=== PATIENT | female | born 1940 | race Caucasian/White ===

== ENCOUNTER 2017-01-06 09:52 | Emergency (ER) | payer MEDICARE ==
[2017-01-06 10:46] LABS: ABSOLUTE LYMPHOCYTES (AUTO) 1.8 10^3/uL (0.5-4.7); ABSOLUTE MONOCYTES (AUTO) 0.6 10^3/uL (0.1-1.4); ABSOLUTE NEUT (AUTO) 4.6 10^3/uL (1.7-8.2); BASOPHILS % (AUTO) 0.6 % (0-2); EOSINOPHILS % (AUTO) 0.1 % (0-6); HEMATOCRIT 41.3 % (36.0-47.0); HEMOGLOBIN 13.9 g/dL (12.0-15.5); HGB HCT DIFFERENCE 0.4; LYMPHOCYTES % (AUTO) 25.4 % (13-45); MEAN CORPUSCULAR HEMOGLOBIN 28.3 pg (27.0-33.4); MEAN CORPUSCULAR HGB CONC 33.8 g/dL (32.0-36.0); MEAN CORPUSCULAR VOLUME 84 fl (80-97); MONOCYTES % (AUTO) 8.3 % (3-13); RED BLOOD COUNT 4.92 10^6/uL (3.72-5.28); RED CELL DISTRIBUTION WIDTH 14.1 % (11.5-14.0); SEGMENTED NEUTROPHILS % (AUTO) 65.6 % (42-78)
--- NOTE | 2017-01-06 10:48 | ER Document Report ---
ED Medical Screen (RME) - General Chief Complaint: Leg Pain Stated Complaint: WEAKNESS,BODY PAIN Mode of Arrival: Ambulatory Information source: Patient TRAVEL OUTSIDE OF THE [place] IN LAST 30 DAYS: No - HPI Onset: Other - 2-3 DAYS Onset/Duration: Gradual Context: HAS NOT BEEN TAKING BP MEDS, SAYS THEY MAKE LEG PAINS WORSE. Quality of pain: Other - TIGHTNESS Severity: Mild Associated Symptoms: None - Related Data Allergies/Adverse Reactions: latex [Latex] Allergy (Intermediate, Verified 01/06/17 10:11) ITCHING levofloxacin [From Levaquin] Allergy (Unknown, Verified 01/06/17 10:11) aspirin [Aspirin] Adverse Reaction (Mild, Verified 01/06/17 10:11) Thins blood too much Penicillins Adverse Reaction (Mild, Verified 01/06/17 10:11) Yeast infections Past Medical History - General Information source: Patient - Past Medical History Cardiac Medical History: Reports: Hx Hypercholesterolemia, Hx Hypertension Denies: Hx Congestive Heart Failure, Hx Coronary Artery Disease, Hx Heart Attack, Hx Pulmonary Embolism Pulmonary Medical History: Reports: Hx Asthma, Hx Bronchitis, Hx COPD, Hx Pneumonia Neurological Medical History: Denies: Hx Cerebrovascular Accident, Hx Migraine, Hx Seizures Renal/ Medical History: Denies: Hx Peritoneal Dialysis GI Medical History: Reports: Hx Gastroesophageal Reflux Disease, Hx Hiatal Hernia. Denies: Hx Hepatitis, Hx Ulcer Musculoskeltal Medical History: Reports Hx Arthritis Psychiatric Medical History: Reports: Hx Depression - on occassion Infectious Medical History: Denies: Hx Hepatitis Past Surgical History: Reports: Hx Abdominal Surgery - ODELL, Hx Appendectomy, Hx Tonsillectomy. Denies: Hx Hysterectomy, Hx Mastectomy, Hx Open Heart Surgery , Hx Pacemaker - Immunizations Hx Diphtheria, Pertussis, Tetanus Vaccination: No Review of Systems - Review of Systems Constitutional: No symptoms reported EENT: No symptoms reported Cardiovascular: No symptoms reported Respiratory: No symptoms reported Musculoskeletal: See HPI Physical Exam - Vital signs Vitals: Temp Pulse Resp BP Pulse Ox 97.7 F 72 22 H 177/83 H 97 01/06/17 10:00 01/06/17 10:00 01/06/17 10:00 01/06/17 10:00 01/06/17 10:00 Interpretation: Hypertensive, Tachypneic - General General appearance: Appears well - Extremities General upper extremity: Normal inspection General lower extremity: Normal inspection. No: Edema Course - Vital Signs Vital signs: Temp Pulse Resp BP Pulse Ox 97.7 F 72 22 H 177/83 H 97 01/06/17 10:00 01/06/17 10:00 01/06/17 10:00 01/06/17 10:00 01/06/17 10:00 - Laboratory Result Diagrams: 01/06/17 10:34 01/06/17 10:34
[2017-01-06 11:10] LABS: ALANINE AMINOTRANSFERASE 22 U/L (9-52); ALBUMIN 4.4 g/dL (3.5-5.0); ALKALINE PHOSPHATASE 74 U/L (38-126); ANION GAP 11 (5-19); ASPARTATE AMINO TRANSFERASE 30 U/L (14-36); BILIRUBIN,DIRECT 0.2 mg/dL (0.0-0.4); BILIRUBIN,TOTAL 0.6 mg/dL (0.2-1.3); BLOOD UREA NITROGEN 8 mg/dL (7-20); CALCIUM 10.3 mg/dL (8.4-10.2); CARBON DIOXIDE 26 mmol/L (22-30); CHLORIDE 93 mmol/L (98-107); CREATINE KINASE 177 U/L (30-135); CREATININE RESULT 0.71 mg/dL (0.52-1.25); GLUCOSE 96 mg/dL (75-110); MAGNESIUM 1.7 mg/dL (1.6-2.3); POTASSIUM 5.7 mmol/L (3.6-5.0); TOTAL PROTEIN 6.6 g/dL (6.3-8.2)
[2017-01-06] MEDS ORDERED: NORMAL SALINE 1000 ML 1,000 ML IV ONE (12:02)
[2017-01-06 12:20] LABS: APPEARANCE,URINE CLEAR; BILIRUBIN,URINE NEGATIVE (NEGATIVE); GLUCOSE, URINE NEGATIVE (NEGATIVE); KETONES,URINE NEGATIVE (NEGATIVE); LEUKOCYTE ESTERASE,URINE NEGATIVE (NEGATIVE); NITRITE,URINE NEGATIVE (NEGATIVE); PROTEIN,URINE NEGATIVE (NEGATIVE); URINE SPECIFIC GRAVITY 1.009; UROBILINOGEN,URINE NEGATIVE mg/dL (<2.0)
--- NOTE | 2017-01-06 14:02 | ER Document Report ---
ED General - General Chief Complaint: Leg Pain Stated Complaint: WEAKNESS,BODY PAIN Mode of Arrival: Ambulatory TRAVEL OUTSIDE OF THE [place] IN LAST 30 DAYS: No - HPI Patient complains to provider of: generalized weakness leg pain cramping Notes: Patient coming in for generalized weakness leg pain cramping states is ongoing for greater than a week. Patient states that she thinks it may be due to her medication states that she's not been taking her medication. Patient's currently on valsartan for blood pressure and is noted to be hypertensive. Patient otherwise has no other complaints. Patient is seen ambulated around the assistance of a cane here in the ER without difficulty. Patient denies fevers chills nausea vomiting dysuria abdominal pain chest pain. Patient states that she thinks her electrolyte her low because of the cramping. - Related Data Allergies/Adverse Reactions: latex [Latex] Allergy (Intermediate, Verified 01/06/17 10:11) ITCHING levofloxacin [From Levaquin] Allergy (Unknown, Verified 01/06/17 10:11) aspirin [Aspirin] Adverse Reaction (Mild, Verified 01/06/17 10:11) Thins blood too much Penicillins Adverse Reaction (Mild, Verified 01/06/17 10:11) Yeast infections Past Medical History - General Information source: Patient - Social History Smoking Status: Never Smoker Chew tobacco use (# tins/day): No Frequency of alcohol use: None Drug Abuse: None Family History: Reviewed & Not Pertinent, DM, Hypertension, Malignancy Patient has suicidal ideation: No Patient has homicidal ideation: No - Past Medical History Cardiac Medical History: Reports: Hx Hypercholesterolemia, Hx Hypertension Denies: Hx Congestive Heart Failure, Hx Coronary Artery Disease, Hx Heart Attack, Hx Pulmonary Embolism Pulmonary Medical History: Reports: Hx Asthma, Hx Bronchitis, Hx COPD, Hx Pneumonia Neurological Medical History: Denies: Hx Cerebrovascular Accident, Hx Migraine, Hx Seizures Renal/ Medical History: Denies: Hx Peritoneal Dialysis GI Medical History: Reports: Hx Gastroesophageal Reflux Disease, Hx Hiatal Hernia. Denies: Hx Hepatitis, Hx Ulcer Musculoskeltal Medical History: Reports Hx Arthritis Psychiatric Medical History: Reports: Hx Depression - on occassion Infectious Medical History: Denies: Hx Hepatitis Past Surgical History: Reports: Hx Abdominal Surgery - ODELL, Hx Appendectomy, Hx Tonsillectomy. Denies: Hx Hysterectomy, Hx Mastectomy, Hx Open Heart Surgery , Hx Pacemaker - Immunizations Hx Diphtheria, Pertussis, Tetanus Vaccination: No Hx Pneumococcal Vaccination: 07/10/15 Review of Systems - Review of Systems Constitutional: Weakness - Cramping EENT: No symptoms reported Cardiovascular: No symptoms reported Respiratory: No symptoms reported Gastrointestinal: No symptoms reported Genitourinary: No symptoms reported Female Genitourinary: No symptoms reported Musculoskeletal: No symptoms reported Skin: No symptoms reported Hematologic/Lymphatic: No symptoms reported Neurological/Psychological: No symptoms reported Physical Exam - Vital signs Vitals: Temp Pulse Resp BP Pulse Ox 97.7 F 72 22 H 177/83 H 97 01/06/17 10:00 01/06/17 10:00 01/06/17 10:00 01/06/17 10:00 01/06/17 10:00 Interpretation: Normal - General General appearance: Appears well, Alert - HEENT Head: Normocephalic, Atraumatic Eyes: Normal Pupils: PERRL - Respiratory Respiratory status: No respiratory distress Chest status: Nontender Breath sounds: Normal Chest palpation: Normal - Cardiovascular Rhythm: Regular Heart sounds: Normal auscultation Murmur: No - Abdominal Inspection: Normal Distension: No distension Bowel sounds: Normal Tenderness: Nontender Organomegaly: No organomegaly - Back Back: Normal, Nontender - Extremities General upper extremity: Normal inspection, Nontender, Normal color, Normal ROM , Normal temperature General lower extremity: Normal inspection, Nontender, Normal color, Normal ROM , Normal temperature, Normal weight bearing. No: Robert's sign - Neurological Neuro grossly intact: Yes Cognition: Normal Orientation: AAOx4 [place] Coma Scale Eye Opening: Spontaneous [place]ma[place] Coma Scale Verbal: Oriented [place] Coma Scale Motor: Obeys Commands [place] Coma Scale Total: 15 Speech: Normal Motor strength normal: LUE, RUE, LLE, RLE Sensory: Normal - Psychological Associated symptoms: Normal affect, Normal mood - Skin Skin Temperature: Warm Skin Moisture: Dry Skin Color: Normal Course - Re-evaluation Re-evalutation: 01/06/17 13:58 Patient's lab work does show a low sodium and elevated potassium of 5.7. Patient was given a liter fluid here and able tolerate by mouth. Patient importance of taking medication and the need follow-up with primary care physician. Patient although complaining of weakness is able ambulate and shows no focal deficits. Patient will be discharged home follow-up with her PCP in approximately one week. 01/06/17 14:01 EKG does not show any critical etiology - Vital Signs Vital signs: Temp Pulse Resp BP Pulse Ox 97.7 F 72 14 164/82 H 97 01/06/17 10:00 01/06/17 10:00 01/06/17 12:01 01/06/17 12:01 01/06/17 12:01 - Laboratory Result Diagrams: 01/06/17 10:34 01/06/17 10:34 Laboratory results interpreted by me: 01/06/17 01/06/17 10:34 10:34 RDW 14.1 H Sodium 130.0 L Potassium 5.7 H Chloride 93 L Calcium 10.3 H Creatine Kinase 177 H Discharge - Discharge Clinical Impression: Muscle cramping, General weakness Condition: Good Disposition: HOME, SELF-CARE Additional Instructions: Your laboratory studies today showed no signs of infection or serious etiology. Your sodium was low and your potassium was a little bit elevated indicating that she may not be drinking enough water are correct fluids to stay hydrated. Your blood pressure was also elevated today to as well. I would highly recommend following up with your primary care physician at the end of the week Referrals: RUBI AGUIAR MD [Primary Care Provider] - Follow up in 3-5 days
[2017-01-06 14:44] VITALS: BP 181/84
--- NOTE | 2017-01-06 22:50 | EKG REPORT ---
SEVERITY:- NORMAL ECG - SINUS RHYTHM : Confirmed by: Simran Pulliam 06-Jan-2017 22:49:52
== END 2017-01-06 14:50 | disposition home or self-care (01) ==
LOC: ER 09:52
DX: R53.1 Weakness (principal); R25.2 Cramp and spasm; I10 Essential (primary) hypertension; E78.00 Pure hypercholesterolemia, unspecified; J44.9 Chronic obstructive pulmonary disease, unspecified; Z91.040 Latex allergy status; Z88.6 Allergy status to analgesic agent; Z88.0 Allergy status to penicillin
CPT/HCPCS: 93005; 99285; 96360; 36415; 82550; 83735; 85025; 80053; 81001; 93010; J7030

== ENCOUNTER → 2017-02-19 | Outpatient (CLI) | payer MEDICARE ==
--- NOTE | 2017-02-19 16:09 | RADIOLOGY REPORT (SQ) ---
EXAM DESCRIPTION: CT ABD/PELVIS ORAL ONLY COMPLETED DATE/TIME: 02/19/2017 10:27 am REASON FOR STUDY: INTRA-ABDOMINAL AND PELVIC SWELLING, MASS AND LUMP UNSPEC SITE (R19.00) R19.00 IN TRA-ABD AND PELVIC SWELLING, MASS AND LUMP, UNSP SI COMPARISON: 06/16/2015. TECHNIQUE: CT scan of the abdomen and pelvis performed with oral contrast and no intravenous contras t. Images reviewed with lung, soft tissue, and bone windows. Reconstructed coronal and sagittal MPR i mages reviewed. All images stored on PACS. All CT scanners at this facility use dose modulation, iterative reconstruction, and/or weight based d osing when appropriate to reduce radiation dose to as low as reasonably achievable (ALARA). [facility]: Dose Right [facility]: CareDose [facility]: Dose Right [facility]: Teradose 4D [facility]: Smart IQMS RADIATION DOSE: Up-to-date CT equipment and radiation dose reduction techniques were employed. CTDIv ol: 13.4 mGy. DLP: 626 mGy-cm. mGy. LIMITATIONS: None. FINDINGS: LOWER CHEST: No significant findings. No nodules or infiltrates. NON-CONTRASTED LIVER, SPLEEN, ADRENALS: Evaluation limited by lack of IV contrast. Stable 2.2 cm lef t adrenal mass. No other identified significant masses. PANCREAS: No masses. No peripancreatic inflammatory changes. GALLBLADDER: No identified stones by CT criteria. No inflammatory changes to suggest cholecystitis. RIGHT KIDNEY AND URETER: No suspicious masses. Assessment limited by lack of IV contrast. No signif icant calcifications. No hydronephrosis or hydroureter. LEFT KIDNEY AND URETER: Stable cortical cyst. No suspicious masses. Assessment limited by lack of IV contrast. No significant calcifications. No hydronephrosis or hydroureter. AORTA AND RETROPERITONEUM: No aneurysm. No retroperitoneal masses or adenopathy. BOWEL AND PERITONEAL CAVITY: Moderate hiatal hernia. No obvious masses or inflammatory changes. No f ree fluid. APPENDIX: Surgically absent. PELVIS, BLADDER, AND ABDOMINAL WALL: Calcified uterine fibroid. No abdominal wall hernias. Bladder un remarkable. BONES: Sclerotic appearance of the L2 and L3 vertebral bodies with compression deformities. Hardware in the right femur. OTHER: No other significant finding. IMPRESSION: 1. STABLE LEFT ADRENAL MASS. 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 2. MODERATE HIATAL HERNIA. 3. CALCIFIED UTERINE FIBROID. 4. 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 5. COMPRESSION DEFORMITIES OF THE L2 AND L3 VERTEBRAL BODIES. AGE INDETERMINATE BUT NOT PRESENT IN O CTOBER 2014. 6. NO OTHER SIGNIFICANT FINDINGS. TECHNICAL DOCUMENTATION: JOB ID: [id number] Quality ID # [id number]: Final reports with documentation of one or more dose reduction techniques (e.g., Au tomated exposure control, adjustment of the mA and/or kV according to patient size, use of iterative reconstruction technique) 2010 [employer]- All Rights Reserved
== END ==
LOC: RAD 07:48
PROVIDERS: ATTEND Family Medicine
DX: R19.00 Intra-abdominal and pelvic swelling, mass and lump, unspecified site (principal)
CPT/HCPCS: 74176

== ENCOUNTER → 2017-10-17 | Outpatient (CLI) | payer MEDICARE ==
--- NOTE | 2017-10-17 12:17 | RADIOLOGY REPORT (SQ) ---
EXAM DESCRIPTION: U/S NON-OB PELVIS TV W/O DOP COMPLETED DATE/TIME: 10/17/2017 12:04 pm REASON FOR STUDY: EXCESSIVE AND FREQUENT MENSTRUATION W/REGULAR CYCLE (N92.0) N92.0 EXCESSIVE AND F REQUENT MENSTRUATION WITH REGULAR CYCLE COMPARISON: CT abdomen pelvis 02/19/2017 TECHNIQUE: Dynamic and static grayscale images acquired of the pelvis via transabdominal and transva ginal approach and recorded on PACS. Additional selected color Doppler and spectral images recorded. LIMITATIONS: Adnexal bowel gas FINDINGS: UTERUS: Contour normal. No mass. Uterus is 9.5 x 6 x 4 cm in size with a 5 cm calcified fundal fibroid. ENDOMETRIAL STRIPE: Difficult to visualize on both transabdominal and endovaginal scanning. CERVIX: No nabothian cysts. Closed, 2.3 cm in length. RIGHT OVARY: Not visualized RIGHT OVARY DOPPLER: Not performed LEFT OVARY: Not visualized LEFT OVARY DOPPLER: Not performed FREE FLUID: None noted. OTHER: No other significant finding. IMPRESSION: Fibroid uterus. Endometrial stripe not well-visualized. Ovaries not visualized due to adnexal bowel gas TECHNICAL DOCUMENTATION: JOB ID: [id number] [employer]- All Rights Reserved
== END ==
LOC: RAD 10:59
PROVIDERS: ATTEND Physician Assistant
DX: N92.0 Excessive and frequent menstruation with regular cycle (principal); D25.9 Leiomyoma of uterus, unspecified
CPT/HCPCS: 76830

== ENCOUNTER 2017-11-07 08:59 | Inpatient (IN) | payer MEDICARE ==
[2017-11-07] MEDS ORDERED: OXYCODONE-ACETAMINOPHEN 5-325 MG TABLET PO ONE (10:07)
[2017-11-07 10:30] LABS: ABSOLUTE LYMPHOCYTES (AUTO) 0.6 10^3/uL (0.5-4.7); ABSOLUTE MONOCYTES (AUTO) 0.4 10^3/uL (0.1-1.4); ABSOLUTE NEUT (AUTO) 9.2 10^3/uL (1.7-8.2); BASOPHILS % (AUTO) 0.5 % (0-2); HEMATOCRIT 39.8 % (36.0-47.0); HEMOGLOBIN 13.8 g/dL (12.0-15.5); MEAN CORPUSCULAR HEMOGLOBIN 28.6 pg (27.0-33.4); MEAN CORPUSCULAR HGB CONC 34.7 g/dL (32.0-36.0); MEAN CORPUSCULAR VOLUME 83 fl (80-97); PLATELET COUNT 246 10^3/uL (150-450); RED BLOOD COUNT 4.83 10^6/uL (3.72-5.28); RED CELL DISTRIBUTION WIDTH 14.1 % (11.5-14.0); SEGMENTED NEUTROPHILS % (AUTO) 89.5 % (42-78); TOTAL CELLS COUNTED % (AUTO) 100 %; WHITE BLOOD COUNT 10.3 10^3/uL (4.0-10.5)
[2017-11-07 10:43] LABS: APPEARANCE,URINE CLEAR; BILIRUBIN,URINE NEGATIVE (NEGATIVE); COLOR,URINE YELLOW; GLUCOSE, URINE NEGATIVE (NEGATIVE); KETONES,URINE NEGATIVE (NEGATIVE); LEUKOCYTE ESTERASE,URINE NEGATIVE (NEGATIVE); NITRITE,URINE NEGATIVE (NEGATIVE); PROTEIN,URINE NEGATIVE (NEGATIVE); URINE SPECIFIC GRAVITY 1.009; UROBILINOGEN,URINE NEGATIVE mg/dL (<2.0)
[2017-11-07 10:47] LABS: ANION GAP 12 (5-19); BLOOD UREA NITROGEN 10 mg/dL (7-20); CALCIUM 9.4 mg/dL (8.4-10.2); CARBON DIOXIDE 22 mmol/L (22-30); CHLORIDE 83 mmol/L (98-107); GLUCOSE 118 mg/dL (75-110)
[2017-11-07 10:54] LABS: SODIUM 116.6 mmol/L (137-145)
[2017-11-07] MEDS ORDERED: NORMAL SALINE 500 ML IV ONE (11:10)
--- NOTE | 2017-11-07 12:11 | RADIOLOGY REPORT (SQ) ---
EXAM DESCRIPTION: L SPINE 2 VIEWS COMPLETED DATE/TIME: 11/07/2017 10:36 am REASON FOR STUDY: fall COMPARISON: Abdominal CT scan dated February 2017 NUMBER OF VIEWS: Two views. TECHNIQUE: AP and lateral radiographic images acquired of the lumbar spine. LIMITATIONS: None. FINDINGS: MINERALIZATION: Normal. SEGMENTATION: Normal. No transitional anatomy. ALIGNMENT: Normal. VERTEBRAE: There are mild compression deformities involving the L2 and L3 vertebra unchanged from the previous CT scan. No other vertebral compressions are identified. DISCS: Degenerative changes are identified at the L5-S1 level. No significant disc space reduction i s seen. POSTERIOR ELEMENTS: Pedicles and facets are intact. No pars defect or posterior arch defects. HARDWARE: None in the spine. PARASPINAL SOFT TISSUES: Normal. PELVIS: Intact as visualized. No fractures or worrisome bone lesions. SI joints intact. OTHER: Calcified mass is identified in the pelvis consistent with calcified uterine fibroids which we re present on the previous CT scan IMPRESSION: There are mild compression deformities involving the L2 and L3 vertebra unchanged from t he previous CT scan. No other vertebral compressions are identified. Other findings as noted TECHNICAL DOCUMENTATION: JOB ID: [id number]- All Rights Reserved Reading location - IP/workstation name: [email or web address]
[2017-11-07] MEDS ORDERED: MAGNESIUM SULFATE/D5W 1 GM/100 ML RTUPB IV ONE (12:19)
--- NOTE | 2017-11-07 12:44 | RADIOLOGY REPORT (SQ) ---
EXAM DESCRIPTION: SACRUM AND COCCYX COMPLETED DATE/TIME: 11/07/2017 10:36 am REASON FOR STUDY: fall COMPARISON: CT abdomen and pelvis 02/19/2017 NUMBER OF VIEWS: Three views. TECHNIQUE: AP, lateral, and tilt views of the sacrum and coccyx. LIMITATIONS: Demineralization and bowel gas limits detail. FINDINGS: MINERALIZATION: Bony structures appear demineralized. BONES: Irregularity the lower portion sacrum concerning for nondisplaced fracture, appearance differe nt from prior sagittal CT. SOFT TISSUES: 7 cm central pelvic calcification concerning for uterine fibroid as seen on prior CT. OTHER: No other significant finding. IMPRESSION: Possible nondisplaced fracture lower sacrum. COMMENT: Detail limited as noted above. TECHNICAL DOCUMENTATION: JOB ID: [id number] [employer]- All Rights Reserved Reading location - IP/workstation name: [email or web address]
--- NOTE | 2017-11-07 12:44 | ER Document Report ---
ED General - General Chief Complaint: Fall Stated Complaint: FALL BACK PAIN Time Seen by Provider: 11/07/17 10:00 Information source: Patient TRAVEL OUTSIDE OF THE [place] IN LAST 30 DAYS: No - HPI Patient complains to provider of: fall Onset: Just prior to arrival Onset/Duration: Sudden Quality of pain: Dull - low back pain Severity: Moderate Pain Level: 2 Associated symptoms: None Exacerbated by: Denies Relieved by: Denies Similar symptoms previously: No Recently seen / treated by doctor: Yes - placed on bactrim for UTI last Notes: States she was sitting in her recliner chair. She put the recliner back into a sitting position and got up. She states she then saw a flash of light like a car driving by which caused her to lose her balance and fall onto her buttocks. Consciousness or pain - Related Data Allergies/Adverse Reactions: latex [Latex] Allergy (Intermediate, Verified 01/06/17 10:11) ITCHING levofloxacin [From Levaquin] Allergy (Unknown, Verified 01/06/17 10:11) aspirin [Aspirin] Adverse Reaction (Mild, Verified 01/06/17 10:11) Thins blood too much Penicillins Adverse Reaction (Mild, Verified 01/06/17 10:11) Yeast infections Past Medical History - General Information source: Patient - Social History Smoking Status: Never Smoker Chew tobacco use (# tins/day): No Frequency of alcohol use: None Drug Abuse: None Lives with: Alone Family History: Reviewed & Not Pertinent, DM, Hypertension, Malignancy Patient has suicidal ideation: No Patient has homicidal ideation: No - Past Medical History Cardiac Medical History: Reports: Hx Hypercholesterolemia, Hx Hypertension Denies: Hx Congestive Heart Failure, Hx Coronary Artery Disease, Hx Heart Attack, Hx Pulmonary Embolism Pulmonary Medical History: Reports: Hx Asthma, Hx Bronchitis, Hx COPD, Hx Pneumonia Neurological Medical History: Denies: Hx Cerebrovascular Accident, Hx Migraine, Hx Seizures Renal/ Medical History: Denies: Hx Peritoneal Dialysis GI Medical History: Reports: Hx Gastroesophageal Reflux Disease, Hx Hiatal Hernia. Denies: Hx Hepatitis, Hx Ulcer Musculoskeltal Medical History: Reports Hx Arthritis Psychiatric Medical History: Reports: Hx Depression - on occassion Infectious Medical History: Denies: Hx Hepatitis Past Surgical History: Reports: Hx Abdominal Surgery - ODELL, Hx Appendectomy, Hx Orthopedic Surgery, Hx Tonsillectomy. Denies: Hx Hysterectomy, Hx Mastectomy , Hx Open Heart Surgery, Hx Pacemaker - Immunizations Hx Diphtheria, Pertussis, Tetanus Vaccination: No Hx Pneumococcal Vaccination: 07/10/15 Review of Systems - Review of Systems Constitutional: No symptoms reported EENT: No symptoms reported Cardiovascular: No symptoms reported Respiratory: No symptoms reported Gastrointestinal: No symptoms reported Genitourinary: No symptoms reported Female Genitourinary: No symptoms reported Musculoskeletal: See HPI, Back pain Skin: No symptoms reported Hematologic/Lymphatic: No symptoms reported Neurological/Psychological: No symptoms reported Physical Exam - Vital signs Vitals: Resp Pulse Ox 19 100 11/07/17 09:07 11/07/17 09:07 - Notes Notes: PHYSICAL EXAMINATION: GENERAL: Well-appearing, well-nourished and in no acute distress. HEAD: Atraumatic, normocephalic. EYES: Pupils equal round and reactive to light, extraocular movements intact, conjunctiva are normal. ENT: Nares patent, oropharynx clear without exudates. Moist mucous membranes. NECK: Normal range of motion, supple without lymphadenopathy LUNGS: Breath sounds clear to auscultation bilaterally and equal. No wheezes rales or rhonchi. HEART: Regular rate and rhythm without murmurs ABDOMEN: Soft, nontender, nondistended abdomen. No guarding, no rebound. No masses appreciated. Female : deferred Musculoskeletal: Normal range of motion, no pitting or edema. No cyanosis. No pain with palpation of the lumbar bony spine. NEUROLOGICAL: Cranial nerves grossly intact. Normal speech, normal gait. Normal sensory, motor exams PSYCH: Normal mood, normal affect. SKIN: Warm, Dry, normal turgor, no rashes or lesions noted. Course - Re-evaluation Re-evalutation: 11/07/17 15:19 She remained hemodynamically stable throughout her stay in the emergency department. She was accepted for observation by Dr. Bai her primary medical doctor. - Vital Signs Vital signs: Temp Pulse Resp BP Pulse Ox 97.9 F 25 H 160/76 H 93 11/07/17 09:10 11/07/17 13:01 11/07/17 13:01 11/07/17 13:01 11/07/17 15:19 Labs- All tests 24 hr 11/07/17 11/07/17 11/07/17 09:35 09:35 10:12 WBC 10.3 RBC 4.83 Hgb 13.8 Hct 39.8 MCV 83 MCH 28.6 MCHC 34.7 RDW 14.1 H Plt Count 246 Seg Neutrophils % 89.5 H Lymphocytes % 6.0 L Monocytes % 4.0 Eosinophils % 0.0 Basophils % 0.5 Absolute Neutrophils 9.2 H Absolute Lymphocytes 0.6 Absolute Monocytes 0.4 Absolute Eosinophils 0.0 Absolute Basophils 0.0 Sodium Potassium Chloride Carbon Dioxide Anion Gap BUN Creatinine Est GFR ( Amer) Est GFR (Non-Af Amer) Glucose Serum Osmolality Calcium Magnesium Urine Color YELLOW Urine Appearance CLEAR Urine pH 8.0 Ur Specific Edison 1.009 Urine Protein NEGATIVE Urine Glucose (UA) NEGATIVE Urine Ketones NEGATIVE Urine Blood NEGATIVE Urine Nitrite NEGATIVE Urine Bilirubin NEGATIVE Urine Urobilinogen NEGATIVE Ur Leukocyte Esterase NEGATIVE Urine WBC (Auto) 0 Urine RBC (Auto) 4 Urine Bacteria (Auto) TRACE Squamous Epi Cells Auto 1 Urine Mucus (Auto) RARE Urine Osmolality 320 Urine Sodium 50 Urine Ascorbic Acid NEGATIVE 11/07/17 11/07/17 11/07/17 10:12 10:12 12:54 WBC RBC Hgb Hct MCV MCH MCHC RDW Plt Count Seg Neutrophils % Lymphocytes % Monocytes % Eosinophils % Basophils % Absolute Neutrophils Absolute Lymphocytes Absolute Monocytes Absolute Eosinophils Absolute Basophils Sodium 116.6 L* 118.1 L* Potassium 4.0 3.6 Chloride 83 L 86 L Carbon Dioxide 22 23 Anion Gap 12 9 BUN 10 9 Creatinine 0.59 0.61 Est GFR ( Amer) > 60 > 60 Est GFR (Non-Af Amer) > 60 > 60 Glucose 118 H 122 H Serum Osmolality Calcium 9.4 8.7 Magnesium 1.5 L Urine Color Urine Appearance Urine pH Ur Specific Edison Urine Protein Urine Glucose (UA) Urine Ketones Urine Blood Urine Nitrite Urine Bilirubin Urine Urobilinogen Ur Leukocyte Esterase Urine WBC (Auto) Urine RBC (Auto) Urine Bacteria (Auto) Squamous Epi Cells Auto Urine Mucus (Auto) Urine Osmolality Urine Sodium Urine Ascorbic Acid 11/07/17 12:54 WBC RBC Hgb Hct MCV MCH MCHC RDW Plt Count Seg Neutrophils % Lymphocytes % Monocytes % Eosinophils % Basophils % Absolute Neutrophils Absolute Lymphocytes Absolute Monocytes Absolute Eosinophils Absolute Basophils Sodium Potassium Chloride Carbon Dioxide Anion Gap BUN Creatinine Est GFR ( Amer) Est GFR (Non-Af Amer) Glucose Serum Osmolality 244 L Calcium Magnesium Urine Color Urine Appearance Urine pH Ur Specific Edison Urine Protein Urine Glucose (UA) Urine Ketones Urine Blood Urine Nitrite Urine Bilirubin Urine Urobilinogen Ur Leukocyte Esterase Urine WBC (Auto) Urine RBC (Auto) Urine Bacteria (Auto) Squamous Epi Cells Auto Urine Mucus (Auto) Urine Osmolality Urine Sodium Urine Ascorbic Acid - Laboratory Result Diagrams: 11/07/17 10:12 11/07/17 12:54 Laboratory results interpreted by me: 11/07/17 11/07/17 11/07/17 10:12 10:12 10:12 RDW 14.1 H Seg Neutrophils % 89.5 H Lymphocytes % 6.0 L Absolute Neutrophils 9.2 H Sodium 116.6 L* Chloride 83 L Glucose 118 H Serum Osmolality Magnesium 1.5 L 11/07/17 11/07/17 12:54 12:54 RDW Seg Neutrophils % Lymphocytes % Absolute Neutrophils Sodium 118.1 L* Chloride 86 L Glucose 122 H Serum Osmolality 244 L Magnesium Discharge - Discharge Clinical Impression: Hypomagnesemia, Hyponatremia Fall Qualifiers: Encounter type: initial encounter Qualified Code(s): W19.XXXA - Unspecified fall, initial encounter Condition: Stable Disposition: ADMITTED OBSERVATION Admitting Provider: Bia Unit Admitted: Medical Floor
--- NOTE | 2017-11-07 13:00 | EKG REPORT ---
SEVERITY:- ABNORMAL ECG - SINUS RHYTHM LVH WITH SECONDARY REPOLARIZATION ABNORMALITY BORDERLINE PROLONGED QT INTERVAL : Confirmed by: Mohsen You MD 07-Nov-2017 12:59:35
[2017-11-07] MEDS ORDERED: NORMAL SALINE 1000 ML 1,000 ML IV PRN (13:06)
[2017-11-07] MEDS ORDERED: ACETAMINOPHEN 325 MG TABLET PO PRN (13:06)
[2017-11-07 13:27] LABS: ANION GAP 9 (5-19); BLOOD UREA NITROGEN 9 mg/dL (7-20); CALCIUM 8.7 mg/dL (8.4-10.2); CARBON DIOXIDE 23 mmol/L (22-30); CHLORIDE 86 mmol/L (98-107); GLUCOSE 122 mg/dL (75-110); POTASSIUM 3.6 mmol/L (3.6-5.0)
[2017-11-07 13:36] LABS: SODIUM 118.1 mmol/L (137-145)
[2017-11-07 14:14] LABS: URINE SODIUM 50 mmol/L (30-90)
[2017-11-07 14:15] LABS: OSMOLALITY,URINE 320 mOsm/kg (300-900)
[2017-11-07] MEDS ORDERED: RANITIDINE HCL 75 MG PO PRN (14:17)
[2017-11-07] MEDS ORDERED: ENOXAPARIN SODIUM INJ 40 MG/0.4 ML DISP.SYRIN SUBCUT ONE (15:30)
--- NOTE | 2017-11-07 16:34 | RADIOLOGY REPORT (SQ) ---
EXAM DESCRIPTION: CT CHEST WITHOUT COMPLETED DATE/TIME: 11/07/2017 3:15 pm REASON FOR STUDY: cough/hyponatremia COMPARISON: 07/31/2013. TECHNIQUE: CT scan performed of the chest without intravenous contrast. Images reviewed with lung, soft tissue and bone windows. Reconstructed coronal and sagittal MPR images reviewed. All images st ored on PACS. All CT scanners at this facility use dose modulation, iterative reconstruction, and/or weight based d osing when appropriate to reduce radiation dose to as low as reasonably achievable (ALARA). [facility]: Dose Right [facility]: CareDose [facility]: Dose Right [facility]: Teradose 4D [facility]: Smart [employer] RADIATION DOSE: CT Rad equipment meets quality standard of care and radiation dose reduction techniq ues were employed. CTDIvol: 8.2 mGy. DLP: 291 mGy-cm. mGy. LIMITATIONS: No technical limitations. FINDINGS: LUNGS AND PLEURA: Scattered chronic interstitial parenchymal scarring. No masses, infiltr ates, pneumothorax. No pleural effusions, calcifications. HILAR AND MEDIASTINAL STRUCTURES: No identified masses or abnormal nodes. No obvious aneurysm. HEART AND VASCULAR STRUCTURES: No aneurysm. No pericardial effusion. UPPER ABDOMEN: No significant findings. Limited exam. THYROID AND OTHER SOFT TISSUES: No masses. No adenopathy. BONES: No significant finding. HARDWARE: None in the chest. OTHER: No other significant findings. IMPRESSION: SCATTERED CHRONIC INTERSTITIAL PARENCHYMAL SCARRING. NO ACUTE FINDING ON NON-CONTRASTED CHEST CT. TECHNICAL DOCUMENTATION: JOB ID: [id number] Quality ID # [id number]: Final reports with documentation of one or more dose reduction techniques (e.g., Au tomated exposure control, adjustment of the mA and/or kV according to patient size, use of iterative reconstruction technique) 2010 [employer]- All Rights Reserved Reading location - IP/workstation name: [email or web address]
[2017-11-07] MEDS: FAMOTIDINE 20 MG TABLET PO PRN (17:07)
[2017-11-07] MEDS ORDERED: MAG HYDROX/AL HYDROX/SIMETH SUSP 30 ML UDCUP PO PRN (17:19)
[2017-11-07 18:18] LABS: BLOOD UREA NITROGEN 8 mg/dL (7-20); CALCIUM 8.8 mg/dL (8.4-10.2); CARBON DIOXIDE 21 mmol/L (22-30); CHLORIDE 87 mmol/L (98-107); GLUCOSE 127 mg/dL (75-110); POTASSIUM 3.6 mmol/L (3.6-5.0)
[2017-11-07 18:20] LABS: ANION GAP 9 (5-19)
[2017-11-07 18:37] LABS: SODIUM 116.8 mmol/L (137-145)
--- NOTE | 2017-11-07 19:00 | PDOC H&P ---
History of Present Illness Admission Date/PCP: 11/07/17 13:12 RUBI AGUIAR MD Patient complains of: Fall and the back pain History of Present Illness: BHUPINDER Walsh LADUE is a 77 year old female This 77-year-old female with a significant history of the scoliosis history of the hypertension hyperlipidemia recently came to the office last week with the urinary tract infections started on the Bactrim patient's recently fall and a complaint of back pain and in the emergency department patient's Norma Cocyx fracture and patient also have a severe hyponatremia Other than the back problem patient's denied any dizziness no weakness no muscle ache no body ache Patient's repeat sodium was 118 Patients only new med is the Bactrim no other new medications Patient's denied any chest pain denied any shortness of the breath no weight loss And also significant history of the asthma and a history of the acid reflux With the severe hyponatremia and a fall and fracture decided to admit in the hospital for further evaluation and treatments Past Medical History Cardiac Medical History: Reports: Hyperlipidema, Hypertension Denies: Congestive Heart Failure, Coronary Artery Disease, Myocardial Infarction, Pulmonary Embolism Pulmonary Medical History: Reports: Asthma, Bronchitis, Chronic Obstructive Pulmonary Disease (COPD), Pneumonia Neurological Medical History: Denies: Migraine, Seizures GI Medical History: Reports: Gastroesophageal Reflux Disease, Hiatal Hernia Denies: Hepatitis Musculoskeltal Medical History: Reports: Arthritis Psychiatric Medical History: Reports: Depression - on occassion Hematology: Reports: Anemia - WITH LEG SURGERY Denies: Sickle Cell Disease Past Surgical History Past Surgical History: Reports: Appendectomy, Orthopedic Surgery, Tonsillectomy Denies: Amputation, Hysterectomy, Mastectomy, Pacemaker Social History Smoking Status: Never Smoker Frequency of Alcohol Use: None Hx Recreational Drug Use: No Drugs: None Hx Prescription Drug Abuse: No Family History Family History: Reviewed & Not Pertinent, DM, Hypertension, Malignancy Parental Family History Reviewed: Yes Children Family History Reviewed: Yes Sibling(s) Family History Reviewed.: Yes Medication/Allergy Home Medications: Albuterol Sulfate [Ventolin 0.083% Neb 2.5 mg/3 ml Ampul] 1 vial NEB BID Albuterol Sulfate [Ventolin Hfa] 2 puff IH Q4 11/07/17 Cholecalciferol (Vitamin D3) [Vitamin D3 2000 unit Tablet] 2,000 unit PO DAILY 11/07/17 Citalopram Hydrobromide [Celexa] 1 tab PO DAILY 11/07/17 Diclofenac Sodium [Voltaren] 4 gm TP QIDP PRN 11/07/17 Fluticasone/Salmeterol [Advair 250-50 Diskus 28 dose] 1 inh IH Q12H 11/07/17 Meloxicam [Mobic] 7.5 mg PO DAILY 11/07/17 Montelukast Sodium [Singulair 10 mg Tablet] 10 mg PO QHS 11/07/17 Nystatin [Mycostatin Cream] 1 applic TP BID 11/07/17 Olopatadine HCl [Patanol 0.1% Oph Soln 5 ml] 1 drop OP BID 11/07/17 Ranitidine HCl [Acid [employer]] 75 mg PO BIDP PRN 11/07/17 Tramadol HCl [Ultram 50 mg Tablet] 50 mg PO BIDP PRN 11/07/17 Valsartan [Diovan 80 mg Tablet] 80 mg PO Q12 11/07/17 Allergies/Adverse Reactions: latex [Latex] Allergy (Intermediate, Verified 01/06/17 10:11) ITCHING levofloxacin [From Levaquin] Allergy (Unknown, Verified 01/06/17 10:11) aspirin [Aspirin] Adverse Reaction (Mild, Verified 01/06/17 10:11) Thins blood too much Penicillins Adverse Reaction (Mild, Verified 01/06/17 10:11) Yeast infections Review of Systems Constitutional: PRESENT: weakness. ABSENT: chills, fever(s), headache(s), weight gain, weight loss Eyes: ABSENT: visual disturbances Ears: ABSENT: hearing changes Cardiovascular: ABSENT: chest pain, dyspnea on exertion, edema, orthropnea, palpitations Respiratory: ABSENT: cough, hemoptysis Gastrointestinal: ABSENT: abdominal pain, constipation, diarrhea, hematemesis, hematochezia, nausea, vomiting Genitourinary: ABSENT: dysuria, hematuria Musculoskeletal: ABSENT: joint swelling Integumentary: ABSENT: rash, wounds Neurological: ABSENT: abnormal gait, abnormal speech, confusion, dizziness, focal weakness, syncope Psychiatric: ABSENT: anxiety, depression, homidical ideation, suicidal ideation Endocrine: ABSENT: cold intolerance, heat intolerance, menstrual abnormalities, polydipsia, polyuria Hematologic/Lymphatic: ABSENT: easy bleeding, easy bruising, lymphadenopathy Physical Exam Vital Signs: Temp Pulse Resp BP Pulse Ox 97.9 F 25 H 160/76 H 93 11/07/17 09:10 11/07/17 13:01 11/07/17 13:01 11/07/17 13:01 Physical Exam: Patient with significant Kyphoscoliosis General appearance: PRESENT: no acute distress, well-developed, well-nourished Head exam: PRESENT: atraumatic, normocephalic Eye exam: PRESENT: conjunctiva pink, EOMI, PERRLA. ABSENT: scleral icterus Ear exam: PRESENT: normal external ear exam Mouth exam: PRESENT: moist, tongue midline Neck exam: PRESENT: full ROM. ABSENT: carotid bruit, JVD, lymphadenopathy, thyromegaly Respiratory exam: PRESENT: clear to auscultation candelario Cardiovascular exam: PRESENT: RRR. ABSENT: diastolic murmur, rubs, systolic murmur Pulses: PRESENT: normal dorsalis pedis pul, +2 pedal pulses bilateral Vascular exam: PRESENT: normal capillary refill GI/Abdominal exam: PRESENT: normal bowel sounds, soft. ABSENT: distended, guarding, mass, organolmegaly, rebound, tenderness Rectal exam: PRESENT: deferred Extremities exam: ABSENT: pedal edema Neurological exam: PRESENT: alert, awake, oriented to person, oriented to place , oriented to time, oriented to situation, CN II-XII grossly intact. ABSENT: motor sensory deficit Psychiatric exam: PRESENT: appropriate affect, normal mood. ABSENT: homicidal ideation, suicidal ideation Skin exam: PRESENT: dry, intact, warm. ABSENT: cyanosis, rash Results Impressions: Lumbar Spine X-Ray 11/07/17 10:10 IMPRESSION: There are mild compression deformities involving the L2 and L3 vertebra unchanged from the previous CT scan. No other vertebral compressions are identified. Other findings as noted Sacrum and Coccyx X-Ray 11/07/17 10:10 IMPRESSION: Possible nondisplaced fracture lower sacrum. Assessment & Plan - Diagnosis (1) Fall Qualifiers: Encounter type: initial encounter Qualified Code(s): W19.XXXA - Unspecified fall, initial encounter Is this a current diagnosis for this admission?: Yes Plan: We will consult the Ortho The physical therapy evaluations and fall precautions (2) Hyponatremia Is this a current diagnosis for this admission?: Yes Plan: Unclear etiology possible medications but will get the urine osmolality serum osmolality to rule out other etiology we will also get the CT of the chest Continues to IV fluid close monitor the patient in the telemetry bed repeat the Chem-7 every 6 hours (3) Hypertension Qualifiers: Hypertension type: essential hypertension Qualified Code(s): I10 - Essential (primary) hypertension Is this a current diagnosis for this admission?: Yes Plan: Continues to Diovan (4) Hyperlipidemia Qualifiers: Hyperlipidemia type: other hyperlipidemia Qualified Code(s): E78.4 - Other hyperlipidemia Is this a current diagnosis for this admission?: Yes Plan: Continues to current medication (5) Scoliosis (and kyphoscoliosis), idiopathic Is this a current diagnosis for this admission?: Yes (6) Hypomagnesemia Is this a current diagnosis for this admission?: Yes Plan: Replace the magnesium (7) Asthma Qualifiers: Asthma severity: mild Is this a current diagnosis for this admission?: Yes Plan: Continues to nebulizer treatments and current inhalers (8) Gastroesophageal reflux Qualifiers: Esophagitis presence: without esophagitis Qualified Code(s): K21.9 - Gastro -esophageal reflux disease without esophagitis Is this a current diagnosis for this admission?: Yes Plan: Continues to PPI - Time Time Spent: 30 to 50 Minutes Medications reviewed and adjusted accordingly: Yes Anticipated discharge: Home Within: Other - Inpatient Certification Medical Necessity: Need Close Monitoring Due to Risk of Patient Decompensation, Need For IV Fluids Post Hospital Care: D/C [employer] Documentation - Plan Summary Plan Summary: Admit the patient in a telemetry bed see other MD orders
[2017-11-07] MEDS: VALSARTAN 80 MG TABLET PO SCH (21:16)
[2017-11-07] MEDS: MONTELUKAST SODIUM 10 MG TABLET PO SCH (21:19)
[2017-11-07] MEDS: MAG HYDROX/AL HYDROX/SIMETH SUSP 30 ML UDCUP PO PRN (21:21)
[2017-11-07] MEDS: FLUTICASONE/SALMETEROL DISKUS 250-50 MCG/DOSE IH SCH (22:00)
[2017-11-07] MEDS: OLOPATADINE HCL 0.1% OPH SOLN 5 ML OP SCH (22:00)
[2017-11-07] MEDS: OXYCODONE-ACETAMINOPHEN 5-325 MG TABLET PO PRN (22:22)
[2017-11-07] MEDS: NYSTATIN CREAM 15 GM TP SCH (23:36)
[2017-11-08 00:41] LABS: ANION GAP 10 (5-19); BLOOD UREA NITROGEN 7 mg/dL (7-20); CALCIUM 9.2 mg/dL (8.4-10.2); CARBON DIOXIDE 25 mmol/L (22-30); CHLORIDE 85 mmol/L (98-107); GLUCOSE 103 mg/dL (75-110); POTASSIUM 3.6 mmol/L (3.6-5.0)
[2017-11-08 00:50] LABS: SODIUM 119.7 mmol/L (137-145)
[2017-11-08] MEDS: IPRATROPIUM/ALBUTEROL 0.5-2.5 MG/3 ML AMPUL NEB PRN ×2 (01:28→11:50)
[2017-11-08 06:06] LABS: ABSOLUTE LYMPHOCYTES (AUTO) 1.4 10^3/uL (0.5-4.7); ABSOLUTE MONOCYTES (AUTO) 0.9 10^3/uL (0.1-1.4); ABSOLUTE NEUT (AUTO) 7.3 10^3/uL (1.7-8.2); BASOPHILS % (AUTO) 0.3 % (0-2); EOSINOPHILS % (AUTO) 0.2 % (0-6); LYMPHOCYTES % (AUTO) 14.8 % (13-45); MEAN CORPUSCULAR HEMOGLOBIN 28.8 pg (27.0-33.4); MEAN CORPUSCULAR HGB CONC 35.1 g/dL (32.0-36.0); MEAN CORPUSCULAR VOLUME 82 fl (80-97); MONOCYTES % (AUTO) 9.2 % (3-13); PLATELET COUNT 245 10^3/uL (150-450); RED CELL DISTRIBUTION WIDTH 14.2 % (11.5-14.0); SEGMENTED NEUTROPHILS % (AUTO) 75.5 % (42-78); TOTAL CELLS COUNTED % (AUTO) 100 %; WHITE BLOOD COUNT 9.6 10^3/uL (4.0-10.5)
[2017-11-08] MEDS: FLUTICASONE/SALMETEROL DISKUS 250-50 MCG/DOSE IH SCH ×2 (06:15→17:47)
--- NOTE | 2017-11-08 06:25 | PDOC CONSULTATION ---
Consultation Consult Date: 11/08/17 Consult reason:: Sacral fracture History of Present Illness Admission Date/PCP: 11/07/17 13:12 RUBI AGUIAR MD History of Present Illness: Patient is a 77-year-old female with past medical history significant for lumbar compression fractures who recently fell and sustained an injury resulting in low back pain. She felt that she had exacerbated her previous compression fractures. When she presented to the emergency room in addition to hyponatremia and urinary tract infection the patient had a sacral fracture. Orthopedics is consulted for fracture management. Past Medical History Cardiac Medical History: Reports: Hyperlipidema, Hypertension Denies: Congestive Heart Failure, Coronary Artery Disease, Myocardial Infarction, Pulmonary Embolism Pulmonary Medical History: Reports: Asthma, Bronchitis, Chronic Obstructive Pulmonary Disease (COPD), Pneumonia Neurological Medical History: Denies: Migraine, Seizures GI Medical History: Reports: Gastroesophageal Reflux Disease, Hiatal Hernia Denies: Hepatitis Musculoskeltal Medical History: Reports: Arthritis Psychiatric Medical History: Reports: Depression - on occassion Hematology: Reports: Anemia - WITH LEG SURGERY Denies: Sickle Cell Disease Past Surgical History Past Surgical History: Reports: Appendectomy, Tonsillectomy Denies: Amputation, Hysterectomy, Mastectomy, Pacemaker Social History Information Source: Patient, [facility] Records Lives with: Alone Smoking Status: Never Smoker Frequency of Alcohol Use: None Hx Recreational Drug Use: No Drugs: None Hx Prescription Drug Abuse: No - Advance Directive Resuscitation Status: Full Code Family History Family History: Reviewed & Not Pertinent, DM, Hypertension, Malignancy Parental Family History Reviewed: No Children Family History Reviewed: No Sibling(s) Family History Reviewed.: No Medication/Allergy Home Medications: Albuterol Sulfate [Ventolin 0.083% Neb 2.5 mg/3 ml Ampul] 1 vial NEB BID Albuterol Sulfate [Ventolin Hfa] 2 puff IH Q4 11/07/17 Cholecalciferol (Vitamin D3) [Vitamin D3 2000 unit Tablet] 2,000 unit PO DAILY 11/07/17 Citalopram Hydrobromide [Celexa] 1 tab PO DAILY 11/07/17 Diclofenac Sodium [Voltaren] 4 gm TP QIDP PRN 11/07/17 Fluticasone/Salmeterol [Advair 250-50 Diskus 28 dose] 1 inh IH Q12H 11/07/17 Meloxicam [Mobic] 7.5 mg PO DAILY 11/07/17 Montelukast Sodium [Singulair 10 mg Tablet] 10 mg PO QHS 11/07/17 Nystatin [Mycostatin Cream] 1 applic TP BID 11/07/17 Olopatadine HCl [Patanol 0.1% Oph Soln 5 ml] 1 drop OP BID 11/07/17 Ranitidine HCl [Acid English [employer] Language Instructor] 75 mg PO BIDP PRN 11/07/17 Tramadol HCl [Ultram 50 mg Tablet] 50 mg PO BIDP PRN 11/07/17 Valsartan [Diovan 80 mg Tablet] 80 mg PO Q12 11/07/17 Allergies/Adverse Reactions: latex [Latex] Allergy (Intermediate, Verified 01/06/17 10:11) ITCHING levofloxacin [From Levaquin] Allergy (Unknown, Verified 01/06/17 10:11) aspirin [Aspirin] Adverse Reaction (Mild, Verified 01/06/17 10:11) Thins blood too much Penicillins Adverse Reaction (Mild, Verified 01/06/17 10:11) Yeast infections Review of Systems All systems: as per H Physical Exam Vital Signs: Temp Pulse Resp BP Pulse Ox 36.5 C 76 18 97/44 L 94 11/08/17 03:59 11/08/17 03:59 11/08/17 03:59 11/08/17 03:59 11/08/17 03:59 Intake & Output 11/06/17 11/07/17 11/08/17 06:59 06:59 06:59 Weight 69.2 kg Physical Exam: Patient is an elderly white female lying in hospital bed. She is lying flat on her back. She is quite comfortable alert and conversant. General appearance: PRESENT: no acute distress Head exam: PRESENT: normocephalic Respiratory exam: PRESENT: unlabored Cardiovascular exam: PRESENT: RRR Pulses: PRESENT: +1 pedal pulses bilateral Vascular exam: PRESENT: normal capillary refill GI/Abdominal exam: PRESENT: soft Rectal exam: PRESENT: deferred Extremities exam: PRESENT: other - Passive range of motion about lobe both lower extremities causes some discomfort. Leg lengths are equal. Distal neurovascular examination is intact. Neurological exam: PRESENT: alert, awake, oriented to person, oriented to place , oriented to time, oriented to situation. ABSENT: motor sensory deficit Psychiatric exam: PRESENT: appropriate affect, normal mood. ABSENT: homicidal ideation, suicidal ideation Skin exam: PRESENT: dry, intact, warm. ABSENT: cyanosis, rash Results Laboratory Results: 11/08/17 04:51 11/07/17 11/08/17 11/08/17 18:00 00:10 04:51 WBC 9.6 RBC 4.50 Hgb 13.0 Hct 37.0 MCV 82 MCH 28.8 MCHC 35.1 RDW 14.2 H Plt Count 245 Seg Neutrophils % 75.5 Lymphocytes % 14.8 Monocytes % 9.2 Eosinophils % 0.2 Basophils % 0.3 Absolute Neutrophils 7.3 Absolute Lymphocytes 1.4 Absolute Monocytes 0.9 Absolute Eosinophils 0.0 Absolute Basophils 0.0 Sodium 116.8 L* 119.7 L* Potassium 3.6 3.6 Chloride 87 L 85 L Carbon Dioxide 21 L 25 Anion Gap 9 10 BUN 8 7 Creatinine 0.56 0.62 Est GFR ( Amer) > 60 > 60 Est GFR (Non-Af Amer) > 60 > 60 Glucose 127 H 103 Calcium 8.8 9.2 Impressions: Chest CT 11/07/17 00:00 IMPRESSION: SCATTERED CHRONIC INTERSTITIAL PARENCHYMAL SCARRING. NO ACUTE FINDING ON NON-CONTRASTED CHEST CT. Lumbar Spine X-Ray 11/07/17 10:10 IMPRESSION: There are mild compression deformities involving the L2 and L3 vertebra unchanged from the previous CT scan. No other vertebral compressions are identified. Other findings as noted Sacrum and Coccyx X-Ray 11/07/17 10:10 IMPRESSION: Possible nondisplaced fracture lower sacrum. Status: Imported from PACS Assessment & Plan - Diagnosis (1) Sacral fracture, closed Qualifiers: Encounter type: initial encounter Zone of sacrum fracture: unspecified portion of sacrum Qualified Code(s): S32.10XA - Unspecified fracture of sacrum , initial encounter for closed fracture Is this a current diagnosis for this admission?: Yes Plan: 77-year-old white female with a past medical history significant for lumbar compression fractures now with a fall and has a lower sacral fracture. Unfortunately there is no therapeutic intervention for this fracture. The patient can be mobilized with physical therapy on a activity as tolerated basis with appropriate analgesics. I anticipate she will have significant discomfort for about 3 weeks and then declining discomfort for additional 3 weeks. I be glad to see her back as an outpatient if appropriate. - Time Time Spent: 50 to 70 Minutes Anticipated discharge: SNF Within: Other
[2017-11-08 06:35] LABS: ALANINE AMINOTRANSFERASE 26 U/L (9-52); ALBUMIN 3.6 g/dL (3.5-5.0); ALKALINE PHOSPHATASE 52 U/L (38-126); ANION GAP 10 (5-19); ASPARTATE AMINO TRANSFERASE 34 U/L (14-36); BILIRUBIN,DIRECT 0.2 mg/dL (0.0-0.4); BILIRUBIN,TOTAL 0.7 mg/dL (0.2-1.3); BLOOD UREA NITROGEN 8 mg/dL (7-20); CALCIUM 8.9 mg/dL (8.4-10.2); CARBON DIOXIDE 23 mmol/L (22-30); CHLORIDE 88 mmol/L (98-107); GLUCOSE 97 mg/dL (75-110); POTASSIUM 3.2 mmol/L (3.6-5.0); SODIUM 121.1 mmol/L (137-145); TOTAL PROTEIN 5.4 g/dL (6.3-8.2)
[2017-11-08] MEDS ORDERED: POTASSIUM CHLORIDE 10 MEQ TABLET.SA PO ONE (08:05)
--- NOTE | 2017-11-08 08:34 | RADIOLOGY REPORT (SQ) ---
EXAM DESCRIPTION: CT ABD/PELVIS NO ORAL OR IV COMPLETED DATE/TIME: 11/07/2017 8:29 pm REASON FOR STUDY: abd pain COMPARISON: February 2017 TECHNIQUE: CT scan of the abdomen and pelvis performed without intravenous or oral contrast. Images reviewed with lung, soft tissue, and bone windows. Reconstructed coronal and sagittal MPR images revi ewed. All images stored on PACS. All CT scanners at this facility use dose modulation, iterative reconstruction, and/or weight based d osing when appropriate to reduce radiation dose to as low as reasonably achievable (ALARA). [facility]: Dose Right [facility]: CareDose [facility]: Dose Right [facility]: Teradose 4D [facility]: Smart [employer] RADIATION DOSE: CT Rad equipment meets quality standard of care and radiation dose reduction techniq ues were employed. CTDIvol: 10.2 mGy. DLP: 450 mGy-cm.mGy. LIMITATIONS: None. FINDINGS: LOWER CHEST: No significant findings. No nodules or infiltrates. Linear scarring or subse gmental atelectasis is identified in lung bases. Small hiatal hernia is identified. NON-CONTRASTED LIVER, SPLEEN, ADRENALS: Evaluation limited by lack of IV contrast. No identified sign ificant masses. Previously described small left adrenal mass appears stable. PANCREAS: No masses. No peripancreatic inflammatory changes. GALLBLADDER: No identified stones by CT criteria. No inflammatory changes to suggest cholecystitis. RIGHT KIDNEY AND URETER: No suspicious masses. Assessment limited by lack of IV contrast. No signif icant calcifications. No hydronephrosis or hydroureter. LEFT KIDNEY AND URETER: No suspicious masses. Assessment limited by lack of IV contrast. No signifi cant calcifications. No hydronephrosis or hydroureter. AORTA AND RETROPERITONEUM: No aneurysm. No retroperitoneal masses or adenopathy. BOWEL AND PERITONEAL CAVITY: No obvious masses or inflammatory changes. No free fluid. A moderate am ount a gas and fecal material is identified in the colon. APPENDIX: Status post appendectomy PELVIS, BLADDER, AND ABDOMINAL WALL:Enlarged fibroid uterus is identified with multiple uterine calci fications which appears stable. Urine distended bladder is identified. BONES: No obvious acute findings Stable changes from previous study. OTHER: No other significant finding. IMPRESSION: No obvious acute findings. Other findings as noted above COMMENT: Quality ID # [id number]: Final reports with documentation of one or more dose reduction techniques (e.g., Automated exposure control, adjustment of the mA and/or kV according to patient size, use of iterative reconstruction technique) TECHNICAL DOCUMENTATION: JOB ID: [id number] [employer]- All Rights Reserved Reading location - IP/workstation name: [facility] / [email or web address]
[2017-11-08] MEDS: OXYCODONE-ACETAMINOPHEN 5-325 MG TABLET PO PRN (09:54)
[2017-11-08] MEDS: CHOLECALCIFEROL (D3) 1,000 UNIT TABLET PO SCH (09:55)
[2017-11-08] MEDS: OLOPATADINE HCL 0.1% OPH SOLN 5 ML OP SCH ×2 (09:56→17:47)
[2017-11-08] MEDS ORDERED: MELOXICAM 7.5 MG TABLET PO SCH (10:00)
[2017-11-08] MEDS ORDERED: (PENDING PHARMACY ID) (Cholecalciferol (Vitamin D3) [Vitamin D3 2000 Unit Tablet] 2,000 UN PO SCH (10:00)
[2017-11-08] MEDS: ENOXAPARIN SODIUM INJ 40 MG/0.4 ML DISP.SYRIN SUBCUT SCH (10:00)
[2017-11-08] MEDS: MAG HYDROX/AL HYDROX/SIMETH SUSP 30 ML UDCUP PO PRN (10:32)
[2017-11-08] MEDS: VALSARTAN 80 MG TABLET PO SCH ×2 (11:13→22:50)
[2017-11-08] MEDS: FAMOTIDINE 20 MG TABLET PO PRN ×2 (11:14→17:46)
[2017-11-08] MEDS: NYSTATIN CREAM 15 GM TP SCH ×2 (11:15→17:48)
--- NOTE | 2017-11-08 11:35 | PDOC PROGRESS REPORT ---
Subjective Progress Note for:: 11/08/17 Subjective:: Patient is feeling much better Denied any chest pain denied any shortness of breath Patient's denied any headache denied any dizziness Patient seen by this Dr. Cottrell suggested physical therapy Sodium level is 121 Reason For Visit: HYPONATREMIA, COCCY FX Physical Exam Vital Signs: Temp Pulse Resp BP Pulse Ox 98.1 F 75 20 134/56 H 92 11/08/17 07:27 11/08/17 07:27 11/08/17 07:27 11/08/17 07:27 11/08/17 07:27 Intake & Output 11/07/17 11/08/17 11/09/17 06:59 06:59 06:59 Intake Total 300 Balance 300 Weight 69.8 kg General appearance: PRESENT: no acute distress, well-developed, well-nourished Head exam: PRESENT: atraumatic, normocephalic Eye exam: PRESENT: conjunctiva pink, EOMI, PERRLA. ABSENT: scleral icterus Ear exam: PRESENT: normal external ear exam Mouth exam: PRESENT: moist, tongue midline Neck exam: PRESENT: full ROM. ABSENT: carotid bruit, JVD, lymphadenopathy, thyromegaly Respiratory exam: PRESENT: clear to auscultation candelario Cardiovascular exam: PRESENT: RRR. ABSENT: diastolic murmur, rubs, systolic murmur Pulses: PRESENT: normal dorsalis pedis pul, +2 pedal pulses bilateral Vascular exam: PRESENT: normal capillary refill GI/Abdominal exam: PRESENT: normal bowel sounds, soft. ABSENT: distended, guarding, mass, organolmegaly, rebound, tenderness Rectal exam: PRESENT: deferred Extremities exam: ABSENT: pedal edema Musculoskeletal exam: PRESENT: ambulatory Neurological exam: PRESENT: alert, awake, oriented to person, oriented to place , oriented to time, oriented to situation, CN II-XII grossly intact. ABSENT: motor sensory deficit Psychiatric exam: PRESENT: appropriate affect, normal mood. ABSENT: homicidal ideation, suicidal ideation Skin exam: PRESENT: dry, intact, warm. ABSENT: cyanosis, rash Results Laboratory Results: 11/08/17 04:51 11/08/17 04:51 11/07/17 11/08/17 11/08/17 18:00 00:10 04:51 WBC 9.6 RBC 4.50 Hgb 13.0 Hct 37.0 MCV 82 MCH 28.8 MCHC 35.1 RDW 14.2 H Plt Count 245 Seg Neutrophils % 75.5 Lymphocytes % 14.8 Monocytes % 9.2 Eosinophils % 0.2 Basophils % 0.3 Absolute Neutrophils 7.3 Absolute Lymphocytes 1.4 Absolute Monocytes 0.9 Absolute Eosinophils 0.0 Absolute Basophils 0.0 Sodium 116.8 L* 119.7 L* Potassium 3.6 3.6 Chloride 87 L 85 L Carbon Dioxide 21 L 25 Anion Gap 9 10 BUN 8 7 Creatinine 0.56 0.62 Est GFR ( Amer) > 60 > 60 Est GFR (Non-Af Amer) > 60 > 60 Glucose 127 H 103 Calcium 8.8 9.2 Magnesium Total Bilirubin AST ALT Alkaline Phosphatase Total Protein Albumin 11/08/17 04:51 WBC RBC Hgb Hct MCV MCH MCHC RDW Plt Count Seg Neutrophils % Lymphocytes % Monocytes % Eosinophils % Basophils % Absolute Neutrophils Absolute Lymphocytes Absolute Monocytes Absolute Eosinophils Absolute Basophils Sodium 121.1 L Potassium 3.2 L Chloride 88 L Carbon Dioxide 23 Anion Gap 10 BUN 8 Creatinine 0.61 Est GFR ( Amer) > 60 Est GFR (Non-Af Amer) > 60 Glucose 97 Calcium 8.9 Magnesium 2.1 Total Bilirubin 0.7 AST 34 ALT 26 Alkaline Phosphatase 52 Total Protein 5.4 L Albumin 3.6 Impressions: Abdomen/Pelvis CT 11/07/17 00:00 IMPRESSION: No obvious acute findings. Other findings as noted above Chest CT 11/07/17 00:00 IMPRESSION: SCATTERED CHRONIC INTERSTITIAL PARENCHYMAL SCARRING. NO ACUTE FINDING ON NON-CONTRASTED CHEST CT. Lumbar Spine X-Ray 11/07/17 10:10 IMPRESSION: There are mild compression deformities involving the L2 and L3 vertebra unchanged from the previous CT scan. No other vertebral compressions are identified. Other findings as noted Sacrum and Coccyx X-Ray 11/07/17 10:10 IMPRESSION: Possible nondisplaced fracture lower sacrum. Assessment & Plan - Diagnosis (1) Fall Qualifiers: Encounter type: initial encounter Qualified Code(s): W19.XXXA - Unspecified fall, initial encounter Is this a current diagnosis for this admission?: Yes Plan: Status post sacral fracture is currently a conservative management but also (2) Hyponatremia Is this a current diagnosis for this admission?: Yes Plan: cont IV fluid currently improving continues to monitor Chem-7 every 6 hours (3) Hypertension Qualifiers: Hypertension type: essential hypertension Qualified Code(s): I10 - Essential (primary) hypertension Is this a current diagnosis for this admission?: Yes Plan: Continues to Diovan (4) Hyperlipidemia Qualifiers: Hyperlipidemia type: other hyperlipidemia Qualified Code(s): E78.4 - Other hyperlipidemia Is this a current diagnosis for this admission?: Yes Plan: Continues to current medication (5) Scoliosis (and kyphoscoliosis), idiopathic Is this a current diagnosis for this admission?: Yes (6) Hypomagnesemia Is this a current diagnosis for this admission?: Yes Plan: Replace the magnesium (7) Asthma Qualifiers: Asthma severity: mild Is this a current diagnosis for this admission?: Yes Plan: Continues to nebulizer treatments and current inhalers (8) Gastroesophageal reflux Qualifiers: Esophagitis presence: without esophagitis Qualified Code(s): K21.9 - Gastro -esophageal reflux disease without esophagitis Is this a current diagnosis for this admission?: Yes Plan: Continues to PPI - Time Time Spent with patient: 15-24 minutes Medications reviewed and adjusted accordingly: Yes Anticipated discharge: Home Within: Other - Inpatient Certification Medical Necessity: Need Close Monitoring Due to Risk of Patient Decompensation, Need For IV Fluids Post Hospital Care: D/C Collection Clerk Documentation - Plan Summary Plan Summary: Continues to current medications get the physical therapy
[2017-11-08 12:57] LABS: ANION GAP 9 (5-19); BLOOD UREA NITROGEN 9 mg/dL (7-20); CARBON DIOXIDE 23 mmol/L (22-30); CHLORIDE 90 mmol/L (98-107); GLUCOSE 107 mg/dL (75-110); POTASSIUM 3.9 mmol/L (3.6-5.0); SODIUM 121.7 mmol/L (137-145)
[2017-11-08] MEDS: MELOXICAM 7.5 MG TABLET PO SCH (14:38)
[2017-11-08 18:39] LABS: ANION GAP 6 (5-19); BLOOD UREA NITROGEN 9 mg/dL (7-20); CALCIUM 9.3 mg/dL (8.4-10.2); CARBON DIOXIDE 26 mmol/L (22-30); CHLORIDE 90 mmol/L (98-107); GLUCOSE 110 mg/dL (75-110); POTASSIUM 4.3 mmol/L (3.6-5.0); SODIUM 122.1 mmol/L (137-145)
[2017-11-08] MEDS: MONTELUKAST SODIUM 10 MG TABLET PO SCH (22:50)
[2017-11-09] MEDS: IPRATROPIUM/ALBUTEROL 0.5-2.5 MG/3 ML AMPUL NEB PRN (00:29)
[2017-11-09 05:05] LABS: ABSOLUTE MONOCYTES (AUTO) 0.7 10^3/uL (0.1-1.4); ABSOLUTE NEUT (AUTO) 5.8 10^3/uL (1.7-8.2); BASOPHILS % (AUTO) 0.3 % (0-2); EOSINOPHILS % (AUTO) 0.4 % (0-6); HEMATOCRIT 37.6 % (36.0-47.0); HEMOGLOBIN 12.9 g/dL (12.0-15.5); LYMPHOCYTES % (AUTO) 13.3 % (13-45); MEAN CORPUSCULAR HEMOGLOBIN 28.6 pg (27.0-33.4); MEAN CORPUSCULAR HGB CONC 34.3 g/dL (32.0-36.0); MEAN CORPUSCULAR VOLUME 84 fl (80-97); MONOCYTES % (AUTO) 9.8 % (3-13); PLATELET COUNT 238 10^3/uL (150-450); RED CELL DISTRIBUTION WIDTH 14.3 % (11.5-14.0); SEGMENTED NEUTROPHILS % (AUTO) 76.2 % (42-78); TOTAL CELLS COUNTED % (AUTO) 100 %; WHITE BLOOD COUNT 7.6 10^3/uL (4.0-10.5)
[2017-11-09 05:30] LABS: BLOOD UREA NITROGEN 7 mg/dL (7-20); CALCIUM 8.7 mg/dL (8.4-10.2); CHLORIDE 99 mmol/L (98-107); GLUCOSE 116 mg/dL (75-110); POTASSIUM 3.7 mmol/L (3.6-5.0)
[2017-11-09 05:36] LABS: CARBON DIOXIDE 24 mmol/L (22-30); SODIUM 125.7 mmol/L (137-145)
[2017-11-09 05:42] LABS: ANION GAP 4 (5-19)
[2017-11-09] MEDS: FLUTICASONE/SALMETEROL DISKUS 250-50 MCG/DOSE IH SCH ×2 (06:47→18:04)
[2017-11-09] MEDS: OXYCODONE-ACETAMINOPHEN 5-325 MG TABLET PO PRN ×2 (07:54→13:37)
[2017-11-09] MEDS: ENOXAPARIN SODIUM INJ 40 MG/0.4 ML DISP.SYRIN SUBCUT SCH (09:36)
[2017-11-09] MEDS: VALSARTAN 80 MG TABLET PO SCH ×2 (09:36→22:23)
[2017-11-09] MEDS: FAMOTIDINE 20 MG TABLET PO PRN ×2 (09:37→18:03)
[2017-11-09] MEDS: CHOLECALCIFEROL (D3) 1,000 UNIT TABLET PO SCH (09:37)
[2017-11-09] MEDS: OLOPATADINE HCL 0.1% OPH SOLN 5 ML OP SCH ×2 (09:37→18:03)
[2017-11-09] MEDS: NYSTATIN CREAM 15 GM TP SCH ×2 (09:38→18:05)
[2017-11-09] MEDS ORDERED: NORMAL SALINE 1000 ML 1,000 ML IV PRN (10:47)
--- NOTE | 2017-11-09 11:38 | PDOC PROGRESS REPORT ---
Subjective Progress Note for:: 11/09/17 Subjective:: Patient is currently doing fair Patient's denied any chest pain denied any shortness of the breath Episode of the asthma attack last night but currently all resolved Level is 125 Reason For Visit: HYPONATREMIA, COCCY FX Physical Exam Vital Signs: Temp Pulse Resp BP Pulse Ox 98.4 F 78 20 175/87 H 97 11/08/17 23:50 11/09/17 07:00 11/09/17 00:30 11/08/17 23:50 11/09/17 00:30 Intake & Output 11/08/17 11/09/17 11/10/17 06:59 06:59 06:59 Intake Total 300 2264 Balance 300 2264 Weight 69.8 kg 71 kg General appearance: PRESENT: no acute distress, well-developed, well-nourished Head exam: PRESENT: atraumatic, normocephalic Eye exam: PRESENT: conjunctiva pink, EOMI, PERRLA. ABSENT: scleral icterus Ear exam: PRESENT: normal external ear exam Mouth exam: PRESENT: moist, tongue midline Neck exam: PRESENT: full ROM. ABSENT: carotid bruit, JVD, lymphadenopathy, thyromegaly Respiratory exam: PRESENT: clear to auscultation candelario Cardiovascular exam: PRESENT: RRR. ABSENT: diastolic murmur, rubs, systolic murmur Pulses: PRESENT: normal dorsalis pedis pul, +2 pedal pulses bilateral Vascular exam: PRESENT: normal capillary refill GI/Abdominal exam: PRESENT: normal bowel sounds, soft. ABSENT: distended, guarding, mass, organolmegaly, rebound, tenderness Rectal exam: PRESENT: deferred Neurological exam: PRESENT: alert, awake, oriented to person, oriented to place , oriented to time, oriented to situation, CN II-XII grossly intact. ABSENT: motor sensory deficit Psychiatric exam: PRESENT: appropriate affect, normal mood. ABSENT: homicidal ideation, suicidal ideation Skin exam: PRESENT: dry, intact, warm. ABSENT: cyanosis, rash Results Laboratory Results: 11/09/17 04:12 11/09/17 04:15 11/08/17 11/08/17 11/09/17 12:17 18:10 04:12 WBC 7.6 RBC 4.50 Hgb 12.9 Hct 37.6 MCV 84 MCH 28.6 MCHC 34.3 RDW 14.3 H Plt Count 238 Seg Neutrophils % 76.2 Lymphocytes % 13.3 Monocytes % 9.8 Eosinophils % 0.4 Basophils % 0.3 Absolute Neutrophils 5.8 Absolute Lymphocytes 1.0 Absolute Monocytes 0.7 Absolute Eosinophils 0.0 Absolute Basophils 0.0 Sodium 121.7 L 122.1 L Potassium 3.9 4.3 Chloride 90 L 90 L Carbon Dioxide 23 26 Anion Gap 9 6 BUN 9 9 Creatinine 0.59 0.66 Est GFR ( Amer) > 60 > 60 Est GFR (Non-Af Amer) > 60 > 60 Glucose 107 110 Calcium 9.0 9.3 Magnesium 11/09/17 04:15 WBC RBC Hgb Hct MCV MCH MCHC RDW Plt Count Seg Neutrophils % Lymphocytes % Monocytes % Eosinophils % Basophils % Absolute Neutrophils Absolute Lymphocytes Absolute Monocytes Absolute Eosinophils Absolute Basophils Sodium 125.7 L Potassium 3.7 Chloride 99 Carbon Dioxide 24 Anion Gap 4 L BUN 7 Creatinine 0.56 Est GFR ( Amer) > 60 Est GFR (Non-Af Amer) > 60 Glucose 116 H Calcium 8.7 Magnesium 2.1 Impressions: Abdomen/Pelvis CT 11/07/17 00:00 IMPRESSION: No obvious acute findings. Other findings as noted above Chest CT 11/07/17 00:00 IMPRESSION: SCATTERED CHRONIC INTERSTITIAL PARENCHYMAL SCARRING. NO ACUTE FINDING ON NON-CONTRASTED CHEST CT. Lumbar Spine X-Ray 11/07/17 10:10 IMPRESSION: There are mild compression deformities involving the L2 and L3 vertebra unchanged from the previous CT scan. No other vertebral compressions are identified. Other findings as noted Sacrum and Coccyx X-Ray 11/07/17 10:10 IMPRESSION: Possible nondisplaced fracture lower sacrum. Assessment & Plan - Diagnosis (1) Fall Qualifiers: Encounter type: initial encounter Qualified Code(s): W19.XXXA - Unspecified fall, initial encounter Is this a current diagnosis for this admission?: Yes Plan: Status post sacral fracture is currently a conservative management but also (2) Hyponatremia Is this a current diagnosis for this admission?: Yes Plan: Currently doing well fluid restrictions (3) Hypertension Qualifiers: Hypertension type: essential hypertension Qualified Code(s): I10 - Essential (primary) hypertension Is this a current diagnosis for this admission?: Yes Plan: Continues to Ruthy (4) Hyperlipidemia Qualifiers: Hyperlipidemia type: other hyperlipidemia Qualified Code(s): E78.4 - Other hyperlipidemia Is this a current diagnosis for this admission?: Yes Plan: Continues to current medication (5) Scoliosis (and kyphoscoliosis), idiopathic Is this a current diagnosis for this admission?: Yes (6) Hypomagnesemia Is this a current diagnosis for this admission?: Yes Plan: Replace the magnesium (7) Asthma Qualifiers: Asthma severity: mild Is this a current diagnosis for this admission?: Yes Plan: Continues to nebulizer treatments and current inhalers (8) Gastroesophageal reflux Qualifiers: Esophagitis presence: without esophagitis Qualified Code(s): K21.9 - Gastro -esophageal reflux disease without esophagitis Is this a current diagnosis for this admission?: Yes Plan: Continues to PPI - Time Time Spent with patient: 15-24 minutes Medications reviewed and adjusted accordingly: Yes Anticipated discharge: Other Within: Other - Inpatient Certification Medical Necessity: Need Close Monitoring Due to Risk of Patient Decompensation Post Hospital Care: D/C Collection Advisor Documentation - Plan Summary Plan Summary: Continues to current medication
[2017-11-09] MEDS: MELOXICAM 7.5 MG TABLET PO SCH (13:37)
[2017-11-09] MEDS: DOCUSATE SODIUM 100 MG CAPSULE PO SCH (18:03)
[2017-11-09] MEDS: MONTELUKAST SODIUM 10 MG TABLET PO SCH (22:23)
[2017-11-10] MEDS: OXYCODONE-ACETAMINOPHEN 5-325 MG TABLET PO PRN ×3 (03:38→22:12)
[2017-11-10 05:48] LABS: ABSOLUTE LYMPHOCYTES (AUTO) 1.1 10^3/uL (0.5-4.7); ABSOLUTE MONOCYTES (AUTO) 0.5 10^3/uL (0.1-1.4); ABSOLUTE NEUT (AUTO) 3.7 10^3/uL (1.7-8.2); BASOPHILS % (AUTO) 0.8 % (0-2); EOSINOPHILS % (AUTO) 0.3 % (0-6); HEMATOCRIT 36.6 % (36.0-47.0); HEMOGLOBIN 12.4 g/dL (12.0-15.5); LYMPHOCYTES % (AUTO) 21.2 % (13-45); MEAN CORPUSCULAR HEMOGLOBIN 28.8 pg (27.0-33.4); MEAN CORPUSCULAR HGB CONC 33.9 g/dL (32.0-36.0); MEAN CORPUSCULAR VOLUME 85 fl (80-97); MONOCYTES % (AUTO) 8.9 % (3-13); PLATELET COUNT 221 10^3/uL (150-450); RED CELL DISTRIBUTION WIDTH 14.3 % (11.5-14.0); SEGMENTED NEUTROPHILS % (AUTO) 68.8 % (42-78); TOTAL CELLS COUNTED % (AUTO) 100 %; WHITE BLOOD COUNT 5.4 10^3/uL (4.0-10.5)
[2017-11-10 06:07] LABS: ANION GAP 8 (5-19); BLOOD UREA NITROGEN 9 mg/dL (7-20); CARBON DIOXIDE 25 mmol/L (22-30); CHLORIDE 100 mmol/L (98-107); GLUCOSE 103 mg/dL (75-110); SODIUM 132.7 mmol/L (137-145)
[2017-11-10 06:08] LABS: POTASSIUM 3.8 mmol/L (3.6-5.0)
[2017-11-10] MEDS: FLUTICASONE/SALMETEROL DISKUS 250-50 MCG/DOSE IH SCH ×2 (06:30→17:49)
--- NOTE | 2017-11-10 10:36 | PDOC PROGRESS REPORT ---
Subjective Progress Note for:: 11/10/17 Subjective:: Patient is currently doing much better Sodium level is 132 Denied any chest pain denied any shortness of the breath Reason For Visit: HYPONATREMIA, COCCY FX Physical Exam Vital Signs: Temp Pulse Resp BP Pulse Ox 98.4 F 65 20 171/72 H 100 11/10/17 08:00 11/10/17 08:00 11/10/17 08:00 11/10/17 08:00 11/10/17 08:30 Intake & Output 11/09/17 11/10/17 11/11/17 06:59 06:59 06:59 Intake Total 2264 2525 Balance 2264 2525 Weight 71 kg 84.4 kg General appearance: PRESENT: no acute distress, well-developed, well-nourished Head exam: PRESENT: atraumatic, normocephalic Eye exam: PRESENT: conjunctiva pink, EOMI, PERRLA. ABSENT: scleral icterus Ear exam: PRESENT: normal external ear exam Mouth exam: PRESENT: moist, tongue midline Neck exam: PRESENT: full ROM. ABSENT: carotid bruit, JVD, lymphadenopathy, thyromegaly Respiratory exam: PRESENT: clear to auscultation candelario Cardiovascular exam: PRESENT: RRR. ABSENT: diastolic murmur, rubs, systolic murmur Pulses: PRESENT: normal dorsalis pedis pul, +2 pedal pulses bilateral Vascular exam: PRESENT: normal capillary refill GI/Abdominal exam: PRESENT: normal bowel sounds, soft. ABSENT: distended, guarding, mass, organolmegaly, rebound, tenderness Rectal exam: PRESENT: deferred Neurological exam: PRESENT: alert, awake, oriented to person, oriented to place , oriented to time, oriented to situation, CN II-XII grossly intact. ABSENT: motor sensory deficit Psychiatric exam: PRESENT: appropriate affect, normal mood. ABSENT: homicidal ideation, suicidal ideation Skin exam: PRESENT: dry, intact, warm. ABSENT: cyanosis, rash Results Laboratory Results: 11/10/17 04:50 11/10/17 04:50 11/09/17 11/10/17 11/10/17 16:15 04:50 04:50 WBC 5.4 RBC 4.30 Hgb 12.4 Hct 36.6 MCV 85 MCH 28.8 MCHC 33.9 RDW 14.3 H Plt Count 221 Seg Neutrophils % 68.8 Lymphocytes % 21.2 Monocytes % 8.9 Eosinophils % 0.3 Basophils % 0.8 Absolute Neutrophils 3.7 Absolute Lymphocytes 1.1 Absolute Monocytes 0.5 Absolute Eosinophils 0.0 Absolute Basophils 0.0 Sodium 128.6 L 132.7 L Potassium 3.8 Chloride 100 Carbon Dioxide 25 Anion Gap 8 BUN 9 Creatinine 0.50 L Est GFR ( Amer) > 60 Est GFR (Non-Af Amer) > 60 Glucose 103 Calcium 9.0 Magnesium 2.0 Impressions: Abdomen/Pelvis CT 11/07/17 00:00 IMPRESSION: No obvious acute findings. Other findings as noted above Chest CT 11/07/17 00:00 IMPRESSION: SCATTERED CHRONIC INTERSTITIAL PARENCHYMAL SCARRING. NO ACUTE FINDING ON NON-CONTRASTED CHEST CT. Lumbar Spine X-Ray 11/07/17 10:10 IMPRESSION: There are mild compression deformities involving the L2 and L3 vertebra unchanged from the previous CT scan. No other vertebral compressions are identified. Other findings as noted Sacrum and Coccyx X-Ray 11/07/17 10:10 IMPRESSION: Possible nondisplaced fracture lower sacrum. Assessment & Plan - Diagnosis (1) Fall Qualifiers: Encounter type: initial encounter Qualified Code(s): W19.XXXA - Unspecified fall, initial encounter Is this a current diagnosis for this admission?: Yes Plan: Status post sacral fracture is currently a conservative management but also (2) Hyponatremia Is this a current diagnosis for this admission?: Yes Plan: All improving (3) Hypertension Qualifiers: Hypertension type: essential hypertension Qualified Code(s): I10 - Essential (primary) hypertension Is this a current diagnosis for this admission?: Yes Plan: Continues to Diovan (4) Hyperlipidemia Qualifiers: Hyperlipidemia type: other hyperlipidemia Qualified Code(s): E78.4 - Other hyperlipidemia Is this a current diagnosis for this admission?: Yes Plan: Continues to current medication (5) Scoliosis (and kyphoscoliosis), idiopathic Is this a current diagnosis for this admission?: Yes (6) Hypomagnesemia Is this a current diagnosis for this admission?: Yes Plan: Replace the magnesium (7) Asthma Qualifiers: Asthma severity: mild Is this a current diagnosis for this admission?: Yes Plan: Continues to nebulizer treatments and current inhalers (8) Gastroesophageal reflux Qualifiers: Esophagitis presence: without esophagitis Qualified Code(s): K21.9 - Gastro -esophageal reflux disease without esophagitis Is this a current diagnosis for this admission?: Yes (9) Sacral fracture, closed Qualifiers: Encounter type: initial encounter Zone of sacrum fracture: unspecified portion of sacrum Qualified Code(s): S32.10XA - Unspecified fracture of sacrum , initial encounter for closed fracture Is this a current diagnosis for this admission?: Yes Plan: Follow with the also conservative management did a physical therapy - Time Time Spent with patient: 15-24 minutes Medications reviewed and adjusted accordingly: Yes Anticipated discharge: Other Within: Other - Inpatient Certification Medical Necessity: Need Close Monitoring Due to Risk of Patient Decompensation Post Hospital Care: D/C Corporate Physical Security Supervisor Documentation - Plan Summary Plan Summary: Continues to current medications continues to physical therapy
[2017-11-10] MEDS: DOCUSATE SODIUM 100 MG CAPSULE PO SCH ×2 (10:59→17:49)
[2017-11-10] MEDS: VALSARTAN 80 MG TABLET PO SCH ×2 (11:00→22:12)
[2017-11-10] MEDS: CHOLECALCIFEROL (D3) 1,000 UNIT TABLET PO SCH (11:01)
[2017-11-10] MEDS: OLOPATADINE HCL 0.1% OPH SOLN 5 ML OP SCH ×2 (11:01→17:49)
[2017-11-10] MEDS: NYSTATIN CREAM 15 GM TP SCH ×2 (11:04→17:49)
[2017-11-10] MEDS: FAMOTIDINE 20 MG TABLET PO PRN ×2 (11:08→17:52)
[2017-11-10] MEDS: ENOXAPARIN SODIUM INJ 40 MG/0.4 ML DISP.SYRIN SUBCUT SCH (11:10)
[2017-11-10] MEDS: MELOXICAM 7.5 MG TABLET PO SCH (13:51)
[2017-11-10] MEDS: MONTELUKAST SODIUM 10 MG TABLET PO SCH (22:12)
[2017-11-11] MEDS: OXYCODONE-ACETAMINOPHEN 5-325 MG TABLET PO PRN ×2 (06:08→12:08)
[2017-11-11] MEDS: FLUTICASONE/SALMETEROL DISKUS 250-50 MCG/DOSE IH SCH (06:08)
[2017-11-11 07:25] LABS: ANION GAP 6 (5-19); BLOOD UREA NITROGEN 8 mg/dL (7-20); CALCIUM 9.3 mg/dL (8.4-10.2); CARBON DIOXIDE 29 mmol/L (22-30); CHLORIDE 99 mmol/L (98-107); GLUCOSE 98 mg/dL (75-110); POTASSIUM 3.6 mmol/L (3.6-5.0); SODIUM 134.2 mmol/L (137-145)
[2017-11-11] MEDS: DOCUSATE SODIUM 100 MG CAPSULE PO SCH (10:35)
[2017-11-11] MEDS: OLOPATADINE HCL 0.1% OPH SOLN 5 ML OP SCH (10:35)
[2017-11-11] MEDS: CHOLECALCIFEROL (D3) 1,000 UNIT TABLET PO SCH (10:35)
[2017-11-11] MEDS: VALSARTAN 80 MG TABLET PO SCH (10:36)
[2017-11-11] MEDS: FAMOTIDINE 20 MG TABLET PO PRN (10:36)
[2017-11-11] MEDS: ENOXAPARIN SODIUM INJ 40 MG/0.4 ML DISP.SYRIN SUBCUT SCH (10:36)
[2017-11-11] MEDS: NYSTATIN CREAM 15 GM TP SCH (10:37)
[2017-11-11 10:53] VITALS: BP 159/70
--- NOTE | 2017-11-11 12:18 | PDOC DISCHARGE SUMMARY ---
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 also cut down the Celexa half dose (3) Hypertension Is this a current diagnosis for this admission?: Yes Summary: Currently well controlled (4) Hyperlipidemia Is this a current diagnosis for this admission?: Yes Summary: Continues to current medication (5) Scoliosis (and kyphoscoliosis), idiopathic Is this a current diagnosis for this admission?: Yes Summary: Currently all stable (6) Hypomagnesemia Is this a current diagnosis for this admission?: Yes Summary: Currently all resolved (7) Asthma Is this a current diagnosis for this admission?: Yes Summary: Currently stable with a continues medications (8) Gastroesophageal reflux Is this a current diagnosis for this admission?: Yes Summary: Continues to PPI (9) Sacral fracture, closed Is this a current diagnosis for this admission?: Yes Summary: Per Dr. Cottrell medical management and physical therapy - Additional Information Resuscitation Status: Full Code Discharge Diet: Regular Discharge Activity: Activity As Tolerated Prescriptions: Cephalexin Monohydrate [Keflex 500 mg Capsule] 500 mg PO BID #10 capsule Oxycodone HCl/Acetaminophen [Percocet 5-325 mg Tablet] 1 tab PO Q12 PRN #10 tablet PRN Reason: Home Medications: Albuterol Sulfate [Ventolin 0.083% Neb 2.5 mg/3 mL Ampul] 1 vial NEB BID Albuterol Sulfate [Ventolin Hfa] 2 puff IH Q4 11/07/17 Cholecalciferol (Vitamin D3) [Vitamin D3 2000 unit Tablet] 2,000 unit PO DAILY 11/07/17 Diclofenac Sodium [Voltaren] 4 gm TP QIDP PRN 11/07/17 Fluticasone/Salmeterol [Advair 250-50 Diskus 28 dose] 1 inh IH Q12H 11/07/17 Meloxicam [Mobic] 7.5 mg PO DAILY 11/07/17 Montelukast Sodium [Singulair 10 mg Tablet] 10 mg PO QHS 11/07/17 Nystatin [Mycostatin Cream 15 gm] 1 applic TP BID 11/07/17 Olopatadine HCl [Patanol 0.1% Oph Soln 5 ml] 1 drop OP BID 11/07/17 Ranitidine HCl [Acid Orthophotography Technician] 75 mg PO BIDP PRN 11/07/17 Tramadol HCl [Ultram 50 mg Tablet] 50 mg PO BIDP PRN 11/07/17 Valsartan [Diovan 80 mg Tablet] 80 mg PO Q12 11/07/17 Cephalexin Monohydrate [Keflex 500 mg Capsule] 500 mg PO BID #10 capsule Citalopram Hydrobromide [Celexa] 1 tab PO DAILY #0 11/11/17 Oxycodone HCl/Acetaminophen [Percocet 5-325 mg Tablet] 1 tab PO Q12 PRN #10 tablet 11/11/17 History of Present Illness History of Present Illness: BHUPINDER NARVAEZ is a 77 year old female This 77-year-old female with a significant history of the scoliosis history of the hypertension hyperlipidemia recently came to the office last week with the urinary tract infections started on the Bactrim patient's recently fall and a complaint of back pain and in the emergency department patient's Harvey Cocyx fracture and patient also have a severe hyponatremia Other than the back problem patient's denied any dizziness no weakness no muscle ache no body ache Patient's repeat sodium was 118 Patients only new med is the Bactrim no other new medications Patient's denied any chest pain denied any shortness of the breath no weight loss And also significant history of the asthma and a history of the acid reflux With the severe hyponatremia and a fall and fracture decided to admit in the hospital for further evaluation and treatments Hospital Course Hospital Course: This is a 77-year-old female basically present in the ER because of the fall and the patient Patient had a sacral fracture and found severe hyponatremia and decided to admit in the hospital Patient's recently Bactrim was started For UTI but other than that patient's denied any other symptoms And was giving theIV fluid and fluid restriction and patient's response very well with the sodium level is [address] Cottrell for the sacral fracture and suggest to start physical therapy Patients walk in the hallway with a walker without any problems Patient's denied any chest pain denied any shortness of the breath Patient's p.o. intake is good Physical Exam Vital Signs: Temp Pulse Resp BP Pulse Ox 98.0 F 64 15 159/70 H 98 11/11/17 10:37 11/11/17 10:37 11/11/17 10:37 11/11/17 10:37 11/11/17 10:37 Intake & Output 11/10/17 11/11/17 11/12/17 06:59 06:59 06:59 Intake Total 2525 2541 Balance 2525 2541 Weight 84.4 kg 82 kg General appearance: PRESENT: no acute distress, well-developed, well-nourished Head exam: PRESENT: atraumatic, normocephalic Eye exam: PRESENT: conjunctiva pink, EOMI, PERRLA. ABSENT: scleral icterus Ear exam: PRESENT: normal external ear exam Mouth exam: PRESENT: moist, tongue midline Neck exam: PRESENT: full ROM. ABSENT: carotid bruit, JVD, lymphadenopathy, thyromegaly Respiratory exam: PRESENT: clear to auscultation candelario Cardiovascular exam: PRESENT: RRR. ABSENT: diastolic murmur, rubs, systolic murmur Pulses: PRESENT: normal dorsalis pedis pul, +2 pedal pulses bilateral Vascular exam: PRESENT: normal capillary refill GI/Abdominal exam: PRESENT: normal bowel sounds, soft. ABSENT: distended, guarding, mass, organolmegaly, rebound, tenderness Rectal exam: PRESENT: deferred Extremities exam: ABSENT: pedal edema Musculoskeletal exam: PRESENT: ambulatory Neurological exam: PRESENT: alert, awake, oriented to person, oriented to place , oriented to time, oriented to situation, CN II-XII grossly intact. ABSENT: motor sensory deficit Psychiatric exam: PRESENT: appropriate affect, normal mood. ABSENT: homicidal ideation, suicidal ideation Skin exam: PRESENT: dry, intact, warm. ABSENT: cyanosis, rash Results Laboratory Results: 11/10/17 04:50 11/11/17 06:46 11/11/17 06:46 Sodium 134.2 L Potassium 3.6 Chloride 99 Carbon Dioxide 29 Anion Gap 6 BUN 8 Creatinine 0.54 Est GFR ( Amer) > 60 Est GFR (Non-Af Amer) > 60 Glucose 98 Calcium 9.3 Impressions: Abdomen/Pelvis CT 11/07/17 00:00 IMPRESSION: No obvious acute findings. Other findings as noted above Chest CT 11/07/17 00:00 IMPRESSION: SCATTERED CHRONIC INTERSTITIAL PARENCHYMAL SCARRING. NO ACUTE FINDING ON NON-CONTRASTED CHEST CT. Lumbar Spine X-Ray 11/07/17 10:10 IMPRESSION: There are mild compression deformities involving the L2 and L3 vertebra unchanged from the previous CT scan. No other vertebral compressions are identified. Other findings as noted Sacrum and Coccyx X-Ray 11/07/17 10:10 IMPRESSION: Possible nondisplaced fracture lower sacrum. Qualifiers - * PATEINT BEING DISCHARGED WITH ANY OF THE FOLLOWING DIAGNOSIS?: No VTE patient discharged on overlapping Therapy?: Yes Plan Time Spent: Greater than 30 Minutes - Continues to current medication as able following office 1 week repeat the Chem-7 and follow with ortho
[2017-11-11] MEDS: MELOXICAM 7.5 MG TABLET PO SCH (14:10)
== END 2017-11-11 15:05 | disposition home health service (06) | DRG 552 ==
LOC: ER 08:59 → OBSVTOIN 13:12 → EH 13:12 → 4S 17:35
PROVIDERS: ADMIT Family Medicine; ATTEND Family Medicine
DX: S32.10XA Unspecified fracture of sacrum, initial encounter for closed fracture (principal); E87.1 Hypo-osmolality and hyponatremia; N39.0 Urinary tract infection, site not specified; S32.020D Wedge compression fracture of second lumbar vertebra, subsequent encounter for fracture with routine healing; S32.030D Wedge compression fracture of third lumbar vertebra, subsequent encounter for fracture with routine healing; M54.9 Dorsalgia, unspecified; E83.42 Hypomagnesemia; E78.00 Pure hypercholesterolemia, unspecified; I10 Essential (primary) hypertension; K21.9 Gastro-esophageal reflux disease without esophagitis; M41.9 Scoliosis, unspecified; J45.20 Mild intermittent asthma, uncomplicated; Z60.2 Problems related to living alone; W18.30XA Fall on same level, unspecified, initial encounter; Z91.81 History of falling; Y93.9 Activity, unspecified; Y92.9 Unspecified place or not applicable; Z79.51 Long term (current) use of inhaled steroids; Z79.899 Other long term (current) drug therapy
CPT/HCPCS: 36415; 71250; 72100; 72220; 74176; 80048; 80076; 81001; 83735; 83930; 83935; 84295; 84300; 85025; 87086; 93005; 93010; 94640; 96365; 99285; G8978-GP; G8979-GP; J1650; J3475; J3490; J7030; J7040; J7620

== ENCOUNTER 2017-11-27 17:15 | Emergency (ER) | payer MEDICARE ==
--- NOTE | 2017-11-27 18:36 | ER Document Report ---
HPI - HPI Pain Level: 3 Notes: Patient is a 77-year-old female with recurrent UTIs who presents to the ED complaining of urinary urgency x several months. Patient states that she recently finished to antibiotics for urinary infection with the last being Macrobid that was finished a couple days ago. Patient states that she does have a history of a cystocele. On occasion patient notices some irritation when she urinates. Patient states that she has been drinking fluids today and has felt the urge to urinate, with difficulty voiding. Patient states that she urinated at 5 AM and then again at 1700. Patient states that she did feel like she did urinate in between when she would try to urinate nothing would come out. Patient states that she has otherwise been well and is eating and drinking without any difficulties. She is having normal bowel movements. Denies any headache, fever, neck pain, URI, sore throat, chest pain, palpitations, syncope, cough, shortness of breath, wheeze, dyspnea, abdominal pain, nausea/vomiting/diarrhea, hematuria, back pain, numbness/tingling, saddle anesthesia, muscle paralysis/weakness, or rash. - ROS Systems Reviewed and Negative: Yes All other systems reviewed and negative - REPRODUCTIVE Reproductive: DENIES: : Past Medical History - Social History Smoking Status: Never Smoker Family History: Reviewed & Not Pertinent, DM, Hypertension, Malignancy - Past Medical History Cardiac Medical History: Reports: Hx Hypercholesterolemia, Hx Hypertension Denies: Hx Congestive Heart Failure, Hx Coronary Artery Disease, Hx Heart Attack, Hx Pulmonary Embolism Pulmonary Medical History: Reports: Hx Asthma, Hx Bronchitis, Hx COPD, Hx Pneumonia Neurological Medical History: Denies: Hx Cerebrovascular Accident, Hx Migraine, Hx Seizures Renal/ Medical History: Denies: Hx Peritoneal Dialysis GI Medical History: Reports: Hx Gastroesophageal Reflux Disease, Hx Hiatal Hernia. Denies: Hx Hepatitis, Hx Ulcer Musculoskeltal Medical History: Reports Hx Arthritis Psychiatric Medical History: Reports: Hx Depression - on occassion Infectious Medical History: Denies: Hx Hepatitis Past Surgical History: Reports: Hx Abdominal Surgery - ODELL, Hx Appendectomy, Hx Orthopedic Surgery, Hx Tonsillectomy. Denies: Hx Hysterectomy, Hx Mastectomy , Hx Open Heart Surgery, Hx Pacemaker - Immunizations Hx Diphtheria, Pertussis, Tetanus Vaccination: No Hx Pneumococcal Vaccination: 07/10/15 Vertical Provider Document - CONSTITUTIONAL Agree With Documented VS: Yes Notes: PHYSICAL EXAMINATION: GENERAL: Well-appearing, well-nourished and in no acute distress. LUNGS: Breath sounds clear to auscultation bilaterally and equal. No wheezes rales or rhonchi. HEART: Regular rate and rhythm without murmurs, rubs, gallops. ABDOMEN: Soft, nontender, nondistended abdomen. No guarding, no rebound. No masses appreciated. Normal bowel sounds present. No CVA tenderness bilaterally. Extremities: No cyanosis, clubbing, or edema b/l. Peripheral pulses 2+. Capillary refill less than 3 seconds. NEUROLOGICAL: Normal speech, normal gait. Normal sensory, motor exams PSYCH: Normal mood, normal affect. SKIN: Warm, Dry, normal turgor, no rashes or lesions noted. - INFECTION CONTROL TRAVEL OUTSIDE OF THE [place] IN LAST 30 DAYS: No Course - Re-evaluation Re-evalutation: 11/27/17 20:20 Patient is an afebrile, well-hydrated, 77-year-old female who presents to the ED with urinary retention, possibly secondary from her cystocele. Vitals are acceptable. PE is otherwise unremarkable. Patient was unable to produce any urine when asked and then when a Gibbs catheter was placed approximately 600- 650cc and is still slowly draining. Patient's urinalysis was unremarkable for any acute pathology. I recommend that she leave the Gibbs in place until she has an evaluation with either her primary care doctor for further evaluation and management and possible consult with UNIT SUPPORT REPRESENTATIVE for pessary placement. Low suspicion for any sepsis, acute abdomen, pyelonephritis, severe dehydration, or other systemic emergent condition at this time. Patient to monitor symptoms closely for any acute changes. Patient is tolerating p.o. without any difficulties. Recheck with your PCM in 2-3 days. Return to the ED with any worsening/concerning symptoms otherwise as reviewed in discharge. Patient is in agreement. - Vital Signs Vital signs: Temp Pulse Resp BP Pulse Ox 97.8 F 89 18 147/83 H 96 11/27/17 17:34 11/27/17 17:34 11/27/17 17:34 11/27/17 17:34 11/27/17 17:34 Discharge - Discharge Clinical Impression: Urinary retention Condition: Stable Disposition: HOME, SELF-CARE Instructions: Urinary Retention ([facility]) Additional Instructions: Maintain fluids (i.e. water) Proper hygenic technique Keep the skin clean Tylenol/ibuprofen as needed Leave gibbs catheter in place until next evaluations (preferably 1-3 days) F/u with your PCM in 1-3 days for a recheck Consider consult with a Urologist/OBGYN for ongoing/worsening symptoms. Return to the ED with any worsening symptoms and/or development of fever, headache, chest pain, palpitations, syncope, shortness of breath, trouble breathing, abdominal pain, n/v/d, blood in stool/urine, loss of control of bowel /bladder, or other worsening symptoms that are concerning to you. Forms: Elevated Blood Pressure Referrals: RUBI AGUIAR MD [Primary Care Provider] - 11/29/17
[2017-11-27 19:54] LABS: APPEARANCE,URINE CLEAR; BILIRUBIN,URINE NEGATIVE (NEGATIVE); COLOR,URINE YELLOW; GLUCOSE, URINE NEGATIVE (NEGATIVE); KETONES,URINE NEGATIVE (NEGATIVE); LEUKOCYTE ESTERASE,URINE NEGATIVE (NEGATIVE); NITRITE,URINE NEGATIVE (NEGATIVE); PROTEIN,URINE NEGATIVE (NEGATIVE); URINE SPECIFIC GRAVITY 1.005; UROBILINOGEN,URINE NEGATIVE mg/dL (<2.0)
[2017-11-27] MEDS ORDERED: OXYCODONE-ACETAMINOPHEN 5-325 MG TABLET PO ONE (19:55)
[2017-11-27 22:20] VITALS: BP 140/78
== END 2017-11-27 22:28 | disposition home or self-care (01) ==
LOC: ER 17:15
DX: R33.9 Retention of urine, unspecified (principal); N81.10 Cystocele, unspecified; R39.15 Urgency of urination; I10 Essential (primary) hypertension; J44.9 Chronic obstructive pulmonary disease, unspecified; Z87.440 Personal history of urinary (tract) infections
CPT/HCPCS: 99284; 51702; 87086; 81001; A9270

== ENCOUNTER 2017-11-28 12:19 | Emergency (ER) | payer MEDICARE ==
--- NOTE | 2017-11-28 13:52 | ER Document Report ---
ED General - General Chief Complaint: Problem with Urinary Catheter Stated Complaint: BLOOD IN URINE Mode of Arrival: Ambulatory Information source: Patient TRAVEL OUTSIDE OF THE [place] IN LAST 30 DAYS: No - HPI Notes: 77-year-old female with a history of recurrent UTIs presents to the emergency room for complaints of hematuria noted in her García catheter after which this was inserted last night due to complaints of urinary retention. Patient states that she has had several bouts of UTIs, she has had issues with having a complete void, feels a constant need to urinate. Patient states she returns because of the hematuria because this was advised on her discharge instructions yesterday. Denies fevers, chills, chest pain,palpitations, shortness of breath, dyspnea, nausea, vomiting, diarrhea, abdominal pain, hematuria,blurred vision, double vision, loss of vision, speech changes, LH, dizziness, syncope, headaches, wheezing, ST, URI, neck pain, weakness, bowel or bladder dysfunction , saddle anesthesia, numbness or tingling in bilateral upper or lower extremities equally, muscle paralysis, weakness in bilateral upper or lower extremities equally or rash. Denies IV drug use. - Related Data Allergies/Adverse Reactions: latex [Latex] Allergy (Intermediate, Verified 11/28/17 12:24) ITCHING levofloxacin [From Levaquin] Allergy (Unknown, Verified 11/28/17 12:24) aspirin [Aspirin] Adverse Reaction (Mild, Verified 11/28/17 12:24) Thins blood too much Penicillins Adverse Reaction (Mild, Verified 11/28/17 12:24) Yeast infections ibuprofen [From Motrin] Adverse Reaction (Verified 11/28/17 12:24) Past Medical History - General Information source: Patient - Social History Smoking Status: Unknown if Ever Smoked Family History: Reviewed & Not Pertinent, DM, Hypertension, Malignancy - Past Medical History Cardiac Medical History: Reports: Hx Hypercholesterolemia, Hx Hypertension Denies: Hx Congestive Heart Failure, Hx Coronary Artery Disease, Hx Heart Attack, Hx Pulmonary Embolism Pulmonary Medical History: Reports: Hx Asthma, Hx Bronchitis, Hx COPD, Hx Pneumonia Neurological Medical History: Denies: Hx Cerebrovascular Accident, Hx Migraine, Hx Seizures Renal/ Medical History: Denies: Hx Peritoneal Dialysis GI Medical History: Reports: Hx Gastroesophageal Reflux Disease, Hx Hiatal Hernia. Denies: Hx Hepatitis, Hx Ulcer Musculoskeltal Medical History: Reports Hx Arthritis Psychiatric Medical History: Reports: Hx Depression - on occassion Infectious Medical History: Denies: Hx Hepatitis Past Surgical History: Reports: Hx Abdominal Surgery - ODELL, Hx Appendectomy, Hx Orthopedic Surgery, Hx Tonsillectomy. Denies: Hx Hysterectomy, Hx Mastectomy , Hx Open Heart Surgery, Hx Pacemaker - Immunizations Hx Diphtheria, Pertussis, Tetanus Vaccination: No Hx Pneumococcal Vaccination: 07/10/15 Review of Systems - Review of Systems Notes: REVIEW OF SYSTEMS: CONSTITUTIONAL : Denies fever, chills, or sweats. Denies recent illness. EENT: Denies eye, ear, throat, or mouth pain or symptoms. Denies nasal or sinus congestion or discharge. Denies throat, tongue, or mouth swelling or difficulty swallowing. CARDIOVASCULAR: Denies chest pain. Denies palpitations or racing or irregular heart beat. Denies ankle edema. RESPIRATORY: Denies cough, cold, or chest congestion. Denies shortness of breath, difficulty breathing, or wheezing. GASTROINTESTINAL: Denies abdominal pain or distention. Denies nausea, vomiting , or diarrhea. Denies blood in vomitus, stools, or per rectum. Denies black, tarry stools. Denies constipation. GENITOURINARY: Superpubic tenderness. denies difficulty urinating, painful urination, burning, frequency, blood in urine, or discharge. FEMALE GENITOURINARY: +hematuria. Denies vaginal bleeding, heavy or abnormal periods, irregular periods. Denies vaginal discharge or odor. MUSCULOSKELETAL: Denies back or neck pain or stiffness. Denies joint pain or swelling. SKIN: Denies rash, lesions or sores. HEMATOLOGIC : Denies easy bruising or bleeding. LYMPHATIC: Denies swollen, enlarged glands. NEUROLOGICAL: Denies confusion or altered mental status. Denies passing out or loss of consciousness. Denies dizziness or lightheadedness. Denies headache. Denies weakness or paralysis or loss of use of either side. Denies problems with gait or speech. Denies sensory loss, numbness, or tingling. Denies seizures. PSYCHIATRIC: Denies anxiety or stress. Denies depression, suicidal ideation, or homicidal ideation. ALL OTHER SYSTEMS REVIEWED AND NEGATIVE. PHYSICAL EXAMINATION: GENERAL: Well-appearing, well-nourished and in no acute distress. HEAD: Atraumatic, normocephalic. EYES: Pupils equal round and reactive to light, extraocular movements intact, conjunctiva are normal. ENT: Nares patent, oropharynx clear without exudates. Moist mucous membranes. NECK: Normal range of motion, supple without lymphadenopathy LUNGS: Breath sounds clear to auscultation bilaterally and equal. No wheezes rales or rhonchi. HEART: Regular rate and rhythm without murmurs ABDOMEN: Soft, nontender, nondistended abdomen except for suprapubic tenderness on palpation. No rebound no guarding, no rebound. No masses appreciated. CVA tenderness bilaterally bowel sounds appreciated in all quadrants. Female : deferred Musculoskeletal: Normal range of motion, no pitting or edema. No cyanosis. NEUROLOGICAL: Cranial nerves grossly intact. Normal speech, normal gait. Normal sensory, motor exams PSYCH: Normal mood, normal affect. SKIN: Warm, Dry, normal turgor, no rashes or lesions noted. Dictation was performed using [employer] voice recognition software Physical Exam - Vital signs Vitals: Temp Pulse Resp BP Pulse Ox 97.9 F 77 16 153/81 H 94 11/28/17 12:43 11/28/17 12:43 11/28/17 12:43 11/28/17 12:43 11/28/17 12:43 Course - Re-evaluation Re-evalutation: 11/28/17 15:54 77-year-old female presents today with complaints of hematuria, patient does not fact have a UTI. Patient is afebrile, presents to the ER because she saw hematuria in her García catheter. García catheter was placed last night due to urinary retention, which is likely secondary to cystocele. Patient is not in any distress. Vitals are stable. Patient reports that she will not be able to get her antibiotic tonight or tomorrow morning but will be able to go out midmorning because unable be able to drive her. Patient does not drive and is unable to walk for distances due to her age. Discussed with patient that she needs to follow-up with urologist or FIREWALL ENGINEER for possible pessary placement. Discussed with patient to take antibiotic with food. Take Pyridium as needed for urinary symptoms. Patient has low suspicion for pyelonephritis, dehydration , sepsis or acute abdomen. Questions or concerns answered by this provider. Patient verbalized understanding of this plan of care and agree with plan of care. Patient was discharged home. After performing a Medical Screening Examination, I estimate there is LOW risk for EXPANDING OR RUPTURED ABDOMINAL AORTIC ANEURYSM, CAUDA EQUINA SYNDROME, EPIDURAL MASS ABSCESS OR LESION(S), OSTEOMYELITIS,PERSONAL HISTORY OF CANCER, IMMUNOSUPPERSSSION, HISTORY OF IV DRUG USE, FRACTURE, CORD COMPERSSION, CANCER, RETROPERITONEAL BLEED, SPINAL EPIDURAL HEMATOMA, or HERNIATED DISK CAUSING SEVERE SPINAL STENOSIS, thus I consider the discharge disposition reasonable. I have reevaluated this patient multiple times and no significant life threatening changes are noted. The patient and I have discussed the diagnosis and risks, and we agree with discharging home and close follow-up. We also discussed returning to the Emergency Department immediately if new or worsening symptoms occur with the understanding that symptoms and presentations can change. We have discussed the symptoms which are most concerning (e.g., saddle anesthesia, urinary or bowel incontinence or retention, changing or worsening pain) that necessitate immediate return. - Vital Signs Vital signs: Temp Pulse Resp BP Pulse Ox 97.9 F 77 16 153/81 H 94 11/28/17 12:43 11/28/17 12:43 11/28/17 12:43 11/28/17 12:43 11/28/17 12:43 - Laboratory Laboratory results interpreted by me: 11/28/17 13:25 Urine Protein 100 H Urine Blood LARGE H Ur Leukocyte Esterase LARGE H Discharge - Discharge Clinical Impression: UTI (urinary tract infection) Qualifiers: Urinary tract infection type: catheter-associated UTI Indwelling urinary catheter type: indwelling urethral catheter Encounter type: initial encounter Qualified Code(s): T83.511A - Infection and inflammatory reaction due to indwelling urethral catheter, initial encounter; N39.0 - Urinary tract infection , site not specified; N39.0 - Urinary tract infection, site not specified Condition: Good Disposition: HOME, SELF-CARE Instructions: Urinary Tract Infection ([facility]), Urinary Anesthetic Agent ([facility]) Additional Instructions: URINARY TRACT INFECTION: Your evaluation indicates that you have a urinary tract infection. This is due to germs growing in the bladder. This is a common problem. This infection usually responds quickly to antibiotics. Your antibiotic should be taken exactly as prescribed. Drink plenty of fluids -- three to four quarts a day. Occasionally, a bladder anesthetic will be prescribed to help stop the feeling of urgency until the antibiotic has a chance to clear the infection. This may cause your urine to be dark orange. Certain urine infections require a culture. If the doctor obtained a culture, the results will be back in two days. You should call to see if a change in treatment is needed. A repeat urinalysis after you finish treatment is often recommended. The physician will let you know if further testing is required. Call the doctor if you develop fever, chills, flank pain, inability to urinate, or blood in the urine. ANTIBIOTIC THERAPY: You have been given an antibiotic prescription. It's important that you take all the medication, unless instructed otherwise by your physician. Failure to complete the entire course can result in relapse of your condition. Common side effects of antibiotics include nausea, intestinal cramping, or diarrhea. Women may develop vaginal yeast infections, and babies can get yeast (thrush) in the mouth following the use of antibiotics. Contact your physician if you develop significant side effects from this medication. Allergy to this antibiotic can result in hives, wheezing, faintness, or itching. If symptoms of allergy occur, stop the medication and call the doctor. CIPROFLOXACIN: You have been given an antibacterial agent, ciprofloxacin (Cipro). This medicine is not related to the penicillins, sulfas, cephalosporins, or tetracyclines. It is often given to patients who are allergic to these drugs. It has been chosen for you either because other drugs are not appropriate, or because of the nature of your problem. Cipro should not be taken with antacids, as these can decrease its effectiveness. It can be taken without regard to meals. CIPRO SHOULD NOT BE TAKEN BY CHILDREN, NURSING WOMEN, OR WOMEN. Although Cipro is usually well-tolerated, common side effects can include nausea and diarrhea. Contact your doctor if you experience any unusual symptoms while on this medication, such as joint pain or swelling, shortness of breath, wheezing, faintness, or hives. URINARY ANESTHETIC AGENT: You have been given a medication (Pyridium) for urinary tract discomfort. This medicine numbs the lining of the bladder and urethra, resulting in less pain, burning, and urgency. You may take it as needed, according to instructions. When the symptoms resolve, you can stop this medication (be sure to continue any other medications the doctor has given you). This medicine turns the urine a dark orange. It may stain underwear. Occasionally, it can cause nausea. Return for evaluation if there are any unexpected effects, such as itching, hives, or shortness of breath. FOLLOW-UP CARE: If you have been referred to a physician for follow-up care, call the physician s office for an appointment as you were instructed or within the next two days. If you experience worsening or a significant change in your symptoms, notify the physician immediately or return to the Emergency Department at any time for re-evaluation. García Catheter Care Tube Position: Keep the catheter connected to the drainage tubing at all times. Avoid pulling on the catheter. Keep the drainage tube taped to the mid- thigh, on top of your leg (not underneath it). Be sure there are no kinks or loops in the tube. Keep the drainage bag below the bladder. When in bed, the drainage bag should hang below the abdomen but should not lie on the floor. The drainage bag has hooks at the top so it can be hung on a chair or bed. Daily Cleaning: Wash your hands with soap and water before and after caring for your catheter. Twice a day, clean yourself where the catheter goes into the urethra. Use a warm, soapy wash cloth to clean around the urethral opening and the first few inches of the catheter. Females should wash from front to back to decrease the risk of infection from fecal material. After washing with soap, rinse the area with water. Do not put powder around the catheter. Apply ointment only if instructed by your doctor or nurse. Follow up if you develop fever or chills, flank or abdominal pain, blood in the urine, or if urine is not draining into the catheter. Follow-up with urologist within 1 day. Follow-up with primary care provider within 1 day. Take Pyridium as directed, take antibiotic with food, first dose of ciprofloxacin was given while you are here, he did not have any reaction to it. He stated you were unsure of what your allergy was to levofloxacin, so we did trial this year since you have a catheter associated urinary tract infection. Return to the emergency room if you experience any but not limited to fever, hematuria, abdominal pain, nausea vomiting, chest pain, shortness of breath, lower back pain etc. He can take [id number] ibuprofen and Tylenol as needed for pain. Return immediately for any new or worsening symptoms. Follow up with primary care provider, call tomorrow to make followup appointment. Referrals: AGUIAR,SWETANG, MD [Primary Care Provider] - Follow up in 3-5 days HELEN KUMAR MD [EMERITUS] - Follow up tomorrow
[2017-11-28 14:03] LABS: APPEARANCE,URINE SLIGHTLY-CLOUDY; BILIRUBIN,URINE NEGATIVE (NEGATIVE); COLOR,URINE RED; GLUCOSE, URINE NEGATIVE (NEGATIVE); KETONES,URINE NEGATIVE (NEGATIVE); LEUKOCYTE ESTERASE,URINE LARGE (NEGATIVE); NITRITE,URINE NEGATIVE (NEGATIVE); PROTEIN,URINE 100 mg/dL (NEGATIVE); URINE SPECIFIC GRAVITY 1.009; UROBILINOGEN,URINE NEGATIVE mg/dL (<2.0)
[2017-11-28] MEDS ORDERED: METOCLOPRAMIDE HCL ORAL SOLN 10 MG/10 ML UDCUP PO ONE (14:15)
[2017-11-28] MEDS ORDERED: LIDOCAINE 2% VISCOUS SOLN 20 ML UDCUP PO ONE (14:15)
[2017-11-28] MEDS ORDERED: CALCIUM CARBONATE 500 MG TAB.CHEW PO ONE (14:15)
[2017-11-28] MEDS ORDERED: MAG HYDROX/AL HYDROX/SIMETH SUSP 30 ML UDCUP PO ONE (14:15)
[2017-11-28] MEDS ORDERED: CIPROFLOXACIN HCL 500 MG TABLET PO ONE ×3 (14:19→16:00)
[2017-11-28 16:21] VITALS: BP 160/98
== END 2017-11-28 16:29 | disposition home or self-care (01) ==
LOC: ER 12:19
DX: T83.511A Infection and inflammatory reaction due to indwelling urethral catheter, initial encounter (principal); N39.0 Urinary tract infection, site not specified; X58.XXXA Exposure to other specified factors, initial encounter; E78.00 Pure hypercholesterolemia, unspecified; I10 Essential (primary) hypertension; J44.9 Chronic obstructive pulmonary disease, unspecified; Z91.040 Latex allergy status; Z88.0 Allergy status to penicillin; Z88.6 Allergy status to analgesic agent; Z87.440 Personal history of urinary (tract) infections
CPT/HCPCS: 99283; 87086; 81001; 87088; 87186; A9270

== ENCOUNTER 2017-12-14 15:57 | Emergency (ER) | payer MEDICARE ==
[2017-12-14 16:06] VITALS: BP 151/82
--- NOTE | 2017-12-14 16:52 | RADIOLOGY REPORT (SQ) ---
EXAM DESCRIPTION: HIP LEFT AP/LATERAL COMPLETED DATE/TIME: 12/14/2017 4:41 pm REASON FOR STUDY: pain COMPARISON: None. NUMBER OF VIEWS: Two views. TECHNIQUE: AP pelvis and additional frog-leg view of the left hip. LIMITATIONS: None. FINDINGS: MINERALIZATION: Normal. LEFT HIP: No fracture or dislocation. No worrisome bone lesions. RIGHT HIP: Intact hardware in the femur. No fracture or dislocation. No worrisome bone lesions. PUBIS AND ISCHIUM: No fracture. PELVIS: No fracture. SACRUM: No fracture or dislocation. No worrisome bone lesions. LOWER LUMBAR SPINE: No fracture or dislocation. No worrisome bone lesions. No significant disc disea se. SOFT TISSUES: No findings. OTHER: No other significant finding. Pelvic calcifications secondary to calcified uterine fibroid. IMPRESSION: NEGATIVE STUDY OF THE LEFT HIP AND PELVIS. INTACT HARDWARE IN THE RIGHT FEMUR. NO RADI OGRAPHIC EVIDENCE OF ACUTE INJURY. TECHNICAL DOCUMENTATION: JOB ID: [id number] [employer]- All Rights Reserved Reading location - IP/workstation name: [email or web address]
--- NOTE | 2017-12-14 17:23 | ER Document Report ---
ED Hip Pain/Injury - General Chief Complaint: Hip Pain Stated Complaint: HIP PAIN Time Seen by Provider: 12/14/17 16:16 Mode of Arrival: Ambulatory Information source: Patient TRAVEL OUTSIDE OF THE [place] IN LAST 30 DAYS: No - HPI Patient complains to provider of: Pain, Hip Notes: Patient is here with complaints of left hip pain. She states that the pain is been present for the last several days. She denies any recent falls or injuries to the hip. She states that the pain is worse when she stands or walks. Seems to be better when she is lying down. She denies any numbness, tingling, weakness to the left leg. She does report that the pain occasionally radiates down the leg. She does have a remote history of fractured coccyx. She denies any back pain currently. She denies any bowel or bladder dysfunction at this time. She is not on blood thinning medications. She denies any fevers. She denies any redness. She is currently already on meloxicam. She denies any other complaints at this time. - Related Data Allergies/Adverse Reactions: latex [Latex] Allergy (Intermediate, Verified 11/28/17 12:24) ITCHING levofloxacin [From Levaquin] Allergy (Unknown, Verified 11/28/17 12:24) aspirin [Aspirin] Adverse Reaction (Mild, Verified 11/28/17 12:24) Thins blood too much Penicillins Adverse Reaction (Mild, Verified 11/28/17 12:24) Yeast infections ibuprofen [From Motrin] Adverse Reaction (Verified 11/28/17 12:24) Past Medical History - Social History Smoking Status: Unknown if Ever Smoked Family History: Reviewed & Not Pertinent, DM, Hypertension, Malignancy - Past Medical History Cardiac Medical History: Reports: Hx Hypercholesterolemia, Hx Hypertension Denies: Hx Congestive Heart Failure, Hx Coronary Artery Disease, Hx Heart Attack, Hx Pulmonary Embolism Pulmonary Medical History: Reports: Hx Asthma, Hx Bronchitis, Hx COPD, Hx Pneumonia Neurological Medical History: Denies: Hx Cerebrovascular Accident, Hx Migraine, Hx Seizures Renal/ Medical History: Denies: Hx Peritoneal Dialysis GI Medical History: Reports: Hx Gastroesophageal Reflux Disease, Hx Hiatal Hernia. Denies: Hx Hepatitis, Hx Ulcer Musculoskeltal Medical History: Reports Hx Arthritis Psychiatric Medical History: Reports: Hx Depression - on occassion Infectious Medical History: Denies: Hx Hepatitis Past Surgical History: Reports: Hx Abdominal Surgery - ODELL, Hx Appendectomy, Hx Orthopedic Surgery, Hx Tonsillectomy. Denies: Hx Hysterectomy, Hx Mastectomy , Hx Open Heart Surgery, Hx Pacemaker - Immunizations Hx Diphtheria, Pertussis, Tetanus Vaccination: No Hx Pneumococcal Vaccination: 07/10/15 Review of Systems - Review of Systems -: Yes All other systems reviewed and negative Physical Exam - Vital signs Vitals: Temp Pulse Resp BP Pulse Ox 97.6 F 82 16 151/82 H 96 12/14/17 16:05 12/14/17 16:05 12/14/17 16:05 12/14/17 16:05 12/14/17 16:05 - Notes Notes: GENERAL: alert, cooperative, nontoxic, no distress. HEAD: normocephalic, atraumatic EYES: conjunctiva pink without discharge, no external redness or swelling. EARS: no external swelling, no external redness NOSE: atraumatic, no external swelling MOUTH/THROAT: mucous membranes moist and pink NECK: soft, supple, full range of motion, no meningismus. CHEST: no distress, lungs clear and equal throughout. No wheezing, rales, rhonchi. CARDIAC: regular rate and rhythm, no murmur, normal capillary refill, normal pulses. BACK: full range of motion, no CVA tenderness. EXTREMITIES: full range of motion of all extremities. No redness, no swelling. Mild tenderness to the lateral aspect and posterior aspect of the left hip. Full range of motion, but there is pain with movement of the left hip. Normal pulse and sensation distally. Compartments are soft. No signs of infection to the joint. NEURO: alert and oriented 3, no focal deficits, full range of motion of all extremities. PYSCH: appropriate mood, affect. Patient is cooperative. SKIN: pink, warm, dry, no rash. Course - Re-evaluation Re-evalutation: 12/14/17 17:20 Patient is nontoxic appearing with stable vitals. She arrives with complaints of left hip pain. She denies any recent falls or injuries. She has some tenderness to the lateral/posterior aspect of the left hip. There is no redness or swelling or signs of infection. X-rays show no acute abnormality per the radiologist. She has a normal neurovascular exam. She has normal reflexes to the lower extremities. Normal sensation. No sign of cauda equina, epidural abscess/bleed, discitis, osteomyelitis, AAA. Most likely the patient' s experiencing some bursitis. She is currently already on meloxicam. I will prescribe her a prescription of Ultram with instructions to follow-up with her orthopedist at the next available appointment. Follow-up sooner for increasing pain, fever, redness, swelling, numbness, tingling, weakness, any further concerns. The patient's emergency department workup and current diagnosis were explained to the patient and or family. Follow-up instructions were provided. Medications if prescribed were discussed. Instructions for when to return to the emergency department including specific worrisome symptoms were discussed with the patient and/or family. The patient is noted to have elevated blood pressure during today's emergency department visit. The patient was informed of this finding. The patient was instructed that this may be related to pre-hypertension and requires further evaluation with a primary care provider. The patient has no hypertensive symptoms at this time. - Vital Signs Vital signs: Temp Pulse Resp BP Pulse Ox 97.6 F 82 16 151/82 H 96 12/14/17 16:05 12/14/17 16:05 12/14/17 16:05 12/14/17 16:05 12/14/17 16:05 - Diagnostic Test Radiology reviewed: Image reviewed, Reports reviewed - Acute findings of the left hip Discharge - Discharge Clinical Impression: Left hip pain Condition: Stable Disposition: HOME, SELF-CARE Instructions: Bursitis ([facility]) Additional Instructions: Take medications as prescribed. Continue taking meloxicam. Follow-up with your orthopedist at the next available appointment. Follow-up sooner for increasing pain, fever, redness, swelling, numbness, tingling, weakness, any further concerns. Your blood pressure was elevated during today's visit. Have this rechecked with your doctor. The medication you were prescribed today may cause drowsiness. Do not drive or operate heavy machinery while taking this medication. Prescriptions: Tramadol HCl 50 mg PO TID PRN #10 tablet PRN Reason: Forms: Elevated Blood Pressure Referrals: RUBI AGUIAR MD [Primary Care Provider] - Follow up as needed MARY YOU MD [ACTIVE STAFF] - Follow up as needed
[2017-12-14] MEDS ORDERED: TRAMADOL HCL 50 MG TABLET PO ONE (18:03)
== END 2017-12-14 18:29 | disposition home or self-care (01) ==
LOC: ER 15:57
DX: M25.552 Pain in left hip (principal); M79.605 Pain in left leg; I10 Essential (primary) hypertension; J44.9 Chronic obstructive pulmonary disease, unspecified
CPT/HCPCS: 99283; 73502; A9270

== ENCOUNTER 2018-03-21 15:50 | Emergency (ER) | payer MEDICARE ==
--- NOTE | 2018-03-21 16:11 | ER Document Report ---
ED Medical Screen (RME) - General Chief Complaint: Productive Cough Stated Complaint: COUGH Time Seen by Provider: 03/21/18 16:07 Mode of Arrival: Ambulatory Information source: Patient TRAVEL OUTSIDE OF THE [place] IN LAST 30 DAYS: No - HPI Patient complains to provider of: productive cough Onset: Yesterday - pt. with c/o recentt "colds" but now has productive cough and is worried about PNA - Related Data Allergies/Adverse Reactions: latex [Latex] Allergy (Intermediate, Verified 03/21/18 15:52) ITCHING levofloxacin [From Levaquin] Allergy (Unknown, Verified 03/21/18 15:52) aspirin [Aspirin] Adverse Reaction (Mild, Verified 03/21/18 15:52) Thins blood too much Penicillins Adverse Reaction (Mild, Verified 03/21/18 15:52) Yeast infections ibuprofen [From Motrin] Adverse Reaction (Verified 03/21/18 15:52) Past Medical History - Social History Chew tobacco use (# tins/day): No Frequency of alcohol use: Occasional Drug Abuse: None - Past Medical History Cardiac Medical History: Reports: Hx Hypercholesterolemia, Hx Hypertension Denies: Hx Congestive Heart Failure, Hx Coronary Artery Disease, Hx Heart Attack, Hx Pulmonary Embolism Pulmonary Medical History: Reports: Hx Asthma, Hx Bronchitis, Hx COPD, Hx Pneumonia Neurological Medical History: Denies: Hx Cerebrovascular Accident, Hx Migraine, Hx Seizures Renal/ Medical History: Denies: Hx Peritoneal Dialysis GI Medical History: Reports: Hx Gastroesophageal Reflux Disease, Hx Hiatal Hernia. Denies: Hx Hepatitis, Hx Ulcer Musculoskeltal Medical History: Reports Hx Arthritis Psychiatric Medical History: Reports: Hx Depression - on occassion Infectious Medical History: Denies: Hx Hepatitis Past Surgical History: Reports: Hx Abdominal Surgery - ODELL, Hx Appendectomy, Hx Orthopedic Surgery, Hx Tonsillectomy. Denies: Hx Hysterectomy, Hx Mastectomy , Hx Open Heart Surgery, Hx Pacemaker - Immunizations Hx Diphtheria, Pertussis, Tetanus Vaccination: No History of Influenza Vaccine for 06/2017 - 11/2017 Season: Yes Influenza Administration Date for 06/2017 - 11/2017 Season: 06/11/17 Physical Exam - Vital signs Vitals: Temp Pulse Resp BP Pulse Ox 97.8 F 87 20 185/87 H 97 03/21/18 15:56 03/21/18 15:56 03/21/18 15:56 03/21/18 15:56 03/21/18 15:56 Course - Vital Signs Vital signs: Temp Pulse Resp BP Pulse Ox 97.8 F 87 20 185/87 H 97 03/21/18 15:56 03/21/18 15:56 03/21/18 15:56 03/21/18 15:56 03/21/18 15:56 Doctor's Discharge - Discharge Referrals: GERTRUDE HANEY MD [Primary Care Provider] - Follow up as needed
[2018-03-21 16:32] LABS: ABSOLUTE BASOPHILS # (AUTO) 0.1 10^3/uL (0.0-0.2); ABSOLUTE LYMPHOCYTES (AUTO) 2.7 10^3/uL (0.5-4.7); ABSOLUTE MONOCYTES (AUTO) 0.6 10^3/uL (0.1-1.4); ABSOLUTE NEUT (AUTO) 4.7 10^3/uL (1.7-8.2); BASOPHILS % (AUTO) 0.7 % (0-2); EOSINOPHILS % (AUTO) 0.6 % (0-6); HEMATOCRIT 42.6 % (36.0-47.0); HEMOGLOBIN 14.8 g/dL (12.0-15.5); LYMPHOCYTES % (AUTO) 33.3 % (13-45); MEAN CORPUSCULAR HEMOGLOBIN 29.4 pg (27.0-33.4); MEAN CORPUSCULAR HGB CONC 34.7 g/dL (32.0-36.0); MEAN CORPUSCULAR VOLUME 85 fl (80-97); MONOCYTES % (AUTO) 7.8 % (3-13); PLATELET COUNT 250 10^3/uL (150-450); RED BLOOD COUNT 5.03 10^6/uL (3.72-5.28); RED CELL DISTRIBUTION WIDTH 13.9 % (11.5-14.0); SEGMENTED NEUTROPHILS % (AUTO) 57.6 % (42-78); TOTAL CELLS COUNTED % (AUTO) 100 %; WHITE BLOOD COUNT 8.1 10^3/uL (4.0-10.5)
--- NOTE | 2018-03-21 16:33 | RADIOLOGY REPORT (SQ) ---
EXAM DESCRIPTION: CHEST 2 VIEWS COMPLETED DATE/TIME: 03/21/2018 4:24 pm REASON FOR STUDY: cough COMPARISON: 06/23/2016 EXAM PARAMETERS: NUMBER OF VIEWS: two views TECHNIQUE: Digital Frontal and Lateral radiographic views of the chest acquired. RADIATION DOSE: NA LIMITATIONS: none FINDINGS: LUNGS AND PLEURA: Question hazy opacification in the right lower lung field. MEDIASTINUM AND HILAR STRUCTURES: Hiatal hernia. HEART AND VASCULAR STRUCTURES: Cardiac silhouette is enlarged. No evidence of failure. BONES: No acute findings. HARDWARE: None in the chest. OTHER: No other significant finding. IMPRESSION: CHF without failure. Hiatal hernia. Cannot exclude very limited right middle lobe pneu monia. TECHNICAL DOCUMENTATION: JOB ID: [id number] [employer]- All Rights Reserved Reading location - IP/workstation name: [email or web address]
--- NOTE | 2018-03-21 16:43 | ER Document Report ---
ED General - General Mode of Arrival: Ambulatory Information source: Patient TRAVEL OUTSIDE OF THE [place] IN LAST 30 DAYS: No <INES BARRIENTOS - Last Filed: 03/21/18 16:53> <BUZZ CANTU - Last Filed: 03/21/18 17:47> - General Chief Complaint: Productive Cough Stated Complaint: COUGH Time Seen by Provider: 03/21/18 16:07 Notes: Patient is a 77 year old female with HTN, arthritis, asthma presents to the emergency department complaining of a productive cough. Patient states that she has had 2 "colds'"within the last week, stating it seemed like the first cold went away and she developed another one 2 days ago. Patient states she presented to the emergency department today because she developed a productive cough with white sputum and was concerned for pneumonia. She also complains of some chest pressure. Patient denies any fevers. (INES BARRIENTOS) - Related Data Allergies/Adverse Reactions: latex [Latex] Allergy (Intermediate, Verified 03/21/18 15:52) ITCHING levofloxacin [From Levaquin] Allergy (Unknown, Verified 03/21/18 15:52) aspirin [Aspirin] Adverse Reaction (Mild, Verified 03/21/18 15:52) Thins blood too much Penicillins Adverse Reaction (Mild, Verified 03/21/18 15:52) Yeast infections ibuprofen [From Motrin] Adverse Reaction (Verified 03/21/18 15:52) Past Medical History - General Information source: Patient - Social History Smoking Status: Never Smoker Chew tobacco use (# tins/day): No Frequency of alcohol use: Occasional Drug Abuse: None Family History: Reviewed & Not Pertinent, DM, Hypertension, Malignancy Patient has suicidal ideation: No Patient has homicidal ideation: No - Past Medical History Cardiac Medical History: Reports: Hx Hypercholesterolemia, Hx Hypertension Pulmonary Medical History: Reports: Hx Asthma, Hx Bronchitis, Hx Pneumonia Denies: Hx COPD - States she has not been diagnosed with COPD GI Medical History: Reports: Hx Gastroesophageal Reflux Disease, Hx Hiatal Hernia Musculoskeletal Medical History: Reports Hx Arthritis Psychiatric Medical History: Reports: Hx Depression - on occassion Past Surgical History: Reports: Hx Abdominal Surgery - ODELL, Hx Appendectomy, Hx Orthopedic Surgery, Hx Tonsillectomy - Immunizations Hx Diphtheria, Pertussis, Tetanus Vaccination: No Hx Pneumococcal Vaccination: 07/10/15 <INES BARRIENTOS - Last Filed: 03/21/18 16:53> Review of Systems - Review of Systems Constitutional: No symptoms reported EENT: No symptoms reported Cardiovascular: See HPI, Chest pain Respiratory: See HPI, Cough Gastrointestinal: No symptoms reported Genitourinary: No symptoms reported Female Genitourinary: No symptoms reported Musculoskeletal: No symptoms reported Skin: No symptoms reported Hematologic/Lymphatic: No symptoms reported Neurological/Psychological: No symptoms reported -: Yes All other systems reviewed and negative <INES BARRIENTOS - Last Filed: 03/21/18 16:53> Physical Exam - General General appearance: Appears well, Alert In distress: None - HEENT Head: Normocephalic, Atraumatic Eyes: Normal Conjunctiva: Normal Extraocular movements intact: Yes Pupils: PERRL Mucous membranes: Normal Neck: Normal - Respiratory Respiratory status: No respiratory distress Chest status: Nontender Breath sounds: Other - Coarse breath sounds Chest palpation: Normal - Cardiovascular Rhythm: Regular Heart sounds: Normal auscultation Murmur: No Friction rub: No Gallop: None auscultated - Back Back: Other - Kyphosis - Extremities General upper extremity: Normal ROM General lower extremity: Normal ROM - Neurological Neuro grossly intact: Yes Cognition: Normal Orientation: AAOx4 Umair Coma Scale Eye Opening: Spontaneous Preble Coma Scale Verbal: Oriented Preble Coma Scale Motor: Obeys Commands Preble Coma Scale Total: 15 Speech: Normal - Psychological Associated symptoms: Normal affect, Normal mood - Skin Skin Temperature: Warm Skin Moisture: Dry Skin Color: Normal <INES BARRIENTOS - Last Filed: 03/21/18 16:53> - Vital signs Vitals: Temp Pulse Resp BP Pulse Ox 97.8 F 87 20 185/87 H 97 03/21/18 15:56 03/21/18 15:56 03/21/18 15:56 03/21/18 15:56 03/21/18 15:56 Course - Laboratory Result Diagrams: 03/21/18 16:15 03/21/18 16:15 <INES BARRIENTOS - Last Filed: 03/21/18 16:53> - Laboratory Result Diagrams: 03/21/18 16:15 03/21/18 16:15 - Diagnostic Test Radiology reviewed: Reports reviewed - Initial chest x-ray reading suggested CHF and possible right middle lobe infiltrate. I discussed the case with the radiologist and pointed him to a chest CT scan from 4 months ago to compare. It was ultimately decided that the patient has nothing acute going on in her lungs at this time. The BNP is quite low, so CHF is not a consideration. She does have considerable scarring in her lungs consistent with COPD. <BUZZ CANTU - Last Filed: 03/21/18 17:47> - Vital Signs Vital signs: Temp Pulse Resp BP Pulse Ox 97.8 F 87 20 185/87 H 97 03/21/18 15:56 03/21/18 15:56 03/21/18 15:56 03/21/18 15:56 03/21/18 15:56 - Laboratory Laboratory results interpreted by me: 03/21/18 16:15 Calcium 10.4 H Discharge <INES BARRIENTOS - Last Filed: 03/21/18 16:53> <BUZZ CANTU - Last Filed: 03/21/18 17:47> - Discharge Clinical Impression: Acute viral bronchitis High blood pressure Qualifiers: Hypertension type: unspecified Qualified Code(s): I10 - Essential (primary) hypertension Condition: Stable Disposition: HOME, SELF-CARE Additional Instructions: Bronchitis: You have acute bronchitis. This disease is an infection or inflammation of the air passageways in your lungs. Symptoms usually include cough, low grade fever, shortness of breath, and wheezing. The cough usually persists for a couple of weeks. Most cases of bronchitis get better without antibiotics. We prescribe antibiotics when we believe bacteria are damaging your airways, or if there's high risk the bronchitis will worsen into pneumonia. Increase your fluid intake. A cool mist humidifier may make your lungs more comfortable. An expectorant (cough medicine that loosens phlegm) can help. If you smoke, STOP!!! Recovery from bronchitis can be somewhat slow, but you should see improvement within a day or two. Repeated episodes of bronchitis may result in lung damage -- for example, chronic bronchitis, recurrent pneumonias, or emphysema. Call the doctor if you develop increasing fever, shortness of breath, chest pain, bloody sputum, or otherwise worsen. If you have not improved at all after several days, contact the physician. You appear to have a viral bronchitis at this time. You should continue your regular medications. Stop taking the capsules you showed me that you are taking for cough, as these are probably causing your blood pressure to be high at this time. You can take Robitussin-DM to treat your cough and congestion. Be sure to drink plenty of fluids and get plenty of rest. Follow-up with your doctor Saturday if not improving. RETURN TO THE EMERGENCY ROOM IF ANY NEW OR WORSENING SYMPTOMS. Referrals: RUBI AGUIAR MD [ACTIVE STAFF] - Follow up as needed Scribe Attestation: 03/21/18 17:44 I personally performed the services described in the documentation, reviewed and edited the documentation which was dictated to the scribe in my presence, and it accurately records my words and actions. (BUZZ CANTU) Scribe Documentation - Scribe Written by Scribe:: Nestor Rea, 03/21/2018 16:43 acting as scribe for :: Thalia <INES BARRIENTOS - Last Filed: 03/21/18 16:53>
[2018-03-21 16:50] LABS: ALANINE AMINOTRANSFERASE 18 U/L (9-52); ALBUMIN 4.3 g/dL (3.5-5.0); ALKALINE PHOSPHATASE 65 U/L (38-126); ANION GAP 13 (5-19); ASPARTATE AMINO TRANSFERASE 26 U/L (14-36); BILIRUBIN,DIRECT 0.3 mg/dL (0.0-0.4); BILIRUBIN,TOTAL 0.5 mg/dL (0.2-1.3); BLOOD UREA NITROGEN 18 mg/dL (7-20); CALCIUM 10.4 mg/dL (8.4-10.2); CARBON DIOXIDE 28 mmol/L (22-30); CHLORIDE 100 mmol/L (98-107); GLUCOSE 94 mg/dL (75-110); POTASSIUM 4.2 mmol/L (3.6-5.0); SODIUM 140.7 mmol/L (137-145); TOTAL PROTEIN 6.5 g/dL (6.3-8.2)
[2018-03-21 17:03] LABS: CREATINE KINASE 40 U/L (30-135)
[2018-03-21 17:24] LABS: NT PRO BNP 326 pg/mL (<450)
[2018-03-21 17:30] LABS: TROPONIN I < 0.012 ng/mL
[2018-03-21 18:05] VITALS: BP 163/92
== END 2018-03-21 18:05 | disposition home or self-care (01) ==
LOC: ER 15:50
DX: J45.909 Unspecified asthma, uncomplicated (principal); I10 Essential (primary) hypertension; R05 Cough; R07.9 Chest pain, unspecified
CPT/HCPCS: 36415; 71046; 80053; 82550; 83880; 84484; 85025; 99284

== ENCOUNTER → 2018-03-27 | Outpatient (CLI) | payer MEDICARE ==
--- NOTE | 2018-03-28 09:49 | XCELERA REPORT ---
[address] [address] Transthoracic Echocardiogram Report Name: BHUPINDER NARVAEZ Age: 77 yrs Gender: Female : 1940 Patient Status: Outpatient Patient Location: Study Date: 03/27/2018 11:26 AM Height: 59 in Weight: 142 lb BSA: 1.6 m2 Procedure: A complete two-dimensional transthoracic echocardiogram was performed (2D, M-mode, spectral and color flow Doppler). The study was technically adequate with some images being suboptimal in quality. Reason For Study: CHF, SOB Ordering Physician: RUBI AGUIAR Performed By: Garfield Gallegos Interpretation Summary The left ventricular ejection fraction is normal. There is mild concentric left ventricular hypertrophy. The left ventricle is grossly normal size. Doppler measurements suggest pseudonormalized left ventricular relaxation, which is associated with grade II/IV or mild to moderate diastolic dysfunction Regional wall motion abnormalities cannot be excluded due to limited visualization. The right ventricular systolic function is normal. The right atrium is normal in size Borderline left atrial enlargement. There is a moderate amount of mitral regurgitation There is no mitral valve stenosis. There is no aortic valve stenosis No aortic regurgitation is present. There is a trace or physiologic amount of tricuspid regurgitation Tricuspid regurgitation jet envelope not well defined to measure RV systolic pressure accurately. There is no tricuspid stenosis. The aortic root is not well visualized but is probably normal size. The inferior vena cava appeared normal and decreased > 50% with respiration (RAP 5-10 mmHg) There is no pericardial effusion. MMode/2D Measurements & Calculations RVDd: 3.4 cm LVIDd: 5.3 cm FS: 29.6 % Ao root diam: 3.2 cm IVSd: 0.74 cm LVIDs: 3.7 cm EDV(Teich): 134.2 ml LVPWd: 0.78 cmESV(Teich): 58.8 ml Ao root area: 8.1 cm2 EF(Teich): 56.2 % LA dimension: 3.5 cm LVOT diam: 2.0 cm LVOT area: 3.3 cm2 Doppler Measurements & Calculations MV E max elida: MV P1/2t max elida: Ao V2 max: LV V1 max P.2 cm/sec 55.0 cm/sec 118.3 cm/sec 4.7 mmHg MV A max elida: MV P1/2t: 92.5 msec Ao max PG: LV V1 max: 76.0 cm/sec MVA(P1/2t): 2.4 cm2 5.6 mmHg 108.0 cm/sec MV E/A: 0.79 MV dec slope: AMANDEEP(V,D): 3.0 cm2LV dP/dt: 174.1 cm/sec2 1010 mmHg/s MV dec time: 0.35 sec TV V2 max: PA V2 max: 258.3 cm/sec 77.1 cm/sec TV max PG: PA max P.4 mmHg 26.7 mmHg Left Ventricle The left ventricle is grossly normal size. There is mild concentric left ventricular hypertrophy. The left ventricular ejection fraction is normal. Doppler measurements suggest pseudonormalized left ventricular relaxation, which is associated with grade II/IV or mild to moderate diastolic dysfunction. Regional wall motion abnormalities cannot be excluded due to limited visualization. Right Ventricle The right ventricle is grossly normal size. There is normal right ventricular wall thickness. The right ventricular systolic function is normal. Atria The right atrium is normal in size. Borderline left atrial enlargement. Interarterial septum not well visualized and not well dopplered. Cannot comment on ASD/PFO presence. Mitral Valve The mitral valve is grossly normal. There is no mitral valve stenosis. There is a moderate amount of mitral regurgitation. Aortic Valve The aortic valve opens well. There is no aortic valve stenosis. No aortic regurgitation is present. Tricuspid Valve The tricuspid valve is not well visualized secondary to technical limitations. There is no tricuspid stenosis. There is a trace or physiologic amount of tricuspid regurgitation. Tricuspid regurgitation jet envelope not well defined to measure RV systolic pressure accurately. Pulmonic Valve The pulmonic valve is not well visualized. Great Vessels The aortic root is not well visualized but is probably normal size. The inferior vena cava appeared normal and decreased > 50% with respiration (RAP 5-10 mmHg). Effusions There is no pericardial effusion. : RUBI AGUIAR > Simran Pulliam
== END ==
LOC: SP 10:28
PROVIDERS: ATTEND Family Medicine
DX: I50.9 Heart failure, unspecified (principal); R06.02 Shortness of breath
CPT/HCPCS: 93306

== ENCOUNTER 2018-05-16 16:19 | Emergency (ER) | payer MEDICARE ==
--- NOTE | 2018-05-16 18:47 | ER Document Report ---
ED Medical Screen (RME) - General Chief Complaint: Shortness Of Breath Stated Complaint: BACK PAIN Time Seen by Provider: 05/16/18 18:33 Notes: Patient is a 77-year-old female who presents with multiple complaints today. Patient reports low back pain on the left side. Patient reports she has chronic back pain however she states that over the last 36 hours she has had increased pain to the left side. Patient denies any trauma or injury. Patient also complains of productive cough over the last 5 days, wheezing and shortness of breath. Patient denies any fever. Exam: Mild expiratory wheezing noted bilaterally. I have greeted and performed a rapid initial assessment of this patient. A comprehensive ED assessment and evaluation of the patient, analysis of test results and completion of the medical decision making process will be conducted by additional ED providers. Dictation of this chart was performed using voice recognition software; therefore, there may be some unintended grammatical errors. TRAVEL OUTSIDE OF THE [place] IN LAST 30 DAYS: No - Related Data Allergies/Adverse Reactions: latex [Latex] Allergy (Intermediate, Verified 03/21/18 15:52) ITCHING levofloxacin [From Levaquin] Allergy (Unknown, Verified 03/21/18 15:52) aspirin [Aspirin] Adverse Reaction (Mild, Verified 03/21/18 15:52) Thins blood too much Penicillins Adverse Reaction (Mild, Verified 03/21/18 15:52) Yeast infections ibuprofen [From Motrin] Adverse Reaction (Verified 03/21/18 15:52) Past Medical History - Social History Chew tobacco use (# tins/day): No Frequency of alcohol use: Occasional Drug Abuse: None - Past Medical History Cardiac Medical History: Reports: Hx Hypercholesterolemia, Hx Hypertension Denies: Hx Congestive Heart Failure, Hx Coronary Artery Disease, Hx Heart Attack, Hx Pulmonary Embolism Pulmonary Medical History: Reports: Hx Asthma, Hx Bronchitis, Hx Pneumonia Comment Only: Hx COPD - States she has not been diagnosed with COPD Neurological Medical History: Denies: Hx Cerebrovascular Accident, Hx Migraine, Hx Seizures Renal/ Medical History: Denies: Hx Peritoneal Dialysis GI Medical History: Reports: Hx Gastroesophageal Reflux Disease, Hx Hiatal Hernia. Denies: Hx Hepatitis, Hx Ulcer Musculoskeltal Medical History: Reports Hx Arthritis Psychiatric Medical History: Reports: Hx Depression - on occassion Infectious Medical History: Denies: Hx Hepatitis Past Surgical History: Reports: Hx Abdominal Surgery - ODELL, Hx Appendectomy, Hx Orthopedic Surgery, Hx Tonsillectomy. Denies: Hx Hysterectomy, Hx Mastectomy , Hx Open Heart Surgery, Hx Pacemaker - Immunizations Hx Diphtheria, Pertussis, Tetanus Vaccination: No History of Influenza Vaccine for 06/2017 - 11/2017 Season: Yes Influenza Administration Date for 06/2017 - 11/2017 Season: 06/11/17 Physical Exam - Vital signs Vitals: Temp Pulse Resp BP Pulse Ox 97.4 F 79 16 118/66 96 05/16/18 16:27 05/16/18 16:27 05/16/18 16:27 05/16/18 16:27 05/16/18 16:27 Course - Vital Signs Vital signs: Temp Pulse Resp BP Pulse Ox 97.4 F 79 16 118/66 96 05/16/18 16:27 05/16/18 16:27 05/16/18 16:27 05/16/18 16:27 05/16/18 16:27 Doctor's Discharge - Discharge Referrals: RUBI AGUIAR MD [Primary Care Provider] - Follow up as needed
[2018-05-16] MEDS ORDERED: IPRATROPIUM/ALBUTEROL 0.5-2.5 MG/3 ML AMPUL NEB ONE (18:56)
--- NOTE | 2018-05-16 19:16 | RADIOLOGY REPORT (SQ) ---
EXAM DESCRIPTION: CHEST SINGLE VIEW COMPLETED DATE/TIME: 05/16/2018 6:53 pm REASON FOR STUDY: productive cough COMPARISON: March 2018 EXAM PARAMETERS: NUMBER OF VIEWS: One view. TECHNIQUE: Single frontal radiographic view of the chest acquired. RADIATION DOSE: NA LIMITATIONS: None. FINDINGS: LUNGS AND PLEURA: There is increased density in the right lung base which could represent atelectatic changes or pneumonic infiltrate. Remaining lung wilson are clear P MEDIASTINUM AND HILAR STRUCTURES: No masses. Contour normal. HEART AND VASCULAR STRUCTURES: Heart normal in size. Normal vasculature. BONES: No acute findings. HARDWARE: None in the chest. OTHER: No other significant finding. IMPRESSION: Right basilar density which could represent atelectatic changes or pneumonic infiltrate. Remaining lung wilson are clear TECHNICAL DOCUMENTATION: JOB ID: [id number] [employer]- All Rights Reserved Reading location - IP/workstation name: [email or web address]
--- NOTE | 2018-05-16 19:42 | RADIOLOGY REPORT (SQ) ---
EXAM DESCRIPTION: L SPINE WHOLE COMPLETED DATE/TIME: 05/16/2018 7:34 pm REASON FOR STUDY: low back pain COMPARISON: None. NUMBER OF VIEWS: Five views including obliques. TECHNIQUE: AP, lateral, oblique, and sacral radiographic images acquired of the lumbar spine. LIMITATIONS: None. FINDINGS: MINERALIZATION: Osteopenia. SEGMENTATION: Normal. No transitional anatomy. ALIGNMENT: Grade 1-2 anterolisthesis of L5 on S1. VERTEBRAE: Endplate compression changes seen at L2 and L3 that do not appear particularly acute. DISCS: Disc spaces are narrowed at L4-5 and L5-S1. POSTERIOR ELEMENTS: Pedicles and facets are intact. No pars defect or posterior arch defects. HARDWARE: None in the spine. PARASPINAL SOFT TISSUES: Normal. PELVIS: Intact as visualized. No fractures or worrisome bone lesions. SI joints intact. OTHER: No other significant finding. IMPRESSION: Anterolisthesis of L5 on S1. Degenerative disc disease. Endplate compression changes t hat appear to be old. TECHNICAL DOCUMENTATION: JOB ID: [id number] [email or web address]- All Rights Reserved Reading location - IP/workstation name: [email or web address]
[2018-05-16] MEDS ORDERED: BENZONATATE 100 MG CAPSULE PO ONE (22:32)
--- NOTE | 2018-05-16 22:32 | ER Document Report ---
ED Respiratory Problem <ALONDRABUZZ Duff - Last Filed: 05/16/18 22:33> - General Mode of Arrival: Ambulatory Information source: Patient TRAVEL OUTSIDE OF THE [place] IN LAST 30 DAYS: No <SYLVAIN MCNEIL - Last Filed: 05/16/18 22:46> - General Chief Complaint: Shortness Of Breath Stated Complaint: BACK PAIN Time Seen by Provider: 05/16/18 18:33 Notes: 77-year-old female that presents to the department today with complaints of shortness of breath with a non-productive cough. Patient had bronchitis in March and her symptoms then are similar to today. Patient mentions she is simply here to get a refill on her Tessalon Perles. Patient states she is she has Advair and albuterol at home. Patient also mentions chronic back pain which is unchanged. (SYLVAIN MCNEIL) - Related Data Allergies/Adverse Reactions: latex [Latex] Allergy (Intermediate, Verified 03/21/18 15:52) ITCHING levofloxacin [From Levaquin] Allergy (Unknown, Verified 03/21/18 15:52) aspirin [Aspirin] Adverse Reaction (Mild, Verified 03/21/18 15:52) Thins blood too much Penicillins Adverse Reaction (Mild, Verified 03/21/18 15:52) Yeast infections ibuprofen [From Motrin] Adverse Reaction (Verified 03/21/18 15:52) Past Medical History - General Information source: Patient - Social History Smoking Status: Unknown if Ever Smoked Cigarette use (# per day): No Chew tobacco use (# tins/day): No Frequency of alcohol use: Occasional Drug Abuse: None Lives with: Family Family History: Reviewed & Not Pertinent, DM, Hypertension, Malignancy Patient has suicidal ideation: No Patient has homicidal ideation: No - Past Medical History Cardiac Medical History: Reports: Hx Hypercholesterolemia, Hx Hypertension Pulmonary Medical History: Reports: Hx Asthma, Hx Bronchitis, Hx Pneumonia Comment Only: Hx COPD - States she has not been diagnosed with COPD GI Medical History: Reports: Hx Gastroesophageal Reflux Disease, Hx Hiatal Hernia Musculoskeletal Medical History: Reports Hx Arthritis Psychiatric Medical History: Reports: Hx Depression - on occassion Past Surgical History: Reports: Hx Abdominal Surgery - ODELL, Hx Appendectomy, Hx Orthopedic Surgery, Hx Tonsillectomy - Immunizations Hx Diphtheria, Pertussis, Tetanus Vaccination: No Hx Pneumococcal Vaccination: 07/10/15 <EWASYLVAIN - Last Filed: 05/16/18 22:46> Review of Systems - Review of Systems Constitutional: No symptoms reported EENT: No symptoms reported Cardiovascular: No symptoms reported Respiratory: See HPI, Cough, Short of breath, Wheezing Gastrointestinal: No symptoms reported Genitourinary: No symptoms reported Female Genitourinary: No symptoms reported Musculoskeletal: See HPI, Back pain Skin: No symptoms reported Hematologic/Lymphatic: No symptoms reported Neurological/Psychological: No symptoms reported -: Yes All other systems reviewed and negative <SYLVAIN MCNEIL - Last Filed: 05/16/18 22:46> Physical Exam <BUZZ CANTU - Last Filed: 05/16/18 22:33> <EWA,SYLVAIN - Last Filed: 05/16/18 22:46> - Vital signs Vitals: Temp Pulse Resp BP Pulse Ox 97.4 F 79 16 118/66 96 05/16/18 16:27 05/16/18 16:27 05/16/18 16:27 05/16/18 16:27 05/16/18 16:27 - Notes Notes: Physical Exam: General: Alert, appears at baseline. HEENT: Normocephalic. Atraumatic. PERRL. Extraocular movements intact. Oropharynx clear. Neck: Supple. Non-tender. Respiratory: No respiratory distress. Barrel chested. Coarse breath sounds without rhonchi bilaterally. Mildly tachypneic. Cardiovascular: Regular rate and rhythm. Abdominal: Normal Inspection. Non-tender. No distension. Normal Bowel Sounds. Back: Lower back tenderness with palpation at baseline. Kyphosis. No deformity or step off. Extremities: Moves all four extremities. Upper extremities: Normal inspection. Normal ROM. Lower extremities: Normal inspection. No edema. Normal ROM. Neurological: Normal cognition. AAOx4. Normal speech. Psychological: Normal affect. Normal Mood. Skin: Warm. Dry. Normal color. (SYLVAIN MCNEIL) Course - Diagnostic Test Radiology reviewed: Image reviewed, Reports reviewed - Chest x-ray shows COPD with chronic scarring in the right lung base. Lumbar spine shows old endplate compressions, anterolisthesis L5-S1, degenerative disc disease. <BUZZ CANTU - Last Filed: 05/16/18 22:33> - Vital Signs Vital signs: Temp Pulse Resp BP Pulse Ox 97.8 F 79 11 L 132/67 H 95 05/16/18 22:34 05/16/18 16:27 05/16/18 22:34 05/16/18 22:34 05/16/18 22:34 Discharge <BUZZ CANTU - Last Filed: 05/16/18 22:33> <SYLVAIN MCNEIL - Last Filed: 05/16/18 22:46> - Discharge Clinical Impression: Bronchitis COPD (chronic obstructive pulmonary disease) Qualifiers: COPD type: unspecified COPD Qualified Code(s): J44.9 - Chronic obstructive pulmonary disease, unspecified Chronic low back pain Qualifiers: Back pain laterality: left Sciatica presence: without sciatica Qualified Code(s ): M54.5 - Low back pain Condition: Stable Disposition: HOME, SELF-CARE Additional Instructions: Bronchitis You have acute bronchitis. This disease is an infection or inflammation of the air passageways in your lungs. Symptoms usually include cough, low grade fever, shortness of breath, and wheezing. The cough usually persists for a couple of weeks. Most cases of bronchitis get better without antibiotics. We prescribe antibiotics when we believe bacteria are damaging your airways, or if there's high risk the bronchitis will worsen into pneumonia. Increase your fluid intake. A cool mist humidifier may make your lungs more comfortable. An expectorant (cough medicine that loosens phlegm) can help. If you smoke, STOP!!! Recovery from bronchitis can be somewhat slow, but you should see improvement within a day or two. Repeated episodes of bronchitis may result in lung damage -- for example, chronic bronchitis, recurrent pneumonias, or emphysema. Call the doctor if you develop increasing fever, shortness of breath, chest pain, bloody sputum, or otherwise worsen. If you have not improved at all after several days, contact the physician. Take the Tessalon Perles as prescribed for cough control. Drink plenty of fluids. Follow-up with Dr. Bai in the next few days if not improving. RETURN TO THE EMERGENCY ROOM IF ANY NEW OR WORSENING SYMPTOMS. Prescriptions: Benzonatate [Tessalon Perles 100 mg Capsule] 100 mg PO ASDIR PRN #30 capsule PRN Reason: Referrals: RUBI BAI MD [Primary Care Provider] - Follow up as needed Scribe Attestation: 05/16/18 22:36 I personally performed the services described in the documentation, reviewed and edited the documentation which was dictated to the scribe in my presence, and it accurately records my words and actions. (BUZZ CANTU) Scribe Documentation - Scribe Written by Scribe:: Nestor Lassiter, 05/16/2018 [id number] acting as scribe for :: Alondra <SYLVAIN MCNEIL - Last Filed: 05/16/18 22:46>
[2018-05-16 23:04] VITALS: BP 133/96
== END 2018-05-16 23:07 | disposition home or self-care (01) ==
LOC: ER 16:19
DX: J44.9 Chronic obstructive pulmonary disease, unspecified (principal); R06.02 Shortness of breath; R05 Cough; M43.17 Spondylolisthesis, lumbosacral region; M43.16 Spondylolisthesis, lumbar region; M54.5 Low back pain; G89.29 Other chronic pain; I10 Essential (primary) hypertension; Z91.040 Latex allergy status; Z88.1 Allergy status to other antibiotic agents; Z87.01 Personal history of pneumonia (recurrent)
CPT/HCPCS: 94640; 99285; 71045; 72110; A9270 ×2; J7620

== ENCOUNTER 2018-06-06 13:30 | Inpatient (IN) | payer MEDICARE ==
[2018-06-06] MEDS ORDERED: MORPHINE SULFATE 10 MG/ML INJ IV ONE (13:46)
[2018-06-06] MEDS ORDERED: NORMAL SALINE 1000 ML 1,000 ML IV ONE (13:46)
--- NOTE | 2018-06-06 13:57 | ER Document Report ---
ED General - General Stated Complaint: ALTERED MENTAL STATUS Time Seen by Provider: 06/06/18 13:36 TRAVEL OUTSIDE OF THE [place] IN LAST 30 DAYS: No - HPI Notes: Patient is a 77-year-old female that presents to the emergency department for chief complaint of confusion. Patient presents by EMS from home. She has had increased falls and confusion. EMS has been called to her house for falls a few times recently but she had been refusing transport until today. She states her most recent fall was yesterday she tripped and landed in a box. She states she was able to crawl into another room but was laying on the floor for most of the evening. She has no specific complaints other than she had some mild low back pain yesterday which has completely resolved. She also has some mild pain in her forehead and states she hit it on the ground but is not sure if she lost consciousness or not. She denies any nausea, vomiting, fevers, chills, abdominal pain, numbness , weakness and urinary complaints. She does states she is incontinent of urine which is not new for her Past Medical History: COPD, hypertension, hyperlipidemia, GERD Past Surgical History: Reviewed in chart Social History: Denies drugs alcohol and tobacco Family History: Reviewed and noncontributory for presenting illness Allergies: Reviewed, see documented allergy list. REVIEW OF SYSTEMS: CONSTITUTIONAL : No fever No chills No diaphoresis No recent illness EENT: No vision changes No congestion No sore throat CARDIOVASCULAR: No chest pain No palpitations RESPIRATORY: No shortness of breath No cough No difficulty breathing GASTROINTESTINAL: No abdominal pain No nausea No vomiting No diarrhea GENITOURINARY: No dysuria No hematuria No difficulty urinating MUSCULOSKELETAL: No back pain No leg pain No arm pain SKIN: No rashes No lesions LYMPHATIC: No swollen, enlarged glands. NEUROLOGICAL: Confusion No lightheadedness No headache No weakness No paresthesias PSYCHIATRIC: No anxiety No depression PHYSICAL EXAMINATION: Vital signs reviewed, nursing noted reviewed. GENERAL: Well-appearing, well-nourished and in no acute distress. HEAD: Atraumatic, normocephalic. EYES: Eyes appear normal, extraocular movements intact, sclera anicteric, conjunctiva are normal. ENT: nares patent, oropharynx clear without exudates. Dry mucous membranes. NECK: Normal range of motion, supple without lymphadenopathy, nontender LUNGS: Breath sounds clear to auscultation bilaterally and equal. No wheezes rales or rhonchi. HEART: Regular rate and rhythm without murmurs ABDOMEN: Soft, nontender, normoactive bowel sounds. No rebound, guarding, or rigidity. No masses appreciated. EXTREMITIES: Nontender, good range of motion, no pitting or edema. No long bone deformity or tenderness. Pelvis stable. NEUROLOGICAL: No focal neurological deficits. Moves all extremities spontaneously Motor and sensory grossly intact on exam. PSYCH: Normal mood, normal affect. SKIN: Warm, Dry, normal turgor. Forehead ecchymosis, bilateral anterior knee ecchymosis, multiple small areas of ecchymosis to right upper extremity - Related Data Allergies/Adverse Reactions: latex [Latex] Allergy (Intermediate, Verified 03/21/18 15:52) ITCHING levofloxacin [From Levaquin] Allergy (Unknown, Verified 03/21/18 15:52) aspirin [Aspirin] Adverse Reaction (Mild, Verified 03/21/18 15:52) Thins blood too much Penicillins Adverse Reaction (Mild, Verified 03/21/18 15:52) Yeast infections ibuprofen [From Motrin] Adverse Reaction (Verified 03/21/18 15:52) Past Medical History - Social History Smoking Status: Never Smoker Family History: Reviewed & Not Pertinent, DM, Hypertension, Malignancy - Past Medical History Cardiac Medical History: Reports: Hx Hypercholesterolemia, Hx Hypertension Denies: Hx Congestive Heart Failure, Hx Coronary Artery Disease, Hx Heart Attack, Hx Pulmonary Embolism Pulmonary Medical History: Reports: Hx Asthma, Hx Bronchitis, Hx Pneumonia Comment Only: Hx COPD - States she has not been diagnosed with COPD Neurological Medical History: Denies: Hx Cerebrovascular Accident, Hx Migraine, Hx Seizures Renal/ Medical History: Denies: Hx Peritoneal Dialysis GI Medical History: Reports: Hx Gastroesophageal Reflux Disease, Hx Hiatal Hernia. Denies: Hx Hepatitis, Hx Ulcer Musculoskeletal Medical History: Reports Hx Arthritis Psychiatric Medical History: Reports: Hx Depression - on occassion Infectious Medical History: Denies: Hx Hepatitis Past Surgical History: Reports: Hx Abdominal Surgery - ODELL, Hx Appendectomy, Hx Orthopedic Surgery, Hx Tonsillectomy. Denies: Hx Hysterectomy, Hx Mastectomy , Hx Open Heart Surgery, Hx Pacemaker - Immunizations Hx Diphtheria, Pertussis, Tetanus Vaccination: No Hx Pneumococcal Vaccination: 07/10/15 Review of Systems - Review of Systems Notes: Dictated Physical Exam - Vital signs Vitals: Pulse Ox 93 06/06/18 13:39 - Notes Notes: Dictated Course - Re-evaluation Re-evalutation: 06/06/18 13:57 Vitals reviewed. Nursing notes reviewed. Patient is tachycardic and started on IV hydration. She has ecchymosis to her anterior knees which she states occurred after crawling on the floor. She has no bony tenderness or decreased range of motion of her knees and I do not suspect underlying fracture. Patient has no hip tenderness or ecchymosis. EKG obtained shows deep T wave inversions in her lateral leads with no ST elevation 06/06/18 14:51 On reevaluation patient is resting comfortably and in no acute distress. She has no chest pain, diaphoresis or shortness of breath. She has no complaints currently. She is still alert and oriented to person place and time. Lab work shows elevated CK at 271 and elevated troponin at 1.14. Patient's NSTEMI will be treated with heparin and aspirin. She did have aspirin listed as an allergy but states that she bruises easily and her allergic reaction to aspirin is that it "things my blood". We discussed risks and benefits and she agreed that 1 dose of aspirin would be acceptable. Patient will be admitted to the hospital for further care. Case discussed with Oralia Bellamy who accepted admission Laboratory 06/06/18 06/06/18 06/06/18 13:35 13:35 13:35 WBC 12.8 H RBC 5.38 H Hgb 14.7 Hct 43.8 MCV 81 MCH 27.3 MCHC 33.6 RDW 13.8 Plt Count 272 Seg Neutrophils % 74.0 Lymphocytes % 16.7 Monocytes % 8.7 Eosinophils % 0.0 Basophils % 0.6 Absolute Neutrophils 9.4 H Absolute Lymphocytes 2.1 Absolute Monocytes 1.1 Absolute Eosinophils 0.0 Absolute Basophils 0.1 Sodium 134.7 L Potassium 3.8 Chloride 99 Carbon Dioxide 25 Anion Gap 11 BUN 25 H Creatinine 0.76 Est GFR ( Amer) > 60 Est GFR (Non-Af Amer) > 60 Glucose 110 Lactic Acid Calcium 9.4 Total Bilirubin 1.2 Direct Bilirubin 0.6 H Neonat Total Bilirubin Not Reportable Neonat Direct Bilirubin Not Reportable Neonat Indirect Bili Not Reportable AST 54 H ALT 28 Alkaline Phosphatase 79 Creatine Kinase 271 H Troponin I 1.140 Total Protein 7.0 Albumin 3.9 Urine Color Urine Appearance Urine pH Ur Specific Strawn Urine Protein Urine Glucose (UA) Urine Ketones Urine Blood Urine Nitrite Urine Bilirubin Urine Urobilinogen Ur Leukocyte Esterase Urine WBC (Auto) Urine RBC (Auto) U Hyaline Cast (Auto) Squamous Epi Cells Auto Urine Mucus (Auto) Urine Ascorbic Acid 06/06/18 06/06/18 13:35 14:01 WBC RBC Hgb Hct MCV MCH MCHC RDW Plt Count Seg Neutrophils % Lymphocytes % Monocytes % Eosinophils % Basophils % Absolute Neutrophils Absolute Lymphocytes Absolute Monocytes Absolute Eosinophils Absolute Basophils Sodium Potassium Chloride Carbon Dioxide Anion Gap BUN Creatinine Est GFR ( Amer) Est GFR (Non-Af Amer) Glucose Lactic Acid 1.3 Calcium Total Bilirubin Direct Bilirubin Neonat Total Bilirubin Neonat Direct Bilirubin Neonat Indirect Bili AST ALT Alkaline Phosphatase Creatine Kinase Troponin I Total Protein Albumin Urine Color DARK YELLOW Urine Appearance SLIGHTLY-CLOUDY Urine pH 5.0 Ur Specific Strawn 1.023 Urine Protein 100 H Urine Glucose (UA) NEGATIVE Urine Ketones 20 H Urine Blood NEGATIVE Urine Nitrite NEGATIVE Urine Bilirubin SMALL H Urine Urobilinogen 4.0 H Ur Leukocyte Esterase NEGATIVE Urine WBC (Auto) 6 Urine RBC (Auto) 3 U Hyaline Cast (Auto) 9 Squamous Epi Cells Auto <1 Urine Mucus (Auto) MANY Urine Ascorbic Acid NEGATIVE Chest X-Ray 06/06/18 13:36 IMPRESSION: Cardiomegaly with no heather pulmonary edema. Hiatal hernia. Head CT 06/06/18 13:37 IMPRESSION: MILD CHRONIC MICROVASCULAR ISCHEMIA. NO ACUTE IMAGING FINDINGS IN THE BRAIN. EVIDENCE OF ACUTE STROKE: NO. Cervical Spine CT 06/06/18 13:47 IMPRESSION: NO ACUTE OR SIGNIFICANT FINDINGS IN THE CERVICAL SPINE. . - Vital Signs Vital signs: Temp Pulse Resp BP Pulse Ox 98.3 F 101 H 21 H 108/95 H 93 06/06/18 13:42 06/06/18 13:42 06/06/18 14:14 06/06/18 14:00 06/06/18 14:14 - Laboratory Result Diagrams: 06/06/18 13:35 06/06/18 13:35 Laboratory results interpreted by me: 06/06/18 06/06/18 06/06/18 13:35 13:35 14:01 WBC 12.8 H RBC 5.38 H Absolute Neutrophils 9.4 H Sodium 134.7 L BUN 25 H Direct Bilirubin 0.6 H AST 54 H Creatine Kinase 271 H Urine Protein 100 H Urine Ketones 20 H Urine Bilirubin SMALL H Urine Urobilinogen 4.0 H - EKG Interpretation by Me Additional EKG results interpreted by me: 06/06/18 13:58 1347: Normal sinus rhythm with frequent PACs. Rate 95. Normal axis. Prolonged QT. Deep T wave inversions V3 through V6. No STEMI Discharge - Discharge Clinical Impression: Acute confusion, Abnormal EKG, Prolonged QT interval, Hyponatremia, NSTEMI (non -ST elevated myocardial infarction) Closed head injury Qualifiers: Encounter type: initial encounter Qualified Code(s): S09.90XA - Unspecified injury of head, initial encounter Traumatic ecchymosis of knee Qualifiers: Encounter type: initial encounter Laterality: unspecified laterality Qualified Code(s): S80.00XA - Contusion of unspecified knee, initial encounter Forehead contusion Qualifiers: Encounter type: initial encounter Qualified Code(s): S00.83XA - Contusion of other part of head, initial encounter Condition: Stable Disposition: ADMITTED INPATIENT Admitting Provider: Hospitalist Unit Admitted: Telemetry Referrals: RUBI AGUIAR MD [Primary Care Provider] - Follow up as needed
[2018-06-06 13:59] LABS: ABSOLUTE BASOPHILS # (AUTO) 0.1 10^3/uL (0.0-0.2); ABSOLUTE LYMPHOCYTES (AUTO) 2.1 10^3/uL (0.5-4.7); ABSOLUTE MONOCYTES (AUTO) 1.1 10^3/uL (0.1-1.4); ABSOLUTE NEUT (AUTO) 9.4 10^3/uL (1.7-8.2); BASOPHILS % (AUTO) 0.6 % (0-2); HEMATOCRIT 43.8 % (36.0-47.0); HEMOGLOBIN 14.7 g/dL (12.0-15.5); LYMPHOCYTES % (AUTO) 16.7 % (13-45); MEAN CORPUSCULAR HEMOGLOBIN 27.3 pg (27.0-33.4); MEAN CORPUSCULAR HGB CONC 33.6 g/dL (32.0-36.0); MEAN CORPUSCULAR VOLUME 81 fl (80-97); MONOCYTES % (AUTO) 8.7 % (3-13); PLATELET COUNT 272 10^3/uL (150-450); RED BLOOD COUNT 5.38 10^6/uL (3.72-5.28); RED CELL DISTRIBUTION WIDTH 13.8 % (11.5-14.0); TOTAL CELLS COUNTED % (AUTO) 100 %; WHITE BLOOD COUNT 12.8 10^3/uL (4.0-10.5)
[2018-06-06 14:16] LABS: APPEARANCE,URINE SLIGHTLY-CLOUDY; BILIRUBIN,URINE SMALL (NEGATIVE); GLUCOSE, URINE NEGATIVE (NEGATIVE); KETONES,URINE 20 mg/dL (NEGATIVE); LEUKOCYTE ESTERASE,URINE NEGATIVE (NEGATIVE); NITRITE,URINE NEGATIVE (NEGATIVE); PROTEIN,URINE 100 mg/dL (NEGATIVE); URINE SPECIFIC GRAVITY 1.023
[2018-06-06 14:17] LABS: COLOR,URINE DARK YELLOW
[2018-06-06 14:23] LABS: ALANINE AMINOTRANSFERASE 28 U/L (9-52); ALBUMIN 3.9 g/dL (3.5-5.0); ALKALINE PHOSPHATASE 79 U/L (38-126); ANION GAP 11 (5-19); ASPARTATE AMINO TRANSFERASE 54 U/L (14-36); BILIRUBIN,DIRECT 0.6 mg/dL (0.0-0.4); BILIRUBIN,TOTAL 1.2 mg/dL (0.2-1.3); BLOOD UREA NITROGEN 25 mg/dL (7-20); CALCIUM 9.4 mg/dL (8.4-10.2); CARBON DIOXIDE 25 mmol/L (22-30); CHLORIDE 99 mmol/L (98-107); CREATINE KINASE 271 U/L (30-135); GLUCOSE 110 mg/dL (75-110); POTASSIUM 3.8 mmol/L (3.6-5.0); SODIUM 134.7 mmol/L (137-145)
[2018-06-06] MEDS ORDERED: ONDANSETRON HCL INJ/PF 4 MG/2 ML SDV IV ONE (14:24)
[2018-06-06] MEDS ORDERED: ONDANSETRON HCL INJ/PF 4 MG/2 ML SDV ONE (14:25)
[2018-06-06] MEDS ORDERED: PROMETHAZINE HCL INJ 25 MG/1 ML VIAL IV ONE (14:27)
--- NOTE | 2018-06-06 14:27 | RADIOLOGY REPORT (SQ) ---
EXAM DESCRIPTION: CT CERVICAL SPINE WITHOUT COMPLETED DATE/TIME: 06/06/2018 2:17 pm REASON FOR STUDY: trauma COMPARISON: None. TECHNIQUE: Axial images acquired through the cervical spine without intravenous contrast. Images re viewed with lung, soft tissue and bone windows. Reconstructed coronal and sagittal MPR images review ed. Images stored on PACS. All CT scanners at this facility use dose modulation, iterative reconstruction, and/or weight based d osing when appropriate to reduce radiation dose to as low as reasonably achievable (ALARA). [facility]: Dose Right [facility]: CareDose [facility]: Dose Right [facility]: Teradose 4D [facility]: [employer] RADIATION DOSE: CT Rad equipment meets quality standard of care and radiation dose reduction techniq ues were employed. CTDIvol: 19.5 mGy. DLP: 411 mGy-cm. mGy. LIMITATIONS: None. FINDINGS: ALIGNMENT: Anatomic. MINERALIZATION: Normal. VERTEBRAL BODIES: No fractures or dislocation. DISCS: No significant disc disease. FACETS, LATERAL MASSES, POSTERIOR ELEMENTS: No fractures. No dislocation. No acute findings. HARDWARE: None in the spine. VISUALIZED RIBS: No fractures. LUNG APICES AND SOFT TISSUES: No significant or acute findings. OTHER: No other significant finding. IMPRESSION: NO ACUTE OR SIGNIFICANT FINDINGS IN THE CERVICAL SPINE. TECHNICAL DOCUMENTATION: JOB ID: [id number] Quality ID # [id number]: Final reports with documentation of one or more dose reduction techniques (e.g., Au tomated exposure control, adjustment of the mA and/or kV according to patient size, use of iterative reconstruction technique) 2010 [employer]- All Rights Reserved Reading location - IP/workstation name: [facility]
--- NOTE | 2018-06-06 14:27 | RADIOLOGY REPORT (SQ) ---
EXAM DESCRIPTION: CHEST SINGLE VIEW COMPLETED DATE/TIME: 06/06/2018 2:15 pm REASON FOR STUDY: mental status change COMPARISON: 05/16/2018 EXAM PARAMETERS: NUMBER OF VIEWS: One view. TECHNIQUE: Single frontal radiographic view of the chest acquired. RADIATION DOSE: NA LIMITATIONS: None. FINDINGS: LUNGS AND PLEURA: No acute infiltrate. MEDIASTINUM AND HILAR STRUCTURES: Hiatal hernia. HEART AND VASCULAR STRUCTURES: Heart size is enlarged. Pulmonary vascular congestion but no heather pu lmonary edema. BONES: No acute findings. HARDWARE: None in the chest. OTHER: No other significant finding. IMPRESSION: Cardiomegaly with no heather pulmonary edema. Hiatal hernia. TECHNICAL DOCUMENTATION: JOB ID: [id number]- All Rights Reserved Reading location - IP/workstation name: [email or web address]
[2018-06-06] MEDS ORDERED: PROMETHAZINE HCL INJ 25 MG/1 ML VIAL ONE (14:28)
--- NOTE | 2018-06-06 14:30 | RADIOLOGY REPORT (SQ) ---
EXAM DESCRIPTION: CT HEAD WITHOUT COMPLETED DATE/TIME: 06/06/2018 2:17 pm REASON FOR STUDY: mental status change COMPARISON: 08/27/2012 TECHNIQUE: Axial images acquired through the brain without intravenous contrast. Images reviewed wi th bone, brain and subdural windows. Additional sagittal and coronal reconstructions were generated. Images stored on PACS. All CT scanners at this facility use dose modulation, iterative reconstruction, and/or weight based d osing when appropriate to reduce radiation dose to as low as reasonably achievable (ALARA). [facility]: Dose Right [facility]: CareDose [facility]: Dose Right [facility]: Teradose 4D [facility]: [employer] RADIATION DOSE: CT Rad equipment meets quality standard of care and radiation dose reduction techniq ues were employed. CTDIvol: 53.2 mGy. DLP: 1017 mGy-cm. mGy. LIMITATIONS: None. FINDINGS: VENTRICLES: Normal size and contour. CEREBRUM: Mild cortical atrophy. No masses. No hemorrhage. No midline shift. No evidence for acut e infarction. Few scattered areas of low density in the white matter most likely chronic small vessel ischemic changes. CEREBELLUM: No masses. No hemorrhage. No alteration of density. No evidence for acute infarction. EXTRAAXIAL SPACES: No fluid collections. No masses. ORBITS AND GLOBE: No intra- or extraconal masses. Normal contour of globe without masses. CALVARIUM: No fracture. PARANASAL SINUSES: No fluid or mucosal thickening. SOFT TISSUES: No mass or hematoma. OTHER: No other significant finding. IMPRESSION: MILD CHRONIC MICROVASCULAR ISCHEMIA. NO ACUTE IMAGING FINDINGS IN THE BRAIN. EVIDENCE OF ACUTE STROKE: NO. COMMENT: Quality ID # [id number]: Final reports with documentation of one or more dose reduction techniques (e.g., Automated exposure control, adjustment of the mA and/or kV according to patient size, use of iterative reconstruction technique) TECHNICAL DOCUMENTATION: JOB ID: [id number] [employer]- All Rights Reserved Reading location - IP/workstation name: [email or web address]
[2018-06-06] MEDS ORDERED: HEPARIN SOD (PORCINE) 1,000 UNIT/ML 10 ML VIAL IV ONE (14:40)
[2018-06-06] MEDS ORDERED: ASPIRIN 81 MG TABLET, CHEWABLE PO ONE (14:47)
[2018-06-06 14:58] LABS: PROTHROMBIN TIME 13.7 SEC (11.4-15.4)
[2018-06-06 14:59] LABS: PARTIAL THROMBOPLASTIN TIME 33.7 SEC (23.5-35.8)
[2018-06-06] MEDS ORDERED: HEPARIN SODIUM,PORCINE/D5W 25,000 UNIT/250 ML RTUINJ IV ONE (15:54)
[2018-06-06] MEDS ORDERED: MORPHINE SULFATE 10 MG/ML INJ IV PRN (16:16)
[2018-06-06] MEDS ORDERED: NITROGLYCERIN 0.4 MG/TAB 25 TAB/BOTTLE SL PRN (16:16)
[2018-06-06] MEDS ORDERED: ONDANSETRON HCL INJ/PF 4 MG/2 ML SDV IV PRN (16:16)
[2018-06-06] MEDS ORDERED: HEPARIN SODIUM,PORCINE/D5W 25,000 UNIT/250 ML RTUINJ IV PRN (16:24)
[2018-06-06 16:48] LABS: URINE AMPHETAMINES SCREEN NEGATIVE; URINE BARBITURATES SCREEN NEGATIVE; URINE BENZODIAZEPINES SCREEN NEGATIVE; URINE COCAINE SCREEN NEGATIVE; URINE MARIJUANA (THC) SCREEN NEGATIVE; URINE METHADONE SCREEN NEGATIVE; URINE PHENCYCLIDINE SCREEN NEGATIVE
[2018-06-06] MEDS ORDERED: HEPARIN SOD (PORCINE) 1,000 UNIT/ML 10 ML VIAL IV PRN (17:41)
--- NOTE | 2018-06-06 18:33 | PDOC H&P ---
History of Present Illness Admission Date/PCP: 06/06/18 15:53 RUBI AGUIAR MD Patient complains of: Frequent falls, weakness, confusion History of Present Illness: BHUPINDER Walsh LADUE is a 77 year old female with a limited past medical history secondary to the patient's mental status; she is known to have hypertension, asthma, hyperlipidemia, and GERD who presented to the emergency department by EMS today following APS referral to the home. The patient has had multiple falls; she reports this has been ongoing for several months to years. She does endorse approximately 2weeks of increased confusion. She denies recent illnesses. She denies headaches, dizziness, chest pain, palpitations, orthopnea , dyspnea, abdominal pain, nausea vomiting and diarrhea. Evaluation in the emergency department revealed mild leukocytosis (WBCs 12.8), slightly elevated LFTs (direct bilirubin 0.6, AST 54), dehydration with a BUN of 25, creatinine kinase 271, and an elevated troponin to 1.140 associated with an EKG demonstrating deep inverse T waves to the lateral leads. Chest x-ray is benign other than cardiomegaly, head CT revealed mild microvascular changes, and a cervical spine CT was normal. The patient was referred to the hospitalist service for admission and management of non-STEMI. Past Medical History Cardiac Medical History: Reports: Hyperlipidema, Hypertension Denies: Congestive Heart Failure, Coronary Artery Disease, Myocardial Infarction, Pulmonary Embolism Pulmonary Medical History: Reports: Asthma, Bronchitis, Pneumonia Comment Only: Chronic Obstructive Pulmonary Disease (COPD) - States she has not been diagnosed with COPD Neurological Medical History: Denies: Ischemic CVA, Migraine, Seizures Endocrine Medical History: Reports: None Renal/ Medical History: Reports: None Malignancy Medical History: Reports: None GI Medical History: Reports: Gastroesophageal Reflux Disease, Hiatal Hernia Denies: Hepatitis Musculoskeltal Medical History: Reports: Arthritis Skin Medical History: Reports: None Psychiatric Medical History: Reports: Depression - on occassion Traumatic Medical History: Reports: None Hematology: Reports: Anemia Denies: Sickle Cell Disease Infectious Medical History: Reports: None Past Surgical History Past Surgical History: Reports: Appendectomy, Orthopedic Surgery, Tonsillectomy Denies: Amputation, Hysterectomy, Mastectomy, Pacemaker Social History Information Source: Patient Lives with: Alone Smoking Status: Never Smoker Frequency of Alcohol Use: Social Hx Recreational Drug Use: No Drugs: None Hx Prescription Drug Abuse: No - Advance Directive Resuscitation Status: Do Not Resuscitate Surrogate healthcare decision maker:: The patient's son, Bradly Her. Family History Family History: Reviewed & Not Pertinent, DM, Hypertension, Malignancy Parental Family History Reviewed: Yes Children Family History Reviewed: Yes Sibling(s) Family History Reviewed.: Yes Medication/Allergy Allergies/Adverse Reactions: latex [Latex] Allergy (Intermediate, Verified 03/21/18 15:52) ITCHING levofloxacin [From Levaquin] Allergy (Unknown, Verified 03/21/18 15:52) aspirin [Aspirin] Adverse Reaction (Mild, Verified 03/21/18 15:52) Thins blood too much Penicillins Adverse Reaction (Mild, Verified 03/21/18 15:52) Yeast infections ibuprofen [From Motrin] Adverse Reaction (Verified 03/21/18 15:52) Review of Systems Constitutional: PRESENT: weakness. ABSENT: chills, fever(s), headache(s), weight gain, weight loss Eyes: ABSENT: visual disturbances Ears: ABSENT: hearing changes Cardiovascular: ABSENT: chest pain, dyspnea on exertion, edema, orthropnea, palpitations Respiratory: ABSENT: cough, hemoptysis Gastrointestinal: ABSENT: abdominal pain, constipation, diarrhea, hematemesis, hematochezia, nausea, vomiting Genitourinary: ABSENT: dysuria, hematuria Musculoskeletal: ABSENT: joint swelling Integumentary: ABSENT: rash, wounds Neurological: PRESENT: confusion, frequent falls, weakness. ABSENT: abnormal gait, abnormal speech, dizziness, focal weakness, syncope Psychiatric: ABSENT: anxiety, depression, homidical ideation, suicidal ideation Endocrine: ABSENT: cold intolerance, heat intolerance, polydipsia, polyuria Hematologic/Lymphatic: ABSENT: easy bleeding, easy bruising Physical Exam Vital Signs: Temp Pulse Resp BP Pulse Ox 98.3 F 101 H 19 113/81 98 06/06/18 13:42 06/06/18 13:42 06/06/18 17:01 06/06/18 17:00 06/06/18 17:01 General appearance: PRESENT: no acute distress, well-developed, well-nourished Head exam: PRESENT: normocephalic, other - Ecchymosis to left forehead; slight abrasion Eye exam: PRESENT: conjunctiva pink, EOMI, PERRLA. ABSENT: scleral icterus Ear exam: PRESENT: normal external ear exam Mouth exam: PRESENT: moist, tongue midline Neck exam: ABSENT: carotid bruit, JVD, lymphadenopathy, thyromegaly Respiratory exam: PRESENT: clear to auscultation candelario, symmetrical, unlabored. ABSENT: rales, rhonchi, wheezes Cardiovascular exam: PRESENT: RRR, +S1, +S2. ABSENT: diastolic murmur, rubs, systolic murmur Pulses: PRESENT: normal dorsalis pedis pul Vascular exam: PRESENT: normal capillary refill GI/Abdominal exam: PRESENT: normal bowel sounds, soft. ABSENT: distended, guarding, mass, organolmegaly, rebound, tenderness Rectal exam: PRESENT: deferred Extremities exam: PRESENT: full ROM. ABSENT: calf tenderness, clubbing, pedal edema Musculoskeletal exam: PRESENT: tenderness - Lower back Neurological exam: PRESENT: alert, awake, oriented to person, oriented to place , oriented to time, oriented to situation, CN II-XII grossly intact, other - Alert oriented x4, slight intermittent confusion noted. Self corrects.. ABSENT : motor sensory deficit Psychiatric exam: PRESENT: appropriate affect, normal mood. ABSENT: homicidal ideation, suicidal ideation Skin exam: PRESENT: dry, warm, other - Ecchymosis to left lateral forehead, scattered bruising to extremities.. ABSENT: cyanosis, rash Results Laboratory Results: 06/06/18 17:23 Ammonia < 8.7 L Impressions: Chest X-Ray 06/06/18 13:36 IMPRESSION: Cardiomegaly with no heather pulmonary edema. Hiatal hernia. Head CT 06/06/18 13:37 IMPRESSION: MILD CHRONIC MICROVASCULAR ISCHEMIA. NO ACUTE IMAGING FINDINGS IN THE BRAIN. EVIDENCE OF ACUTE STROKE: NO. Cervical Spine CT 06/06/18 13:47 IMPRESSION: NO ACUTE OR SIGNIFICANT FINDINGS IN THE CERVICAL SPINE. Assessment & Plan - Diagnosis (1) NSTEMI (non-ST elevated myocardial infarction) Is this a current diagnosis for this admission?: Yes Plan: The patient was admitted for generalized weakness, frequent falls, and increased confusion times 2 weeks per self report. Evluation emergency department revealed an elevated troponin to 1.14 and EKG with deep inverted T waves to the lateral leads. The patient was provided full dose aspirin and started on a heparin drip by the ED provider. The patient is admitted to the telemetry floor. We will continue the heparin drip. Continue daily aspirin and statin therapy. We will assess lipid panel and A1c with morning labs for risk stratification. We will trend troponins. We will tentatively plan for stress testing in the a.m.; alternately consult cardiology for evaluation for potential cardiac catheterization. (2) Hypertension Is this a current diagnosis for this admission?: Yes Plan: The patient is normotensive at present. She does endorse a history of hypertension. Will resume home medications once reconciled. Cardiac diet. (3) Hyperlipidemia Is this a current diagnosis for this admission?: Yes Plan: Will check lipid panel with a.m. labs. Daily statin therapy. Cardiac diet. (4) Gastroesophageal reflux Qualifiers: Esophagitis presence: without esophagitis Qualified Code(s): K21.9 - Gastro -esophageal reflux disease without esophagitis Plan: Pepcid twice daily. (5) Frequent falls Is this a current diagnosis for this admission?: Yes Plan: The patient endorses a several months of falls; more frequently over the last 2 weeks. Possibly related to alcohol intake. She is noted to have ecchymosis to her forehead and scattered to her limbs bilaterally. Will correct dehydration. Assess for orthostatic hypotension. PT/OT evaluation. Fall precautions. Discharge planning is consulted; patient was referred to the emergency department by APS. (6) Alcohol drinker Is this a current diagnosis for this admission?: Yes Plan: The patient does endorse alcohol intake; she does not specify her daily use. However she does confirm that she drinks at least one alcohol drink most nights of the week. LFTs are mildly elevated. Serum alcohol is negative. Urine drug screen is positive for opiates only; did receive morphine by ED provider. The patient is empirically started on multivitamin with iron, thiamine, and folate supplements. We will monitor closely for evidence of withdrawal and initiate scheduled benzodiazepines as necessary. Fall precautions. - Time Time Spent: 50 to 70 Minutes Medications reviewed and adjusted accordingly: Yes Anticipated discharge: Home - Home versus SNF for short-term rehabilitation. Within: within 72 hours - Inpatient Certification Based on my medical assessment, after consideration of the patient's comorbidities, presenting symptoms, or acuity I expect that the services needed warrant INPATIENT care.: Yes I certify that my determination is in accordance with my understanding of Medicare's requirements for reasonable and necessary INPATIENT services [42 CFR 412.3e].: Yes Medical Necessity: Failure to Improve With Outpatient Therapy, Need Close Monitoring Due to Risk of Patient Decompensation, Need For Continuous Telemetry Monitoring
--- NOTE | 2018-06-06 20:57 | EKG REPORT ---
SEVERITY:- ABNORMAL ECG - SINUS RHYTHM MULTIPLE ATRIAL PREMATURE COMPLEXES BORDERLINE LEFT AXIS DEVIATION ABNRM R PROG, CONSIDER ASMI OR LEAD PLACEMENT ABNORMAL T, PROBABLE ISCHEMIA, ANT-LAT LEADS BORDERLINE PROLONGED QT INTERVAL : Confirmed by: Peg Trujillo MD 06-Jun-2018 20:55:59
[2018-06-06] MEDS: ATORVASTATIN CALCIUM 20 MG TABLET PO SCH (21:37)
[2018-06-06] MEDS: FAMOTIDINE 20 MG TABLET PO SCH (21:37)
[2018-06-06] MEDS: NORMAL SALINE 1000 ML 1,000 ML IV PRN (21:50)
[2018-06-07] MEDS: NORMAL SALINE 1000 ML 1,000 ML IV PRN ×2 (06:38→17:34)
[2018-06-07 07:02] LABS: HEMATOCRIT 40.8 % (36.0-47.0); HEMOGLOBIN 13.7 g/dL (12.0-15.5); MEAN CORPUSCULAR HEMOGLOBIN 27.5 pg (27.0-33.4); MEAN CORPUSCULAR HGB CONC 33.6 g/dL (32.0-36.0); MEAN CORPUSCULAR VOLUME 82 fl (80-97); PLATELET COUNT 275 10^3/uL (150-450); RED BLOOD COUNT 4.99 10^6/uL (3.72-5.28); RED CELL DISTRIBUTION WIDTH 13.8 % (11.5-14.0); WHITE BLOOD COUNT 9.5 10^3/uL (4.0-10.5)
[2018-06-07 07:22] LABS: ANION GAP 7 (5-19); BLOOD UREA NITROGEN 19 mg/dL (7-20); CALCIUM 8.2 mg/dL (8.4-10.2); CARBON DIOXIDE 27 mmol/L (22-30); CHLORIDE 103 mmol/L (98-107); CHOLESTEROL 115.15 mg/dL (0-200); GLUCOSE 100 mg/dL (75-110); POTASSIUM 3.5 mmol/L (3.6-5.0); SODIUM 136.8 mmol/L (137-145); TRIGLYCERIDES 138 mg/dL (<150)
[2018-06-07 07:33] LABS: DIRECT LDL 56 mg/dL (<100)
[2018-06-07] MEDS: FAMOTIDINE 20 MG TABLET PO SCH ×2 (09:13→21:09)
[2018-06-07] MEDS: DOCUSATE SODIUM 100 MG CAPSULE PO SCH (09:13)
[2018-06-07] MEDS: ASPIRIN 81 MG TABLET, ENT COATED PO SCH (09:14)
[2018-06-07] MEDS: THIAMINE HCL 100 MG TABLET PO SCH (09:14)
[2018-06-07] MEDS: MULTIVITAMINS W-IRON TABLET, CHEWABLE PO SCH (09:14)
[2018-06-07] MEDS: FOLIC ACID 1 MG TABLET PO SCH (09:14)
[2018-06-07] MEDS: MAG HYDROX/AL HYDROX/SIMETH SUSP 30 ML UDCUP PO PRN (10:29)
[2018-06-07] MEDS ORDERED: ACETAMINOPHEN 325 MG TABLET PO PRN (11:38)
[2018-06-07] MEDS: ALBUTEROL SULFATE 0.083% NEB 2.5 MG/3 ML AMPUL NEB PRN (17:08)
[2018-06-07] MEDS ORDERED: TRAMADOL HCL 50 MG TABLET PO PRN (17:11)
--- NOTE | 2018-06-07 17:21 | PDOC PROGRESS REPORT ---
Subjective Progress Note for:: 06/07/18 Subjective:: The patient is a 77 year old female with a limited past medical history secondary to the patient's mental status; she is known to have hypertension, asthma, hyperlipidemia, and GERD who was admitted 06/06/18 for non-STEMI. The patient is seen on morning rounds. She is found resting in bed comfortably on supplemental oxygen at 2 L/min. The patient states that she is not home O2 dependent but she did feel short of breath overnight and requested oxygen. She tells me that she takes an a daily inhaler to prevent breathing trouble. She tells me that she was able to ambulate with physical therapy this morning and feels like she did well. She denies fever, chills, chest pain, palpitations, orthopnea, dyspnea at present, abdominal pain, constipation, nausea and vomiting. She does endorse a slight frontal headache which she relates to her recent fall. Overall, she is feeling well and has no new questions or concerns today. No concerns per nursing. Reason For Visit: NON STEMI Physical Exam Vital Signs: Temp Pulse Resp BP Pulse Ox 98.3 F 86 18 137/80 H 99 06/07/18 11:41 06/07/18 14:25 06/07/18 12:45 06/07/18 12:45 06/07/18 12:45 Intake & Output 06/06/18 06/07/18 06/08/18 06:59 06:59 06:59 Intake Total 2120 1512 Balance 2120 1512 Weight 59.5 kg 59.5 kg General appearance: PRESENT: no acute distress, cooperative, well-developed, well-nourished - Overweight Head exam: PRESENT: normocephalic, other - Ecchymosis and small abrasion to forehead Eye exam: PRESENT: conjunctiva pink, EOMI, PERRLA. ABSENT: scleral icterus Ear exam: PRESENT: normal external ear exam Mouth exam: PRESENT: moist, tongue midline Neck exam: ABSENT: carotid bruit, JVD, lymphadenopathy, thyromegaly Respiratory exam: PRESENT: clear to auscultation candelario, symmetrical, unlabored. ABSENT: rales, rhonchi, wheezes Cardiovascular exam: PRESENT: RRR, +S1, +S2. ABSENT: diastolic murmur, rubs, systolic murmur Pulses: PRESENT: normal dorsalis pedis pul Vascular exam: PRESENT: normal capillary refill GI/Abdominal exam: PRESENT: normal bowel sounds, soft. ABSENT: distended, guarding, mass, organolmegaly, rebound, tenderness Rectal exam: PRESENT: deferred Extremities exam: PRESENT: full ROM. ABSENT: calf tenderness, clubbing, pedal edema Neurological exam: PRESENT: alert, awake, oriented to person, oriented to place , oriented to time, oriented to situation, CN II-XII grossly intact. ABSENT: motor sensory deficit Psychiatric exam: PRESENT: appropriate affect, normal mood. ABSENT: homicidal ideation, suicidal ideation Skin exam: PRESENT: dry, intact, warm, other - Scattered ecchymosis to all extremities. ABSENT: cyanosis, rash Results Laboratory Results: 06/07/18 06:52 06/07/18 06:52 06/06/18 06/07/18 06/07/18 17:23 06:52 06:52 WBC 9.5 RBC 4.99 Hgb 13.7 Hct 40.8 MCV 82 MCH 27.5 MCHC 33.6 RDW 13.8 Plt Count 275 Sodium 136.8 L Potassium 3.5 L Chloride 103 Carbon Dioxide 27 Anion Gap 7 BUN 19 Creatinine 0.85 Est GFR ( Amer) > 60 Est GFR (Non-Af Amer) > 60 Glucose 100 Calcium 8.2 L Ammonia < 8.7 L Triglycerides 138 Cholesterol 115.15 LDL Cholesterol Direct 56 VLDL Cholesterol 28.0 HDL Cholesterol 32 L 06/06/18 06/07/18 19:30 01:57 Troponin I 1.010 0.754 Impressions: Chest X-Ray 06/06/18 13:36 IMPRESSION: Cardiomegaly with no heather pulmonary edema. Hiatal hernia. Head CT 06/06/18 13:37 IMPRESSION: MILD CHRONIC MICROVASCULAR ISCHEMIA. NO ACUTE IMAGING FINDINGS IN THE BRAIN. EVIDENCE OF ACUTE STROKE: NO. Cervical Spine CT 06/06/18 13:47 IMPRESSION: NO ACUTE OR SIGNIFICANT FINDINGS IN THE CERVICAL SPINE. Assessment & Plan - Diagnosis (1) NSTEMI (non-ST elevated myocardial infarction) Is this a current diagnosis for this admission?: Yes Plan: The patient was admitted for generalized weakness, frequent falls, and increased confusion times 2 weeks per self report. Evluation emergency department revealed an elevated troponin to 1.14 and EKG with deep inverted T waves to the lateral leads. The patient was provided full dose aspirin and started on a heparin drip by the ED provider. Lipid panel is acceptable; HDL 32, LDL 56, triglycerides 138. A1c 5.3% Troponins are trending down 1.14--> 1.010--> 0.754 The patient is admitted to the telemetry floor. We will continue the heparin drip for total of 48 hours. Cardiology has rescheduled stress test for Saturday. (2) Hypertension Is this a current diagnosis for this admission?: Yes Plan: The patient is normotensive at present. She does endorse a history of hypertension. Have resumed the patient's home dose losartan. Cardiac diet. (3) Hyperlipidemia Is this a current diagnosis for this admission?: Yes Plan: Lipid panel reviewed; low HDL, otherwise appropriate. Continue daily statin therapy. Cardiac diet. (4) Gastroesophageal reflux Qualifiers: Esophagitis presence: without esophagitis Qualified Code(s): K21.9 - Gastro -esophageal reflux disease without esophagitis Is this a current diagnosis for this admission?: Yes Plan: Pepcid twice daily. (5) Frequent falls Is this a current diagnosis for this admission?: Yes Plan: The patient endorses a several months of falls; more frequently over the last 2 weeks. Possibly related to alcohol intake. She is noted to have ecchymosis to her forehead and scattered to her limbs bilaterally. Will correct dehydration. Assess for orthostatic hypotension. PT/OT evaluation. Fall precautions. Discharge planning is consulted; patient was referred to the emergency department by APS. (6) Alcohol drinker Is this a current diagnosis for this admission?: Yes Plan: The patient does endorse alcohol intake; she does not specify her daily use. However she does confirm that she drinks at least one alcohol drink most nights of the week. LFTs are mildly elevated. Serum alcohol is negative. Urine drug screen is positive for opiates only; did receive morphine by ED provider. The patient is empirically started on multivitamin with iron, thiamine, and folate supplements. We will monitor closely for evidence of withdrawal and initiate scheduled benzodiazepines as necessary. Fall precautions. - Time Time Spent with patient: 15-24 minutes Medications reviewed and adjusted accordingly: Yes Anticipated discharge: Home Within: within 72 hours
[2018-06-07] MEDS: NYSTATIN CREAM 15 GM TP SCH (17:34)
[2018-06-07] MEDS: MONTELUKAST SODIUM 10 MG TABLET PO SCH (17:34)
[2018-06-07] MEDS: ATORVASTATIN CALCIUM 20 MG TABLET PO SCH (21:09)
[2018-06-07] MEDS: FLUTICASONE/SALMETEROL DISKUS 250-50 MCG/DOSE IH SCH (21:13)
[2018-06-08] MEDS: ALBUTEROL SULFATE 0.083% NEB 2.5 MG/3 ML AMPUL NEB PRN ×2 (02:30→08:38)
[2018-06-08] MEDS: NORMAL SALINE 1000 ML 1,000 ML IV PRN (07:05)
[2018-06-08 07:52] LABS: HEMATOCRIT 39.2 % (36.0-47.0); HEMOGLOBIN 13.3 g/dL (12.0-15.5); MEAN CORPUSCULAR HEMOGLOBIN 27.8 pg (27.0-33.4); MEAN CORPUSCULAR VOLUME 82 fl (80-97); PLATELET COUNT 252 10^3/uL (150-450); RED BLOOD COUNT 4.79 10^6/uL (3.72-5.28); RED CELL DISTRIBUTION WIDTH 13.9 % (11.5-14.0); WHITE BLOOD COUNT 7.6 10^3/uL (4.0-10.5)
[2018-06-08 08:19] LABS: ANION GAP 5 (5-19); BLOOD UREA NITROGEN 12 mg/dL (7-20); CALCIUM 8.3 mg/dL (8.4-10.2); CARBON DIOXIDE 28 mmol/L (22-30); CHLORIDE 105 mmol/L (98-107); GLUCOSE 121 mg/dL (75-110); POTASSIUM 3.4 mmol/L (3.6-5.0); SODIUM 138.2 mmol/L (137-145)
[2018-06-08] MEDS ORDERED: POTASSIUM CHLORIDE 10 MEQ CAPSULE.ER PO ONE (10:00)
[2018-06-08] MEDS: LOSARTAN POTASSIUM 50 MG TABLET PO SCH (10:25)
[2018-06-08] MEDS: THIAMINE HCL 100 MG TABLET PO SCH (10:25)
[2018-06-08] MEDS: FLUTICASONE NASAL SPRAY 50 MCG/SPRY 120 SPRAY/16 GM NASL SCH (10:26)
[2018-06-08] MEDS: CETIRIZINE 10 MG TABLET PO SCH (10:26)
[2018-06-08] MEDS: FOLIC ACID 1 MG TABLET PO SCH (10:26)
[2018-06-08] MEDS: ASPIRIN 81 MG TABLET, ENT COATED PO SCH (10:26)
[2018-06-08] MEDS: FLUTICASONE/SALMETEROL DISKUS 250-50 MCG/DOSE IH SCH ×2 (10:26→17:47)
[2018-06-08] MEDS: DOCUSATE SODIUM 100 MG CAPSULE PO SCH (10:26)
[2018-06-08] MEDS: FAMOTIDINE 20 MG TABLET PO SCH ×2 (10:26→21:07)
[2018-06-08] MEDS: MULTIVITAMINS W-IRON TABLET, CHEWABLE PO SCH (10:26)
[2018-06-08] MEDS: NYSTATIN CREAM 15 GM TP SCH ×3 (10:27→17:48)
[2018-06-08] MEDS ORDERED: HYDRALAZINE HCL INJ/PF 20 MG/1 ML SDV IV PRN (11:24)
[2018-06-08] MEDS ORDERED: NA PHOS,M-B/NA PHOS,DI-BA (ADULT) 133 ML ENEMA PR ONE ×2 (12:00→16:30)
[2018-06-08] MEDS ORDERED: CARVEDILOL 3.125 MG TABLET PO ONE (12:30)
[2018-06-08 13:23] LABS: APPEARANCE,URINE SLIGHTLY-CLOUDY; BILIRUBIN,URINE NEGATIVE (NEGATIVE); COLOR,URINE YELLOW; GLUCOSE, URINE NEGATIVE (NEGATIVE); KETONES,URINE NEGATIVE (NEGATIVE); LEUKOCYTE ESTERASE,URINE NEGATIVE (NEGATIVE); NITRITE,URINE NEGATIVE (NEGATIVE); PROTEIN,URINE NEGATIVE (NEGATIVE); URINE SPECIFIC GRAVITY 1.004; UROBILINOGEN,URINE NEGATIVE mg/dL (<2.0)
[2018-06-08] MEDS: MAG HYDROX/AL HYDROX/SIMETH SUSP 30 ML UDCUP PO PRN ×2 (16:22→20:57)
--- NOTE | 2018-06-08 16:33 | PDOC PROGRESS REPORT ---
Subjective Progress Note for:: 06/08/18 Subjective:: The patient is a 77 year old female with a limited past medical history secondary to the patient's mental status; she is known to have hypertension, asthma, hyperlipidemia, and GERD who was admitted 06/06/18 for non-STEMI. The patient is seen on morning rounds. She is found sitting up to the recliner comfortably on room air. The patient states that she is not home O2 dependent but and does not require maintenance medications for asthma or COPD, but does report that she felt short of breath last night until she was provided a nebulizer treatment and placed on oxygen. She states that she has had similar symptoms like this in the past related to MSG. She also reports urinary frequency and incontinence today; relates this to her pessary having fallen out today. She states that she was able to successfully place it back in. She denies fever, chills, back pain, suprapubic pain, hematuria and dysuria. She further denies chest pain, palpitations, orthopnea, dyspnea at present, abdominal pain, constipation, nausea and vomiting. Overall, she is feeling well and has no new questions or concerns today. Nursing reports frequent urination, otherwise, are concerned that the patient may not be safe to live independently due to her intermittent confusion, forgetfulness, and frequency of needing assistance. Reason For Visit: NON STEMI Physical Exam Vital Signs: Temp Pulse Resp BP Pulse Ox 97.8 F 104 H 20 147/96 H 96 06/08/18 12:00 06/08/18 14:00 06/08/18 12:00 06/08/18 12:00 06/08/18 14:01 Pulse Oximeter Nocturnal Start: 06/08/18 11: 13 Freq: Q Status: Active Document 06/08/18 12:00 TPO (Rec: 06/08/18 12:24 TPO [email or web address]) Nocturnal Pulse Oximetry Equipment Usage Initial Set Up Nocturnal Spo2 Charge Charge Now Continuous Pulse Oximeter Set Up Yes Continuous SpO2 Discontinued No Continuous SpO2 Machine # 3 Intake & Output 06/07/18 06/08/18 06/09/18 06:59 06:59 06:59 Intake Total 2120 3378 1000 Balance 0 3378 1000 Weight 59.5 kg 59.2 kg General appearance: PRESENT: no acute distress, well-developed, well-nourished - Overweight Head exam: PRESENT: atraumatic, normocephalic Eye exam: PRESENT: conjunctiva pink, EOMI, PERRLA. ABSENT: scleral icterus Ear exam: PRESENT: normal external ear exam Mouth exam: PRESENT: moist, tongue midline Teeth exam: PRESENT: poor dentation Neck exam: ABSENT: carotid bruit, JVD, lymphadenopathy, thyromegaly Respiratory exam: PRESENT: clear to auscultation candelario, symmetrical, unlabored. ABSENT: rales, rhonchi, wheezes Cardiovascular exam: PRESENT: RRR, +S1, +S2. ABSENT: diastolic murmur, rubs, systolic murmur Pulses: PRESENT: normal dorsalis pedis pul Vascular exam: PRESENT: normal capillary refill GI/Abdominal exam: PRESENT: normal bowel sounds, soft. ABSENT: distended, guarding, mass, organolmegaly, rebound, tenderness Rectal exam: PRESENT: deferred Extremities exam: PRESENT: full ROM. ABSENT: calf tenderness, clubbing, pedal edema Neurological exam: PRESENT: alert, awake, oriented to person, oriented to place , oriented to time, oriented to situation, CN II-XII grossly intact. ABSENT: motor sensory deficit Psychiatric exam: PRESENT: appropriate affect, normal mood - Eccentric. ABSENT : homicidal ideation, suicidal ideation Skin exam: PRESENT: dry, intact, warm. ABSENT: cyanosis, rash Results Laboratory Results: 06/08/18 07:25 06/08/18 07:25 06/08/18 06/08/18 06/08/18 07:25 07:25 07:25 WBC 7.6 RBC 4.79 Hgb 13.3 Hct 39.2 MCV 82 MCH 27.8 MCHC 34.0 RDW 13.9 Plt Count 252 Sodium 138.2 Potassium 3.4 L Chloride 105 Carbon Dioxide 28 Anion Gap 5 BUN 12 Creatinine 0.68 Est GFR ( Amer) > 60 Est GFR (Non-Af Amer) > 60 Glucose 121 H Calcium 8.3 L TSH 2.16 Urine Color Urine Appearance Urine pH Ur Specific [place] Urine Protein Urine Glucose (UA) Urine Ketones Urine Blood Urine Nitrite Ur Leukocyte Esterase Urine WBC (Auto) Urine RBC (Auto) 06/08/18 12:31 WBC RBC Hgb Hct MCV MCH MCHC RDW Plt Count Sodium Potassium Chloride Carbon Dioxide Anion Gap BUN Creatinine Est GFR ( Amer) Est GFR (Non-Af Amer) Glucose Calcium TSH Urine Color YELLOW Urine Appearance SLIGHTLY-CLOUDY Urine pH 6.0 Ur Specific [place] 1.004 Urine Protein NEGATIVE Urine Glucose (UA) NEGATIVE Urine Ketones NEGATIVE Urine Blood NEGATIVE Urine Nitrite NEGATIVE Ur Leukocyte Esterase NEGATIVE Urine WBC (Auto) 1 Urine RBC (Auto) 0 06/06/18 06/07/18 06/08/18 19:30 01:57 07:25 Troponin I 1.010 0.754 0.215 Impressions: Chest X-Ray 06/06/18 13:36 IMPRESSION: Cardiomegaly with no heather pulmonary edema. Hiatal hernia. Head CT 06/06/18 13:37 IMPRESSION: MILD CHRONIC MICROVASCULAR ISCHEMIA. NO ACUTE IMAGING FINDINGS IN THE BRAIN. EVIDENCE OF ACUTE STROKE: NO. Cervical Spine CT 06/06/18 13:47 IMPRESSION: NO ACUTE OR SIGNIFICANT FINDINGS IN THE CERVICAL SPINE. Assessment & Plan - Diagnosis (1) NSTEMI (non-ST elevated myocardial infarction) Is this a current diagnosis for this admission?: Yes Plan: The patient was admitted for generalized weakness, frequent falls, and increased confusion x 2 weeks per self report. Evaluation emergency department revealed an elevated troponin to 1.14 and EKG with deep inverted T waves to the lateral leads. The patient was provided full dose aspirin and started on a heparin drip by the ED provider. Lipid panel is acceptable; HDL 32, LDL 56, triglycerides 138. A1c 5.3% Troponins are trending down 1.14--> 1.010--> 0.754--> 0.215 The patient is admitted to the telemetry floor. Heparin drip was continued for 48 hours; now transitioned to heparin subcu for DVT prophylaxis. Continue daily statin and aspirin therapy. Cardiology has rescheduled stress test for Saturday. (2) Hypertension Is this a current diagnosis for this admission?: Yes Plan: Mildly hypertensive. She does endorse a history of hypertension. Have resumed the patient's home dose losartan. Have initiated carvedilol 3.125 mg every 12 hours. Cardiac diet. (3) Hyperlipidemia Is this a current diagnosis for this admission?: Yes Plan: Lipid panel reviewed; low HDL, otherwise appropriate. Continue daily statin therapy. Cardiac diet. (4) Gastroesophageal reflux Qualifiers: Esophagitis presence: without esophagitis Qualified Code(s): K21.9 - Gastro -esophageal reflux disease without esophagitis Is this a current diagnosis for this admission?: Yes Plan: Pepcid twice daily. (5) Frequent falls Is this a current diagnosis for this admission?: Yes Plan: The patient endorses a several months of falls; more frequently over the last 2 weeks. Possibly related to alcohol intake. She is noted to have ecchymosis to her forehead and scattered to her limbs bilaterally. Will correct dehydration. Assess for orthostatic hypotension. PT/OT evaluation. Fall precautions. Discharge planning is consulted; patient was referred to the emergency department by APS. (6) Alcohol drinker Is this a current diagnosis for this admission?: Yes Plan: The patient does endorse alcohol intake; she does not specify her daily use. However she does confirm that she drinks at least one alcohol drink most nights of the week. LFTs are mildly elevated. Serum alcohol is negative. Urine drug screen is positive for opiates only; did receive morphine by ED provider. The patient is empirically started on multivitamin with iron, thiamine, and folate supplements. We will monitor closely for evidence of withdrawal and initiate scheduled benzodiazepines as necessary. Fall precautions. (7) Urinary frequency Is this a current diagnosis for this admission?: Yes Plan: Likely secondary to IV fluids and complicated by stress incontinence related to pelvic organ prolapse is. The patient reports that she was able to successfully replace her pessary today. Urinalysis was negative for UTI. IV fluids have been discontinued. We will start Ditropan 3 times daily; would recommend Myrbetriq at discharge ( unfortunately not on formulary). - Time Time Spent with patient: 25-34 minutes Medications reviewed and adjusted accordingly: Yes Anticipated discharge: Home Within: within 48 hours
[2018-06-08] MEDS ORDERED: BENZONATATE 100 MG CAPSULE PO PRN (16:57)
[2018-06-08] MEDS: MONTELUKAST SODIUM 10 MG TABLET PO SCH (17:47)
[2018-06-08] MEDS: OLOPATADINE HCL 0.1% OPH SOLN 5 ML OU SCH (17:47)
[2018-06-08] MEDS: OXYBUTYNIN CHLORIDE 5 MG TABLET PO SCH (17:47)
[2018-06-08] MEDS: HEPARIN SOD (PORCINE) 5,000 UNIT/ML 1 ML SYRINGE SUBCUT SCH (21:06)
[2018-06-08] MEDS: BUSPIRONE HCL 10 MG TABLET PO SCH (21:06)
[2018-06-08] MEDS: ATORVASTATIN CALCIUM 20 MG TABLET PO SCH (21:07)
[2018-06-08] MEDS: CARVEDILOL 3.125 MG TABLET PO SCH (21:13)
[2018-06-09] MEDS: HEPARIN SOD (PORCINE) 5,000 UNIT/ML 1 ML SYRINGE SUBCUT SCH ×2 (05:33→13:53)
[2018-06-09] MEDS: THIAMINE HCL 100 MG TABLET PO SCH (10:53)
[2018-06-09] MEDS: FLUTICASONE NASAL SPRAY 50 MCG/SPRY 120 SPRAY/16 GM NASL SCH (10:53)
[2018-06-09] MEDS: OLOPATADINE HCL 0.1% OPH SOLN 5 ML OU SCH ×2 (10:53→17:02)
[2018-06-09] MEDS: LOSARTAN POTASSIUM 50 MG TABLET PO SCH (10:53)
[2018-06-09] MEDS: FAMOTIDINE 20 MG TABLET PO SCH (10:53)
[2018-06-09] MEDS: BUSPIRONE HCL 10 MG TABLET PO SCH (10:53)
[2018-06-09] MEDS: FLUTICASONE/SALMETEROL DISKUS 250-50 MCG/DOSE IH SCH (10:53)
[2018-06-09] MEDS: FOLIC ACID 1 MG TABLET PO SCH (10:53)
[2018-06-09] MEDS: ASPIRIN 81 MG TABLET, ENT COATED PO SCH (10:53)
[2018-06-09] MEDS: DOCUSATE SODIUM 100 MG CAPSULE PO SCH (10:53)
[2018-06-09] MEDS: MULTIVITAMINS W-IRON TABLET, CHEWABLE PO SCH (10:54)
[2018-06-09] MEDS: CETIRIZINE 10 MG TABLET PO SCH (10:54)
[2018-06-09] MEDS: CARVEDILOL 3.125 MG TABLET PO SCH (10:54)
[2018-06-09] MEDS: NYSTATIN CREAM 15 GM TP SCH ×3 (10:55→17:03)
[2018-06-09] MEDS: OXYBUTYNIN CHLORIDE 5 MG TABLET PO SCH ×2 (13:53→17:02)
[2018-06-09] MEDS ORDERED: REGADENOSON INJ 0.4 MG/5 ML DISP.SYRIN IV ONE (14:25)
[2018-06-09] MEDS ORDERED: ONDANSETRON HCL INJ/PF 4 MG/2 ML SDV IV PRN (16:00)
[2018-06-09] MEDS ORDERED: NITROGLYCERIN 5 MG (0.2 MG/HR) PATCH.TD24 TD SCH (16:30)
[2018-06-09] MEDS: MONTELUKAST SODIUM 10 MG TABLET PO SCH (17:02)
[2018-06-09 17:29] VITALS: BP 132/76
[2018-06-09] MEDS ORDERED: FLUTICASONE/SALMETEROL DISKUS 250-50 MCG/DOSE IH SCH (22:00)
[2018-06-09] MEDS ORDERED: METOPROLOL SUCCINATE 25 MG TAB.SR.24H PO SCH (22:00)
[2018-06-10] MEDS ORDERED: ASPIRIN 81 MG TABLET, ENT COATED PO SCH (10:00)
--- NOTE | 2018-06-10 11:55 | PDOC DISCHARGE SUMMARY ---
General - Admit/Disc Date/PCP Admission Date/Primary Care Provider: 06/06/18 15:53 RUBI AGUIAR MD Discharge Date: 06/09/18 - Discharge Diagnosis (1) NSTEMI (non-ST elevated myocardial infarction) Is this a current diagnosis for this admission?: Yes Summary: The patient was admitted for generalized weakness, frequent falls, and increased confusion x 2 weeks per self report. Evaluation emergency department revealed an elevated troponin to 1.14 and EKG with deep inverted T waves to the lateral leads. The patient was provided full dose aspirin and started on a heparin drip by the ED provider. Lipid panel is acceptable; HDL 32, LDL 56, triglycerides 138. A1c 5.3% Troponins are trending down 1.14--> 1.010--> 0.754--> 0.215--> 0.086 The patient is admitted to the telemetry floor and placedon a Heparin drip. The drip was continued x 48 hours. She was started on daily aspirin and statin therapy. Nuclear stress testing revealed reversible ischemia to the LV apex indicate of introseptal DE. Dr. Huber, retouching operator, discussed with the patient his recommendations for a follow up Cardiac Cath. The patient declined additional testing, stating she "wanted to think about it more." Later the same afternoon, a follow up conversation was had. The patient understood the risks/benefits of both having the procedure and going without. She continued to maintain her desire to be discharged to home with medical management and to discuss the recommendations with her PCP and [facility] at a follow up appointment next week. The patient was placed on Toprol XL 25 mg twice daily and a Nitroglycerin 0.2mg/ hr patch. She was provided prescriptions for ASA, Atorvastatin Toprol XL, and the Nitro- Dur patches. She was instructed to follow up with her PCP and [facility] within 1 week. She was also advised of the importance of returning to the Emergency Department for any new or worsening symptoms. She was discharged to home in stable condition. (2) Hypertension Is this a current diagnosis for this admission?: Yes Summary: Pt blood pressures are acceptable at time of discharge. She is recommended to continue her home dose Losartan and was provided a prescription for Toprol XL 25 mg twice daily. (3) Hyperlipidemia Is this a current diagnosis for this admission?: Yes Summary: Lipid panel was acceptable. Recommend she continue daily statin therapy. (4) Gastroesophageal reflux Is this a current diagnosis for this admission?: Yes Summary: Stable; symptoms were controlled with continued home regimen. (5) Frequent falls Is this a current diagnosis for this admission?: Yes Summary: PT/OT evaluations were completed for recommendations for continued Home Health Physical Therapy after discharge. Arrangements were made by discharge planning. (6) Alcohol drinker Is this a current diagnosis for this admission?: Yes Summary: Recommended she reduce her EtOH intake. Pt was recommended to continue multivitamin with iron, folic acid, and thiamin supplements after discharge. No evidence of withdrawal symptoms during her admission. (7) Urinary frequency Is this a current diagnosis for this admission?: Yes Summary: Urinalysis was negative for UTI. Pt relates symptoms to dislodged pessary; pt was able to replace with improvement of symptoms. Provided a prescription for Myrbetriq on discharge. - Additional Information Resuscitation Status: Do Not Resuscitate Discharge Diet: As Tolerated, Cardiac Discharge Activity: Activity As Tolerated, Balance Activity w/Rest Prescriptions: Aspirin [Ecotrin 81 mg EC Tablet] 81 mg PO DAILY #90 tabec Atorvastatin Calcium [Lipitor 20 mg Tablet] 20 mg PO QHS #30 tablet Folic Acid [Folvite 1 mg Tablet] 1 mg PO DAILY #30 tablet Metoprolol Succinate [Toprol Xl 25 mg Tab.sr] 25 mg PO Q12 #60 tab.sr.24h Mirabegron [Myrbetriq] 25 mg PO DAILY #30 tab.er.24h Nitroglycerin [Nitro-Dur 5 mg (0.2 mg/Hr) Transdermal Patch] 1 each TD DAILY # 30 patch.td24 Thiamine HCl [Thiamine 100 mg Tablet] 100 mg PO DAILY #60 tablet Home Medications: Albuterol Sulfate [Albuterol Sulfate 2.5mg/3 mL] 2.5 mg NEB RTBID 06/06/18 Albuterol Sulfate [Proair HFA] 2 puff IH Q6HP PRN 06/06/18 Calcium Carbonate [Calcium] 600 mg PO DAILY 06/06/18 Cetirizine HCl [Zyrtec 10 mg Tablet] 10 mg PO DAILY 06/06/18 Cholecalciferol (Vitamin D3) [Vitamin D3 2000 unit Tablet] 2,000 unit PO DAILY 06/06/18 Fluticasone Propionate [Flonase Nasal [place] 50 Mcg/[place] 16 gm] 1 spray NASL DAILY 06/06/18 Fluticasone/Salmeterol [Advair 250-50 Diskus 14 Dose/Diskus] 1 puff IH BID 06/06 Gluc/Chnd/Om3/Dha/Epa/Fish/Str [Glucosamine-Chondr Plus Sftgel] 2 cap PO DAILY 06/06/18 Losartan Potassium [Cozaar 50 mg Tablet] 50 mg PO DAILY 06/06/18 Lysine HCl [l-Lysine] 500 mg PO DAILY 06/06/18 Montelukast Sodium [Singulair 10 mg Tablet] 10 mg PO QPM 06/06/18 Nystatin [Mycostatin Ointment 15 gm] 1 applic TOP BID 06/06/18 Olopatadine HCl [Patanol 0.1% Oph Soln 5 ml] 1 drop OU BID 06/06/18 Omeprazole 20 mg PO DAILY 06/06/18 Ranitidine HCl [Zantac 75 mg Tablet] 75 mg PO BID 06/06/18 Simethicone [Gas-X] 125 mg PO PCHS 06/06/18 Tramadol HCl [Ultram 50 mg Tablet] 50 mg PO BIDP PRN 06/06/18 Acetaminophen [Tylenol 325 mg Tablet] 650 mg PO Q4HP PRN tablet 06/09/18 Aspirin [Ecotrin 81 mg EC Tablet] 81 mg PO DAILY #90 tabec 06/09/18 Atorvastatin Calcium [Lipitor 20 mg Tablet] 20 mg PO QHS #30 tablet 06/09/18 Folic Acid [Folvite 1 mg Tablet] 1 mg PO DAILY #30 tablet 06/09/18 Metoprolol Succinate [Toprol Xl 25 mg Tab.sr] 25 mg PO Q12 #60 tab.sr.24h Mirabegron [Myrbetriq] 25 mg PO DAILY #30 tab.er.24h 06/09/18 Multivitamins W-Iron [Flintstones Chewable Multivit W/Fe Tab] 2 tab PO DAILY tab.chew 06/09/18 Nitroglycerin [Nitro-Dur 5 mg (0.2 mg/Hr) Transdermal Patch] 1 each TD DAILY # 30 patch.td24 06/09/18 Thiamine HCl [Thiamine 100 mg Tablet] 100 mg PO DAILY #60 tablet 06/09/18 History of Present Illness History of Present Illness: BHUPINDER A LADUE is a 77 year old female with a limited past medical history secondary to the patient's mental status; she is known to have hypertension, asthma, hyperlipidemia, and GERD who presented to the emergency department by EMS today following APS referral to the home. The patient has had multiple falls; she reports this has been ongoing for several months to years. She does endorse approximately 2weeks of increased confusion. She denies recent illnesses. She denies headaches, dizziness, chest pain, palpitations, orthopnea , dyspnea, abdominal pain, nausea vomiting and diarrhea. Evaluation in the emergency department revealed mild leukocytosis (WBCs 12.8), slightly elevated LFTs (direct bilirubin 0.6, AST 54), dehydration with a BUN of 25, creatinine kinase 271, and an elevated troponin to 1.140 associated with an EKG demonstrating deep inverse T waves to the lateral leads. Chest x-ray is benign other than cardiomegaly, head CT revealed mild microvascular changes, and a cervical spine CT was normal. The patient was referred to the hospitalist service for admission and management of non-STEMI. Physical Exam Vital Signs: Temp Pulse Resp BP Pulse Ox 99.7 F 71 17 132/76 H 91 L 06/09/18 17:25 06/09/18 17:25 06/09/18 17:25 06/09/18 17:25 06/09/18 17:25 Pulse Oximeter Nocturnal Start: 06/08/18 11: 13 Freq: Q Status: Complete Document 06/08/18 22:15 CBR (Rec: 06/08/18 23:03 CBR [id number]) Nocturnal Pulse Oximetry Equipment Usage Equipment in Use Oxygen Delivery Method (includes room Room Air air) O2 Sat by Pulse Oximetry (92-100) 95 Continuous Pulse Oximeter Set Up Yes Continuous SpO2 Discontinued No Continuous SpO2 Machine # 3 Intake & Output 06/09/18 06/10/18 06/11/18 06:59 06:59 06:59 Intake Total 1950 557 Output Total 390 Balance 1560 557 Weight 60.1 kg General appearance: PRESENT: no acute distress, cooperative, well-developed, well-nourished - Overweight Head exam: PRESENT: atraumatic, normocephalic Eye exam: PRESENT: conjunctiva pink, EOMI, PERRLA. ABSENT: scleral icterus Ear exam: PRESENT: normal external ear exam Mouth exam: PRESENT: moist, tongue midline Neck exam: ABSENT: carotid bruit, JVD, lymphadenopathy, thyromegaly Respiratory exam: PRESENT: clear to auscultation candelario, symmetrical, unlabored. ABSENT: rales, rhonchi, wheezes Cardiovascular exam: PRESENT: RRR, +S1, +S2. ABSENT: diastolic murmur, rubs, systolic murmur Pulses: PRESENT: normal dorsalis pedis pul Vascular exam: PRESENT: normal capillary refill GI/Abdominal exam: PRESENT: normal bowel sounds, soft. ABSENT: distended, guarding, mass, organolmegaly, rebound, tenderness Rectal exam: PRESENT: deferred Extremities exam: PRESENT: full ROM. ABSENT: calf tenderness, clubbing, pedal edema Neurological exam: PRESENT: alert, awake, oriented to person, oriented to place , oriented to time, oriented to situation, CN II-XII grossly intact. ABSENT: motor sensory deficit Psychiatric exam: PRESENT: appropriate affect, normal mood. ABSENT: homicidal ideation, suicidal ideation Skin exam: PRESENT: dry, intact, warm. ABSENT: cyanosis, rash Results Laboratory Results: 06/08/18 07:25 06/08/18 07:25 06/06/18 06/07/18 06/08/18 19:30 01:57 07:25 Troponin I 1.010 0.754 0.215 06/09/18 04:49 Troponin I 0.086 Impressions: Chest X-Ray 06/06/18 13:36 IMPRESSION: Cardiomegaly with no heather pulmonary edema. Hiatal hernia. Head CT 06/06/18 13:37 IMPRESSION: MILD CHRONIC MICROVASCULAR ISCHEMIA. NO ACUTE IMAGING FINDINGS IN THE BRAIN. EVIDENCE OF ACUTE STROKE: NO. Cervical Spine CT 06/06/18 13:47 IMPRESSION: NO ACUTE OR SIGNIFICANT FINDINGS IN THE CERVICAL SPINE. Qualifiers - * PATIENT BEING DISCHARGED WITH ANY OF THE FOLLOWING DIAGNOSIS: DE DE Pt being discharged on Aspirin therapy?: Yes DE Pt being discharged on Statins?: Yes DE Pt discharged ACEI/ARBS?: Yes Plan Discharge Plan: Discharge to home; follow up with primary care provider within 1 week. Follow up with Dr. Huber, [facility], within 1-2 weeks. Time Spent: Less than 30 Minutes
--- NOTE | 2018-06-15 14:38 | DRAGON STRESS TEST REPORT ---
Intravenous Lexiscan Cardiolite stress test using single photon emmision computerized tomography. Date of procedure: 06/09/2018. Ordering Provider: Ms. Oralia Bellamy, nurse practitioner. Patient's status: In Patient. Indication: Chest pain and non-ST elevation [place]. Coronary risk factors: Age, hypertension,, dyslipidemia Resting EKG: Sinus Rhythm. LVH with strain pattern. Anterior T changes consistent with ischemia of the anterior wall. Stress EKG: No changes of ischemia. The patient had no chest pain or discomfort, and there were no arrhythmias seen. Reason for termination: Protocol. Conclusions: Normal EKG and hemodynamic response to IV Lexiscan. Nuclear data: At rest the patient was given 10.13 millicuries of technetium 99m sestamibi injected intravenously. As per protocol rest non gated SPECT images were obtained. Subsequently the patient was given intravenous Lexiscan at a dose of 0.4 mg in 5 mL intravenously, followed by flush with normal saline. Subsequently the stress dose of 28.8 millicuries of technetium 99m sestamibi was injected intravenously. As per protocol stress gated images were obtained. Nuclear interpretation: Review of images showed that there was a perfusion defect in the LV apical segments of moderate intensity, which in the stress images, which reverses in the rest images show normal perfusion in this area. This area of the LV apical segments is normal motion contraction and thickening by gated study. There is a perfusion defect in both the rest and stress imaging involving the inferoseptal wall, with decreased motion contraction and thickening. This is consistent consistent with a prior myocardial infarction. The rest of the segments of the myocardium had normal perfusion at rest, and normal perfusion post stress with IV Lexiscan. The LV apical segments of the rest of the segments of the myocardium had normal motion, contraction, and thickening by gated study. T. I D. ratio was read as abnormal by the computer at 1.77. Visually the TA D ratio is much less than this, but still abnormal. Computer read rest, and stress left ventricular ejection fraction were 44 %, and 43 %, respectively. Visually both the stress and rest ejection fractions were normal, and greater than 55%. Conclusion: 1. There is scintigraphic evidence of Lexiscan induced myocardial ischemia of moderate intensity involving the LV apical segments.. 2. There is scintigraphic evidence of myocardial infarction/scar of the inferoseptal wall.. Recommendations: 1. At the request of the patient I have discussed the findings with the patient. The patient is very adamant that she does not want a cardiac catheterization. She is aware of the risks of her such duration. It is clear she has made an informed decision, and she wants to be treated medically. Hence will recommend maximizing medical treatment of her coronary artery disease , and aggressive risk factor modification, and treating the underlying co- morbidities. 2. Recommend checking echo cardiogram for LV ejection fraction correlation. 3. Would recommend close outpatient cardiology follow-up. This has been discussed with the attending physician Ms. Oralia Bellamy. As requested by the patient will follow the patient as an outpatient. VIVIANA
== END 2018-06-09 18:15 | disposition home health service (06) | DRG 282 ==
LOC: ER 13:30 → EH 15:53 → 4S 20:53
PROVIDERS: ADMIT Family Medicine; ATTEND Family Medicine
PROC: 3E0F73Z Introduction of Anti-inflammatory into Respiratory Tract, Via Natural or Artificial Opening (ICD-10-PCS; principal; 2018-06-07)
PROC: 3E02340 Introduction of Influenza Vaccine into Muscle, Percutaneous Approach (ICD-10-PCS; 2018-06-09)
DX: I21.4 Non-ST elevation (NSTEMI) myocardial infarction (principal); I10 Essential (primary) hypertension; E78.5 Hyperlipidemia, unspecified; K21.9 Gastro-esophageal reflux disease without esophagitis; J45.909 Unspecified asthma, uncomplicated; E86.0 Dehydration; Z90.49 Acquired absence of other specified parts of digestive tract; Z91.040 Latex allergy status; Z79.899 Other long term (current) drug therapy; Z88.0 Allergy status to penicillin; Z79.82 Long term (current) use of aspirin; S00.81XA Abrasion of other part of head, initial encounter; S80.02XA Contusion of left knee, initial encounter; S80.01XA Contusion of right knee, initial encounter; S40.021A Contusion of right upper arm, initial encounter; W19.XXXA Unspecified fall, initial encounter; M19.90 Unspecified osteoarthritis, unspecified site; Z72.89 Other problems related to lifestyle; Z79.51 Long term (current) use of inhaled steroids; N81.89 Other female genital prolapse; R35.0 Frequency of micturition; Z96.0 Presence of urogenital implants; Y92.009 Unspecified place in unspecified non-institutional (private) residence as the place of occurrence of the external cause; Z23 Encounter for immunization
CPT/HCPCS: 36415; 70450; 71045; 72125; 78452; 80048; 80053; 80061; 80307; 81001; 82140; 82550; 83036; 83605; 84443; 84484; 85025; 85027; 85610; 85730; 87040; 90471; 90686; 93005; 93010; 93017; 94640; 94762; 96361; 96374; 96375; 99285; A9500; G0008; G8978-GP; G8979-GP; J1644; J2270; J2405; J2550; J2785; J3490; Q9969

== ENCOUNTER 2018-06-14 11:46 | Emergency (ER) | payer MEDICARE ==
[2018-06-14 12:55] LABS: ABSOLUTE BASOPHILS # (AUTO) 0.1 10^3/uL (0.0-0.2); ABSOLUTE LYMPHOCYTES (AUTO) 1.9 10^3/uL (0.5-4.7); ABSOLUTE MONOCYTES (AUTO) 0.8 10^3/uL (0.1-1.4); BASOPHILS % (AUTO) 0.8 % (0-2); EOSINOPHILS % (AUTO) 0.6 % (0-6); HEMATOCRIT 35.3 % (36.0-47.0); HEMOGLOBIN 12.2 g/dL (12.0-15.5); LYMPHOCYTES % (AUTO) 28.4 % (13-45); MEAN CORPUSCULAR HEMOGLOBIN 28.3 pg (27.0-33.4); MEAN CORPUSCULAR HGB CONC 34.5 g/dL (32.0-36.0); MEAN CORPUSCULAR VOLUME 82 fl (80-97); MONOCYTES % (AUTO) 12.2 % (3-13); PLATELET COUNT 326 10^3/uL (150-450); RED CELL DISTRIBUTION WIDTH 14.6 % (11.5-14.0); TOTAL CELLS COUNTED % (AUTO) 100 %; WHITE BLOOD COUNT 6.8 10^3/uL (4.0-10.5)
[2018-06-14 13:21] LABS: ALANINE AMINOTRANSFERASE 29 U/L (9-52); ALBUMIN 3.2 g/dL (3.5-5.0); ALKALINE PHOSPHATASE 55 U/L (38-126); ANION GAP 8 (5-19); ASPARTATE AMINO TRANSFERASE 33 U/L (14-36); BILIRUBIN,DIRECT 0.5 mg/dL (0.0-0.4); BILIRUBIN,TOTAL 0.8 mg/dL (0.2-1.3); BLOOD UREA NITROGEN 9 mg/dL (7-20); CARBON DIOXIDE 25 mmol/L (22-30); CHLORIDE 101 mmol/L (98-107); GLUCOSE 91 mg/dL (75-110); LIPASE 46.4 U/L (23-300); POTASSIUM 4.1 mmol/L (3.6-5.0); SODIUM 133.6 mmol/L (137-145); TOTAL PROTEIN 5.9 g/dL (6.3-8.2)
--- NOTE | 2018-06-14 13:25 | RADIOLOGY REPORT (SQ) ---
EXAM DESCRIPTION: ACUTE ABDOMEN SERIES COMPLETED DATE/TIME: 06/14/2018 1:08 pm REASON FOR STUDY: abd pain COMPARISON: AP chest 06/06/2018 CT abdomen pelvis 11/07/2017, 02/19/2017 KUB 07/07/2015 NUMBER OF VIEWS: Three views. TECHNIQUE: Frontal chest, supine abdomen and upright abdomen radiographic images acquired. LIMITATIONS: None. FINDINGS: CHEST: Since the prior imaging, patient has developed a large retrocardiac hernia with air -fluid levels. Herniation of transverse colon into the chest through the esophageal hiatus is suspec carlos eduardo. Chest film today otherwise shows left basilar atelectasis and stable moderate cardiomegaly. FREE AIR: None. No abnormal gas collections. BOWEL GAS PATTERN: Abnormal but nonspecific bowel gas pattern with air-fluid levels in stomach, small bowel, and colon. CALCIFICATIONS: No suspicious calcifications. HARDWARE: None in the abdomen. SOFT TISSUES: No gross mass or suggestion of organomegaly. BONES: No acute fracture. No worrisome bone lesions. OTHER: No other significant finding. IMPRESSION: Since the prior imaging, bowel has herniated through the esophageal hiatus into the medi astinum and right lower chest. There may be partial small bowel obstruction or partial colon obstruc tion related to this. Consider follow-up CT chest abdomen pelvis without oral or IV contrast. COMMENT: This report was called to Dr. Beyer in the emergency room, 1315 hours 06/14/2018 TECHNICAL DOCUMENTATION: JOB ID: [id number] [employer]- All Rights Reserved Reading location - IP/workstation name: [email or web address]
[2018-06-14 14:09] LABS: APPEARANCE,URINE CLEAR; BILIRUBIN,URINE NEGATIVE (NEGATIVE); COLOR,URINE YELLOW; GLUCOSE, URINE NEGATIVE (NEGATIVE); KETONES,URINE NEGATIVE (NEGATIVE); LEUKOCYTE ESTERASE,URINE MODERATE (NEGATIVE); NITRITE,URINE NEGATIVE (NEGATIVE); PROTEIN,URINE NEGATIVE (NEGATIVE); URINE SPECIFIC GRAVITY 1.006; UROBILINOGEN,URINE NEGATIVE mg/dL (<2.0)
--- NOTE | 2018-06-14 14:31 | RADIOLOGY REPORT (SQ) ---
EXAM DESCRIPTION: CT CHEST WITHOUT; CT ABD/PELVIS NO ORAL OR IV COMPLETED DATE/TIME: 06/14/2018 1:54 pm REASON FOR STUDY: f/u aas Further evaluation of possible are hernia seen on prior abdominal radiographs COMPARISON: Same date abdominal radiographs and earlier TECHNIQUE: CT scan of the chest performed without intravenous contrast using helical scanning techni que. Images reviewed with lung, soft tissue and bone windows. Reconstructed coronal and sagittal MPR images reviewed. All images stored on PACS. All CT scanners at this facility use dose modulation, iterative reconstruction, and/or weight based d osing when appropriate to reduce radiation dose to as low as reasonably achievable (ALARA). [facility]: Dose Right [facility]: CareDose [facility]: Dose Right [facility]: [employer] 4D [facility]: Beep RADIATION DOSE: CT Rad equipment meets quality standard of care and radiation dose reduction techniq ues were employed. CTDIvol: 6.7 mGy. DLP: 402 mGy-cm. mGy. LIMITATIONS: No technical limitations. FINDINGS: AXILLAE: No adenopathy. CHEST WALL: No masses. No subcutaneous air. LUNGS: No nodules or masses. No pneumothorax. No infiltrates. PLEURA: No effusions. No calcifications. THYROID: No masses or significant asymmetry. HILAR AND MEDIASTINAL STRUCTURES: No identified masses or abnormal nodes. AORTA AND GREAT VESSELS: No aneurysm. Calcifications of the thoracic aorta. HEART: No pericardial effusion. Mild coronary artery calcifications. HARDWARE AND LIFELINES: None. BONES: No significant finding. 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 *Moderate size hiatal hernia. COMPARISON: Concurrent abdominal radiograph TECHNIQUE: CT scan of the abdomen and pelvis performed without intravenous contrast and withoutoral contrast using helical scanning technique with dynamic intravenous contrast injection. Images review ed with lung, soft tissue and bone windows. Reconstructed coronal and sagittal MPR images reviewed. All images stored on PACS. All CT scanners at this facility use dose modulation, iterative reconstruction, and/or weight based d osing when appropriate to reduce radiation dose to as low as reasonably achievable (ALARA). [facility]: Dose Right [facility]: [employer] [facility]: Dose Right [facility]: [employer] 4D [facility]: [employer] RADIATION DOSE: CT Rad equipment meets quality standard of care and radiation dose reduction techniq ues were employed. CTDIvol: 6.7 mGy. DLP: 402 mGy-cm. mGy. LIMITATIONS: None. FINDINGS: LIVER: Normal size. No masses. No dilated ducts. SPLEEN: Normal size. No focal lesions. PANCREAS: No masses. No significant calcifications. No adjacent inflammation or peripancreatic flui d collections. Pancreatic duct not dilated. GALLBLADDER: No identified stones by CT criteria. No inflammatory changes to suggest cholecystitis. ADRENAL GLANDS: No significant masses or asymmetry. RIGHT KIDNEY AND URETER: No solid masses. Assessment limited by lack of IV contrast. No significant calcifications. No hydronephrosis or hydroureter. LEFT KIDNEY AND URETER: No solid masses. Assessment limited by lack of IV contrast. 2.7 x 2.0 cm cys t from the lateral interpolar region of the left kidney. No significant calcifications. No hydrone phrosis or hydroureter. AORTA AND VESSELS: No aneurysm. Scattered calcified plaque. RETROPERITONEUM: No retroperitoneal adenopathy, hemorrhage or masses. APPENDIX: Not visualized. LARGE AND SMALL BOWEL: Go moderate sized hiatal hernia. Defect in the anterior right hemidiaphragm with herniated nondilated distal small bowel and possibly a short segment of transverse colon. Howev er, the colon is difficult to follow. No dilated loops of bowel. Moderate stool burden. ABDOMINAL WALL: No hernia or masses. PERITONEAL CAVITY: No free air. No free fluid. No peritoneal implants or masses. PELVIS: A pessary device present. Large calcified fibroid in the uterus. BONES: No significant or acute findings. Incompletely visualized intramedullary marie and fixation scr ew of the proximal right femur. OTHER: No other significant finding. IMPRESSION: 1. 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 No bowel obstruction. 2. Moderate size hiatal hernia. 3. Calcified fibroid uterus. TECHNICAL DOCUMENTATION: JOB ID: [id number] Quality ID # [id number]: Final reports with documentation of one or more dose reduction techniques (e.g., Au tomated exposure control, adjustment of the mA and/or kV according to patient size, use of iterative reconstruction technique) 2010 [employer]- All Rights Reserved Reading location - IP/workstation name: [email or web address] [id number]
--- NOTE | 2018-06-14 15:04 | ER Document Report ---
ED General - General Chief Complaint: Abdominal Pain Stated Complaint: ABDOMINAL PAIN Time Seen by Provider: 06/14/18 12:28 TRAVEL OUTSIDE OF THE [place] IN LAST 30 DAYS: No - HPI Patient complains to provider of: Discomfort Notes: Patient coming in for evaluation of abdominal discomfort. Patient was recently admitted to the hospital found to have a n STEMI and is currently waiting for cardiac catheterization. Patient denies any pain similar to that presentation patient denies any chest pain today. Patient states upon discharge started any new medications patient states over the last few days whenever taking her medications doses that her stomach becomes upset patient states this is relieved whenever she takes ranitidine and Gas-X however patient states she wanted to be checked out today. Denies any fevers chills nausea vomiting diarrhea denies any trauma patient resting comfortably upon my evaluation. - Related Data Allergies/Adverse Reactions: latex [Latex] Allergy (Intermediate, Verified 03/21/18 15:52) ITCHING levofloxacin [From Levaquin] Allergy (Unknown, Verified 03/21/18 15:52) Penicillins Adverse Reaction (Mild, Verified 03/21/18 15:52) Yeast infections ibuprofen [From Motrin] Adverse Reaction (Verified 03/21/18 15:52) Past Medical History - Social History Smoking Status: Former Smoker Chew tobacco use (# tins/day): No Frequency of alcohol use: Occasional Drug Abuse: None Family History: Reviewed & Not Pertinent, DM, Hypertension, Malignancy Patient has suicidal ideation: No Patient has homicidal ideation: No - Past Medical History Cardiac Medical History: Reports: Hx Heart Attack - nonstemi 2018, Hx Hypercholesterolemia, Hx Hypertension Denies: Hx Congestive Heart Failure, Hx Coronary Artery Disease, Hx Pulmonary Embolism Pulmonary Medical History: Reports: Hx Asthma, Hx Bronchitis, Hx Pneumonia Comment Only: Hx COPD - States she has not been diagnosed with COPD Neurological Medical History: Denies: Hx Cerebrovascular Accident, Hx Migraine, Hx Seizures Renal/ Medical History: Denies: Hx Peritoneal Dialysis GI Medical History: Reports: Hx Gastroesophageal Reflux Disease, Hx Hiatal Hernia. Denies: Hx Hepatitis, Hx Ulcer Musculoskeletal Medical History: Reports Hx Arthritis Psychiatric Medical History: Reports: Hx Depression - on occassion Infectious Medical History: Denies: Hx Hepatitis Past Surgical History: Reports: Hx Abdominal Surgery - ODELL, Hx Appendectomy, Hx Orthopedic Surgery, Hx Tonsillectomy. Denies: Hx Hysterectomy, Hx Mastectomy , Hx Open Heart Surgery, Hx Pacemaker - Immunizations Hx Diphtheria, Pertussis, Tetanus Vaccination: No Hx Pneumococcal Vaccination: 07/10/15 Review of Systems - Review of Systems Constitutional: No symptoms reported EENT: No symptoms reported Cardiovascular: No symptoms reported Respiratory: No symptoms reported Gastrointestinal: Abdominal pain Genitourinary: No symptoms reported Female Genitourinary: No symptoms reported Musculoskeletal: No symptoms reported Skin: No symptoms reported Hematologic/Lymphatic: No symptoms reported Neurological/Psychological: No symptoms reported -: Yes All other systems reviewed and negative Physical Exam - Vital signs Vitals: Resp 19 06/14/18 11:55 Interpretation: Normal - General General appearance: Appears well, Alert - HEENT Head: Normocephalic, Atraumatic Eyes: Normal Pupils: PERRL - Respiratory Respiratory status: No respiratory distress Chest status: Nontender Breath sounds: Normal Chest palpation: Normal - Cardiovascular Rhythm: Regular Heart sounds: Normal auscultation Murmur: No - Abdominal Inspection: Normal Distension: No distension Bowel sounds: Normal Tenderness: Nontender Organomegaly: No organomegaly - Back Back: Normal, Nontender - Extremities General upper extremity: Normal inspection, Nontender, Normal color, Normal ROM , Normal temperature General lower extremity: Normal inspection, Nontender, Normal color, Normal ROM , Normal temperature, Normal weight bearing. No: Robert's sign - Neurological Neuro grossly intact: Yes Cognition: Normal Orientation: AAOx4 Umair Coma Scale Eye Opening: Spontaneous Umair Coma Scale Verbal: Oriented Umair Coma Scale Motor: Obeys Commands Umair Coma Scale Total: 15 Speech: Normal Motor strength normal: LUE, RUE, LLE, RLE Sensory: Normal - Psychological Associated symptoms: Normal affect, Normal mood - Skin Skin Temperature: Warm Skin Moisture: Dry Skin Color: Normal Course - Re-evaluation Re-evalutation: 06/14/18 15:21 Patient with a morgagni hernia with no signs of obstruction. Patient able tolerate p.o. here no signs of infection or acute pathology seen on patient's workup patient was given surgeon on-call information for follow-up for possible fixation of the hernia after her catheterization. Patient will be discharged home follow-up with PCP. Will increase the patient's omeprazole from 20 mg to 40 mg. The patient presents with abdominal pain without signs of peritonitis or other life-threatening or serious etiology. The patient appears stable for discharge and has been instructed to return immediately if the symptoms worsen in any way, or in 8-12hr if not improved for re-evaluation. The patient has been instructed to return if the symptoms worsen or change in any way. - Vital Signs Vital signs: Temp Pulse Resp BP Pulse Ox 97.2 F 15 155/86 H 93 06/14/18 15:06 06/14/18 15:00 06/14/18 15:06 06/14/18 15:00 - Laboratory Result Diagrams: 06/14/18 12:35 06/14/18 12:35 Laboratory results interpreted by me: 06/14/18 06/14/18 06/14/18 12:35 12:35 13:11 Hct 35.3 L RDW 14.6 H Sodium 133.6 L Direct Bilirubin 0.5 H Total Protein 5.9 L Albumin 3.2 L Ur Leukocyte Esterase MODERATE H Discharge - Discharge Clinical Impression: Morgagni hernia Abdominal pain Qualifiers: Abdominal location: unspecified location Qualified Code(s): R10.9 - Unspecified abdominal pain Condition: Good Disposition: HOME, SELF-CARE Instructions: Abdominal Pain ([facility]), Gastritis ([facility]) Additional Instructions: Your evaluation today shows signs of a large hiatal hernia I would recommend following up with the surgeon provided. Your laboratory studies not show any acute pathology. I believe that your pain is related to inflammation of the stomach I would recommend increasing your omeprazole that you are discharged from the hospital with from 20 mg to 40 mg. Recommend following up with your primary care physician return to the ER symptoms worsen. Prescriptions: Omeprazole 40 mg PO DAILY #14 capsule.dr Referrals: RUBI AGUIAR MD [Primary Care Provider] - Follow up in 3-5 days BABAK LEOS MD [ACTIVE STAFF] - Follow up as needed (After cardiac catheterization he may follow-up with a surgeon for further evaluation of your hernia for possible repair)
[2018-06-14 15:07] VITALS: BP 155/86
== END 2018-06-14 15:22 | disposition home or self-care (01) ==
LOC: ER 11:46
DX: Q79.0 Congenital diaphragmatic hernia (principal); R10.9 Unspecified abdominal pain; Z87.891 Personal history of nicotine dependence; J45.909 Unspecified asthma, uncomplicated
CPT/HCPCS: 36415; 71250; 74022; 74176; 80053; 81001; 83690; 85025; 99284

== ENCOUNTER 2018-09-16 12:18 | Emergency (ER) | payer MEDICARE ==
--- NOTE | 2018-09-16 13:28 | ER Document Report ---
ED Medical Screen (RME) - General Chief Complaint: Breathing Difficulty Stated Complaint: DIFFICULTY BREATHING Time Seen by Provider: 09/16/18 13:21 Notes: RAPID MEDICAL EVALUATION DISCLOSURE I have seen this patient as part of a Rapid Medical Evaluation and, if applicable, placed any initially appropriate orders. The patient will be seen and fully evaluated, including a full history and physical exam, by a provider (in Main ED or Fast Track) when a room becomes available. 78-year-old female PMH hypertension hyperlipidemia CAD RAD here with complaints of shortness of breath cough wheezing that started last night. She reports it felt like her asthma attack. She used her inhaler with some relief. Later in the evening she noticed that she was having some upper abdominal and "rib cage" pain that has continued into today. The pain is worse with exertion but not breathing. EXAM CTAB RRR TRAVEL OUTSIDE OF THE [place] IN LAST 30 DAYS: No - Related Data Allergies/Adverse Reactions: latex [Latex] Allergy (Intermediate, Verified 09/16/18 12:21) ITCHING levofloxacin [From Levaquin] Allergy (Unknown, Verified 09/16/18 12:21) Penicillins Adverse Reaction (Mild, Verified 09/16/18 12:21) Yeast infections ibuprofen [From Motrin] Adverse Reaction (Verified 09/16/18 12:21) Past Medical History - Past Medical History Cardiac Medical History: Reports: Hx Heart Attack - nonstemi 2018, Hx Hypercholesterolemia, Hx Hypertension Denies: Hx Congestive Heart Failure, Hx Coronary Artery Disease, Hx Pulmonary Embolism Pulmonary Medical History: Reports: Hx Asthma, Hx Bronchitis, Hx Pneumonia Comment Only: Hx COPD - States she has not been diagnosed with COPD Neurological Medical History: Denies: Hx Cerebrovascular Accident, Hx Migraine, Hx Seizures Renal/ Medical History: Denies: Hx Peritoneal Dialysis GI Medical History: Reports: Hx Gastroesophageal Reflux Disease, Hx Hiatal Hernia. Denies: Hx Hepatitis, Hx Ulcer Musculoskeltal Medical History: Reports Hx Arthritis Psychiatric Medical History: Reports: Hx Depression - on occassion Infectious Medical History: Denies: Hx Hepatitis Past Surgical History: Reports: Hx Abdominal Surgery - ODELL, Hx Appendectomy, Hx Orthopedic Surgery, Hx Tonsillectomy. Denies: Hx Hysterectomy, Hx Mastectomy, Hx Open Heart Surgery, Hx Pacemaker - Immunizations Hx Diphtheria, Pertussis, Tetanus Vaccination: No History of Influenza Vaccine for 06/2017 - 11/2017 Season: Yes Influenza Administration Date for 06/2017 - 11/2017 Season: 06/11/17 Physical Exam - Vital signs Vitals: Temp Pulse Resp BP Pulse Ox 97.6 F 60 24 H 167/78 H 96 09/16/18 12:37 09/16/18 12:37 09/16/18 12:37 09/16/18 12:37 09/16/18 12:37 Course - Vital Signs Vital signs: Temp Pulse Resp BP Pulse Ox 97.6 F 60 24 H 167/78 H 96 09/16/18 12:37 09/16/18 12:37 09/16/18 12:37 09/16/18 12:37 09/16/18 12:37 Doctor's Discharge - Discharge Referrals: RUBI AGUIAR MD [Primary Care Provider] - Follow up as needed
--- NOTE | 2018-09-16 13:48 | RADIOLOGY REPORT (SQ) ---
EXAM DESCRIPTION: CHEST 2 VIEWS COMPLETED DATE/TIME: 09/16/2018 1:39 pm REASON FOR STUDY: exertional epigastric pain SOB COMPARISON: Chest x-ray dated 05/16/2018. CT dated 06/14/2018. EXAM PARAMETERS: NUMBER OF VIEWS: two views TECHNIQUE: Digital Frontal and Lateral radiographic views of the chest acquired. RADIATION DOSE: NA LIMITATIONS: none FINDINGS: LUNGS AND PLEURA: Chronic interstitial changes. No focal infiltrate, masses or pneumothor ax. No pleural effusion. MEDIASTINUM AND HILAR STRUCTURES: No masses or contour abnormalities. HEART AND VASCULAR STRUCTURES: Heart normal size. No evidence for failure. BONES: No acute findings. HARDWARE: None in the chest. OTHER: Large diaphragmatic hernia in the anterior chest. No other significant finding. IMPRESSION: CHRONIC INTERSTITIAL CHANGES. LARGE DIAPHRAGMATIC HERNIA. NO ACUTE RADIOGRAPHIC FINDIN G IN THE CHEST. TECHNICAL DOCUMENTATION: JOB ID: [id number] [employer]- All Rights Reserved Reading location - IP/workstation name: [email or web address]
[2018-09-16 13:59] LABS: APPEARANCE,URINE CLEAR; BILIRUBIN,URINE NEGATIVE (NEGATIVE); COLOR,URINE YELLOW; GLUCOSE, URINE NEGATIVE (NEGATIVE); KETONES,URINE NEGATIVE (NEGATIVE); LEUKOCYTE ESTERASE,URINE NEGATIVE (NEGATIVE); NITRITE,URINE NEGATIVE (NEGATIVE); PROTEIN,URINE NEGATIVE (NEGATIVE); URINE SPECIFIC GRAVITY 1.011; UROBILINOGEN,URINE NEGATIVE mg/dL (<2.0)
--- NOTE | 2018-09-16 14:23 | ER Document Report ---
ED General - General Chief Complaint: Breathing Difficulty Stated Complaint: DIFFICULTY BREATHING Time Seen by Provider: 09/16/18 13:21 TRAVEL OUTSIDE OF THE [place] IN LAST 30 DAYS: No - HPI Notes: Patient is a 78-year-old female with a history of hypertension, chronic abdominal pain, bladder dysfunction, CAD, asthma who presents to the emergency department complaining of nasal congestion/discharge with an occasional cough times 4 days. Patient states that she did have an exacerbation of her asthma ye sterday which she took inhalers for an help. Patient states that she does have some discomfort around the lower lungs bilaterally when she is coughing which she believes is pleurisy. Patient states that she want to go see her primary care doctor today, but her public transit bus driver did not want to take her there so he brought her here. Patient states that otherwise she feels well and is eating and drinking without difficulty. She is urinating normally and having normal bowel movements. No other significant cardial pulmonary medical history. Denies any prolonged immobilization, distance travel, recent surgery/trauma, personal cancer history, hormone use, smoking, or previous DVT/PE. Denies any headache, fever, URI, sore throat, palpitations, syncope, shortness of breath, dyspnea, nausea/vomiting/diarrhea, urinary retention, dysuria, hematuria, back pain, loss of control of bowel or bladder, numbness/tingling, saddle anesthesia, muscle paralysis/weakness, or rash. - Related Data Allergies/Adverse Reactions: latex [Latex] Allergy (Intermediate, Verified 09/16/18 12:21) ITCHING levofloxacin [From Levaquin] Allergy (Unknown, Verified 09/16/18 12:21) Penicillins Adverse Reaction (Mild, Verified 09/16/18 12:21) Yeast infections ibuprofen [From Motrin] Adverse Reaction (Verified 09/16/18 12:21) Past Medical History - Social History Smoking Status: Never Smoker Chew tobacco use (# tins/day): No Frequency of alcohol use: None Drug Abuse: None Family History: Reviewed & Not Pertinent, DM, Hypertension, Malignancy Patient has suicidal ideation: No Patient has homicidal ideation: No - Past Medical History Cardiac Medical History: Reports: Hx Heart Attack - nonstemi 2018, Hx Hypercholesterolemia, Hx Hypertension Denies: Hx Congestive Heart Failure, Hx Coronary Artery Disease, Hx Pulmonary Embolism Pulmonary Medical History: Reports: Hx Asthma, Hx Bronchitis, Hx Pneumonia Comment Only: Hx COPD - States she has not been diagnosed with COPD Neurological Medical History: Denies: Hx Cerebrovascular Accident, Hx Migraine, Hx Seizures Renal/ Medical History: Denies: Hx Peritoneal Dialysis GI Medical History: Reports: Hx Gastroesophageal Reflux Disease, Hx Hiatal Hernia. Denies: Hx Hepatitis, Hx Ulcer Musculoskeletal Medical History: Reports Hx Arthritis Psychiatric Medical History: Reports: Hx Depression - on occassion Infectious Medical History: Denies: Hx Hepatitis Past Surgical History: Reports: Hx Abdominal Surgery - ODELL, Hx Appendectomy, Hx Orthopedic Surgery, Hx Tonsillectomy. Denies: Hx Hysterectomy, Hx Mastectomy, Hx Open Heart Surgery, Hx Pacemaker - Immunizations Hx Diphtheria, Pertussis, Tetanus Vaccination: No Hx Pneumococcal Vaccination: 07/10/15 Review of Systems - Review of Systems -: Yes All other systems reviewed and negative Physical Exam - Vital signs Vitals: Temp Pulse Resp BP Pulse Ox 97.6 F 60 24 H 167/78 H 96 09/16/18 12:37 09/16/18 12:37 09/16/18 12:37 09/16/18 12:37 09/16/18 12:37 - Notes Notes: PHYSICAL EXAMINATION: GENERAL: Well-appearing, well-nourished and in no acute distress. HEAD: Atraumatic, normocephalic. EYES: Pupils equal round and reactive to light, extraocular movements intact, sclera anicteric, conjunctiva are normal. ENT: Nares patent and with clear discharge. oropharynx clear without exudates. No tonsilar hypertrophy or erythema. Moist mucous membranes. NECK: Normal range of motion, supple without lymphadenopathy LUNGS: Breath sounds clear to auscultation bilaterally and equal. No wheezes rales or rhonchi. HEART: Regular rate and rhythm without murmurs, rubs, gallops. ABDOMEN: Soft, nontender, nondistended abdomen. No guarding, no rebound. No masses appreciated. Normal bowel sounds present. No CVA tenderness bilaterally. Musculoskeletal: FROM to passive/active. Strength 5+/5. Robert neg. No asymmetry to LE's. Extremities: No cyanosis, clubbing, or edema b/l. Peripheral pulses 2+. Capillary refill less than 3 seconds. NEUROLOGICAL: Normal speech, normal gait. PSYCH: Normal mood, normal affect. SKIN: Warm, Dry, normal turgor, no rashes or lesions noted. Course - Re-evaluation Re-evalutation: 09/16/18 18:12 Patient is an afebrile, well-hydrated 78-year-old female who presents to the ED with acute URI, suspect viral, and constipation. Vitals are acceptable without any significant tachycardia, tachypnea, or hypoxia. PE is otherwise unrem arkable. Patient is nontoxic-appearing and is tolerating p.o. without any difficulties. Lungs are clear to auscultation bilaterally and abdomen is soft and nontender. CBC, CMP, EKG/cardiac enzymes 2, d-dimer, chest x-ray are all unremarkable for any acute pathology. See KUB. Patient has a heart score of 3, Wells score of 0. Patient does not have any chest pain, dyspnea, or shortness of breath. Patient's presentation and symptomatology creates low suspicion for ACS, PE, pneumothorax, pericarditis, dissection, respiratory compromise, severe dehydration, sepsis, meningitis, or other systemic emergent condition at this time. Patient is aware that this condition can change from initial presentation and she needs to monitor symptoms closely and seek medical attention for any acute changes. Decadron/Toradol given IV. Pt is feeling better and would like to go home. I will send her home with mag citrate. Recommend conservative measures for symptoms. Recheck with your PCM in 2-3 days. Return to the ED with any worsening/concerning symptoms otherwise as reviewed in discharge. Patient is in agreement. - Vital Signs Vital signs: Temp Pulse Resp BP Pulse Ox 97.6 F 60 24 H 167/78 H 96 09/16/18 12:37 09/16/18 12:37 09/16/18 12:37 09/16/18 12:37 09/16/18 12:37 - Laboratory Result Diagrams: 09/16/18 13:56 09/16/18 13:56 Laboratory results interpreted by me: 09/16/18 09/16/18 13:56 13:56 MCV 79 L RDW 15.1 H Sodium 132.9 L BUN 21 H Discharge - Discharge Clinical Impression: Acute URI, Atypical chest pain Constipation Qualifiers: Constipation type: unspecified constipation type Qualified Code(s): K59.00 - Constipation, unspecified Condition: Stable Disposition: HOME, SELF-CARE Instructions: Chest Pain of Unclear Cause ([facility]), Upper Respiratory Illness ([facility]) Additional Instructions: Maintain adequate fluid and food intake Take home medications as directed Healthy diet Cold medicine as needed Use your rescue inhaler as needed for asthma/wheezing Take mag citrate for constipation as directed Monitor blood pressure daily and keep a log Monitor symptoms for any acute changes Recheck with your PCM in 2-3 days Consider a follow-up with cardiology Return to the ED with any worsening symptoms and/or development of fever, headache, chest pain, palpitations, syncope, shortness of breath, trouble breathing, abdominal pain, n/v/d, blood in stool/urine, loss of control of bowel/bladder, urinary retention, muscle weakness/paralysis, numbness/tingling, or other worsening symptoms that are concerning to you. Prescriptions: Magnesium Citrate [Citrate of Magnesia 296 ml Bottle] 296 ml PO ONCE PRN #1 bottle PRN Reason: Forms: Elevated Blood Pressure Referrals: RUBI AGUIAR MD [Primary Care Provider] - 09/18/18
[2018-09-16 14:24] LABS: ABSOLUTE LYMPHOCYTES (AUTO) 1.6 10^3/uL (0.5-4.7); ABSOLUTE MONOCYTES (AUTO) 0.5 10^3/uL (0.1-1.4); ABSOLUTE NEUT (AUTO) 3.5 10^3/uL (1.7-8.2); BASOPHILS % (AUTO) 0.7 % (0-2); EOSINOPHILS % (AUTO) 0.6 % (0-6); HEMATOCRIT 36.3 % (36.0-47.0); HEMOGLOBIN 12.4 g/dL (12.0-15.5); LYMPHOCYTES % (AUTO) 28.2 % (13-45); MEAN CORPUSCULAR HEMOGLOBIN 27.1 pg (27.0-33.4); MEAN CORPUSCULAR HGB CONC 34.3 g/dL (32.0-36.0); MEAN CORPUSCULAR VOLUME 79 fl (80-97); MONOCYTES % (AUTO) 8.6 % (3-13); PLATELET COUNT 188 10^3/uL (150-450); RED BLOOD COUNT 4.59 10^6/uL (3.72-5.28); RED CELL DISTRIBUTION WIDTH 15.1 % (11.5-14.0); SEGMENTED NEUTROPHILS % (AUTO) 61.9 % (42-78); TOTAL CELLS COUNTED % (AUTO) 100 %; WHITE BLOOD COUNT 5.7 10^3/uL (4.0-10.5)
[2018-09-16 14:38] LABS: ALANINE AMINOTRANSFERASE 17 U/L (9-52); ALKALINE PHOSPHATASE 52 U/L (38-126); ASPARTATE AMINO TRANSFERASE 27 U/L (14-36); BILIRUBIN,DIRECT 0.4 mg/dL (0.0-0.4); BILIRUBIN,TOTAL 0.8 mg/dL (0.2-1.3); BLOOD UREA NITROGEN 21 mg/dL (7-20); CALCIUM 9.7 mg/dL (8.4-10.2); CHLORIDE 98 mmol/L (98-107); GLUCOSE 93 mg/dL (75-110); LIPASE 78.4 U/L (23-300); POTASSIUM 4.7 mmol/L (3.6-5.0); TOTAL PROTEIN 6.5 g/dL (6.3-8.2)
[2018-09-16 14:48] LABS: ANION GAP 7 (5-19); CARBON DIOXIDE 28 mmol/L (22-30); SODIUM 132.9 mmol/L (137-145)
[2018-09-16 14:50] LABS: NT PRO BNP 428 pg/mL (<450)
[2018-09-16 14:51] LABS: TROPONIN I < 0.012 ng/mL
[2018-09-16] MEDS ORDERED: ACETAMINOPHEN 325 MG TABLET PO ONE (15:58)
--- NOTE | 2018-09-16 17:01 | RADIOLOGY REPORT (SQ) ---
EXAM DESCRIPTION: KUB/ABDOMEN (SINGLE VIEW) COMPLETED DATE/TIME: 09/16/2018 4:48 pm REASON FOR STUDY: abd pain COMPARISON: 07/07/2015 NUMBER OF VIEWS: One view. TECHNIQUE: Supine radiographic image of the abdomen acquired. LIMITATIONS: None. FINDINGS: BOWEL GAS PATTERN: There is mild distention of large and small bowel. There is large amou nt of stool throughout the colon. No evidence of mechanical obstruction. CALCIFICATIONS: No suspicious calcifications. SOFT TISSUES: There is a calcified uterine fibroid noted. HARDWARE: None in the abdomen. BONES: No acute fracture. No worrisome bone lesions. OTHER: No other significant finding. IMPRESSION: Constipation. No evidence of mechanical obstruction. TECHNICAL DOCUMENTATION: JOB ID: [id number] [employer]- All Rights Reserved Reading location - IP/workstation name: [email or web address]
[2018-09-16] MEDS ORDERED: DEXAMETHASONE SOD PHOS INJ 10 MG/1 ML VIAL IV ONE (17:57)
--- NOTE | 2018-09-16 18:49 | EKG REPORT ---
SEVERITY:- NORMAL ECG - SINUS RHYTHM : Confirmed by: Mohsen You MD 16-Sep-2018 18:49:25
[2018-09-16 19:04] VITALS: BP 167/79
== END 2018-09-16 19:07 | disposition home or self-care (01) ==
LOC: ER 12:18
DX: J06.9 Acute upper respiratory infection, unspecified (principal); K59.00 Constipation, unspecified; J45.909 Unspecified asthma, uncomplicated; R07.89 Other chest pain; I10 Essential (primary) hypertension; I25.10 Atherosclerotic heart disease of native coronary artery without angina pectoris; R09.81 Nasal congestion; R05 Cough; Z91.040 Latex allergy status; Z88.1 Allergy status to other antibiotic agents; Z88.0 Allergy status to penicillin
CPT/HCPCS: 93005; 99285; 96374; 36415; 83690; 85025; 80053; 81001; 84484; 85379; 83880; 71046; 74018; 93010; A9270; J1100

== ENCOUNTER 2018-10-13 09:41 | Emergency (ER) | payer MEDICARE ==
--- NOTE | 2018-10-13 10:36 | ER Document Report ---
ED Medical Screen (RME) - General Chief Complaint: Shortness Of Breath Stated Complaint: DIFFICULTY BREATHING Time Seen by Provider: 10/13/18 10:34 Primary Care Provider: RUBI AGUIAR MD [Primary Care Provider] - Follow up as needed Notes: 78-year-old female to the emergency department chief complaint of increased cough, shortness of breath for the last couple of days. Has had an OH and did not have any symptoms before. On a bunch of medications. On a nitroglycerin patch. On Advair and Singulair and albuterol. Using her inhaler but does not seem to be helping. Denies any chest pain at this time. Increased cough is her main complaint. I have greeted and performed a rapid initial assessment of this patient. A comprehensive ED assessment and evaluation of the patient, analysis of test results and completion of the medical decision making process will be conducted by additional ED providers. TRAVEL OUTSIDE OF THE [place] IN LAST 30 DAYS: No - Related Data Allergies/Adverse Reactions: latex [Latex] Allergy (Intermediate, Verified 10/13/18 09:45) ITCHING levofloxacin [From Levaquin] Allergy (Unknown, Verified 10/13/18 09:45) Penicillins Adverse Reaction (Mild, Verified 10/13/18 09:45) Yeast infections ibuprofen [From Motrin] Adverse Reaction (Verified 10/13/18 09:45) Past Medical History - Social History Frequency of alcohol use: Occasional Drug Abuse: None - Past Medical History Cardiac Medical History: Reports: Hx Heart Attack - nonstemi 2018, Hx Hypercholesterolemia, Hx Hypertension Denies: Hx Congestive Heart Failure, Hx Coronary Artery Disease, Hx Pulmonary Embolism Pulmonary Medical History: Reports: Hx Asthma, Hx Bronchitis, Hx Pneumonia Comment Only: Hx COPD - States she has not been diagnosed with COPD Neurological Medical History: Denies: Hx Cerebrovascular Accident, Hx Migraine, Hx Seizures Renal/ Medical History: Denies: Hx Peritoneal Dialysis GI Medical History: Reports: Hx Gastroesophageal Reflux Disease, Hx Hiatal Hernia. Denies: Hx Hepatitis, Hx Ulcer Musculoskeltal Medical History: Reports Hx Arthritis Psychiatric Medical History: Reports: Hx Depression - on occassion Infectious Medical History: Denies: Hx Hepatitis Past Surgical History: Reports: Hx Abdominal Surgery - ODELL, Hx Appendectomy, Hx Orthopedic Surgery, Hx Tonsillectomy. Denies: Hx Hysterectomy, Hx Mastectomy, Hx Open Heart Surgery, Hx Pacemaker - Immunizations Hx Diphtheria, Pertussis, Tetanus Vaccination: No History of Influenza Vaccine for 06/2017 - 11/2017 Season: Yes Influenza Administration Date for 06/2017 - 11/2017 Season: 06/11/17 Physical Exam - Vital signs Vitals: Temp Pulse Resp BP Pulse Ox 97.9 F 92 20 151/77 H 96 10/13/18 09:53 10/13/18 09:53 10/13/18 09:53 10/13/18 09:53 10/13/18 09:53 Course - Vital Signs Vital signs: Temp Pulse Resp BP Pulse Ox 97.9 F 92 20 151/77 H 96 10/13/18 09:53 10/13/18 09:53 10/13/18 09:53 10/13/18 09:53 10/13/18 09:53 Doctor's Discharge - Discharge Referrals: RUBI AGUIAR MD [Primary Care Provider] - Follow up as needed
--- NOTE | 2018-10-13 11:18 | ER Document Report ---
ED General - General Chief Complaint: Shortness Of Breath Stated Complaint: DIFFICULTY BREATHING Time Seen by Provider: 10/13/18 10:34 Primary Care Provider: RUBI AGUIAR MD [Primary Care Provider] - Follow up as needed TRAVEL OUTSIDE OF THE [place] IN LAST 30 DAYS: No - HPI Notes: Patient is a 78-year-old female with history of asthma, coronary artery disease who presents emergency department complaining of dry semi-productive cough and nasal congestion/discharge that began yesterday. Patient states that she is still eating and drinking without difficulty. She is urinating normally and having normal bowel movements. Patient has been using her inhalers with minimal improvement, but has not been wheezing or having any trouble breathing. No other concerns or complaints. Patient states that she want to go somewhere where they can do an x-ray of her chest. Denies any headache, fever, neck pain, sore throat, chest pain, palpitations, syncope, shortness of breath, wheeze, dyspnea, abdominal pain, nausea/vomiting/diarrhea, urinary retention, dysuria, hematuria, or rash. - Related Data Allergies/Adverse Reactions: latex [Latex] Allergy (Intermediate, Verified 10/13/18 09:45) ITCHING levofloxacin [From Levaquin] Allergy (Unknown, Verified 10/13/18 09:45) Penicillins Adverse Reaction (Mild, Verified 10/13/18 09:45) Yeast infections ibuprofen [From Motrin] Adverse Reaction (Verified 10/13/18 09:45) Past Medical History - Social History Smoking Status: Never Smoker Frequency of alcohol use: Occasional Drug Abuse: None Family History: Reviewed & Not Pertinent, DM, Hypertension, Malignancy Patient has suicidal ideation: No Patient has homicidal ideation: No - Past Medical History Cardiac Medical History: Reports: Hx Heart Attack - nonstemi 2018, Hx Hypercholesterolemia, Hx Hypertension Denies: Hx Congestive Heart Failure, Hx Coronary Artery Disease, Hx Pulmonary Embolism Pulmonary Medical History: Reports: Hx Asthma, Hx Bronchitis, Hx Pneumonia Comment Only: Hx COPD - States she has not been diagnosed with COPD Neurological Medical History: Denies: Hx Cerebrovascular Accident, Hx Migraine, Hx Seizures Renal/ Medical History: Denies: Hx Peritoneal Dialysis GI Medical History: Reports: Hx Gastroesophageal Reflux Disease, Hx Hiatal Hernia. Denies: Hx Hepatitis, Hx Ulcer Musculoskeletal Medical History: Reports Hx Arthritis Psychiatric Medical History: Reports: Hx Depression - on occassion Infectious Medical History: Denies: Hx Hepatitis Past Surgical History: Reports: Hx Abdominal Surgery - ODELL, Hx Appendectomy, Hx Orthopedic Surgery, Hx Tonsillectomy. Denies: Hx Hysterectomy, Hx Mastectomy, Hx Open Heart Surgery, Hx Pacemaker - Immunizations Hx Diphtheria, Pertussis, Tetanus Vaccination: No Hx Pneumococcal Vaccination: 07/10/15 Review of Systems - Review of Systems -: Yes All other systems reviewed and negative Physical Exam - Vital signs Vitals: Temp Pulse Resp BP Pulse Ox 97.9 F 92 20 151/77 H 96 10/13/18 09:53 10/13/18 09:53 10/13/18 09:53 10/13/18 09:53 10/13/18 09:53 - Notes Notes: PHYSICAL EXAMINATION: GENERAL: Well-appearing, well-nourished and in no acute distress. A&ox4. Answers questions appropriately. speaks in full sentences w/o difficulty. HEAD: Atraumatic, normocephalic. EYES: Pupils equal round and reactive to light, extraocular movements intact, sclera anicteric, conjunctiva are normal. ENT: Nares patent and with clear discharge. oropharynx clear without exudates. No tonsilar hypertrophy or erythema. Moist mucous membranes. NECK: Normal range of motion, supple without lymphadenopathy LUNGS: Breath sounds clear to auscultation bilaterally and equal. No wheezes rales or rhonchi. No retractions. HEART: Regular rate and rhythm without murmurs, rubs, gallops. ABDOMEN: Soft, nontender, nondistended abdomen. No guarding, no rebound. No masses appreciated. Normal bowel sounds present. No CVA tenderness bilaterally. Musculoskeletal: FROM to passive/active. Strength 5+/5. Robert neg. No asymmetry to LE's. Back: + kyphosis. Extremities: No cyanosis, clubbing, or edema b/l. Peripheral pulses 2+. Capillary refill less than 3 seconds. NEUROLOGICAL: Normal speech, normal gait. PSYCH: Normal mood, normal affect. SKIN: Warm, Dry, normal turgor, no rashes or lesions noted. Course - Re-evaluation Re-evalutation: 10/13/18 12:41 Patient is an afebrile, well-hydrated 78-year-old male who presents to the ED with acute URI with a cough, suspect viral. Vitals are acceptable without any significant tachycardia, tachypnea, or hypoxia. PE is otherwise unremarkable. Patient is nontoxic-appearing and is tolerating p.o. without any difficulties. CBC, CMP, EKG/cardiac enzymes, BNP, chest x-ray are all unremarkable for any acute pathology. Patient does not have any chest pain, dyspnea, or shortness of breath. Pt is here because of a productive cough with associated nasal rodger/discharge. Patient's presentation and symptomatology creates low suspicion for ACS, PE, pneumothorax, pericarditis, dissection, respiratory compromise, severe dehydration, sepsis, meningitis, or other systemic emergent condition at this time. Patient is aware that this condition can change from initial presentation and she needs to monitor symptoms closely and seek medical attention for any acute changes. Pt was given 1 breathing treatment in the ED. Recommend conservative measures for symptoms. Recheck with your PCM in 2-3 days. Return to the ED with any worsening/concerning symptoms otherwise as reviewed in discharge. Patient is in agreement. - Vital Signs Vital signs: Temp Pulse Resp BP Pulse Ox 97.9 F 92 20 151/77 H 96 10/13/18 09:53 10/13/18 09:53 10/13/18 09:53 10/13/18 09:53 10/13/18 09:53 - Laboratory Result Diagrams: 10/13/18 11:00 10/13/18 11:00 Laboratory results interpreted by me: 10/13/18 10/13/18 11:00 11:00 RDW 15.1 H BUN 21 H Discharge - Discharge Clinical Impression: Acute URI, Cough Condition: Stable Disposition: HOME, SELF-CARE Instructions: Upper Respiratory Illness ([facility]) Additional Instructions: Maintain adequate fluid intake Take meds as directed tylenol/ibuprofen as needed over the counter cold medication as needed for symptoms Humidified air may help Wash your hands regularly Wear a mask when coughing F/u: with your PCM in 2-3 days for a recheck Return to the ED with any fever, worsening pain, chest pain, palpitations, syncope, worsening COOK, neck pain/stiffness, shortness of breath, wheezing, drooling, trouble swallowing/breathing, abdominal pain, n/v/d, rash, or worsening/concerning symptoms otherwise. Prescriptions: Guaifenesin [Mucinex] 600 mg PO BID #6 tablet.sa Forms: Elevated Blood Pressure Referrals: RUBI AGUIAR MD [Primary Care Provider] - 10/15/18
[2018-10-13 11:20] LABS: ABSOLUTE LYMPHOCYTES (AUTO) 1.2 10^3/uL (0.5-4.7); ABSOLUTE MONOCYTES (AUTO) 0.5 10^3/uL (0.1-1.4); ABSOLUTE NEUT (AUTO) 3.7 10^3/uL (1.7-8.2); BASOPHILS % (AUTO) 0.5 % (0-2); EOSINOPHILS % (AUTO) 0.4 % (0-6); HEMATOCRIT 39.6 % (36.0-47.0); HEMOGLOBIN 13.5 g/dL (12.0-15.5); LYMPHOCYTES % (AUTO) 21.3 % (13-45); MEAN CORPUSCULAR HEMOGLOBIN 27.3 pg (27.0-33.4); MEAN CORPUSCULAR HGB CONC 34.1 g/dL (32.0-36.0); MEAN CORPUSCULAR VOLUME 80 fl (80-97); MONOCYTES % (AUTO) 8.8 % (3-13); PLATELET COUNT 198 10^3/uL (150-450); RED BLOOD COUNT 4.93 10^6/uL (3.72-5.28); RED CELL DISTRIBUTION WIDTH 15.1 % (11.5-14.0); TOTAL CELLS COUNTED % (AUTO) 100 %; WHITE BLOOD COUNT 5.4 10^3/uL (4.0-10.5)
--- NOTE | 2018-10-13 11:32 | RADIOLOGY REPORT (SQ) ---
EXAM DESCRIPTION: CHEST SINGLE VIEW COMPLETED DATE/TIME: 10/13/2018 11:16 am REASON FOR STUDY: sob COMPARISON: Chest films 09/16/2018, 06/06/2018, 05/16/2018 CT chest 06/14/2018 EXAM PARAMETERS: NUMBER OF VIEWS: One view. TECHNIQUE: Single frontal radiographic view of the chest acquired. RADIATION DOSE: NA LIMITATIONS: None. FINDINGS: LUNGS AND PLEURA: Eventration of the anterior right hemidiaphragm is projected over the ri t lower chest. Minimal bandlike scarring or atelectasis along the right minor fissure and left lung base. No fluffy alveolar infiltrates worrisome for pulmonary edema or pneumonia. No pleural effusions. No pneumothorax. MEDIASTINUM AND HILAR STRUCTURES: Retrocardiac hiatal hernia with air-fluid level. HEART AND VASCULAR STRUCTURES: Mild cardiomegaly. BONES: No acute findings. HARDWARE: None in the chest. OTHER: No other significant finding. IMPRESSION: No acute findings TECHNICAL DOCUMENTATION: JOB ID: [id number] [employer]- All Rights Reserved Reading location - IP/workstation name: [email or web address]
[2018-10-13 11:43] LABS: ALANINE AMINOTRANSFERASE 24 U/L (9-52); ALBUMIN 4.5 g/dL (3.5-5.0); ALKALINE PHOSPHATASE 59 U/L (38-126); ANION GAP 10 (5-19); ASPARTATE AMINO TRANSFERASE 24 U/L (14-36); BILIRUBIN,DIRECT 0.1 mg/dL (0.0-0.4); BILIRUBIN,TOTAL 0.5 mg/dL (0.2-1.3); BLOOD UREA NITROGEN 21 mg/dL (7-20); CARBON DIOXIDE 27 mmol/L (22-30); CHLORIDE 102 mmol/L (98-107); GLUCOSE 105 mg/dL (75-110); POTASSIUM 4.6 mmol/L (3.6-5.0); SODIUM 138.8 mmol/L (137-145); TOTAL PROTEIN 6.8 g/dL (6.3-8.2)
[2018-10-13 11:56] LABS: NT PRO BNP 209 pg/mL (<450)
[2018-10-13 12:03] LABS: TROPONIN I < 0.012 ng/mL
[2018-10-13] MEDS ORDERED: IPRATROPIUM/ALBUTEROL 0.5-2.5 MG/3 ML AMPUL NEB ONE (12:41)
[2018-10-13 13:38] VITALS: BP 132/78
== END 2018-10-13 13:38 | disposition home or self-care (01) ==
LOC: ER 09:41
DX: J06.9 Acute upper respiratory infection, unspecified (principal); R06.02 Shortness of breath; R06.00 Dyspnea, unspecified; E78.00 Pure hypercholesterolemia, unspecified; I10 Essential (primary) hypertension; Z91.040 Latex allergy status; Z88.0 Allergy status to penicillin; Z88.6 Allergy status to analgesic agent; Z88.3 Allergy status to other anti-infective agents; I25.2 Old myocardial infarction
CPT/HCPCS: 94640; 99283; 36415; 85025; 80053; 84484; 83880; 71045; A9270; J7620

== ENCOUNTER 2018-11-24 12:01 | Emergency (ER) | payer MEDICARE ==
[2018-11-24] MEDS ORDERED: HYDROCODONE/ACETAMINOPHEN 5-325 MG TABLET PO ONE (13:19)
--- NOTE | 2018-11-24 13:21 | ER Document Report ---
ED General - General Chief Complaint: Rib Pain Stated Complaint: FLANK PAIN Time Seen by Provider: 11/24/18 13:16 Primary Care Provider: RUBI AGUIAR MD [Primary Care Provider] - Follow up as needed Mode of Arrival: Ambulatory Information source: Patient TRAVEL OUTSIDE OF THE [place] IN LAST 30 DAYS: No - HPI Patient complains to provider of: Left rib pain Onset: Other - 3 days Quality of pain: Achy Severity: Mild Pain Level: 2 Associated symptoms: None Exacerbated by: Movement Relieved by: Denies Similar symptoms previously: No Recently seen / treated by doctor: No Notes: Patient is a 78-year-old female presenting to the emergency room today complaining of left-sided rib pain, states 3 days ago she was reaching into her washing machine to get something out of the far back when her left rib cage impacted the opening of the washing machine causing her to have some pain which has not gone away, she denies the sensation of any popping or cracking, denies any shortness of breath, denies pain or injury elsewhere - Related Data Allergies/Adverse Reactions: latex [Latex] Allergy (Intermediate, Verified 11/24/18 12:04) ITCHING levofloxacin [From Levaquin] Allergy (Unknown, Verified 11/24/18 12:04) Penicillins Adverse Reaction (Mild, Verified 11/24/18 12:04) Yeast infections ibuprofen [From Motrin] Adverse Reaction (Verified 11/24/18 12:04) Past Medical History - General Information source: Patient - Social History Smoking Status: Never Smoker Chew tobacco use (# tins/day): No Frequency of alcohol use: Occasional Drug Abuse: None Family History: Reviewed & Not Pertinent, DM, Hypertension, Malignancy Patient has suicidal ideation: No Patient has homicidal ideation: No - Past Medical History Cardiac Medical History: Reports: Hx Heart Attack - nonstemi 2018, Hx Hypercholesterolemia, Hx Hypertension Denies: Hx Congestive Heart Failure, Hx Coronary Artery Disease, Hx Pulmonary Embolism Pulmonary Medical History: Reports: Hx Asthma, Hx Bronchitis, Hx Pneumonia Comment Only: Hx COPD - States she has not been diagnosed with COPD Neurological Medical History: Denies: Hx Cerebrovascular Accident, Hx Migraine, Hx Seizures Renal/ Medical History: Denies: Hx Peritoneal Dialysis GI Medical History: Reports: Hx Gastroesophageal Reflux Disease, Hx Hiatal Hernia. Denies: Hx Hepatitis, Hx Ulcer Musculoskeletal Medical History: Reports Hx Arthritis Psychiatric Medical History: Reports: Hx Depression - on occassion Infectious Medical History: Denies: Hx Hepatitis Past Surgical History: Reports: Hx Abdominal Surgery - ODELL, Hx Appendectomy, Hx Orthopedic Surgery, Hx Tonsillectomy. Denies: Hx Hysterectomy, Hx Mastectomy, Hx Open Heart Surgery, Hx Pacemaker - Immunizations Hx Diphtheria, Pertussis, Tetanus Vaccination: No Hx Pneumococcal Vaccination: 07/10/15 Review of Systems - Review of Systems Constitutional: No symptoms reported EENT: No symptoms reported Cardiovascular: No symptoms reported Respiratory: No symptoms reported Gastrointestinal: No symptoms reported Genitourinary: No symptoms reported Female Genitourinary: No symptoms reported Musculoskeletal: See HPI Skin: No symptoms reported Hematologic/Lymphatic: No symptoms reported Neurological/Psychological: No symptoms reported -: Yes All other systems reviewed and negative Physical Exam - Vital signs Vitals: Temp Pulse Resp BP Pulse Ox 98.1 F 65 17 166/77 H 98 11/24/18 12:22 11/24/18 12:22 11/24/18 12:22 11/24/18 12:22 11/24/18 12:22 Interpretation: Normal - General General appearance: Appears well, Alert - HEENT Head: Normocephalic, Atraumatic Eyes: Normal Pupils: PERRL - Respiratory Respiratory status: No respiratory distress Chest status: Nontender Breath sounds: Normal Chest palpation: Tender - Tender to palpate on the left mid anterior and lower rib cage, no ecchymosis or erythema, no crepitus, no deformity - Cardiovascular Rhythm: Regular Heart sounds: Normal auscultation Murmur: No - Abdominal Inspection: Normal Distension: No distension Bowel sounds: Normal Tenderness: Nontender Organomegaly: No organomegaly - Back Back: Normal, Nontender - Extremities General upper extremity: Normal inspection, Nontender, Normal color, Normal ROM, Normal temperature General lower extremity: Normal inspection, Nontender, Normal color, Normal ROM, Normal temperature, Normal weight bearing. No: Robert's sign - Neurological Neuro grossly intact: Yes Cognition: Normal Orientation: AAOx4 Lyons Coma Scale Eye Opening: Spontaneous Umair Coma Scale Verbal: Oriented Umair Coma Scale Motor: Obeys Commands Umair Coma Scale Total: 15 Speech: Normal Motor strength normal: LUE, RUE, LLE, RLE Sensory: Normal - Psychological Associated symptoms: Normal affect, Normal mood - Skin Skin Temperature: Warm Skin Moisture: Dry Skin Color: Normal Course - Re-evaluation Re-evalutation: 11/24/18 14:51 Imaging findings discussed with patient at bedside, no displaced rib fractures noted, she does have a large hiatal hernia on the right which is chronic in nature, patient will be discharged with pain medication and instructions for follow-up, advised to return if any additional concerns or worsening of symptoms, patient acknowledges understanding and agreement with this plan - Vital Signs Vital signs: Temp Pulse Resp BP Pulse Ox 98.1 F 65 17 166/77 H 98 11/24/18 12:22 11/24/18 12:22 11/24/18 12:22 11/24/18 12:22 11/24/18 12:22 - Diagnostic Test Radiology reviewed: Image reviewed, Reports reviewed Discharge - Discharge Clinical Impression: Contusion of rib on left side Qualifiers: Encounter type: initial encounter Qualified Code(s): S20.212A - Contusion of left front wall of thorax, initial encounter Condition: Stable Disposition: HOME, SELF-CARE Instructions: Rib Contusion ([facility]) Additional Instructions: Follow up with your primary care provider in one to 2 days. Return to the emergency room immediately if symptoms worsen or any additional concerns. Prescriptions: Hydrocodone/Acetaminophen [[place] 5-325 mg Tablet] 1 tab PO Q6 #10 tablet Referrals: RUBI AGUIAR MD [Primary Care Provider] - Follow up as needed
--- NOTE | 2018-11-24 14:14 | RADIOLOGY REPORT (SQ) ---
EXAM DESCRIPTION: RIBS LEFT W/PA CHEST COMPLETED DATE/TIME: 11/24/2018 1:49 pm REASON FOR STUDY: injury, pain COMPARISON: None. TECHNIQUE: Frontal view of the chest and additional views of the left ribs acquired. NUMBER OF VIEWS: Three views LIMITATIONS: None. FINDINGS: FRONTAL CXR: Considerable opacification in the right lower lung field. Cardiomegaly. Hia randy hernia. RIBS: No displaced rib fractures. No lytic or blastic bony lesions. OTHER: No other significant finding. IMPRESSION: Right lower lobe pneumonia. Cardiomegaly without CHF. Hiatal hernia. No rib lesion is appreciated. COMMENT: SITE OF TRAUMA/COMPLAINT MARKED/STAMP COMPLETED: No TECHNICAL DOCUMENTATION: JOB ID: [id number] [employer]- All Rights Reserved Reading location - IP/workstation name: [email or web address]
--- NOTE | 2018-11-24 14:46 | RADIOLOGY REPORT (SQ) ---
EXAM DESCRIPTION: CHEST 2 VIEWS COMPLETED DATE/TIME: 11/24/2018 2:38 pm REASON FOR STUDY: RLL abnormality COMPARISON: Earlier the same day. EXAM PARAMETERS: NUMBER OF VIEWS: two views TECHNIQUE: Digital Frontal and Lateral radiographic views of the chest acquired. RADIATION DOSE: NA LIMITATIONS: none FINDINGS: LUNGS AND PLEURA: The patient has a known right-sided hiatal hernia. I suspect the change s in the right base are related to the hernia rather than pneumonia. There is scarring in the left b ase. No definite effusions. No pneumothorax. MEDIASTINUM AND HILAR STRUCTURES: No masses or contour abnormalities. HEART AND VASCULAR STRUCTURES: Heart normal size. No evidence for failure. BONES: No acute findings. HARDWARE: None in the chest. OTHER: No other significant finding. IMPRESSION: Large right-sided hiatal hernia. Doubt any underlying pneumonia. TECHNICAL DOCUMENTATION: JOB ID: [id number] [employer]- All Rights Reserved Reading location - IP/workstation name: [email or web address]
[2018-11-24 14:58] VITALS: BP 163/77
== END 2018-11-24 14:59 | disposition home or self-care (01) ==
LOC: ER 12:01
DX: S20.212A Contusion of left front wall of thorax, initial encounter (principal); W22.8XXA Striking against or struck by other objects, initial encounter; Y93.89 Activity, other specified; K44.9 Diaphragmatic hernia without obstruction or gangrene; I10 Essential (primary) hypertension; I25.2 Old myocardial infarction; J45.909 Unspecified asthma, uncomplicated; Z91.040 Latex allergy status; Z88.1 Allergy status to other antibiotic agents
CPT/HCPCS: 99283; 71046; 71101; A9270

== ENCOUNTER → 2019-02-09 | Outpatient (CLI) | payer MEDICARE ==
--- NOTE | 2019-02-09 14:48 | RADIOLOGY REPORT (SQ) ---
EXAM DESCRIPTION: CHEST PA/LATERAL COMPLETED DATE/TIME: 02/09/2019 1:35 pm REASON FOR STUDY: SHORTNESS OF BREATH COMPARISON: 11/24/2018 EXAM PARAMETERS: NUMBER OF VIEWS: two views TECHNIQUE: Digital Frontal and Lateral radiographic views of the chest acquired. RADIATION DOSE: NA LIMITATIONS: none FINDINGS: LUNGS AND PLEURA: The patient has known intrathoracic herniation on the right. New airsp gary disease in the right lower lung with cystic changes suggested, may be on the basis of pneumonia. Decrease in the subsegmental atelectasis or infiltrate in the left lower lung. No pneumothorax or pl eural effusion. MEDIASTINUM AND HILAR STRUCTURES: No masses or contour abnormalities. HEART AND VASCULAR STRUCTURES: Cardiomegaly, stable Heart normal size. No evidence for failure. BONES: No acute findings. HARDWARE: None in the chest. OTHER: No other significant finding. IMPRESSION: 1. The patient has a known history of intrathoracic herniation toward the right. 2. Since the prior study dated 11/24/2018, new finding of airspace disease in the right lower lung wi th cystic changes, may be on the basis of pneumonia. Correlation suggested. 3. Decrease in the linear subsegmental atelectasis or infiltrate in the left lower lung. TECHNICAL DOCUMENTATION: JOB ID: [id number] [employer]- All Rights Reserved Reading location - IP/workstation name: [email or web address]
== END ==
LOC: OD 13:19
PROVIDERS: ATTEND Family Medicine
DX: I51.7 Cardiomegaly (principal); R06.02 Shortness of breath
CPT/HCPCS: 71046

== ENCOUNTER → 2019-02-23 | Outpatient (CLI) | payer MEDICARE ==
--- NOTE | 2019-02-23 12:29 | RADIOLOGY REPORT (SQ) ---
EXAM DESCRIPTION: CHEST PA/LATERAL COMPLETED DATE/TIME: 02/23/2019 11:01 am REASON FOR STUDY: BRONCHOPNEUMONIA, UNSPECIFIED ORGANISM COMPARISON: None. TECHNIQUE: Single frontal radiographic view of the chest acquired. NUMBER OF VIEWS: One view. LIMITATIONS: None. FINDINGS: LUNGS AND PLEURA: No pneumothorax. Increased density in the right lung base, presumably d ue to increasing size of the anterior right diaphragmatic hernia which measures 12.5 cm in craniocaud ad dimension on the lateral projection, previously 10 cm. . No pleural effusion. MEDIASTINUM AND HILAR STRUCTURES: Small hiatus hernia. HEART AND VASCULAR STRUCTURES: Stable. BONES: No acute findings. HARDWARE: None in the chest. OTHER: No other significant finding. IMPRESSION: Increased density in the right lung base, presumably due to increasing size of the ante rior right diaphragmatic hernia which measures 12.5 cm in craniocaudad dimension on the lateral proje ction, previously 10 cm. TECHNICAL DOCUMENTATION: JOB ID: [id number] [place]-72 2010 [employer]- All Rights Reserved Reading location - IP/workstation name: [email or web address] [employer] [email or web address]
== END ==
LOC: OD 10:49
PROVIDERS: ATTEND Family Medicine
DX: J18.0 Bronchopneumonia, unspecified organism (principal)
CPT/HCPCS: 71046

== ENCOUNTER 2019-04-04 11:26 | Emergency (ER) | payer MEDICARE ==
[2019-04-04 11:46] LABS: ABSOLUTE LYMPHOCYTES (AUTO) 1.6 10^3/uL (0.5-4.7); ABSOLUTE MONOCYTES (AUTO) 0.4 10^3/uL (0.1-1.4); ABSOLUTE NEUT (AUTO) 3.4 10^3/uL (1.7-8.2); BASOPHILS % (AUTO) 0.7 % (0-2); EOSINOPHILS % (AUTO) 0.4 % (0-6); HEMATOCRIT 40.7 % (36.0-47.0); HEMOGLOBIN 13.8 g/dL (12.0-15.5); LYMPHOCYTES % (AUTO) 28.6 % (13-45); MEAN CORPUSCULAR HEMOGLOBIN 27.8 pg (27.0-33.4); MEAN CORPUSCULAR HGB CONC 33.8 g/dL (32.0-36.0); MEAN CORPUSCULAR VOLUME 82 fl (80-97); MONOCYTES % (AUTO) 8.2 % (3-13); PLATELET COUNT 185 10^3/uL (150-450); RED BLOOD COUNT 4.95 10^6/uL (3.72-5.28); RED CELL DISTRIBUTION WIDTH 15.3 % (11.5-14.0); SEGMENTED NEUTROPHILS % (AUTO) 62.1 % (42-78); TOTAL CELLS COUNTED % (AUTO) 100 %; WHITE BLOOD COUNT 5.5 10^3/uL (4.0-10.5)
[2019-04-04] MEDS ORDERED: NITROGLYCERIN 0.4 MG/TAB 25 TAB/BOTTLE SL PRN (11:49)
--- NOTE | 2019-04-04 11:54 | ER Document Report ---
ED Cardiac - General Chief Complaint: Chest Pain Stated Complaint: CHEST PAIN Time Seen by Provider: 04/04/19 11:32 Primary Care Provider: RUBI AGUIAR MD [Primary Care Provider] - Follow up as needed Notes: Patient is a 78-year-old female with a history of congestive heart failure, and NSTEMI, pneumonia and asthma who presents to the emergency department with a chief complaint of shortness of breath and chest pressure. Patient states last night around 11 PM she developed some shortness of breath. Patient states she initially thought it was her asthma and could feel in her bronchial tubes. Patient states she did not have wheezing. Patient states that throughout the night she the shortness of breath and chest pressure has seemed to have gotten worse. Patient states she felt like she needed to put multiple pillows underneath her head last night to help with her breathing. Patient denies nausea vomiting or diarrhea. Patient states she has been sneezing a lot and relates this to her allergies. Patient reports acid reflux. Patient states she does not smoke cigarettes. Patient also reports a productive cough with clear sputum. Patient states that the chest pain is located in the center and is nonradiating. Patient reports is intermittent in nature. Patient states EMS did give her 324 mg of aspirin and 1 nitro spray. Patient reports the nitro spray did decrease her pain level. TRAVEL OUTSIDE OF THE [place] IN LAST 30 DAYS: No - Related Data Allergies/Adverse Reactions: latex [Latex] Allergy (Intermediate, Verified 11/24/18 12:04) ITCHING levofloxacin [From Levaquin] Allergy (Unknown, Verified 11/24/18 12:04) Penicillins Adverse Reaction (Mild, Verified 11/24/18 12:04) Yeast infections ibuprofen [From Motrin] Adverse Reaction (Verified 11/24/18 12:04) Past Medical History - General Information source: Patient - Social History Smoking Status: Never Smoker Chew tobacco use (# tins/day): No Frequency of alcohol use: Social Drug Abuse: None Lives with: Alone Family History: Reviewed & Not Pertinent, DM, Hypertension, Malignancy Patient has suicidal ideation: No Patient has homicidal ideation: No - Past Medical History Cardiac Medical History: Reports: Hx Heart Attack - nonstemi 2018, Hx Hypercholesterolemia, Hx Hypertension Denies: Hx Congestive Heart Failure, Hx Coronary Artery Disease, Hx Pulmonary Embolism Pulmonary Medical History: Reports: Hx Asthma, Hx Bronchitis, Hx Pneumonia Comment Only: Hx COPD - States she has not been diagnosed with COPD EENT Medical History: Reports: None Neurological Medical History: Reports: None. Denies: Hx Cerebrovascular Accident, Hx Migraine, Hx Seizures Endocrine Medical History: Reports: None Renal/ Medical History: Reports: None. Denies: Hx Peritoneal Dialysis Malignancy Medical History: Reports: None GI Medical History: Reports: Hx Gastroesophageal Reflux Disease, Hx Hiatal Hernia. Denies: Hx Hepatitis, Hx Ulcer Musculoskeletal Medical History: Reports Hx Arthritis Skin Medical History: Reports None Psychiatric Medical History: Reports: Hx Depression - on occassion Traumatic Medical History: Reports: None Infectious Medical History: Reports: None. Denies: Hx Hepatitis Past Surgical History: Reports: Hx Abdominal Surgery - ODELL, Hx Appendectomy, Hx Orthopedic Surgery, Hx Tonsillectomy. Denies: Hx Hysterectomy, Hx Mastectomy, Hx Open Heart Surgery, Hx Pacemaker - Immunizations Hx Diphtheria, Pertussis, Tetanus Vaccination: No Hx Pneumococcal Vaccination: 07/10/15 Review of Systems - Review of Systems Constitutional: No symptoms reported EENT: No symptoms reported Cardiovascular: See HPI Respiratory: See HPI Gastrointestinal: See HPI Genitourinary: No symptoms reported Female Genitourinary: No symptoms reported Musculoskeletal: No symptoms reported Skin: No symptoms reported Hematologic/Lymphatic: No symptoms reported Neurological/Psychological: No symptoms reported Physical Exam - Vital signs Vitals: Resp BP Pulse Ox 12 157/84 H 98 04/04/19 11:32 04/04/19 11:32 04/04/19 11:32 - Notes Notes: GENERAL: Well-appearing, well-nourished and in no acute distress. HEAD: Atraumatic, normocephalic. EYES: Pupils equal round and reactive to light, extraocular movements intact, sclera anicteric, conjunctiva are normal. ENT: Nares patent, oropharynx clear without exudates. Moist mucous membranes. NECK: Normal range of motion, supple without lymphadenopathy or JVD. LUNGS: Breath sounds clear to auscultation bilaterally and equal. No wheezes rales or rhonchi. HEART: Regular rate and rhythm without murmurs, rubs or gallops. No reproducible chest pain with palpation. ABDOMEN: Soft, nontender, normoactive bowel sounds. No guarding, no rebound. No masses appreciated. BACK: No cervical, thoracic, lumbar midline tenderness. No saddle anesthesia, normal distal neurovascular exam. GENITOURINARY: Deferred. EXTREMITIES: Normal range of motion, no pitting or edema. No clubbing or cyanosis. NEUROLOGICAL: Cranial nerves II through XII grossly intact. Normal speech, norm al gait. PSYCH: Normal mood, normal affect. SKIN: Warm, Dry, normal turgor, no rashes or lesions noted. Course - Re-evaluation Re-evalutation: 04/04/19 11:53 Will obtain a cardiac work-up, will give a sublingual nitroglycerin as this did seem to help with the patient's discomfort when given by EMS. If the sublingual nitro was effective we will place the Nitropaste. Patient is nontoxic-appearing and currently in no acute distress. Patient's heart score is a 5. 04/04/19 13:09 Patient's chest pain was relieved with sublingual nitro. Nitropaste was placed. Due to patient's heart score of 5 and possible pneumonia did speak with Dr. Florence his covering for her primary care physician Dr. Aguiar and will admit to [facility]. Patient has a known hernia containing bowel on the right side as stated in the chest x-ray. Patient does have a possible pneumonia although she has a negative white count, afebrile and is not hypoxic. We will go ahead and initiate Zithromax and Rocephin. Blood cultures have been obtained. - Vital Signs Vital signs: Temp Pulse Resp BP Pulse Ox 98 F 17 144/75 H 96 04/04/19 11:40 04/04/19 12:01 04/04/19 12:01 04/04/19 12:01 - Laboratory Result Diagrams: 04/04/19 11:32 04/04/19 11:32 Laboratory results interpreted by me: 04/04/19 11:32 RDW 15.3 H - Diagnostic Test Radiology reviewed: Reports reviewed Radiology results interpreted by me: 04/04/19 12:47 Chest X-Ray 04/04/19 11:27 IMPRESSION: Large right-sided anterior mediastinal hernia containing bowel. Superimposed opacity which may be pneumonia. It is not clear how much of the density overlying the right chest is related to the hernia and how much related to pneumonia. - EKG Interpretation by Me Additional EKG results interpreted by me: 04/04/19 11:56 Patient's EKG shows a sinus rhythm with a heart rate of 53, MO interval is 152, QT 500 and QTc is 470. Patient has a normal axis deviation. LVH is noted. Discharge - Discharge Clinical Impression: Shortness of breath Chest pain Qualifiers: Chest pain type: unspecified Qualified Code(s): R07.9 - Chest pain, unspecified Pneumonia Qualifiers: Pneumonia type: due to unspecified organism Laterality: right Lung location: lower lobe of lung Qualified Code(s): J18.1 - Lobar pneumonia, unspecified organism Condition: Stable Disposition: ADMITTED OBSERVATION Admitting Provider: [facility] Unit Admitted: [facility] Referrals: RUBI AGUIAR MD [Primary Care Provider] - Follow up as needed
[2019-04-04 12:00] LABS: ALANINE AMINOTRANSFERASE 29 U/L (9-52); ALBUMIN 4.3 g/dL (3.5-5.0); ALKALINE PHOSPHATASE 50 U/L (38-126); ANION GAP 6 (5-19); ASPARTATE AMINO TRANSFERASE 33 U/L (14-36); BILIRUBIN,DIRECT 0.3 mg/dL (0.0-0.4); BLOOD UREA NITROGEN 18 mg/dL (7-20); CALCIUM 9.9 mg/dL (8.4-10.2); CARBON DIOXIDE 28 mmol/L (22-30); CHLORIDE 103 mmol/L (98-107); CREATINE KINASE 70 U/L (30-135); GLUCOSE 97 mg/dL (75-110); TOTAL PROTEIN 6.8 g/dL (6.3-8.2)
[2019-04-04 12:09] LABS: CREATINE KINASE MB 2.03 ng/mL (<4.55)
[2019-04-04 12:16] LABS: TROPONIN I < 0.012 ng/mL
--- NOTE | 2019-04-04 12:19 | RADIOLOGY REPORT (SQ) ---
EXAM DESCRIPTION: CHEST SINGLE VIEW COMPLETED DATE/TIME: 04/04/2019 12:02 pm REASON FOR STUDY: chest pain COMPARISON: Prior chest x-rays. Prior CT in 2018. EXAM PARAMETERS: NUMBER OF VIEWS: One view. TECHNIQUE: Single frontal radiographic view of the chest acquired. RADIATION DOSE: NA LIMITATIONS: None. FINDINGS: LUNGS AND PLEURA: There is some opacity in the right lung which may be related to pneumoni a. This is increased since previous chest radiograph of 02/23/2019. Atelectasis/scarring at the left base. No pneumothorax. MEDIASTINUM AND HILAR STRUCTURES: Persistent large anterior right-sided hernia containing bowel. It is unclear how much opacity in the right chest is related to the hernia and how much related to pneum onia. Chronic tracheal deviation to the right. HEART AND VASCULAR STRUCTURES: Heart enlarged without failure. BONES: No acute findings. HARDWARE: None in the chest. OTHER: No other significant finding. IMPRESSION: Large right-sided anterior mediastinal hernia containing bowel. Superimposed opacity wh ich may be pneumonia. It is not clear how much of the density overlying the right chest is related t o the hernia and how much related to pneumonia. COMMENT: If there is clinical concern of increasing pneumonia, consider CT of the chest TECHNICAL DOCUMENTATION: JOB ID: [id number] [employer]- All Rights Reserved Reading location - IP/workstation name: [email or web address]
[2019-04-04] MEDS ORDERED: NITROGLYCERIN 2% OINTMENT 1 GM PACKET TP ONE (12:23)
[2019-04-04] MEDS ORDERED: AZITHROMYCIN INJ 500 MG VIAL IV ONE (12:50)
[2019-04-04] MEDS ORDERED: SIMETHICONE 80 MG TAB.CHEW PO ONE (13:37)
[2019-04-04] MEDS ORDERED: CEFTRIAXONE 1 GM/D5W RTU 1 GM/50 ML RTUPB IV ONE (14:30)
[2019-04-04] MEDS ORDERED: NORMAL SALINE 1000 ML 1,000 ML IV PRN (16:35)
[2019-04-04] MEDS ORDERED: ALBUTEROL SULFATE HFA (90 MCG/PUFF) 200 PUFF/8.5 GM MDI IH PRN (16:36)
[2019-04-04] MEDS ORDERED: (PENDING PHARMACY ID) (Mirabegron [Myrbetriq] 25 MG) PO SCH (16:45)
[2019-04-04 17:35] LABS: CREATINE KINASE MB 1.74 ng/mL (<4.55); NT PRO BNP 1690 pg/mL (<450); TROPONIN I < 0.012 ng/mL
[2019-04-04 17:37] LABS: APPEARANCE,URINE CLEAR; BILIRUBIN,URINE NEGATIVE (NEGATIVE); COLOR,URINE STRAW; GLUCOSE, URINE NEGATIVE (NEGATIVE); KETONES,URINE NEGATIVE (NEGATIVE); LEUKOCYTE ESTERASE,URINE SMALL (NEGATIVE); NITRITE,URINE NEGATIVE (NEGATIVE); PROTEIN,URINE NEGATIVE (NEGATIVE); URINE SPECIFIC GRAVITY 1.009; UROBILINOGEN,URINE NEGATIVE mg/dL (<2.0)
[2019-04-04] MEDS ORDERED: AZTREONAM INJ 1 GM VIAL IV SCH (18:00)
[2019-04-04] MEDS ORDERED: NYSTATIN OINTMENT 15 GM TUBE ONE (18:37)
--- NOTE | 2019-04-04 18:41 | RADIOLOGY REPORT (SQ) ---
EXAM DESCRIPTION: CT CHEST WITH COMPLETED DATE/TIME: 04/04/2019 6:28 pm REASON FOR STUDY: pneumonia COMPARISON: Multiple chest x-ray. Prior CT chest 2018. TECHNIQUE: CT scan of the chest performed using helical scanning technique with dynamic intravenous contrast injection. Images reviewed with lung, soft tissue and bone windows. Reconstructed coronal and sagittal MPR and MIP images reviewed. All images stored on PACS. All CT scanners at this facility use dose modulation, iterative reconstruction, and/or weight based d osing when appropriate to reduce radiation dose to as low as reasonably achievable (ALARA). [facility]: Dose Right [facility]: CareDose [facility]: Dose Right [facility]: Teradose 4D [facility]: Mercator MedSystems CONTRAST TYPE AND DOSE: contrast/concentration: Isovue 350.00 mg/ml; Total Contrast Delivered: 75.0 ml; Total Saline Delivered: 35.2 ml RENAL FUNCTION: GFR > 60. RADIATION DOSE: CT Rad equipment meets quality standard of care and radiation dose reduction techniq ues were employed. CTDIvol: 5.8 mGy. DLP: 203 mGy-cm. . LIMITATIONS: None. FINDINGS: LUNGS AND PLEURA: There are no parenchymal opacities in the lungs. The technically none p arenchymal opacities at the right lung base. HILAR AND MEDIASTINAL STRUCTURES: Large anterior right mediastinal hernia containing nonobstructed fara wel. Predominantly:. HEART AND VASCULAR STRUCTURES: No aneurysm or dissection. No central pulmonary emboli. No pericardi al effusion. HARDWARE: None in the chest. UPPER ABDOMEN: No significant findings. Limited exam. THYROID AND OTHER SOFT TISSUES: No masses. No adenopathy. BONES: Dorsal kyphosis. OTHER: No other significant finding. IMPRESSION: There are no acute infiltrates in the lungs. Large anterior right mediastinal hernia containing nonobstructed bowel accounts for the density in th e right chest. TECHNICAL DOCUMENTATION: JOB ID: [id number] Quality ID # [id number]: Final reports with documentation of one or more dose reduction techniques (e.g., Au tomated exposure control, adjustment of the mA and/or kV according to patient size, use of iterative reconstruction technique) 2010 [employer]- All Rights Reserved Reading location - IP/workstation name: [email or web address]
[2019-04-04] MEDS: MONTELUKAST SODIUM 10 MG TABLET PO SCH (18:48)
[2019-04-04] MEDS: GUAIFENESIN 600 MG TABLET.SA PO SCH (18:48)
[2019-04-04] MEDS: OLOPATADINE HCL 0.1% OPH SOLN 5 ML OU SCH (18:59)
[2019-04-04] MEDS: NYSTATIN OINTMENT 15 GM TUBE TOP SCH (19:00)
[2019-04-04] MEDS: ATORVASTATIN CALCIUM 20 MG TABLET PO SCH (21:14)
[2019-04-04] MEDS: FAMOTIDINE 20 MG TABLET PO SCH (21:14)
[2019-04-04] MEDS: METOPROLOL SUCCINATE 25 MG TAB.SR.24H PO SCH (21:14)
[2019-04-04] MEDS ORDERED: AZTREONAM 1 GM in DEXTROSE 5%-WATER 50 ML IV SCH (22:00)
--- NOTE | 2019-04-04 23:16 | EKG REPORT ---
SEVERITY:- ABNORMAL ECG - SINUS RHYTHM ATRIAL PREMATURE COMPLEX PROBABLE LVH WITH SECONDARY REPOL ABNRM : Confirmed by: Simran Pulliam 04-Apr-2019 23:15:10
[2019-04-05 01:35] LABS: CREATINE KINASE MB 1.49 ng/mL (<4.55)
[2019-04-05 01:40] LABS: TROPONIN I < 0.012 ng/mL
[2019-04-05] MEDS: PANTOPRAZOLE SODIUM 40 MG TABLET.DR PO SCH (05:04)
[2019-04-05 09:42] LABS: ABSOLUTE BASOPHILS # (AUTO) 0.1 10^3/uL (0.0-0.2); ABSOLUTE LYMPHOCYTES (AUTO) 1.6 10^3/uL (0.5-4.7); ABSOLUTE MONOCYTES (AUTO) 0.3 10^3/uL (0.1-1.4); EOSINOPHILS % (AUTO) 0.3 % (0-6); HEMATOCRIT 43.6 % (36.0-47.0); HEMOGLOBIN 14.5 g/dL (12.0-15.5); LYMPHOCYTES % (AUTO) 27.4 % (13-45); MEAN CORPUSCULAR HEMOGLOBIN 27.6 pg (27.0-33.4); MEAN CORPUSCULAR HGB CONC 33.2 g/dL (32.0-36.0); MEAN CORPUSCULAR VOLUME 83 fl (80-97); MONOCYTES % (AUTO) 4.5 % (3-13); PLATELET COUNT 181 10^3/uL (150-450); RED BLOOD COUNT 5.25 10^6/uL (3.72-5.28); RED CELL DISTRIBUTION WIDTH 15.4 % (11.5-14.0); SEGMENTED NEUTROPHILS % (AUTO) 66.8 % (42-78); TOTAL CELLS COUNTED % (AUTO) 100 %
[2019-04-05 10:02] LABS: CREATINE KINASE MB 1.59 ng/mL (<4.55)
[2019-04-05 10:03] LABS: ALANINE AMINOTRANSFERASE 19 U/L (9-52); ALBUMIN 4.2 g/dL (3.5-5.0); ALKALINE PHOSPHATASE 57 U/L (38-126); ANION GAP 12 (5-19); ASPARTATE AMINO TRANSFERASE 29 U/L (14-36); BILIRUBIN,DIRECT 0.3 mg/dL (0.0-0.4); BILIRUBIN,TOTAL 0.9 mg/dL (0.2-1.3); BLOOD UREA NITROGEN 13 mg/dL (7-20); CALCIUM 9.8 mg/dL (8.4-10.2); CARBON DIOXIDE 23 mmol/L (22-30); CHLORIDE 106 mmol/L (98-107); GLUCOSE 113 mg/dL (75-110); TOTAL PROTEIN 6.8 g/dL (6.3-8.2)
[2019-04-05 10:09] LABS: TROPONIN I < 0.012 ng/mL
[2019-04-05 10:10] LABS: POTASSIUM 3.9 mmol/L (3.6-5.0)
[2019-04-05] MEDS ORDERED: AZITHROMYCIN 500 MG in DEXTROSE 5%-WATER 250 ML IV SCH (12:00)
[2019-04-05] MEDS: OLOPATADINE HCL 0.1% OPH SOLN 5 ML OU SCH ×2 (12:09→18:02)
[2019-04-05] MEDS: NYSTATIN OINTMENT 15 GM TUBE TOP SCH ×2 (12:09→18:02)
[2019-04-05] MEDS: NITROGLYCERIN 5 MG (0.2 MG/HR) PATCH.TD24 TD SCH (12:10)
[2019-04-05] MEDS: FLUTICASONE/VILANTEROL 200-25 MCG/DOSE IH SCH (12:10)
[2019-04-05] MEDS: ENOXAPARIN SODIUM INJ 40 MG/0.4 ML DISP.SYRIN SUBCUT SCH (12:12)
[2019-04-05] MEDS: METOPROLOL SUCCINATE 25 MG TAB.SR.24H PO SCH ×2 (12:16→22:01)
[2019-04-05] MEDS: CITALOPRAM HYDROBROMIDE 20 MG TABLET PO SCH (12:16)
[2019-04-05] MEDS: CALCIUM CARBONATE 500 MG TAB.CHEW PO SCH (12:16)
[2019-04-05] MEDS: LOSARTAN POTASSIUM 50 MG TABLET PO SCH (12:17)
[2019-04-05] MEDS: THIAMINE HCL 100 MG TABLET PO SCH (12:17)
[2019-04-05] MEDS: GUAIFENESIN 600 MG TABLET.SA PO SCH ×2 (12:17→18:01)
[2019-04-05] MEDS: FAMOTIDINE 20 MG TABLET PO SCH ×2 (12:17→22:00)
--- NOTE | 2019-04-05 13:16 | PDOC H&P ---
History of Present Illness Admission Date/PCP: 04/04/19 13:17 RUBI AGUIAR MD History of Present Illness: BHUPINDER Walsh LADUE is a 78 year old female, she came to emergency room for evaluation of chest pain, shortness of breath, she apparently has a history of non-STEMI according to the ER record patient stated that she developed shortness of breath, she felt it was her asthma but she was not wheezing, in the emergency room she was evaluated it was felt that she has pneumonia on the chest x-ray but I was not overly impressed with the chest x-ray finding to suggest pneumonia there was no leukocytosis there was no fever I ordered a CT chest with contrast, CT showed no parenchymal opacities in the lung there was a 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 On direct questioning she told me she was diagnosed with this condition previously and she underwent surgery but it seems to have recur she also has severe kyphosis. The combination of Mediastinal hernia the kyphosis will account for her shortness of breath. I do not see pneumonia in this patient on there is no indication for antibiotic therapy Past Medical History Cardiac Medical History: Reports: Myocardial Infarction - nonstemi 2018, Hyperlipidema, Hypertension Pulmonary Medical History: Reports: Asthma, Bronchitis, Pneumonia Comment Only: Chronic Obstructive Pulmonary Disease (COPD) - States she has not been diagnosed with COPD EENT Medical History: Reports: None Neurological Medical History: Reports: None Endocrine Medical History: Reports: None Renal/ Medical History: Reports: None Malignancy Medical History: Reports: None GI Medical History: Reports: Gastroesophageal Reflux Disease, Hiatal Hernia Musculoskeltal Medical History: Reports: Arthritis Skin Medical History: Reports: None Psychiatric Medical History: Reports: Depression - on occassion Traumatic Medical History: Reports: None Hematology: Reports: Anemia Denies: Sickle Cell Disease Infectious Medical History: Reports: None Past Surgical History Past Surgical History: Reports: Appendectomy, Orthopedic Surgery, Tonsillectomy Social History Lives with: Alone Smoking Status: Never Smoker Frequency of Alcohol Use: Occasional Hx Recreational Drug Use: No Drugs: None Hx Prescription Drug Abuse: No Family History Family History: Reviewed & Not Pertinent, DM, Hypertension, Malignancy Parental Family History Reviewed: Yes Children Family History Reviewed: Yes Sibling(s) Family History Reviewed.: Yes Medication/Allergy Home Medications: Albuterol Sulfate [Proair HFA] 2 puff IH Q4HP PRN 06/06/18 Calcium Carbonate [Calcium] 600 mg PO DAILY 06/06/18 Losartan Potassium [Cozaar 50 mg Tablet] 100 mg PO DAILY 06/06/18 Montelukast Sodium [Singulair 10 mg Tablet] 10 mg PO QPM 06/06/18 Nystatin [Mycostatin Ointment 15 gm] 1 applic TOP BID 06/06/18 Olopatadine HCl [Patanol 0.1% Oph Soln 5 ml] 1 drop OU BID 06/06/18 Atorvastatin Calcium [Lipitor 20 mg Tablet] 20 mg PO QHS #30 tablet 06/09/18 Metoprolol Succinate [Toprol Xl 25 mg Tab.sr] 25 mg PO Q12 #60 tab.sr.24h 06/09/18 Mirabegron [Myrbetriq] 25 mg PO DAILY #30 tab.er.24h 06/09/18 Nitroglycerin [Nitro-Dur 5 mg (0.2 mg/Hr) Transdermal Patch] 1 each TD DAILY #30 patch.td24 06/09/18 Thiamine HCl [Thiamine 100 mg Tablet] 100 mg PO DAILY #60 tablet 06/09/18 Omeprazole 40 mg PO DAILY #14 capsule. 06/14/18 Guaifenesin [Mucinex] 600 mg PO BID #6 tablet.sa 10/13/18 Citalopram Hydrobromide [Celexa 40 mg Tablet] 1 tab PO DAILY 04/04/19 Fluticasone/Salmeterol [Advair 500-50 Diskus 14 Dose/Diskus] 1 inh IH Q12 04/04/19 Meloxicam [Mobic] 7.5 mg PO DAILY 04/04/19 Ranitidine HCl [Zantac] 300 mg PO DAILY 04/04/19 Allergies/Adverse Reactions: latex [Latex] Allergy (Intermediate, Verified 11/24/18 12:04) ITCHING levofloxacin [From Levaquin] Allergy (Unknown, Verified 11/24/18 12:04) Penicillins Adverse Reaction (Mild, Verified 11/24/18 12:04) Yeast infections ibuprofen [From Motrin] Adverse Reaction (Verified 11/24/18 12:04) Review of Systems Constitutional: ABSENT: chills, fever(s), headache(s), weight gain, weight loss Eyes: ABSENT: visual disturbances Ears: ABSENT: hearing changes Cardiovascular: ABSENT: chest pain, dyspnea on exertion, edema, orthropnea, palpitations Respiratory: PRESENT: cough, dyspnea Gastrointestinal: ABSENT: abdominal pain, constipation, diarrhea, hematemesis, hematochezia, nausea, vomiting Genitourinary: ABSENT: dysuria, hematuria Musculoskeletal: ABSENT: joint swelling Integumentary: ABSENT: rash, wounds Neurological: ABSENT: abnormal gait, abnormal speech, confusion, dizziness, focal weakness, syncope Psychiatric: ABSENT: anxiety, depression, homidical ideation, suicidal ideation Endocrine: ABSENT: cold intolerance, heat intolerance, menstrual abnormalities, polydipsia, polyuria Hematologic/Lymphatic: ABSENT: easy bleeding, easy bruising, lymphadenopathy Physical Exam Vital Signs: Temp Pulse Resp BP Pulse Ox 97.3 F 63 20 140/80 H 96 04/05/19 11:35 04/05/19 11:35 04/05/19 11:35 04/05/19 13:02 04/05/19 11:35 Intake & Output 04/04/19 04/05/19 04/06/19 06:59 06:59 06:59 Intake Total 250 1000 Output Total 2300 Balance -2049 1000 Weight 59.6 kg General appearance: PRESENT: no acute distress Head exam: PRESENT: atraumatic, normocephalic Eye exam: PRESENT: conjunctiva pink, EOMI, PERRLA Ear exam: PRESENT: normal external ear exam Mouth exam: PRESENT: moist, tongue midline Neck exam: PRESENT: full ROM Respiratory exam: PRESENT: clear to auscultation candelario, other - Kyphosis Cardiovascular exam: PRESENT: RRR, +S1, +S2 Vascular exam: PRESENT: normal capillary refill GI/Abdominal exam: PRESENT: normal bowel sounds, soft Rectal exam: PRESENT: deferred Neurological exam: PRESENT: alert, CN II-XII grossly intact Psychiatric exam: PRESENT: appropriate affect, normal mood Skin exam: PRESENT: dry, intact, warm Results Laboratory Results: 04/05/19 09:06 04/05/19 09:06 04/04/19 04/05/19 04/05/19 17:20 09:06 09:06 WBC 6.0 RBC 5.25 Hgb 14.5 Hct 43.6 MCV 83 MCH 27.6 MCHC 33.2 RDW 15.4 H Plt Count 181 Seg Neutrophils % 66.8 Lymphocytes % 27.4 Monocytes % 4.5 Eosinophils % 0.3 Basophils % 1.0 Absolute Neutrophils 4.0 Absolute Lymphocytes 1.6 Absolute Monocytes 0.3 Absolute Eosinophils 0.0 Absolute Basophils 0.1 Sodium 140.6 Potassium 3.9 D Chloride 106 Carbon Dioxide 23 Anion Gap 12 BUN 13 Creatinine 0.57 Est GFR ( Amer) > 60 Est GFR (Non-Af Amer) > 60 Glucose 113 H Calcium 9.8 Total Bilirubin 0.9 AST 29 ALT 19 Alkaline Phosphatase 57 Total Protein 6.8 Albumin 4.2 Urine Color STRAW Urine Appearance CLEAR Urine pH 6.0 Ur Specific [place] 1.009 Urine Protein NEGATIVE Urine Glucose (UA) NEGATIVE Urine Ketones NEGATIVE Urine Blood SMALL H Urine Nitrite NEGATIVE Ur Leukocyte Esterase SMALL H Urine WBC (Auto) 4 Urine RBC (Auto) 0 04/04/19 04/04/19 04/04/19 11:32 11:32 16:52 Creatine Kinase 70 58 CK-MB (CK-2) 2.03 Troponin I < 0.012 NT-Pro-B Natriuret Pep 04/04/19 04/05/19 04/05/19 16:52 00:46 00:46 Creatine Kinase 57 CK-MB (CK-2) 1.74 1.49 Troponin I < 0.012 < 0.012 NT-Pro-B Natriuret Pep 1690 H 04/05/19 04/05/19 09:06 09:06 Creatine Kinase 63 CK-MB (CK-2) 1.59 Troponin I < 0.012 NT-Pro-B Natriuret Pep Impressions: Chest CT 04/04/19 00:00 IMPRESSION: There are no acute infiltrates in the lungs. Large anterior right mediastinal hernia containing nonobstructed bowel accounts for the density in the right chest. Chest X-Ray 04/04/19 11:27 IMPRESSION: Large right-sided anterior mediastinal hernia containing bowel. Superimposed opacity which may be pneumonia. It is not clear how much of the density overlying the right chest is related to the hernia and how much related to pneumonia. Assessment & Plan - Diagnosis (1) Chest pain Qualifiers: Chest pain type: unspecified Qualified Code(s): R07.9 - Chest pain, unspecified Is this a current diagnosis for this admission?: Yes Plan: The chest pain is most likely from the combination of mediastinal hernia, costochondritis, kyphosis (2) Diaphragmatic hernia Qualifiers: Obstruction and gangrene presence: without obstruction or gangrene Qualified Code(s): K44.9 - Diaphragmatic hernia without obstruction or gangrene Is this a current diagnosis for this admission?: Yes (3) Hernia, mediastinum Is this a current diagnosis for this admission?: Yes (4) Scoliosis (and kyphoscoliosis), idiopathic Is this a current diagnosis for this admission?: Yes
[2019-04-05 13:44] LABS: ARTERIAL BLOOD BASE EXCESS -2.7 mmol/L; ARTERIAL BLOOD H2CO3 1.05 mmol/L (1.05-1.35); ARTERIAL BLOOD HCO3 21.3 mmol/L (20-24); ARTERIAL BLOOD O2 SATURATION 96.2 % (94-98); ARTERIAL BLOOD PCO2 34.8 mmHg (35-45); ARTERIAL BLOOD PO2 81.6 mmHg (80-100); ARTERIAL BLOOD TOTAL CO2 22.3 mmol/L (21-25)
[2019-04-05 13:45] LABS: ARTERIAL BLOOD FIO2 21%
[2019-04-05] MEDS: ACETAMINOPHEN 325 MG TABLET PO PRN (18:01)
[2019-04-05] MEDS: MONTELUKAST SODIUM 10 MG TABLET PO SCH (18:01)
[2019-04-05] MEDS ORDERED: SIMETHICONE 40 MG/0.6 ML DROPS 30ML PO ONE (19:10)
[2019-04-05] MEDS ORDERED: SIMETHICONE 40 MG/0.6 ML DROPS 30ML ONE (21:46)
[2019-04-05] MEDS: ATORVASTATIN CALCIUM 20 MG TABLET PO SCH (22:00)
[2019-04-06] MEDS: ACETAMINOPHEN 325 MG TABLET PO PRN ×3 (03:53→21:30)
[2019-04-06] MEDS: PANTOPRAZOLE SODIUM 40 MG TABLET.DR PO SCH (05:23)
[2019-04-06 07:00] LABS: ABSOLUTE BASOPHILS # (AUTO) 0.1 10^3/uL (0.0-0.2); ABSOLUTE LYMPHOCYTES (AUTO) 1.7 10^3/uL (0.5-4.7); ABSOLUTE MONOCYTES (AUTO) 0.5 10^3/uL (0.1-1.4); ABSOLUTE NEUT (AUTO) 4.1 10^3/uL (1.7-8.2); EOSINOPHILS % (AUTO) 0.3 % (0-6); HEMATOCRIT 38.5 % (36.0-47.0); HEMOGLOBIN 13.1 g/dL (12.0-15.5); LYMPHOCYTES % (AUTO) 26.9 % (13-45); MEAN CORPUSCULAR HEMOGLOBIN 27.6 pg (27.0-33.4); MEAN CORPUSCULAR HGB CONC 34.1 g/dL (32.0-36.0); MEAN CORPUSCULAR VOLUME 81 fl (80-97); MONOCYTES % (AUTO) 8.4 % (3-13); PLATELET COUNT 169 10^3/uL (150-450); RED BLOOD COUNT 4.77 10^6/uL (3.72-5.28); RED CELL DISTRIBUTION WIDTH 15.1 % (11.5-14.0); SEGMENTED NEUTROPHILS % (AUTO) 63.4 % (42-78); TOTAL CELLS COUNTED % (AUTO) 100 %; WHITE BLOOD COUNT 6.4 10^3/uL (4.0-10.5)
[2019-04-06 07:17] LABS: ALANINE AMINOTRANSFERASE 18 U/L (9-52); ALBUMIN 3.7 g/dL (3.5-5.0); ALKALINE PHOSPHATASE 50 U/L (38-126); ANION GAP 7 (5-19); ASPARTATE AMINO TRANSFERASE 23 U/L (14-36); BILIRUBIN,DIRECT 0.2 mg/dL (0.0-0.4); BILIRUBIN,TOTAL 0.9 mg/dL (0.2-1.3); BLOOD UREA NITROGEN 16 mg/dL (7-20); CALCIUM 9.3 mg/dL (8.4-10.2); CARBON DIOXIDE 27 mmol/L (22-30); CHLORIDE 99 mmol/L (98-107); GLUCOSE 106 mg/dL (75-110); POTASSIUM 4.3 mmol/L (3.6-5.0)
--- NOTE | 2019-04-06 09:29 | PDOC PROGRESS REPORT ---
Subjective Progress Note for:: 04/06/19 Subjective:: Patient was admitting in the hospital for the chest pain and not feeling well and patient's all the CT of the chest consistent with the hiatal hernia and patient cardiac enzyme is all negative She is feeling better this morning denied any chest pain to than any shortness of the breath Followed Dr. Trujillo as outpatients for ongoing cardiac issue we can start him Have a some questionable UTI support of the Macrobid Reason For Visit: CHEST PAIN,LARGE HAITAL HERNIA Physical Exam Vital Signs: Temp Pulse Resp BP Pulse Ox 97.6 F 58 L 18 144/80 H 94 04/06/19 04:17 04/06/19 07:00 04/06/19 04:17 04/06/19 04:17 04/06/19 04:17 Intake & Output 04/05/19 04/06/19 04/07/19 06:59 06:59 06:59 Intake Total 250 2360 Output Total 2300 1700 Balance -2050 660 Weight 59.6 kg General appearance: PRESENT: no acute distress, well-developed, well-nourished Head exam: PRESENT: atraumatic, normocephalic Eye exam: PRESENT: conjunctiva pink, EOMI, PERRLA. ABSENT: scleral icterus Ear exam: PRESENT: normal external ear exam Mouth exam: PRESENT: moist, tongue midline Neck exam: PRESENT: full ROM. ABSENT: carotid bruit, JVD, lymphadenopathy, thyromegaly Respiratory exam: PRESENT: clear to auscultation candelario Cardiovascular exam: PRESENT: RRR. ABSENT: diastolic murmur, rubs, systolic murmur Pulses: PRESENT: normal dorsalis pedis pul, +2 pedal pulses bilateral Vascular exam: PRESENT: normal capillary refill GI/Abdominal exam: PRESENT: normal bowel sounds, soft. ABSENT: distended, guarding, mass, organolmegaly, rebound, tenderness Rectal exam: PRESENT: deferred Musculoskeletal exam: PRESENT: ambulatory Neurological exam: PRESENT: alert, awake, oriented to person, oriented to place, oriented to time, oriented to situation, CN II-XII grossly intact. ABSENT: motor sensory deficit Psychiatric exam: PRESENT: appropriate affect, normal mood. ABSENT: homicidal ideation, suicidal ideation Skin exam: PRESENT: dry, intact, warm. ABSENT: cyanosis, rash Results Laboratory Results: 04/06/19 06:37 04/06/19 06:37 04/05/19 04/05/19 04/05/19 09:06 09:06 13:15 WBC 6.0 RBC 5.25 Hgb 14.5 Hct 43.6 MCV 83 MCH 27.6 MCHC 33.2 RDW 15.4 H Plt Count 181 Seg Neutrophils % 66.8 Lymphocytes % 27.4 Monocytes % 4.5 Eosinophils % 0.3 Basophils % 1.0 Absolute Neutrophils 4.0 Absolute Lymphocytes 1.6 Absolute Monocytes 0.3 Absolute Eosinophils 0.0 Absolute Basophils 0.1 Carbonic Acid 1.05 HCO3/H2CO3 Ratio 20:1 ABG pH 7.40 ABG pCO2 34.8 L ABG pO2 81.6 ABG HCO3 21.3 ABG O2 Saturation 96.2 ABG Base Excess -2.7 FiO2 21% Sodium 140.6 Potassium 3.9 D Chloride 106 Carbon Dioxide 23 Anion Gap 12 BUN 13 Creatinine 0.57 Est GFR ( Amer) > 60 Est GFR (Non-Af Amer) > 60 Glucose 113 H Calcium 9.8 Total Bilirubin 0.9 AST 29 ALT 19 Alkaline Phosphatase 57 Total Protein 6.8 Albumin 4.2 04/06/19 04/06/19 06:37 06:37 WBC 6.4 RBC 4.77 Hgb 13.1 Hct 38.5 MCV 81 MCH 27.6 MCHC 34.1 RDW 15.1 H Plt Count 169 Seg Neutrophils % 63.4 Lymphocytes % 26.9 Monocytes % 8.4 Eosinophils % 0.3 Basophils % 1.0 Absolute Neutrophils 4.1 Absolute Lymphocytes 1.7 Absolute Monocytes 0.5 Absolute Eosinophils 0.0 Absolute Basophils 0.1 Carbonic Acid HCO3/H2CO3 Ratio ABG pH ABG pCO2 ABG pO2 ABG HCO3 ABG O2 Saturation ABG Base Excess FiO2 Sodium 133.2 L Potassium 4.3 Chloride 99 Carbon Dioxide 27 Anion Gap 7 BUN 16 Creatinine 0.56 Est GFR ( Amer) > 60 Est GFR (Non-Af Amer) > 60 Glucose 106 Calcium 9.3 Total Bilirubin 0.9 AST 23 ALT 18 Alkaline Phosphatase 50 Total Protein 6.0 L Albumin 3.7 04/04/19 17:20 Clean Catch Midstream Urine Culture - Final Enterococcus Faecalis(Group D) 04/04/19 17:58 Sputum Gram Stain - Final 04/04/19 17:58 Sputum Sputum Culture - Final 04/04/19 04/04/19 04/04/19 11:32 11:32 16:52 Creatine Kinase 70 58 CK-MB (CK-2) 2.03 Troponin I < 0.012 NT-Pro-B Natriuret Pep 04/04/19 04/05/19 04/05/19 16:52 00:46 00:46 Creatine Kinase 57 CK-MB (CK-2) 1.74 1.49 Troponin I < 0.012 < 0.012 NT-Pro-B Natriuret Pep 1690 H 04/05/19 04/05/19 09:06 09:06 Creatine Kinase 63 CK-MB (CK-2) 1.59 Troponin I < 0.012 NT-Pro-B Natriuret Pep Impressions: Chest CT 04/04/19 00:00 IMPRESSION: There are no acute infiltrates in the lungs. Large anterior right mediastinal hernia containing nonobstructed bowel accounts for the density in the right chest. Chest X-Ray 04/04/19 11:27 IMPRESSION: Large right-sided anterior mediastinal hernia containing bowel. Superimposed opacity which may be pneumonia. It is not clear how much of the density overlying the right chest is related to the hernia and how much related to pneumonia. Assessment & Plan - Diagnosis (1) Chest pain Qualifiers: Chest pain type: unspecified Qualified Code(s): R07.9 - Chest pain, unspecified Is this a current diagnosis for this admission?: Yes Plan: We consulted the rn teacher (2) Diaphragmatic hernia Qualifiers: Obstruction and gangrene presence: without obstruction or gangrene Qualified Code(s): K44.9 - Diaphragmatic hernia without obstruction or gangrene Is this a current diagnosis for this admission?: Yes Plan: Continues to PPI (3) Shortness of breath Is this a current diagnosis for this admission?: Yes Plan: Currently all resolved (4) Asthma Qualifiers: Asthma severity: mild Is this a current diagnosis for this admission?: Yes Plan: Continues to current medication (5) Hyperlipidemia Qualifiers: Hyperlipidemia type: other hyperlipidemia Is this a current diagnosis for this admission?: Yes (6) Hypertension Qualifiers: Hypertension type: essential hypertension Qualified Code(s): I10 - Essential (primary) hypertension Is this a current diagnosis for this admission?: Yes (7) Scoliosis (and kyphoscoliosis), idiopathic Is this a current diagnosis for this admission?: Yes (8) Urinary frequency Is this a current diagnosis for this admission?: Yes Plan: Start the patient on the Macrobid - Time Time Spent with patient: 15-24 minutes Medications reviewed and adjusted accordingly: Yes Anticipated discharge: Home with Homehealth Within: Other - Plan Summary Plan Summary: We will consult the rn teacher if it clear we will get the physical therapy if is all okay hopefully discharge tomorrow
[2019-04-06] MEDS: OLOPATADINE HCL 0.1% OPH SOLN 5 ML OU SCH ×2 (09:37→17:46)
[2019-04-06] MEDS: NITROGLYCERIN 5 MG (0.2 MG/HR) PATCH.TD24 TD SCH (09:37)
[2019-04-06] MEDS: METOPROLOL SUCCINATE 25 MG TAB.SR.24H PO SCH ×2 (09:38→21:20)
[2019-04-06] MEDS: THIAMINE HCL 100 MG TABLET PO SCH (09:38)
[2019-04-06] MEDS: NYSTATIN OINTMENT 15 GM TUBE TOP SCH ×2 (09:38→17:46)
[2019-04-06] MEDS: ENOXAPARIN SODIUM INJ 40 MG/0.4 ML DISP.SYRIN SUBCUT SCH (09:38)
[2019-04-06] MEDS: CALCIUM CARBONATE 500 MG TAB.CHEW PO SCH (09:38)
[2019-04-06] MEDS: FAMOTIDINE 20 MG TABLET PO SCH ×2 (09:38→21:19)
[2019-04-06] MEDS: LOSARTAN POTASSIUM 50 MG TABLET PO SCH (09:38)
[2019-04-06] MEDS: CITALOPRAM HYDROBROMIDE 20 MG TABLET PO SCH (09:38)
[2019-04-06] MEDS: GUAIFENESIN 600 MG TABLET.SA PO SCH ×2 (09:38→17:46)
[2019-04-06] MEDS: FLUTICASONE/VILANTEROL 200-25 MCG/DOSE IH SCH (09:39)
[2019-04-06] MEDS: NITROFURANTOIN MONOHYD/M-CRYST 100 MG CAPSULE PO SCH ×2 (11:17→17:46)
[2019-04-06] MEDS: MONTELUKAST SODIUM 10 MG TABLET PO SCH (17:46)
[2019-04-06] MEDS: ATORVASTATIN CALCIUM 20 MG TABLET PO SCH (21:20)
--- NOTE | 2019-04-06 22:31 | PDOC CONSULTATION ---
Consultation-Blank Consultation: CARDIOLOGY CONSULTATION by Dr. Peg Trujillo on 04/06/2019. Patient seen at 11:45 AM. 60 minutes spent on this patient more than 50% of time spent in direct patient carre. REASON FOR CONSULTATION: Patient admitted with chest pain or shortness of breath. Patient has a known history of coronary artery disease and history of non-ST elevation [place] in the past. Caps consult REQUESTING PHYSICIAN: Dr. Bai. HISTORY PRESENT ILLNESS: Patient is a 78-year-old female with known history of coronary artery disease prior history of non-ST elevation [place], and abnormal stress test who refused cardiac catheterization admitted with chest pain. She also complains of shortness of breath. The patient is not a very good historian and the chest pain seems to be positional. It does not occur with exertion. 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 She also has significant psych kyphosis causing shortness of breath. She has she has a history of asthma and COPD. But these remain stable and are not because of the patient's shortness of breath. There is no palpitations. Near syncope or syncope. She denies any wheezing, cough or sputum production. She also has chest wall pain partially reproducing her symptoms. Her symptoms are noncardiac chest pain and the shortness of breath is more due to her kyphosis rather than any intrinsic lung problem. Past Medical History Cardiac Medical History: Reports: Myocardial Infarction - nonstemi 2018, Hyperlipidema, Hypertension Pulmonary Medical History: Reports: Asthma, Bronchitis, Pneumonia Comment Only: Chronic Obstructive Pulmonary Disease (COPD) - States she has not been diagnosed with COPD EENT Medical History: Reports: None Neurological Medical History: Reports: None Endocrine Medical History: Reports: None Renal/ Medical History: Reports: None Malignancy Medical History: Reports: None GI Medical History: Reports: Gastroesophageal Reflux Disease, Hiatal Hernia Musculoskeltal Medical History: Reports: Arthritis Skin Medical History: Reports: None Psychiatric Medical History: Reports: Depression - on occassion Traumatic Medical History: Reports: None Hematology: Reports: Anemia Denies: Sickle Cell Disease Infectious Medical History: Reports: None Past Surgical History Past Surgical History: Reports: Appendectomy, Orthopedic Surgery, Tonsillectomy Social History Lives with: Alone Smoking Status: Never Smoker Frequency of Alcohol Use: Occasional Hx Recreational Drug Use: No Drugs: None Hx Prescription Drug Abuse: No Family History Family History: Reviewed & Not Pertinent, DM, Hypertension, Malignancy Parental Family History Reviewed: Yes Children Family History Reviewed: Yes Sibling(s) Family History Reviewed.: Yes Medication/Allergy Home Medications: Albuterol Sulfate [Proair HFA] 2 puff IH Q4HP PRN 06/06/18 Calcium Carbonate [Calcium] 600 mg PO DAILY 06/06/18 Losartan Potassium [Cozaar 50 mg Tablet] 100 mg PO DAILY 06/06/18 Montelukast Sodium [Singulair 10 mg Tablet] 10 mg PO QPM 06/06/18 Nystatin [Mycostatin Ointment 15 gm] 1 applic TOP BID 06/06/18 Olopatadine HCl [Patanol 0.1% Oph Soln 5 ml] 1 drop OU BID 06/06/18 Atorvastatin Calcium [Lipitor 20 mg Tablet] 20 mg PO QHS #30 tablet 06/09/18 Metoprolol Succinate [Toprol Xl 25 mg Tab.sr] 25 mg PO Q12 #60 tab.sr.24h 06/09/18 Mirabegron [Myrbetriq] 25 mg PO DAILY #30 tab.er.24h 06/09/18 Nitroglycerin [Nitro-Dur 5 mg (0.2 mg/Hr) Transdermal Patch] 1 each TD DAILY #30 patch.td24 06/09/18 Thiamine HCl [Thiamine 100 mg Tablet] 100 mg PO DAILY #60 tablet 06/09/18 Omeprazole 40 mg PO DAILY #14 capsule. 06/14/18 Guaifenesin [Mucinex] 600 mg PO BID #6 tablet.sa 10/13/18 Citalopram Hydrobromide [Celexa 40 mg Tablet] 1 tab PO DAILY 04/04/19 Fluticasone/Salmeterol [Advair 500-50 Diskus 14 Dose/Diskus] 1 inh IH Q12 04/04/19 Meloxicam [Mobic] 7.5 mg PO DAILY 04/04/19 Ranitidine HCl [Zantac] 300 mg PO DAILY 04/04/19 RESUSCITATION STATUS: The patient is a full code. The patient's daughter is her surrogate healthcare decision maker. Allergies/Adverse Reactions: latex [Latex] Allergy (Intermediate, Verified 11/24/18 12:04) ITCHING levofloxacin [From Levaquin] Allergy (Unknown, Verified 11/24/18 12:04) Penicillins Adverse Reaction (Mild, Verified 11/24/18 12:04) Yeast infections ibuprofen [From Motrin] Adverse Reaction (Verified 11/24/18 12:04) Review of Systems Constitutional: ABSENT: chills, fever(s), headache(s), weight gain, weight loss Eyes: ABSENT: visual disturbances Ears: ABSENT: hearing changes Cardiovascular: ABSENT: chest pain, dyspnea on exertion, edema, orthropnea, palpitations Respiratory: PRESENT: cough, dyspnea Gastrointestinal: ABSENT: abdominal pain, constipation, diarrhea, hematemesis, hematochezia, nausea, vomiting Genitourinary: ABSENT: dysuria, hematuria Musculoskeletal: ABSENT: joint swelling Integumentary: ABSENT: rash, wounds Neurological: ABSENT: abnormal gait, abnormal speech, confusion, dizziness, focal weakness, syncope Psychiatric: ABSENT: anxiety, depression, homidical ideation, suicidal ideation Endocrine: ABSENT: cold intolerance, heat intolerance, menstrual abnormalities, polydipsia, polyuria Hematologic/Lymphatic: ABSENT: easy bleeding, easy bruising, lymphadenopathy PHYSICAL EXAMINATION: The patient is a frail build and appears to be chronically ill. At present she has no chest pain and no shortness breath at rest. Selected Entries 04/06/19 12:02 Temperature 97.6 F Temperature Oral Source Pulse Rate 56 L Respiratory 17 Rate Blood Pressure 158/79 H Blood Pressure 105 Mean BP Location Right Arm BP Position Supine O2 Sat by Pulse 97 Oximetry Oxygen Delivery Room Air Method Head: Is atraumatic normocephalic. EYES: Pupils equal round regular reactive light accommodation. Extraocular movements are normal. There is no conjunctival pallor. There is no scleral icterus. ENT is negative. NECK: Supple. There is no JVD. Carotids equal there is no bruits. There is no lym phadenopathy. There is no goiter. THERE IS NO LYMPHADENOPATHY. THERE IS NO ACCESSORY MUSCLE RESPIRATION USE. Lungs: The patient has significant kyphosis. Lungs are clear to auscultation function without any rhonchi rales wheezing. HEART: S1-S2 is heard. There is no S3 gallop. There is no S4 gallop. There is systolic murmur left sternal border and the apex there is no rub. ABDOMEN: Soft. Nontender. There is no hepatospleno megaly. Bowel sounds well heard. EXTREMITIES: Femorals are slightly diminished. There is no femoral bruits. Leg pulses are diminished. There is no DVT or cellulitis. There is no pedal edema. There is no calf tenderness. HYPNOTHERAPIST: The patient is conscious awake alert oriented x3 with no focal deficits. PSYCHIATRIC: The patient judgment insight are intact her affect is normal. EKG: Sinus rhythm with APCs. LVH with strain pattern. Labs- Entire Visit 04/04/19 04/04/19 04/04/19 11:32 11:32 11:32 WBC 5.5 RBC 4.95 Hgb 13.8 Hct 40.7 MCV 82 MCH 27.8 MCHC 33.8 RDW 15.3 H Plt Count 185 Seg Neutrophils % 62.1 Lymphocytes % 28.6 Monocytes % 8.2 Eosinophils % 0.4 Basophils % 0.7 Absolute Neutrophils 3.4 Absolute Lymphocytes 1.6 Absolute Monocytes 0.4 Absolute Eosinophils 0.0 Absolute Basophils 0.0 Carbonic Acid HCO3/H2CO3 Ratio ABG pH ABG pCO2 ABG pO2 ABG HCO3 ABG Total CO2 ABG O2 Saturation ABG Base Excess FiO2 Sodium 137.1 Potassium 5.0 Chloride 103 Carbon Dioxide 28 Anion Gap 6 BUN 18 Creatinine 0.57 Est GFR ( Amer) > 60 Est GFR (Non-Af Amer) > 60 Glucose 97 Hemoglobin A1c % Serum Osmolality Calcium 9.9 Total Bilirubin 1.0 Direct Bilirubin 0.3 Neonat Total Bilirubin Not Reportable Neonat Direct Bilirubin Not Reportable Neonat Indirect Bili Not Reportable AST 33 ALT 29 Alkaline Phosphatase 50 Creatine Kinase 70 CK-MB (CK-2) 2.03 Troponin I < 0.012 NT-Pro-B Natriuret Pep Total Protein 6.8 Albumin 4.3 TSH Urine Color Urine Appearance Urine pH Ur Specific In[place] Urine Protein Urine Glucose (UA) Urine Ketones Urine Blood Urine Nitrite Urine Bilirubin Urine Urobilinogen Ur Leukocyte Esterase Urine WBC (Auto) Urine RBC (Auto) Squamous Epi Cells Auto Urine Mucus (Auto) Urine Osmolality Urine Sodium Urine Ascorbic Acid 04/04/19 04/04/19 04/04/19 16:52 16:52 17:20 WBC RBC Hgb Hct MCV MCH MCHC RDW Plt Count Seg Neutrophils % Lymphocytes % Monocytes % Eosinophils % Basophils % Absolute Neutrophils Absolute Lymphocytes Absolute Monocytes Absolute Eosinophils Absolute Basophils Carbonic Acid HCO3/H2CO3 Ratio ABG pH ABG pCO2 ABG pO2 ABG HCO3 ABG Total CO2 ABG O2 Saturation ABG Base Excess FiO2 Sodium Potassium Chloride Carbon Dioxide Anion Gap BUN Creatinine Est GFR ( Amer) Est GFR (Non-Af Amer) Glucose Hemoglobin A1c % Serum Osmolality Calcium Total Bilirubin Direct Bilirubin Neonat Total Bilirubin Neonat Direct Bilirubin Neonat Indirect Bili AST ALT Alkaline Phosphatase Creatine Kinase 58 CK-MB (CK-2) 1.74 Troponin I < 0.012 NT-Pro-B Natriuret Pep 1690 H Total Protein Albumin TSH Urine Color STRAW Urine Appearance CLEAR Urine pH 6.0 Ur Specific [place] 1.009 Urine Protein NEGATIVE Urine Glucose (UA) NEGATIVE Urine Ketones NEGATIVE Urine Blood SMALL H Urine Nitrite NEGATIVE Urine Bilirubin NEGATIVE Urine Urobilinogen NEGATIVE Ur Leukocyte Esterase SMALL H Urine WBC (Auto) 4 Urine RBC (Auto) 0 Squamous Epi Cells Auto 3 Urine Mucus (Auto) RARE Urine Osmolality Urine Sodium Urine Ascorbic Acid NEGATIVE 04/05/19 04/05/19 04/05/19 00:46 00:46 09:06 WBC 6.0 RBC 5.25 Hgb 14.5 Hct 43.6 MCV 83 MCH 27.6 MCHC 33.2 RDW 15.4 H Plt Count 181 Seg Neutrophils % 66.8 Lymphocytes % 27.4 Monocytes % 4.5 Eosinophils % 0.3 Basophils % 1.0 Absolute Neutrophils 4.0 Absolute Lymphocytes 1.6 Absolute Monocytes 0.3 Absolute Eosinophils 0.0 Absolute Basophils 0.1 Carbonic Acid HCO3/H2CO3 Ratio ABG pH ABG pCO2 ABG pO2 ABG HCO3 ABG Total CO2 ABG O2 Saturation ABG Base Excess FiO2 Sodium Potassium Chloride Carbon Dioxide Anion Gap BUN Creatinine Est GFR ( Amer) Est GFR (Non-Af Amer) Glucose Hemoglobin A1c % Serum Osmolality Calcium Total Bilirubin Direct Bilirubin Neonat Total Bilirubin Neonat Direct Bilirubin Neonat Indirect Bili AST ALT Alkaline Phosphatase Creatine Kinase 57 CK-MB (CK-2) 1.49 Troponin I < 0.012 NT-Pro-B Natriuret Pep Total Protein Albumin TSH Urine Color Urine Appearance Urine pH Ur Specific [place] Urine Protein Urine Glucose (UA) Urine Ketones Urine Blood Urine Nitrite Urine Bilirubin Urine Urobilinogen Ur Leukocyte Esterase Urine WBC (Auto) Urine RBC (Auto) Squamous Epi Cells Auto Urine Mucus (Auto) Urine Osmolality Urine Sodium Urine Ascorbic Acid 04/05/19 04/05/19 04/05/19 09:06 09:06 09:06 WBC RBC Hgb Hct MCV MCH MCHC RDW Plt Count Seg Neutrophils % Lymphocytes % Monocytes % Eosinophils % Basophils % Absolute Neutrophils Absolute Lymphocytes Absolute Monocytes Absolute Eosinophils Absolute Basophils Carbonic Acid HCO3/H2CO3 Ratio ABG pH ABG pCO2 ABG pO2 ABG HCO3 ABG Total CO2 ABG O2 Saturation ABG Base Excess FiO2 Sodium 140.6 Potassium 3.9 D Chloride 106 Carbon Dioxide 23 Anion Gap 12 BUN 13 Creatinine 0.57 Est GFR ( Amer) > 60 Est GFR (Non-Af Amer) > 60 Glucose 113 H Hemoglobin A1c % 5.5 Serum Osmolality Calcium 9.8 Total Bilirubin 0.9 Direct Bilirubin 0.3 Neonat Total Bilirubin Not Reportable Neonat Direct Bilirubin Not Reportable Neonat Indirect Bili Not Reportable AST 29 ALT 19 Alkaline Phosphatase 57 Creatine Kinase 63 CK-MB (CK-2) Troponin I NT-Pro-B Natriuret Pep Total Protein 6.8 Albumin 4.2 TSH Urine Color Urine Appearance Urine pH Ur Specific [place] Urine Protein Urine Glucose (UA) Urine Ketones Urine Blood Urine Nitrite Urine Bilirubin Urine Urobilinogen Ur Leukocyte Esterase Urine WBC (Auto) Urine RBC (Auto) Squamous Epi Cells Auto Urine Mucus (Auto) Urine Osmolality Urine Sodium Urine Ascorbic Acid 04/05/19 04/05/19 04/06/19 09:06 13:15 06:37 WBC 6.4 RBC 4.77 Hgb 13.1 Hct 38.5 MCV 81 MCH 27.6 MCHC 34.1 RDW 15.1 H Plt Count 169 Seg Neutrophils % 63.4 Lymphocytes % 26.9 Monocytes % 8.4 Eosinophils % 0.3 Basophils % 1.0 Absolute Neutrophils 4.1 Absolute Lymphocytes 1.7 Absolute Monocytes 0.5 Absolute Eosinophils 0.0 Absolute Basophils 0.1 Carbonic Acid 1.05 HCO3/H2CO3 Ratio 20:1 ABG pH 7.40 ABG pCO2 34.8 L ABG pO2 81.6 ABG HCO3 21.3 ABG Total CO2 22.3 ABG O2 Saturation 96.2 ABG Base Excess -2.7 FiO2 21% Sodium Potassium Chloride Carbon Dioxide Anion Gap BUN Creatinine Est GFR ( Amer) Est GFR (Non-Af Amer) Glucose Hemoglobin A1c % Serum Osmolality Calcium Total Bilirubin Direct Bilirubin Neonat Total Bilirubin Neonat Direct Bilirubin Neonat Indirect Bili AST ALT Alkaline Phosphatase Creatine Kinase CK-MB (CK-2) 1.59 Troponin I < 0.012 NT-Pro-B Natriuret Pep Total Protein Albumin TSH Urine Color Urine Appearance Urine pH Ur Specific [place] Urine Protein Urine Glucose (UA) Urine Ketones Urine Blood Urine Nitrite Urine Bilirubin Urine Urobilinogen Ur Leukocyte Esterase Urine WBC (Auto) Urine RBC (Auto) Squamous Epi Cells Auto Urine Mucus (Auto) Urine Osmolality Urine Sodium Urine Ascorbic Acid 04/06/19 06:37 WBC RBC Hgb Hct MCV MCH MCHC RDW Plt Count Seg Neutrophils % Lymphocytes % Monocytes % Eosinophils % Basophils % Absolute Neutrophils Absolute Lymphocytes Absolute Monocytes Absolute Eosinophils Absolute Basophils Carbonic Acid HCO3/H2CO3 Ratio ABG pH ABG pCO2 ABG pO2 ABG HCO3 ABG Total CO2 ABG O2 Saturation ABG Base Excess FiO2 Sodium 133.2 L Potassium 4.3 Chloride 99 Carbon Dioxide 27 Anion Gap 7 BUN 16 Creatinine 0.56 Est GFR ( Amer) > 60 Est GFR (Non-Af Amer) > 60 Glucose 106 Hemoglobin A1c % Serum Osmolality Calcium 9.3 Total Bilirubin 0.9 Direct Bilirubin 0.2 Neonat Total Bilirubin Not Reportable Neonat Direct Bilirubin Not Reportable Neonat Indirect Bili Not Reportable AST 23 ALT 18 Alkaline Phosphatase 50 Creatine Kinase CK-MB (CK-2) Troponin I NT-Pro-B Natriuret Pep Total Protein 6.0 L Albumin 3.7 TSH Urine Color Urine Appearance Urine pH Ur Specific [place] Urine Protein Urine Glucose (UA) Urine Ketones Urine Blood Urine Nitrite Urine Bilirubin Urine Urobilinogen Ur Leukocyte Esterase Urine WBC (Auto) Urine RBC (Auto) Squamous Epi Cells Auto Urine Mucus (Auto) Urine Osmolality Urine Sodium Urine Ascorbic Acid Chest CT 04/04/19 00:00 IMPRESSION: There are no acute infiltrates in the lungs. Large anterior right mediastinal hernia containing nonobstructed bowel accounts for the density in the right chest. Chest X-Ray 04/04/19 11:27 IMPRESSION: Large right-sided anterior mediastinal hernia containing bowel. Superimposed opacity which may be pneumonia. It is not clear how much of the density overlying the right chest is related to the hernia and how much related to pneumonia. IMPRESSION/RECOMMENDATION: 1.Chest pain noncardiac. The patient's troponin I is negative. This is most likely secondary to the patient's large diaphragmatic hernia. 2. Shortness of breath secondary to her kyphosis. I do not see any evidence of a pneumonia in any acute lung pathology at present. 3. Hypertension: Blood pressure well controlled. 4. History of asthma and COPD: These seem to be stable 5. Large diaphragmatic hernia symptomatic. Patient would be high risk for recurrent surgery for this. Hence would treat her with medical measures. This 6. Coronary artery disease, history of non-ST elevation [place]: Stable continue anti-CAD medications. 7.Hyperlipidemia: Continue statin. Medications reviewed. Medication treatment and management plan discussed with Dr. Bai. Medical decision making I was of moderate complexity. Patient cardiac status is stable. Will sign off. 60 minutes spent on this patient more than 50% of time spent in direct patient care. Will follow the patient in the office as she is a patient of [facility], who sees me in the office. Will sign off.
[2019-04-07 04:46] LABS: ABSOLUTE BASOPHILS # (AUTO) 0.1 10^3/uL (0.0-0.2); ABSOLUTE LYMPHOCYTES (AUTO) 1.5 10^3/uL (0.5-4.7); ABSOLUTE MONOCYTES (AUTO) 0.5 10^3/uL (0.1-1.4); ABSOLUTE NEUT (AUTO) 4.4 10^3/uL (1.7-8.2); BASOPHILS % (AUTO) 0.8 % (0-2); EOSINOPHILS % (AUTO) 0.6 % (0-6); HEMATOCRIT 37.1 % (36.0-47.0); HEMOGLOBIN 12.9 g/dL (12.0-15.5); LYMPHOCYTES % (AUTO) 23.1 % (13-45); MEAN CORPUSCULAR HGB CONC 34.7 g/dL (32.0-36.0); MEAN CORPUSCULAR VOLUME 81 fl (80-97); MONOCYTES % (AUTO) 7.8 % (3-13); PLATELET COUNT 151 10^3/uL (150-450); RED CELL DISTRIBUTION WIDTH 14.6 % (11.5-14.0); SEGMENTED NEUTROPHILS % (AUTO) 67.7 % (42-78); TOTAL CELLS COUNTED % (AUTO) 100 %; WHITE BLOOD COUNT 6.5 10^3/uL (4.0-10.5)
[2019-04-07 05:03] LABS: ALANINE AMINOTRANSFERASE 14 U/L (9-52); ALBUMIN 3.4 g/dL (3.5-5.0); ALKALINE PHOSPHATASE 45 U/L (38-126); ANION GAP 10 (5-19); ASPARTATE AMINO TRANSFERASE 25 U/L (14-36); BILIRUBIN,DIRECT 0.2 mg/dL (0.0-0.4); BILIRUBIN,TOTAL 0.8 mg/dL (0.2-1.3); BLOOD UREA NITROGEN 17 mg/dL (7-20); CARBON DIOXIDE 24 mmol/L (22-30); CHLORIDE 94 mmol/L (98-107); GLUCOSE 144 mg/dL (75-110); POTASSIUM 3.8 mmol/L (3.6-5.0); TOTAL PROTEIN 5.8 g/dL (6.3-8.2)
[2019-04-07] MEDS: PANTOPRAZOLE SODIUM 40 MG TABLET.DR PO SCH (05:55)
[2019-04-07] MEDS ORDERED: NORMAL SALINE 1000 ML 1,000 ML IV PRN (08:30)
[2019-04-07] MEDS: ENOXAPARIN SODIUM INJ 40 MG/0.4 ML DISP.SYRIN SUBCUT SCH ×2 (10:17→10:26)
[2019-04-07] MEDS: NITROGLYCERIN 5 MG (0.2 MG/HR) PATCH.TD24 TD SCH (10:17)
[2019-04-07] MEDS: METOPROLOL SUCCINATE 25 MG TAB.SR.24H PO SCH ×2 (10:18→21:29)
[2019-04-07] MEDS: OLOPATADINE HCL 0.1% OPH SOLN 5 ML OU SCH ×2 (10:18→17:16)
[2019-04-07] MEDS: FLUTICASONE/VILANTEROL 200-25 MCG/DOSE IH SCH (10:18)
[2019-04-07] MEDS: NITROFURANTOIN MONOHYD/M-CRYST 100 MG CAPSULE PO SCH ×2 (10:18→17:16)
[2019-04-07] MEDS: CALCIUM CARBONATE 500 MG TAB.CHEW PO SCH (10:18)
[2019-04-07] MEDS: NYSTATIN OINTMENT 15 GM TUBE TOP SCH ×2 (10:18→17:16)
[2019-04-07] MEDS: THIAMINE HCL 100 MG TABLET PO SCH (10:18)
[2019-04-07] MEDS: LOSARTAN POTASSIUM 50 MG TABLET PO SCH (10:18)
[2019-04-07] MEDS: GUAIFENESIN 600 MG TABLET.SA PO SCH ×2 (10:18→17:16)
[2019-04-07] MEDS: FAMOTIDINE 20 MG TABLET PO SCH ×2 (10:21→21:30)
--- NOTE | 2019-04-07 12:16 | PDOC PROGRESS REPORT ---
Subjective Progress Note for:: 04/07/19 Subjective:: Patient is feeling much better denied any chest pain to than any shortness of the breath Patient seen by the tax compliance representative suggest no need for further evaluations follow outpatient Sodium is 128 today patient is currently not taking any Celexa not taking any meloxicam at home also Reason For Visit: CHEST PAIN,LARGE HAITAL HERNIA Physical Exam Vital Signs: Temp Pulse Resp BP Pulse Ox 98.0 F 64 18 166/78 H 91 L 04/07/19 07:52 04/07/19 07:52 04/07/19 07:52 04/07/19 07:52 04/07/19 07:52 Intake & Output 04/06/19 04/07/19 04/08/19 06:59 06:59 06:59 Intake Total 2360 1080 420 Output Total 1700 2050 500 Balance 660 -970 -80 Weight 62 kg General appearance: PRESENT: no acute distress, well-developed, well-nourished Head exam: PRESENT: atraumatic, normocephalic Eye exam: PRESENT: conjunctiva pink, EOMI, PERRLA. ABSENT: scleral icterus Ear exam: PRESENT: normal external ear exam Mouth exam: PRESENT: moist, tongue midline Neck exam: PRESENT: full ROM. ABSENT: carotid bruit, JVD, lymphadenopathy, thyromegaly Respiratory exam: PRESENT: clear to auscultation candelario Cardiovascular exam: PRESENT: RRR. ABSENT: diastolic murmur, rubs, systolic murmur Pulses: PRESENT: normal dorsalis pedis pul, +2 pedal pulses bilateral Vascular exam: PRESENT: normal capillary refill GI/Abdominal exam: PRESENT: normal bowel sounds, soft. ABSENT: distended, guarding, mass, organolmegaly, rebound, tenderness Rectal exam: PRESENT: deferred Extremities exam: ABSENT: pedal edema Musculoskeletal exam: PRESENT: ambulatory Neurological exam: PRESENT: alert, awake, oriented to person, oriented to place, oriented to time, oriented to situation, CN II-XII grossly intact. ABSENT: motor sensory deficit Psychiatric exam: PRESENT: appropriate affect, normal mood. ABSENT: homicidal ideation, suicidal ideation Skin exam: PRESENT: dry, intact, warm. ABSENT: cyanosis, rash Results Laboratory Results: 04/07/19 04:01 04/07/19 04:01 04/07/19 04/07/19 04:01 04:01 WBC 6.5 RBC 4.60 Hgb 12.9 Hct 37.1 MCV 81 MCH 28.0 MCHC 34.7 RDW 14.6 H Plt Count 151 Seg Neutrophils % 67.7 Lymphocytes % 23.1 Monocytes % 7.8 Eosinophils % 0.6 Basophils % 0.8 Absolute Neutrophils 4.4 Absolute Lymphocytes 1.5 Absolute Monocytes 0.5 Absolute Eosinophils 0.0 Absolute Basophils 0.1 Sodium 128.0 L Potassium 3.8 Chloride 94 L Carbon Dioxide 24 Anion Gap 10 BUN 17 Creatinine 0.60 Est GFR ( Amer) > 60 Est GFR (Non-Af Amer) > 60 Glucose 144 H Calcium 9.0 Total Bilirubin 0.8 AST 25 ALT 14 Alkaline Phosphatase 45 Total Protein 5.8 L Albumin 3.4 L 04/04/19 12:47 Blood Blood Culture - Final Bacillus Sp. Not Anthracis 04/04/19 04/04/19 04/04/19 11:32 11:32 16:52 Creatine Kinase 70 58 CK-MB (CK-2) 2.03 Troponin I < 0.012 NT-Pro-B Natriuret Pep 04/04/19 04/05/19 04/05/19 16:52 00:46 00:46 Creatine Kinase 57 CK-MB (CK-2) 1.74 1.49 Troponin I < 0.012 < 0.012 NT-Pro-B Natriuret Pep 1690 H 04/05/19 04/05/19 09:06 09:06 Creatine Kinase 63 CK-MB (CK-2) 1.59 Troponin I < 0.012 NT-Pro-B Natriuret Pep Impressions: Chest CT 04/04/19 00:00 IMPRESSION: There are no acute infiltrates in the lungs. Large anterior right mediastinal hernia containing nonobstructed bowel accounts for the density in the right chest. Chest X-Ray 04/04/19 11:27 IMPRESSION: Large right-sided anterior mediastinal hernia containing bowel. Superimposed opacity which may be pneumonia. It is not clear how much of the density overlying the right chest is related to the hernia and how much related to pneumonia. Assessment & Plan - Diagnosis (1) Chest pain Qualifiers: Chest pain type: unspecified Qualified Code(s): R07.9 - Chest pain, unspecified Is this a current diagnosis for this admission?: Yes Plan: Noncardiac per cardiology no need for further evaluations patient is currently denied any chest pain (2) Diaphragmatic hernia Qualifiers: Obstruction and gangrene presence: without obstruction or gangrene Qualified Code(s): K44.9 - Diaphragmatic hernia without obstruction or gangrene Is this a current diagnosis for this admission?: Yes Plan: Continues to PPI (3) Shortness of breath Is this a current diagnosis for this admission?: Yes Plan: Currently all resolved (4) Asthma Qualifiers: Asthma severity: mild Is this a current diagnosis for this admission?: Yes Plan: Continues to current medication (5) Hyperlipidemia Qualifiers: Hyperlipidemia type: other hyperlipidemia Is this a current diagnosis for this admission?: Yes (6) Hypertension Qualifiers: Hypertension type: essential hypertension Qualified Code(s): I10 - Essential (primary) hypertension Is this a current diagnosis for this admission?: Yes (7) Scoliosis (and kyphoscoliosis), idiopathic Is this a current diagnosis for this admission?: Yes (8) Urinary frequency Is this a current diagnosis for this admission?: Yes Plan: Start the patient on the Macrobid - Time Time Spent with patient: 15-24 minutes Medications reviewed and adjusted accordingly: Yes Anticipated discharge: Home Within: Other - Plan Summary Plan Summary: Will give some normal saline for a 6 hours repeat the sodium if is going above 130 patients can discharge home
[2019-04-07] MEDS: MONTELUKAST SODIUM 10 MG TABLET PO SCH (17:16)
[2019-04-07] MEDS: NORMAL SALINE 1000 ML 1,000 ML IV PRN (17:17)
[2019-04-07] MEDS: ATORVASTATIN CALCIUM 20 MG TABLET PO SCH (21:30)
[2019-04-08 00:12] LABS: URINE SODIUM 79 mmol/L (30-90)
[2019-04-08 00:26] LABS: OSMOLALITY,URINE 248 mOsm/kg (300-900)
[2019-04-08 04:28] LABS: ABSOLUTE LYMPHOCYTES (AUTO) 1.9 10^3/uL (0.5-4.7); ABSOLUTE MONOCYTES (AUTO) 0.6 10^3/uL (0.1-1.4); ABSOLUTE NEUT (AUTO) 4.5 10^3/uL (1.7-8.2); BASOPHILS % (AUTO) 0.4 % (0-2); EOSINOPHILS % (AUTO) 0.5 % (0-6); HEMATOCRIT 37.4 % (36.0-47.0); HEMOGLOBIN 12.9 g/dL (12.0-15.5); LYMPHOCYTES % (AUTO) 26.8 % (13-45); MEAN CORPUSCULAR HEMOGLOBIN 27.7 pg (27.0-33.4); MEAN CORPUSCULAR HGB CONC 34.6 g/dL (32.0-36.0); MEAN CORPUSCULAR VOLUME 80 fl (80-97); MONOCYTES % (AUTO) 8.4 % (3-13); PLATELET COUNT 157 10^3/uL (150-450); RED BLOOD COUNT 4.68 10^6/uL (3.72-5.28); RED CELL DISTRIBUTION WIDTH 14.5 % (11.5-14.0); SEGMENTED NEUTROPHILS % (AUTO) 63.9 % (42-78); TOTAL CELLS COUNTED % (AUTO) 100 %; WHITE BLOOD COUNT 7.1 10^3/uL (4.0-10.5)
[2019-04-08 04:47] LABS: ANION GAP 8 (5-19); BLOOD UREA NITROGEN 12 mg/dL (7-20); CALCIUM 8.7 mg/dL (8.4-10.2); CARBON DIOXIDE 24 mmol/L (22-30); CHLORIDE 92 mmol/L (98-107); GLUCOSE 108 mg/dL (75-110)
[2019-04-08] MEDS: PANTOPRAZOLE SODIUM 40 MG TABLET.DR PO SCH (06:08)
[2019-04-08] MEDS: NORMAL SALINE 1000 ML 1,000 ML IV PRN (06:08)
[2019-04-08] MEDS: ENOXAPARIN SODIUM INJ 40 MG/0.4 ML DISP.SYRIN SUBCUT SCH (09:21)
[2019-04-08] MEDS: CALCIUM CARBONATE 500 MG TAB.CHEW PO SCH (09:22)
[2019-04-08] MEDS: NITROGLYCERIN 5 MG (0.2 MG/HR) PATCH.TD24 TD SCH (09:22)
[2019-04-08] MEDS: THIAMINE HCL 100 MG TABLET PO SCH (09:24)
[2019-04-08] MEDS: METOPROLOL SUCCINATE 25 MG TAB.SR.24H PO SCH ×2 (09:24→21:38)
[2019-04-08] MEDS: LOSARTAN POTASSIUM 50 MG TABLET PO SCH (09:25)
[2019-04-08] MEDS: FAMOTIDINE 20 MG TABLET PO SCH ×2 (09:25→22:18)
[2019-04-08] MEDS: GUAIFENESIN 600 MG TABLET.SA PO SCH ×2 (09:25→17:32)
[2019-04-08] MEDS: NITROFURANTOIN MONOHYD/M-CRYST 100 MG CAPSULE PO SCH (09:26)
[2019-04-08] MEDS: OLOPATADINE HCL 0.1% OPH SOLN 5 ML OU SCH ×2 (09:27→17:36)
[2019-04-08] MEDS: NYSTATIN OINTMENT 15 GM TUBE TOP SCH ×2 (09:27→17:32)
--- NOTE | 2019-04-08 09:27 | PDOC PROGRESS REPORT ---
Subjective Progress Note for:: 04/08/19 Subjective:: Patient is currently doing well Patient is denied any chest pain to than any shortness of the breath Patient denied any weakness Patient sodium is still low after giving the IV fluid but no fluid restrictions while the patient's serum osmolality and urine osmolality both low Reason For Visit: CHEST PAIN,LARGE HAITAL HERNIA Physical Exam Vital Signs: Temp Pulse Resp BP Pulse Ox 97.9 F 64 20 154/67 H 94 04/08/19 03:41 04/08/19 07:00 04/08/19 03:41 04/08/19 03:41 04/08/19 03:41 Intake & Output 04/07/19 04/08/19 04/09/19 06:59 06:59 06:59 Intake Total 1080 1665 Output Total 2050 3100 Balance -970 -1435 Weight 62 kg 61.1 kg General appearance: PRESENT: no acute distress, well-developed, well-nourished Head exam: PRESENT: atraumatic, normocephalic Eye exam: PRESENT: conjunctiva pink, EOMI, PERRLA. ABSENT: scleral icterus Ear exam: PRESENT: normal external ear exam Mouth exam: PRESENT: moist, tongue midline Neck exam: PRESENT: full ROM. ABSENT: carotid bruit, JVD, lymphadenopathy, thyromegaly Respiratory exam: PRESENT: clear to auscultation candelario Cardiovascular exam: PRESENT: RRR. ABSENT: diastolic murmur, rubs, systolic murmur Vascular exam: PRESENT: normal capillary refill GI/Abdominal exam: PRESENT: normal bowel sounds, soft. ABSENT: distended, guarding, mass, organolmegaly, rebound, tenderness Rectal exam: PRESENT: deferred Musculoskeletal exam: PRESENT: ambulatory Neurological exam: PRESENT: alert, awake, oriented to person, oriented to place, oriented to time, oriented to situation, CN II-XII grossly intact. ABSENT: motor sensory deficit Psychiatric exam: PRESENT: appropriate affect, normal mood. ABSENT: homicidal ideation, suicidal ideation Skin exam: PRESENT: dry, intact, warm. ABSENT: cyanosis, rash Results Laboratory Results: 04/08/19 03:44 04/08/19 03:44 04/07/19 04/07/19 04/07/19 15:25 15:25 22:35 WBC RBC Hgb Hct MCV MCH MCHC RDW Plt Count Seg Neutrophils % Lymphocytes % Monocytes % Eosinophils % Basophils % Absolute Neutrophils Absolute Lymphocytes Absolute Monocytes Absolute Eosinophils Absolute Basophils Sodium 124.0 L Potassium Chloride Carbon Dioxide Anion Gap BUN Creatinine Est GFR ( Amer) Est GFR (Non-Af Amer) Glucose Serum Osmolality 255 L Calcium Urine Osmolality 248 L 04/08/19 04/08/19 03:44 03:44 WBC 7.1 RBC 4.68 Hgb 12.9 Hct 37.4 MCV 80 MCH 27.7 MCHC 34.6 RDW 14.5 H Plt Count 157 Seg Neutrophils % 63.9 Lymphocytes % 26.8 Monocytes % 8.4 Eosinophils % 0.5 Basophils % 0.4 Absolute Neutrophils 4.5 Absolute Lymphocytes 1.9 Absolute Monocytes 0.6 Absolute Eosinophils 0.0 Absolute Basophils 0.0 Sodium 124.1 L Potassium 4.0 Chloride 92 L Carbon Dioxide 24 Anion Gap 8 BUN 12 Creatinine 0.54 Est GFR ( Amer) > 60 Est GFR (Non-Af Amer) > 60 Glucose 108 Serum Osmolality Calcium 8.7 Urine Osmolality 04/04/19 12:47 Blood Blood Culture - Final Bacillus Sp. Not Anthracis 04/04/19 04/04/19 04/04/19 11:32 11:32 16:52 Creatine Kinase 70 58 CK-MB (CK-2) 2.03 Troponin I < 0.012 NT-Pro-B Natriuret Pep 04/04/19 04/05/19 04/05/19 16:52 00:46 00:46 Creatine Kinase 57 CK-MB (CK-2) 1.74 1.49 Troponin I < 0.012 < 0.012 NT-Pro-B Natriuret Pep 1690 H 04/05/19 04/05/19 09:06 09:06 Creatine Kinase 63 CK-MB (CK-2) 1.59 Troponin I < 0.012 NT-Pro-B Natriuret Pep Impressions: Chest CT 04/04/19 00:00 IMPRESSION: There are no acute infiltrates in the lungs. Large anterior right mediastinal hernia containing nonobstructed bowel accounts for the density in the right chest. Chest X-Ray 04/04/19 11:27 IMPRESSION: Large right-sided anterior mediastinal hernia containing bowel. Superimposed opacity which may be pneumonia. It is not clear how much of the density overlying the right chest is related to the hernia and how much related to pneumonia. Assessment & Plan - Diagnosis (1) Chest pain Qualifiers: Chest pain type: unspecified Qualified Code(s): R07.9 - Chest pain, unspecified Is this a current diagnosis for this admission?: Yes Plan: Noncardiac per cardiology no need for further evaluations patient is currently denied any chest pain (2) Diaphragmatic hernia Qualifiers: Obstruction and gangrene presence: without obstruction or gangrene Qualified Code(s): K44.9 - Diaphragmatic hernia without obstruction or gangrene Is this a current diagnosis for this admission?: Yes Plan: Continues to PPI (3) Shortness of breath Is this a current diagnosis for this admission?: Yes Plan: Currently all resolved (4) Asthma Qualifiers: Asthma severity: mild Is this a current diagnosis for this admission?: Yes Plan: Continues to current medication (5) Hyperlipidemia Qualifiers: Hyperlipidemia type: other hyperlipidemia Is this a current diagnosis for this admission?: Yes (6) Hypertension Qualifiers: Hypertension type: essential hypertension Qualified Code(s): I10 - Essential (primary) hypertension Is this a current diagnosis for this admission?: Yes (7) Scoliosis (and kyphoscoliosis), idiopathic Is this a current diagnosis for this admission?: Yes (8) Urinary frequency Is this a current diagnosis for this admission?: Yes (9) Hyponatremia Is this a current diagnosis for this admission?: Yes Plan: Patient's serum osmolality low and urine osmolality low patients may be drinking a little bit more excessive fluid will restrict the fluid possible underlying SIADH and continues to monitor for the next 24 hours - Time Time Spent with patient: 15-24 minutes Medications reviewed and adjusted accordingly: Yes Anticipated discharge: Home Within: within 24 hours - Plan Summary Plan Summary: Continues to current medications
[2019-04-08] MEDS: FLUTICASONE/VILANTEROL 200-25 MCG/DOSE IH SCH (09:28)
[2019-04-08] MEDS: ACETAMINOPHEN 325 MG TABLET PO PRN (09:30)
[2019-04-08] MEDS ORDERED: POLYETHYLENE GLYCOL 3350 POWDER 17 GM/1 PACKET PO PRN (11:01)
--- NOTE | 2019-04-08 12:13 | PDOC CONSULTATION ---
Consultation Consult Date: 04/08/19 Provider Consulted: [facility] Consult reason:: Acute Hyponatremia History of Present Illness Admission Date/PCP: 04/04/19 13:17 RUBI AGUIAR MD History of Present Illness: BHUPINDER Walsh LADUE is a 78 year old female with a past medical history of hypertension hyperlipidemia was admitted with history of chest pain and shortness of breath. She was discovered to have a diaphragmatic hernia as a possible cause of the shortness of breath in association with her kyphosis. Her lab/chemistries were normal but sodium dropped From 140 on the and the 28 and 124 today. 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 She has some itching around the vaginal area and also also mentioned that she had a tinea cruris and is using nystatin. No history of any fever or chills. She thinks she may have mild dysuria but she is not so sure. No complaints of any fever or chills. She is currently also been put on nitrofurantoin for apparent and Enterococcus faecalis growing 30- 40,000 colonies only. Past Medical History Cardiac Medical History: Reports: Hyperlipidemia, Hypertension-primary, Myocardial Infarction - nonstemi 2017 Denies: Coronary Artery Disease, Pulmonary Embolism Pulmonary Medical History: Reports: Asthma, Bronchitis, Pneumonia Comment Only: Chronic Obstructive Pulmonary Disease (COPD) - States she has not been diagnosed with COPD EENT Medical History: Reports: None Neurological Medical History: Reports: None Denies: Migraine, Seizures Endocrine Medical History: Reports: None Complications of Diabetes: Reports: None Renal/ Medical History: Reports: None Malignancy Medical History: Reports: None GI Medical History: Reports: Gastroesophageal Reflux Disease, Hiatal Hernia Denies: Hepatitis Musculoskeltal Medical History: Reports: Arthritis Skin Medical History: Reports: None Psychiatric Medical History: Reports: Depression - on occassion Traumatic Medical History: Reports: None Infectious Medical History: Reports: None Past Surgical History Past Surgical History: Reports: Appendectomy, Orthopedic Surgery, Tonsillectomy Denies: Hysterectomy, Mastectomy, Pacemaker Social History Lives with: Alone Smoking Status: Never Smoker Frequency of Alcohol Use: Occasional Hx Recreational Drug Use: No Drugs: None Hx Prescription Drug Abuse: No Family History Parental Family History Reviewed: Yes - Negative for CKD Children Family History Reviewed: No Sibling(s) Family History Reviewed.: No Medication/Allergy Home Medications: Albuterol Sulfate [Proair HFA] 2 puff IH Q4HP PRN 06/06/18 Calcium Carbonate [Calcium] 600 mg PO DAILY 06/06/18 Losartan Potassium [Cozaar 50 mg Tablet] 100 mg PO DAILY 06/06/18 Montelukast Sodium [Singulair 10 mg Tablet] 10 mg PO QPM 06/06/18 Nystatin [Mycostatin Ointment 15 gm] 1 applic TOP BID 06/06/18 Olopatadine HCl [Patanol 0.1% Oph Soln 5 ml] 1 drop OU BID 06/06/18 Atorvastatin Calcium [Lipitor 20 mg Tablet] 20 mg PO QHS #30 tablet 06/09/18 Metoprolol Succinate [Toprol Xl 25 mg Tab.sr] 25 mg PO Q12 #60 tab.sr.24h 06/09/18 Mirabegron [Myrbetriq] 25 mg PO DAILY #30 tab.er.24h 06/09/18 Nitroglycerin [Nitro-Dur 5 mg (0.2 mg/Hr) Transdermal Patch] 1 each TD DAILY #30 patch.td24 06/09/18 Thiamine HCl [Thiamine 100 mg Tablet] 100 mg PO DAILY #60 tablet 06/09/18 Omeprazole 40 mg PO DAILY #14 capsule. 06/14/18 Guaifenesin [Mucinex] 600 mg PO BID #6 tablet.sa 10/13/18 Citalopram Hydrobromide [Celexa 40 mg Tablet] 1 tab PO DAILY 04/04/19 Fluticasone/Salmeterol [Advair 500-50 Diskus 14 Dose/Diskus] 1 inh IH Q12 04/04/19 Meloxicam [Mobic] 7.5 mg PO DAILY 04/04/19 Ranitidine HCl [Zantac] 300 mg PO DAILY 04/04/19 Allergies/Adverse Reactions: latex [Latex] Allergy (Intermediate, Verified 11/24/18 12:04) ITCHING levofloxacin [From Levaquin] Allergy (Unknown, Verified 11/24/18 12:04) Penicillins Adverse Reaction (Mild, Verified 11/24/18 12:04) Yeast infections ibuprofen [From Motrin] Adverse Reaction (Verified 11/24/18 12:04) Review of Systems Constitutional: ABSENT: fatigue, fever(s), headache(s), weakness Nose, Mouth, and Throat: ABSENT: mouth pain, sore throat Cardiovascular: PRESENT: chest pain, dyspnea on exertion. ABSENT: edema, orthropnea, palpitations Respiratory: ABSENT: cough, hemoptysis Gastrointestinal: ABSENT: abdominal pain, coffee ground emesis, dysphagia, heartburn, hematemesis, hematochezia, melena, nausea, vomiting Genitourinary: ABSENT: difficulty urinating, hematuria Musculoskeletal: ABSENT: deformity, joint swelling Integumentary: ABSENT: erythema, lesions, pruritus, rash Neurological: ABSENT: abnormal movements, abnormal speech, confusion, convulsions, focal weakness Psychiatric: ABSENT: anxiety Hematologic/Lymphatic: ABSENT: easy bruising, lymphadenopathy Physical Exam Vital Signs: Temp Pulse Resp BP Pulse Ox 98.0 F 51 L 16 149/73 H 95 04/08/19 10:48 04/08/19 10:48 04/08/19 10:48 04/08/19 10:48 04/08/19 10:48 Intake & Output 04/07/19 04/08/19 04/09/19 06:59 06:59 06:59 Intake Total 1080 1665 120 Output Total 2050 3100 500 Balance -970 -1435 -380 Weight 62 kg 61.1 kg General appearance: PRESENT: no acute distress Eye exam: PRESENT: EOMI, PERRLA Ear exam: PRESENT: normal external ear exam Mouth exam: PRESENT: moist, neck supple Neck exam: ABSENT: lymphadenopathy, meningismus, tenderness, thyromegaly, tracheal deviation Respiratory exam: PRESENT: clear to auscultation candelario. ABSENT: crackles Cardiovascular exam: PRESENT: +S1, +S2 GI/Abdominal exam: PRESENT: normal bowel sounds, soft. ABSENT: organomegaly, tenderness Extremities exam: ABSENT: pedal edema Neurological exam: PRESENT: alert, awake, oriented to person, oriented to place Psychiatric exam: PRESENT: appropriate affect Skin exam: PRESENT: erythema - Mild erythema in the groin site history of tenia but looks like it is healing very well.. ABSENT: mottled, skin tears Results Laboratory Results: 04/08/19 03:44 04/08/19 03:44 04/07/19 04/07/19 04/07/19 15:25 15:25 22:35 WBC RBC Hgb Hct MCV MCH MCHC RDW Plt Count Seg Neutrophils % Lymphocytes % Monocytes % Eosinophils % Basophils % Absolute Neutrophils Absolute Lymphocytes Absolute Monocytes Absolute Eosinophils Absolute Basophils Sodium 124.0 L Potassium Chloride Carbon Dioxide Anion Gap BUN Creatinine Est GFR ( Amer) Est GFR (Non-Af Amer) Glucose Serum Osmolality 255 L Calcium Urine Osmolality 248 L 04/08/19 04/08/19 03:44 03:44 WBC 7.1 RBC 4.68 Hgb 12.9 Hct 37.4 MCV 80 MCH 27.7 MCHC 34.6 RDW 14.5 H Plt Count 157 Seg Neutrophils % 63.9 Lymphocytes % 26.8 Monocytes % 8.4 Eosinophils % 0.5 Basophils % 0.4 Absolute Neutrophils 4.5 Absolute Lymphocytes 1.9 Absolute Monocytes 0.6 Absolute Eosinophils 0.0 Absolute Basophils 0.0 Sodium 124.1 L Potassium 4.0 Chloride 92 L Carbon Dioxide 24 Anion Gap 8 BUN 12 Creatinine 0.54 Est GFR ( Amer) > 60 Est GFR (Non-Af Amer) > 60 Glucose 108 Serum Osmolality Calcium 8.7 Urine Osmolality 04/04/19 12:47 Blood Blood Culture - Final Bacillus Sp. Not Anthracis 04/04/19 04/04/19 04/04/19 11:32 11:32 16:52 Creatine Kinase 70 58 CK-MB (CK-2) 2.03 Troponin I < 0.012 NT-Pro-B Natriuret Pep 04/04/19 04/05/19 04/05/19 16:52 00:46 00:46 Creatine Kinase 57 CK-MB (CK-2) 1.74 1.49 Troponin I < 0.012 < 0.012 NT-Pro-B Natriuret Pep 1690 H 04/05/19 04/05/19 09:06 09:06 Creatine Kinase 63 CK-MB (CK-2) 1.59 Troponin I < 0.012 NT-Pro-B Natriuret Pep Impressions: Chest CT 04/04/19 00:00 IMPRESSION: There are no acute infiltrates in the lungs. Large anterior right mediastinal hernia containing nonobstructed bowel accounts for the density in the right chest. Chest X-Ray 04/04/19 11:27 IMPRESSION: Large right-sided anterior mediastinal hernia containing bowel. Superimposed opacity which may be pneumonia. It is not clear how much of the density overlying the right chest is related to the hernia and how much related to pneumonia. Assessment & Plan - Diagnosis (1) Hyponatremia Is this a current diagnosis for this admission?: Yes Plan: Likely drug-induced. I will discontinue the nitrofurantoin as well as the PPI. Put on fluid restrictions I believe she should be fine after that. She is not very sure that she has got dysuria at the moment and I am not convinced that she is got a UTI. The urine cultures only growing 30-40,000 colonies of enterococcus and therefore we will repeat the UA. This could be an element of the tenia that she had also. If she has a confirmed UTI with enterococcus I would be more inclined to put on amoxicillin along with a course of PO fluconazole because she mentions she has vaginal fungal infections anytime she takes penicillin derivatives. (2) Chest pain Qualifiers: Chest pain type: unspecified Qualified Code(s): R07.9 - Chest pain, unspecified Is this a current diagnosis for this admission?: Yes Plan: Currently resolved. As per Dr. Aguiar. (3) Diaphragmatic hernia Qualifiers: Obstruction and gangrene presence: without obstruction or gangrene Qualified Code(s): K44.9 - Diaphragmatic hernia without obstruction or gangrene Is this a current diagnosis for this admission?: Yes Plan: As per Dr. Aguiar.I would be more inclined to continue with H2 blockers then use PPI especially in the current setting of acute hyponatremia.
[2019-04-08] MEDS: DOCUSATE SODIUM 100 MG CAPSULE PO SCH ×2 (14:21→17:32)
[2019-04-08] MEDS: MONTELUKAST SODIUM 10 MG TABLET PO SCH (17:32)
[2019-04-08] MEDS: FLUCONAZOLE 100 MG TABLET PO SCH (18:45)
[2019-04-08] MEDS: MICONAZOLE NITRATE 2% VAGINAL CREAM 45 GM TUBE PV SCH (18:51)
[2019-04-08] MEDS: ATORVASTATIN CALCIUM 20 MG TABLET PO SCH (22:18)
[2019-04-09] MEDS: ACETAMINOPHEN 325 MG TABLET PO PRN ×2 (01:56→23:51)
[2019-04-09 05:14] LABS: ANION GAP 8 (5-19); BLOOD UREA NITROGEN 13 mg/dL (7-20); CALCIUM 9.1 mg/dL (8.4-10.2); CARBON DIOXIDE 25 mmol/L (22-30); CHLORIDE 90 mmol/L (98-107); GLUCOSE 113 mg/dL (75-110); POTASSIUM 3.9 mmol/L (3.6-5.0)
--- NOTE | 2019-04-09 09:03 | PDOC PROGRESS REPORT ---
Subjective Progress Note for:: 04/09/19 Subjective:: Patient is currently doing well Patient is denied any chest pain to than any shortness of the breath Sodium is still same 123 range but completely asymptomatic As per discussed with the Dr. Mirza most likely from the medications Macrobid and omeprazole currently stop Today's Dr. Mirza suggest may be we can give her 1 tablet toletpan Patient have a some vaginal itching but currently all better Reason For Visit: CHEST PAIN,LARGE HAITAL HERNIA Physical Exam Vital Signs: Temp Pulse Resp BP Pulse Ox 97.5 F 64 20 143/70 H 93 04/09/19 07:47 04/09/19 07:47 04/09/19 07:47 04/09/19 07:47 04/09/19 07:47 Intake & Output 04/08/19 04/09/19 04/10/19 06:59 06:59 06:59 Intake Total 1665 503 Output Total 3100 500 Balance -1435 3 Weight 61.1 kg 60 kg General appearance: PRESENT: no acute distress, well-developed, well-nourished Head exam: PRESENT: atraumatic, normocephalic Eye exam: PRESENT: conjunctiva pink, EOMI, PERRLA. ABSENT: scleral icterus Ear exam: PRESENT: normal external ear exam Mouth exam: PRESENT: moist, tongue midline Neck exam: PRESENT: full ROM. ABSENT: carotid bruit, JVD, lymphadenopathy, thyromegaly Respiratory exam: PRESENT: clear to auscultation candelario Cardiovascular exam: PRESENT: RRR. ABSENT: diastolic murmur, rubs, systolic murmur Pulses: PRESENT: normal dorsalis pedis pul, +2 pedal pulses bilateral Vascular exam: PRESENT: normal capillary refill GI/Abdominal exam: PRESENT: normal bowel sounds, soft. ABSENT: distended, g uarding, mass, organolmegaly, rebound, tenderness Rectal exam: PRESENT: deferred Musculoskeletal exam: PRESENT: ambulatory Neurological exam: PRESENT: alert, awake, oriented to person, oriented to place, oriented to time, oriented to situation, CN II-XII grossly intact. ABSENT: motor sensory deficit Psychiatric exam: PRESENT: appropriate affect, normal mood. ABSENT: homicidal ideation, suicidal ideation Skin exam: PRESENT: dry, intact, warm. ABSENT: cyanosis, rash Results Laboratory Results: 04/08/19 03:44 04/09/19 03:54 04/09/19 04/09/19 03:54 03:54 Sodium 123.3 L Potassium 3.9 Chloride 90 L Carbon Dioxide 25 Anion Gap 8 BUN 13 Creatinine 0.54 Est GFR ( Amer) > 60 Est GFR (Non-Af Amer) > 60 Glucose 113 H Calcium 9.1 TSH 3.47 04/04/19 04/04/19 04/04/19 11:32 11:32 16:52 Creatine Kinase 70 58 CK-MB (CK-2) 2.03 Troponin I < 0.012 NT-Pro-B Natriuret Pep 04/04/19 04/05/19 04/05/19 16:52 00:46 00:46 Creatine Kinase 57 CK-MB (CK-2) 1.74 1.49 Troponin I < 0.012 < 0.012 NT-Pro-B Natriuret Pep 1690 H 04/05/19 04/05/19 09:06 09:06 Creatine Kinase 63 CK-MB (CK-2) 1.59 Troponin I < 0.012 NT-Pro-B Natriuret Pep Impressions: Chest CT 04/04/19 00:00 IMPRESSION: There are no acute infiltrates in the lungs. Large anterior right mediastinal hernia containing nonobstructed bowel accounts for the density in the right chest. Chest X-Ray 04/04/19 11:27 IMPRESSION: Large right-sided anterior mediastinal hernia containing bowel. Superimposed opacity which may be pneumonia. It is not clear how much of the density overlying the right chest is related to the hernia and how much related to pneumonia. Assessment & Plan - Diagnosis (1) Chest pain Qualifiers: Chest pain type: unspecified Qualified Code(s): R07.9 - Chest pain, unspecified Is this a current diagnosis for this admission?: Yes Plan: Noncardiac per cardiology no need for further evaluations patient is currently denied any chest pain (2) Diaphragmatic hernia Qualifiers: Obstruction and gangrene presence: without obstruction or gangrene Qualified Code(s): K44.9 - Diaphragmatic hernia without obstruction or gangrene Is this a current diagnosis for this admission?: Yes Plan: Continues to PPI (3) Shortness of breath Is this a current diagnosis for this admission?: Yes Plan: Currently all resolved (4) Asthma Qualifiers: Asthma severity: mild Is this a current diagnosis for this admission?: Yes Plan: Continues to current medication (5) Hyperlipidemia Qualifiers: Hyperlipidemia type: other hyperlipidemia Is this a current diagnosis for this admission?: Yes (6) Hypertension Qualifiers: Hypertension type: essential hypertension Qualified Code(s): I10 - Essential (primary) hypertension Is this a current diagnosis for this admission?: Yes (7) Scoliosis (and kyphoscoliosis), idiopathic Is this a current diagnosis for this admission?: Yes (8) Urinary frequency Is this a current diagnosis for this admission?: Yes (9) Hyponatremia Is this a current diagnosis for this admission?: Yes - Time Time Spent with patient: 15-24 minutes Medications reviewed and adjusted accordingly: Yes Anticipated discharge: Home - Plan Summary Plan Summary: As per elbow see the MD orders
[2019-04-09] MEDS ORDERED: TOLVAPTAN 15 MG TABLET PO ONE (09:30)
[2019-04-09] MEDS: OLOPATADINE HCL 0.1% OPH SOLN 5 ML OU SCH ×2 (10:12→19:38)
[2019-04-09] MEDS: ENOXAPARIN SODIUM INJ 40 MG/0.4 ML DISP.SYRIN SUBCUT SCH (10:12)
[2019-04-09] MEDS: DOCUSATE SODIUM 100 MG CAPSULE PO SCH ×2 (10:13→17:40)
[2019-04-09] MEDS: NITROGLYCERIN 5 MG (0.2 MG/HR) PATCH.TD24 TD SCH (10:14)
[2019-04-09] MEDS: FAMOTIDINE 20 MG TABLET PO SCH ×2 (10:14→22:05)
[2019-04-09] MEDS: FLUTICASONE/VILANTEROL 200-25 MCG/DOSE IH SCH (10:14)
[2019-04-09] MEDS: CALCIUM CARBONATE 500 MG TAB.CHEW PO SCH (10:15)
[2019-04-09] MEDS: LOSARTAN POTASSIUM 50 MG TABLET PO SCH (10:15)
[2019-04-09] MEDS: GUAIFENESIN 600 MG TABLET.SA PO SCH ×2 (10:15→17:40)
[2019-04-09] MEDS: METOPROLOL SUCCINATE 25 MG TAB.SR.24H PO SCH ×2 (10:15→22:05)
[2019-04-09] MEDS: THIAMINE HCL 100 MG TABLET PO SCH (10:16)
[2019-04-09] MEDS: NYSTATIN OINTMENT 15 GM TUBE TOP SCH ×2 (10:17→17:42)
[2019-04-09] MEDS: MICONAZOLE NITRATE 2% VAGINAL CREAM 45 GM TUBE PV SCH ×2 (10:19→17:44)
[2019-04-09] MEDS ORDERED: MAGNESIUM HYDROXIDE SUSP 30 ML UDCUP PO PRN (15:54)
[2019-04-09] MEDS: MONTELUKAST SODIUM 10 MG TABLET PO SCH (17:40)
[2019-04-09] MEDS: FLUCONAZOLE 100 MG TABLET PO SCH (17:41)
[2019-04-09] MEDS: ATORVASTATIN CALCIUM 20 MG TABLET PO SCH (22:05)
[2019-04-10 06:06] LABS: ANION GAP 7 (5-19); BLOOD UREA NITROGEN 13 mg/dL (7-20); CALCIUM 9.4 mg/dL (8.4-10.2); CARBON DIOXIDE 26 mmol/L (22-30); CHLORIDE 99 mmol/L (98-107); GLUCOSE 96 mg/dL (75-110); POTASSIUM 4.4 mmol/L (3.6-5.0)
[2019-04-10] MEDS: ACETAMINOPHEN 325 MG TABLET PO PRN (06:40)
--- NOTE | 2019-04-10 09:52 | PDOC DISCHARGE SUMMARY ---
General - Admit/Disc Date/PCP Admission Date/Primary Care Provider: 04/04/19 13:17 RUBI AGUIAR MD Discharge Date: 04/10/19 - Discharge Diagnosis (1) Chest pain Is this a current diagnosis for this admission?: Yes Summary: Currently all resolved noncardiac follow outpatients Dr. Trujillo (2) Diaphragmatic hernia Is this a current diagnosis for this admission?: Yes Summary: Continues to ranitidine (3) Shortness of breath Is this a current diagnosis for this admission?: Yes Summary: Currently all resolved (4) Asthma Is this a current diagnosis for this admission?: Yes Summary: Currently all stable (5) Hyperlipidemia Is this a current diagnosis for this admission?: Yes Summary: Continues to current medication (6) Hypertension Is this a current diagnosis for this admission?: Yes Summary: Currently all stable (7) Scoliosis (and kyphoscoliosis), idiopathic Is this a current diagnosis for this admission?: Yes (8) Urinary frequency Is this a current diagnosis for this admission?: Yes Summary: Currently all resolved (9) Hyponatremia Is this a current diagnosis for this admission?: Yes Summary: Currently all resolving the fluid restrictions as per discussed with Dr. Mirza stop the omeprazole and Macrobid - Additional Information Discharge Diet: Cardiac Discharge Activity: Activity As Tolerated Prescriptions: Miconazole Nitrate [Monistat-7 Vaginal Cream 45 gm Tube] 1 applic PV BID #1 tube Home Medications: Albuterol Sulfate [Proair HFA] 2 puff IH Q4HP PRN 06/06/18 Calcium Carbonate [Calcium] 600 mg PO DAILY 06/06/18 Losartan Potassium [Cozaar 50 mg Tablet] 100 mg PO DAILY 06/06/18 Montelukast Sodium [Singulair 10 mg Tablet] 10 mg PO QPM 06/06/18 Nystatin [Mycostatin Ointment 15 gm] 1 applic TOP BID 06/06/18 Olopatadine HCl [Patanol 0.1% Oph Soln 5 ml] 1 drop OU BID 06/06/18 Atorvastatin Calcium [Lipitor 20 mg Tablet] 20 mg PO QHS #30 tablet 06/09/18 Metoprolol Succinate [Toprol Xl 25 mg Tab.sr] 25 mg PO Q12 #60 tab.sr.24h 06/09/18 Mirabegron [Myrbetriq] 25 mg PO DAILY #30 tab.er.24h 06/09/18 Nitroglycerin [Nitro-Dur 5 mg (0.2 mg/Hr) Transdermal Patch] 1 each TD DAILY #30 patch.td24 06/09/18 Thiamine HCl [Thiamine 100 mg Tablet] 100 mg PO DAILY #60 tablet 06/09/18 Guaifenesin [Mucinex] 600 mg PO BID #6 tablet.sa 10/13/18 Fluticasone/Salmeterol [Advair 500-50 Diskus 14 Dose/Diskus] 1 inh IH Q12 04/04/19 Ranitidine HCl [Zantac] 300 mg PO DAILY 04/04/19 Miconazole Nitrate [Monistat-7 Vaginal Cream 45 gm Tube] 1 applic PV BID #1 tube 04/10/19 History of Present Illness History of Present Illness: BHUPINDER NARVAEZ is a 78 year old female Patient was admitting in the hospital for the chest pain and short of breath patient had a CT angiogram was negative for any PE with some diaphragmatic hernia and initial work-up is negative Hospital Course Hospital Course: This 78-year-old female admitting in the hospital because of the chest pain is short of breath and patient CT scan was all stable patient was seen by Dr. Trujillo cost reduction engineer clear from cardiac standpoint patients have a significant diaphragmatic hernia which is currently stable Patient also having some urinary frequency questionable UTIYeast infections treated with the appropriate medications She is also developed hyponatremia and Hermes was consulted with completely asymptomatic most likely coming from the medications and suggest to stop the omeprazole Macrobid and a fluid restrictions and patient's sodium level was 131 and discharge Patient is otherwise completely asymptomatic feeling better follow outpatients Dr. Trujillo also patient's ambulatory in the hallway without any problems and p.o. intake is good Physical Exam Vital Signs: Temp Pulse Resp BP Pulse Ox 97.7 F 49 L 20 141/57 H 97 04/10/19 03:55 04/10/19 07:00 04/10/19 03:55 04/10/19 03:55 04/10/19 03:55 Intake & Output 04/09/19 04/10/19 04/11/19 06:59 06:59 06:59 Intake Total 503 537 Output Total 500 Balance 3 537 Weight 60 kg 59.1 kg General appearance: PRESENT: no acute distress, well-developed, well-nourished Head exam: PRESENT: atraumatic, normocephalic Eye exam: PRESENT: conjunctiva pink, EOMI, PERRLA. ABSENT: scleral icterus Ear exam: PRESENT: normal external ear exam Mouth exam: PRESENT: moist, tongue midline Neck exam: PRESENT: full ROM. ABSENT: carotid bruit, JVD, lymphadenopathy, t hyromegaly Cardiovascular exam: PRESENT: RRR. ABSENT: diastolic murmur, rubs, systolic murmur Pulses: PRESENT: normal dorsalis pedis pul, +2 pedal pulses bilateral Vascular exam: PRESENT: normal capillary refill GI/Abdominal exam: PRESENT: normal bowel sounds, soft. ABSENT: distended, guarding, mass, organolmegaly, rebound, tenderness Rectal exam: PRESENT: deferred Extremities exam: ABSENT: pedal edema Musculoskeletal exam: PRESENT: ambulatory Neurological exam: PRESENT: alert, awake, oriented to person, oriented to place, oriented to time, oriented to situation, CN II-XII grossly intact. ABSENT: motor sensory deficit Psychiatric exam: PRESENT: appropriate affect, normal mood. ABSENT: homicidal ideation, suicidal ideation Skin exam: PRESENT: dry, intact, warm. ABSENT: cyanosis, rash Results Laboratory Results: 04/08/19 03:44 04/10/19 04:58 04/10/19 04:58 Sodium 131.6 L Potassium 4.4 Chloride 99 Carbon Dioxide 26 Anion Gap 7 BUN 13 Creatinine 0.63 Est GFR ( Amer) > 60 Est GFR (Non-Af Amer) > 60 Glucose 96 Calcium 9.4 04/04/19 13:20 Blood Blood Culture - Final NO GROWTH IN 5 DAYS 04/04/19 04/04/19 04/04/19 11:32 11:32 16:52 Creatine Kinase 70 58 CK-MB (CK-2) 2.03 Troponin I < 0.012 NT-Pro-B Natriuret Pep 04/04/19 04/05/19 04/05/19 16:52 00:46 00:46 Creatine Kinase 57 CK-MB (CK-2) 1.74 1.49 Troponin I < 0.012 < 0.012 NT-Pro-B Natriuret Pep 1690 H 04/05/19 04/05/19 09:06 09:06 Creatine Kinase 63 CK-MB (CK-2) 1.59 Troponin I < 0.012 NT-Pro-B Natriuret Pep Impressions: Chest CT 04/04/19 00:00 IMPRESSION: There are no acute infiltrates in the lungs. Large anterior right mediastinal hernia containing nonobstructed bowel accounts for the density in the right chest. Chest X-Ray 04/04/19 11:27 IMPRESSION: Large right-sided anterior mediastinal hernia containing bowel. Superimposed opacity which may be pneumonia. It is not clear how much of the density overlying the right chest is related to the hernia and how much related to pneumonia. Qualifiers - * PATIENT BEING DISCHARGED WITH ANY OF THE FOLLOWING DIAGNOSIS: No VTE patient discharged on overlapping Therapy?: Yes Acute Heart Failure - Is this a Heart Failure Patient?: No Plan Time Spent: Greater than 30 Minutes - Follow outpatients Dr. Senior Follow in office in 1 week we will repeat the Chem-7
[2019-04-10] MEDS: GUAIFENESIN 600 MG TABLET.SA PO SCH (10:30)
[2019-04-10] MEDS: CALCIUM CARBONATE 500 MG TAB.CHEW PO SCH (10:30)
[2019-04-10] MEDS: FAMOTIDINE 20 MG TABLET PO SCH (10:30)
[2019-04-10] MEDS: THIAMINE HCL 100 MG TABLET PO SCH (10:30)
[2019-04-10] MEDS: LOSARTAN POTASSIUM 50 MG TABLET PO SCH (10:30)
[2019-04-10] MEDS: DOCUSATE SODIUM 100 MG CAPSULE PO SCH (10:31)
[2019-04-10] MEDS: METOPROLOL SUCCINATE 25 MG TAB.SR.24H PO SCH (10:31)
[2019-04-10] MEDS: NYSTATIN OINTMENT 15 GM TUBE TOP SCH (10:32)
[2019-04-10] MEDS: MICONAZOLE NITRATE 2% VAGINAL CREAM 45 GM TUBE PV SCH (10:33)
[2019-04-10] MEDS: FLUTICASONE/VILANTEROL 200-25 MCG/DOSE IH SCH (10:34)
[2019-04-10] MEDS: NITROGLYCERIN 5 MG (0.2 MG/HR) PATCH.TD24 TD SCH (10:34)
[2019-04-10] MEDS: ENOXAPARIN SODIUM INJ 40 MG/0.4 ML DISP.SYRIN SUBCUT SCH (10:34)
[2019-04-10] MEDS: OLOPATADINE HCL 0.1% OPH SOLN 5 ML OU SCH (10:37)
[2019-04-10 14:44] VITALS: BP 153/72
== END 2019-04-10 15:32 | disposition home health service (06) ==
LOC: ER 11:26 → EH 13:17 → INTOOBSV 13:17 → 3N 15:26
PROVIDERS: ADMIT Family Medicine; ATTEND Family Medicine
DX: R07.89 Other chest pain (principal); K44.9 Diaphragmatic hernia without obstruction or gangrene; R06.02 Shortness of breath; M41.20 Other idiopathic scoliosis, site unspecified; J45.909 Unspecified asthma, uncomplicated; E78.49 Other hyperlipidemia; I10 Essential (primary) hypertension; R35.0 Frequency of micturition; E87.1 Hypo-osmolality and hyponatremia; B35.6 Tinea cruris; M19.90 Unspecified osteoarthritis, unspecified site; I25.10 Atherosclerotic heart disease of native coronary artery without angina pectoris; R05 Cough; I25.2 Old myocardial infarction; J98.59 Other diseases of mediastinum, not elsewhere classified; K21.9 Gastro-esophageal reflux disease without esophagitis; R06.7 Sneezing; Z79.899 Other long term (current) drug therapy; Z90.49 Acquired absence of other specified parts of digestive tract; Z60.2 Problems related to living alone; Z82.49 Family history of ischemic heart disease and other diseases of the circulatory system; Z87.01 Personal history of pneumonia (recurrent); Z98.890 Other specified postprocedural states
CPT/HCPCS: 93005; 99285; 96365; 96367; 36415 ×7; 87040; 87086; 87205; 82553 ×2; 82803; 82550 ×2; 83930; 84295; 84443; 83935; 84300; 85025 ×5; 87077; 87088; 80048 ×3; 80053 ×4; 81001; 84484 ×2; 87186; 83036; 83880; 71045; 71260; 93010; 36600; G0378 ×7; A9270 ×63; J3490 ×22; J1650 ×5; J7030 ×3; J0456; J0696; 87070; J8499

== ENCOUNTER 2019-04-16 18:49 | Emergency (ER) | payer MEDICARE ==
--- NOTE | 2019-04-16 19:30 | ER Document Report ---
ED Medical Screen (RME) - General Chief Complaint: Foot Pain Stated Complaint: FOOT BRUSING Time Seen by Provider: 04/16/19 19:27 Primary Care Provider: RUBI AGUIAR MD [Primary Care Provider] - Follow up as needed Mode of Arrival: Ambulatory Information source: Patient Notes: 78-year-old female presents to ED for complaint of bruising and swelling to the left foot and leg. She states she has not had any falls or injuries. She states she is on aspirin but no other blood thinners. She states she does not know why her leg and ankle are swelling and that her ankle and foot are bruised. Patient is alert and oriented respirations regular and unlabored. After I finished my assessment and started putting my note in the chart she yelled out to 1 of the nurse that the now her left calf with hurting. I have greeted and performed a rapid initial assessment of this patient. A comprehensive ED assessment and evaluation of the patient, analysis of test results and completion of medical decision making process will be conducted by an additional ED providers. Dictation of this chart was performed using voice recognition software; therefore, there may be some unintended grammatical errors. TRAVEL OUTSIDE OF THE [place] IN LAST 30 DAYS: No - Related Data Allergies/Adverse Reactions: latex [Latex] Allergy (Intermediate, Verified 04/16/19 18:52) ITCHING levofloxacin [From Levaquin] Allergy (Unknown, Verified 04/16/19 18:52) saccharin Allergy (Verified 04/16/19 18:54) Penicillins Adverse Reaction (Mild, Verified 04/16/19 18:52) Yeast infections ibuprofen [From Motrin] Adverse Reaction (Verified 04/16/19 18:52) Past Medical History - Past Medical History Cardiac Medical History: Reports: Hx Heart Attack - nonstemi 2018, Hx Hypercholesterolemia, Hx Hypertension Denies: Hx Congestive Heart Failure, Hx Coronary Artery Disease, Hx Pulmonary Embolism Pulmonary Medical History: Reports: Hx Asthma, Hx Bronchitis, Hx Pneumonia Comment Only: Hx COPD - States she has not been diagnosed with COPD Neurological Medical History: Denies: Hx Cerebrovascular Accident, Hx Migraine, Hx Seizures Renal/ Medical History: Denies: Hx Peritoneal Dialysis GI Medical History: Reports: Hx Gastroesophageal Reflux Disease, Hx Hiatal Hernia. Denies: Hx Hepatitis, Hx Ulcer Musculoskeltal Medical History: Reports Hx Arthritis Psychiatric Medical History: Reports: Hx Depression - on occassion Infectious Medical History: Denies: Hx Hepatitis Past Surgical History: Reports: Hx Abdominal Surgery - ODELL, Hx Appendectomy, Hx Orthopedic Surgery, Hx Tonsillectomy. Denies: Hx Hysterectomy, Hx Mastectomy, Hx Open Heart Surgery, Hx Pacemaker - Immunizations Hx Diphtheria, Pertussis, Tetanus Vaccination: No History of Influenza Vaccine for 06/2017 - 11/2017 Season: Yes Influenza Administration Date for 06/2017 - 11/2017 Season: 06/11/17 Physical Exam - Vital signs Vitals: Temp Pulse Resp BP Pulse Ox 98.2 F 52 L 18 147/62 H 95 04/16/19 18:55 04/16/19 18:55 04/16/19 18:55 04/16/19 18:55 04/16/19 18:55 Course - Vital Signs Vital signs: Temp Pulse Resp BP Pulse Ox 98.2 F 52 L 18 147/62 H 95 04/16/19 18:55 04/16/19 18:55 04/16/19 18:55 04/16/19 18:55 04/16/19 18:55 Doctor's Discharge - Discharge Referrals: RUBI AGUIAR MD [Primary Care Provider] - Follow up as needed
--- NOTE | 2019-04-16 20:32 | RADIOLOGY REPORT (SQ) ---
EXAM DESCRIPTION: CLINICAL HISTORY: 78 years Female, Pain swelling and bruising COMPARISON: None. FINDINGS: Osteoporosis. No evidence for fracture or dislocation. Mild diffuse soft tissue swelling. IMPRESSION: Chronic findings including osteoporosis and nonspecific soft tissue swelling. No obvious acute findings.
--- NOTE | 2019-04-16 20:35 | RADIOLOGY REPORT (SQ) ---
EXAM DESCRIPTION: XR FOOT 3 OR MORE VIEWS COMPLETED DATE/TME: 04/16/2019 19:31 CLINICAL HISTORY: 78 years, Female, Pain swelling and bruising COMPARISON: None. FINDINGS: 3 views of the left foot. Tarsals and metatarsals are appropriately aligned. Osteopenia. No acute fracture or dislocation. IMPRESSION: 1. No acute fracture or dislocation. copyright 2010 [employer]- All Rights Reserved
[2019-04-16 20:49] LABS: ABSOLUTE BASOPHILS # (AUTO) 0.1 10^3/uL (0.0-0.2); ABSOLUTE LYMPHOCYTES (AUTO) 2.2 10^3/uL (0.5-4.7); ABSOLUTE MONOCYTES (AUTO) 0.5 10^3/uL (0.1-1.4); ABSOLUTE NEUT (AUTO) 3.2 10^3/uL (1.7-8.2); EOSINOPHILS % (AUTO) 0.3 % (0-6); HEMATOCRIT 38.7 % (36.0-47.0); HEMOGLOBIN 12.9 g/dL (12.0-15.5); LYMPHOCYTES % (AUTO) 36.6 % (13-45); MEAN CORPUSCULAR HEMOGLOBIN 27.4 pg (27.0-33.4); MEAN CORPUSCULAR HGB CONC 33.4 g/dL (32.0-36.0); MEAN CORPUSCULAR VOLUME 82 fl (80-97); PLATELET COUNT 221 10^3/uL (150-450); RED BLOOD COUNT 4.72 10^6/uL (3.72-5.28); RED CELL DISTRIBUTION WIDTH 14.8 % (11.5-14.0); SEGMENTED NEUTROPHILS % (AUTO) 53.1 % (42-78); TOTAL CELLS COUNTED % (AUTO) 100 %
[2019-04-16 21:06] LABS: ALKALINE PHOSPHATASE 52 U/L (38-126); ANION GAP 6 (5-19); ASPARTATE AMINO TRANSFERASE 23 U/L (14-36); BILIRUBIN,DIRECT 0.2 mg/dL (0.0-0.4); BILIRUBIN,TOTAL 0.7 mg/dL (0.2-1.3); BLOOD UREA NITROGEN 15 mg/dL (7-20); CARBON DIOXIDE 29 mmol/L (22-30); CHLORIDE 98 mmol/L (98-107); GLUCOSE 93 mg/dL (75-110); POTASSIUM 3.8 mmol/L (3.6-5.0); TOTAL PROTEIN 6.4 g/dL (6.3-8.2)
--- NOTE | 2019-04-16 22:48 | ER Document Report ---
ED General - General Chief Complaint: Foot Pain Stated Complaint: FOOT BRUSING Time Seen by Provider: 04/16/19 19:27 Primary Care Provider: RUBI AGUIAR MD [Primary Care Provider] - Follow up as needed Mode of Arrival: Ambulatory Notes: 78-year-old female presents emergency department complaining of bruising to her left ankle strength 3 days ago associated with swelling to her left leg and ankle starting today as well as bruising tracking up the outside of her left calf. States she was recently discharged from this hospital secondary to a chest pain work-up during which she was receiving Lovenox shots in her abdomen. Denies any injury but states she is having intermittent cramping in her left leg which immediately preceded the bruising. No history of DVT or PE, no history of trauma, no history of bleeding disorder. TRAVEL OUTSIDE OF THE [place] IN LAST 30 DAYS: No - Related Data Allergies/Adverse Reactions: latex [Latex] Allergy (Intermediate, Verified 04/16/19 18:52) ITCHING levofloxacin [From Levaquin] Allergy (Unknown, Verified 04/16/19 18:52) saccharin Allergy (Verified 04/16/19 18:54) Penicillins Adverse Reaction (Mild, Verified 04/16/19 18:52) Yeast infections ibuprofen [From Motrin] Adverse Reaction (Verified 04/16/19 18:52) Past Medical History - General Information source: Patient - Social History Smoking Status: Never Smoker Chew tobacco use (# tins/day): No Frequency of alcohol use: None Drug Abuse: None Family History: Reviewed & Not Pertinent, DM, Hypertension, Malignancy - Past Medical History Cardiac Medical History: Reports: Hx Heart Attack - nonstemi 2018, Hx Hypercholesterolemia, Hx Hypertension Denies: Hx Congestive Heart Failure, Hx Coronary Artery Disease, Hx Pulmonary Embolism Pulmonary Medical History: Reports: Hx Asthma, Hx Bronchitis, Hx Pneumonia Comment Only: Hx COPD - States she has not been diagnosed with COPD Neurological Medical History: Denies: Hx Cerebrovascular Accident, Hx Migraine, Hx Seizures Renal/ Medical History: Denies: Hx Peritoneal Dialysis GI Medical History: Reports: Hx Gastroesophageal Reflux Disease, Hx Hiatal Hernia. Denies: Hx Hepatitis, Hx Ulcer Musculoskeletal Medical History: Reports Hx Arthritis Psychiatric Medical History: Reports: Hx Depression - on occassion Infectious Medical History: Denies: Hx Hepatitis Past Surgical History: Reports: Hx Abdominal Surgery - ODELL, Hx Appendectomy, Hx Orthopedic Surgery, Hx Tonsillectomy. Denies: Hx Hysterectomy, Hx Mastectomy, Hx Open Heart Surgery, Hx Pacemaker - Immunizations Hx Diphtheria, Pertussis, Tetanus Vaccination: No Hx Pneumococcal Vaccination: 07/10/15 Review of Systems - Review of Systems Constitutional: No symptoms reported EENT: No symptoms reported Cardiovascular: Edema Musculoskeletal: See HPI Hematologic/Lymphatic: See HPI -: Yes All other systems reviewed and negative Physical Exam - Vital signs Vitals: Temp Pulse Resp BP Pulse Ox 98.2 F 52 L 18 147/62 H 95 04/16/19 18:55 04/16/19 18:55 04/16/19 18:55 04/16/19 18:55 04/16/19 18:55 Interpretation: Hypertensive, Bradycardic - Notes Notes: GENERAL: Alert, interacts well. No acute distress. HEAD: Normocephalic, atraumatic EYES: Pupils equal, round and reactive to light, extraocular movements intact. ENT: Oral mucosa moist, tongue midline. NECK: Full range of motion, supple, trachea midline. LUNGS: Clear to auscultation bilaterally, no wheezes, rales or rhonchi, no respiratory distress. HEART: Regular rate and rhythm, no murmurs, gallops, rubs. ABDOMEN: Soft, nontender, nondistended, bowel sounds present in all 4 quadrants. EXTREMITIES: Moves all 4 extremities spontaneously, 1+ nonpitting edema to the left ankle and lower half of the calf, moderate bruising noted around the left medial and lateral malleolus, some bruising on the outer aspect of the left calf, negative Yung and Homans sign, nontender, radial and dorsalis pedis pulses 2/4 bilaterally. No cyanosis. NEUROLOGICAL: Alert and oriented x3, normal speech, no facial droop,. PSYCH: Normal mood, normal affect. SKIN: Warm, Dry, normal turgor. Course - Re-evaluation Re-evalutation: 04/16/19 22:45 CBC unremarkable, CMP shows slight low sodium at 133.0, foot and ankle x-rays are negative, venous Doppler ultrasound is negative. No evidence of DVT, no suspicion for PE. Discussed with patient that her bruising may have come from an incidental mild trauma that she did not notice but bruised more than usual because of her recent use of Lovenox. Suggested the patient follow-up with her primary care physician for further investigation should the bruising worsen or she develop pain. - Vital Signs Vital signs: Temp Pulse Resp BP Pulse Ox 98.2 F 52 L 18 147/62 H 95 04/16/19 18:55 04/16/19 18:55 04/16/19 18:55 04/16/19 18:55 04/16/19 18:55 - Laboratory Result Diagrams: 04/16/19 20:40 04/16/19 20:40 Laboratory results interpreted by me: 04/16/19 04/16/19 20:40 20:40 RDW 14.8 H Sodium 133.0 L Discharge - Discharge Clinical Impression: Superficial bruising of ankle Qualifiers: Encounter type: initial encounter Laterality: left Qualified Code(s): S90.02XA - Contusion of left ankle, initial encounter Condition: Stable Disposition: HOME, SELF-CARE Additional Instructions: Today we did not find any evidence of blood clot in your left leg. There is also no evidence of fracture. I see no signs of infection. For the cramping in your left leg and may help to eat one banana every day. Your potassium was at the low range of normal at 3.8. You do not need to take potassium pills every day. Please continue to follow-up with your primary care physician as an outpatient and return to the emergency department should you develop a large amount of swelling or severe pain. Referrals: RUBI AGUIAR MD [Primary Care Provider] - Follow up as needed
[2019-04-16 23:05] VITALS: BP 149/61
--- NOTE | 2019-04-17 05:34 | RADIOLOGY REPORT (SQ) ---
EXAM DESCRIPTION: US EXTREMITY VEINS UNILATERAL COMPLETED DATE/TME: 04/16/2019 19:30 CLINICAL HISTORY: 78 years, Female, Swelling and pain left calf ankle and foot COMPARISON: None. TECHNIQUE: Transverse and longitudinal sonographic images of the left lower extremity deep venous system LIMITATIONS: None. FINDINGS: No visible areas of thrombus. Normal compression and augmentation throughout. Doppler images are unremarkable IMPRESSION: Negative exam copyright 2010 [employer]- All Rights Reserved
== END 2019-04-16 23:05 | disposition home or self-care (01) ==
LOC: ER 18:49
DX: S90.02XA Contusion of left ankle, initial encounter (principal); M25.572 Pain in left ankle and joints of left foot; M79.89 Other specified soft tissue disorders; X58.XXXA Exposure to other specified factors, initial encounter; I25.2 Old myocardial infarction; J44.9 Chronic obstructive pulmonary disease, unspecified
CPT/HCPCS: 36415; 80053; 85025; 93971; 99284

== ENCOUNTER 2019-05-14 18:46 | Emergency (ER) | payer MEDICARE ==
[2019-05-14 19:07] LABS: ABSOLUTE BASOPHILS # (AUTO) 0.1 10^3/uL (0.0-0.2); ABSOLUTE LYMPHOCYTES (AUTO) 2.7 10^3/uL (0.5-4.7); ABSOLUTE MONOCYTES (AUTO) 0.7 10^3/uL (0.1-1.4); ABSOLUTE NEUT (AUTO) 3.5 10^3/uL (1.7-8.2); EOSINOPHILS % (AUTO) 0.5 % (0-6); HEMATOCRIT 38.4 % (36.0-47.0); HEMOGLOBIN 12.9 g/dL (12.0-15.5); LYMPHOCYTES % (AUTO) 38.2 % (13-45); MEAN CORPUSCULAR HEMOGLOBIN 28.2 pg (27.0-33.4); MEAN CORPUSCULAR HGB CONC 33.7 g/dL (32.0-36.0); MEAN CORPUSCULAR VOLUME 84 fl (80-97); MONOCYTES % (AUTO) 10.3 % (3-13); PLATELET COUNT 206 10^3/uL (150-450); RED BLOOD COUNT 4.59 10^6/uL (3.72-5.28); RED CELL DISTRIBUTION WIDTH 15.2 % (11.5-14.0); TOTAL CELLS COUNTED % (AUTO) 100 %
--- NOTE | 2019-05-14 19:16 | RADIOLOGY REPORT (SQ) ---
EXAM DESCRIPTION: CHEST SINGLE VIEW COMPLETED DATE/TIME: 05/14/2019 7:02 pm REASON FOR STUDY: bed 20 cp COMPARISON: 04/04/2019 EXAM PARAMETERS: NUMBER OF VIEWS: One view. TECHNIQUE: Single frontal radiographic view of the chest acquired. RADIATION DOSE: NA LIMITATIONS: None. FINDINGS: LUNGS AND PLEURA: Considerable opacification in the right lower lung field appears chronic . MEDIASTINUM AND HILAR STRUCTURES: Hiatal hernia. HEART AND VASCULAR STRUCTURES: Cardiomegaly. No heather pulmonary edema. BONES: No acute findings. HARDWARE: None in the chest. OTHER: No other significant finding. IMPRESSION: Cardiomegaly without pulmonary edema. Hiatal hernia. Cannot exclude dense right lower lobe pneumonia. TECHNICAL DOCUMENTATION: JOB ID: [id number] [employer]- All Rights Reserved Reading location - IP/workstation name: [email or web address]
--- NOTE | 2019-05-14 19:22 | ER Document Report ---
ED Cardiac - General Mode of Arrival: Medic Information source: Patient TRAVEL OUTSIDE OF THE [place] IN LAST 30 DAYS: No - HPI Patient complains to provider of: Chest pain, Shortness of breath Was the onset of pain: Sudden Chest pain location: Substernal Quality of pain: Intermittent, Mild Severity now: Mild Pain level currently: Denies Chest pain precipitating factors: Coughing - choked while eating Cardiac risk factors: Hypertension, Hx OK Positive cardiac history: Yes Associated symptoms: Shortness of breath. denies: Abdominal pain, Anxiety, Back pain, Fever/chills, Nausea/vomiting, Palpitations Similar symptoms previously: No Recently seen / treated by doctor: No <ROSSANA PISANO - Last Filed: 05/14/19 19:17> <JENNY MIDDLETON - Last Filed: 05/14/19 23:40> - General Chief Complaint: Chest Pressure Stated Complaint: CHEST PRESSURE Time Seen by Provider: 05/14/19 18:54 Primary Care Provider: RUBI AGUIAR MD [Primary Care Provider] - Follow up as needed Notes: Patient states that she was eating a sandwich just prior to arrival, coughed and choked. Patient states that she had some shortness of breath and chest pain after this happened and thought that the pain lasted a little longer than what would be normal. Patient presently denies any shortness of breath or chest pain at this time. Patient denies any abdominal pain, nausea or vomiting. Patient denies any fever. (ROSSANA PISANO) - Related Data Allergies/Adverse Reactions: latex [Latex] Allergy (Intermediate, Verified 05/14/19 18:58) ITCHING levofloxacin [From Levaquin] Allergy (Unknown, Verified 05/14/19 18:58) saccharin Allergy (Verified 05/14/19 18:58) Penicillins Adverse Reaction (Mild, Verified 05/14/19 18:58) Yeast infections ibuprofen [From Motrin] Adverse Reaction (Verified 05/14/19 18:58) Past Medical History - General Information source: Patient - Social History Smoking Status: Never Smoker Frequency of alcohol use: Occasional Drug Abuse: None Occupation: none Lives with: Alone Family History: Reviewed & Not Pertinent, DM, Hypertension, Malignancy Patient has suicidal ideation: No Patient has homicidal ideation: No - Past Medical History Cardiac Medical History: Reports: Hx Heart Attack - nonstemi 2018, Hx Hypercholesterolemia, Hx Hypertension Pulmonary Medical History: Reports: Hx Asthma, Hx Bronchitis, Hx Pneumonia Renal/ Medical History: Denies: Hx Peritoneal Dialysis GI Medical History: Reports: Hx Gastroesophageal Reflux Disease, Hx Hiatal Hernia Musculoskeletal Medical History: Reports Hx Arthritis Psychiatric Medical History: Reports: Hx Depression - on occassion Infectious Medical History: Denies: Hx Hepatitis Past Surgical History: Reports: Hx Abdominal Surgery - ODELL, Hx Appendectomy, Hx Orthopedic Surgery, Hx Tonsillectomy - Immunizations Hx Diphtheria, Pertussis, Tetanus Vaccination: No Hx Pneumococcal Vaccination: 07/10/15 <ROSSANA PISANO - Last Filed: 05/14/19 19:17> Review of Systems - Review of Systems Constitutional: No symptoms reported. denies: Fever, Recent illness EENT: No symptoms reported Cardiovascular: Chest pain Respiratory: Cough, Short of breath. denies: Hemoptysis Gastrointestinal: No symptoms reported. denies: Abdominal pain, Nausea, Vomiting Genitourinary: No symptoms reported Female Genitourinary: No symptoms reported Musculoskeletal: No symptoms reported. denies: Back pain Skin: No symptoms reported Hematologic/Lymphatic: No symptoms reported Neurological/Psychological: No symptoms reported <ROSSANA PISANO - Last Filed: 05/14/19 19:17> Physical Exam - General General appearance: Appears well, Alert In distress: None - HEENT Head: Normocephalic, Atraumatic Eyes: Normal Conjunctiva: Normal Nasal: Normal Mouth/Lips: Normal Mucous membranes: Normal Neck: Normal, Supple. No: Lymphadenopathy - Respiratory Respiratory status: No respiratory distress Chest status: Nontender Breath sounds: Normal. No: Rales, Rhonchi, Stridor, Wheezing Chest palpation: Normal - Cardiovascular Rhythm: Regular Heart sounds: S1 appreciated, S2 appreciated - Abdominal Inspection: Normal Distension: No distension Bowel sounds: Normal Tenderness: Nontender - Back Back: Other - kyphosis - Extremities General upper extremity: Normal inspection, Nontender, Normal ROM General lower extremity: Normal inspection, Nontender, Normal ROM - Neurological Neuro grossly intact: Yes Cognition: Normal Umair Coma Scale Eye Opening: Spontaneous Umair Coma Scale Verbal: Oriented Umair Coma Scale Motor: Obeys Commands Umair Coma Scale Total: 15 - Psychological Associated symptoms: Normal affect, Normal mood - Skin Skin Temperature: Warm Skin Moisture: Dry Skin Color: Normal <ANU PISANODAISHA - Last Filed: 05/14/19 19:17> - Vital signs Vitals: Temp Pulse Resp BP Pulse Ox 97.4 F 64 20 144/79 H 94 05/14/19 18:48 05/14/19 18:48 05/14/19 18:48 05/14/19 18:48 05/14/19 18:48 Course - Laboratory Result Diagrams: 05/14/19 18:55 05/14/19 18:55 <ROSSANA PISANO - Last Filed: 05/14/19 19:17> - Laboratory Result Diagrams: 05/14/19 18:55 05/14/19 18:55 <JENNY MIDDLETON - Last Filed: 05/14/19 23:40> - Re-evaluation Re-evalutation: Patient is sleeping but easily aroused on my reevaluation. She was complaining of heartburn and was given famotidine. I did receive report on this patient, plan was to cycle her troponins and because the remaining work-up was negative and her symptoms were not suggesting a concerning process patient will be discharged for follow-up outpatient. I did discuss the work-up with patient, plan, she states satisfaction agreement, she has no additional complaints at this time. (JENNY MIDDLETON) - Vital Signs Vital signs: Temp Pulse Resp BP Pulse Ox 97.4 F 64 21 H 136/76 H 96 05/14/19 18:48 05/14/19 18:48 05/14/19 23:00 05/14/19 23:00 05/14/19 23:00 - Laboratory Laboratory results interpreted by me: 05/14/19 05/14/19 18:55 18:55 RDW 15.2 H Chloride 108 H Total Protein 5.3 L Albumin 3.1 L Discharge <ROSSANA PISANO - Last Filed: 05/14/19 19:17> <JENNY MIDDLETON - Last Filed: 05/14/19 23:40> - Discharge Clinical Impression: Choking episode Condition: Stable Disposition: HOME, SELF-CARE Additional Instructions: Your work-up and evaluation tonight are reassuring. I recommend that you increase your ranitidine to twice a day. Follow-up with the gastroenterology referral. Return if you worsen including returned or severe pain, vomiting, difficulty breathing, passing out, or any other concerning or worsening symptoms. Referrals: BAN RUSS MD [ACTIVE STAFF] - Follow up as needed WILLIE NJ MD [ACTIVE STAFF] - Follow up as needed
[2019-05-14 19:23] LABS: ALBUMIN 3.1 g/dL (3.5-5.0); ALKALINE PHOSPHATASE 43 U/L (38-126); ANION GAP 6 (5-19); ASPARTATE AMINO TRANSFERASE 19 U/L (14-36); BILIRUBIN,DIRECT 0.3 mg/dL (0.0-0.4); BILIRUBIN,TOTAL 0.5 mg/dL (0.2-1.3); BLOOD UREA NITROGEN 17 mg/dL (7-20); CALCIUM 8.4 mg/dL (8.4-10.2); CARBON DIOXIDE 24 mmol/L (22-30); CHLORIDE 108 mmol/L (98-107); CREATINE KINASE 51 U/L (30-135); GLUCOSE 86 mg/dL (75-110); POTASSIUM 3.6 mmol/L (3.6-5.0); TOTAL PROTEIN 5.3 g/dL (6.3-8.2)
[2019-05-14 19:35] LABS: CREATINE KINASE MB 0.63 ng/mL (<4.55)
[2019-05-14 19:36] LABS: TROPONIN I < 0.012 ng/mL
[2019-05-14] MEDS ORDERED: MAG HYDROX/AL HYDROX/SIMETH SUSP 30 ML UDCUP PO ONE (19:49)
[2019-05-14 21:18] LABS: APPEARANCE,URINE CLEAR; BILIRUBIN,URINE NEGATIVE (NEGATIVE); COLOR,URINE STRAW; GLUCOSE, URINE NEGATIVE (NEGATIVE); KETONES,URINE NEGATIVE (NEGATIVE); LEUKOCYTE ESTERASE,URINE NEGATIVE (NEGATIVE); NITRITE,URINE NEGATIVE (NEGATIVE); PROTEIN,URINE NEGATIVE (NEGATIVE); UROBILINOGEN,URINE NEGATIVE mg/dL (<2.0)
[2019-05-14 23:15] VITALS: BP 136/76
[2019-05-14] MEDS ORDERED: FAMOTIDINE 20 MG TABLET PO ONE (23:36)
--- NOTE | 2019-05-17 18:46 | EKG REPORT ---
SEVERITY:- ABNORMAL ECG - SINUS RHYTHM NONSPECIFIC T ABNORMALITIES, LATERAL LEADS : Confirmed by: Simran Pulliam 17-May-2019 18:45:54
== END 2019-05-14 23:52 | disposition home or self-care (01) ==
LOC: ER 18:46
DX: T17.908A Unspecified foreign body in respiratory tract, part unspecified causing other injury, initial encounter (principal); M40.209 Unspecified kyphosis, site unspecified; R07.9 Chest pain, unspecified; R06.02 Shortness of breath; R05 Cough; X58.XXXA Exposure to other specified factors, initial encounter; I10 Essential (primary) hypertension; J45.909 Unspecified asthma, uncomplicated
CPT/HCPCS: 93005; 99284; 36415; 82553; 82550; 85025; 80053; 81001; 84484; 71045; 93010; A9270

== ENCOUNTER → 2019-05-20 | Outpatient (CLI) | payer MEDICARE ==
--- NOTE | 2019-05-20 21:26 | XCELERA REPORT ---
[address] [address] Transthoracic Echocardiogram Report Name: BHUPINDER NARVAEZ Age: 78 yrs Gender: Female : 1940 Patient Status: Outpatient Patient Location: [facility] Study Date: 05/20/2019 09:18 AM Height: 59 in Weight: 127 lb BSA: 1.5 m2 Procedure: A two-dimensional transthoracic echocardiogram with color flow and Doppler was performed. The study was technically limited with all images being suboptimal in quality. Reason For Study: CP History: CHEST PAIN. Ordering Physician: PEG NAVARRO Performed By: Garfield Gallegos Interpretation Summary The left ventricle is normal in size. There is normal left ventricular wall thickness. LV EF is 60% The left ventricular ejection fraction is within normal limits. Doppler measurements suggest normal left ventricular diastolic function The left ventricular wall motion is normal. There is no thrombus. Cannot assess ASD ,VSD , or PFO. The right ventricle is normal in size and function. The right atrium is normal. The left atrial size is normal. There is mild mitral annular calcification. There is no evidence of mitral valve prolapse. There is no vegetation seen on the mitral valve. There is no mitral valve stenosis. There is a moderate amount of mitral regurgitation There is no aortic valvular vegetation. There is no aortic valve stenosis There is aortic sclerosis without aortic stenosis. There is a trace amount of aortic regurgitation There is no tricuspid stenosis. There is a mild amount of tricuspid regurgitation There is mild pulmonary hypertension by echo RVSP is 33 to 38 mm of Hg , with RA mean of 5 to 10. There is no pulmonic valvular stenosis. There is a trace amount of pulmonic regurgitation The aortic root is normal size. The inferior vena cava appeared normal and decreased > 50% with respiration (RAP 5-10 mmHg) There is no pericardial effusion. MMode/2D Measurements & Calculations RVDd: 3.1 cm LVIDd: 4.9 cm FS: 29.8 % Ao root diam: 3.4 cm IVSd: 0.85 cm LVIDs: 3.4 cm EDV(Teich): Ao root area: LVPWd: 0.76 cm 111.3 ml 9.0 cm2 ESV(Teich): 48.1 mlLA dimension: 3.9 cm EF(Teich): 56.7 % LVLd ap4: 8.8 cm SV(MOD-sp4): EDV(MOD-sp4): 45.0 ml 82.0 ml LVLs ap4: 7.8 cm ESV(MOD-sp4): 37.0 ml EF(MOD-sp4): 54.9 % Doppler Measurements & Calculations MV E max elida: MV P1/2t max elida: Ao V2 max: LV V1 max P.3 cm/sec 87.3 cm/sec 114.8 cm/sec 2.4 mmHg MV A max elida: MV P1/2t: 94.9 msec Ao max P.3 mmHg LV V1 max: 62.6 cm/sec MVA(P1/2t): 2.3 cm2 77.1 cm/sec MV E/A: 1.1 MV dec slope: LV dP/dt: 269.5 cm/sec2 1010 mmHg/s MV dec time: 0.30 sec PA V2 max: TR max elida: MV P1/2t-pr_phl: 71.3 cm/sec 266.6 cm/sec 94.9 msec PA max PG: TR max P.4 mmHg 2.0 mmHg Left Ventricle The left ventricle is normal in size. There is normal left ventricular wall thickness. LV EF is 60%. The left ventricular ejection fraction is within normal limits. Doppler measurements suggest normal left ventricular diastolic function. The left ventricular wall motion is normal. There is no thrombus. Cannot assess ASD ,VSD , or PFO. Right Ventricle The right ventricle is normal in size and function. Atria The right atrium is normal. The left atrial size is normal. Mitral Valve There is mild mitral annular calcification. There is no evidence of mitral valve prolapse. There is no vegetation seen on the mitral valve. There is no mitral valve stenosis. There is a moderate amount of mitral regurgitation. Aortic Valve There is no aortic valvular vegetation. There is no aortic valve stenosis. There is aortic sclerosis without aortic stenosis. There is a trace amount of aortic regurgitation. Tricuspid Valve There is no tricuspid stenosis. There is a mild amount of tricuspid regurgitation. There is mild pulmonary hypertension by echo. RVSP is 33 to 38 mm of Hg , with RA mean of 5 to 10. Pulmonic Valve There is no pulmonic valvular stenosis. There is a trace amount of pulmonic regurgitation. Great Vessels The aortic root is normal size. The inferior vena cava appeared normal and decreased > 50% with respiration (RAP 5-10 mmHg). Effusions There is no pericardial effusion. : PEG NAVARRO, Peg
== END ==
LOC: SP 08:17
PROVIDERS: ATTEND Specialist
DX: R07.9 Chest pain, unspecified (principal)
CPT/HCPCS: 93306

== ENCOUNTER 2019-07-23 11:32 | Inpatient (IN) | payer MEDICARE ==
--- NOTE | 2019-07-23 12:06 | RADIOLOGY REPORT (SQ) ---
EXAM DESCRIPTION: CHEST SINGLE VIEW COMPLETED DATE/TIME: 07/23/2019 11:54 am REASON FOR STUDY: SOB COMPARISON: 05/14/2019 02/09/2019 EXAM PARAMETERS: NUMBER OF VIEWS: One view. TECHNIQUE: Single frontal radiographic view of the chest acquired. RADIATION DOSE: NA LIMITATIONS: None. FINDINGS: LUNGS AND PLEURA: There is considerable opacification in the right lower lung field. MEDIASTINUM AND HILAR STRUCTURES: No masses. Contour normal. HEART AND VASCULAR STRUCTURES: Heart size is borderline. No heather pulmonary edema. BONES: No acute findings. HARDWARE: None in the chest. OTHER: No other significant finding. IMPRESSION: Borderline cardiomegaly without pulmonary edema. Airspace disease in right middle and l ower lobes, likely pneumonia. TECHNICAL DOCUMENTATION: JOB ID: [id number] [employer]- All Rights Reserved Reading location - IP/workstation name: [email or web address]
[2019-07-23 12:13] LABS: VENOUS BLOOD BASE EXCESS 1.7 mmol/L; VENOUS BLOOD PCO2 49.9 mmHg (35-63); VENOUS BLOOD PH 7.37 (7.30-7.42)
[2019-07-23 12:14] LABS: ABSOLUTE EOSINOPHILS # (AUTO) 0.1 10^3/uL (0.0-0.6); ABSOLUTE LYMPHOCYTES (AUTO) 1.5 10^3/uL (0.5-4.7); ABSOLUTE MONOCYTES (AUTO) 0.4 10^3/uL (0.1-1.4); ABSOLUTE NEUT (AUTO) 3.9 10^3/uL (1.7-8.2); BASOPHILS % (AUTO) 0.8 % (0-2); EOSINOPHILS % (AUTO) 2.4 % (0-6); HEMATOCRIT 44.5 % (36.0-47.0); LYMPHOCYTES % (AUTO) 25.4 % (13-45); MEAN CORPUSCULAR HEMOGLOBIN 28.4 pg (27.0-33.4); MEAN CORPUSCULAR HGB CONC 33.6 g/dL (32.0-36.0); MEAN CORPUSCULAR VOLUME 85 fl (80-97); MONOCYTES % (AUTO) 6.2 % (3-13); PLATELET COUNT 181 10^3/uL (150-450); RED BLOOD COUNT 5.26 10^6/uL (3.72-5.28); RED CELL DISTRIBUTION WIDTH 14.9 % (11.5-14.0); SEGMENTED NEUTROPHILS % (AUTO) 65.2 % (42-78); TOTAL CELLS COUNTED % (AUTO) 100 %; WHITE BLOOD COUNT 5.9 10^3/uL (4.0-10.5)
[2019-07-23 12:30] LABS: ALBUMIN 4.6 g/dL (3.5-5.0); ALKALINE PHOSPHATASE 72 U/L (38-126); ANION GAP 8 (5-19); ASPARTATE AMINO TRANSFERASE 25 U/L (14-36); BILIRUBIN,DIRECT 0.1 mg/dL (0.0-0.4); BILIRUBIN,TOTAL 0.7 mg/dL (0.2-1.3); BLOOD UREA NITROGEN 16 mg/dL (7-20); CALCIUM 10.3 mg/dL (8.4-10.2); CARBON DIOXIDE 30 mmol/L (22-30); CHLORIDE 101 mmol/L (98-107); GLUCOSE 106 mg/dL (75-110); POTASSIUM 4.5 mmol/L (3.6-5.0); TOTAL PROTEIN 7.6 g/dL (6.3-8.2)
[2019-07-23 12:55] LABS: APPEARANCE,URINE CLEAR; BILIRUBIN,URINE NEGATIVE (NEGATIVE); COLOR,URINE YELLOW; GLUCOSE, URINE NEGATIVE (NEGATIVE); KETONES,URINE NEGATIVE (NEGATIVE); LEUKOCYTE ESTERASE,URINE NEGATIVE (NEGATIVE); NITRITE,URINE NEGATIVE (NEGATIVE); PROTEIN,URINE NEGATIVE (NEGATIVE); URINE SPECIFIC GRAVITY 1.016; UROBILINOGEN,URINE NEGATIVE mg/dL (<2.0)
--- NOTE | 2019-07-23 13:25 | ER Document Report ---
ED General - General Chief Complaint: Respiratory Distress Stated Complaint: RESPIRATORY DISTRESS Time Seen by Provider: 07/23/19 13:23 Mode of Arrival: Medic Information source: Patient TRAVEL OUTSIDE OF THE [place] IN LAST 30 DAYS: No - HPI Notes: 78-year-old female with a history of asthma, CAD, GERD, CHF presents to the emergency room by EMS for complaints of respiratory distress and weakness for the last 2 days. Patient does not use at home oxygen. Patient state she felt that it was hard to breathe. Does have a nebulizer at home which she did do recently. Patient's PCP is Dr. Bai. Denies fevers, chills, chest pain,palpitations, nausea, vomiting, diarrhea, abdominal pain, hematuria,blurred vision, double vision, loss of vision, speech changes, LH, dizziness, syncope, headaches, ST, neck pain, bowel or bladder dysfunction, saddle anesthesia, numbness or tingling in bilateral upper or lower extremities equally, muscle paralysis, weakness in bilateral upper or lower extremities equally or rash. - Related Data Allergies/Adverse Reactions: latex [Latex] Allergy (Intermediate, Verified 05/14/19 18:58) ITCHING levofloxacin [From Levaquin] Allergy (Unknown, Verified 05/14/19 18:58) saccharin Allergy (Verified 05/14/19 18:58) Penicillins Adverse Reaction (Mild, Verified 05/14/19 18:58) Yeast infections ibuprofen [From Motrin] Adverse Reaction (Verified 05/14/19 18:58) Home Medications: pt cannot find medication list at this time. Past Medical History - General Information source: Patient - Social History Smoking Status: Unknown if Ever Smoked Family History: Reviewed & Not Pertinent, DM, Hypertension, Malignancy Patient has suicidal ideation: No Patient has homicidal ideation: No - Past Medical History Cardiac Medical History: Reports: Hx Heart Attack - nonstemi 2018, Hx Hypercholesterolemia, Hx Hypertension Denies: Hx Congestive Heart Failure, Hx Coronary Artery Disease, Hx Pulmonary Embolism Pulmonary Medical History: Reports: Hx Asthma, Hx Bronchitis, Hx Pneumonia Comment Only: Hx COPD - States she has not been diagnosed with COPD Neurological Medical History: Denies: Hx Cerebrovascular Accident, Hx Migraine, Hx Seizures Renal/ Medical History: Denies: Hx Peritoneal Dialysis GI Medical History: Reports: Hx Gastroesophageal Reflux Disease, Hx Hiatal Hernia. Denies: Hx Hepatitis, Hx Ulcer Musculoskeletal Medical History: Reports Hx Arthritis Psychiatric Medical History: Reports: Hx Depression - on occassion Infectious Medical History: Denies: Hx Hepatitis Past Surgical History: Reports: Hx Abdominal Surgery - ODELL, Hx Appendectomy, Hx Orthopedic Surgery, Hx Tonsillectomy. Denies: Hx Hysterectomy, Hx Mastectomy, Hx Open Heart Surgery, Hx Pacemaker - Immunizations Hx Diphtheria, Pertussis, Tetanus Vaccination: No Hx Pneumococcal Vaccination: 07/10/15 Review of Systems - Review of Systems Constitutional: See HPI EENT: No symptoms reported Cardiovascular: No symptoms reported Respiratory: See HPI Gastrointestinal: No symptoms reported Genitourinary: No symptoms reported Female Genitourinary: No symptoms reported Musculoskeletal: No symptoms reported Skin: No symptoms reported Hematologic/Lymphatic: No symptoms reported Neurological/Psychological: No symptoms reported Physical Exam - Vital signs Vitals: Pulse Ox 92 07/23/19 11:34 - Notes Notes: PHYSICAL EXAMINATION: reviewed vital signs by RN GENERAL:chronically ill, well-nourished and in no acute distress. HEAD: Atraumatic, normocephalic. EYES: Pupils equal round and reactive to light, extraocular movements intact, conjunctiva are normal. ENT: Nares patent, oropharynx clear without exudates. Moist mucous membranes. NECK: Normal range of motion, supple without lymphadenopathy LUNGS: Diminished breath sounds in all lobes, after breathing treatment, lungs clear to auscultation upper lobes and diminished in lower lobes. HEART: Regular rate and rhythm without murmurs ABDOMEN: Soft, nontender, nondistended abdomen. No guarding, no rebound. No masses appreciated. Female : deferred Musculoskeletal: Normal range of motion, no pitting or edema. No cyanosis. NEUROLOGICAL: Cranial nerves grossly intact. Normal speech, normal gait. Normal sensory, motor exams PSYCH: Normal mood, normal affect. SKIN: Warm, Dry, normal turgor, no rashes or lesions noted. noted bilateral pedal edema Course - Re-evaluation Re-evalutation: 07/23/19 13:57 Afebrile vital stable, on room air and in no distress. CBC negative for any leukocytosis or anemia, CMP negative for any renal or hepatic dysfunction, no electrolyte disturbances. Urinalysis negative for any UTI, patient's chest x- ray did show pulmonary edema, right middle lobe and right lower lobe pneumonia. Patient's respiratory rate in the 30s, patient does go down to 90% on room air without encouragement to breathe, patient given nebulizer treatment which did bring her oxygenation up to 92%, when patient is talking and sitting up in bed, her pulse ox does go up to 95% on room air. Patient given DuoNeb as well as Solu-Medrol 125 IVP. patient initiated on Rocephin and levofloxacin for c ommunity acquired pneumonia. On reevaluation patient states she is feeling a little bit better however she does have some work with breathing. I did consult with Dr. Russell Bai, patient's PCP provider, who would like a CTA to rule out PE due to tachypnea, tachycardia and will admit her to the stepdown ICU under his service. - Vital Signs Vital signs: Temp Pulse Resp BP Pulse Ox 97.6 F 101 H 26 H 158/78 H 90 L 07/23/19 18:29 07/23/19 18:29 07/23/19 18:29 07/23/19 18:29 07/23/19 14:01 - Laboratory Result Diagrams: 07/23/19 11:45 07/23/19 16:45 Laboratory results interpreted by me: 07/23/19 07/23/19 07/23/19 11:45 11:45 11:45 RDW 14.9 H Calcium 10.3 H NT-Pro-B Natriuret Pep 469 H Discharge - Discharge Clinical Impression: Scoliosis (and kyphoscoliosis), idiopathic, Respiratory distress, Shortness of breath, Hernia, mediastinum Asthma Qualifiers: Asthma severity: mild Asthma exacerbation Qualifiers: Asthma severity: moderate Pneumonia Qualifiers: Pneumonia type: due to unspecified organism Condition: Stable Disposition: ADMITTED INPATIENT Unit Admitted: [facility]
[2019-07-23] MEDS ORDERED: LEVOFLOXACIN 750 MG/D5W RTU 750 MG/150 ML RTUPB IV ONE (13:43)
[2019-07-23] MEDS ORDERED: FUROSEMIDE INJ/PF 40 MG/4 ML SDV IV ONE (13:54)
[2019-07-23] MEDS ORDERED: IPRATROPIUM/ALBUTEROL 0.5-2.5 MG/3 ML AMPUL NEB ONE (13:56)
[2019-07-23 14:09] LABS: CREATINE KINASE 43 U/L (30-135)
[2019-07-23] MEDS: CEFTRIAXONE 1 GM/D5W RTU 1 GM/50 ML RTUPB IV SCH (14:11)
[2019-07-23 14:44] LABS: NT PRO BNP 469 pg/mL (<450)
[2019-07-23 14:46] LABS: TROPONIN I < 0.012 ng/mL
[2019-07-23] MEDS ORDERED: METHYLPREDNISOLONE INJ 125 MG/2 ML SDV IV ONE (14:57)
[2019-07-23] MEDS ORDERED: ONDANSETRON HCL INJ/PF 4 MG/2 ML SDV IV PRN (15:22)
--- NOTE | 2019-07-23 15:49 | RADIOLOGY REPORT (SQ) ---
EXAM DESCRIPTION: CTA CHEST COMPLETED DATE/TIME: 07/23/2019 3:34 pm REASON FOR STUDY: 90% RA, tachycardia, tachypnea, PNA, r/o PE COMPARISON: 04/04/2019 TECHNIQUE: CT scan of the chest performed using helical scanning technique with dynamic intravenous contrast injection. Images reviewed with lung, soft tissue and bone windows. Reconstructed coronal and sagittal MPR images reviewed. Additional 3 dimensional post-processing performed to develop Maximal Intensity Projection images (GA P). All images stored on PACS. All CT scanners at this facility use dose modulation, iterative reconstruction, and/or weight based d osing when appropriate to reduce radiation dose to as low as reasonably achievable (ALARA). [facility]: Dose Right [facility]: CareDose [facility]: Dose Right [facility]: Teradose 4D [facility]: EarlyShares CONTRAST TYPE AND DOSE: contrast/concentration: Isovue 350.00 mg/ml; Total Contrast Delivered: 44.0 ml; Total Saline Delivered: 64.7 ml Contrast bolus adequate for pulmonary arteries and aorta. RENAL FUNCTION: BUN 16 creatinine 0.7 RADIATION DOSE: CT Rad equipment meets quality standard of care and radiation dose reduction techniq ues were employed. CTDIvol: 6.6 - 14.3 mGy. DLP: 498 mGy-cm. . LIMITATIONS: None. FINDINGS: LUNGS AND PLEURA: There is large anterior diaphragmatic hernia on the right with stool - c ontaining large bowel above the diaphragm. No pulmonary infiltrate or mass. Atelectatic changes in the lower lobes. AORTA AND GREAT VESSELS: No aneurysm. No dissection. HEART: No pericardial effusion. No significant coronary artery calcifications. PULMONARY ARTERIES: No emboli visualized in the main pulmonary arteries or the segmental branches. HILAR AND MEDIASTINAL STRUCTURES: Small hiatal hernia. No hilar or mediastinal adenopathy or mass. HARDWARE: None in the chest. UPPER ABDOMEN: No significant findings. Limited exam. THYROID AND OTHER SOFT TISSUES: No masses. No adenopathy. BONES: No acute or significant finding. 3D MIPS: Confirm above findings. OTHER: No other significant finding. IMPRESSION: 1 1. There is no pulmonary embolus. There is no aortic aneurysm or dissection. 2. 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 Small hiatal hernia. COMMENT: Quality ID # [id number]: Final reports with documentation of one or more dose reduction techniques (e.g., Automated exposure control, adjustment of the mA and/or kV according to patient size, use of iterative reconstruction technique) TECHNICAL DOCUMENTATION: JOB ID: [id number] [employer]- All Rights Reserved Reading location - IP/workstation name: [email or web address]
[2019-07-23 17:37] LABS: ANION GAP 13 (5-19); BLOOD UREA NITROGEN 16 mg/dL (7-20); CALCIUM 10.5 mg/dL (8.4-10.2); CARBON DIOXIDE 26 mmol/L (22-30); CHLORIDE 102 mmol/L (98-107); CREATINE KINASE 46 U/L (30-135); GLUCOSE 108 mg/dL (75-110)
--- NOTE | 2019-07-23 17:39 | PDOC H&P ---
History of Present Illness Admission Date/PCP: 07/23/19 15:58 RUBI AGUIAR MD Patient complains of: Shortness of the breath History of Present Illness: BHUPINDER Walsh LADUE is a 78 year old female Is a 78-year-old female's with a history of the hypertension's hyperlipidemia history of the paraesophageal reflex history of the asthma and history of the coronary disease came to the emergency department with a complaining of her shortness of the breath and the respiratory distressed patients called EMS brought to the emergency department will patient initial chest x-ray was consistent with a pneumonia Patient's at this point underwent with a CT angiogram with associated large paraesophageal hernia which patient have this for a long time seen by the Dr. Cool this year and endoscopy was done Patient still received the nebulizer treatments and IV antibiotics Also recently seen by Dr. HUNTLEY have echocardiogram was done with the EF was normal Patient's having some mild vascular congestion's and cardiomegaly Patient's CTA negative for any pulmonary embolism At this point decided to admit the patient in the hospital for further evaluations Is denied any chest pain Feel better after nebulizer treatments Past Medical History Cardiac Medical History: Reports: Myocardial Infarction - nonstemi 2018, Hyperlipidema, Hypertension Denies: Congestive Heart Failure, Coronary Artery Disease, Pulmonary Embolism Pulmonary Medical History: Reports: Asthma, Bronchitis, Pneumonia Comment Only: Chronic Obstructive Pulmonary Disease (COPD) - States she has not been diagnosed with COPD Neurological Medical History: Denies: Migraine, Seizures GI Medical History: Reports: Gastroesophageal Reflux Disease, Hiatal Hernia Denies: Hepatitis Musculoskeltal Medical History: Reports: Arthritis Psychiatric Medical History: Reports: Depression - on occassion Hematology: Reports: Anemia Denies: Sickle Cell Disease Past Surgical History Past Surgical History: Reports: Appendectomy, Orthopedic Surgery, Tonsillectomy Denies: Amputation, Hysterectomy, Mastectomy, Pacemaker Social History Smoking Status: Unknown if Ever Smoked Frequency of Alcohol Use: Occasional Hx Recreational Drug Use: No Drugs: None Hx Prescription Drug Abuse: No Family History Family History: Reviewed & Not Pertinent, DM, Hypertension, Malignancy Parental Family History Reviewed: Yes Children Family History Reviewed: Yes Sibling(s) Family History Reviewed.: Yes Medication/Allergy Home Medications: Albuterol Sulfate [Ventolin 0.083% Neb 2.5 mg/3 ml Ampul] 1 vial NEB RTQ8HP PRN 07/23/19 Albuterol Sulfate [Ventolin Hfa 8 gm Mdi (1 Mdi/ER Disp)] 2 puff IH Q4 07/23/19 Aspirin [Adult Low Dose Aspirin EC] 81 mg PO DAILY 07/23/19 Atorvastatin Calcium [Lipitor 20 mg Tablet] 20 mg PO QHS 07/23/19 Benzonatate [Tessalon Perles 100 mg Capsule] 100 mg PO Q8HP PRN 07/23/19 Fluticasone/Salmeterol [Advair 500-50 Diskus 14 Dose/Diskus] 1 puff IH BID 07/23/19 Losartan Potassium [Cozaar 100 mg Tablet] 100 mg PO DAILY 07/23/19 Metoprolol Succinate [Toprol Xl 25 mg Tab.sr] 25 mg PO Q12 07/23/19 Mirabegron [Myrbetriq] 25 mg PO DAILY 07/23/19 Montelukast Sodium [Singulair 10 mg Tablet] 10 mg PO QHS 07/23/19 Nitroglycerin [Nitro-Dur 5 mg (0.2 mg/Hr) Transdermal Patch] 1 each TD DAILY 07/23/19 Olopatadine HCl [Patanol 0.1% Oph Soln 5 Ml Bottle] 1 drop OU BID 07/23/19 Omeprazole 20 mg PO DAILY 07/23/19 Ranitidine HCl [Zantac] 300 mg PO DAILY 07/23/19 Thiamine Mononitrate [Vitamin B-1] 100 mg PO DAILY 07/23/19 Allergies/Adverse Reactions: latex [Latex] Allergy (Intermediate, Verified 05/14/19 18:58) ITCHING levofloxacin [From Levaquin] Allergy (Unknown, Verified 05/14/19 18:58) saccharin Allergy (Verified 05/14/19 18:58) Penicillins Adverse Reaction (Mild, Verified 05/14/19 18:58) Yeast infections ibuprofen [From Motrin] Adverse Reaction (Verified 05/14/19 18:58) Review of Systems Constitutional: ABSENT: chills, fever(s), headache(s), weight gain, weight loss Eyes: ABSENT: visual disturbances Ears: ABSENT: hearing changes Cardiovascular: PRESENT: dyspnea on exertion. ABSENT: chest pain, edema, orthropnea, palpitations Respiratory: ABSENT: cough, hemoptysis Gastrointestinal: ABSENT: abdominal pain, constipation, diarrhea, hematemesis, hematochezia, nausea, vomiting Genitourinary: ABSENT: dysuria, hematuria Musculoskeletal: ABSENT: joint swelling Integumentary: ABSENT: rash, wounds Neurological: ABSENT: abnormal gait, abnormal speech, confusion, dizziness, focal weakness, syncope Psychiatric: ABSENT: anxiety, depression, homidical ideation, suicidal ideation Endocrine: ABSENT: cold intolerance, heat intolerance, menstrual abnormalities, polydipsia, polyuria Hematologic/Lymphatic: ABSENT: easy bleeding, easy bruising, lymphadenopathy Physical Exam Vital Signs: Temp Pulse Resp BP Pulse Ox 27 H 152/93 H 90 L 07/23/19 15:06 07/23/19 14:01 07/23/19 14:01 Intake & Output 07/22/19 07/23/19 07/24/19 06:59 06:59 06:59 Weight 49.895 kg General appearance: PRESENT: no acute distress, well-developed, well-nourished Head exam: PRESENT: atraumatic, normocephalic Eye exam: PRESENT: conjunctiva pink, EOMI, PERRLA. ABSENT: scleral icterus Ear exam: PRESENT: normal external ear exam Mouth exam: PRESENT: moist, tongue midline Neck exam: PRESENT: full ROM. ABSENT: carotid bruit, JVD, lymphadenopathy, th yromegaly Respiratory exam: PRESENT: decreased breath sounds Cardiovascular exam: PRESENT: RRR. ABSENT: diastolic murmur, rubs, systolic murmur Pulses: PRESENT: normal dorsalis pedis pul, +2 pedal pulses bilateral Vascular exam: PRESENT: normal capillary refill GI/Abdominal exam: PRESENT: normal bowel sounds, soft. ABSENT: distended, guarding, mass, organolmegaly, rebound, tenderness Rectal exam: PRESENT: deferred Neurological exam: PRESENT: alert, awake, oriented to person, oriented to place, oriented to time, oriented to situation, CN II-XII grossly intact. ABSENT: motor sensory deficit Psychiatric exam: PRESENT: appropriate affect, normal mood. ABSENT: homicidal ideation, suicidal ideation Skin exam: PRESENT: dry, intact, warm. ABSENT: cyanosis, rash Results Laboratory Results: 07/23/19 11:45 07/23/19 11:45 07/23/19 07/23/19 07/23/19 11:45 11:45 11:45 WBC 5.9 RBC 5.26 Hgb 15.0 Hct 44.5 MCV 85 MCH 28.4 MCHC 33.6 RDW 14.9 H Plt Count 181 Seg Neutrophils % 65.2 VBG pH VBG pCO2 VBG HCO3 VBG Base Excess Sodium 139.2 Potassium 4.5 Chloride 101 Carbon Dioxide 30 Anion Gap 8 BUN 16 Creatinine 0.67 Est GFR ( Amer) > 60 Glucose 106 Lactic Acid 1.3 Calcium 10.3 H Total Bilirubin 0.7 AST 25 Alkaline Phosphatase 72 Total Protein 7.6 Albumin 4.6 Urine Color Urine Appearance Urine pH Ur Specific [place] Urine Protein Urine Glucose (UA) Urine Ketones Urine Blood Urine Nitrite Ur Leukocyte Esterase Urine WBC (Auto) Urine RBC (Auto) 07/23/19 07/23/19 11:45 12:15 WBC RBC Hgb Hct MCV MCH MCHC RDW Plt Count Seg Neutrophils % VBG pH 7.37 VBG pCO2 49.9 VBG HCO3 28.0 VBG Base Excess 1.7 Sodium Potassium Chloride Carbon Dioxide Anion Gap BUN Creatinine Est GFR ( Amer) Glucose Lactic Acid Calcium Total Bilirubin AST Alkaline Phosphatase Total Protein Albumin Urine Color YELLOW Urine Appearance CLEAR Urine pH 7.0 Ur Specific [place] 1.016 Urine Protein NEGATIVE Urine Glucose (UA) NEGATIVE Urine Ketones NEGATIVE Urine Blood NEGATIVE Urine Nitrite NEGATIVE Ur Leukocyte Esterase NEGATIVE Urine WBC (Auto) 1 Urine RBC (Auto) 1 07/23/19 07/23/19 11:45 11:45 Creatine Kinase 43 Troponin I < 0.012 NT-Pro-B Natriuret Pep 469 H Impressions: Chest X-Ray 07/23/19 11:34 IMPRESSION: Borderline cardiomegaly without pulmonary edema. Airspace disease in right middle and lower lobes, likely pneumonia. Chest/Abdomen CTA 07/23/19 15:03 IMPRESSION: 1 1. There is no pulmonary embolus. There is no aortic aneurysm or dissection. 2. There is a large anterior diaphragmatic hernia on the right with stool- containing large bowel above the diaphragm. Small hiatal hernia. Assessment & Plan - Diagnosis (1) Pneumonia Qualifiers: Pneumonia type: due to unspecified organism Is this a current diagnosis for this admission?: Yes Plan: Start the patient on IV antibiotic (2) Respiratory distress Is this a current diagnosis for this admission?: Yes Plan: Most likely coming from the large paraesophageal hernia with the underlying asthma exacerbationsAnd a pneumonia (3) Shortness of breath Is this a current diagnosis for this admission?: Yes Plan: See above (4) Asthma exacerbation Qualifiers: Asthma severity: moderate Is this a current diagnosis for this admission?: Yes Plan: Continue some nebulizer treatments in the steroid (5) Diaphragmatic hernia Qualifiers: Obstruction and gangrene presence: without obstruction or gangrene Qualified Code(s): K44.9 - Diaphragmatic hernia without obstruction or gangrene Is this a current diagnosis for this admission?: Yes Plan: Patients have several evaluations planned to the GI and pretty much conservative management we will consult the surgery (6) Hyperlipidemia Qualifiers: Hyperlipidemia type: unspecified Qualified Code(s): E78.5 - Hyperlipidemia, unspecified Is this a current diagnosis for this admission?: Yes Plan: Currently all stable (7) Hypertension Qualifiers: Hypertension type: essential hypertension Qualified Code(s): I10 - Essential (primary) hypertension Is this a current diagnosis for this admission?: Yes Plan: Continues to current medications (8) Coronary artery disease Qualifiers: Coronary Disease-Associated Artery/Lesion type: unspecified vessel or lesion type Associated angina: without angina Is this a current diagnosis for this admission?: Yes Plan: Was recently seen by Dr. YUKO dotson about any underlying heart failure we will consult him - Time Time Spent: 50 to 70 Minutes Medications reviewed and adjusted accordingly: Yes Anticipated discharge: Home with Homehealth Within: Other - Inpatient Certification Based on my medical assessment, after consideration of the patient's comorbidities, presenting symptoms, or acuity I expect that the services needed warrant INPATIENT care.: Yes I certify that my determination is in accordance with my understanding of Medicare's requirements for reasonable and necessary INPATIENT services [42 CFR 412.3e].: Yes Medical Necessity: Significant Comorbidiites Make Outpatient Treatment Too Risky, Need Close Monitoring Due to Risk of Patient Decompensation, Need for IV Antibiotics Post Hospital Care: D/C Alternative Medicine Practitioner Documentation - Plan Summary Plan Summary: Admit the patient in IMCU Since already expressed DNR/DNI Continues to current medicationsg
[2019-07-23 17:48] LABS: CREATINE KINASE MB 0.91 ng/mL (<4.55)
[2019-07-23 17:52] LABS: TROPONIN I < 0.012 ng/mL
[2019-07-23] MEDS ORDERED: (PENDING PHARMACY ID) (Fluticasone/Salmeterol 1 PUFF) IH SCH (18:00)
[2019-07-23] MEDS ORDERED: INFLUENZA QUAD (6MOS+) 2019-20 VAC 0.5 ML SYR IM ONE (19:31)
[2019-07-23] MEDS: IPRATROPIUM/ALBUTEROL 0.5-2.5 MG/3 ML AMPUL NEB SCH (20:00)
--- NOTE | 2019-07-23 20:15 | EKG REPORT ---
SEVERITY:- BORDERLINE ECG - SINUS TACHYCARDIA BORDERLINE R WAVE PROGRESSION, ANTERIOR LEADS : Confirmed by: Peg Trujillo MD 23-Jul-2019 20:14:21
[2019-07-23] MEDS: PANTOPRAZOLE SODIUM 40 MG TABLET.DR PO SCH (22:03)
[2019-07-23] MEDS: DOCUSATE SODIUM 100 MG CAPSULE PO SCH (22:04)
[2019-07-23] MEDS: OLOPATADINE HCL 0.1% OPH SOLN 5 ML OU SCH (22:04)
[2019-07-23] MEDS: MONTELUKAST SODIUM 10 MG TABLET PO SCH (22:05)
[2019-07-23] MEDS: CEFEPIME 1 GM/D5W RTU 1 GM/50 ML RTUPB IV SCH (22:05)
[2019-07-23] MEDS: ATORVASTATIN CALCIUM 20 MG TABLET PO SCH (22:05)
[2019-07-23] MEDS: METHYLPREDNISOLONE INJ 40 MG/1 ML SDV IV SCH (22:05)
[2019-07-23] MEDS: METOPROLOL SUCCINATE 25 MG TAB.SR.24H PO SCH (22:05)
[2019-07-23 22:09] LABS: CREATINE KINASE MB 1.06 ng/mL (<4.55)
[2019-07-23 22:15] LABS: TROPONIN I < 0.012 ng/mL
--- NOTE | 2019-07-24 00:27 | PDOC CONSULTATION ---
Consultation Consult Date: 07/24/19 Provider Consulted: SHERRY ALEMAN Consult reason:: right paraesophagel hernia History of Present Illness Admission Date/PCP: 07/23/19 15:58 RUBI AGUIAR MD Patient complains of: chest pain and respiratory distress History of Present Illness: BHUPINDER NARVAEZ is a 78 year old female with a history of old myocardial infarction, hypertension, hyperlipidemia, paraesophageal hernia, gastroesophageal reflux, asthma, and coronary artery disease came to the emergency department with a complaint of shortness of breath. A chest x-ray was done demonstrating a right and middle lobe middle lobe pneumonia. In addition, she underwent a CT chest angiogram which was negative for pulmonary embolism; however demonstrated her previously diagnosed right anterior paraesophageal hernia containing bowel. According to patient, she underwent laparoscopic repair of her paraesophageal hernia in the early s at [facility] because of chest pain and other chest symptoms such as asthma caused by the hernia. She became symptomatic after the operation. However about 10 to 15 years afterwards, she started complaining again of chest pain which was likely secondary to a recurrence of the anterior/right mediastinal and thoracic paraesophageal hernia. She has been seen by the bacon skinner Dr. Huber who recently performed a cardiac echo diagnosed as negative. Past Medical History Cardiac Medical History: Reports: Myocardial Infarction - nonstemi 2018, Hyperlipidema, Hypertension Denies: Congestive Heart Failure, Coronary Artery Disease, Pulmonary Embolism Pulmonary Medical History: Reports: Asthma, Bronchitis, Pneumonia Comment Only: Chronic Obstructive Pulmonary Disease (COPD) - States she has not been diagnosed with COPD Neurological Medical History: Denies: Migraine, Seizures GI Medical History: Reports: Gastroesophageal Reflux Disease, Hiatal Hernia Denies: Hepatitis Musculoskeltal Medical History: Reports: Arthritis Psychiatric Medical History: Reports: Depression - on occassion Hematology: Reports: Anemia Denies: Sickle Cell Disease Past Surgical History Past Surgical History: Reports: Appendectomy, Orthopedic Surgery, Tonsillectomy Denies: Amputation, Hysterectomy, Mastectomy, Pacemaker Social History Smoking Status: Unknown if Ever Smoked Frequency of Alcohol Use: None Hx Recreational Drug Use: No Drugs: None Hx Prescription Drug Abuse: No - Advance Directive Resuscitation Status: Do Not Resuscitate Family History Family History: Reviewed & Not Pertinent, DM, Hypertension, Malignancy Parental Family History Reviewed: No Children Family History Reviewed: No Sibling(s) Family History Reviewed.: No Medication/Allergy Home Medications: Albuterol Sulfate [Ventolin 0.083% Neb 2.5 mg/3 ml Ampul] 1 vial NEB RTQ8HP PRN 07/23/19 Albuterol Sulfate [Ventolin Hfa 8 gm Mdi (1 Mdi/ER Disp)] 2 puff IH Q4 07/23/19 Aspirin [Adult Low Dose Aspirin EC] 81 mg PO DAILY 07/23/19 Atorvastatin Calcium [Lipitor 20 mg Tablet] 20 mg PO QHS 07/23/19 Benzonatate [Tessalon Perles 100 mg Capsule] 100 mg PO Q8HP PRN 07/23/19 Fluticasone/Salmeterol [Advair 500-50 Diskus 14 Dose/Diskus] 1 puff IH BID 07/23/19 Losartan Potassium [Cozaar 100 mg Tablet] 100 mg PO DAILY 07/23/19 Metoprolol Succinate [Toprol Xl 25 mg Tab.sr] 25 mg PO Q12 07/23/19 Mirabegron [Myrbetriq] 25 mg PO DAILY 07/23/19 Montelukast Sodium [Singulair 10 mg Tablet] 10 mg PO QHS 07/23/19 Nitroglycerin [Nitro-Dur 5 mg (0.2 mg/Hr) Transdermal Patch] 1 each TD DAILY 07/23/19 Olopatadine HCl [Patanol 0.1% Oph Soln 5 Ml Bottle] 1 drop OU BID 07/23/19 Omeprazole 20 mg PO DAILY 07/23/19 Ranitidine HCl [Zantac] 300 mg PO DAILY 07/23/19 Thiamine Mononitrate [Vitamin B-1] 100 mg PO DAILY 07/23/19 Allergies/Adverse Reactions: latex [Latex] Allergy (Intermediate, Verified 05/14/19 18:58) ITCHING levofloxacin [From Levaquin] Allergy (Unknown, Verified 05/14/19 18:58) saccharin Allergy (Verified 05/14/19 18:58) Penicillins Adverse Reaction (Mild, Verified 05/14/19 18:58) Yeast infections ibuprofen [From Motrin] Adverse Reaction (Verified 05/14/19 18:58) Physical Exam Vital Signs: Temp Pulse Resp BP Pulse Ox 97.5 F 104 H 18 171/92 H 95 07/23/19 23:30 07/23/19 23:30 07/23/19 23:30 07/23/19 23:30 07/23/19 23:30 Pulse Oximeter Continuous Start: 07/23/19 17:39 Freq: RTQ4 Status: Active Protocol: Document 07/23/19 20:00 PMU (Rec: 07/23/19 20:17 PMU [id number]) Pulse Oximetry Assessment Oxygen Saturation (92-100) 94 Oxygen Flow Rate (L/min) 2 Oxygen Delivery Method Nasal Cannula Fraction of Inspired Oxygen (FIO2) 28 Equipment Usage Initial Set Up Continuous Pulse Oximeter 24 Hour Charge Charge Now Continuous SpO2 Machine # [id number] Intake & Output 07/22/19 07/23/19 07/24/19 06:59 06:59 06:59 Intake Total 50 Balance 50 Weight 59.5 kg General appearance: PRESENT: no acute distress, thin Head exam: PRESENT: atraumatic, normocephalic Eye exam: PRESENT: EOMI Mouth exam: PRESENT: moist, neck supple Teeth exam: PRESENT: poor dentation Neck exam: PRESENT: full ROM Respiratory exam: PRESENT: clear to auscultation candelario Cardiovascular exam: PRESENT: RRR Vascular exam: PRESENT: normal capillary refill GI/Abdominal exam: PRESENT: normal bowel sounds, soft Rectal exam: PRESENT: deferred Extremities exam: PRESENT: full ROM Musculoskeletal exam: PRESENT: full ROM Neurological exam: PRESENT: alert, oriented to person, oriented to place, CN II- XII grossly intact, normal gait Psychiatric exam: PRESENT: appropriate affect Skin exam: PRESENT: warm Results Laboratory Results: 07/23/19 11:45 07/23/19 16:45 07/23/19 07/23/19 07/23/19 11:45 11:45 11:45 WBC 5.9 RBC 5.26 Hgb 15.0 Hct 44.5 MCV 85 MCH 28.4 MCHC 33.6 RDW 14.9 H Plt Count 181 Seg Neutrophils % 65.2 VBG pH VBG pCO2 VBG HCO3 VBG Base Excess Sodium 139.2 Potassium 4.5 Chloride 101 Carbon Dioxide 30 Anion Gap 8 BUN 16 Creatinine 0.67 Est GFR ( Amer) > 60 Glucose 106 Lactic Acid 1.3 Calcium 10.3 H Total Bilirubin 0.7 AST 25 Alkaline Phosphatase 72 Total Protein 7.6 Albumin 4.6 Urine Color Urine Appearance Urine pH Ur Specific [place] Urine Protein Urine Glucose (UA) Urine Ketones Urine Blood Urine Nitrite Ur Leukocyte Esterase Urine WBC (Auto) Urine RBC (Auto) 07/23/19 07/23/19 07/23/19 11:45 12:15 16:45 WBC RBC Hgb Hct MCV MCH MCHC RDW Plt Count Seg Neutrophils % VBG pH 7.37 VBG pCO2 49.9 VBG HCO3 28.0 VBG Base Excess 1.7 Sodium 140.5 Potassium 4.0 Chloride 102 Carbon Dioxide 26 Anion Gap 13 BUN 16 Creatinine 0.67 Est GFR ( Amer) > 60 Glucose 108 Lactic Acid Calcium 10.5 H Total Bilirubin AST Alkaline Phosphatase Total Protein Albumin Urine Color YELLOW Urine Appearance CLEAR Urine pH 7.0 Ur Specific [place] 1.016 Urine Protein NEGATIVE Urine Glucose (UA) NEGATIVE Urine Ketones NEGATIVE Urine Blood NEGATIVE Urine Nitrite NEGATIVE Ur Leukocyte Esterase NEGATIVE Urine WBC (Auto) 1 Urine RBC (Auto) 1 07/23/19 07/23/19 07/23/19 11:45 11:45 16:45 Creatine Kinase 43 46 CK-MB (CK-2) Troponin I < 0.012 NT-Pro-B Natriuret Pep 469 H 07/23/19 07/23/19 07/23/19 16:45 21:30 21:30 Creatine Kinase 49 CK-MB (CK-2) 0.91 1.06 Troponin I < 0.012 < 0.012 NT-Pro-B Natriuret Pep Impressions: Chest X-Ray 07/23/19 11:34 IMPRESSION: Borderline cardiomegaly without pulmonary edema. Airspace disease in right middle and lower lobes, likely pneumonia. Chest/Abdomen CTA 07/23/19 15:03 IMPRESSION: 1 1. There is no pulmonary embolus. There is no aortic aneurysm or dissection. 2. There is a large anterior diaphragmatic hernia on the right with stool- containing large bowel above the diaphragm. Small hiatal hernia. Assessment & Plan - Diagnosis (1) Paraesophageal hiatal hernia Is this a current diagnosis for this admission?: Yes (2) Gastroesophageal reflux Qualifiers: Esophagitis presence: without esophagitis Qualified Code(s): K21.9 - Gastro-esophageal reflux disease without esophagitis Is this a current diagnosis for this admission?: Yes (3) Hyperlipidemia Qualifiers: Hyperlipidemia type: other hyperlipidemia Is this a current diagnosis for this admission?: Yes (4) Pneumonia Qualifiers: Pneumonia type: due to unspecified organism Laterality: right Lung location: lower lobe of lung Is this a current diagnosis for this admission?: Yes - Plan Summary Plan Summary: Assessment: Patient currently affected by right bilobar (middle and lower lobe) pneumonia History of right anterior mediastinal and right thoracic paraesophageal hernia containing loops of bowel, not strangulated History of asthma, chest pain, GERD Status post laparoscopic repair of paraesophageal hernia in the early s at [facility] Past no history significant for myocardial infarction Recent cardiac echo revealing a normal cardiac ejection fraction as per Dr. Huber Status post EGD done during the past year to year and half, results not available in the chart Plan: Patient to undergo additional work-up for her traumatic paraesophageal hernia Should be repaired with plan, the patient showed become clear from her pneumonia. We will discuss the above findings with Dr. Wheat
[2019-07-24] MEDS: GUAIFENESIN 600 MG TABLET.SA PO SCH ×2 (00:50→11:14)
[2019-07-24] MEDS: ACETAMINOPHEN 325 MG TABLET PO PRN ×2 (01:56→20:45)
[2019-07-24 05:18] LABS: ABSOLUTE LYMPHOCYTES (AUTO) 0.4 10^3/uL (0.5-4.7); ABSOLUTE MONOCYTES (AUTO) 0.1 10^3/uL (0.1-1.4); ABSOLUTE NEUT (AUTO) 4.9 10^3/uL (1.7-8.2); BASOPHILS % (AUTO) 0.2 % (0-2); HEMATOCRIT 41.3 % (36.0-47.0); LYMPHOCYTES % (AUTO) 7.3 % (13-45); MEAN CORPUSCULAR HEMOGLOBIN 28.6 pg (27.0-33.4); MEAN CORPUSCULAR VOLUME 84 fl (80-97); MONOCYTES % (AUTO) 1.1 % (3-13); PLATELET COUNT 186 10^3/uL (150-450); RED CELL DISTRIBUTION WIDTH 14.6 % (11.5-14.0); SEGMENTED NEUTROPHILS % (AUTO) 91.4 % (42-78); TOTAL CELLS COUNTED % (AUTO) 100 %; WHITE BLOOD COUNT 5.3 10^3/uL (4.0-10.5)
[2019-07-24] MEDS: METHYLPREDNISOLONE INJ 40 MG/1 ML SDV IV SCH (05:33)
[2019-07-24] MEDS: PANTOPRAZOLE SODIUM 40 MG TABLET.DR PO SCH ×2 (05:33→17:04)
[2019-07-24 05:48] LABS: CREATINE KINASE MB 1.46 ng/mL (<4.55)
[2019-07-24 05:49] LABS: TROPONIN I < 0.012 ng/mL
[2019-07-24] MEDS: IPRATROPIUM/ALBUTEROL 0.5-2.5 MG/3 ML AMPUL NEB SCH ×3 (08:14→19:42)
[2019-07-24] MEDS ORDERED: OXYBUTYNIN CHLORIDE 5 MG TABLET PO SCH (08:30)
--- NOTE | 2019-07-24 09:18 | PDOC PROGRESS REPORT ---
Subjective Progress Note for:: 07/24/19 Subjective:: Patient is currently doing well Patient's denied any chest pain to than any shortness of the breath Is feeling much better Seen by the surgery and is going to talk to Dr. Bhagat regarding the repair for diaphragmatic hernia with possible here Patient's other than that denied any other symptoms patient is walking the hallway without any problems Reason For Visit: RESPIRATORY DISTRESS PNEUMONIA Physical Exam Vital Signs: Temp Pulse Resp BP Pulse Ox 97.7 F 88 16 148/80 H 93 07/24/19 03:13 07/24/19 08:15 07/24/19 08:15 07/24/19 03:13 07/24/19 08:15 Pulse Oximeter Continuous Start: 07/23/19 17:39 Freq: RTQ4 Status: Active Protocol: Document 07/24/19 08:15 [facility] [place], [place] (Rec: 07/24/19 08:36 [facility] [place] [place] [id number]) Pulse Oximetry Assessment Oxygen Saturation (92-100) 93 Oxygen Delivery Method Room Air Fraction of Inspired Oxygen (FIO2) 21 Equipment Usage Equipment in Use Continuous SpO2 Machine # [id number] Intake & Output 07/23/19 07/24/19 07/25/19 06:59 06:59 06:59 Intake Total 50 Balance 50 Weight 60.3 kg General appearance: PRESENT: no acute distress, well-developed, well-nourished Head exam: PRESENT: atraumatic, normocephalic Eye exam: PRESENT: conjunctiva pink, EOMI, PERRLA. ABSENT: scleral icterus Ear exam: PRESENT: normal external ear exam Mouth exam: PRESENT: moist, tongue midline Neck exam: PRESENT: full ROM. ABSENT: carotid bruit, JVD, lymphadenopathy, thyromegaly Respiratory exam: PRESENT: clear to auscultation candelario Cardiovascular exam: PRESENT: RRR. ABSENT: diastolic murmur, rubs, systolic murmur Pulses: PRESENT: normal dorsalis pedis pul, +2 pedal pulses bilateral Vascular exam: PRESENT: normal capillary refill GI/Abdominal exam: PRESENT: normal bowel sounds, soft. ABSENT: distended, guarding, mass, organolmegaly, rebound, tenderness Rectal exam: PRESENT: deferred Musculoskeletal exam: PRESENT: ambulatory Neurological exam: PRESENT: alert, awake, oriented to person, oriented to place, oriented to time, oriented to situation, CN II-XII grossly intact. ABSENT: motor sensory deficit Psychiatric exam: PRESENT: appropriate affect, normal mood. ABSENT: homicidal ideation, suicidal ideation Skin exam: PRESENT: dry, intact, warm. ABSENT: cyanosis, rash Results Laboratory Results: 07/24/19 04:33 07/23/19 16:45 07/23/19 07/23/19 07/23/19 11:45 11:45 11:45 WBC 5.9 RBC 5.26 Hgb 15.0 Hct 44.5 MCV 85 MCH 28.4 MCHC 33.6 RDW 14.9 H Plt Count 181 Seg Neutrophils % 65.2 VBG pH VBG pCO2 VBG HCO3 VBG Base Excess Sodium 139.2 Potassium 4.5 Chloride 101 Carbon Dioxide 30 Anion Gap 8 BUN 16 Creatinine 0.67 Est GFR ( Amer) > 60 Glucose 106 Lactic Acid 1.3 Calcium 10.3 H Total Bilirubin 0.7 AST 25 Alkaline Phosphatase 72 Total Protein 7.6 Albumin 4.6 Urine Color Urine Appearance Urine pH Ur Specific [place] Urine Protein Urine Glucose (UA) Urine Ketones Urine Blood Urine Nitrite Ur Leukocyte Esterase Urine WBC (Auto) Urine RBC (Auto) 07/23/19 07/23/19 07/23/19 11:45 12:15 16:45 WBC RBC Hgb Hct MCV MCH MCHC RDW Plt Count Seg Neutrophils % VBG pH 7.37 VBG pCO2 49.9 VBG HCO3 28.0 VBG Base Excess 1.7 Sodium 140.5 Potassium 4.0 Chloride 102 Carbon Dioxide 26 Anion Gap 13 BUN 16 Creatinine 0.67 Est GFR ( Amer) > 60 Glucose 108 Lactic Acid Calcium 10.5 H Total Bilirubin AST Alkaline Phosphatase Total Protein Albumin Urine Color YELLOW Urine Appearance CLEAR Urine pH 7.0 Ur Specific [place] 1.016 Urine Protein NEGATIVE Urine Glucose (UA) NEGATIVE Urine Ketones NEGATIVE Urine Blood NEGATIVE Urine Nitrite NEGATIVE Ur Leukocyte Esterase NEGATIVE Urine WBC (Auto) 1 Urine RBC (Auto) 1 07/24/19 04:33 WBC 5.3 RBC 4.90 Hgb 14.0 Hct 41.3 MCV 84 MCH 28.6 MCHC 34.0 RDW 14.6 H Plt Count 186 Seg Neutrophils % 91.4 H VBG pH VBG pCO2 VBG HCO3 VBG Base Excess Sodium Potassium Chloride Carbon Dioxide Anion Gap BUN Creatinine Est GFR ( Amer) Glucose Lactic Acid Calcium Total Bilirubin AST Alkaline Phosphatase Total Protein Albumin Urine Color Urine Appearance Urine pH Ur Specific [place] Urine Protein Urine Glucose (UA) Urine Ketones Urine Blood Urine Nitrite Ur Leukocyte Esterase Urine WBC (Auto) Urine RBC (Auto) 07/23/19 07/23/19 07/23/19 11:45 11:45 16:45 Creatine Kinase 43 46 CK-MB (CK-2) Troponin I < 0.012 NT-Pro-B Natriuret Pep 469 H 07/23/19 07/23/19 07/23/19 16:45 21:30 21:30 Creatine Kinase 49 CK-MB (CK-2) 0.91 1.06 Troponin I < 0.012 < 0.012 NT-Pro-B Natriuret Pep 07/24/19 07/24/19 04:33 04:33 Creatine Kinase 68 CK-MB (CK-2) 1.46 Troponin I < 0.012 NT-Pro-B Natriuret Pep Impressions: Chest X-Ray 07/23/19 11:34 IMPRESSION: Borderline cardiomegaly without pulmonary edema. Airspace disease in right middle and lower lobes, likely pneumonia. Chest/Abdomen CTA 07/23/19 15:03 IMPRESSION: 1 1. There is no pulmonary embolus. There is no aortic aneurysm or dissection. 2. There is a large anterior diaphragmatic hernia on the right with stool- containing large bowel above the diaphragm. Small hiatal hernia. Assessment & Plan - Diagnosis (1) Pneumonia Qualifiers: Pneumonia type: due to unspecified organism Is this a current diagnosis for this admission?: Yes Plan: Start the patient on IV antibiotic (2) Respiratory distress Is this a current diagnosis for this admission?: Yes Plan: Currently all stable and resolved (3) Shortness of breath Is this a current diagnosis for this admission?: Yes Plan: See above (4) Asthma exacerbation Qualifiers: Asthma severity: moderate Is this a current diagnosis for this admission?: Yes Plan: Patient is currently doing well discontinues to IV steroid and put on a p.o. steroids (5) Diaphragmatic hernia Qualifiers: Obstruction and gangrene presence: without obstruction or gangrene Qualified Code(s): K44.9 - Diaphragmatic hernia without obstruction or gangrene Is this a current diagnosis for this admission?: Yes Plan: Follow with the surgery (6) Hyperlipidemia Qualifiers: Hyperlipidemia type: unspecified Qualified Code(s): E78.5 - Hyperlipidemia, unspecified Is this a current diagnosis for this admission?: Yes Plan: Currently all stable (7) Hypertension Qualifiers: Hypertension type: essential hypertension Qualified Code(s): I10 - Essential (primary) hypertension Is this a current diagnosis for this admission?: Yes Plan: Continues to current medications (8) Coronary artery disease Qualifiers: Coronary Disease-Associated Artery/Lesion type: unspecified vessel or lesion type Associated angina: without angina Is this a current diagnosis for this admission?: Yes Plan: Was recently seen by Dr. YUKO dotson about any underlying heart failure we will consult him - Time Time Spent with patient: 15-24 minutes Level of Care: IMCU Medications reviewed and adjusted accordingly: Yes Anticipated discharge: Home with Homehealth Within: Other - Plan Summary Plan Summary: Continues to IV antibiotic Continues to nebulizer pI Is going to stay in a week and
[2019-07-24] MEDS ORDERED: (PENDING PHARMACY ID) (Ranitidine Hcl [Zantac] 300 MG) PO SCH (10:00)
[2019-07-24] MEDS ORDERED: (PENDING PHARMACY ID) (Thiamine Mononitrate [Vitamin B-1] 100 MG) PO SCH (10:00)
[2019-07-24] MEDS: CEFTRIAXONE 1 GM/D5W RTU 1 GM/50 ML RTUPB IV SCH (10:05)
--- NOTE | 2019-07-24 10:19 | Progress Note ---
Provider Note Provider Note: spoke [facility] Dr Bai this am pt has large recurrent diaphramatic hernia causing intermittent admissions for sob due to asthma or pneumonia pt has previous repair at [facility] in the recommend, pt is candidate for repair, here at [facility], after current rx of her pneumonia Dr Bai will notify nurses to make pt an appoint iwth me upon her discharge.
[2019-07-24] MEDS: OXYBUTYNIN CHLORIDE 5 MG TABLET PO SCH ×2 (11:10→21:00)
[2019-07-24] MEDS: DOCUSATE SODIUM 100 MG CAPSULE PO SCH ×2 (11:10→17:04)
[2019-07-24] MEDS: AZITHROMYCIN 250 MG TABLET PO SCH (11:11)
[2019-07-24] MEDS: ASPIRIN 81 MG TABLET, ENT COATED PO SCH (11:12)
[2019-07-24] MEDS: METOPROLOL SUCCINATE 25 MG TAB.SR.24H PO SCH ×2 (11:12→21:01)
[2019-07-24] MEDS: FAMOTIDINE 20 MG TABLET PO SCH (11:13)
[2019-07-24] MEDS: LOSARTAN POTASSIUM 50 MG TABLET PO SCH (11:13)
[2019-07-24] MEDS: PANTOPRAZOLE SODIUM 20 MG TABLET.DR PO SCH (11:14)
[2019-07-24] MEDS: PREDNISONE 10 MG TABLET PO SCH ×2 (11:14→17:03)
[2019-07-24] MEDS: CEFEPIME 1 GM/D5W RTU 1 GM/50 ML RTUPB IV SCH ×2 (11:15→21:00)
[2019-07-24] MEDS: POLYETHYLENE GLYCOL 3350 POWDER 17 GM/1 PACKET PO SCH (11:15)
[2019-07-24] MEDS: NITROGLYCERIN 5 MG (0.2 MG/HR) PATCH.TD24 TD SCH (11:15)
[2019-07-24] MEDS: THIAMINE HCL 100 MG TABLET PO SCH (11:15)
[2019-07-24] MEDS: FLUTICASONE/VILANTEROL 200-25 MCG/DOSE IH SCH (11:17)
[2019-07-24] MEDS: ENOXAPARIN SODIUM INJ 40 MG/0.4 ML DISP.SYRIN SUBCUT SCH (11:19)
[2019-07-24] MEDS: OLOPATADINE HCL 0.1% OPH SOLN 5 ML OU SCH ×2 (11:20→17:29)
[2019-07-24] MEDS: NYSTATIN CREAM 15 GM TP SCH ×3 (11:31→18:47)
--- NOTE | 2019-07-24 20:40 | PDOC CONSULTATION ---
Consultation-Blank Consultation: CARDIOLOGY consultation by Dr. Peg Trujillo on 07/24/2019. Patient seen at 2 PM. 60 minutes spent on this patient with more than 50% of time spent in direct patient care. REASON FOR CONSULTATION: Coronary artery disease and congestive heart failure. Also preoperative cardiac risk assessment in this patient for hiatal hernia/diaphragmatic hernia surgery. CONSULT REQUESTING PHYSICIAN: Dr. Russell Bai HISTORY PRESENT ILLNESS: Patient is a 78-year-old female who was admitted with shortness of breath and cough without any production of sputum. The patient denies PND but she does have orthopnea. She denies any chest pain or palpitations. There is no leg edema. Of note the patient's chest x-ray shows pneumonia, and also the CT scan shows a large paraesophageal hiatal hernia with intrasinus in the chest. This also could cause compression of the lungs causing shortness of breath and the patient was a history of asthma. She also has a history of hypertension hyperlipidemia. She has a past history of coronary artery disease, and had a non-ST elevation [place] in 2017. At that time she had an abnormal stress test in all match. She refused cardiac catheterization. Subsequently the patient recently in the office had a IV Lexiscan Cardiolite stress test which failed to show any ischemia or myocardial infarction/scar. Her echocardiogram showed that her LV function is normal. At present there is no clinical symptoms suggestive of heart failure. Past Medical History Cardiac Medical History: Reports:She has a known history of coronary artery disease prior history of non-ST elevation [place], and abnormal stress test who refused cardiac catheterization admitted with chest pain. Myocardial Infarction - nonstemi 2017.with the patient's recent stress test in May 2019 showed no evidence of ischemia or myocardial infarction/scar. Her echo showed normal LV ejection fraction with no wall motion of normality. She has mild to moderate mitral regurgitation by echocardiographic. Hyperlipidema, Hypertension Pulmonary Medical History: Reports: Asthma, Bronchitis, Pneumonia Comment Only: Chronic Obstructive Pulmonary Disease (COPD) - States she has not been diagnosed with COPD EENT Medical History: Reports: None Neurological Medical History: Reports: None Endocrine Medical History: Reports: None Renal/ Medical History: Reports: None Malignancy Medical History: Reports: None GI Medical History: Reports: Gastroesophageal Reflux Disease, Hiatal Hernia Musculoskeltal Medical History: Reports: Arthritis Skin Medical History: Reports: None Psychiatric Medical History: Reports: Depression - on occassion Traumatic Medical History: Reports: None Hematology: Reports: Anemia Denies: Sickle Cell Disease Infectious Medical History: Reports: None Past Surgical History Past Surgical History: Reports: Appendectomy, Orthopedic Surgery, Tonsillectomy Social History Lives with: Alone Smoking Status: Never Smoker Frequency of Alcohol Use: Occasional Hx Recreational Drug Use: No Drugs: None Hx Prescription Drug Abuse: No Family History Family History: Reviewed & Not Pertinent, DM, Hypertension, Malignancy Parental Family History Reviewed: Yes Children Family History Reviewed: Yes Sibling(s) Family History Reviewed.: Yes. Albuterol Sulfate [Ventolin 0.083% Neb 2.5 mg/3 ml Ampul] 1 vial NEB [id number] PRN 07/23/19 Albuterol Sulfate [Ventolin Hfa 8 gm Mdi (1 Mdi/ER Disp)] 2 puff IH Q4 07/23/19 Aspirin [Adult Low Dose Aspirin EC] 81 mg PO DAILY 07/23/19 Atorvastatin Calcium [Lipitor 20 mg Tablet] 20 mg PO QHS 07/23/19 Benzonatate [Tessalon Perles 100 mg Capsule] 100 mg PO Q8HP PRN 07/23/19 Fluticasone/Salmeterol [Advair 500-50 Diskus 14 Dose/Diskus] 1 puff IH BID 07/23/19 Losartan Potassium [Cozaar 100 mg Tablet] 100 mg PO DAILY 07/23/19 Metoprolol Succinate [Toprol Xl 25 mg Tab.sr] 25 mg PO Q12 07/23/19 Mirabegron [Myrbetriq] 25 mg PO DAILY 07/23/19 Montelukast Sodium [Singulair 10 mg Tablet] 10 mg PO QHS 07/23/19 Nitroglycerin [Nitro-Dur 5 mg (0.2 mg/Hr) Transdermal Patch] 1 each TD DAILY 07/23/19 Olopatadine HCl [Patanol 0.1% Oph Soln 5 Ml Bottle] 1 drop OU BID 07/23/19 Omeprazole 20 mg PO DAILY 07/23/19 Ranitidine HCl [Zantac] 300 mg PO DAILY 07/23/19 Thiamine Mononitrate [Vitamin B-1] 100 mg PO DAILY 07/23/19 RESUSCITATION STATUS: The patient is a DNR. The patient's daughter is her surrogate healthcare decision maker. Allergies/Adverse Reactions: latex ,levofloxacin ,Penicillins ,ibuprofen. Current Medications Acetaminophen (Tylenol 325 Mg Tablet) 650 mg PO Q4HP PRN PRN Reason: FOR PAIN OR TEMP Stop: 08/22/19 15:21 Last Admin: 07/24/19 01:56 Dose: 650 mg Documented by: Al Hydrox/Mg Hydrox/Simethicone (Maalox Plus Susp 30 Udcup) 15 ml PO Q6HP PRN PRN Reason: HEARTBURN Stop: 08/22/19 15:21 Albuterol/Ipratropium (Duoneb 3 Ml Ampul) 3 ml NEB [id number] [facility] Stop: 08/22/19 19:59 Last Admin: 07/24/19 19:42 Dose: 3 ml Documented by: Aspirin (Ecotrin 81 Mg Ec Tablet) 81 mg PO DAILY [facility] Stop: 08/23/19 09:59 Last Admin: 07/24/19 11:12 Dose: 81 mg Documented by: Atorvastatin Calcium (Lipitor 20 Mg Tablet) 20 mg PO QHS [facility] Stop: 08/22/19 21:59 Last Admin: 07/23/19 22:05 Dose: 20 mg Documented by: Azithromycin (Zithromax 250 Mg Tablet) 500 mg PO DAILY [facility] Stop: 07/31/19 09:59 Last Admin: 07/24/19 11:11 Dose: 250 mg Documented by: Benzonatate (Tessalon Perles 100 Mg Capsule) 100 mg PO Q8HP PRN PRN Reason: COUGH Stop: 08/22/19 16:46 Cetirizine HCl (Zyrtec 10 Mg Tablet) 10 mg PO QHS TAMMY Stop: 08/23/19 21:59 Docusate Sodium (Colace 100 Mg Capsule) 100 mg PO BID T[facility] Stop: 08/22/19 17:59 Last Admin: 07/24/19 17:04 Dose: 100 mg Documented by: Enoxaparin Sodium (Lovenox Inj 40 Mg/0.4 Ml Disp.Syrin) 40 mg SUBCUT DAILY [facility] Stop: 08/23/19 09:59 Last Admin: 07/24/19 11:19 Dose: 40 mg Documented by: Famotidine (Pepcid 20 Mg Tablet) 40 mg PO DAILY [facility] Stop: 08/23/19 09:59 Last Admin: 07/24/19 11:13 Dose: 40 mg Documented by: Fluticasone/Vilanterol (Breo 200-25 Mcg Ellipta 14 Dose/Dpi) 1 inh IH DAILY [facility] Stop: 08/23/19 09:59 Last Admin: 07/24/19 11:17 Dose: 1 puff Documented by: Guaifenesin (Mucinex Sr 600 Mg Tablet.Sa) 600 mg PO BID [facility] Stop: 08/23/19 09:59 Last Admin: 07/24/19 11:14 Dose: 600 mg Documented by: Ceftriaxone Sodium/Dextrose (Rocephin Rtu 1 Gm/D5w 50 Ml Premix) 1 gm in 50 mls @ 100 mls/hr IV DAILY [facility] Stop: 07/30/19 13:59 Last Admin: 07/24/19 10:05 Dose: 100 mls/hr Documented by: Cefepime HCl (Maxipime Rtu 1 Gm/D5w 50 Ml Premix Bag) 1 gm in 50 mls @ 100 mls/hr IV Q12 [facility] Stop: 07/30/19 21:59 Last Admin: 07/24/19 11:15 Dose: 100 mls/hr, 100 mls/hr Documented by: Losartan Potassium (Cozaar 50 Mg Tablet) 100 mg PO DAILY [facility] Stop: 08/23/19 09:59 Last Admin: 07/24/19 11:13 Dose: 100 mg Documented by: Metoprolol Succinate (Toprol Xl 25 Mg Tab.Sr) 25 mg PO Q12 [facility] Stop: 08/22/19 21:59 Last Admin: 07/24/19 11:12 Dose: 25 mg Documented by: Montelukast Sodium (Singulair 10 Mg Tablet) 10 mg PO QHS [facility] Stop: 08/22/19 21:59 Last Admin: 07/23/19 22:05 Dose: 10 mg Documented by: Nitroglycerin (Nitro-Dur 5 Mg (0.2 Mg/Hr) Transdermal Patch) 1 each TD DAILY [facility] Stop: 08/23/19 09:59 Last Admin: 07/24/19 11:15 Dose: 1 each Documented by: Nystatin (Mycostatin Cream 15 Gm) 1 applic TP TID [facility] Stop: 07/31/19 10:59 Last Admin: 07/24/19 17:15 Dose: 1 film Documented by: Olopatadine HCl (Patanol 0.1% Oph Soln 5 Ml) 1 drop OU BID [facility] Stop: 08/22/19 17:59 Last Admin: 07/24/19 17:29 Dose: 1 drop Documented by: Ondansetron HCl (Zofran Inj/Pf 4 Mg/2 Ml Sdv) 4 mg IV Q4HP PRN PRN Reason: FOR NAUSEA/VOMITING Stop: 08/22/19 15:21 Oxybutynin Chloride (Ditropan 5 Mg Tablet) 2.5 mg PO Q12 [facility] Stop: 08/23/19 09:59 Last Admin: 07/24/19 11:10 Dose: 2.5 mg Documented by: Pantoprazole Sodium (Protonix [address] Tablet) 40 mg PO BID@0600,1700 [facility] Stop: 08/22/19 16:59 Last Admin: 07/24/19 17:04 Dose: 40 mg Documented by: Pantoprazole Sodium (Protonix [address] Tablet) 20 mg PO DAILY [facility] Stop: 08/23/19 09:59 Last Admin: 07/24/19 11:14 Dose: 20 mg Documented by: Polyethylene Glycol (Miralax Powder 17 Gm/Packet) 17 gm PO DAILY [facility] Stop: 08/23/19 09:59 Last Admin: 07/24/19 11:15 Dose: 17 gm Documented by: Prednisone (Deltasone 10 Mg Tablet) 10 mg PO BID [facility] Stop: 08/23/19 09:59 Last Admin: 07/24/19 17:03 Dose: 10 mg Documented by: Thiamine HCl (Thiamine 100 Mg Tablet) 100 mg PO DAILY [facility] Stop: 08/23/19 09:59 Last Admin: 07/24/19 11:15 Dose: 100 mg Documented by: Discontinued Medications Albuterol/Ipratropium (Duoneb 3 Ml Ampul) 3 ml NEB NOW ONE Stop: 07/23/19 13:57 Last Admin: 07/23/19 14:11 Dose: 3 ml Documented by: Furosemide (Lasix Inj/Pf 40 Mg/4 Ml Sdv) 40 mg IV NOW ONE Stop: 07/23/19 13:55 Last Admin: 07/23/19 14:11 Dose: 40 mg Documented by: Levofloxacin/Dextrose (Levaquin Rtu 750 Mg/D5w 150 Ml Premix) 750 mg in 150 mls @ 100 mls/hr IV NOW ONE Stop: 07/23/19 15:12 Last Admin: 07/23/19 15:08 Dose: 100 mls/hr Documented by: Influenza Virus Vaccine Quadrival (Flulaval Quad Vac 0.5 Ml Syr) 0.5 ml IM .ONCE ONE Stop: 07/23/19 19:32 Last Admin: 07/24/19 11:18 Dose: Not Given Documented by: Methylprednisolone Sodium Succinate (Solu-Medrol Inj/Pf 125 Mg/2 Ml Sdv) 125 mg IV NOW ONE Stop: 07/23/19 14:58 Last Admin: 07/23/19 15:43 Dose: 125 mg Documented by: Methylprednisolone Sodium Succinate (Solu-Medrol Inj/Pf 40 Mg/1 Ml Sdv) 40 mg IV Q8 [facility] Stop: 08/22/19 21:59 Last Admin: 07/24/19 05:33 Dose: 40 mg Documented by: Oxybutynin Chloride (Ditropan 5 Mg Tablet) 5 mg PO DAILY [facility] Stop: 08/23/19 08:29 REVIEW OF SYSTEMS: Constitutional: ABSENT: chills, fever(s), headache(s), weight gain, weight loss Eyes: ABSENT: visual disturbances Ears: ABSENT: hearing changes Cardiovascular: ABSENT: chest pain, dyspnea on exertion, edema, orthropnea, palpitations Respiratory: PRESENT: cough, dyspnea Gastrointestinal: ABSENT: abdominal pain, constipation, diarrhea, hematemesis, hematochezia, nausea, vomiting Genitourinary: ABSENT: dysuria, hematuria Musculoskeletal: ABSENT: joint swelling Integumentary: ABSENT: rash, wounds Neurological: ABSENT: abnormal gait, abnormal speech, confusion, dizziness, focal weakness, syncope Psychiatric: ABSENT: anxiety, depression, homidical ideation, suicidal ideation Endocrine: ABSENT: cold intolerance, heat intolerance, menstrual abnormalities, polydipsia, polyuria Hematologic/Lymphatic: ABSENT: easy bleeding, easy bruising, lymphadenopathy PHYSICAL EXAMINATION: The patient is a frail build and appears to be chronically ill. At present she has no chest pain and no shortness breath . 07/24/19 07/24/19 14:09 15:38 Temperature 97.6 F Temperature Oral Source Pulse Rate 76 Respiratory 16 23 H Rate Respiratory Normal Depth Respiratory Normal Pattern Respiratory Normal Effort Non-Labored Blood Pressure 130/72 H Blood Pressure 91 Mean BP Location Left Arm BP Position Sitting O2 Sat by Pulse 96 Oximetry Oxygen Flow 2.00 Rate Oxygen Delivery Nasal Cannula Method Head: Is atraumatic normocephalic. EYES: Pupils equal round regular reactive light accommodation. Extraocular movements are normal. There is no conjunctival pallor. There is no scleral icterus. ENT is negative. NECK: Supple. There is no JVD. Carotids equal there is no bruits. There is no l ymphadenopathy. There is no goiter. THERE IS NO LYMPHADENOPATHY. THERE IS NO ACCESSORY MUSCLE RESPIRATION USE. Lungs: The patient has significant kyphosis. Lungs are clear to auscultation function without any rhonchi rales wheezing. There is decreased air entry and prolonged expiration. On percussion there is hyperresonance. HEART: S1-S2 is heard. There is no S3 gallop. There is no S4 gallop. There is systolic murmur left sternal border and the apex there is no rub. ABDOMEN: Soft. Nontender. There is no hepatospleno megaly. Bowel sounds well heard. EXTREMITIES: Femorals are slightly diminished. There is no femoral bruits. Leg pulses are diminished. There is no DVT or cellulitis. There is no pedal edema. There is no calf tenderness. OVERNIGHT CAREGIVER: The patient is conscious awake alert oriented x3 with no focal deficits. PSYCHIATRIC: The patient judgment insight are intact her affect is normal. EKG: Sinus rhythm. Borderline poor R wave R wave progression precordial leads, most likely secondary to lead placement. No definite evidence of ischemia or injury. Labs- Entire Visit 07/23/19 07/23/19 07/23/19 11:45 11:45 11:45 WBC 5.9 RBC 5.26 Hgb 15.0 Hct 44.5 MCV 85 MCH 28.4 MCHC 33.6 RDW 14.9 H Plt Count 181 Lymph % (Auto) 25.4 Swain % (Auto) 6.2 Eos % (Auto) 2.4 Baso % (Auto) 0.8 Absolute Neuts (auto) 3.9 Absolute Lymphs (auto) 1.5 Absolute Monos (auto) 0.4 Absolute Eos (auto) 0.1 Absolute Basos (auto) 0.0 Seg Neutrophils % 65.2 VBG pH VBG pCO2 VBG HCO3 VBG Base Excess Sodium 139.2 Potassium 4.5 Chloride 101 Carbon Dioxide 30 Anion Gap 8 BUN 16 Creatinine 0.67 Est GFR ( Amer) > 60 Est GFR (MDRD) Non-Af > 60 Glucose 106 Lactic Acid 1.3 Calcium 10.3 H Total Bilirubin 0.7 Direct Bilirubin 0.1 Neonat Total Bilirubin Not Reportable Neonat Direct Bilirubin Not Reportable Neonat Indirect Bili Not Reportable AST 25 ALT 12 Alkaline Phosphatase 72 Creatine Kinase CK-MB (CK-2) Troponin I NT-Pro-B Natriuret Pep Total Protein 7.6 Albumin 4.6 Urine Color Urine Appearance Urine pH Ur Specific [place] Urine Protein Urine Glucose (UA) Urine Ketones Urine Blood Urine Nitrite Urine Bilirubin Urine Urobilinogen Ur Leukocyte Esterase Urine WBC (Auto) Urine RBC (Auto) U Hyaline Cast (Auto) Squamous Epi Cells Auto Urine Mucus (Auto) Urine Ascorbic Acid 07/23/19 07/23/19 07/23/19 11:45 11:45 11:45 WBC RBC Hgb Hct MCV MCH MCHC RDW Plt Count Lymph % (Auto) Swain % (Auto) Eos % (Auto) Baso % (Auto) Absolute Neuts (auto) Absolute Lymphs (auto) Absolute Monos (auto) Absolute Eos (auto) Absolute Basos (auto) Seg Neutrophils % VBG pH 7.37 VBG pCO2 49.9 VBG HCO3 28.0 VBG Base Excess 1.7 Sodium Potassium Chloride Carbon Dioxide Anion Gap BUN Creatinine Est GFR ( Amer) Est GFR (MDRD) Non-Af Glucose Lactic Acid Calcium Total Bilirubin Direct Bilirubin Neonat Total Bilirubin Neonat Direct Bilirubin Neonat Indirect Bili AST ALT Alkaline Phosphatase Creatine Kinase 43 CK-MB (CK-2) Troponin I < 0.012 NT-Pro-B Natriuret Pep 469 H Total Protein Albumin Urine Color Urine Appearance Urine pH Ur Specific [place] Urine Protein Urine Glucose (UA) Urine Ketones Urine Blood Urine Nitrite Urine Bilirubin Urine Urobilinogen Ur Leukocyte Esterase Urine WBC (Auto) Urine RBC (Auto) U Hyaline Cast (Auto) Squamous Epi Cells Auto Urine Mucus (Auto) Urine Ascorbic Acid 07/23/19 07/23/19 07/23/19 12:15 16:45 16:45 WBC RBC Hgb Hct MCV MCH MCHC RDW Plt Count Lymph % (Auto) Swain % (Auto) Eos % (Auto) Baso % (Auto) Absolute Neuts (auto) Absolute Lymphs (auto) Absolute Monos (auto) Absolute Eos (auto) Absolute Basos (auto) Seg Neutrophils % VBG pH VBG pCO2 VBG HCO3 VBG Base Excess Sodium 140.5 Potassium 4.0 Chloride 102 Carbon Dioxide 26 Anion Gap 13 BUN 16 Creatinine 0.67 Est GFR ( Amer) > 60 Est GFR (MDRD) Non-Af > 60 Glucose 108 Lactic Acid Calcium 10.5 H Total Bilirubin Direct Bilirubin Neonat Total Bilirubin Neonat Direct Bilirubin Neonat Indirect Bili AST ALT Alkaline Phosphatase Creatine Kinase 46 CK-MB (CK-2) 0.91 Troponin I < 0.012 NT-Pro-B Natriuret Pep Total Protein Albumin Urine Color YELLOW Urine Appearance CLEAR Urine pH 7.0 Ur Specific [place] 1.016 Urine Protein NEGATIVE Urine Glucose (UA) NEGATIVE Urine Ketones NEGATIVE Urine Blood NEGATIVE Urine Nitrite NEGATIVE Urine Bilirubin NEGATIVE Urine Urobilinogen NEGATIVE Ur Leukocyte Esterase NEGATIVE Urine WBC (Auto) 1 Urine RBC (Auto) 1 U Hyaline Cast (Auto) 1 Squamous Epi Cells Auto 2 Urine Mucus (Auto) RARE Urine Ascorbic Acid NEGATIVE 07/23/19 07/23/19 07/24/19 21:30 21:30 04:33 WBC RBC Hgb Hct MCV MCH MCHC RDW Plt Count Lymph % (Auto) Swain % (Auto) Eos % (Auto) Baso % (Auto) Absolute Neuts (auto) Absolute Lymphs (auto) Absolute Monos (auto) Absolute Eos (auto) Absolute Basos (auto) Seg Neutrophils % VBG pH VBG pCO2 VBG HCO3 VBG Base Excess Sodium Potassium Chloride Carbon Dioxide Anion Gap BUN Creatinine Est GFR ( Amer) Est GFR (MDRD) Non-Af Glucose Lactic Acid Calcium Total Bilirubin Direct Bilirubin Neonat Total Bilirubin Neonat Direct Bilirubin Neonat Indirect Bili AST ALT Alkaline Phosphatase Creatine Kinase 49 68 CK-MB (CK-2) 1.06 Troponin I < 0.012 NT-Pro-B Natriuret Pep Total Protein Albumin Urine Color Urine Appearance Urine pH Ur Specific [place] Urine Protein Urine Glucose (UA) Urine Ketones Urine Blood Urine Nitrite Urine Bilirubin Urine Urobilinogen Ur Leukocyte Esterase Urine WBC (Auto) Urine RBC (Auto) U Hyaline Cast (Auto) Squamous Epi Cells Auto Urine Mucus (Auto) Urine Ascorbic Acid 07/24/19 07/24/19 04:33 04:33 WBC 5.3 RBC 4.90 Hgb 14.0 Hct 41.3 MCV 84 MCH 28.6 MCHC 34.0 RDW 14.6 H Plt Count 186 Lymph % (Auto) 7.3 L Swain % (Auto) 1.1 L Eos % (Auto) 0.0 Baso % (Auto) 0.2 Absolute Neuts (auto) 4.9 Absolute Lymphs (auto) 0.4 L Absolute Monos (auto) 0.1 Absolute Eos (auto) 0.0 Absolute Basos (auto) 0.0 Seg Neutrophils % 91.4 H VBG pH VBG pCO2 VBG HCO3 VBG Base Excess Sodium Potassium Chloride Carbon Dioxide Anion Gap BUN Creatinine Est GFR ( Amer) Est GFR (MDRD) Non-Af Glucose Lactic Acid Calcium Total Bilirubin Direct Bilirubin Neonat Total Bilirubin Neonat Direct Bilirubin Neonat Indirect Bili AST ALT Alkaline Phosphatase Creatine Kinase CK-MB (CK-2) 1.46 Troponin I < 0.012 NT-Pro-B Natriuret Pep Total Protein Albumin Urine Color Urine Appearance Urine pH Ur Specific [place] Urine Protein Urine Glucose (UA) Urine Ketones Urine Blood Urine Nitrite Urine Bilirubin Urine Urobilinogen Ur Leukocyte Esterase Urine WBC (Auto) Urine RBC (Auto) U Hyaline Cast (Auto) Squamous Epi Cells Auto Urine Mucus (Auto) Urine Ascorbic Acid Chest X-Ray 07/23/19 11:34 IMPRESSION: Borderline cardiomegaly without pulmonary edema. Airspace disease in right middle and lower lobes, likely pneumonia. Chest/Abdomen CTA 07/23/19 15:03 IMPRESSION: 1 1. There is no pulmonary embolus. There is no aortic aneurysm or dissection. 2. There is a large anterior diaphragmatic hernia on the right with stool- containing large bowel above the diaphragm. Small hiatal hernia. IMPRESSION/RECOMMENDATION: 1. Shortness of breath most likely secondary to patient's pneumonia and also compression effect of the paraesophageal hernia which is large on the lungs. Also patient has underlying asthma, and kyphosis. And probably has COPD no evidence of congestive heart failure. 2. PNEUMONIA: Continue antibiotics. 3. No evidence of congestive heart failure, by chest x-ray and by CT scan and by clinical exam. 4. Coronary artery disease: Most likely not very significant in view of recent IV Lexiscan Cardiolite stress test being negative. Also no wall motion of normality's on the echocardiogram. 5. Large hiatal/paraesophageal hernia: Patient symptomatic. 6. History of asthma possibly has COPD. 7. Hypertension: Blood pressure stable on current medications. Continue the same. 8. Hyperlipidemia: Continue statin. 9. Mitral regurgitation: Doubt if this is contributing to the patient's shortness of breath. There is no evidence of heart failure. 10. Preoperative cardiac risk assessment. 11. Kyphosis which seems to be quite significant. This is also a major factor in the patient's shortness of breath Recommend continue current treatment. Medications reviewed medical regimen discussed with the attending physician. In view of the patient's age if the patient's wants to undergo surgery for this hiatal hernia since she is very symptomatic, she would be at moderate cardiac risk. Would recommend monitor the patient's heart rhythm on the telemetry perioperatively and postoperatively, and also get serial EKGs and enzymes. Please call me when the patient is scheduled for surgery. We will have the patient follow-up with me in the office. Will sign off. Discussed this with Dr. Bai. Medical decision making is of high complexity. 60 minutes spent on this patient with more than 50% of time spent in direct patient care.
[2019-07-24] MEDS: ATORVASTATIN CALCIUM 20 MG TABLET PO SCH (21:01)
[2019-07-24] MEDS: MONTELUKAST SODIUM 10 MG TABLET PO SCH (21:01)
[2019-07-24] MEDS: CETIRIZINE 10 MG TABLET PO SCH (21:05)
[2019-07-24] MEDS: MAG HYDROX/AL HYDROX/SIMETH SUSP 30 ML UDCUP PO PRN (22:47)
[2019-07-24] MEDS: BENZONATATE 100 MG CAPSULE PO PRN (22:52)
[2019-07-25 05:15] LABS: ABSOLUTE LYMPHOCYTES (AUTO) 1.9 10^3/uL (0.5-4.7); ABSOLUTE MONOCYTES (AUTO) 1.1 10^3/uL (0.1-1.4); ABSOLUTE NEUT (AUTO) 16.7 10^3/uL (1.7-8.2); BASOPHILS % (AUTO) 0.1 % (0-2); HEMATOCRIT 40.7 % (36.0-47.0); HEMOGLOBIN 13.9 g/dL (12.0-15.5); LYMPHOCYTES % (AUTO) 9.6 % (13-45); MEAN CORPUSCULAR HEMOGLOBIN 28.4 pg (27.0-33.4); MEAN CORPUSCULAR HGB CONC 34.1 g/dL (32.0-36.0); MEAN CORPUSCULAR VOLUME 83 fl (80-97); MONOCYTES % (AUTO) 5.4 % (3-13); PLATELET COUNT 229 10^3/uL (150-450); RED BLOOD COUNT 4.87 10^6/uL (3.72-5.28); RED CELL DISTRIBUTION WIDTH 14.9 % (11.5-14.0); SEGMENTED NEUTROPHILS % (AUTO) 84.9 % (42-78); TOTAL CELLS COUNTED % (AUTO) 100 %
[2019-07-25 05:17] LABS: WHITE BLOOD COUNT 19.7 10^3/uL (4.0-10.5)
[2019-07-25] MEDS: PANTOPRAZOLE SODIUM 40 MG TABLET.DR PO SCH ×2 (05:19→19:44)
[2019-07-25] MEDS: IPRATROPIUM/ALBUTEROL 0.5-2.5 MG/3 ML AMPUL NEB SCH ×3 (07:51→19:28)
[2019-07-25] MEDS: FAMOTIDINE 20 MG TABLET PO SCH (10:00)
[2019-07-25] MEDS: LOSARTAN POTASSIUM 50 MG TABLET PO SCH (10:46)
[2019-07-25] MEDS: AZITHROMYCIN 250 MG TABLET PO SCH (10:46)
[2019-07-25] MEDS: METOPROLOL SUCCINATE 25 MG TAB.SR.24H PO SCH ×2 (10:48→23:32)
[2019-07-25] MEDS: GUAIFENESIN 600 MG TABLET.SA PO SCH ×2 (10:51→19:44)
[2019-07-25] MEDS: NYSTATIN CREAM 15 GM TP SCH ×3 (10:52→19:47)
[2019-07-25] MEDS: FLUTICASONE/VILANTEROL 200-25 MCG/DOSE IH SCH (10:53)
[2019-07-25] MEDS: CEFTRIAXONE 1 GM/D5W RTU 1 GM/50 ML RTUPB IV SCH (10:55)
[2019-07-25] MEDS: ENOXAPARIN SODIUM INJ 40 MG/0.4 ML DISP.SYRIN SUBCUT SCH (10:57)
[2019-07-25] MEDS: DOCUSATE SODIUM 100 MG CAPSULE PO SCH ×2 (13:47→19:46)
[2019-07-25] MEDS: THIAMINE HCL 100 MG TABLET PO SCH (13:48)
[2019-07-25] MEDS: OXYBUTYNIN CHLORIDE 5 MG TABLET PO SCH ×2 (13:49→21:28)
[2019-07-25] MEDS: ASPIRIN 81 MG TABLET, ENT COATED PO SCH (13:50)
[2019-07-25] MEDS: PREDNISONE 10 MG TABLET PO SCH ×2 (13:52→19:44)
[2019-07-25] MEDS: OLOPATADINE HCL 0.1% OPH SOLN 5 ML OU SCH ×2 (13:54→19:47)
[2019-07-25] MEDS: POLYETHYLENE GLYCOL 3350 POWDER 17 GM/1 PACKET PO SCH (13:54)
[2019-07-25] MEDS: NITROGLYCERIN 5 MG (0.2 MG/HR) PATCH.TD24 TD SCH (13:54)
[2019-07-25] MEDS: CEFEPIME 1 GM/D5W RTU 1 GM/50 ML RTUPB IV SCH ×2 (13:56→21:28)
--- NOTE | 2019-07-25 15:02 | PDOC PROGRESS REPORT ---
Subjective Progress Note for:: 07/25/19 Subjective:: Patient seen by the bedside, she has a large paraesophageal hernia, she is admitted for pneumonia, she has severe kyphoscoliosis Reason For Visit: RESPIRATORY DISTRESS PNEUMONIA Physical Exam Vital Signs: Temp Pulse Resp BP Pulse Ox 97.6 F 60 16 141/69 H 96 07/25/19 08:16 07/25/19 13:25 07/25/19 13:25 07/25/19 08:16 07/25/19 13:25 Pulse Oximeter Continuous Start: 07/23/19 17:39 Freq: RTQ4 Status: Active Protocol: Document 07/25/19 12:00 HCR (Rec: 07/25/19 13:25 HCR [id number]) Pulse Oximetry Assessment Equipment Usage Equipment Standby Continuous SpO2 Machine # 9 Additional RT Notes Other RN requests not to awaken pt at this time Intake & Output 07/24/19 07/25/19 07/26/19 06:59 06:59 06:59 Intake Total 100 1792 Balance 100 1792 Weight 60.3 kg 61.3 kg General appearance: PRESENT: no acute distress Eye exam: PRESENT: PERRLA Respiratory exam: PRESENT: clear to auscultation candelario, other - Kyphoscoliosis of the thoracic spine Cardiovascular exam: PRESENT: +S1, +S2 GI/Abdominal exam: PRESENT: soft Neurological exam: PRESENT: alert Results Laboratory Results: 07/25/19 04:55 07/23/19 16:45 07/25/19 04:55 WBC 19.7 H D RBC 4.87 Hgb 13.9 Hct 40.7 MCV 83 MCH 28.4 MCHC 34.1 RDW 14.9 H Plt Count 229 Seg Neutrophils % 84.9 H 07/23/19 07/23/19 07/23/19 11:45 11:45 16:45 Creatine Kinase 43 46 CK-MB (CK-2) Troponin I < 0.012 NT-Pro-B Natriuret Pep 469 H 07/23/19 07/23/19 07/23/19 16:45 21:30 21:30 Creatine Kinase 49 CK-MB (CK-2) 0.91 1.06 Troponin I < 0.012 < 0.012 NT-Pro-B Natriuret Pep 07/24/19 07/24/19 04:33 04:33 Creatine Kinase 68 CK-MB (CK-2) 1.46 Troponin I < 0.012 NT-Pro-B Natriuret Pep Impressions: Chest X-Ray 07/23/19 11:34 IMPRESSION: Borderline cardiomegaly without pulmonary edema. Airspace disease in right middle and lower lobes, likely pneumonia. Chest/Abdomen CTA 07/23/19 15:03 IMPRESSION: 1 1. There is no pulmonary embolus. There is no aortic aneurysm or dissection. 2. There is a large anterior diaphragmatic hernia on the right with stool- containing large bowel above the diaphragm. Small hiatal hernia. Assessment & Plan - Diagnosis (1) Pneumonia, unspecified organism Is this a current diagnosis for this admission?: Yes Plan: Continue IV antibiotic (2) Diaphragmatic hernia without obstruction or gangrene Is this a current diagnosis for this admission?: Yes - Time Time Spent with patient: 25-34 minutes Level of Care: IMCU
[2019-07-25] MEDS: ACETAMINOPHEN 325 MG TABLET PO PRN (15:23)
[2019-07-25] MEDS: PANTOPRAZOLE SODIUM 20 MG TABLET.DR PO SCH (15:33)
[2019-07-25] MEDS: MONTELUKAST SODIUM 10 MG TABLET PO SCH (21:28)
[2019-07-25] MEDS: ATORVASTATIN CALCIUM 20 MG TABLET PO SCH (21:28)
[2019-07-25] MEDS: CETIRIZINE 10 MG TABLET PO SCH (21:28)
[2019-07-26 04:43] LABS: ABSOLUTE LYMPHOCYTES (AUTO) 1.2 10^3/uL (0.5-4.7); ABSOLUTE MONOCYTES (AUTO) 0.5 10^3/uL (0.1-1.4); ABSOLUTE NEUT (AUTO) 7.6 10^3/uL (1.7-8.2); BASOPHILS % (AUTO) 0.1 % (0-2); EOSINOPHILS % (AUTO) 0.2 % (0-6); HEMATOCRIT 39.4 % (36.0-47.0); HEMOGLOBIN 13.3 g/dL (12.0-15.5); LYMPHOCYTES % (AUTO) 13.1 % (13-45); MEAN CORPUSCULAR HEMOGLOBIN 28.3 pg (27.0-33.4); MEAN CORPUSCULAR HGB CONC 33.7 g/dL (32.0-36.0); MEAN CORPUSCULAR VOLUME 84 fl (80-97); MONOCYTES % (AUTO) 5.5 % (3-13); PLATELET COUNT 211 10^3/uL (150-450); RED BLOOD COUNT 4.69 10^6/uL (3.72-5.28); RED CELL DISTRIBUTION WIDTH 14.8 % (11.5-14.0); SEGMENTED NEUTROPHILS % (AUTO) 81.1 % (42-78); TOTAL CELLS COUNTED % (AUTO) 100 %; WHITE BLOOD COUNT 9.4 10^3/uL (4.0-10.5)
[2019-07-26] MEDS: PANTOPRAZOLE SODIUM 40 MG TABLET.DR PO SCH ×2 (05:09→17:42)
[2019-07-26] MEDS: IPRATROPIUM/ALBUTEROL 0.5-2.5 MG/3 ML AMPUL NEB SCH ×3 (08:14→20:03)
[2019-07-26] MEDS: FLUTICASONE/VILANTEROL 200-25 MCG/DOSE IH SCH (09:06)
[2019-07-26] MEDS: OLOPATADINE HCL 0.1% OPH SOLN 5 ML OU SCH ×2 (09:07→17:43)
[2019-07-26] MEDS: POLYETHYLENE GLYCOL 3350 POWDER 17 GM/1 PACKET PO SCH (09:12)
[2019-07-26] MEDS: METOPROLOL SUCCINATE 25 MG TAB.SR.24H PO SCH ×2 (09:12→21:24)
[2019-07-26] MEDS: PREDNISONE 10 MG TABLET PO SCH ×2 (09:12→17:42)
[2019-07-26] MEDS: CEFTRIAXONE 1 GM/D5W RTU 1 GM/50 ML RTUPB IV SCH (09:14)
[2019-07-26] MEDS: CEFEPIME 1 GM/D5W RTU 1 GM/50 ML RTUPB IV SCH ×2 (09:15→21:24)
[2019-07-26] MEDS: PANTOPRAZOLE SODIUM 20 MG TABLET.DR PO SCH (09:16)
[2019-07-26] MEDS: NITROGLYCERIN 5 MG (0.2 MG/HR) PATCH.TD24 TD SCH (09:16)
[2019-07-26] MEDS: OXYBUTYNIN CHLORIDE 5 MG TABLET PO SCH ×2 (09:16→21:23)
[2019-07-26] MEDS: GUAIFENESIN 600 MG TABLET.SA PO SCH ×2 (09:16→17:42)
[2019-07-26] MEDS: AZITHROMYCIN 250 MG TABLET PO SCH (09:16)
[2019-07-26] MEDS: FAMOTIDINE 20 MG TABLET PO SCH (09:16)
[2019-07-26] MEDS: LOSARTAN POTASSIUM 50 MG TABLET PO SCH (09:16)
[2019-07-26] MEDS: ASPIRIN 81 MG TABLET, ENT COATED PO SCH (09:16)
[2019-07-26] MEDS: DOCUSATE SODIUM 100 MG CAPSULE PO SCH ×2 (09:17→17:42)
[2019-07-26] MEDS: THIAMINE HCL 100 MG TABLET PO SCH (09:17)
[2019-07-26] MEDS: ENOXAPARIN SODIUM INJ 40 MG/0.4 ML DISP.SYRIN SUBCUT SCH (09:17)
[2019-07-26] MEDS: NYSTATIN CREAM 15 GM TP SCH ×3 (09:18→17:40)
[2019-07-26] MEDS: ACETAMINOPHEN 325 MG TABLET PO PRN ×2 (13:31→21:25)
--- NOTE | 2019-07-26 16:18 | PDOC PROGRESS REPORT ---
Subjective Progress Note for:: 07/26/19 Subjective:: Patient seen by the bedside, she has a large paraesophageal hernia, she is admitted for pneumonia, she has severe kyphoscoliosis Reason For Visit: RESPIRATORY DISTRESS PNEUMONIA Physical Exam Vital Signs: Temp Pulse Resp BP Pulse Ox 97.5 F 57 L 16 127/63 H 94 07/26/19 12:10 07/26/19 14:00 07/26/19 13:59 07/26/19 12:10 07/26/19 13:59 Pulse Oximeter Continuous Start: 07/23/19 17:39 Freq: RTQ4 Status: Active Protocol: Document 07/26/19 12:25 HCR (Rec: 07/26/19 12:26 HCR [id number]) Pulse Oximetry Assessment Oxygen Saturation (92-100) 94 Oxygen Flow Rate (L/min) 2 Oxygen Delivery Method Nasal Cannula Equipment Usage Equipment Standby Continuous SpO2 Machine # 9 Intake & Output 07/25/19 07/26/19 07/27/19 06:59 06:59 06:59 Intake Total 1791 2020 Balance 1791 2020 Weight 61.3 kg 56.9 kg General appearance: PRESENT: no acute distress Eye exam: PRESENT: PERRLA Respiratory exam: PRESENT: clear to auscultation candelario Cardiovascular exam: PRESENT: +S1, +S2 GI/Abdominal exam: PRESENT: soft Results Laboratory Results: 07/26/19 04:27 07/23/19 16:45 07/26/19 04:27 WBC 9.4 RBC 4.69 Hgb 13.3 Hct 39.4 MCV 84 MCH 28.3 MCHC 33.7 RDW 14.8 H Plt Count 211 Seg Neutrophils % 81.1 H 07/23/19 12:15 Clean Catch Midstream Urine Culture - Final Mixed Urogenital Zahra 07/23/19 07/23/19 07/23/19 11:45 11:45 16:45 Creatine Kinase 43 46 CK-MB (CK-2) Troponin I < 0.012 NT-Pro-B Natriuret Pep 469 H 07/23/19 07/23/19 07/23/19 16:45 21:30 21:30 Creatine Kinase 49 CK-MB (CK-2) 0.91 1.06 Troponin I < 0.012 < 0.012 NT-Pro-B Natriuret Pep 07/24/19 07/24/19 04:33 04:33 Creatine Kinase 68 CK-MB (CK-2) 1.46 Troponin I < 0.012 NT-Pro-B Natriuret Pep Impressions: Chest X-Ray 07/23/19 11:34 IMPRESSION: Borderline cardiomegaly without pulmonary edema. Airspace disease in right middle and lower lobes, likely pneumonia. Chest/Abdomen CTA 07/23/19 15:03 IMPRESSION: 1 1. There is no pulmonary embolus. There is no aortic aneurysm or dissection. 2. There is a large anterior diaphragmatic hernia on the right with stool- containing large bowel above the diaphragm. Small hiatal hernia. Assessment & Plan - Diagnosis (1) Pneumonia, unspecified organism Is this a current diagnosis for this admission?: Yes Plan: Continue IV antibiotic (2) Diaphragmatic hernia without obstruction or gangrene Is this a current diagnosis for this admission?: Yes - Time Time Spent with patient: 15-24 minutes
[2019-07-26] MEDS: ATORVASTATIN CALCIUM 20 MG TABLET PO SCH (21:23)
[2019-07-26] MEDS: CETIRIZINE 10 MG TABLET PO SCH (21:23)
[2019-07-26] MEDS: MONTELUKAST SODIUM 10 MG TABLET PO SCH (21:23)
[2019-07-26] MEDS: MAG HYDROX/AL HYDROX/SIMETH SUSP 30 ML UDCUP PO PRN (22:14)
[2019-07-27] MEDS: BENZONATATE 100 MG CAPSULE PO PRN (00:03)
[2019-07-27] MEDS: PANTOPRAZOLE SODIUM 40 MG TABLET.DR PO SCH ×2 (05:43→17:58)
[2019-07-27] MEDS: IPRATROPIUM/ALBUTEROL 0.5-2.5 MG/3 ML AMPUL NEB SCH ×3 (08:42→20:15)
--- NOTE | 2019-07-27 08:42 | PDOC PROGRESS REPORT ---
Subjective Progress Note for:: 07/27/19 Subjective:: Patient is currently doing much better Denied any chest pain to than any shortness of the breath Is walking the hallway without any problems Reason For Visit: RESPIRATORY DISTRESS PNEUMONIA Physical Exam Vital Signs: Temp Pulse Resp BP Pulse Ox 98.1 F 58 L 18 134/61 H 96 07/27/19 08:20 07/27/19 08:20 07/27/19 08:20 07/27/19 08:20 07/27/19 08:20 Pulse Oximeter Continuous Start: 07/23/19 17:39 Freq: RTQ4 Status: Active Protocol: Document 07/27/19 00:24 CMI (Rec: 07/27/19 00:24 CMI [email or web address]) Pulse Oximetry Assessment Oxygen Saturation (92-100) 93 Oxygen Flow Rate (L/min) 1.5 Oxygen Delivery Method Nasal Cannula Fraction of Inspired Oxygen (FIO2) 26 Equipment Usage Equipment Standby Continuous Pulse Oximeter 24 Hour Charge Charge Now Continuous SpO2 Machine # 9 Intake & Output 07/26/19 07/27/19 07/28/19 06:59 06:59 06:59 Intake Total 2020 520 Balance 2020 520 Weight 56.9 kg 59.6 kg General appearance: PRESENT: no acute distress, well-developed, well-nourished Head exam: PRESENT: atraumatic, normocephalic Eye exam: PRESENT: conjunctiva pink, EOMI, PERRLA. ABSENT: scleral icterus Ear exam: PRESENT: normal external ear exam Mouth exam: PRESENT: moist, tongue midline Neck exam: PRESENT: full ROM. ABSENT: carotid bruit, JVD, lymphadenopathy, thyromegaly Respiratory exam: PRESENT: clear to auscultation candelario Cardiovascular exam: PRESENT: RRR. ABSENT: diastolic murmur, rubs, systolic murmur Pulses: PRESENT: normal dorsalis pedis pul, +2 pedal pulses bilateral Vascular exam: PRESENT: normal capillary refill GI/Abdominal exam: PRESENT: normal bowel sounds, soft. ABSENT: distended, guarding, mass, organolmegaly, rebound, tenderness Rectal exam: PRESENT: deferred Musculoskeletal exam: PRESENT: ambulatory Neurological exam: PRESENT: alert, awake, oriented to person, oriented to place, oriented to time, oriented to situation, CN II-XII grossly intact. ABSENT: motor sensory deficit Psychiatric exam: PRESENT: appropriate affect, normal mood. ABSENT: homicidal ideation, suicidal ideation Skin exam: PRESENT: dry, intact, warm. ABSENT: cyanosis, rash Results Laboratory Results: 07/26/19 04:27 07/23/19 16:45 07/23/19 07/23/19 07/23/19 11:45 11:45 16:45 Creatine Kinase 43 46 CK-MB (CK-2) Troponin I < 0.012 NT-Pro-B Natriuret Pep 469 H 07/23/19 07/23/19 07/23/19 16:45 21:30 21:30 Creatine Kinase 49 CK-MB (CK-2) 0.91 1.06 Troponin I < 0.012 < 0.012 NT-Pro-B Natriuret Pep 07/24/19 07/24/19 04:33 04:33 Creatine Kinase 68 CK-MB (CK-2) 1.46 Troponin I < 0.012 NT-Pro-B Natriuret Pep Impressions: Chest X-Ray 07/23/19 11:34 IMPRESSION: Borderline cardiomegaly without pulmonary edema. Airspace disease in right middle and lower lobes, likely pneumonia. Chest/Abdomen CTA 07/23/19 15:03 IMPRESSION: 1 1. There is no pulmonary embolus. There is no aortic aneurysm or dissection. 2. There is a large anterior diaphragmatic hernia on the right with stool- containing large bowel above the diaphragm. Small hiatal hernia. Assessment & Plan - Diagnosis (1) Pneumonia Qualifiers: Pneumonia type: due to unspecified organism Is this a current diagnosis for this admission?: Yes Plan: Start the patient on IV antibiotic (2) Respiratory distress Is this a current diagnosis for this admission?: Yes Plan: Currently all stable and resolved (3) Shortness of breath Is this a current diagnosis for this admission?: Yes Plan: See above (4) Asthma exacerbation Qualifiers: Asthma severity: moderate Is this a current diagnosis for this admission?: Yes Plan: Patient is currently doing well discontinues to IV steroid and put on a p.o. steroids (5) Diaphragmatic hernia Qualifiers: Obstruction and gangrene presence: without obstruction or gangrene Qualified Code(s): K44.9 - Diaphragmatic hernia without obstruction or gangrene Is this a current diagnosis for this admission?: Yes Plan: Follow with the surgery (6) Hyperlipidemia Qualifiers: Hyperlipidemia type: unspecified Qualified Code(s): E78.5 - Hyperlipidemia, unspecified Is this a current diagnosis for this admission?: Yes Plan: Currently all stable (7) Hypertension Qualifiers: Hypertension type: essential hypertension Qualified Code(s): I10 - Essential (primary) hypertension Is this a current diagnosis for this admission?: Yes Plan: Continues to current medications (8) Coronary artery disease Qualifiers: Coronary Disease-Associated Artery/Lesion type: unspecified vessel or lesion type Associated angina: without angina Is this a current diagnosis for this admission?: Yes - Time Time Spent with patient: 15-24 minutes Level of Care: IMCU Medications reviewed and adjusted accordingly: Yes Anticipated discharge: Home with Homehealth Within: within 24 hours - Plan Summary Plan Summary: Continues to current medications Try to wean off from the oxygen
[2019-07-27] MEDS ORDERED: PREDNISONE 10 MG TABLET PO SCH (10:00)
[2019-07-27] MEDS: FLUTICASONE/VILANTEROL 200-25 MCG/DOSE IH SCH (10:03)
[2019-07-27] MEDS: OLOPATADINE HCL 0.1% OPH SOLN 5 ML OU SCH ×2 (10:03→17:57)
[2019-07-27] MEDS: ENOXAPARIN SODIUM INJ 40 MG/0.4 ML DISP.SYRIN SUBCUT SCH (10:03)
[2019-07-27] MEDS: NYSTATIN CREAM 15 GM TP SCH ×3 (10:04→17:58)
[2019-07-27] MEDS: CEFTRIAXONE 1 GM/D5W RTU 1 GM/50 ML RTUPB IV SCH (10:10)
[2019-07-27] MEDS: CEFEPIME 1 GM/D5W RTU 1 GM/50 ML RTUPB IV SCH ×2 (10:11→22:01)
[2019-07-27] MEDS: OXYBUTYNIN CHLORIDE 5 MG TABLET PO SCH ×2 (10:12→22:01)
[2019-07-27] MEDS: ASPIRIN 81 MG TABLET, ENT COATED PO SCH (10:13)
[2019-07-27] MEDS: DOCUSATE SODIUM 100 MG CAPSULE PO SCH ×2 (10:13→17:58)
[2019-07-27] MEDS: GUAIFENESIN 600 MG TABLET.SA PO SCH ×2 (10:13→17:58)
[2019-07-27] MEDS: LOSARTAN POTASSIUM 50 MG TABLET PO SCH (10:13)
[2019-07-27] MEDS: METOPROLOL SUCCINATE 25 MG TAB.SR.24H PO SCH ×2 (10:13→22:01)
[2019-07-27] MEDS: PANTOPRAZOLE SODIUM 20 MG TABLET.DR PO SCH (10:13)
[2019-07-27] MEDS: FAMOTIDINE 20 MG TABLET PO SCH (10:13)
[2019-07-27] MEDS: AZITHROMYCIN 250 MG TABLET PO SCH (10:14)
[2019-07-27] MEDS: POLYETHYLENE GLYCOL 3350 POWDER 17 GM/1 PACKET PO SCH (10:14)
[2019-07-27] MEDS: NITROGLYCERIN 5 MG (0.2 MG/HR) PATCH.TD24 TD SCH (10:14)
[2019-07-27] MEDS: THIAMINE HCL 100 MG TABLET PO SCH (10:14)
--- NOTE | 2019-07-27 13:54 | RADIOLOGY REPORT (SQ) ---
EXAM DESCRIPTION: CHEST 2 VIEWS COMPLETED DATE/TIME: 07/27/2019 1:33 pm REASON FOR STUDY: pnemonia COMPARISON: CT angio chest 07/23/2019, 04/04/2019 Chest films 07/23/2019, 05/14/2019, 02/23/2019, 11/24/2018 EXAM PARAMETERS: NUMBER OF VIEWS: two views TECHNIQUE: Digital Frontal and Lateral radiographic views of the chest acquired. RADIATION DOSE: NA LIMITATIONS: none FINDINGS: LUNGS AND PLEURA: The patient has a large eventration of the anterior right hemidiaphragm , with hepatic flexure of colon projected over the right lower lobe on the frontal film, and over the cardiac shadow 1 lateral film. This is similar compared to multiple previous exams. No acute infiltrates. No pleural effusion or pneumothorax. MEDIASTINUM AND HILAR STRUCTURES: No masses or contour abnormalities. HEART AND VASCULAR STRUCTURES: Mild cardiomegaly BONES: No acute findings. HARDWARE: None in the chest. OTHER: No other significant finding. IMPRESSION: Eventration anterior right hemidiaphragm with hepatic flexure colon projected over the r ight lower anterior chest. No acute infiltrates. No pleural effusion or pneumothorax. TECHNICAL DOCUMENTATION: JOB ID: [id number] [employer]- All Rights Reserved Reading location - IP/workstation name: [email or web address]
[2019-07-27] MEDS: ACETAMINOPHEN 325 MG TABLET PO PRN (20:06)
[2019-07-27] MEDS: CETIRIZINE 10 MG TABLET PO SCH (22:01)
[2019-07-27] MEDS: ATORVASTATIN CALCIUM 20 MG TABLET PO SCH (22:01)
[2019-07-27] MEDS: MONTELUKAST SODIUM 10 MG TABLET PO SCH (22:01)
[2019-07-28] MEDS: ACETAMINOPHEN 325 MG TABLET PO PRN (01:39)
[2019-07-28] MEDS: BENZONATATE 100 MG CAPSULE PO PRN (04:09)
[2019-07-28] MEDS: PANTOPRAZOLE SODIUM 40 MG TABLET.DR PO SCH (05:33)
[2019-07-28] MEDS: IPRATROPIUM/ALBUTEROL 0.5-2.5 MG/3 ML AMPUL NEB SCH (08:00)
--- NOTE | 2019-07-28 08:01 | PDOC DISCHARGE SUMMARY ---
Impression - Admit/DC Date/PCP Admission Date/Primary Care Provider: 07/23/19 15:58 RUBI GAUIAR MD Discharge Date: 07/28/19 - Discharge Diagnosis (1) Pneumonia Is this a current diagnosis for this admission?: Yes (2) Respiratory distress Is this a current diagnosis for this admission?: Yes (3) Shortness of breath Is this a current diagnosis for this admission?: Yes (4) Asthma exacerbation Is this a current diagnosis for this admission?: Yes (5) Diaphragmatic hernia Is this a current diagnosis for this admission?: Yes (6) Hyperlipidemia Is this a current diagnosis for this admission?: Yes (7) Hypertension Is this a current diagnosis for this admission?: Yes (8) Coronary artery disease Is this a current diagnosis for this admission?: Yes - Additional Information Resuscitation Status: Do Not Resuscitate Discharge Diet: Cardiac Discharge Activity: Activity As Tolerated Referrals: KATHERIN ADEN MD [ACTIVE STAFF] - 07/29/19 10:30 am (Bring insurance card, ID and list of medications to appointment.) RUBI AGUIAR MD [Primary Care Provider] - Follow up as needed () Prescriptions: Cefuroxime Axetil [Ceftin 500 mg Tablet] 1 tab PO BID #14 tablet Guaifenesin [Mucinex Sr 600 mg Tablet.sa] 600 mg PO BID #60 tablet.sa Home Medications: Albuterol Sulfate [Ventolin 0.083% Neb 2.5 mg/3 mL Ampul] 1 vial NEB RTQ8HP PRN 07/23/19 Albuterol Sulfate [Ventolin Hfa 8 gm Mdi (1 Mdi/ER Disp)] 2 puff IH Q4 07/23/19 Aspirin [Adult Low Dose Aspirin EC] 81 mg PO DAILY 07/23/19 Atorvastatin Calcium [Lipitor 20 mg Tablet] 20 mg PO QHS 07/23/19 Benzonatate [Tessalon Perles 100 mg Capsule] 100 mg PO Q8HP PRN 07/23/19 Fluticasone/Salmeterol [Advair 500-50 Diskus 14 Dose/Diskus] 1 puff IH BID 07/23/19 Losartan Potassium [Cozaar 100 mg Tablet] 100 mg PO DAILY 07/23/19 Metoprolol Succinate [Toprol Xl 25 mg Tab.sr] 25 mg PO Q12 07/23/19 Mirabegron [Myrbetriq] 25 mg PO DAILY 07/23/19 Montelukast Sodium [Singulair 10 mg Tablet] 10 mg PO QHS 07/23/19 Nitroglycerin [Nitro-Dur 5 mg (0.2 mg/Hr) Transdermal Patch] 1 each TD DAILY 07/23/19 Olopatadine HCl [Patanol 0.1% Oph Soln 5 ml] 1 drop OU BID 07/23/19 Omeprazole 20 mg PO DAILY 07/23/19 Ranitidine HCl [Zantac] 300 mg PO DAILY 07/23/19 Thiamine Mononitrate [Vitamin B-1] 100 mg PO DAILY 07/23/19 Cefuroxime Axetil [Ceftin 500 mg Tablet] 1 tab PO BID #14 tablet 07/28/19 Guaifenesin [Mucinex Sr 600 mg Tablet.sa] 600 mg PO BID #60 tablet.sa 07/28/19 History of Present Illiness History of Present Illness: BHUPINDER Walsh LADUE is a 78 year old female Is a 78-year-old female's with a history of the hypertension's hyperlipidemia history of the paraesophageal reflex history of the asthma and history of the coronary disease came to the emergency department with a complaining of her shortness of the breath and the respiratory distressed patients called EMS brought to the emergency department will patient initial chest x-ray was consistent with a pneumonia Patient's at this point underwent with a CT angiogram with associated large paraesophageal hernia which patient have this for a long time seen by the Dr. Cool this year and endoscopy was done Patient still received the nebulizer treatments and IV antibiotics Also recently seen by Dr. HUNTLEY have echocardiogram was done with the EF was normal Patient's having some mild vascular congestion's and cardiomegaly Patient's CTA negative for any pulmonary embolism At this point decided to admit the patient in the hospital for further evaluations Is denied any chest pain Feel better after nebulizer treatments Hospital Course Hospital Course: This is a 78-year-old female present in the emergency department with a complaint of shortness of the breath no respiratory distressed and the patient is found to be pneumonia and a large paraesophageal hernia Patients treated with IV antibiotic respiratory treatments patient's response very well Patient also seen by Dr. HUNTLEY with the recent echocardiograms and ALT cardiac status is stable Patient also seen by the surgery Dr. Ferguson for diaphragmatic hernia and suggested he will do the laparoscopic repair as an outpatient Patient is otherwise doing well Patient is walking the hallway without any problems Patients have afebrile white count is normal Patients does not require any oxygen Patient's chest x-ray is all clear Patient's son scheduled to see the [facility] for diaphragmatic hernia repair Patient is also giving the oral antibiotic for 7 days Physical Exam Vital Signs: Temp Pulse Resp BP Pulse Ox 97.5 F 58 L 22 H 143/61 H 92 07/28/19 03:19 07/28/19 03:19 07/28/19 03:19 07/28/19 03:19 07/28/19 04:08 Pulse Oximeter Continuous Start: 07/23/19 17:39 Freq: RTQ4 Status: Active Protocol: Document 07/28/19 04:08 DBE (Rec: 07/28/19 05:43 DBE [email or web address]) Pulse Oximetry Assessment Oxygen Saturation (92-100) 92 Oxygen Delivery Method Room Air Fraction of Inspired Oxygen (FIO2) 21 Equipment Usage Equipment Standby Continuous SpO2 Machine # 9 Intake & Output 07/27/19 07/28/19 07/29/19 06:59 06:59 06:59 Intake Total 520 1373 Balance 520 1373 Weight 59.6 kg 61.4 kg General appearance: PRESENT: no acute distress, well-developed, well-nourished Head exam: PRESENT: atraumatic, normocephalic Eye exam: PRESENT: conjunctiva pink, EOMI, PERRLA. ABSENT: scleral icterus Ear exam: PRESENT: normal external ear exam Mouth exam: PRESENT: moist, tongue midline Neck exam: ABSENT: carotid bruit, JVD, lymphadenopathy, thyromegaly Respiratory exam: PRESENT: clear to auscultation candelario. ABSENT: rales, rhonchi, wheezes Cardiovascular exam: PRESENT: RRR. ABSENT: diastolic murmur, rubs, systolic murmur Pulses: PRESENT: normal dorsalis pedis pul Vascular exam: PRESENT: normal capillary refill GI/Abdominal exam: PRESENT: normal bowel sounds, soft. ABSENT: distended, guarding, mass, organolmegaly, rebound, tenderness Rectal exam: PRESENT: deferred Extremities exam: PRESENT: full ROM. ABSENT: calf tenderness, clubbing, pedal edema Neurological exam: PRESENT: alert, awake, oriented to person, oriented to place, oriented to time, oriented to situation, CN II-XII grossly intact. ABSENT: motor sensory deficit Psychiatric exam: PRESENT: appropriate affect, normal mood. ABSENT: homicidal ideation, suicidal ideation Skin exam: PRESENT: dry, intact, warm. ABSENT: cyanosis, rash Results Laboratory Results: WBC 9.4 10^3/uL (4.0-10.5) 07/26/19 04:27 RBC 4.69 10^6/uL (3.72-5.28) 07/26/19 04:27 Hgb 13.3 g/dL (12.0-15.5) 07/26/19 04:27 Hct 39.4 % (36.0-47.0) 07/26/19 04:27 MCV 84 fl (80-97) 07/26/19 04:27 MCH 28.3 pg (27.0-33.4) 07/26/19 04:27 MCHC 33.7 g/dL (32.0-36.0) 07/26/19 04:27 RDW 14.8 % (11.5-14.0) H 07/26/19 04:27 Plt Count 211 10^3/uL (150-450) 07/26/19 04:27 Lymph % (Auto) 13.1 % (13-45) 07/26/19 04:27 [place] % (Auto) 5.5 % (3-13) 07/26/19 04:27 Eos % (Auto) 0.2 % (0-6) 07/26/19 04:27 Baso % (Auto) 0.1 % (0-2) 07/26/19 04:27 Absolute Neuts (auto) 7.6 10^3/uL (1.7-8.2) 07/26/19 04:27 Absolute Lymphs (auto) 1.2 10^3/uL (0.5-4.7) 07/26/19 04:27 Absolute Monos (auto) 0.5 10^3/uL (0.1-1.4) 07/26/19 04:27 Absolute Eos (auto) 0.0 10^3/uL (0.0-0.6) 07/26/19 04:27 Absolute Basos (auto) 0.0 10^3/uL (0.0-0.2) 07/26/19 04:27 Seg Neutrophils % 81.1 % (42-78) H 07/26/19 04:27 VBG pH 7.37 (7.30-7.42) 07/23/19 11:45 VBG pCO2 49.9 mmHg (35-63) 07/23/19 11:45 VBG HCO3 28.0 mmol/L (20-32) 07/23/19 11:45 VBG Base Excess 1.7 mmol/L 07/23/19 11:45 Sodium 140.5 mmol/L (137-145) 07/23/19 16:45 Potassium 4.0 mmol/L (3.6-5.0) 07/23/19 16:45 Chloride 102 mmol/L (98-107) 07/23/19 16:45 Carbon Dioxide 26 mmol/L (22-30) 07/23/19 16:45 Anion Gap 13 (5-19) 07/23/19 16:45 BUN 16 mg/dL (7-20) 07/23/19 16:45 Creatinine 0.67 mg/dL (0.52-1.25) 07/23/19 16:45 Est GFR ( Amer) > 60 (>60) 07/23/19 16:45 Est GFR (MDRD) Non-Af > 60 (>60) 07/23/19 16:45 Glucose 108 mg/dL (75-110) 07/23/19 16:45 Lactic Acid 1.3 mmol/L (0.7-2.1) 07/23/19 11:45 Calcium 10.5 mg/dL (8.4-10.2) H 07/23/19 16:45 Total Bilirubin 0.7 mg/dL (0.2-1.3) 07/23/19 11:45 Direct Bilirubin 0.1 mg/dL (0.0-0.4) 07/23/19 11:45 Neonat Total Bilirubin Not Reportable 07/23/19 11:45 Neonat Direct Bilirubin Not Reportable 07/23/19 11:45 Neonat Indirect Bili Not Reportable 07/23/19 11:45 AST 25 U/L (14-36) 07/23/19 11:45 ALT 12 U/L (<35) 07/23/19 11:45 Alkaline Phosphatase 72 U/L (38-126) 07/23/19 11:45 Creatine Kinase 68 U/L (30-135) 07/24/19 04:33 CK-MB (CK-2) 1.46 ng/mL (<4.55) 07/24/19 04:33 Troponin I < 0.012 ng/mL 07/24/19 04:33 NT-Pro-B Natriuret Pep 469 pg/mL (<450) H 07/23/19 11:45 Total Protein 7.6 g/dL (6.3-8.2) 07/23/19 11:45 Albumin 4.6 g/dL (3.5-5.0) 07/23/19 11:45 Urine Color YELLOW 07/23/19 12:15 Urine Appearance CLEAR 07/23/19 12:15 Urine pH 7.0 (5.0-9.0) 07/23/19 12:15 Ur Specific [place] 1.016 07/23/19 12:15 Urine Protein NEGATIVE mg/dL (NEGATIVE) 07/23/19 12:15 Urine Glucose (UA) NEGATIVE mg/dL (NEGATIVE) 07/23/19 12:15 Urine Ketones NEGATIVE mg/dL (NEGATIVE) 07/23/19 12:15 Urine Blood NEGATIVE (NEGATIVE) 07/23/19 12:15 Urine Nitrite NEGATIVE (NEGATIVE) 07/23/19 12:15 Urine Bilirubin NEGATIVE (NEGATIVE) 07/23/19 12:15 Urine Urobilinogen NEGATIVE mg/dL (<2.0) 07/23/19 12:15 Ur Leukocyte Esterase NEGATIVE (NEGATIVE) 07/23/19 12:15 Urine WBC (Auto) 1 /HPF 07/23/19 12:15 Urine RBC (Auto) 1 /HPF 07/23/19 12:15 U Hyaline Cast (Auto) 1 /LPF 07/23/19 12:15 Squamous Epi Cells Auto 2 /HPF 07/23/19 12:15 Urine Mucus (Auto) RARE /LPF 07/23/19 12:15 Urine Ascorbic Acid NEGATIVE (NEGATIVE) 07/23/19 12:15 07/23/19 07/23/19 07/23/19 11:45 16:45 21:30 CK-MB (CK-2) 0.91 1.06 Troponin I < 0.012 < 0.012 < 0.012 NT-Pro-B Natriuret Pep 469 H 07/24/19 04:33 CK-MB (CK-2) 1.46 Troponin I < 0.012 NT-Pro-B Natriuret Pep Impressions: Chest X-Ray 07/23/19 11:34 IMPRESSION: Borderline cardiomegaly without pulmonary edema. Airspace disease in right middle and lower lobes, likely pneumonia. Chest/Abdomen CTA 07/23/19 15:03 IMPRESSION: 1 1. There is no pulmonary embolus. There is no aortic aneurysm or dissection. 2. There is a large anterior diaphragmatic hernia on the right with stool- containing large bowel above the diaphragm. Small hiatal hernia. Chest X-Ray 07/27/19 00:00 IMPRESSION: Eventration anterior right hemidiaphragm with hepatic flexure colon projected over the right lower anterior chest. No acute infiltrates. No pleural effusion or pneumothorax. Plan Time Spent: Greater than 30 Minutes - Follow-up with [facility] in 1 week Follow in office in 1 week Stroke Is this a Stroke Patient?: No Acute Heart Failure - Is this a Heart Failure Patient?: No
[2019-07-28 08:56] VITALS: BP 158/78
== END 2019-07-28 09:19 | disposition home or self-care (01) | DRG 194 ==
LOC: ER 11:32 → EH 15:58 → 3N 18:44
PROVIDERS: ADMIT Family Medicine; ATTEND Family Medicine
DX: J18.9 Pneumonia, unspecified organism (principal); J45.41 Moderate persistent asthma with (acute) exacerbation; K44.9 Diaphragmatic hernia without obstruction or gangrene; E78.5 Hyperlipidemia, unspecified; I10 Essential (primary) hypertension; I25.10 Atherosclerotic heart disease of native coronary artery without angina pectoris; Z66 Do not resuscitate; K21.9 Gastro-esophageal reflux disease without esophagitis; M40.209 Unspecified kyphosis, site unspecified; D64.9 Anemia, unspecified; Z60.2 Problems related to living alone; I25.2 Old myocardial infarction; Z79.899 Other long term (current) drug therapy; Z79.82 Long term (current) use of aspirin; Z88.0 Allergy status to penicillin; Z88.8 Allergy status to other drugs, medicaments and biological substances; Z88.3 Allergy status to other anti-infective agents; Z91.040 Latex allergy status
CPT/HCPCS: 36415; 71045; 71046; 71275; 80053; 81001; 82550; 82553; 82803; 83605; 83880; 84484; 85025; 87040; 87070; 87077; 87086; 87186; 87205; 93005; 93010; 94640; 94762; 96365; 96367; 96375; 99285; J0692; J0696; J1650; J1940; J1956; J2405; J2920; J2930; J3490; J7512; J7620

== ENCOUNTER → 2019-08-25 | Outpatient (CLI) | payer MEDICARE ==
--- NOTE | 2019-08-25 13:34 | WOMENS IMAGING REPORT ---
EXAM DESCRIPTION: BONE DENSITY HIP/SPINE COMPLETED DATE/TIME: 08/25/2019 1:22 pm REASON FOR STUDY: Z78.0 BONE DENSITY Z12.31 ENCNTR SCREEN MAMMOGRAM FOR MALIGNANT NEOPLASM OF SERG Z 78.0 ASYMPTOMATIC MENOPAUSAL STATE COMPARISON: 08/10/2016 TECHNIQUE: Dual-Energy X-ray Absorptiometry (DEXA) of the AP Spine and Hip. LIMITATIONS: None. FINDINGS: LUMBAR SPINE: The bone mineral density (BMD) measured from L1-L4 in the AP projection correlates with a T-score of -4.0, which is osteoporosis as defined by the World Health Organization. There has been a -7.3% carlin ge since baseline. HIP: The bone mineral density (BMD) measured in the left hip correlates with a T-score of -2.6, which is o steoporosis as defined by the World Health Organization. There has been a -29.0% change since baseli ne. IMPRESSION: 1. LUMBAR SPINE: OSTEOPOROSIS. 2. HIP: OSTEOPOROSIS. COMMENT: The World Health Organization defines low BMD as follows: T-score: Normal: Greater than -1.0 Osteopenia: Between -1.0 and -2.5 Osteoporosis: Less than -2.5 without fractures Established osteoporosis: Less than -2.5 with fractures In general, you may wish to consider: Diagnosis Treatment Follow-up DEXA Normal BMD Prevention 2-3 years Osteopenia Prevention/Therapy 1-2 years Osteoporosis Therapy Yearly TECHNICAL DOCUMENTATION: JOB ID: [id number] [employer]- All Rights Reserved Reading location - IP/workstation name: [email or web address]
--- NOTE | 2019-08-26 09:49 | WOMENS IMAGING REPORT ---
EXAM DESCRIPTION: 3D SCREENING MAMMO BILAT COMPLETED DATE/TIME: 08/25/2019 1:22 pm REASON FOR STUDY: Z12.31 SCREENING MAMMO Z12.31 ENCNTR SCREEN MAMMOGRAM FOR MALIGNANT NEOPLASM OF B RE Z78.0 ASYMPTOMATIC MENOPAUSAL STATE COMPARISON: Multiple since 2009 EXAM PARAMETERS: Views: Standard craniocaudal and mediolateral oblique views of each breast recorded using digital acquisition and breast tomosynthesis. Read with the assistance of CAD. .[facility] - [employer]er/Waitress Version 9.2 LIMITATIONS: None. FINDINGS: No suspicious masses, suspicious calcifications or architectural distortion. No areas of c oncern. IMPRESSION: NEGATIVE MAMMOGRAM. BIRADS 1. BREAST DENSITY: a. The breasts are almost entirely fatty. BIRAD: ASSESSMENT: 1 NEGATIVE RECOMMENDATION: ROUTINE SCREENING Please continue yearly bilateral screening mammography/tomosynthesis in August 2020 COMMENT: The patient has been notified of the results by letter per MQSA requirements. Additional no tification policies are in place for contacting patient with suspicious or incomplete findings. Quality ID #[id number]: The [employer] recommends an annual screening mammogram for women aged 40 years or over. This facility utilizes a reminder system to ensure that all patients receive reminder letters, and/or direct phone calls for appointments. This includes reminders for routine scr eening mammograms, diagnostic mammograms, or other Breast Imaging Interventions when appropriate. Th is patient will be placed in the appropriate reminder system. TECHNICAL DOCUMENTATION: FINDING NUMBER: (1) ASSESSMENT: (1) JOB ID: [id number] [employer]- All Rights Reserved Reading location - IP/workstation name: [email or web address]
== END ==
LOC: WI 12:25
PROVIDERS: ATTEND Physician Assistant
DX: Z12.31 Encounter for screening mammogram for malignant neoplasm of breast (principal); M81.0 Age-related osteoporosis without current pathological fracture; Z78.0 Asymptomatic menopausal state
CPT/HCPCS: 77063; 77067; 77080

== ENCOUNTER → 2019-12-25 | Outpatient (CLI) | payer MEDICARE ==
[2019-12-25 12:15] LABS: ABSOLUTE EOSINOPHILS # (AUTO) 0.1 10^3/uL (0.0-0.6); ABSOLUTE LYMPHOCYTES (AUTO) 1.5 10^3/uL (0.5-4.7); ABSOLUTE MONOCYTES (AUTO) 0.5 10^3/uL (0.1-1.4); ABSOLUTE NEUT (AUTO) 4.4 10^3/uL (1.7-8.2); BASOPHILS % (AUTO) 0.7 % (0-2); EOSINOPHILS % (AUTO) 0.9 % (0-6); HEMATOCRIT 40.8 % (36.0-47.0); HEMOGLOBIN 14.1 g/dL (12.0-15.5); LYMPHOCYTES % (AUTO) 22.7 % (13-45); MEAN CORPUSCULAR HEMOGLOBIN 29.7 pg (27.0-33.4); MEAN CORPUSCULAR HGB CONC 34.6 g/dL (32.0-36.0); MEAN CORPUSCULAR VOLUME 86 fl (80-97); MONOCYTES % (AUTO) 7.7 % (3-13); PLATELET COUNT 224 10^3/uL (150-450); RED BLOOD COUNT 4.76 10^6/uL (3.72-5.28); RED CELL DISTRIBUTION WIDTH 14.2 % (11.5-14.0); TOTAL CELLS COUNTED % (AUTO) 100 %; WHITE BLOOD COUNT 6.4 10^3/uL (4.0-10.5)
[2019-12-25 12:33] LABS: ALBUMIN 4.4 g/dL (3.5-5.0); ALKALINE PHOSPHATASE 65 U/L (38-126); ANION GAP 7 (5-19); ASPARTATE AMINO TRANSFERASE 32 U/L (14-36); BILIRUBIN,TOTAL 0.7 mg/dL (0.2-1.3); BLOOD UREA NITROGEN 13 mg/dL (7-20); CALCIUM 9.9 mg/dL (8.4-10.2); CARBON DIOXIDE 27 mmol/L (22-30); CHLORIDE 100 mmol/L (98-107); GLUCOSE 103 mg/dL (75-110); POTASSIUM 5.2 mmol/L (3.6-5.0); TOTAL PROTEIN 6.9 g/dL (6.3-8.2)
[2019-12-28 19:57] LABS: C DIFFICILE GDH NEGATIVE (NEGATIVE)
== END ==
LOC: OD 10:59
PROVIDERS: ATTEND Physician Assistant
DX: R19.7 Diarrhea, unspecified (principal)
CPT/HCPCS: 36415; 80053; 85025; 87324; 87449

== ENCOUNTER → 2020-01-19 | Outpatient (CLI) | payer MEDICARE ==
[2020-01-19 13:08] LABS: ABSOLUTE LYMPHOCYTES (AUTO) 1.4 10^3/uL (0.5-4.7); ABSOLUTE MONOCYTES (AUTO) 0.6 10^3/uL (0.1-1.4); ABSOLUTE NEUT (AUTO) 4.5 10^3/uL (1.7-8.2); BASOPHILS % (AUTO) 0.4 % (0-2); EOSINOPHILS % (AUTO) 0.6 % (0-6); HEMATOCRIT 39.9 % (36.0-47.0); HEMOGLOBIN 13.7 g/dL (12.0-15.5); LYMPHOCYTES % (AUTO) 20.9 % (13-45); MEAN CORPUSCULAR HEMOGLOBIN 29.6 pg (27.0-33.4); MEAN CORPUSCULAR HGB CONC 34.4 g/dL (32.0-36.0); MEAN CORPUSCULAR VOLUME 86 fl (80-97); MONOCYTES % (AUTO) 9.5 % (3-13); PLATELET COUNT 222 10^3/uL (150-450); RED BLOOD COUNT 4.63 10^6/uL (3.72-5.28); RED CELL DISTRIBUTION WIDTH 14.1 % (11.5-14.0); SEGMENTED NEUTROPHILS % (AUTO) 68.6 % (42-78); TOTAL CELLS COUNTED % (AUTO) 100 %; WHITE BLOOD COUNT 6.6 10^3/uL (4.0-10.5)
[2020-01-19 13:29] LABS: ALBUMIN 3.8 g/dL (3.5-5.0); ALKALINE PHOSPHATASE 63 U/L (38-126); ANION GAP 7 (5-19); ASPARTATE AMINO TRANSFERASE 30 U/L (14-36); BILIRUBIN,TOTAL 0.5 mg/dL (0.2-1.3); BLOOD UREA NITROGEN 8 mg/dL (7-20); CALCIUM 9.4 mg/dL (8.4-10.2); CARBON DIOXIDE 28 mmol/L (22-30); CHLORIDE 95 mmol/L (98-107); GLUCOSE 94 mg/dL (75-110); POTASSIUM 4.4 mmol/L (3.6-5.0); TOTAL PROTEIN 6.4 g/dL (6.3-8.2)
--- NOTE | 2020-01-19 13:36 | RADIOLOGY REPORT (SQ) ---
EXAM DESCRIPTION: ACUTE ABDOMEN SERIES IMAGES COMPLETED DATE/TIME: 01/19/2020 1:23 pm REASON FOR STUDY: DIARRHEA R19.7 DIARRHEA, UNSPECIFIED COMPARISON: Chest x-ray dated 07/23/2019, KUB dated 09/16/2018 NUMBER OF VIEWS: Three views. TECHNIQUE: Frontal chest, supine abdomen and upright/decubitus abdomen radiographic images acquired. LIMITATIONS: None. FINDINGS: CHEST: Persistent opacification the right base consistent with known diaphragmatic eventra tion. FREE AIR: None. No abnormal gas collections. BOWEL GAS PATTERN: There is gastric distention. There is a hiatal hernia well demonstrated due to ai r filled stomach. No evidence of mechanical obstruction. CALCIFICATIONS: Calcified uterine fibroids. HARDWARE: Pessary ring is in place. SOFT TISSUES: No gross mass or suggestion of organomegaly. BONES: No acute fracture. No worrisome bone lesions. OTHER: No other significant finding. IMPRESSION: Mild gastric distension with hiatal hernia. No change in the appearance of the right lung base. The patient has known eventration of the right h emidiaphragm. TECHNICAL DOCUMENTATION: JOB ID: [id number] 2010 [employer]- All Rights Reserved Reading location - IP/workstation name: [email or web address]
== END ==
LOC: OD 12:19
PROVIDERS: ATTEND Physician Assistant
DX: R19.7 Diarrhea, unspecified (principal)
CPT/HCPCS: 36415; 74022; 80053; 83690; 85025

== ENCOUNTER 2020-02-02 02:02 | Inpatient (IN) | payer MEDICARE ==
--- NOTE | 2020-02-02 03:07 | ER Document Report ---
ED Respiratory Problem - General Chief Complaint: Shortness Of Breath Stated Complaint: SHORTNESS OF BREATH Time Seen by Provider: 02/02/20 02:58 Primary Care Provider: ROSHAN RUBI PA-C [Primary Care Provider] - Follow up as needed Notes: CHIEF COMPLAINT: Shortness of breath tonight HPI: 79-year-old female with history of NSTEMI, alcohol abuse, respiratory distress, asthma, hypomagnesemia, hyponatremia presenting by EMS for shortness of breath tonight. Patient states that she felt like her asthma was acting up used her inhaler twice at home without complete resolution of the shortness of breath and called EMS. No chest pain. No recent fever. ROS: See HPI - all other systems were reviewed and are otherwise negative Constitutional: no fever Eyes: no drainage, no blurred vision ENT: no runny nose, no sore throat Cardiovascular: no chest pain Resp: + SOB, + cough GI: no vomiting, no diarrhea, no abdominal pain : no dysuria Integumentary: no rash Allergy: no hives Musculoskeletal: no extremity pain or swelling Neurological: no numbness/tingling, no weakness MEDICATIONS: I agree with the patient medications as charted by the RN. ALLERGIES: I agree with the allergies as charted by the RN. PAST MEDICAL HISTORY/PAST SURGICAL HISTORY: Reviewed and agree as charted by RN. SOCIAL HISTORY: Reviewed and agree as charted by RN. FAMILY HISTORY: No significant familial comorbid conditions directly related to patient complaint EXAM: Reviewed vital signs as charted by RN. CONSTITUTIONAL: Alert and oriented and responds appropriately to questions. Well-appearing; well-nourished HEAD: Normocephalic; atraumatic EYES: PERRL; Conjunctivae clear, sclerae non-icteric ENT: normal nose; no rhinorrhea; moist mucous membranes; pharynx without lesions noted, no uvula edema or deviation, no tonsillar hypertrophy, phonation normal NECK: Supple without meningismus; non-tender; no cervical lymphadenopathy, no masses CARD: RRR; no murmurs, no clicks, no rubs, no gallops; symmetric distal pulses RESP: Normal chest excursion without splinting or tachypnea; breath sounds clear and equal bilaterally; no wheezes, no rhonchi, no rales, pulse oximetry 96% on room air not hypoxic ABD/GI: Normal bowel sounds; non-distended; soft, non-tender, no rebound, no guarding; no palpable organomegaly or masses. BACK: The back appears normal and is non-tender to palpation, there is no CVA tenderness EXT: Normal ROM in all joints; non-tender to palpation; no cyanosis, no effusions, no edema SKIN: Normal color for age and race; warm; dry; good turgor; no acute lesions noted NEURO: Moves all extremities equally; Motor and sensory function intact PSYCH: The patient's mood and manner are appropriate. Grooming and personal hygiene are appropriate. MDM: 79-year-old female presenting for shortness of breath. Patient believes her asthma is acting up. Use her inhaler twice at home was given 2 DuoNeb's here on arrival as well as Solu-Medrol 125 mg by EMS. Patient lung sounds are clear at the moment, she does not become dyspneic with speaking. She is not hypoxic on room air. Given her age and history will obtain 1 set of screening cardiac labs. TRAVEL OUTSIDE OF THE [place] IN LAST 30 DAYS: No - Related Data Allergies/Adverse Reactions: latex [Latex] Allergy (Intermediate, Verified 02/02/20 02:11) ITCHING levofloxacin [From Levaquin] Allergy (Unknown, Verified 02/02/20 02:11) saccharin Allergy (Verified 02/02/20 02:11) Penicillins Adverse Reaction (Mild, Verified 02/02/20 02:11) Yeast infections ibuprofen [From Motrin] Adverse Reaction (Verified 02/02/20 02:11) Past Medical History - Social History Smoking Status: Former Smoker Frequency of alcohol use: None Drug Abuse: None Family History: Reviewed & Not Pertinent, DM, Hypertension, Malignancy Patient has homicidal ideation: No - Past Medical History Cardiac Medical History: Reports: Hx Heart Attack - nonstemi 2018, Hx Hypercholesterolemia, Hx Hypertension Denies: Hx Congestive Heart Failure, Hx Coronary Artery Disease, Hx Pulmonary Embolism Pulmonary Medical History: Reports: Hx Asthma, Hx Bronchitis, Hx Pneumonia Comment Only: Hx COPD - States she has not been diagnosed with COPD Neurological Medical History: Denies: Hx Cerebrovascular Accident, Hx Migraine, Hx Seizures Renal/ Medical History: Denies: Hx Peritoneal Dialysis GI Medical History: Reports: Hx Gastroesophageal Reflux Disease, Hx Hiatal Hernia. Denies: Hx Hepatitis, Hx Ulcer Musculoskeletal Medical History: Reports Hx Arthritis Psychiatric Medical History: Reports: Hx Depression - on occassion Infectious Medical History: Denies: Hx Hepatitis Past Surgical History: Reports: Hx Abdominal Surgery - ODELL, Hx Appendectomy, Hx Orthopedic Surgery, Hx Tonsillectomy. Denies: Hx Hysterectomy, Hx Mastectomy, Hx Open Heart Surgery, Hx Pacemaker - Immunizations Hx Diphtheria, Pertussis, Tetanus Vaccination: No Hx Pneumococcal Vaccination: 07/10/15 Physical Exam - Vital signs Vitals: Pulse Ox 96 02/02/20 02:04 Course - Re-evaluation Re-evalutation: 02/02/20 04:20 Patient troponin 0.055. Patient's last troponins of record are all less than 0.012. As there may be a cardiac component to this and patient does have risk factors including prior N STEMI will discuss with her primary care provider Dr. Bai for admission. She is seen Dr. Trujillo cardiology previously. discussed with Dr. Booker Attending 02/02/20 04:[address] Bai, patient PCP 02/02/20 04:48 Have placed second page to Dr. Russell Bai, patient PCP for admission 02/02/20 05:24 have placed 3rd page to Dr. Bai 02/02/20 05:[address] Florence. covering for Dr. Bai. Case discussed, admit to [facility] his service - Vital Signs Vital signs: Temp Pulse Resp BP Pulse Ox 98.0 F 31 H 125/86 H 98 02/02/20 02:11 02/02/20 03:01 02/02/20 03:01 02/02/20 03:13 - Laboratory Result Diagrams: 02/02/20 03:23 02/02/20 03:23 Laboratory results interpreted by me: 02/02/20 02/02/20 02/02/20 02:55 03:23 03:23 Lymph % (Auto) 12.3 L Seg Neutrophils % 81.3 H Sodium 132.6 L Glucose 124 H AST 37 H NT-Pro-B Natriuret Pep Urine Protein 100 H Urine Ketones 20 H Urine Blood SMALL H Ur Leukocyte Esterase SMALL H 02/02/20 03:23 Lymph % (Auto) Seg Neutrophils % Sodium Glucose AST NT-Pro-B Natriuret Pep 506 H Urine Protein Urine Ketones Urine Blood Ur Leukocyte Esterase Discharge - Discharge Clinical Impression: Shortness of breath, Troponin level elevated Condition: Stable Disposition: ADMITTED INPATIENT Admitting Provider: [facility] Unit Admitted: IM Referrals: ROSHAN RUBI PA-C [Primary Care Provider] - Follow up as needed
[2020-02-02 03:32] LABS: ABSOLUTE BASOPHILS # (AUTO) 0.1 10^3/uL (0.0-0.2); ABSOLUTE LYMPHOCYTES (AUTO) 0.7 10^3/uL (0.5-4.7); ABSOLUTE MONOCYTES (AUTO) 0.3 10^3/uL (0.1-1.4); ABSOLUTE NEUT (AUTO) 4.3 10^3/uL (1.7-8.2); EOSINOPHILS % (AUTO) 0.4 % (0-6); HEMATOCRIT 36.5 % (36.0-47.0); HEMOGLOBIN 12.4 g/dL (12.0-15.5); LYMPHOCYTES % (AUTO) 12.3 % (13-45); MEAN CORPUSCULAR HEMOGLOBIN 29.6 pg (27.0-33.4); MEAN CORPUSCULAR VOLUME 87 fl (80-97); PLATELET COUNT 218 10^3/uL (150-450); SEGMENTED NEUTROPHILS % (AUTO) 81.3 % (42-78); TOTAL CELLS COUNTED % (AUTO) 100 %; WHITE BLOOD COUNT 5.3 10^3/uL (4.0-10.5)
[2020-02-02 03:48] LABS: ALBUMIN 3.9 g/dL (3.5-5.0); ALKALINE PHOSPHATASE 59 U/L (38-126); ANION GAP 8 (5-19); ASPARTATE AMINO TRANSFERASE 37 U/L (14-36); BILIRUBIN,TOTAL 0.5 mg/dL (0.2-1.3); BLOOD UREA NITROGEN 10 mg/dL (7-20); CALCIUM 9.4 mg/dL (8.4-10.2); CARBON DIOXIDE 24 mmol/L (22-30); CHLORIDE 101 mmol/L (98-107); GLUCOSE 124 mg/dL (75-110); POTASSIUM 3.9 mmol/L (3.6-5.0); TOTAL PROTEIN 6.4 g/dL (6.3-8.2)
--- NOTE | 2020-02-02 03:49 | RADIOLOGY REPORT (SQ) ---
EXAM DESCRIPTION: XR CHEST 1 VIEW COMPLETED DATE/TME: 02/02/2020 02:19 CLINICAL HISTORY: 79 years, Female, SOB COMPARISON: 07/23/2019 chest NUMBER OF VIEWS: 1 TECHNIQUE: Portable chest LIMITATIONS: None. FINDINGS: Heart size is grossly stable. Herniation of abdominal contents into the right hemithorax, as before. Osteopenia. Lungs are otherwise clear. No pneumothorax. IMPRESSION: No acute cardiopulmonary process copyright 2010 [employer]- All Rights Reserved
[2020-02-02 04:03] LABS: TROPONIN I 0.055 ng/mL
[2020-02-02 04:05] LABS: APPEARANCE,URINE SLIGHTLY-CLOUDY; BILIRUBIN,URINE NEGATIVE (NEGATIVE); COLOR,URINE YELLOW; GLUCOSE, URINE NEGATIVE (NEGATIVE); KETONES,URINE 20 mg/dL (NEGATIVE); LEUKOCYTE ESTERASE,URINE SMALL (NEGATIVE); NITRITE,URINE NEGATIVE (NEGATIVE); PROTEIN,URINE 100 mg/dL (NEGATIVE); URINE SPECIFIC GRAVITY 1.024; UROBILINOGEN,URINE NEGATIVE mg/dL (<2.0)
[2020-02-02] MEDS ORDERED: ASPIRIN 81 MG TABLET, CHEWABLE PO ONE (04:07)
[2020-02-02] MEDS ORDERED: IPRATROPIUM/ALBUTEROL 0.5-2.5 MG/3 ML AMPUL NEB ONE (05:49)
--- NOTE | 2020-02-02 07:24 | EKG REPORT ---
SEVERITY:- ABNORMAL ECG - SINUS TACHYCARDIA OLD ANTEROSEPTAL ND NONSPECIFIC ST-T CHANGES ANTEROLATERAL LEADS. : Confirmed by: Mohsen You MD 02-Feb-2020 07:23:49
[2020-02-02] MEDS ORDERED: ONDANSETRON HCL INJ/PF 4 MG/2 ML SDV IV PRN (08:17)
[2020-02-02] MEDS ORDERED: ACETAMINOPHEN 325 MG TABLET PO PRN (08:17)
[2020-02-02 09:09] LABS: ANION GAP 8 (5-19); BLOOD UREA NITROGEN 12 mg/dL (7-20); CALCIUM 9.3 mg/dL (8.4-10.2); CARBON DIOXIDE 21 mmol/L (22-30); CHLORIDE 101 mmol/L (98-107); CREATINE KINASE 57 U/L (30-135); GLUCOSE 138 mg/dL (75-110); POTASSIUM 4.6 mmol/L (3.6-5.0)
[2020-02-02 09:20] LABS: CREATINE KINASE MB 2.71 ng/mL (<4.55)
[2020-02-02 09:31] LABS: TROPONIN I 0.295 ng/mL
--- NOTE | 2020-02-02 10:16 | PDOC H&P ---
History of Present Illness Admission Date/PCP: 02/02/20 05:42 ROSHAN RUBI PA-C Patient complains of: Shortness of the breath History of Present Illness: BHUPINDER Walsh LADUE is a 79 year old female This is 79-year-old female's with a history of the hypertension COPD asthma history of the hiatal hernia and a history of coronary artery disease and multiple other medical problems came to the emergency department with the complaint of shortness of the breathSince last several days getting more worse and patient started probably asthma issues which patient always have issue with that Patient's denied any contact with any COVID person denied any fever no chest pa in but patient's complaint was some pain in her esophagus area which patient always have that from usual hiatal hernia Patient is also complaining some abdominal discomfort on and off recently patient have a loose stool then develop a constipations Patient's denied any blood in the stools no black stools Patient denied any headache In the emergency department patient EKG showed some sinus tachycardia and patient's troponin was initially was 0.055 and second 1 is 0.164When I saw the patient in the floor patient's denied any chest pain denied any shortness of the breath Discussed with the Dr. HUNTLEY cardiology regarding elevated troponin suggest to order the CT angiogram to rule out any PE We will start the patient on a full dose Lovenox aspirin and beta- blockerPresumed non-ST OR until the full cardiac evaluations done Discussed with the Dr. HUNTLEY he will see the patient's today to further evaluate Patient is want to be a DNR/DNI patient understand very well Patient also have a huge hiatal hernia with the paraesophageal surgery required but patient's have a serious kyphoscoliosis with pulmonary disease underlying coronary disease surgery currently referred to medical management Past Medical History Cardiac Medical History: Reports: Coronary Artery Disease, Myocardial Infarction - nonstemi 2018, Hyperlipidema, Hypertension Denies: Congestive Heart Failure, Pulmonary Embolism Pulmonary Medical History: Reports: Asthma, Bronchitis, Pneumonia Comment Only: Chronic Obstructive Pulmonary Disease (COPD) - States she has not been diagnosed with COPD Neurological Medical History: Denies: Migraine, Seizures GI Medical History: Reports: Gastroesophageal Reflux Disease, Hiatal Hernia Denies: Hepatitis Musculoskeltal Medical History: Reports: Arthritis Psychiatric Medical History: Reports: Depression - on occassion Hematology: Reports: Anemia Denies: Sickle Cell Disease Past Surgical History Past Surgical History: Reports: Appendectomy, Orthopedic Surgery, Tonsillectomy Denies: Amputation, Hysterectomy, Mastectomy, Pacemaker Social History Information Source: Patient Smoking Status: Never Smoker Frequency of Alcohol Use: Occasional Hx Recreational Drug Use: No Drugs: None Hx Prescription Drug Abuse: No Family History Family History: Reviewed & Not Pertinent, DM, Hypertension, Malignancy Parental Family History Reviewed: Yes Children Family History Reviewed: Yes Sibling(s) Family History Reviewed.: Yes Medication/Allergy Home Medications: Albuterol Sulfate [Ventolin 0.083% Neb 2.5 mg/3 mL Ampul] 1 vial NEB [id number] PRN 07/23/19 Albuterol Sulfate [Ventolin Hfa 8 gm Mdi (1 Mdi/ER Disp)] 2 puff IH Q4 07/23/19 Aspirin [Adult Low Dose Aspirin EC] 81 mg PO DAILY 07/23/19 Atorvastatin Calcium [Lipitor 20 mg Tablet] 20 mg PO QHS 07/23/19 Benzonatate [Tessalon Perles 100 mg Capsule] 100 mg PO Q8HP PRN 07/23/19 Fluticasone/Salmeterol [Advair 500-50 Diskus 14 Dose/Diskus] 1 puff IH BID 07/23/19 Losartan Potassium [Cozaar 100 mg Tablet] 100 mg PO DAILY 07/23/19 Metoprolol Succinate [Toprol Xl 25 mg Tab.sr] 25 mg PO Q12 07/23/19 Mirabegron [Myrbetriq] 25 mg PO DAILY 07/23/19 Montelukast Sodium [Singulair 10 mg Tablet] 10 mg PO QHS 07/23/19 Nitroglycerin [Nitro-Dur 5 mg (0.2 mg/Hr) Transdermal Patch] 1 each TD DAILY 07/23/19 Olopatadine HCl [Patanol 0.1% Oph Soln 5 ml] 1 drop OU BID 07/23/19 Omeprazole 20 mg PO DAILY 07/23/19 Ranitidine HCl [Zantac] 300 mg PO DAILY 07/23/19 Thiamine Mononitrate [Vitamin B-1] 100 mg PO DAILY 07/23/19 Cefuroxime Axetil [Ceftin 500 mg Tablet] 1 tab PO BID #14 tablet 07/28/19 Guaifenesin [Mucinex Sr 600 mg Tablet.sa] 600 mg PO BID #60 tablet.sa 07/28/19 Allergies/Adverse Reactions: latex [Latex] Allergy (Intermediate, Verified 02/02/20 02:11) ITCHING levofloxacin [From Levaquin] Allergy (Unknown, Verified 02/02/20 02:11) saccharin Allergy (Verified 02/02/20 02:11) Penicillins Adverse Reaction (Mild, Verified 02/02/20 02:11) Yeast infections ibuprofen [From Motrin] Adverse Reaction (Verified 02/02/20 02:11) Review of Systems Constitutional: ABSENT: chills, fever(s), headache(s), weight gain, weight loss Eyes: ABSENT: visual disturbances Ears: ABSENT: hearing changes Cardiovascular: PRESENT: dyspnea on exertion. ABSENT: chest pain, edema, orthropnea, palpitations Respiratory: PRESENT: dyspnea. ABSENT: cough, hemoptysis Gastrointestinal: ABSENT: abdominal pain, constipation, diarrhea, hematemesis, hematochezia, nausea, vomiting Genitourinary: ABSENT: dysuria, hematuria Musculoskeletal: ABSENT: joint swelling Integumentary: ABSENT: rash, wounds Neurological: ABSENT: abnormal gait, abnormal speech, confusion, dizziness, focal weakness, syncope Psychiatric: ABSENT: anxiety, depression, homidical ideation, suicidal ideation Endocrine: ABSENT: cold intolerance, heat intolerance, menstrual abnormalities, polydipsia, polyuria Hematologic/Lymphatic: ABSENT: easy bleeding, easy bruising, lymphadenopathy Physical Exam Vital Signs: Temp Pulse Resp BP Pulse Ox 98.4 F 99 22 H 125/90 H 98 02/02/20 08:07 02/02/20 08:33 02/02/20 08:07 02/02/20 08:07 02/02/20 08:07 Intake & Output 02/01/20 02/02/20 02/03/20 06:59 06:59 06:59 Weight 61 kg General appearance: PRESENT: no acute distress, well-developed, well-nourished Head exam: PRESENT: atraumatic, normocephalic Eye exam: PRESENT: conjunctiva pink, EOMI, PERRLA. ABSENT: scleral icterus Ear exam: PRESENT: normal external ear exam Mouth exam: PRESENT: moist, tongue midline Neck exam: PRESENT: full ROM. ABSENT: carotid bruit, JVD, lymphadenopathy, thyromegaly Respiratory exam: PRESENT: clear to auscultation candelario Cardiovascular exam: PRESENT: RRR. ABSENT: diastolic murmur, rubs, systolic murmur Pulses: PRESENT: normal dorsalis pedis pul, +2 pedal pulses bilateral Vascular exam: PRESENT: normal capillary refill GI/Abdominal exam: PRESENT: normal bowel sounds, soft. ABSENT: distended, guarding, mass, organolmegaly, rebound, tenderness Rectal exam: PRESENT: deferred Neurological exam: PRESENT: alert, awake, oriented to person, oriented to place, oriented to time, oriented to situation, CN II-XII grossly intact. ABSENT: motor sensory deficit Psychiatric exam: PRESENT: appropriate affect, normal mood. ABSENT: homicidal ideation, suicidal ideation Skin exam: PRESENT: dry, intact, warm. ABSENT: cyanosis, rash Results Laboratory Results: 02/02/20 03:23 02/02/20 08:45 02/02/20 02/02/20 02/02/20 02:55 03:23 03:23 WBC 5.3 RBC 4.20 Hgb 12.4 Hct 36.5 MCV 87 MCH 29.6 MCHC 34.0 RDW 14.0 Plt Count 218 Seg Neutrophils % 81.3 H Sodium 132.6 L Potassium 3.9 Chloride 101 Carbon Dioxide 24 Anion Gap 8 BUN 10 Creatinine 0.57 Est GFR ( Amer) > 60 Glucose 124 H Calcium 9.4 Magnesium 2.0 Total Bilirubin 0.5 AST 37 H Alkaline Phosphatase 59 Total Protein 6.4 Albumin 3.9 Urine Color YELLOW Urine Appearance SLIGHTLY-CLOUDY Urine pH 5.0 Ur Specific [place] 1.024 Urine Protein 100 H Urine Glucose (UA) NEGATIVE Urine Ketones 20 H Urine Blood SMALL H Urine Nitrite NEGATIVE Ur Leukocyte Esterase SMALL H Urine WBC (Auto) 14 Urine RBC (Auto) 6 02/02/20 08:45 WBC RBC Hgb Hct MCV MCH MCHC RDW Plt Count Seg Neutrophils % Sodium 130.0 L Potassium 4.6 Chloride 101 Carbon Dioxide 21 L Anion Gap 8 BUN 12 Creatinine 0.46 L Est GFR ( Amer) > 60 Glucose 138 H Calcium 9.3 Magnesium Total Bilirubin AST Alkaline Phosphatase Total Protein Albumin Urine Color Urine Appearance Urine pH Ur Specific [place] Urine Protein Urine Glucose (UA) Urine Ketones Urine Blood Urine Nitrite Ur Leukocyte Esterase Urine WBC (Auto) Urine RBC (Auto) 02/02/20 02/02/20 02/02/20 03:23 06:31 08:45 Creatine Kinase 57 CK-MB (CK-2) Troponin I 0.055 0.164 NT-Pro-B Natriuret Pep 506 H 02/02/20 08:45 Creatine Kinase CK-MB (CK-2) 2.71 Troponin I 0.295 NT-Pro-B Natriuret Pep Impressions: Chest X-Ray 02/02/20 02:19 IMPRESSION: No acute cardiopulmonary process copyright 2011 [employer]- All Rights Reserved Assessment & Plan - Diagnosis (1) Shortness of breath Is this a current diagnosis for this admission?: Yes Plan: With multiple etiologies including the underlying asthma COPD with a non-ST OR as per discussed with the cardiology will order the CT angiogram to rule out other etiology continues to monitor the patient's (2) Troponin level elevated Is this a current diagnosis for this admission?: Yes Plan: Could be underlying non-ST OR will put the patient on aspirin Lovenox beta- montrell follow with the cardiology (3) Asthma exacerbation Qualifiers: Asthma severity: mild Is this a current diagnosis for this admission?: Yes Plan: Continues on nebulizer treatments currently lungs sound is very clear (4) Coronary artery disease Qualifiers: Coronary Disease-Associated Artery/Lesion type: [place] artery Associated a ngina: without angina Is this a current diagnosis for this admission?: Yes Plan: To the serial EKG continues to monitor follow with cardiology (5) Gastroesophageal reflux Qualifiers: Esophagitis presence: without esophagitis Is this a current diagnosis for this admission?: Yes Plan: Will continues the Protonix (6) Hyperlipidemia Qualifiers: Hyperlipidemia type: unspecified Is this a current diagnosis for this admission?: Yes (7) Hypertension Qualifiers: Hypertension type: essential hypertension Is this a current diagnosis for this admission?: Yes Plan: Continues to current medications (8) Paraesophageal hiatal hernia Is this a current diagnosis for this admission?: Yes Plan: We will get the CT scan of the abdomen and pelvis (9) Scoliosis (and kyphoscoliosis), idiopathic Is this a current diagnosis for this admission?: Yes - Time Time Spent: 50 to 70 Minutes Medications reviewed and adjusted accordingly: Yes Anticipated discharge: Home Within: Other - Inpatient Certification Based on my medical assessment, after consideration of the patient's comorbidities, presenting symptoms, or acuity I expect that the services needed warrant INPATIENT care.: Yes Medical Necessity: Failure to Improve With Outpatient Therapy, Significant Comorbidiites Make Outpatient Treatment Too Risky, Need Close Monitoring Due to Risk of Patient Decompensation, Need for Nebulizer Therapy and Monitoring of Response Post Hospital Care: D/C Neurosurgery Research Director Documentation - Plan Summary Plan Summary: Admit the patient in IMCU cussed with the coordinate care with the cardiology discussed with the patient's were extensively regarding the all the case reports including the elevated troponin and patient understand very well patient is expressed DNR/DNI
--- NOTE | 2020-02-02 10:18 | RADIOLOGY REPORT (SQ) ---
EXAM DESCRIPTION: CT ABD/PELVIS NO ORAL OR IV IMAGES COMPLETED DATE/TIME: 02/02/2020 9:48 am REASON FOR STUDY: abd pain COMPARISON: CT of the abdomen and pelvis without contrast from 06/14/2018 TECHNIQUE: CT scan of the abdomen and pelvis performed without intravenous or oral contrast. Images reviewed with lung, soft tissue, and bone windows. Reconstructed coronal and sagittal MPR images revi ewed. All images stored on PACS. All CT scanners at this facility use dose modulation, iterative reconstruction, and/or weight based d osing when appropriate to reduce radiation dose to as low as reasonably achievable (ALARA). [facility]: Dose Right [facility]: CareDose [facility]: Dose Right [facility]: Teradose 4D [facility]: [employer] RADIATION DOSE: CT Rad equipment meets quality standard of care and radiation dose reduction techniq ues were employed. CTDIvol: 6.0 mGy. DLP: 276 mGy-cm. LIMITATIONS: None. FINDINGS: LOWER CHEST: Cardiomegaly, chronic strands of atelectasis or scar in the lower lobes, and volume loss in the right middle lobe. NON-CONTRASTED LIVER, SPLEEN, ADRENALS: Evaluation is limited due to the absence of intravenous contr ast. There is no evidence of hepatic steatosis. The spleen is normal in size. There is a 2 x 1.5 c m left adrenal nodule that is stable in size compared to the CT from 06/14/2018. PANCREAS: No acute gross abnormality of the pancreas. GALLBLADDER: No abnormality that is apparent on CT. RIGHT KIDNEY AND URETER: Evaluation is limited due to the absence of intravenous contrast. There is no hydronephrosis, nephrolithiasis, hydroureter or ureterolithiasis. LEFT KIDNEY AND URETER: Evaluation is limited due to the absence of intravenous contrast. There is a partially exophytic 2.5 x 1.8 cm cyst in the lateral cortex of the kidney. There is no hydronephros is, nephrolithiasis, hydroureter or ureterolithiasis. AORTA AND RETROPERITONEUM: No aneurysm of the abdominal aorta. No retroperitoneal adenopathy, hemorr saurav or mass. 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 There is colonic diverticulosis without diverticulitis. There is no bowel obstruction, fara wel wall thickening or pericolonic/ perienteric inflammation. There is no mesenteric adenopathy, vi e intraperitoneal fluid or mesenteric/ omental inflammation. APPENDIX: Unable to identify the appendix. PELVIS, BLADDER, AND ABDOMINAL WALL:Pessary ring in place. The urinary bladder is contracted. There is a 2.2 x 2 cm round cystic lesion in the left adnexum (image 56 of series 2). There is re- demons tration of a calcified uterine fibroid that measures 5.9 x 4.4 cm. There is no abnormality of the ri ght adnexum that is apparent on CT. BONES: Chronic compression deformities of the superior endplates of the L2 and L3 vertebral bodies an d chronic grade 1 anterolisthesis of L5 relative to S1. OTHER: Hiatal hernia. IMPRESSION: 1. No acute intra-abdominal abnormality. 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 3. Colonic diverticulosis without diverticulitis. 4. 2.2 x 2 cm round cystic lesion in the left adnexum (image 56 of series 2). Given the age of the patient correlation with an ultrasound is recommended. 5. Stable left adrenal nodule that measures 2 x 1.5 cm. COMMENT: Quality ID # [id number]: Final reports with documentation of one or more dose reduction techniques (e.g., Automated exposure control, adjustment of the mA and/or kV according to patient size, use of iterative reconstruction technique) TECHNICAL DOCUMENTATION: JOB ID: [id number] 2010 [employer]- All Rights Reserved Reading location - IP/workstation name: [email or web address]
[2020-02-02] MEDS: ENOXAPARIN SODIUM INJ 60 MG/0.6 ML DISP.SYRIN SUBCUT SCH ×2 (10:42→23:57)
[2020-02-02] MEDS: PANTOPRAZOLE SODIUM 40 MG VIAL IV SCH ×2 (10:43→23:58)
[2020-02-02] MEDS: ASPIRIN 325 MG TABLET PO SCH (10:43)
[2020-02-02] MEDS: DOCUSATE SODIUM 100 MG CAPSULE PO SCH ×2 (10:43→17:17)
[2020-02-02] MEDS: MAG HYDROX/AL HYDROX/SIMETH SUSP 30 ML UDCUP PO PRN ×2 (10:54→18:35)
[2020-02-02] MEDS: METHYLPREDNISOLONE INJ 40 MG/1 ML SDV IV SCH ×2 (12:52→17:21)
[2020-02-02] MEDS: SIMETHICONE 80 MG TAB.CHEW PO SCH ×2 (12:52→17:17)
[2020-02-02] MEDS: IPRATROPIUM/ALBUTEROL 0.5-2.5 MG/3 ML AMPUL NEB SCH ×4 (13:47→19:55)
[2020-02-02] MEDS ORDERED: IPRATROPIUM/ALBUTEROL 0.5-2.5 MG/3 ML AMPUL NEB SCH (14:00)
[2020-02-02] MEDS: IPRATROPIUM/ALBUTEROL 0.5-2.5 MG/3 ML AMPUL NEB PRN (14:13)
--- NOTE | 2020-02-02 14:35 | RADIOLOGY REPORT (SQ) ---
EXAM DESCRIPTION: CTA CHEST IMAGES COMPLETED DATE/TIME: 02/02/2020 1:56 pm REASON FOR STUDY: sob COMPARISON: CT of the chest with contrast from 07/23/[address] of the abdomen pelvis with contrast from 07/23/2019. TECHNIQUE: CT scan of the chest performed using helical scanning technique with dynamic intravenous contrast injection. Images reviewed with lung, soft tissue and bone windows. Reconstructed coronal and sagittal MPR images reviewed. Additional 3 dimensional post-processing performed to develop Maximal Intensity Projection images (MD P). All images stored on PACS. All CT scanners at this facility use dose modulation, iterative reconstruction, and/or weight based d osing when appropriate to reduce radiation dose to as low as reasonably achievable (ALARA). [facility]: Dose Right [facility]: CareDose [facility]: Dose Right [facility]: Teradose 4D [facility]: SalonBookr CONTRAST TYPE AND DOSE: Contrast/concentration: Isovue 350.00 mg/ml; Total Contrast Delivered: 47.0 ml; Total Saline Delivered: 77.0 ml Contrast bolus optimized for the pulmonary arteries. RENAL FUNCTION: Creatinine 0.46 mg/dl. RADIATION DOSE: CT Rad equipment meets quality standard of care and radiation dose reduction techniq ues were employed. CTDIvol: 7.5 - 12.6 mGy. DLP: 444 mGy-cm. LIMITATIONS: None. 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 The opacities in the right middle lobe, lingula and lower lobes are unchanged. There is no acute consolidation, ground-glass opacification, pleural effusion or pne umothorax. AORTA AND GREAT VESSELS: Evaluation is limited since the contrast bolus was optimized for evaluation of the pulmonary arteries. There is no thoracic aortic aneurysm. HEART: Cardiomegaly and mild atherosclerotic calcification of the coronary arteries. The reflux of t he contrast into the IVC and hepatic veins is suggestive of underlying right cardiac dysfunction. Th ere is no pericardial effusion. PULMONARY ARTERIES: No emboli. HILAR AND MEDIASTINAL STRUCTURES: Hiatal hernia. There is no mediastinal/ hilar adenopathy or mass. HARDWARE: None in the chest. UPPER ABDOMEN: Refer to the separate report of the CT of the abdomen. THYROID AND OTHER SOFT TISSUES: No adenopathy or mass. BONES: No acute fracture or osseous lesion. 3D MIPS: Confirm above findings. OTHER: No other finding. IMPRESSION: 1. No pulmonary emboli. 2. Other nonemergent findings as above. COMMENT: Quality ID # [id number]: Final reports with documentation of one or more dose reduction techniques (e.g., Automated exposure control, adjustment of the mA and/or kV according to patient size, use of iterative reconstruction technique) TECHNICAL DOCUMENTATION: JOB ID: [id number] 2010 [employer]- All Rights Reserved Reading location - IP/workstation name: [email or web address]
[2020-02-02 16:09] LABS: CREATINE KINASE MB 4.57 ng/mL (<4.55)
[2020-02-02 16:12] LABS: TROPONIN I 0.785 ng/mL
[2020-02-02] MEDS: GUAIFENESIN 600 MG TABLET.SA PO SCH (17:17)
[2020-02-02] MEDS: NITROGLYCERIN 2% OINTMENT 1 GM PACKET TP SCH (17:21)
[2020-02-02] MEDS ORDERED: LORAZEPAM 0.5 MG TABLET SL ONE (21:00)
[2020-02-02] MEDS ORDERED: DILTIAZEM HCL INJ 25 MG/5 ML VIAL ONE (21:02)
[2020-02-02] MEDS ORDERED: DILTIAZEM HCL/D5W 125 MG/125 ML RTUINJ IV ONE (21:15)
[2020-02-02] MEDS ORDERED: DILTIAZEM HCL/D5W 125 MG/125 ML RTUINJ IV PRN (21:26)
[2020-02-02] MEDS ORDERED: DILTIAZEM HCL INJ 25 MG/5 ML VIAL IV ONE (21:45)
[2020-02-02] MEDS ORDERED: METOPROLOL TARTRATE 25 MG TABLET PO SCH (22:00)
[2020-02-02 22:41] LABS: CREATINE KINASE MB 4.82 ng/mL (<4.55); TROPONIN I 0.763 ng/mL
[2020-02-02 22:48] LABS: ARTERIAL BLOOD BASE EXCESS -4.8 mmol/L; ARTERIAL BLOOD H2CO3 1.14 mmol/L (1.05-1.35); ARTERIAL BLOOD HCO3 20.3 mmol/L (20-24); ARTERIAL BLOOD O2 SATURATION 92.1 % (94-98); ARTERIAL BLOOD PCO2 37.8 mmHg (35-45); ARTERIAL BLOOD PH 7.35 (7.35-7.45); ARTERIAL BLOOD PO2 65.5 mmHg (80-100); ARTERIAL BLOOD TOTAL CO2 21.5 mmol/L (21-25)
[2020-02-02 22:55] LABS: ARTERIAL BLOOD FIO2 4L
--- NOTE | 2020-02-02 23:35 | RADIOLOGY REPORT (SQ) ---
EXAM DESCRIPTION: XR CHEST 1 VIEW COMPLETED DATE/TME: 02/02/2020 00:00 CLINICAL HISTORY: 79 years, Female, sob COMPARISON: 02/02/2020 chest x-ray at 3:07 AM NUMBER OF VIEWS: 1 TECHNIQUE: Portable chest LIMITATIONS: None. FINDINGS: Heart is enlarged but stable. 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 Atheromatous change thoracic aorta. No pneumothorax. Osteopenia. Minimal scarring left lung base. IMPRESSION: Stable chest, as above copyright 2010 [employer]- All Rights Reserved
[2020-02-02] MEDS: MONTELUKAST SODIUM 10 MG TABLET PO SCH (23:59)
[2020-02-03] MEDS: NITROGLYCERIN 2% OINTMENT 1 GM PACKET TP SCH (00:30)
[2020-02-03] MEDS ORDERED: LORAZEPAM INJ 2 MG/1 ML VIAL ONE (06:57)
[2020-02-03] MEDS ORDERED: DIGOXIN INJ 0.5 MG/2 ML AMPULE ONE (06:57)
[2020-02-03] MEDS: IPRATROPIUM/ALBUTEROL 0.5-2.5 MG/3 ML AMPUL NEB SCH ×4 (07:00→20:07)
[2020-02-03] MEDS ORDERED: LORAZEPAM INJ 2 MG/1 ML VIAL IV ONE (07:15)
[2020-02-03] MEDS ORDERED: DIGOXIN INJ 0.5 MG/2 ML AMPULE IV ONE (07:15)
[2020-02-03 07:17] LABS: ABSOLUTE BASOPHILS # (AUTO) 0.1 10^3/uL (0.0-0.2); ABSOLUTE LYMPHOCYTES (AUTO) 1.2 10^3/uL (0.5-4.7); ABSOLUTE MONOCYTES (AUTO) 1.6 10^3/uL (0.1-1.4); ABSOLUTE NEUT (AUTO) 16.6 10^3/uL (1.7-8.2); BASOPHILS % (AUTO) 0.5 % (0-2); HEMATOCRIT 39.7 % (36.0-47.0); HEMOGLOBIN 13.4 g/dL (12.0-15.5); MEAN CORPUSCULAR HEMOGLOBIN 29.1 pg (27.0-33.4); MEAN CORPUSCULAR HGB CONC 33.9 g/dL (32.0-36.0); MEAN CORPUSCULAR VOLUME 86 fl (80-97); MONOCYTES % (AUTO) 8.4 % (3-13); PLATELET COUNT 289 10^3/uL (150-450); RED BLOOD COUNT 4.63 10^6/uL (3.72-5.28); SEGMENTED NEUTROPHILS % (AUTO) 85.1 % (42-78); TOTAL CELLS COUNTED % (AUTO) 100 %
[2020-02-03 07:18] LABS: WHITE BLOOD COUNT 19.5 10^3/uL (4.0-10.5)
[2020-02-03 07:19] LABS: ANION GAP 7 (5-19); BLOOD UREA NITROGEN 19 mg/dL (7-20); CARBON DIOXIDE 25 mmol/L (22-30); CHLORIDE 97 mmol/L (98-107); GLUCOSE 113 mg/dL (75-110); POTASSIUM 4.8 mmol/L (3.6-5.0)
--- NOTE | 2020-02-03 07:26 | EKG REPORT ---
SEVERITY:- ABNORMAL ECG - SINUS TACHYCARDIA RIGHT ATRIAL ABNORMALITY REPOL ABNRM SUGGESTS ISCHEMIA, ANT-LAT LEADS : Confirmed by: Mohsen You MD 03-Feb-2020 07:25:47
--- NOTE | 2020-02-03 07:27 | EKG REPORT ---
SEVERITY:- ABNORMAL ECG - SUPRAVENTRICULAR TACHYCARDIA CONSIDER ANTEROSEPTAL INFARCT REPOLARIZATION ABNORMALITY, PROB RATE RELATED : Confirmed by: Mohsen You MD 03-Feb-2020 07:27:03
--- NOTE | 2020-02-03 07:27 | EKG REPORT ---
SEVERITY:- ABNORMAL ECG - SINUS RHYTHM ABNORMAL T, CONSIDER ISCHEMIA, BEVERLY LATERAL LEADS PROLONGED QT INTERVAL : Confirmed by: Mohsen You MD 03-Feb-2020 07:26:39
[2020-02-03 09:06] LABS: ARTERIAL BLOOD BASE EXCESS 0.9 mmol/L; ARTERIAL BLOOD HCO3 25.4 mmol/L (20-24); ARTERIAL BLOOD PCO2 39.9 mmHg (35-45); ARTERIAL BLOOD PH 7.42 (7.35-7.45); ARTERIAL BLOOD PO2 107.6 mmHg (80-100); ARTERIAL BLOOD TOTAL CO2 26.6 mmol/L (21-25)
[2020-02-03 09:07] LABS: ARTERIAL BLOOD FIO2 100%
[2020-02-03] MEDS: SIMETHICONE 80 MG TAB.CHEW PO SCH ×3 (09:08→18:03)
--- NOTE | 2020-02-03 09:24 | PDOC PROGRESS REPORT ---
Subjective Progress Note for:: 02/03/20 Subjective:: Patient's progressively more worse since last 24 hours Patients have a supraventricular tachycardia type II myocardial infections and hypoxia seen by the cardiology adjust the medications Patient is progressively more worse with the more require oxygen's currently on a nonrebreather and alter CT angiogram yesterday was done for negative for PE but significant patient of a parasacral hernia which ongoing problems Patient's express herself yesterday's and before absolutely DNR and DNI Patient usually only emergency number is aidan farris which I spoke with herToday regarding the patient's current conditions with the poor prognosis [facility] patients have only 1 son but I do not think so patients talk to him also try to contact him left a message and patient according to the emergency contact number she does not talk to any other family member and I think that she expressed herself to me in the past that she only Communicate with the Abee Which I know her very well At this point patient is currently on a nonrebreather continues the current treatment discussed with the skip hoist operator and suggestcontinues the medical management Reason For Visit: SOB/ELEVATED TROPONIN Physical Exam Vital Signs: Temp Pulse Resp BP Pulse Ox 97.4 F 100 20 110/58 L 92 02/03/20 04:19 02/03/20 07:45 02/03/20 06:53 02/03/20 07:45 02/03/20 06:53 Intake & Output 02/02/20 02/03/20 02/04/20 06:59 06:59 06:59 Intake Total 691 38 Output Total 350 Balance 341 38 Weight 61 kg General appearance: PRESENT: mild distress Eye exam: PRESENT: PERRLA Mouth exam: PRESENT: neck supple Respiratory exam: PRESENT: decreased breath sounds Cardiovascular exam: PRESENT: +S1, +S2 GI/Abdominal exam: PRESENT: normal bowel sounds, soft Neurological exam: PRESENT: altered Results Laboratory Results: 02/03/20 05:56 02/03/20 05:56 02/02/20 02/02/20 02/03/20 08:45 22:22 05:56 WBC 19.5 H D RBC 4.63 Hgb 13.4 Hct 39.7 MCV 86 MCH 29.1 MCHC 33.9 RDW 14.0 Plt Count 289 Seg Neutrophils % 85.1 H Carbonic Acid 1.14 HCO3/H2CO3 Ratio 17:1 ABG pH 7.35 ABG pCO2 37.8 ABG pO2 65.5 L ABG HCO3 20.3 ABG O2 Saturation 92.1 L ABG Base Excess -4.8 FiO2 4L Sodium 130.0 L Potassium 4.6 Chloride 101 Carbon Dioxide 21 L Anion Gap 8 BUN 12 Creatinine 0.46 L Est GFR ( Amer) > 60 Glucose 138 H Calcium 9.3 Magnesium 02/03/20 05:56 WBC RBC Hgb Hct MCV MCH MCHC RDW Plt Count Seg Neutrophils % Carbonic Acid HCO3/H2CO3 Ratio ABG pH ABG pCO2 ABG pO2 ABG HCO3 ABG O2 Saturation ABG Base Excess FiO2 Sodium 128.9 L Potassium 4.8 Chloride 97 L Carbon Dioxide 25 Anion Gap 7 BUN 19 Creatinine 0.47 L Est GFR ( Amer) > 60 Glucose 113 H Calcium 9.0 Magnesium 2.1 02/02/20 02/02/20 02/02/20 03:23 06:31 08:45 Creatine Kinase 57 CK-MB (CK-2) Troponin I 0.055 0.164 NT-Pro-B Natriuret Pep 506 H 02/02/20 02/02/20 02/02/20 08:45 15:29 15:29 Creatine Kinase 69 CK-MB (CK-2) 2.71 4.57 H Troponin I 0.295 0.785 NT-Pro-B Natriuret Pep 02/02/20 02/02/20 21:36 21:36 Creatine Kinase 81 CK-MB (CK-2) 4.82 H Troponin I 0.763 NT-Pro-B Natriuret Pep Impressions: Abdomen/Pelvis CT 02/02/20 00:00 IMPRESSION: 1. No acute intra-abdominal abnormality. 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 3. Colonic diverticulosis without diverticulitis. 4. 2.2 x 2 cm round cystic lesion in the left adnexum (image 56 of series 2). Given the age of the patient correlation with an ultrasound is recommended. 5. Stable left adrenal nodule that measures 2 x 1.5 cm. Chest/Abdomen CTA 02/02/20 00:00 IMPRESSION: 1. No pulmonary emboli. 2. Other nonemergent findings as above. Chest X-Ray 02/02/20 02:19 IMPRESSION: No acute cardiopulmonary process copyright 2010 [employer]- All Rights Reserved Assessment & Plan - Diagnosis (1) Shortness of breath Is this a current diagnosis for this admission?: Yes (2) Troponin level elevated Is this a current diagnosis for this admission?: Yes (3) Asthma exacerbation Qualifiers: Asthma severity: mild Is this a current diagnosis for this admission?: Yes (4) Coronary artery disease Qualifiers: Coronary Disease-Associated Artery/Lesion type: [place] artery Associated angina: without angina Is this a current diagnosis for this admission?: Yes (5) Gastroesophageal reflux Qualifiers: Esophagitis presence: without esophagitis Qualified Code(s): K21.9 - Gastro-esophageal reflux disease without esophagitis Is this a current diagnosis for this admission?: Yes (6) Hyperlipidemia Qualifiers: Hyperlipidemia type: unspecified Qualified Code(s): E78.5 - Hyperlipidemia, unspecified Is this a current diagnosis for this admission?: Yes (7) Hypertension Qualifiers: Hypertension type: essential hypertension Qualified Code(s): I10 - Essential (primary) hypertension Is this a current diagnosis for this admission?: Yes (8) Paraesophageal hiatal hernia Is this a current diagnosis for this admission?: Yes (9) Scoliosis (and kyphoscoliosis), idiopathic Is this a current diagnosis for this admission?: Yes - Time Time Spent with patient: 35 or more minutes Level of Care: IMCU Medications reviewed and adjusted accordingly: Yes Anticipated discharge: Other Within: Other - Inpatient Certification Based on my medical assessment, after consideration of the patient's comorbidi ties, presenting symptoms, or acuity I expect that the services needed warrant INPATIENT care.: Yes I certify that my determination is in accordance with my understanding of Eliza lopez's requirements for reasonable and necessary INPATIENT services [42 CFR 412.3e].: Yes Medical Necessity: Significant Comorbidiites Make Outpatient Treatment Too Risky, Need Close Monitoring Due to Risk of Patient Decompensation, Need For Continuous Telemetry Monitoring, Need for Nebulizer Therapy and Monitoring of Response Post Hospital Care: D/C Advertising Sales Representative Documentation - Plan Summary Plan Summary: As per multiple etiology with the patient's current condition including the type II myocardial infections hypoxia and a significant paraesophageal hernia which patient have a significant evaluations done not a very good candidate for surgery and patient expressed herself to be DNR/DNI patient's prognosis is very poor
[2020-02-03] MEDS ORDERED: CEFTRIAXONE 1 GM/D5W RTU 1 GM/50 ML RTUPB IV SCH (10:00)
--- NOTE | 2020-02-03 10:24 | RADIOLOGY REPORT (SQ) ---
EXAM DESCRIPTION: CHEST SINGLE VIEW IMAGES COMPLETED DATE/TIME: 02/03/2020 9:59 am REASON FOR STUDY: sob COMPARISON: None. EXAM PARAMETERS: NUMBER OF VIEWS: AP view of the chest from 02/02/2020. TECHNIQUE: An AP view of the chest was obtained. RADIATION DOSE: NA LIMITATIONS: None. FINDINGS: LUNGS AND PLEURA: Bilateral basilar predominant opacities that obscure the contours of the hemidiaphragms and blunt the costophrenic sulci. MEDIASTINUM AND HILAR STRUCTURES: Stable mediastinal and hilar contours. HEART AND VASCULAR STRUCTURES: Stable enlarged cardiac silhouette. BONES: Osteoarthrosis of the left glenohumeral joint. HARDWARE: None in the chest. OTHER: No other finding. IMPRESSION: Unchanged radiographic appearance of the chest. TECHNICAL DOCUMENTATION: JOB ID: [id number] 2010 [employer].- All Rights Reserved Reading location - IP/workstation name: [email or web address]
[2020-02-03] MEDS: DOCUSATE SODIUM 100 MG CAPSULE PO SCH ×2 (11:20→18:03)
[2020-02-03] MEDS: ASPIRIN 325 MG TABLET PO SCH (11:20)
[2020-02-03] MEDS: GUAIFENESIN 600 MG TABLET.SA PO SCH ×2 (11:22→18:03)
[2020-02-03] MEDS: ENOXAPARIN SODIUM INJ 40 MG/0.4 ML DISP.SYRIN SUBCUT SCH (11:29)
[2020-02-03] MEDS: PANTOPRAZOLE SODIUM 40 MG VIAL IV SCH ×2 (11:33→21:13)
[2020-02-03] MEDS: METHYLPREDNISOLONE INJ 40 MG/1 ML SDV IV SCH ×2 (11:35→18:03)
--- NOTE | 2020-02-03 13:55 | CDI QUERY ---
CDI Query CDI Review: Dear Provider: To better reflect your patients severity of illness, morbidity, and resource utilization Please specify and document in the Progress Notes and Discharge Summary if you are monitoring / treating / evaluating any of the following conditions: Query Clinical indicators Please indicate in your Progress Notes: NSTEMI confirmed NSTEMI ruled out Unable to determine Other Acute respiratory failure (with hypoxia / hypercapnia) Acute on chronic respiratory failure Unable to determine Other Per H&P: We will start the patient on a full dose Lovenox aspirin and beta-montrell Presumed non-ST PA until the full cardiac evaluations done (1) Shortness of breath Is this a current diagnosis for this admission?: Yes Plan: With multiple etiologies including the underlying asthma COPD with a non-ST PA as per discussed with the cardiology will order the CT angiogram to rule out other etiology continues to monitor the patient's Per Progress Notes: Patients have a supraventricular tachycardia type II myocardial infections and hypoxia seen by the cardiology adjust the medications Patient is progressively more worse with the more require oxygen's currently on a nonrebreather and alter The terms probable, suspected, likely, possible or still to be ruled out may be used if you are unable to determine the exact nature of a condition. Thank you for your consideration, Clinical Documentation Physician Advisors ANIBAL Black RN, BSN RN Office [phone] Office [phone]
[2020-02-03 15:24] LABS: APPEARANCE,URINE CLEAR; BILIRUBIN,URINE NEGATIVE (NEGATIVE); COLOR,URINE YELLOW; GLUCOSE, URINE 50 mg/dL (NEGATIVE); KETONES,URINE 20 mg/dL (NEGATIVE); LEUKOCYTE ESTERASE,URINE NEGATIVE (NEGATIVE); NITRITE,URINE NEGATIVE (NEGATIVE); PROTEIN,URINE 30 mg/dL (NEGATIVE); URINE SPECIFIC GRAVITY 1.016; UROBILINOGEN,URINE NEGATIVE mg/dL (<2.0)
[2020-02-03] MEDS ORDERED: CALCIUM GLUCONATE 1 GM/NS 50 ML RTU IV ONE (16:00)
[2020-02-03] MEDS ORDERED: CALCIUM GLUCONATE 1000 MG/10 ML INJ IV ONE (16:14)
[2020-02-03] MEDS: MONTELUKAST SODIUM 10 MG TABLET PO SCH (21:13)
[2020-02-03] MEDS: METOPROLOL TARTRATE 25 MG TABLET PO SCH (21:14)
--- NOTE | 2020-02-03 21:23 | Progress Note ---
Provider Note Provider Note: CARDIOLOGY PROGRESS NOTE by Dr. Peg Trujillo on 02/03/2020. SUBJECTIVE: The patient last night had severe respiratory distress and anxiety and hypoxemia she was also seen to be in SVT. And the patient complained of shortness of breath and claimed that it was her asthma attack. Auscultation by me yesterday night when I came to see the patient again showed no evidence of wheezing. This is most likely secondary to cardiorespiratory compromise secondary to herniation of sizable portions of intra-abdominal contents into the chest wall causing respiratory and cardiovascular compromise. Hence the patient's troponin I is secondary to hypoxemia and SVT. The patient denies any anginal symptoms. Even when the patient's heart rate was fast at 150 with SVT on the monitor the patient had no anginal symptoms. This a.m. again the patient was better with the patient being on IV Cardizem and is also the patient getting Ativan. Subsequently the patient again started having significant shortness of breath with hypoxemia and sinus tachycardia. Initially the patient was started on a Cardizem drip but this had to be discontinued due to the patient being hypotensive. Her blood pressure came up when she required an amp of calcium gluconate. But we kept the patient reverse Trendelenburg position and on a nonrebreather and her saturations came up to 100%. At present the patient is drowsy secondary to Ativan. But wakes up and acts appropriately. She denies any chest pain or discomfort. Would recommend keeping the patient in a reverse Trendelenburg position so that gravity helps decrease the intra-abdominal herniation into the chest. PHYSICAL EXAMINATION: The patient is a frail build and appears to be chronically ill. Selected Entries 02/03/20 02/03/20 02/03/20 07:30 07:43 07:45 Temperature 97.9 F Temperature Axillary Source Pulse Rate 99 Respiratory 26 H Rate Blood Pressure 129/69 H 110/58 L BP Position O2 Sat by Pulse 98 Oximetry Oxygen Flow 15.00 Rate Oxygen Delivery PRB/NRB Method 02/03/20 11:22 Temperature 97.8 F Temperature Axillary Source Pulse Rate 80 Respiratory 28 H Rate Blood Pressure BP Position Supine O2 Sat by Pulse 100 Oximetry Oxygen Flow 15.00 Rate Oxygen Delivery PRB/NRB Method Of your head: Is atraumatic normocephalic. EYES: Pupils are equal round regular reactive to light accommodation. Extraocular movements are normal. There is no visual pallor. There is no scleral icterus. EARS: Tympanic membranes are intact external auditory canals are clear. NOSE: There is no deviated nasal septum. There is no inflammation of the nasal mucous membrane. MOUTH: Mucous membranes of mouth are moist. Tongue is moist. There is no ulcers. There is no bleeding from the gums. THROAT: There is no redness of the oropharynx. There is no exudates. NECK: Is supple. There is no JVD. Carotids are equal there is no bruit. There is no lymphadenopathy. There is no goiter. There is no accessory muscles of respiration use. Trachea central. LUNGS: Shows a few scattered rhonchi. There is no rhonchi or wheezing. Bowel sounds are heard in the left front of the chest. HEART: S1-S2 is heard. There is no S3 gallop. There is no S4 gallop. There is systolic murmur left sternal border and apex there is no rub. ABDOMEN: Soft. Nontender there is no paraspinal megaly. Bowel sounds are well heard. EXTREMITIES: Femorals are diminished. There is no femoral bruits. Leg pulses are diminished. There is no pedal edema. There is no DVT or cellulitis. There is no femoral bruits. There is no cyanosis or clubbing. FINISHING LAB TECHNICIAN: The patient is conscious slightly drowsy. With no focal deficits. PSYCHIATRIC: The patient earlier was anxious at present is sedated and drowsy. At present is not agitated. The patient's EKG yesterday showed SVT with repolarization changes. Subsequent EKG shows sinus tachycardia with nonspecific ST-T changes. The patient's EKG this morning shows sinus tachycardia with right atrial abnormality and nonspecific ST-T changes. Labs- All tests 24 hr 02/02/20 02/02/20 02/02/20 21:36 21:36 22:22 WBC RBC Hgb Hct MCV MCH MCHC RDW Plt Count Lymph % (Auto) [place] % (Auto) Eos % (Auto) Baso % (Auto) Absolute Neuts (auto) Absolute Lymphs (auto) Absolute Monos (auto) Absolute Eos (auto) Absolute Basos (auto) Seg Neutrophils % Carbonic Acid 1.14 HCO3/H2CO3 Ratio 17:1 ABG pH 7.35 ABG pCO2 37.8 ABG pO2 65.5 L ABG HCO3 20.3 ABG Total CO2 21.5 ABG O2 Saturation 92.1 L ABG Base Excess -4.8 FiO2 4L Sodium Potassium Chloride Carbon Dioxide Anion Gap BUN Creatinine Est GFR ( Amer) Est GFR (MDRD) Non-Af Glucose Calcium Magnesium Creatine Kinase 81 CK-MB (CK-2) 4.82 H Troponin I 0.763 Albumin Urine Color Urine Appearance Urine pH Ur Specific [place] Urine Protein Urine Glucose (UA) Urine Ketones Urine Blood Urine Nitrite Urine Bilirubin Urine Urobilinogen Ur Leukocyte Esterase Urine WBC (Auto) Urine RBC (Auto) Urine Bacteria (Auto) Urine Mucus (Auto) Urine Ascorbic Acid 02/03/20 02/03/20 02/03/20 05:56 05:56 05:56 WBC 19.5 H D RBC 4.63 Hgb 13.4 Hct 39.7 MCV 86 MCH 29.1 MCHC 33.9 RDW 14.0 Plt Count 289 Lymph % (Auto) 6.0 L [place] % (Auto) 8.4 Eos % (Auto) 0.0 Baso % (Auto) 0.5 Absolute Neuts (auto) 16.6 H Absolute Lymphs (auto) 1.2 Absolute Monos (auto) 1.6 H Absolute Eos (auto) 0.0 Absolute Basos (auto) 0.1 Seg Neutrophils % 85.1 H Carbonic Acid HCO3/H2CO3 Ratio ABG pH ABG pCO2 ABG pO2 ABG HCO3 ABG Total CO2 ABG O2 Saturation ABG Base Excess FiO2 Sodium 128.9 L Potassium 4.8 Chloride 97 L Carbon Dioxide 25 Anion Gap 7 BUN 19 Creatinine 0.47 L Est GFR ( Amer) > 60 Est GFR (MDRD) Non-Af > 60 Glucose 113 H Calcium 9.0 Magnesium 2.1 Creatine Kinase CK-MB (CK-2) Troponin I Albumin Cancelled Urine Color Urine Appearance Urine pH Ur Specific [place] Urine Protein Urine Glucose (UA) Urine Ketones Urine Blood Urine Nitrite Urine Bilirubin Urine Urobilinogen Ur Leukocyte Esterase Urine WBC (Auto) Urine RBC (Auto) Urine Bacteria (Auto) Urine Mucus (Auto) Urine Ascorbic Acid 02/03/20 02/03/20 08:57 14:35 WBC RBC Hgb Hct MCV MCH MCHC RDW Plt Count Lymph % (Auto) [place] % (Auto) Eos % (Auto) Baso % (Auto) Absolute Neuts (auto) Absolute Lymphs (auto) Absolute Monos (auto) Absolute Eos (auto) Absolute Basos (auto) Seg Neutrophils % Carbonic Acid 1.20 HCO3/H2CO3 Ratio 21:1 ABG pH 7.42 ABG pCO2 39.9 ABG pO2 107.6 H ABG HCO3 25.4 H ABG Total CO2 26.6 H ABG O2 Saturation 98.0 ABG Base Excess 0.9 FiO2 100% Sodium Potassium Chloride Carbon Dioxide Anion Gap BUN Creatinine Est GFR ( Amer) Est GFR (MDRD) Non-Af Glucose Calcium Magnesium Creatine Kinase CK-MB (CK-2) Troponin I Albumin Urine Color YELLOW Urine Appearance CLEAR Urine pH 6.0 Ur Specific [place] 1.016 Urine Protein 30 H Urine Glucose (UA) 50 H Urine Ketones 20 H Urine Blood LARGE H Urine Nitrite NEGATIVE Urine Bilirubin NEGATIVE Urine Urobilinogen NEGATIVE Ur Leukocyte Esterase NEGATIVE Urine WBC (Auto) 12 Urine RBC (Auto) >182 Urine Bacteria (Auto) TRACE Urine Mucus (Auto) RARE Urine Ascorbic Acid NEGATIVE Abdomen/Pelvis CT 02/02/20 00:00 IMPRESSION: 1. No acute intra-abdominal abnormality. 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 3. Colonic diverticulosis without diverticulitis. 4. 2.2 x 2 cm round cystic lesion in the left adnexum (image 56 of series 2). Given the age of the patient correlation with an ultrasound is recommended. 5. Stable left adrenal nodule that measures 2 x 1.5 cm. Chest X-Ray 02/02/20 00:00 IMPRESSION: Stable chest, as above copyright 2010 [employer]- All Rights Reserved Chest/Abdomen CTA 02/02/20 00:00 IMPRESSION: 1. No pulmonary emboli. 2. Other nonemergent findings as above. Chest X-Ray 02/02/20 02:19 IMPRESSION: No acute cardiopulmonary process copyright 2010 [employer]- All Rights Reserved Chest X-Ray 02/03/20 00:00 IMPRESSION: Unchanged radiographic appearance of the chest. IMPRESSION/RECOMMENDATION: 1. Acute hypoxic respiratory failure. This is most likely secondary to the patient's asthma although not much wheezing. And lung compromise due to herniation of intra-abdominal contents to a diaphragmatic hernia which is large. Would recommend keeping the patient in reverse Trendelenburg position to help gravity minimized the amount of herniation of abdominal contents into the chest. 2. SVT: This is most likely secondary to cardiac compromise due to herniation of the intra-abdominal contents into the chest wall. We will start the patient on p.o. metoprolol. The Cardizem drip has been discontinued. 3. Elevated troponin: No evidence of non-ST elevation [place]. This is type II [place] secondary to supply demand mismatch due to hypoxemia SVT and respiratory failure. 4. Coronary artery disease: No anginal symptoms. 5. 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 6. Hypertension. Seems to be well controlled. RECOMMENDATIONS: Continue the patient on nonrebreather. Continue patient on p.o. metoprolol. Medications adjusted. Medical regimen and management plan discussed with the attending provider on the case. Medical decision making is of high complexity. 50 minutes spent with patient with more than 50% time spent in direct patient care. Will follow.
--- NOTE | 2020-02-03 22:50 | XCELERA REPORT ---
[address] [address] Transthoracic Echocardiogram Report Name: BHUPINDER NARVAEZ Age: 79 yrs Gender: Female : 1940 Patient Status: Inpatient Patient Location: [address] [place] [address] Study Date: 02/03/2020 02:05 PM Height: 59 in Weight: 134 lb BSA: 1.6 m2 Procedure: A two-dimensional transthoracic echocardiogram with color flow and Doppler was performed. The study was technically limited with all images being suboptimal in quality. Reason For Study: NSTEMI / MR History: NSTEMI / MR. Ordering Physician: PEG NAVARRO Performed By: Sonia Reese Interpretation Summary The left ventricle is normal in size. There is normal left ventricular wall thickness. LV EF is 45% Left ventricular systolic function is moderately reduced. Doppler measurements suggest impaired left ventricular relaxation, which is associated with grade I/IV or mild diastolic dysfunction There is moderate global hypokinesis of the left ventricle. There is no thrombus. cannot assess ASD,VSD , or PFO. The right ventricle is normal in size and function. The right atrium is normal. The left atrium is mildly dilated. There is no evidence of mitral valve prolapse. There is no vegetation seen on the mitral valve. There is no mitral valve stenosis. There is a mild amount of mitral regurgitation There is no aortic valvular vegetation. There is no aortic valve stenosis There is no LVOT obstruction. No aortic regurgitation is present. There is no tricuspid stenosis. There is a moderate amount of tricuspid regurgitation There is mild pulmonary hypertension by echo RVSP is 34 to 39 mm of Hg , with RA mean of 5 to 10. There is no pulmonic valvular stenosis. There is no pulmonic valvular regurgitation. The aortic root is normal size. The inferior vena cava appeared normal and decreased > 50% with respiration (RAP 5-10 mmHg) There is no pericardial effusion. MMode/2D Measurements & Calculations RVDd: 2.3 cm LVIDd: 4.7 cm FS: 27.1 % Ao root diam: 2.6 cm IVSd: 0.97 cm LVIDs: 3.4 cm EDV(Teich): 102.2 ml Ao root area: 5.4 cm2 LVPWd: 0.93 cm ESV(Teich): 48.2 ml EF(Teich): 52.8 % Doppler Measurements & Calculations MV E max elida: MV dec slope: Ao V2 max: LV V1 max P.3 cm/sec 306.9 cm/sec2 118.8 cm/sec 3.5 mmHg MV A max elida: MV dec time: 0.13 secAo max P.6 mmHgLV V1 max: 66.9 cm/sec 93.4 cm/sec MV E/A: 0.60 PA V2 max: PI end-d elida: TR max elida: 54.6 cm/sec 118.1 cm/sec 269.2 cm/sec PA max P.2 mmHg TR max P.0 mmHg Left Ventricle The left ventricle is normal in size. There is normal left ventricular wall thickness. LV EF is 45%. Left ventricular systolic function is moderately reduced. Doppler measurements suggest impaired left ventricular relaxation, which is associated with grade I/IV or mild diastolic dysfunction. There is moderate global hypokinesis of the left ventricle. There is no thrombus. cannot assess ASD,VSD , or PFO. Right Ventricle The right ventricle is normal in size and function. Atria The right atrium is normal. The left atrium is mildly dilated. Mitral Valve There is no evidence of mitral valve prolapse. There is no vegetation seen on the mitral valve. There is no mitral valve stenosis. There is a mild amount of mitral regurgitation. Aortic Valve There is no aortic valvular vegetation. There is no aortic valve stenosis. There is no LVOT obstruction. No aortic regurgitation is present. Tricuspid Valve There is no tricuspid stenosis. There is a moderate amount of tricuspid regurgitation. There is mild pulmonary hypertension by echo. RVSP is 34 to 39 mm of Hg , with RA mean of 5 to 10. Pulmonic Valve There is no pulmonic valvular stenosis. There is no pulmonic valvular regurgitation. Great Vessels The aortic root is normal size. The inferior vena cava appeared normal and decreased > 50% with respiration (RAP 5-10 mmHg). Effusions There is no pericardial effusion. : PEG NAVARRO Lakshmi
[2020-02-03] MEDS: MAG HYDROX/AL HYDROX/SIMETH SUSP 30 ML UDCUP PO PRN (23:15)
[2020-02-04] MEDS: IPRATROPIUM/ALBUTEROL 0.5-2.5 MG/3 ML AMPUL NEB PRN (02:35)
[2020-02-04] MEDS: METOPROLOL TARTRATE 25 MG TABLET PO SCH ×2 (05:16→18:33)
[2020-02-04 07:04] LABS: HEMATOCRIT 39.3 % (36.0-47.0); HEMOGLOBIN 13.2 g/dL (12.0-15.5); MEAN CORPUSCULAR HEMOGLOBIN 28.9 pg (27.0-33.4); MEAN CORPUSCULAR HGB CONC 33.6 g/dL (32.0-36.0); MEAN CORPUSCULAR VOLUME 86 fl (80-97); PLATELET COUNT 306 10^3/uL (150-450); RED BLOOD COUNT 4.58 10^6/uL (3.72-5.28); RED CELL DISTRIBUTION WIDTH 14.3 % (11.5-14.0); WHITE BLOOD COUNT 19.8 10^3/uL (4.0-10.5)
--- NOTE | 2020-02-04 07:15 | EKG REPORT ---
SEVERITY:- ABNORMAL ECG - SINUS RHYTHM ABNORMAL T, CONSIDER ISCHEMIA, ANT-LAT LEADS : Confirmed by: Mohsen You MD 04-Feb-2020 07:14:55
[2020-02-04 07:23] LABS: ANION GAP 9 (5-19); BLOOD UREA NITROGEN 22 mg/dL (7-20); CALCIUM 9.1 mg/dL (8.4-10.2); CARBON DIOXIDE 23 mmol/L (22-30); CHLORIDE 95 mmol/L (98-107); GLUCOSE 116 mg/dL (75-110)
[2020-02-04 07:38] LABS: ABSOLUTE LYMPHOCYTES# (MANUAL) 0.4 10^3/uL (0.5-4.7); ABSOLUTE MONOCYTES # (MANUAL) 1.4 10^3/uL (0.1-1.4); ANISOCYTOSIS SLIGHT; BASOPHILS % (MANUAL) 0 % (0-2); EOSINOPHILS % (MANUAL) 0 % (0-6); LYMPHOCYTES % (MANUAL) 2 % (13-45); MONOCYTES % (MANUAL) 7 % (3-13); PLATELET COMMENT ADEQUATE; SEGMENTED NEUTROPHILS % (MAN) 91 % (42-78); TOTAL CELLS COUNTED 100
[2020-02-04 07:39] LABS: POIKILOCYTOSIS SLIGHT; TEAR DROP CELLS SLIGHT
[2020-02-04] MEDS: IPRATROPIUM/ALBUTEROL 0.5-2.5 MG/3 ML AMPUL NEB SCH ×4 (08:18→20:30)
[2020-02-04] MEDS: SIMETHICONE 80 MG TAB.CHEW PO SCH ×3 (08:35→18:33)
[2020-02-04] MEDS ORDERED: NORMAL SALINE 1000 ML 1,000 ML IV PRN ×2 (08:53→10:57)
--- NOTE | 2020-02-04 10:17 | PDOC PROGRESS REPORT ---
Subjective Progress Note for:: 02/04/20 Subjective:: Patient is feeling much better this morning fully alert awake oriented talking right now compared to yesterday His oxygen level is also reduced She is still have a short of breath denied any chest pain Patients were no fever no chills As per discussed with the cardiology most likely patient having this paraesophageal hernia which causing the more short of breath which patient have is usable for a long time and elevated troponin secondary to the type II myocardial infections Again expressed today's DNR/DNI discuss with the patient's family yesterday regarding the patient's current conditions Reason For Visit: SOB/ELEVATED TROPONIN Physical Exam Vital Signs: Temp Pulse Resp BP Pulse Ox 97.5 F 86 18 120/64 93 02/04/20 08:30 02/04/20 08:30 02/04/20 08:30 02/04/20 08:30 02/04/20 08:30 Intake & Output 02/03/20 02/04/20 02/05/20 06:59 06:59 06:59 Intake Total 691 428 Output Total 350 950 Balance 341 -522 Weight 61 kg 61.3 kg General appearance: PRESENT: no acute distress, well-developed, well-nourished Head exam: PRESENT: atraumatic, normocephalic Eye exam: PRESENT: conjunctiva pink, EOMI, PERRLA. ABSENT: scleral icterus Ear exam: PRESENT: normal external ear exam Mouth exam: PRESENT: moist, tongue midline Neck exam: PRESENT: full ROM. ABSENT: carotid bruit, JVD, lymphadenopathy, thyromegaly Respiratory exam: PRESENT: clear to auscultation candelario Cardiovascular exam: PRESENT: RRR. ABSENT: diastolic murmur, rubs, systolic murmur Pulses: PRESENT: normal dorsalis pedis pul, +2 pedal pulses bilateral Vascular exam: PRESENT: normal capillary refill GI/Abdominal exam: PRESENT: normal bowel sounds, soft. ABSENT: distended, guarding, mass, organolmegaly, rebound, tenderness Rectal exam: PRESENT: deferred Neurological exam: PRESENT: alert, awake, oriented to person, oriented to place, oriented to time, oriented to situation, CN II-XII grossly intact. ABSENT: motor sensory deficit Psychiatric exam: PRESENT: appropriate affect, normal mood. ABSENT: homicidal ideation, suicidal ideation Skin exam: PRESENT: dry, intact, warm. ABSENT: cyanosis, rash Results Laboratory Results: 02/04/20 06:11 02/04/20 06:11 02/03/20 02/03/20 02/04/20 05:56 14:35 06:11 WBC 19.8 H RBC 4.58 Hgb 13.2 Hct 39.3 MCV 86 MCH 28.9 MCHC 33.6 RDW 14.3 H Plt Count 306 Seg Neutrophils % Not Reportable Sodium Potassium Chloride Carbon Dioxide Anion Gap BUN Creatinine Est GFR ( Amer) Glucose Calcium Magnesium Albumin Cancelled Urine Color YELLOW Urine Appearance CLEAR Urine pH 6.0 Ur Specific [place] 1.016 Urine Protein 30 H Urine Glucose (UA) 50 H Urine Ketones 20 H Urine Blood LARGE H Urine Nitrite NEGATIVE Ur Leukocyte Esterase NEGATIVE Urine WBC (Auto) 12 Urine RBC (Auto) >182 02/04/20 06:11 WBC RBC Hgb Hct MCV MCH MCHC RDW Plt Count Seg Neutrophils % Sodium 127.1 L Potassium 5.0 Chloride 95 L Carbon Dioxide 23 Anion Gap 9 BUN 22 H Creatinine 0.59 Est GFR ( Amer) > 60 Glucose 116 H Calcium 9.1 Magnesium 2.4 H Albumin Urine Color Urine Appearance Urine pH Ur Specific [place] Urine Protein Urine Glucose (UA) Urine Ketones Urine Blood Urine Nitrite Ur Leukocyte Esterase Urine WBC (Auto) Urine RBC (Auto) 02/02/20 14:15 Clean Catch Midstream Urine Culture - Final Mixed Urogenital Zahra 02/02/20 02/02/20 02/02/20 03:23 06:31 08:45 Creatine Kinase 57 CK-MB (CK-2) Troponin I 0.055 0.164 NT-Pro-B Natriuret Pep 506 H 02/02/20 02/02/20 02/02/20 08:45 15:29 15:29 Creatine Kinase 69 CK-MB (CK-2) 2.71 4.57 H Troponin I 0.295 0.785 NT-Pro-B Natriuret Pep 02/02/20 02/02/20 21:36 21:36 Creatine Kinase 81 CK-MB (CK-2) 4.82 H Troponin I 0.763 NT-Pro-B Natriuret Pep Impressions: Abdomen/Pelvis CT 02/02/20 00:00 IMPRESSION: 1. No acute intra-abdominal abnormality. 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 3. Colonic diverticulosis without diverticulitis. 4. 2.2 x 2 cm round cystic lesion in the left adnexum (image 56 of series 2). Given the age of the patient correlation with an ultrasound is recommended. 5. Stable left adrenal nodule that measures 2 x 1.5 cm. Chest/Abdomen CTA 02/02/20 00:00 IMPRESSION: 1. No pulmonary emboli. 2. Other nonemergent findings as above. Chest X-Ray 02/03/20 00:00 IMPRESSION: Unchanged radiographic appearance of the chest. Assessment & Plan - Diagnosis (1) Shortness of breath Is this a current diagnosis for this admission?: Yes (2) Troponin level elevated Is this a current diagnosis for this admission?: Yes (3) Asthma exacerbation Qualifiers: Asthma severity: mild Is this a current diagnosis for this admission?: Yes (4) Coronary artery disease Qualifiers: Coronary Disease-Associated Artery/Lesion type: [place] artery Associated angina: without angina Is this a current diagnosis for this admission?: Yes (5) Gastroesophageal reflux Qualifiers: Esophagitis presence: without esophagitis Qualified Code(s): K21.9 - Gastro-esophageal reflux disease without esophagitis Is this a current diagnosis for this admission?: Yes (6) Hyperlipidemia Qualifiers: Hyperlipidemia type: unspecified Qualified Code(s): E78.5 - Hyperlipidemia, unspecified Is this a current diagnosis for this admission?: Yes (7) Hypertension Qualifiers: Hypertension type: essential hypertension Qualified Code(s): I10 - Essential (primary) hypertension Is this a current diagnosis for this admission?: Yes (8) Paraesophageal hiatal hernia Is this a current diagnosis for this admission?: Yes (9) Scoliosis (and kyphoscoliosis), idiopathic Is this a current diagnosis for this admission?: Yes (10) Supraventricular tachycardia Is this a current diagnosis for this admission?: Yes Plan: Currently follow with the Dr. Huber (11) Type 2 myocardial infarction due to arrhythmia Is this a current diagnosis for this admission?: Yes Plan: Continues to current medications follow-up with the cardiology - Time Time Spent with patient: 25-34 minutes Level of Care: IMCU Medications reviewed and adjusted accordingly: Yes Anticipated discharge: Other Within: Other - Plan Summary Plan Summary: Continues to IV antibiotics continues oxygen supplements reduce the steroid continues to monitor the patient's
[2020-02-04] MEDS: ASPIRIN 325 MG TABLET PO SCH (10:30)
[2020-02-04] MEDS: DOCUSATE SODIUM 100 MG CAPSULE PO SCH ×2 (10:30→18:33)
[2020-02-04] MEDS: GUAIFENESIN 600 MG TABLET.SA PO SCH ×2 (10:30→18:33)
[2020-02-04] MEDS: PANTOPRAZOLE SODIUM 40 MG VIAL IV SCH ×2 (10:31→21:56)
[2020-02-04] MEDS: CEFEPIME 1 GM/D5W RTU 1 GM/50 ML RTUPB IV SCH ×2 (10:31→21:55)
[2020-02-04] MEDS: METHYLPREDNISOLONE INJ 40 MG/1 ML SDV IV SCH ×2 (10:35→18:34)
[2020-02-04] MEDS: ENOXAPARIN SODIUM INJ 40 MG/0.4 ML DISP.SYRIN SUBCUT SCH (10:36)
--- NOTE | 2020-02-04 19:17 | Progress Note ---
Provider Note Provider Note: Cardiology PROGRESS NOTE by Dr. Patel spent on 02/04/2020. SUBJECTIVE: The patient has made a remarkable turnaround. She is on nasal cannula. She is awake alert and cheerful. She is not short of breath. There is no chest pain or discomfort. There is no recurrence of SVT. There is no ventricle arrhythmia seen on the monitor. There is no leg edema. There is no PND orthopnea. PHYSICAL EXAMINATION: The patient is a frail build. In no acute distress. She is well-groomed. Selected Entries 02/04/20 08:30 Temperature 97.5 F Temperature Oral Source Pulse Rate 86 Respiratory 18 Rate Blood Pressure 120/64 Blood Pressure 82 Mean BP Location Left Arm BP Position Supine O2 Sat by Pulse 93 Oximetry Oxygen Flow 3.00 Rate Oxygen Delivery Nasal Cannula Method Is atraumatic normocephalic. EYES: Pupils are equal round regular reactive to light accommodation. Extraocular movements are normal. There is no visual pallor. There is no scleral icterus. EARS: Tympanic membranes are intact external auditory canals are clear. NOSE: There is no deviated nasal septum. There is no inflammation of the nasal mucous membrane. MOUTH: Mucous membranes of mouth are moist. Tongue is moist. There is no ulcers. There is no bleeding from the gums. THROAT: There is no redness of the oropharynx. There is no exudates. NECK: Is supple. There is no JVD. Carotids are equal there is no bruit. There is no lymphadenopathy. There is no goiter. There is no accessory muscles of respiration use. Trachea central. LUNGS: Clear without any rhonchi rales or wheezing. Bowel sounds are heard in the left front of the chest. HEART: S1-S2 is heard. There is no S3 gallop. There is no S4 gallop. There is systolic murmur left sternal border and apex there is no rub. ABDOMEN: Soft. Nontender there is no hepatospleno megaly. Bowel sounds are well heard. EXTREMITIES: Femorals are diminished. There is no femoral bruits. Leg pulses are diminished. There is no pedal edema. There is no DVT or cellulitis. There is no femoral bruits. There is no cyanosis or clubbing. GENERAL INSPECTOR: The patient is conscious slightly drowsy. With no focal deficits. PSYCHIATRIC: The patient's judgment and insight are intact his affect is normal. Abdomen/Pelvis CT 02/02/20 00:00 IMPRESSION: 1. No acute intra-abdominal abnormality. 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 3. Colonic diverticulosis without diverticulitis. 4. 2.2 x 2 cm round cystic lesion in the left adnexum (image 56 of series 2). Given the age of the patient correlation with an ultrasound is recommended. 5. Stable left adrenal nodule that measures 2 x 1.5 cm. Chest X-Ray 02/02/20 00:00 IMPRESSION: Stable chest, as above copyright 2010 [employer]- All Rights Reserved Chest/Abdomen CTA 02/02/20 00:00 IMPRESSION: 1. No pulmonary emboli. 2. Other nonemergent findings as above. Chest X-Ray 02/02/20 02:19 IMPRESSION: No acute cardiopulmonary process copyright 2010 [employer]- All Rights Reserved Chest X-Ray 02/03/20 00:00 IMPRESSION: Unchanged radiographic appearance of the chest. Labs- All tests 24 hr 02/04/20 02/04/20 06:11 06:11 WBC 19.8 H RBC 4.58 Hgb 13.2 Hct 39.3 MCV 86 MCH 28.9 MCHC 33.6 RDW 14.3 H Plt Count 306 Lymph % (Auto) Not Reportable [place] % (Auto) Not Reportable Eos % (Auto) Not Reportable Baso % (Auto) Not Reportable Absolute Neuts (auto) Not Reportable Absolute Lymphs (auto) Not Reportable Absolute Monos (auto) Not Reportable Absolute Eos (auto) Not Reportable Absolute Basos (auto) Not Reportable Total Counted 100 Seg Neutrophils % Not Reportable Seg Neuts % (Manual) 91 H Lymphocytes % (Manual) 2 L Monocytes % (Manual) 7 Eosinophils % (Manual) 0 Basophils % (Manual) 0 Abs Neuts (Manual) 18.0 H Abs Lymphs (Manual) 0.4 L Abs Monocytes (Manual) 1.4 Absolute Eos (Manual) 0.0 Abs Basophils (Manual) 0.0 Platelet Comment ADEQUATE Poikilocytosis SLIGHT Anisocytosis SLIGHT Tear Drop Cells SLIGHT Sodium 127.1 L Potassium 5.0 Chloride 95 L Carbon Dioxide 23 Anion Gap 9 BUN 22 H Creatinine 0.59 Est GFR ( Amer) > 60 Est GFR (MDRD) Non-Af > 60 Glucose 116 H Calcium 9.1 Magnesium 2.4 H IMPRESSION/RECOMMENDATION: 1. Acute hypoxic respiratory failure. This is most likely secondary to the patient's asthma although not much wheezing. And lung compromise due to herniation of intra-abdominal contents to a diaphragmatic hernia which is large. Would recommend keeping the patient in reverse Trendelenburg position to help gravity minimized the amount of herniation of abdominal contents into the chest. These measures have resulted in resolution of the patient's symptoms and she is very comfortable respiratory failure as resolved. She is back on nasal cannula. 2. SVT: This is most likely secondary to cardiac compromise due to herniation of the intra-abdominal contents into the chest wall. We will start the patient on p.o. metoprolol. The Cardizem drip has been discontinued. 3. Elevated troponin: No evidence of non-ST elevation ME. This is type II ME secondary to supply demand mismatch due to hypoxemia SVT and respiratory failure. 4. Coronary artery disease: No anginal symptoms. 5. 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 6. Hypertension. Seems to be well controlled. RECOMMENDATIONS: Continue the patient on nonrebreather. Continue patient on p.o. metoprolol. Medications adjusted. Medical regimen and management plan discussed with the attending provider on the case. Medical decision making is of moderate complexity. 50 minutes spent with patient with more than 50% time spent in direct patient care. Will follow.
[2020-02-04] MEDS: MONTELUKAST SODIUM 10 MG TABLET PO SCH (21:56)
[2020-02-05] MEDS: MAG HYDROX/AL HYDROX/SIMETH SUSP 30 ML UDCUP PO PRN ×2 (00:22→19:40)
[2020-02-05] MEDS: METOPROLOL TARTRATE 25 MG TABLET PO SCH ×2 (05:51→17:17)
[2020-02-05 06:35] LABS: ABSOLUTE LYMPHOCYTES (AUTO) 1.3 10^3/uL (0.5-4.7); ABSOLUTE MONOCYTES (AUTO) 0.9 10^3/uL (0.1-1.4); BASOPHILS % (AUTO) 0.3 % (0-2); HEMATOCRIT 38.7 % (36.0-47.0); HEMOGLOBIN 13.1 g/dL (12.0-15.5); LYMPHOCYTES % (AUTO) 8.8 % (13-45); MEAN CORPUSCULAR HEMOGLOBIN 29.1 pg (27.0-33.4); MEAN CORPUSCULAR HGB CONC 33.9 g/dL (32.0-36.0); MEAN CORPUSCULAR VOLUME 86 fl (80-97); PLATELET COUNT 282 10^3/uL (150-450); RED CELL DISTRIBUTION WIDTH 14.2 % (11.5-14.0); SEGMENTED NEUTROPHILS % (AUTO) 84.9 % (42-78); TOTAL CELLS COUNTED % (AUTO) 100 %; WHITE BLOOD COUNT 14.2 10^3/uL (4.0-10.5)
[2020-02-05 06:56] LABS: ANION GAP 6 (5-19); BLOOD UREA NITROGEN 17 mg/dL (7-20); CALCIUM 8.8 mg/dL (8.4-10.2); CARBON DIOXIDE 26 mmol/L (22-30); CHLORIDE 97 mmol/L (98-107); GLUCOSE 108 mg/dL (75-110); POTASSIUM 4.5 mmol/L (3.6-5.0)
--- NOTE | 2020-02-05 07:17 | EKG REPORT ---
SEVERITY:- ABNORMAL ECG - SINUS RHYTHM PROBABLE LVH WITH SECONDARY REPOL ABNRM BORDERLINE PROLONGED QT INTERVAL : Confirmed by: Mohsen You MD 05-Feb-2020 07:16:15
[2020-02-05] MEDS: IPRATROPIUM/ALBUTEROL 0.5-2.5 MG/3 ML AMPUL NEB SCH ×4 (08:11→20:21)
[2020-02-05] MEDS: SIMETHICONE 80 MG TAB.CHEW PO SCH ×3 (10:09→17:17)
[2020-02-05] MEDS: METHYLPREDNISOLONE INJ 40 MG/1 ML SDV IV SCH (10:19)
[2020-02-05] MEDS: PANTOPRAZOLE SODIUM 40 MG VIAL IV SCH ×2 (10:19→21:20)
[2020-02-05] MEDS: ENOXAPARIN SODIUM INJ 40 MG/0.4 ML DISP.SYRIN SUBCUT SCH (10:19)
[2020-02-05] MEDS: GUAIFENESIN 600 MG TABLET.SA PO SCH ×2 (10:20→17:17)
[2020-02-05] MEDS: CEFEPIME 1 GM/D5W RTU 1 GM/50 ML RTUPB IV SCH ×2 (10:20→21:20)
[2020-02-05] MEDS: DOCUSATE SODIUM 100 MG CAPSULE PO SCH ×2 (10:20→17:17)
[2020-02-05] MEDS: ASPIRIN 325 MG TABLET PO SCH (10:20)
--- NOTE | 2020-02-05 13:34 | PDOC PROGRESS REPORT ---
Subjective Progress Note for:: 02/05/20 Subjective:: Patient is feeling much better Patient's denied any chest pain No fever no chills Patient's breathing is much improved Reason For Visit: SOB/ELEVATED TROPONIN Physical Exam Vital Signs: Temp Pulse Resp BP Pulse Ox 97.4 F 70 15 107/68 98 02/05/20 08:29 02/05/20 11:44 02/05/20 11:44 02/05/20 08:29 02/05/20 11:44 Intake & Output 02/04/20 02/05/20 02/06/20 06:59 06:59 06:59 Intake Total 428 720 50 Output Total 950 1900 Balance -522 -1180 50 Weight 61.3 kg 62.4 kg General appearance: PRESENT: no acute distress, well-developed, well-nourished Head exam: PRESENT: atraumatic, normocephalic Eye exam: PRESENT: conjunctiva pink, EOMI, PERRLA. ABSENT: scleral icterus Ear exam: PRESENT: normal external ear exam Mouth exam: PRESENT: moist, tongue midline Neck exam: PRESENT: full ROM. ABSENT: carotid bruit, JVD, lymphadenopathy, thyromegaly Respiratory exam: PRESENT: clear to auscultation candelario Cardiovascular exam: PRESENT: RRR. ABSENT: diastolic murmur, rubs, systolic murmur Pulses: PRESENT: normal dorsalis pedis pul, +2 pedal pulses bilateral Vascular exam: PRESENT: normal capillary refill GI/Abdominal exam: PRESENT: normal bowel sounds, soft. ABSENT: distended, guarding, mass, organolmegaly, rebound, tenderness Rectal exam: PRESENT: deferred Neurological exam: PRESENT: alert, awake, oriented to person, oriented to place, oriented to time, oriented to situation, CN II-XII grossly intact. ABSENT: motor sensory deficit Psychiatric exam: PRESENT: appropriate affect, normal mood. ABSENT: homicidal ideation, suicidal ideation Skin exam: PRESENT: dry, intact, warm. ABSENT: cyanosis, rash Results Laboratory Results: 02/05/20 05:50 02/05/20 05:50 02/05/20 02/05/20 05:50 05:50 WBC 14.2 H RBC 4.50 Hgb 13.1 Hct 38.7 MCV 86 MCH 29.1 MCHC 33.9 RDW 14.2 H Plt Count 282 Seg Neutrophils % 84.9 H Sodium 129.2 L Potassium 4.5 Chloride 97 L Carbon Dioxide 26 Anion Gap 6 BUN 17 Creatinine 0.55 Est GFR ( Amer) > 60 Glucose 108 Calcium 8.8 Magnesium 2.4 H 02/02/20 02/02/20 02/02/20 03:23 06:31 08:45 Creatine Kinase 57 CK-MB (CK-2) Troponin I 0.055 0.164 NT-Pro-B Natriuret Pep 506 H 02/02/20 02/02/20 02/02/20 08:45 15:29 15:29 Creatine Kinase 69 CK-MB (CK-2) 2.71 4.57 H Troponin I 0.295 0.785 NT-Pro-B Natriuret Pep 02/02/20 02/02/20 21:36 21:36 Creatine Kinase 81 CK-MB (CK-2) 4.82 H Troponin I 0.763 NT-Pro-B Natriuret Pep Impressions: Abdomen/Pelvis CT 02/02/20 00:00 IMPRESSION: 1. No acute intra-abdominal abnormality. 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 3. Colonic diverticulosis without diverticulitis. 4. 2.2 x 2 cm round cystic lesion in the left adnexum (image 56 of series 2). Given the age of the patient correlation with an ultrasound is recommended. 5. Stable left adrenal nodule that measures 2 x 1.5 cm. Chest/Abdomen CTA 02/02/20 00:00 IMPRESSION: 1. No pulmonary emboli. 2. Other nonemergent findings as above. Chest X-Ray 02/03/20 00:00 IMPRESSION: Unchanged radiographic appearance of the chest. Assessment & Plan - Diagnosis (1) Shortness of breath Is this a current diagnosis for this admission?: Yes (2) Troponin level elevated Is this a current diagnosis for this admission?: Yes (3) Asthma exacerbation Qualifiers: Asthma severity: mild Is this a current diagnosis for this admission?: Yes (4) Coronary artery disease Qualifiers: Coronary Disease-Associated Artery/Lesion type: [place] artery Associated angina: without angina Is this a current diagnosis for this admission?: Yes (5) Gastroesophageal reflux Qualifiers: Esophagitis presence: without esophagitis Qualified Code(s): K21.9 - Gastro-esophageal reflux disease without esophagitis Is this a current diagnosis for this admission?: Yes (6) Hyperlipidemia Qualifiers: Hyperlipidemia type: unspecified Qualified Code(s): E78.5 - Hyperlipidemia, unspecified Is this a current diagnosis for this admission?: Yes (7) Hypertension Qualifiers: Hypertension type: essential hypertension Qualified Code(s): I10 - Essential (primary) hypertension Is this a current diagnosis for this admission?: Yes (8) Paraesophageal hiatal hernia Is this a current diagnosis for this admission?: Yes (9) Scoliosis (and kyphoscoliosis), idiopathic Is this a current diagnosis for this admission?: Yes (10) Supraventricular tachycardia Is this a current diagnosis for this admission?: Yes (11) Type 2 myocardial infarction due to arrhythmia Is this a current diagnosis for this admission?: Yes - Time Time Spent with patient: 25-34 minutes Level of Care: IMCU Medications reviewed and adjusted accordingly: Yes Anticipated discharge: Other Within: Other - Plan Summary Plan Summary: Will reduce the IV steroids continues the current IV antibiotics continues follow-up with the cardiology continues the Protonix We will repeat the chest x-ray
--- NOTE | 2020-02-05 14:50 | RADIOLOGY REPORT (SQ) ---
EXAM DESCRIPTION: CHEST SINGLE VIEW IMAGES COMPLETED DATE/TIME: 02/05/2020 2:11 pm REASON FOR STUDY: follow up COMPARISON: AP view of the chest from 02/03/[address] of the chest from 02/02/2020. EXAM PARAMETERS: NUMBER OF VIEWS: One view. TECHNIQUE: An AP view of the chest was obtained. RADIATION DOSE: NA LIMITATIONS: None. FINDINGS: LUNGS AND PLEURA: Unchanged radiographic appearance of the chest. MEDIASTINUM AND HILAR STRUCTURES: Hiatal hernia and Morgagni hernia. HEART AND VASCULAR STRUCTURES: Stable cardiac silhouette. BONES: No acute findings. HARDWARE: None in the chest. OTHER: No other finding. IMPRESSION: Unchanged radiographic appearance of the chest. TECHNICAL DOCUMENTATION: JOB ID: [id number] 2010 [employer]- All Rights Reserved Reading location - IP/workstation name: [email or web address]
[2020-02-05 17:40] LABS: APPEARANCE,URINE CLEAR; BILIRUBIN,URINE NEGATIVE (NEGATIVE); COLOR,URINE YELLOW; GLUCOSE, URINE NEGATIVE (NEGATIVE); KETONES,URINE NEGATIVE (NEGATIVE); LEUKOCYTE ESTERASE,URINE NEGATIVE (NEGATIVE); NITRITE,URINE NEGATIVE (NEGATIVE); PROTEIN,URINE NEGATIVE (NEGATIVE); URINE SPECIFIC GRAVITY 1.009; UROBILINOGEN,URINE NEGATIVE mg/dL (<2.0)
[2020-02-05] MEDS: MONTELUKAST SODIUM 10 MG TABLET PO SCH (21:20)
[2020-02-06] MEDS: IPRATROPIUM/ALBUTEROL 0.5-2.5 MG/3 ML AMPUL NEB PRN (01:25)
[2020-02-06] MEDS: METOPROLOL TARTRATE 25 MG TABLET PO SCH ×2 (05:34→17:20)
[2020-02-06 06:07] LABS: ABSOLUTE LYMPHOCYTES (AUTO) 1.6 10^3/uL (0.5-4.7); ABSOLUTE MONOCYTES (AUTO) 0.6 10^3/uL (0.1-1.4); ABSOLUTE NEUT (AUTO) 5.7 10^3/uL (1.7-8.2); BASOPHILS % (AUTO) 0.3 % (0-2); EOSINOPHILS % (AUTO) 0.5 % (0-6); HEMATOCRIT 38.4 % (36.0-47.0); HEMOGLOBIN 13.1 g/dL (12.0-15.5); LYMPHOCYTES % (AUTO) 19.7 % (13-45); MEAN CORPUSCULAR HEMOGLOBIN 29.3 pg (27.0-33.4); MEAN CORPUSCULAR VOLUME 86 fl (80-97); MONOCYTES % (AUTO) 7.9 % (3-13); PLATELET COUNT 283 10^3/uL (150-450); RED BLOOD COUNT 4.45 10^6/uL (3.72-5.28); RED CELL DISTRIBUTION WIDTH 13.9 % (11.5-14.0); SEGMENTED NEUTROPHILS % (AUTO) 71.6 % (42-78); TOTAL CELLS COUNTED % (AUTO) 100 %; WHITE BLOOD COUNT 7.9 10^3/uL (4.0-10.5)
[2020-02-06 06:31] LABS: BLOOD UREA NITROGEN 15 mg/dL (7-20); CALCIUM 8.6 mg/dL (8.4-10.2); CARBON DIOXIDE 27 mmol/L (22-30); CHLORIDE 99 mmol/L (98-107); GLUCOSE 96 mg/dL (75-110); POTASSIUM 4.2 mmol/L (3.6-5.0)
[2020-02-06 06:34] LABS: ANION GAP 4 (5-19)
[2020-02-06] MEDS: SIMETHICONE 80 MG TAB.CHEW PO SCH ×3 (08:14→17:20)
[2020-02-06] MEDS: IPRATROPIUM/ALBUTEROL 0.5-2.5 MG/3 ML AMPUL NEB SCH ×4 (08:53→20:41)
--- NOTE | 2020-02-06 10:42 | EKG REPORT ---
SEVERITY:- ABNORMAL ECG - SINUS RHYTHM REPOL ABNRM SUGGESTS ISCHEMIA, ANT-LAT LEADS BORDERLINE PROLONGED QT INTERVAL : Confirmed by: Mohsen You MD 06-Feb-2020 10:41:05
--- NOTE | 2020-02-06 10:42 | EKG REPORT ---
SEVERITY:- DEFECTIVE ECG - 11 LEADS ARE MISSING : Confirmed by: Mohsen You MD 06-Feb-2020 10:41:49
[2020-02-06] MEDS: GUAIFENESIN 600 MG TABLET.SA PO SCH ×2 (10:57→17:20)
[2020-02-06] MEDS: DOCUSATE SODIUM 100 MG CAPSULE PO SCH ×2 (10:57→17:20)
[2020-02-06] MEDS: PANTOPRAZOLE SODIUM 40 MG VIAL IV SCH ×2 (10:57→21:29)
[2020-02-06] MEDS: POLYETHYLENE GLYCOL 3350 POWDER 17 GM/1 PACKET PO SCH (10:57)
[2020-02-06] MEDS: CEFEPIME 1 GM/D5W RTU 1 GM/50 ML RTUPB IV SCH ×2 (10:57→21:29)
[2020-02-06] MEDS: ASPIRIN 325 MG TABLET PO SCH (10:57)
[2020-02-06] MEDS: ENOXAPARIN SODIUM INJ 40 MG/0.4 ML DISP.SYRIN SUBCUT SCH (10:58)
[2020-02-06] MEDS: METHYLPREDNISOLONE INJ 40 MG/1 ML SDV IV SCH (10:58)
--- NOTE | 2020-02-06 17:28 | PDOC PROGRESS REPORT ---
Subjective Progress Note for:: 02/06/20 Subjective:: Patient seen by the bedside, she said she feels better, complains of constipation Reason For Visit: SOB/ELEVATED TROPONIN Physical Exam Vital Signs: Temp Pulse Resp BP Pulse Ox 97.7 F 80 19 117/63 93 02/06/20 11:42 02/06/20 14:00 02/06/20 12:49 02/06/20 11:42 02/06/20 12:49 Intake & Output 02/05/20 02/06/20 02/07/20 06:59 06:59 06:59 Intake Total 720 971 470 Output Total 1900 1775 580 Balance -1180 -804 -110 Weight 62.4 kg 61.6 kg General appearance: PRESENT: no acute distress Eye exam: PRESENT: PERRLA Respiratory exam: PRESENT: clear to auscultation candelario Cardiovascular exam: PRESENT: +S1, +S2 GI/Abdominal exam: PRESENT: soft Neurological exam: PRESENT: alert Results Laboratory Results: 02/06/20 05:01 02/06/20 05:01 02/05/20 02/06/20 02/06/20 15:18 05:01 05:01 WBC 7.9 RBC 4.45 Hgb 13.1 Hct 38.4 MCV 86 MCH 29.3 MCHC 34.0 RDW 13.9 Plt Count 283 Seg Neutrophils % 71.6 Sodium 129.6 L Potassium 4.2 Chloride 99 Carbon Dioxide 27 Anion Gap 4 L BUN 15 Creatinine 0.56 Est GFR ( Amer) > 60 Glucose 96 Calcium 8.6 Urine Color YELLOW Urine Appearance CLEAR Urine pH 8.0 Ur Specific [place] 1.009 Urine Protein NEGATIVE Urine Glucose (UA) NEGATIVE Urine Ketones NEGATIVE Urine Blood LARGE H Urine Nitrite NEGATIVE Ur Leukocyte Esterase NEGATIVE Urine WBC (Auto) 2 Urine RBC (Auto) 13 02/02/20 02/02/20 02/02/20 03:23 06:31 08:45 Creatine Kinase 57 CK-MB (CK-2) Troponin I 0.055 0.164 NT-Pro-B Natriuret Pep 506 H 02/02/20 02/02/20 02/02/20 08:45 15:29 15:29 Creatine Kinase 69 CK-MB (CK-2) 2.71 4.57 H Troponin I 0.295 0.785 NT-Pro-B Natriuret Pep 02/02/20 02/02/20 21:36 21:36 Creatine Kinase 81 CK-MB (CK-2) 4.82 H Troponin I 0.763 NT-Pro-B Natriuret Pep Impressions: Abdomen/Pelvis CT 02/02/20 00:00 IMPRESSION: 1. No acute intra-abdominal abnormality. 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 3. Colonic diverticulosis without diverticulitis. 4. 2.2 x 2 cm round cystic lesion in the left adnexum (image 56 of series 2). Given the age of the patient correlation with an ultrasound is recommended. 5. Stable left adrenal nodule that measures 2 x 1.5 cm. Chest/Abdomen CTA 02/02/20 00:00 IMPRESSION: 1. No pulmonary emboli. 2. Other nonemergent findings as above. Chest X-Ray 02/05/20 00:00 IMPRESSION: Unchanged radiographic appearance of the chest. Assessment & Plan - Diagnosis (1) Asthma exacerbation Qualifiers: Asthma severity: unspecified severity Asthma persistence: unspecified Qualified Code(s): J45.901 - Unspecified asthma with (acute) exacerbation Is this a current diagnosis for this admission?: Yes Plan: Continue present treatment - Time Time Spent with patient: 25-34 minutes Level of Care: [facility]
[2020-02-06] MEDS: MONTELUKAST SODIUM 10 MG TABLET PO SCH (21:29)
[2020-02-06] MEDS: MAG HYDROX/AL HYDROX/SIMETH SUSP 30 ML UDCUP PO PRN (21:29)
--- NOTE | 2020-02-06 22:22 | Progress Note ---
Provider Note Provider Note: CARDIOLOGY PROGRESS NOTE by Dr. Peg Trujillo on 02/06/2020. SUBJECTIVE: The patient denies any shortness of breath. There is no chest pain or discomfort. There is no recurrence of SVT. There is no TIA CVA symptoms. Her appetite is good. PHYSICAL EXAMINATION: Patient is a frail build but in no acute distress. Selected Entries 02/06/20 11:42 Temperature 97.7 F Temperature Oral Source Pulse Rate 62 Respiratory 18 Rate Blood Pressure 117/63 Blood Pressure 81 Mean BP Location Left Arm BP Position Supine O2 Sat by Pulse 93 Oximetry Oxygen Delivery Room Air Method Head:Is atraumatic normocephalic. EYES: Pupils are equal round regular reactive to light accommodation. Extraocular movements are normal. There is no visual pallor. There is no scleral icterus. EARS: Tympanic membranes are intact external auditory canals are clear. NOSE: There is no deviated nasal septum. There is no inflammation of the nasal mucous membrane. MOUTH: Mucous membranes of mouth are moist. Tongue is moist. There is no ulcers. There is no bleeding from the gums. THROAT: There is no redness of the oropharynx. There is no exudates. NECK: Is supple. There is no JVD. Carotids are equal there is no bruit. There is no lymphadenopathy. There is no goiter. There is no accessory muscles of respiration use. Trachea central. LUNGS: Clear without any rhonchi rales or wheezing. Bowel sounds are heard in the left front of the chest. HEART: S1-S2 is heard. There is no S3 gallop. There is no S4 gallop. There is systolic murmur left sternal border and apex there is no rub. ABDOMEN: Soft. Nontender there is no hepatospleno megaly. Bowel sounds are well heard. EXTREMITIES: Femorals are diminished. There is no femoral bruits. Leg pulses are diminished. There is no pedal edema. There is no DVT or cellulitis. There is no femoral bruits. There is no cyanosis or clubbing. GREEN MARKETER: The patient is conscious slightly drowsy. With no focal deficits. PSYCHIATRIC: The patient's judgment and insight are intact his affect is normal. Abdomen/Pelvis CT 02/02/20 00:00 IMPRESSION: 1. No acute intra-abdominal abnormality. 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 3. Colonic diverticulosis without diverticulitis. 4. 2.2 x 2 cm round cystic lesion in the left adnexum (image 56 of series 2). Given the age of the patient correlation with an ultrasound is recommended. 5. Stable left adrenal nodule that measures 2 x 1.5 cm. Chest X-Ray 02/02/20 00:00 IMPRESSION: Stable chest, as above copyright 2010 [employer]- All Rights Reserved Chest/Abdomen CTA 02/02/20 00:00 IMPRESSION: 1. No pulmonary emboli. 2. Other nonemergent findings as above. Chest X-Ray 02/02/20 02:19 IMPRESSION: No acute cardiopulmonary process copyright 2010 [employer]- All Rights Reserved Chest X-Ray 02/03/20 00:00 IMPRESSION: Unchanged radiographic appearance of the chest. Chest X-Ray 02/05/20 00:00 IMPRESSION: Unchanged radiographic appearance of the chest. Labs- All tests 24 hr 02/07/20 06:37 Sodium 131.5 L Potassium 4.4 Chloride 99 Carbon Dioxide 27 Anion Gap 6 BUN 12 Creatinine 0.53 Est GFR ( Amer) > 60 Est GFR (MDRD) Non-Af > 60 Glucose 104 Calcium 9.0 IMPRESSION/RECOMMENDATION: 1. Acute hypoxic respiratory failure. This is most likely secondary to the patient's asthma although not much wheezing. And lung compromise due to herniation of intra-abdominal contents to a diaphragmatic hernia which is large. Would recommend keeping the patient in reverse Trendelenburg position to help gravity minimized the amount of herniation of abdominal contents into the chest. These measures have resulted in resolution of the patient's symptoms and she is very comfortable respiratory failure as resolved. She is back on nasal cannula. 2. SVT: This is most likely secondary to cardiac compromise due to herniation of the intra-abdominal contents into the chest wall. We will start the patient on p.o. metoprolol. The Cardizem drip has been discontinued. 3. Elevated troponin: No evidence of non-ST elevation TN. This is type II TN secondary to supply demand mismatch due to hypoxemia SVT and respiratory failure. 4. Coronary artery disease: No anginal symptoms. 5. 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 6. Hypertension. Seems to be well controlled. Medications reviewed. Medical regimen and management plan discussed with attending physician. Medical decision making is of moderate complexity. 40 minutes spent as patient more than 50% time spent direct patient care. Will follow.
[2020-02-07] MEDS: IPRATROPIUM/ALBUTEROL 0.5-2.5 MG/3 ML AMPUL NEB PRN (00:17)
[2020-02-07] MEDS: METOPROLOL TARTRATE 25 MG TABLET PO SCH ×2 (05:30→17:12)
[2020-02-07] MEDS: MAG HYDROX/AL HYDROX/SIMETH SUSP 30 ML UDCUP PO PRN ×3 (05:33→20:47)
[2020-02-07 07:29] LABS: BLOOD UREA NITROGEN 12 mg/dL (7-20); CARBON DIOXIDE 27 mmol/L (22-30); GLUCOSE 104 mg/dL (75-110)
[2020-02-07 07:37] LABS: CHLORIDE 99 mmol/L (98-107); POTASSIUM 4.4 mmol/L (3.6-5.0)
[2020-02-07 07:39] LABS: ANION GAP 6 (5-19)
[2020-02-07] MEDS: SIMETHICONE 80 MG TAB.CHEW PO SCH ×3 (07:56→17:12)
[2020-02-07] MEDS: IPRATROPIUM/ALBUTEROL 0.5-2.5 MG/3 ML AMPUL NEB SCH ×4 (08:26→20:32)
[2020-02-07] MEDS: POLYETHYLENE GLYCOL 3350 POWDER 17 GM/1 PACKET PO SCH (10:32)
[2020-02-07] MEDS: METHYLPREDNISOLONE INJ 40 MG/1 ML SDV IV SCH (10:32)
[2020-02-07] MEDS: GUAIFENESIN 600 MG TABLET.SA PO SCH ×2 (10:32→17:12)
[2020-02-07] MEDS: DOCUSATE SODIUM 100 MG CAPSULE PO SCH ×2 (10:32→17:12)
[2020-02-07] MEDS: PANTOPRAZOLE SODIUM 40 MG VIAL IV SCH ×2 (10:32→21:17)
[2020-02-07] MEDS: ENOXAPARIN SODIUM INJ 40 MG/0.4 ML DISP.SYRIN SUBCUT SCH (10:33)
[2020-02-07] MEDS: CEFEPIME 1 GM/D5W RTU 1 GM/50 ML RTUPB IV SCH ×2 (10:33→21:16)
[2020-02-07] MEDS: ASPIRIN 325 MG TABLET PO SCH (10:33)
--- NOTE | 2020-02-07 19:14 | PDOC PROGRESS REPORT ---
Subjective Progress Note for:: 02/07/20 Subjective:: Patient complains of constipation Reason For Visit: SOB/ELEVATED TROPONIN Physical Exam Vital Signs: Temp Pulse Resp BP Pulse Ox 97.9 F 70 16 129/74 H 98 02/07/20 16:04 02/07/20 16:29 02/07/20 16:29 02/07/20 16:04 02/07/20 16:29 Intake & Output 02/06/20 02/07/20 02/08/20 06:59 06:59 06:59 Intake Total 971 880 876 Output Total 1775 1680 325 Balance -804 -800 551 Weight 61.6 kg 61.5 kg General appearance: PRESENT: no acute distress Eye exam: PRESENT: PERRLA Respiratory exam: PRESENT: clear to auscultation candelario Cardiovascular exam: PRESENT: +S1, +S2 GI/Abdominal exam: PRESENT: soft Neurological exam: PRESENT: alert Results Laboratory Results: 02/06/20 05:01 02/07/20 06:37 02/07/20 06:37 Sodium 131.5 L Potassium 4.4 Chloride 99 Carbon Dioxide 27 Anion Gap 6 BUN 12 Creatinine 0.53 Est GFR ( Amer) > 60 Glucose 104 Calcium 9.0 02/02/20 02/02/20 02/02/20 03:23 06:31 08:45 Creatine Kinase 57 CK-MB (CK-2) Troponin I 0.055 0.164 NT-Pro-B Natriuret Pep 506 H 02/02/20 02/02/20 02/02/20 08:45 15:29 15:29 Creatine Kinase 69 CK-MB (CK-2) 2.71 4.57 H Troponin I 0.295 0.785 NT-Pro-B Natriuret Pep 02/02/20 02/02/20 21:36 21:36 Creatine Kinase 81 CK-MB (CK-2) 4.82 H Troponin I 0.763 NT-Pro-B Natriuret Pep Impressions: Abdomen/Pelvis CT 02/02/20 00:00 IMPRESSION: 1. No acute intra-abdominal abnormality. 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 3. Colonic diverticulosis without diverticulitis. 4. 2.2 x 2 cm round cystic lesion in the left adnexum (image 56 of series 2). Given the age of the patient correlation with an ultrasound is recommended. 5. Stable left adrenal nodule that measures 2 x 1.5 cm. Chest/Abdomen CTA 02/02/20 00:00 IMPRESSION: 1. No pulmonary emboli. 2. Other nonemergent findings as above. Chest X-Ray 02/05/20 00:00 IMPRESSION: Unchanged radiographic appearance of the chest. Assessment & Plan - Diagnosis (1) Asthma exacerbation Qualifiers: Asthma severity: unspecified severity Asthma persistence: unspecified Qualified Code(s): J45.901 - Unspecified asthma with (acute) exacerbation Is this a current diagnosis for this admission?: Yes (2) Constipation Qualifiers: Constipation type: unspecified constipation type Qualified Code(s): K59.00 - Constipation, unspecified Is this a current diagnosis for this admission?: Yes Plan: Molasses enema - Time Time Spent with patient: 25-34 minutes Level of Care: [facility] Medications reviewed and adjusted accordingly: Yes
[2020-02-07] MEDS: MONTELUKAST SODIUM 10 MG TABLET PO SCH (21:17)
--- NOTE | 2020-02-07 21:31 | Progress Note ---
Provider Note Provider Note: CARDIOLOGY PROGRESS NOTE by Dr. Peg Trujillo on 02/07/2020. OBJECTIVE: The patient when she stepped down from her reverse Trendelenburg position started having some difficulty breathing. This was corrected and the patient now is comfortable. She denies any chest pain or discomfort. There is no PND orthopnea or leg edema. There is no further SVT. There is no ventricular arrhythmias or recurrence of SVT on the monitor. PHYSICAL EXAMINATION: The patient is a frail build. In no acute distress. Selected Entries 02/07/20 11:49 Temperature 97.7 F Temperature Oral Source Pulse Rate 59 L Respiratory 24 H Rate Blood Pressure 136/81 H Blood Pressure 99 Mean BP Location Right Arm BP Position Supine O2 Sat by Pulse 98 Oximetry Oxygen Flow 1.00 Rate Oxygen Delivery Nasal Cannula Method Head:Is atraumatic normocephalic. EYES: Pupils are equal round regular reactive to light accommodation. Extraocular movements are normal. There is no visual pallor. There is no scleral icterus. EARS: Tympanic membranes are intact external auditory canals are clear. NOSE: There is no deviated nasal septum. There is no inflammation of the nasal mucous membrane. MOUTH: Mucous membranes of mouth are moist. Tongue is moist. There is no ulcers. There is no bleeding from the gums. THROAT: There is no redness of the oropharynx. There is no exudates. NECK: Is supple. There is no JVD. Carotids are equal there is no bruit. There is no lymphadenopathy. There is no goiter. There is no accessory muscles of respiration use. Trachea central. LUNGS: Clear without any rhonchi rales or wheezing. Bowel sounds are heard in the left front of the chest. HEART: S1-S2 is heard. There is no S3 gallop. There is no S4 gallop. There is systolic murmur left sternal border and apex there is no rub. ABDOMEN: Soft. Nontender there is no hepatospleno megaly. Bowel sounds are well heard. EXTREMITIES: Femorals are diminished. There is no femoral bruits. Leg pulses are diminished. There is no pedal edema. There is no DVT or cellulitis. There is no femoral bruits. There is no cyanosis or clubbing. SUPERIOR COURT JUSTICE: The patient is conscious slightly drowsy. With no focal deficits. PSYCHIATRIC: The patient's judgment and insight are intact his affect is normal. Labs- Entire Visit 02/02/20 02/02/20 02/02/20 02:55 03:23 03:23 WBC 5.3 RBC 4.20 Hgb 12.4 Hct 36.5 MCV 87 MCH 29.6 MCHC 34.0 RDW 14.0 Plt Count 218 Lymph % (Auto) 12.3 L [place] % (Auto) 5.0 Eos % (Auto) 0.4 Baso % (Auto) 1.0 Absolute Neuts (auto) 4.3 Absolute Lymphs (auto) 0.7 Absolute Monos (auto) 0.3 Absolute Eos (auto) 0.0 Absolute Basos (auto) 0.1 Total Counted Seg Neutrophils % 81.3 H Seg Neuts % (Manual) Lymphocytes % (Manual) Monocytes % (Manual) Eosinophils % (Manual) Basophils % (Manual) Abs Neuts (Manual) Abs Lymphs (Manual) Abs Monocytes (Manual) Absolute Eos (Manual) Abs Basophils (Manual) Platelet Comment Poikilocytosis Anisocytosis Tear Drop Cells Carbonic Acid HCO3/H2CO3 Ratio ABG pH ABG pCO2 ABG pO2 ABG HCO3 ABG Total CO2 ABG O2 Saturation ABG Base Excess FiO2 Sodium 132.6 L Potassium 3.9 Chloride 101 Carbon Dioxide 24 Anion Gap 8 BUN 10 Creatinine 0.57 Est GFR ( Amer) > 60 Est GFR (MDRD) Non-Af > 60 Glucose 124 H Calcium 9.4 Magnesium 2.0 Total Bilirubin 0.5 Direct Bilirubin 0.0 Neonat Total Bilirubin Not Reportable Neonat Direct Bilirubin Not Reportable Neonat Indirect Bili Not Reportable AST 37 H ALT 16 Alkaline Phosphatase 59 Creatine Kinase CK-MB (CK-2) Troponin I NT-Pro-B Natriuret Pep Total Protein 6.4 Albumin 3.9 Urine Color YELLOW Urine Appearance SLIGHTLY-CLOUDY Urine pH 5.0 Ur Specific [place] 1.024 Urine Protein 100 H Urine Glucose (UA) NEGATIVE Urine Ketones 20 H Urine Blood SMALL H Urine Nitrite NEGATIVE Urine Bilirubin NEGATIVE Urine Urobilinogen NEGATIVE Ur Leukocyte Esterase SMALL H Urine WBC (Auto) 14 Urine RBC (Auto) 6 U Hyaline Cast (Auto) 11 Urine Bacteria (Auto) TRACE Squamous Epi Cells Auto 6 Urine Mucus (Auto) FEW Urine Ascorbic Acid NEGATIVE 02/02/20 02/02/20 02/02/20 03:23 06:31 08:45 WBC RBC Hgb Hct MCV MCH MCHC RDW Plt Count Lymph % (Auto) [place] % (Auto) Eos % (Auto) Baso % (Auto) Absolute Neuts (auto) Absolute Lymphs (auto) Absolute Monos (auto) Absolute Eos (auto) Absolute Basos (auto) Total Counted Seg Neutrophils % Seg Neuts % (Manual) Lymphocytes % (Manual) Monocytes % (Manual) Eosinophils % (Manual) Basophils % (Manual) Abs Neuts (Manual) Abs Lymphs (Manual) Abs Monocytes (Manual) Absolute Eos (Manual) Abs Basophils (Manual) Platelet Comment Poikilocytosis Anisocytosis Tear Drop Cells Carbonic Acid HCO3/H2CO3 Ratio ABG pH ABG pCO2 ABG pO2 ABG HCO3 ABG Total CO2 ABG O2 Saturation ABG Base Excess FiO2 Sodium 130.0 L Potassium 4.6 Chloride 101 Carbon Dioxide 21 L Anion Gap 8 BUN 12 Creatinine 0.46 L Est GFR ( Amer) > 60 Est GFR (MDRD) Non-Af > 60 Glucose 138 H Calcium 9.3 Magnesium Total Bilirubin Direct Bilirubin Neonat Total Bilirubin Neonat Direct Bilirubin Neonat Indirect Bili AST ALT Alkaline Phosphatase Creatine Kinase 57 CK-MB (CK-2) Troponin I 0.055 0.164 NT-Pro-B Natriuret Pep 506 H Total Protein Albumin Urine Color Urine Appearance Urine pH Ur Specific [place] Urine Protein Urine Glucose (UA) Urine Ketones Urine Blood Urine Nitrite Urine Bilirubin Urine Urobilinogen Ur Leukocyte Esterase Urine WBC (Auto) Urine RBC (Auto) U Hyaline Cast (Auto) Urine Bacteria (Auto) Squamous Epi Cells Auto Urine Mucus (Auto) Urine Ascorbic Acid 02/02/20 02/02/20 02/02/20 08:45 15:29 15:29 WBC RBC Hgb Hct MCV MCH MCHC RDW Plt Count Lymph % (Auto) [place] % (Auto) Eos % (Auto) Baso % (Auto) Absolute Neuts (auto) Absolute Lymphs (auto) Absolute Monos (auto) Absolute Eos (auto) Absolute Basos (auto) Total Counted Seg Neutrophils % Seg Neuts % (Manual) Lymphocytes % (Manual) Monocytes % (Manual) Eosinophils % (Manual) Basophils % (Manual) Abs Neuts (Manual) Abs Lymphs (Manual) Abs Monocytes (Manual) Absolute Eos (Manual) Abs Basophils (Manual) Platelet Comment Poikilocytosis Anisocytosis Tear Drop Cells Carbonic Acid HCO3/H2CO3 Ratio ABG pH ABG pCO2 ABG pO2 ABG HCO3 ABG Total CO2 ABG O2 Saturation ABG Base Excess FiO2 Sodium Potassium Chloride Carbon Dioxide Anion Gap BUN Creatinine Est GFR ( Amer) Est GFR (MDRD) Non-Af Glucose Calcium Magnesium Total Bilirubin Direct Bilirubin Neonat Total Bilirubin Neonat Direct Bilirubin Neonat Indirect Bili AST ALT Alkaline Phosphatase Creatine Kinase 69 CK-MB (CK-2) 2.71 4.57 H Troponin I 0.295 0.785 NT-Pro-B Natriuret Pep Total Protein Albumin Urine Color Urine Appearance Urine pH Ur Specific [place] Urine Protein Urine Glucose (UA) Urine Ketones Urine Blood Urine Nitrite Urine Bilirubin Urine Urobilinogen Ur Leukocyte Esterase Urine WBC (Auto) Urine RBC (Auto) U Hyaline Cast (Auto) Urine Bacteria (Auto) Squamous Epi Cells Auto Urine Mucus (Auto) Urine Ascorbic Acid 02/02/20 02/02/20 02/02/20 21:36 21:36 22:22 WBC RBC Hgb Hct MCV MCH MCHC RDW Plt Count Lymph % (Auto) [place] % (Auto) Eos % (Auto) Baso % (Auto) Absolute Neuts (auto) Absolute Lymphs (auto) Absolute Monos (auto) Absolute Eos (auto) Absolute Basos (auto) Total Counted Seg Neutrophils % Seg Neuts % (Manual) Lymphocytes % (Manual) Monocytes % (Manual) Eosinophils % (Manual) Basophils % (Manual) Abs Neuts (Manual) Abs Lymphs (Manual) Abs Monocytes (Manual) Absolute Eos (Manual) Abs Basophils (Manual) Platelet Comment Poikilocytosis Anisocytosis Tear Drop Cells Carbonic Acid 1.14 HCO3/H2CO3 Ratio 17:1 ABG pH 7.35 ABG pCO2 37.8 ABG pO2 65.5 L ABG HCO3 20.3 ABG Total CO2 21.5 ABG O2 Saturation 92.1 L ABG Base Excess -4.8 FiO2 4L Sodium Potassium Chloride Carbon Dioxide Anion Gap BUN Creatinine Est GFR ( Amer) Est GFR (MDRD) Non-Af Glucose Calcium Magnesium Total Bilirubin Direct Bilirubin Neonat Total Bilirubin Neonat Direct Bilirubin Neonat Indirect Bili AST ALT Alkaline Phosphatase Creatine Kinase 81 CK-MB (CK-2) 4.82 H Troponin I 0.763 NT-Pro-B Natriuret Pep Total Protein Albumin Urine Color Urine Appearance Urine pH Ur Specific [place] Urine Protein Urine Glucose (UA) Urine Ketones Urine Blood Urine Nitrite Urine Bilirubin Urine Urobilinogen Ur Leukocyte Esterase Urine WBC (Auto) Urine RBC (Auto) U Hyaline Cast (Auto) Urine Bacteria (Auto) Squamous Epi Cells Auto Urine Mucus (Auto) Urine Ascorbic Acid 02/03/20 02/03/20 02/03/20 05:56 05:56 05:56 WBC 19.5 H D RBC 4.63 Hgb 13.4 Hct 39.7 MCV 86 MCH 29.1 MCHC 33.9 RDW 14.0 Plt Count 289 Lymph % (Auto) 6.0 L [place] % (Auto) 8.4 Eos % (Auto) 0.0 Baso % (Auto) 0.5 Absolute Neuts (auto) 16.6 H Absolute Lymphs (auto) 1.2 Absolute Monos (auto) 1.6 H Absolute Eos (auto) 0.0 Absolute Basos (auto) 0.1 Total Counted Seg Neutrophils % 85.1 H Seg Neuts % (Manual) Lymphocytes % (Manual) Monocytes % (Manual) Eosinophils % (Manual) Basophils % (Manual) Abs Neuts (Manual) Abs Lymphs (Manual) Abs Monocytes (Manual) Absolute Eos (Manual) Abs Basophils (Manual) Platelet Comment Poikilocytosis Anisocytosis Tear Drop Cells Carbonic Acid HCO3/H2CO3 Ratio ABG pH ABG pCO2 ABG pO2 ABG HCO3 ABG Total CO2 ABG O2 Saturation ABG Base Excess FiO2 Sodium 128.9 L Potassium 4.8 Chloride 97 L Carbon Dioxide 25 Anion Gap 7 BUN 19 Creatinine 0.47 L Est GFR ( Amer) > 60 Est GFR (MDRD) Non-Af > 60 Glucose 113 H Calcium 9.0 Magnesium 2.1 Total Bilirubin Direct Bilirubin Neonat Total Bilirubin Neonat Direct Bilirubin Neonat Indirect Bili AST ALT Alkaline Phosphatase Creatine Kinase CK-MB (CK-2) Troponin I NT-Pro-B Natriuret Pep Total Protein Albumin Cancelled Urine Color Urine Appearance Urine pH Ur Specific [place] Urine Protein Urine Glucose (UA) Urine Ketones Urine Blood Urine Nitrite Urine Bilirubin Urine Urobilinogen Ur Leukocyte Esterase Urine WBC (Auto) Urine RBC (Auto) U Hyaline Cast (Auto) Urine Bacteria (Auto) Squamous Epi Cells Auto Urine Mucus (Auto) Urine Ascorbic Acid 02/03/20 02/03/20 02/04/20 08:57 14:35 06:11 WBC 19.8 H RBC 4.58 Hgb 13.2 Hct 39.3 MCV 86 MCH 28.9 MCHC 33.6 RDW 14.3 H Plt Count 306 Lymph % (Auto) Not Reportable [place] % (Auto) Not Reportable Eos % (Auto) Not Reportable Baso % (Auto) Not Reportable Absolute Neuts (auto) Not Reportable Absolute Lymphs (auto) Not Reportable Absolute Monos (auto) Not Reportable Absolute Eos (auto) Not Reportable Absolute Basos (auto) Not Reportable Total Counted 100 Seg Neutrophils % Not Reportable Seg Neuts % (Manual) 91 H Lymphocytes % (Manual) 2 L Monocytes % (Manual) 7 Eosinophils % (Manual) 0 Basophils % (Manual) 0 Abs Neuts (Manual) 18.0 H Abs Lymphs (Manual) 0.4 L Abs Monocytes (Manual) 1.4 Absolute Eos (Manual) 0.0 Abs Basophils (Manual) 0.0 Platelet Comment ADEQUATE Poikilocytosis SLIGHT Anisocytosis SLIGHT Tear Drop Cells SLIGHT Carbonic Acid 1.20 HCO3/H2CO3 Ratio 21:1 ABG pH 7.42 ABG pCO2 39.9 ABG pO2 107.6 H ABG HCO3 25.4 H ABG Total CO2 26.6 H ABG O2 Saturation 98.0 ABG Base Excess 0.9 FiO2 100% Sodium Potassium Chloride Carbon Dioxide Anion Gap BUN Creatinine Est GFR ( Amer) Est GFR (MDRD) Non-Af Glucose Calcium Magnesium Total Bilirubin Direct Bilirubin Neonat Total Bilirubin Neonat Direct Bilirubin Neonat Indirect Bili AST ALT Alkaline Phosphatase Creatine Kinase CK-MB (CK-2) Troponin I NT-Pro-B Natriuret Pep Total Protein Albumin Urine Color YELLOW Urine Appearance CLEAR Urine pH 6.0 Ur Specific [place] 1.016 Urine Protein 30 H Urine Glucose (UA) 50 H Urine Ketones 20 H Urine Blood LARGE H Urine Nitrite NEGATIVE Urine Bilirubin NEGATIVE Urine Urobilinogen NEGATIVE Ur Leukocyte Esterase NEGATIVE Urine WBC (Auto) 12 Urine RBC (Auto) >182 U Hyaline Cast (Auto) Urine Bacteria (Auto) TRACE Squamous Epi Cells Auto Urine Mucus (Auto) RARE Urine Ascorbic Acid NEGATIVE 02/04/20 02/05/20 02/05/20 06:11 05:50 05:50 WBC 14.2 H RBC 4.50 Hgb 13.1 Hct 38.7 MCV 86 MCH 29.1 MCHC 33.9 RDW 14.2 H Plt Count 282 Lymph % (Auto) 8.8 L [place] % (Auto) 6.0 Eos % (Auto) 0.0 Baso % (Auto) 0.3 Absolute Neuts (auto) 12.0 H Absolute Lymphs (auto) 1.3 Absolute Monos (auto) 0.9 Absolute Eos (auto) 0.0 Absolute Basos (auto) 0.0 Total Counted Seg Neutrophils % 84.9 H Seg Neuts % (Manual) Lymphocytes % (Manual) Monocytes % (Manual) Eosinophils % (Manual) Basophils % (Manual) Abs Neuts (Manual) Abs Lymphs (Manual) Abs Monocytes (Manual) Absolute Eos (Manual) Abs Basophils (Manual) Platelet Comment Poikilocytosis Anisocytosis Tear Drop Cells Carbonic Acid HCO3/H2CO3 Ratio ABG pH ABG pCO2 ABG pO2 ABG HCO3 ABG Total CO2 ABG O2 Saturation ABG Base Excess FiO2 Sodium 127.1 L 129.2 L Potassium 5.0 4.5 Chloride 95 L 97 L Carbon Dioxide 23 26 Anion Gap 9 6 BUN 22 H 17 Creatinine 0.59 0.55 Est GFR ( Amer) > 60 > 60 Est GFR (MDRD) Non-Af > 60 > 60 Glucose 116 H 108 Calcium 9.1 8.8 Magnesium 2.4 H 2.4 H Total Bilirubin Direct Bilirubin Neonat Total Bilirubin Neonat Direct Bilirubin Neonat Indirect Bili AST ALT Alkaline Phosphatase Creatine Kinase CK-MB (CK-2) Troponin I NT-Pro-B Natriuret Pep Total Protein Albumin Urine Color Urine Appearance Urine pH Ur Specific [place] Urine Protein Urine Glucose (UA) Urine Ketones Urine Blood Urine Nitrite Urine Bilirubin Urine Urobilinogen Ur Leukocyte Esterase Urine WBC (Auto) Urine RBC (Auto) U Hyaline Cast (Auto) Urine Bacteria (Auto) Squamous Epi Cells Auto Urine Mucus (Auto) Urine Ascorbic Acid 02/05/20 02/06/20 02/06/20 15:18 05:01 05:01 WBC 7.9 RBC 4.45 Hgb 13.1 Hct 38.4 MCV 86 MCH 29.3 MCHC 34.0 RDW 13.9 Plt Count 283 Lymph % (Auto) 19.7 [place] % (Auto) 7.9 Eos % (Auto) 0.5 Baso % (Auto) 0.3 Absolute Neuts (auto) 5.7 Absolute Lymphs (auto) 1.6 Absolute Monos (auto) 0.6 Absolute Eos (auto) 0.0 Absolute Basos (auto) 0.0 Total Counted Seg Neutrophils % 71.6 Seg Neuts % (Manual) Lymphocytes % (Manual) Monocytes % (Manual) Eosinophils % (Manual) Basophils % (Manual) Abs Neuts (Manual) Abs Lymphs (Manual) Abs Monocytes (Manual) Absolute Eos (Manual) Abs Basophils (Manual) Platelet Comment Poikilocytosis Anisocytosis Tear Drop Cells Carbonic Acid HCO3/H2CO3 Ratio ABG pH ABG pCO2 ABG pO2 ABG HCO3 ABG Total CO2 ABG O2 Saturation ABG Base Excess FiO2 Sodium 129.6 L Potassium 4.2 Chloride 99 Carbon Dioxide 27 Anion Gap 4 L BUN 15 Creatinine 0.56 Est GFR ( Amer) > 60 Est GFR (MDRD) Non-Af > 60 Glucose 96 Calcium 8.6 Magnesium Total Bilirubin Direct Bilirubin Neonat Total Bilirubin Neonat Direct Bilirubin Neonat Indirect Bili AST ALT Alkaline Phosphatase Creatine Kinase CK-MB (CK-2) Troponin I NT-Pro-B Natriuret Pep Total Protein Albumin Urine Color YELLOW Urine Appearance CLEAR Urine pH 8.0 Ur Specific [place] 1.009 Urine Protein NEGATIVE Urine Glucose (UA) NEGATIVE Urine Ketones NEGATIVE Urine Blood LARGE H Urine Nitrite NEGATIVE Urine Bilirubin NEGATIVE Urine Urobilinogen NEGATIVE Ur Leukocyte Esterase NEGATIVE Urine WBC (Auto) 2 Urine RBC (Auto) 13 U Hyaline Cast (Auto) Urine Bacteria (Auto) Squamous Epi Cells Auto Urine Mucus (Auto) RARE Urine Ascorbic Acid NEGATIVE 02/07/20 06:37 WBC RBC Hgb Hct MCV MCH MCHC RDW Plt Count Lymph % (Auto) [place] % (Auto) Eos % (Auto) Baso % (Auto) Absolute Neuts (auto) Absolute Lymphs (auto) Absolute Monos (auto) Absolute Eos (auto) Absolute Basos (auto) Total Counted Seg Neutrophils % Seg Neuts % (Manual) Lymphocytes % (Manual) Monocytes % (Manual) Eosinophils % (Manual) Basophils % (Manual) Abs Neuts (Manual) Abs Lymphs (Manual) Abs Monocytes (Manual) Absolute Eos (Manual) Abs Basophils (Manual) Platelet Comment Poikilocytosis Anisocytosis Tear Drop Cells Carbonic Acid HCO3/H2CO3 Ratio ABG pH ABG pCO2 ABG pO2 ABG HCO3 ABG Total CO2 ABG O2 Saturation ABG Base Excess FiO2 Sodium 131.5 L Potassium 4.4 Chloride 99 Carbon Dioxide 27 Anion Gap 6 BUN 12 Creatinine 0.53 Est GFR ( Amer) > 60 Est GFR (MDRD) Non-Af > 60 Glucose 104 Calcium 9.0 Magnesium Total Bilirubin Direct Bilirubin Neonat Total Bilirubin Neonat Direct Bilirubin Neonat Indirect Bili AST ALT Alkaline Phosphatase Creatine Kinase CK-MB (CK-2) Troponin I NT-Pro-B Natriuret Pep Total Protein Albumin Urine Color Urine Appearance Urine pH Ur Specific [place] Urine Protein Urine Glucose (UA) Urine Ketones Urine Blood Urine Nitrite Urine Bilirubin Urine Urobilinogen Ur Leukocyte Esterase Urine WBC (Auto) Urine RBC (Auto) U Hyaline Cast (Auto) Urine Bacteria (Auto) Squamous Epi Cells Auto Urine Mucus (Auto) Urine Ascorbic Acid Abdomen/Pelvis CT 02/02/20 00:00 IMPRESSION: 1. No acute intra-abdominal abnormality. 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 3. Colonic diverticulosis without diverticulitis. 4. 2.2 x 2 cm round cystic lesion in the left adnexum (image 56 of series 2). Given the age of the patient correlation with an ultrasound is recommended. 5. Stable left adrenal nodule that measures 2 x 1.5 cm. Chest X-Ray 02/02/20 00:00 IMPRESSION: Stable chest, as above copyright 2010 [employer]- All Rights Reserved Chest/Abdomen CTA 02/02/20 00:00 IMPRESSION: 1. No pulmonary emboli. 2. Other nonemergent findings as above. Chest X-Ray 02/02/20 02:19 IMPRESSION: No acute cardiopulmonary process copyright 2010 [employer]- All Rights Reserved Chest X-Ray 02/03/20 00:00 IMPRESSION: Unchanged radiographic appearance of the chest. Chest X-Ray 02/05/20 00:00 IMPRESSION: Unchanged radiographic appearance of the chest. IMPRESSION/RECOMMENDATION: 1. Acute hypoxic respiratory failure. This is most likely secondary to the patient's asthma although not much wheezing. And lung compromise due to herniation of intra-abdominal contents to a diaphragmatic hernia which is large. Would recommend keeping the patient in reverse Trendelenburg position to help gravity minimized the amount of herniation of abdominal contents into the chest. These measures have resulted in resolution of the patient's symptoms and she is very comfortable respiratory failure as resolved. She is back on nasal cannula. 2. SVT: This is most likely secondary to cardiac compromise due to herniation of the intra-abdominal contents into the chest wall. We will start the patient on p.o. metoprolol. The Cardizem drip has been discontinued. 3. Elevated troponin: No evidence of non-ST elevation FL. This is type II FL secondary to supply demand mismatch due to hypoxemia SVT and respiratory failure. 4. Coronary artery disease: No anginal symptoms. 5. 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 6. Hypertension. Seems to be well controlled. Medications reviewed. Medical regimen and management plan discussed with attending provider on the case. Medical decision making is of moderate complexity. 40 minutes spent with patient more than 50% time spent direct patient care. Will follow.
[2020-02-08 03:30] LABS: APPEARANCE,URINE CLEAR; BILIRUBIN,URINE NEGATIVE (NEGATIVE); COLOR,URINE STRAW; GLUCOSE, URINE NEGATIVE (NEGATIVE); KETONES,URINE NEGATIVE (NEGATIVE); LEUKOCYTE ESTERASE,URINE NEGATIVE (NEGATIVE); NITRITE,URINE NEGATIVE (NEGATIVE); PROTEIN,URINE NEGATIVE (NEGATIVE); URINE SPECIFIC GRAVITY 1.005; UROBILINOGEN,URINE NEGATIVE mg/dL (<2.0)
[2020-02-08] MEDS: IPRATROPIUM/ALBUTEROL 0.5-2.5 MG/3 ML AMPUL NEB PRN (03:35)
[2020-02-08] MEDS: METOPROLOL TARTRATE 25 MG TABLET PO SCH ×2 (05:02→17:27)
[2020-02-08 06:05] LABS: BLOOD UREA NITROGEN 12 mg/dL (7-20); CALCIUM 9.3 mg/dL (8.4-10.2); CARBON DIOXIDE 29 mmol/L (22-30); CHLORIDE 98 mmol/L (98-107); GLUCOSE 108 mg/dL (75-110); POTASSIUM 4.2 mmol/L (3.6-5.0)
[2020-02-08 06:07] LABS: ANION GAP 3 (5-19)
[2020-02-08] MEDS: IPRATROPIUM/ALBUTEROL 0.5-2.5 MG/3 ML AMPUL NEB SCH ×4 (07:37→20:34)
--- NOTE | 2020-02-08 09:11 | PDOC PROGRESS REPORT ---
Subjective Progress Note for:: 02/08/20 Subjective:: Patient is feeling better positive bowel movement after the enema Patient's denied any chest pain denied any shortness of the breath No fever no chills Reason For Visit: SOB/ELEVATED TROPONIN Physical Exam Vital Signs: Temp Pulse Resp BP Pulse Ox 98.2 F 75 32 H 122/69 96 02/08/20 08:49 02/08/20 08:49 02/08/20 08:49 02/08/20 08:49 02/08/20 08:49 Intake & Output 02/07/20 02/08/20 02/09/20 06:59 06:59 06:59 Intake Total 880 1326 Output Total 1680 1700 Balance -800 -374 Weight 61.5 kg 61.1 kg General appearance: PRESENT: no acute distress, well-developed, well-nourished Head exam: PRESENT: atraumatic, normocephalic Eye exam: PRESENT: conjunctiva pink, EOMI, PERRLA. ABSENT: scleral icterus Ear exam: PRESENT: normal external ear exam Mouth exam: PRESENT: moist, tongue midline Neck exam: PRESENT: full ROM. ABSENT: carotid bruit, JVD, lymphadenopathy, thyromegaly Respiratory exam: PRESENT: clear to auscultation [place] Cardiovascular exam: PRESENT: RRR. ABSENT: diastolic murmur, rubs, systolic murmur Pulses: PRESENT: normal [place] pedis pul, +2 pedal pulses bilateral Vascular exam: PRESENT: normal capillary refill GI/Abdominal exam: PRESENT: normal bowel sounds, soft. ABSENT: distended, guarding, mass, organolmegaly, rebound, tenderness Rectal exam: PRESENT: deferred Musculoskeletal exam: PRESENT: ambulatory Neurological exam: PRESENT: alert, awake, oriented to person, oriented to place, oriented to time, oriented to situation, CN II-XII grossly intact. ABSENT: motor sensory deficit Psychiatric exam: PRESENT: appropriate affect, normal mood. ABSENT: homicidal ideation, suicidal ideation Skin exam: PRESENT: dry, intact, warm. ABSENT: cyanosis, rash Results Laboratory Results: 02/06/20 05:01 02/08/20 05:21 02/08/20 02/08/20 02:45 05:21 Sodium 130.4 L Potassium 4.2 Chloride 98 Carbon Dioxide 29 Anion Gap 3 L BUN 12 Creatinine 0.58 Est GFR ( Amer) > 60 Glucose 108 Calcium 9.3 Urine Color STRAW Urine Appearance CLEAR Urine pH 8.0 Ur Specific [place] 1.005 Urine Protein NEGATIVE Urine Glucose (UA) NEGATIVE Urine Ketones NEGATIVE Urine Blood SMALL H Urine Nitrite NEGATIVE Ur Leukocyte Esterase NEGATIVE Urine WBC (Auto) 0 Urine RBC (Auto) 5 02/02/20 02/02/20 02/02/20 03:23 06:31 08:45 Creatine Kinase 57 CK-MB (CK-2) Troponin I 0.055 0.164 NT-Pro-B Natriuret Pep 506 H 02/02/20 02/02/20 02/02/20 08:45 15:29 15:29 Creatine Kinase 69 CK-MB (CK-2) 2.71 4.57 H Troponin I 0.295 0.785 NT-Pro-B Natriuret Pep 02/02/20 02/02/20 21:36 21:36 Creatine Kinase 81 CK-MB (CK-2) 4.82 H Troponin I 0.763 NT-Pro-B Natriuret Pep Impressions: Abdomen/Pelvis CT 02/02/20 00:00 IMPRESSION: 1. No acute intra-abdominal abnormality. 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 3. Colonic diverticulosis without diverticulitis. 4. 2.2 x 2 cm round cystic lesion in the left adnexum (image 56 of series 2). Given the age of the patient correlation with an ultrasound is recommended. 5. Stable left adrenal nodule that measures 2 x 1.5 cm. Chest/Abdomen CTA 02/02/20 00:00 IMPRESSION: 1. No pulmonary emboli. 2. Other nonemergent findings as above. Chest X-Ray 02/05/20 00:00 IMPRESSION: Unchanged radiographic appearance of the chest. Assessment & Plan - Diagnosis (1) Shortness of breath Is this a current diagnosis for this admission?: Yes (2) Troponin level elevated Is this a current diagnosis for this admission?: Yes (3) Asthma exacerbation Qualifiers: Asthma severity: mild Is this a current diagnosis for this admission?: Yes (4) Coronary artery disease Qualifiers: Coronary Disease-Associated Artery/Lesion type: [place] artery Associated angina: without angina Is this a current diagnosis for this admission?: Yes (5) Gastroesophageal reflux Qualifiers: Esophagitis presence: without esophagitis Qualified Code(s): K21.9 - Gastro-esophageal reflux disease without esophagitis Is this a current diagnosis for this admission?: Yes (6) Hyperlipidemia Qualifiers: Hyperlipidemia type: unspecified Qualified Code(s): E78.5 - Hyperlipidemia, unspecified Is this a current diagnosis for this admission?: Yes (7) Hypertension Qualifiers: Hypertension type: essential hypertension Qualified Code(s): I10 - Essential (primary) hypertension Is this a current diagnosis for this admission?: Yes (8) Paraesophageal hiatal hernia Is this a current diagnosis for this admission?: Yes (9) Scoliosis (and kyphoscoliosis), idiopathic Is this a current diagnosis for this admission?: Yes (10) Supraventricular tachycardia Is this a current diagnosis for this admission?: Yes (11) Type 2 myocardial infarction due to arrhythmia Is this a current diagnosis for this admission?: Yes - Time Time Spent with patient: 25-34 minutes Level of Care: IMCU Medications reviewed and adjusted accordingly: Yes Anticipated discharge: Home with Homehealth Within: Other - Plan Summary Plan Summary: We will discontinues the García catheter Physical therapy evaluations Repeat chest x-ray If the patient is remained stable hopefully discharge home health and physical therapy while patients prefer to go home
[2020-02-08] MEDS: ENOXAPARIN SODIUM INJ 40 MG/0.4 ML DISP.SYRIN SUBCUT SCH (09:17)
[2020-02-08] MEDS: DOCUSATE SODIUM 100 MG CAPSULE PO SCH ×2 (09:17→17:27)
[2020-02-08] MEDS: POLYETHYLENE GLYCOL 3350 POWDER 17 GM/1 PACKET PO SCH (09:17)
[2020-02-08] MEDS: PANTOPRAZOLE SODIUM 40 MG TABLET.DR PO SCH ×2 (09:17→17:27)
[2020-02-08] MEDS: CEFEPIME 1 GM/D5W RTU 1 GM/50 ML RTUPB IV SCH ×2 (09:17→21:33)
[2020-02-08] MEDS: SIMETHICONE 80 MG TAB.CHEW PO SCH ×3 (09:17→17:27)
[2020-02-08] MEDS: GUAIFENESIN 600 MG TABLET.SA PO SCH ×2 (09:17→17:27)
--- NOTE | 2020-02-08 10:07 | RADIOLOGY REPORT (SQ) ---
EXAM DESCRIPTION: CHEST SINGLE VIEW IMAGES COMPLETED DATE/TIME: 02/08/2020 9:31 am REASON FOR STUDY: sob COMPARISON: AP view of the chest from 02/05/2020. EXAM PARAMETERS: NUMBER OF VIEWS: One view. TECHNIQUE: An AP view of the chest was obtained. RADIATION DOSE: NA LIMITATIONS: None. FINDINGS: LUNGS AND PLEURA: Unchanged radiographic appearance of the lungs and pleura. MEDIASTINUM AND HILAR STRUCTURES: Stable mediastinal and hilar contours.. HEART AND VASCULAR STRUCTURES: Stable enlarged cardiac silhouette. BONES: No acute findings. HARDWARE: None in the chest. OTHER: No other finding. IMPRESSION: Unchanged radiographic appearance of the chest. TECHNICAL DOCUMENTATION: JOB ID: [id number] 2010 [employer]- All Rights Reserved Reading location - IP/workstation name: [email or web address]
[2020-02-08] MEDS ORDERED: ONDANSETRON HCL INJ/PF 4 MG/2 ML SDV IV PRN (15:00)
--- NOTE | 2020-02-08 16:32 | Progress Note ---
Provider Note Provider Note: CARDIOLOGY PROGRESS NOTE by Dr. Peg Trujillo on 02/08/2020. Subjective: The patient denies any further chest pain or discomfort. There is no shortness of breath. There is no SVT. There is no PND orthopnea. There is no atrioventricular there is seen on the monitor. There is no TIA CVA symptoms. PHYSICAL EXAMINATION: The patient is a frail build in no acute distress. Selected Entries 02/08/20 11:04 Temperature 97.9 F Temperature Oral Source Pulse Rate 73 Respiratory 22 H Rate Blood Pressure 134/82 H Blood Pressure 99 Mean BP Location Right Arm BP Position Sitting O2 Sat by Pulse 97 Oximetry Oxygen Delivery Room Air Method Head:Is atraumatic normocephalic. EYES: Pupils are equal round regular reactive to light accommodation. Extraocular movements are normal. There is no visual pallor. There is no scleral icterus. EARS: Tympanic membranes are intact external auditory canals are clear. NOSE: There is no deviated nasal septum. There is no inflammation of the nasal mucous membrane. MOUTH: Mucous membranes of mouth are moist. Tongue is moist. There is no ulcers. There is no bleeding from the gums. THROAT: There is no redness of the oropharynx. There is no exudates. NECK: Is supple. There is no JVD. Carotids are equal there is no bruit. There is no lymphadenopathy. There is no goiter. There is no accessory muscles of respiration use. Trachea central. LUNGS: Clear without any rhonchi rales or wheezing. Bowel sounds are heard in the left front of the chest. HEART: S1-S2 is heard. There is no S3 gallop. There is no S4 gallop. There is systolic murmur left sternal border and apex there is no rub. ABDOMEN: Soft. Nontender there is no hepatospleno megaly. Bowel sounds are well heard. EXTREMITIES: Femorals are diminished. There is no femoral bruits. Leg pulses are diminished. There is no pedal edema. There is no DVT or cellulitis. There is no femoral bruits. There is no cyanosis or clubbing. CMO: The patient is conscious slightly drowsy. With no focal deficits. PSYCHIATRIC: The patient's judgment and insight are intact his affect is normal. Labs- All tests 24 hr 02/08/20 02/08/20 02:45 05:21 Sodium 130.4 L Potassium 4.2 Chloride 98 Carbon Dioxide 29 Anion Gap 3 L BUN 12 Creatinine 0.58 Est GFR ( Amer) > 60 Est GFR (MDRD) Non-Af > 60 Glucose 108 Calcium 9.3 Urine Color STRAW Urine Appearance CLEAR Urine pH 8.0 Ur Specific [place] 1.005 Urine Protein NEGATIVE Urine Glucose (UA) NEGATIVE Urine Ketones NEGATIVE Urine Blood SMALL H Urine Nitrite NEGATIVE Urine Bilirubin NEGATIVE Urine Urobilinogen NEGATIVE Ur Leukocyte Esterase NEGATIVE Urine WBC (Auto) 0 Urine RBC (Auto) 5 Urine Mucus (Auto) RARE Urine Ascorbic Acid NEGATIVE Abdomen/Pelvis CT 02/02/20 00:00 IMPRESSION: 1. No acute intra-abdominal abnormality. 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 3. Colonic diverticulosis without diverticulitis. 4. 2.2 x 2 cm round cystic lesion in the left adnexum (image 56 of series 2). Given the age of the patient correlation with an ultrasound is recommended. 5. Stable left adrenal nodule that measures 2 x 1.5 cm. Chest X-Ray 02/02/20 00:00 IMPRESSION: Stable chest, as above copyright 2010 [employer]- All Rights Reserved Chest/Abdomen CTA 02/02/20 00:00 IMPRESSION: 1. No pulmonary emboli. 2. Other nonemergent findings as above. Chest X-Ray 02/02/20 02:19 IMPRESSION: No acute cardiopulmonary process copyright 2010 [employer]- All Rights Reserved Chest X-Ray 02/03/20 00:00 IMPRESSION: Unchanged radiographic appearance of the chest. Chest X-Ray 02/05/20 00:00 IMPRESSION: Unchanged radiographic appearance of the chest. Chest X-Ray 02/08/20 00:00 IMPRESSION: Unchanged radiographic appearance of the chest. IMPRESSION/RECOMMENDATION: 1. Acute hypoxic respiratory failure. This is most likely secondary to the patient's asthma although not much wheezing. And lung compromise due to herniation of intra-abdominal contents to a diaphragmatic hernia which is large. Would recommend keeping the patient in reverse Trendelenburg position to help gravity minimized the amount of herniation of abdominal contents into the chest. These measures have resulted in resolution of the patient's symptoms and she is very comfortable respiratory failure as resolved. She is back on nasal cannula. 2. SVT: This is most likely secondary to cardiac compromise due to herniation of the intra-abdominal contents into the chest wall. We will start the patient on p.o. metoprolol. The Cardizem drip has been discontinued. 3. Elevated troponin: No evidence of non-ST elevation SC. This is type II SC secondary to supply demand mismatch due to hypoxemia SVT and respiratory failure. 4. Coronary artery disease: No anginal symptoms. 5. 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 6. Hypertension. Seems to be well controlled. Medications reviewed. Medical regimen and management plan discussed with attending provider on the case. Medical decision making is of moderate complexity. 40 minutes spent with patient more than 50% time spent direct patient care. Will follow.
[2020-02-08] MEDS: MAG HYDROX/AL HYDROX/SIMETH SUSP 30 ML UDCUP PO PRN (21:25)
[2020-02-08] MEDS: MONTELUKAST SODIUM 10 MG TABLET PO SCH (21:25)
[2020-02-08] MEDS ORDERED: ASPIRIN 81 MG TABLET, ENT COATED PO SCH (22:00)
[2020-02-09] MEDS: MAG HYDROX/AL HYDROX/SIMETH SUSP 30 ML UDCUP PO PRN (04:06)
[2020-02-09] MEDS: IPRATROPIUM/ALBUTEROL 0.5-2.5 MG/3 ML AMPUL NEB PRN (04:07)
[2020-02-09] MEDS: METOPROLOL TARTRATE 25 MG TABLET PO SCH (05:50)
[2020-02-09] MEDS: PANTOPRAZOLE SODIUM 40 MG TABLET.DR PO SCH (05:51)
[2020-02-09 06:43] LABS: ABSOLUTE EOSINOPHILS # (AUTO) 0.1 10^3/uL (0.0-0.6); ABSOLUTE LYMPHOCYTES (AUTO) 1.5 10^3/uL (0.5-4.7); ABSOLUTE MONOCYTES (AUTO) 0.6 10^3/uL (0.1-1.4); ABSOLUTE NEUT (AUTO) 5.7 10^3/uL (1.7-8.2); BASOPHILS % (AUTO) 0.4 % (0-2); EOSINOPHILS % (AUTO) 1.2 % (0-6); HEMATOCRIT 40.5 % (36.0-47.0); HEMOGLOBIN 13.9 g/dL (12.0-15.5); LYMPHOCYTES % (AUTO) 18.8 % (13-45); MEAN CORPUSCULAR HEMOGLOBIN 29.4 pg (27.0-33.4); MEAN CORPUSCULAR HGB CONC 34.2 g/dL (32.0-36.0); MEAN CORPUSCULAR VOLUME 86 fl (80-97); MONOCYTES % (AUTO) 7.8 % (3-13); PLATELET COUNT 235 10^3/uL (150-450); RED BLOOD COUNT 4.71 10^6/uL (3.72-5.28); RED CELL DISTRIBUTION WIDTH 13.7 % (11.5-14.0); SEGMENTED NEUTROPHILS % (AUTO) 71.8 % (42-78); TOTAL CELLS COUNTED % (AUTO) 100 %; WHITE BLOOD COUNT 7.9 10^3/uL (4.0-10.5)
[2020-02-09 07:04] LABS: BLOOD UREA NITROGEN 14 mg/dL (7-20); CALCIUM 9.3 mg/dL (8.4-10.2); CARBON DIOXIDE 30 mmol/L (22-30); CHLORIDE 97 mmol/L (98-107); GLUCOSE 94 mg/dL (75-110); POTASSIUM 4.3 mmol/L (3.6-5.0)
[2020-02-09 07:13] LABS: ANION GAP 4 (5-19)
[2020-02-09] MEDS: SIMETHICONE 80 MG TAB.CHEW PO SCH ×2 (08:02→13:42)
[2020-02-09] MEDS: IPRATROPIUM/ALBUTEROL 0.5-2.5 MG/3 ML AMPUL NEB SCH ×2 (08:14→12:26)
[2020-02-09] MEDS: DOCUSATE SODIUM 100 MG CAPSULE PO SCH (09:32)
[2020-02-09] MEDS: GUAIFENESIN 600 MG TABLET.SA PO SCH (09:32)
[2020-02-09] MEDS: POLYETHYLENE GLYCOL 3350 POWDER 17 GM/1 PACKET PO SCH (09:32)
[2020-02-09] MEDS: CEFEPIME 1 GM/D5W RTU 1 GM/50 ML RTUPB IV SCH (09:32)
[2020-02-09] MEDS: ENOXAPARIN SODIUM INJ 40 MG/0.4 ML DISP.SYRIN SUBCUT SCH (09:33)
--- NOTE | 2020-02-09 11:25 | PDOC DISCHARGE SUMMARY ---
Impression - Admit/DC Date/PCP Admission Date/Primary Care Provider: 02/02/20 05:42 ROSHAN RUBI PA-C Discharge Date: 02/09/20 - Discharge Diagnosis (1) Shortness of breath Is this a current diagnosis for this admission?: Yes (2) Troponin level elevated Is this a current diagnosis for this admission?: Yes (3) Asthma exacerbation Is this a current diagnosis for this admission?: Yes (4) Coronary artery disease Is this a current diagnosis for this admission?: Yes (5) Gastroesophageal reflux Is this a current diagnosis for this admission?: Yes (6) Hyperlipidemia Is this a current diagnosis for this admission?: Yes (7) Hypertension Is this a current diagnosis for this admission?: Yes (8) Paraesophageal hiatal hernia Is this a current diagnosis for this admission?: Yes (9) Scoliosis (and kyphoscoliosis), idiopathic Is this a current diagnosis for this admission?: Yes (10) Supraventricular tachycardia Is this a current diagnosis for this admission?: Yes (11) Type 2 myocardial infarction due to arrhythmia Is this a current diagnosis for this admission?: Yes - Additional Information Resuscitation Status: Do Not Resuscitate Discharge Diet: Cardiac Discharge Activity: Activity As Tolerated Referrals: EDSON NAVARRO MD [ACTIVE STAFF] - 02/23/20 12:15 pm ROSHAN RUBI PA-C [Primary Care Provider] - 02/15/20 11:15 am (f/u with dr floyd ) Prescriptions: Metoprolol Tartrate [Lopressor 25 mg Tablet] 25 mg PO Q12A #60 tablet Polyethylene Glycol 3350 [Miralax Powder 17 gm/Packet] 17 gm PO DAILY #30 powd.pack Simethicone [Mylicon 80 mg Chewable Tablet] 80 mg PO MEALS #60 tab.chew Pantoprazole Sodium [Protonix [address] Tablet] 40 mg PO BID@0600,1700 #60 tablet. Budesonide/Formoterol Fumarate [Symbicort Hfa 80-4.5 Mcg Inhaler 6.9 gm] 1 puff IH BID #1 inhaler Home Medications: Albuterol Sulfate [Ventolin Hfa 8 gm Mdi (1 Mdi/ER Disp)] 2 puff IH Q4 07/23/19 Aspirin [Adult Low Dose Aspirin EC] 81 mg PO DAILY 07/23/19 Mirabegron [Myrbetriq] 25 mg PO DAILY 07/23/19 Montelukast Sodium [Singulair 10 mg Tablet] 10 mg PO QHS 07/23/19 Guaifenesin [Mucinex Sr 600 mg Tablet.sa] 600 mg PO BID #60 tablet.sa 07/28/19 Simethicone [Gas-X] 125 mg PO DAILYP PRN 02/02/20 Budesonide/Formoterol Fumarate [Symbicort Hfa 80-4.5 Mcg Inhaler 6.9 gm] 1 puff IH BID #1 inhaler 02/09/20 Metoprolol Tartrate [Lopressor 25 mg Tablet] 25 mg PO Q12A #60 tablet 02/09/20 Pantoprazole Sodium [Protonix [address] Tablet] 40 mg PO BID@0600,1700 #60 tablet.dr 02/09/20 Polyethylene Glycol 3350 [Miralax Powder 17 gm/Packet] 17 gm PO DAILY #30 powd.pack 02/09/20 Simethicone [Mylicon 80 mg Chewable Tablet] 80 mg PO MEALS #60 tab.chew 02/09/20 History of Present Illiness History of Present Illness: BHUPINDER Walsh LADUE is a 79 year old female This is 79-year-old female's with a history of the hypertension COPD asthma history of the hiatal hernia and a history of coronary artery disease and multiple other medical problems came to the emergency department with the complaint of shortness of the breathSince last several days getting more worse and patient started probably asthma issues which patient always have issue with that Patient's denied any contact with any COVID person denied any fever no chest pain but patient's complaint was some pain in her esophagus area which patient always have that from usual hiatal hernia Patient is also complaining some abdominal discomfort on and off recently patient have a loose stool then develop a constipations Patient's denied any blood in the stools no black stools Patient denied any headache In the emergency department patient EKG showed some sinus tachycardia and patient's troponin was initially was 0.055 and second 1 is 0.164When I saw the patient in the floor patient's denied any chest pain denied any shortness of the breath Discussed with the Dr. FLOYD cardiology regarding elevated troponin suggest to order the CT angiogram to rule out any PE We will start the patient on a full dose Lovenox aspirin and beta-blockerP resumed non-ST PA until the full cardiac evaluations done Discussed with the Dr. FLOYD he will see the patient's today to further evaluate Patient is want to be a DNR/DNI patient understand very well Patient also have a huge hiatal hernia with the paraesophageal surgery required but patient's have a serious kyphoscoliosis with pulmonary disease underlying coronary disease surgery currently referred to medical management Hospital Course Hospital Course: This is a 79-year-old female's with a significant medical problems came to the emergency department with shortness of the breath and some respiratory failure Patient also found to elevated troponin and cardiology was consulted for further evaluations Patient is initially have a COPD asthma acute exacerbation treat with the IV steroids and nebulizer treatments Patient's initial concern was non-ST PA but cardiology is noticed that is all coming from the supraventricular tachycardia and probably a paraesophageal hernia related hypoxia causing the elevated cardiac enzyme Patient's responds very well with the treatments patient's elevate the bed which helps the patient's paraesophageal hernia Patient also treated with the IV antibiotics steroids and nebulizer treatments which responds very well with the asthma COPD Patient's wean off from the oxygen's Patient still refused further cardiac cath Patient at this point is remained stable walk with the physical therapy back to the baseline's No significant scoliosis with the paraesophageal hernia patient is very high risk for the surgical procedures at this point discussed with the cardiology follow-up outpatient for further evaluations and patients probably need to see the CT surgeon will refer as outpatient Discussed with the patient's family regarding the patient's current conditions patients prefer to go home's with the home health and physical therapy Physical Exam Vital Signs: Temp Pulse Resp BP Pulse Ox 97.4 F 67 22 H 114/73 98 02/09/20 08:26 02/09/20 08:26 02/09/20 08:26 02/09/20 08:26 02/09/20 08:26 Intake & Output 02/08/20 02/09/20 02/10/20 06:59 06:59 06:59 Intake Total 1326 1866 50 Output Total 1700 1335 Balance -374 531 50 Weight 61.1 kg 61.4 kg General appearance: PRESENT: no acute distress, well-developed, well-nourished Head exam: PRESENT: atraumatic, normocephalic Eye exam: PRESENT: conjunctiva pink, EOMI, PERRLA. ABSENT: scleral icterus Ear exam: PRESENT: normal external ear exam Mouth exam: PRESENT: moist, tongue midline Neck exam: ABSENT: carotid bruit, JVD, lymphadenopathy, thyromegaly Respiratory exam: PRESENT: clear to auscultation candelario. ABSENT: rales, rhonchi, wheezes Cardiovascular exam: PRESENT: RRR. ABSENT: diastolic murmur, rubs, systolic murmur Pulses: PRESENT: normal dorsalis pedis pul Vascular exam: PRESENT: normal capillary refill GI/Abdominal exam: PRESENT: normal bowel sounds, soft. ABSENT: distended, guarding, mass, organolmegaly, rebound, tenderness Rectal exam: PRESENT: deferred Extremities exam: PRESENT: full ROM. ABSENT: calf tenderness, clubbing, pedal edema Neurological exam: PRESENT: alert, awake, oriented to person, oriented to place, oriented to time, oriented to situation, CN II-XII grossly intact. ABSENT: motor sensory deficit Psychiatric exam: PRESENT: appropriate affect, normal mood. ABSENT: homicidal ideation, suicidal ideation Skin exam: PRESENT: dry, intact, warm. ABSENT: cyanosis, rash Results Laboratory Results: WBC 7.9 10^3/uL (4.0-10.5) 02/09/20 06:15 RBC 4.71 10^6/uL (3.72-5.28) 02/09/20 06:15 Hgb 13.9 g/dL (12.0-15.5) 02/09/20 06:15 Hct 40.5 % (36.0-47.0) 02/09/20 06:15 MCV 86 fl (80-97) 02/09/20 06:15 MCH 29.4 pg (27.0-33.4) 02/09/20 06:15 MCHC 34.2 g/dL (32.0-36.0) 02/09/20 06:15 RDW 13.7 % (11.5-14.0) 02/09/20 06:15 Plt Count 235 10^3/uL (150-450) 02/09/20 06:15 Lymph % (Auto) 18.8 % (13-45) 02/09/20 06:15 [place] % (Auto) 7.8 % (3-13) 02/09/20 06:15 Eos % (Auto) 1.2 % (0-6) 02/09/20 06:15 Baso % (Auto) 0.4 % (0-2) 02/09/20 06:15 Absolute Neuts (auto) 5.7 10^3/uL (1.7-8.2) 02/09/20 06:15 Absolute Lymphs (auto) 1.5 10^3/uL (0.5-4.7) 02/09/20 06:15 Absolute Monos (auto) 0.6 10^3/uL (0.1-1.4) 02/09/20 06:15 Absolute Eos (auto) 0.1 10^3/uL (0.0-0.6) 02/09/20 06:15 Absolute Basos (auto) 0.0 10^3/uL (0.0-0.2) 02/09/20 06:15 Total Counted 100 02/04/20 06:11 Seg Neutrophils % 71.8 % (42-78) 02/09/20 06:15 Seg Neuts % (Manual) 91 % (42-78) H 02/04/20 06:11 Lymphocytes % (Manual) 2 % (13-45) L 02/04/20 06:11 Monocytes % (Manual) 7 % (3-13) 02/04/20 06:11 Eosinophils % (Manual) 0 % (0-6) 02/04/20 06:11 Basophils % (Manual) 0 % (0-2) 02/04/20 06:11 Abs Neuts (Manual) 18.0 10^3/uL (1.7-8.2) H 02/04/20 06:11 Abs Lymphs (Manual) 0.4 10^3/uL (0.5-4.7) L 02/04/20 06:11 Abs Monocytes (Manual) 1.4 10^3/uL (0.1-1.4) 02/04/20 06:11 Absolute Eos (Manual) 0.0 10^3/uL (0.0-0.6) 02/04/20 06:11 Abs Basophils (Manual) 0.0 10^3/uL (0.0-0.2) 02/04/20 06:11 Platelet Comment ADEQUATE 02/04/20 06:11 Poikilocytosis SLIGHT 02/04/20 06:11 Anisocytosis SLIGHT 02/04/20 06:11 Tear Drop Cells SLIGHT 02/04/20 06:11 Carbonic Acid 1.20 mmol/L (1.05-1.35) 02/03/20 08:57 HCO3/H2CO3 Ratio 21:1 02/03/20 08:57 ABG pH 7.42 (7.35-7.45) 02/03/20 08:57 ABG pCO2 39.9 mmHg (35-45) 02/03/20 08:57 ABG pO2 107.6 mmHg (80-100) H 02/03/20 08:57 ABG HCO3 25.4 mmol/L (20-24) H 02/03/20 08:57 ABG Total CO2 26.6 mmol/L (21-25) H 02/03/20 08:57 ABG O2 Saturation 98.0 % (94-98) 02/03/20 08:57 ABG Base Excess 0.9 mmol/L 02/03/20 08:57 FiO2 100% 02/03/20 08:57 Sodium 131.2 mmol/L (137-145) L 02/09/20 06:15 Potassium 4.3 mmol/L (3.6-5.0) 02/09/20 06:15 Chloride 97 mmol/L (98-107) L 02/09/20 06:15 Carbon Dioxide 30 mmol/L (22-30) 02/09/20 06:15 Anion Gap 4 (5-19) L 02/09/20 06:15 BUN 14 mg/dL (7-20) 02/09/20 06:15 Creatinine 0.58 mg/dL (0.52-1.25) 02/09/20 06:15 Est GFR ( Amer) > 60 (>60) 02/09/20 06:15 Est GFR (MDRD) Non-Af > 60 (>60) 02/09/20 06:15 Glucose 94 mg/dL (75-110) 02/09/20 06:15 Calcium 9.3 mg/dL (8.4-10.2) 02/09/20 06:15 Magnesium 2.4 mg/dL (1.6-2.3) H 02/05/20 05:50 Total Bilirubin 0.5 mg/dL (0.2-1.3) 02/02/20 03:23 Direct Bilirubin 0.0 mg/dL (0.0-0.4) 02/02/20 03:23 Neonat Total Bilirubin Not Reportable 02/02/20 03:23 Neonat Direct Bilirubin Not Reportable 02/02/20 03:23 Neonat Indirect Bili Not Reportable 02/02/20 03:23 AST 37 U/L (14-36) H 02/02/20 03:23 ALT 16 U/L (<35) 02/02/20 03:23 Alkaline Phosphatase 59 U/L (38-126) 02/02/20 03:23 Creatine Kinase 81 U/L (30-135) 02/02/20 21:36 CK-MB (CK-2) 4.82 ng/mL (<4.55) H 02/02/20 21:36 Troponin I 0.763 ng/mL 02/02/20 21:36 NT-Pro-B Natriuret Pep 506 pg/mL (<450) H 02/02/20 03:23 Total Protein 6.4 g/dL (6.3-8.2) 02/02/20 03:23 Albumin Cancelled 02/03/20 05:56 Urine Color STRAW 02/08/20 02:45 Urine Appearance CLEAR 02/08/20 02:45 Urine pH 8.0 (5.0-9.0) 02/08/20 02:45 Ur Specific [place] 1.005 02/08/20 02:45 Urine Protein NEGATIVE mg/dL (NEGATIVE) 02/08/20 02:45 Urine Glucose (UA) NEGATIVE mg/dL (NEGATIVE) 02/08/20 02:45 Urine Ketones NEGATIVE mg/dL (NEGATIVE) 02/08/20 02:45 Urine Blood SMALL (NEGATIVE) H 02/08/20 02:45 Urine Nitrite NEGATIVE (NEGATIVE) 02/08/20 02:45 Urine Bilirubin NEGATIVE (NEGATIVE) 02/08/20 02:45 Urine Urobilinogen NEGATIVE mg/dL (<2.0) 02/08/20 02:45 Ur Leukocyte Esterase NEGATIVE (NEGATIVE) 02/08/20 02:45 Urine WBC (Auto) 0 /HPF 02/08/20 02:45 Urine RBC (Auto) 5 /HPF 02/08/20 02:45 U Hyaline Cast (Auto) 11 /LPF 02/02/20 02:55 Urine Bacteria (Auto) TRACE /HPF 02/03/20 14:35 Squamous Epi Cells Auto 6 /HPF 02/02/20 02:55 Urine Mucus (Auto) RARE /LPF 02/08/20 02:45 Urine Ascorbic Acid NEGATIVE (NEGATIVE) 02/08/20 02:45 02/02/20 02/02/20 02/02/20 03:23 06:31 08:45 CK-MB (CK-2) 2.71 Troponin I 0.055 0.164 0.295 NT-Pro-B Natriuret Pep 506 H 02/02/20 02/02/20 15:29 21:36 CK-MB (CK-2) 4.57 H 4.82 H Troponin I 0.785 0.763 NT-Pro-B Natriuret Pep Impressions: Abdomen/Pelvis CT 02/02/20 00:00 IMPRESSION: 1. No acute intra-abdominal abnormality. 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 3. Colonic diverticulosis without diverticulitis. 4. 2.2 x 2 cm round cystic lesion in the left adnexum (image 56 of series 2). Given the age of the patient correlation with an ultrasound is recommended. 5. Stable left adrenal nodule that measures 2 x 1.5 cm. Chest X-Ray 02/02/20 00:00 IMPRESSION: Stable chest, as above copyright 2010 [employer]- All Rights Reserved Chest/Abdomen CTA 02/02/20 00:00 IMPRESSION: 1. No pulmonary emboli. 2. Other nonemergent findings as above. Chest X-Ray 02/02/20 02:19 IMPRESSION: No acute cardiopulmonary process copyright 2010 [employer]- All Rights Reserved Chest X-Ray 02/03/20 00:00 IMPRESSION: Unchanged radiographic appearance of the chest. Chest X-Ray 02/05/20 00:00 IMPRESSION: Unchanged radiographic appearance of the chest. Chest X-Ray 02/08/20 00:00 IMPRESSION: Unchanged radiographic appearance of the chest. Plan Time Spent: Greater than 30 Minutes - Follow-up cardiology as outpatients follow in office 1 week Stroke Is this a Stroke Patient?: No Acute Heart Failure - Is this a Heart Failure Patient?: No
[2020-02-09 12:29] VITALS: BP 112/55
== END 2020-02-09 15:23 | disposition home health service (06) | DRG 281 ==
LOC: ER 02:02 → EH 05:42 → 3S 08:22
PROVIDERS: ADMIT Family Medicine; ATTEND Family Medicine
DX: I47.1 Supraventricular tachycardia (principal); I21.A1 Myocardial infarction type 2; J45.21 Mild intermittent asthma with (acute) exacerbation; I25.10 Atherosclerotic heart disease of native coronary artery without angina pectoris; K21.9 Gastro-esophageal reflux disease without esophagitis; E78.5 Hyperlipidemia, unspecified; I10 Essential (primary) hypertension; K44.9 Diaphragmatic hernia without obstruction or gangrene; M41.20 Other idiopathic scoliosis, site unspecified; J44.9 Chronic obstructive pulmonary disease, unspecified; Z66 Do not resuscitate; D64.9 Anemia, unspecified; E78.00 Pure hypercholesterolemia, unspecified; I25.2 Old myocardial infarction; Z79.899 Other long term (current) drug therapy; Z79.82 Long term (current) use of aspirin; Z88.6 Allergy status to analgesic agent; Z88.3 Allergy status to other anti-infective agents; Z91.040 Latex allergy status; Z88.0 Allergy status to penicillin; Z91.018 Allergy to other foods; Z87.891 Personal history of nicotine dependence
CPT/HCPCS: 36415; 36600; 71045; 71275; 74176; 80048; 80053; 81001; 82550; 82553; 82803; 83735; 83880; 84484; 85025; 87086; 93005; 93010; 93306; 94640; 99285; J0610; C9113; J0692; J0696; J1160; J1650; J2060; J2920; J3490; J7620

== ENCOUNTER 2020-03-03 06:44 | Emergency (ER) | payer MEDICARE ==
[2020-03-03 07:27] LABS: ABSOLUTE LYMPHOCYTES (AUTO) 1.4 10^3/uL (0.5-4.7); ABSOLUTE MONOCYTES (AUTO) 0.5 10^3/uL (0.1-1.4); ABSOLUTE NEUT (AUTO) 3.6 10^3/uL (1.7-8.2); BASOPHILS % (AUTO) 0.5 % (0-2); EOSINOPHILS % (AUTO) 0.4 % (0-6); HEMATOCRIT 36.3 % (36.0-47.0); HEMOGLOBIN 12.1 g/dL (12.0-15.5); LYMPHOCYTES % (AUTO) 24.5 % (13-45); MEAN CORPUSCULAR HEMOGLOBIN 28.8 pg (27.0-33.4); MEAN CORPUSCULAR HGB CONC 33.3 g/dL (32.0-36.0); MEAN CORPUSCULAR VOLUME 87 fl (80-97); MONOCYTES % (AUTO) 8.5 % (3-13); PLATELET COUNT 271 10^3/uL (150-450); SEGMENTED NEUTROPHILS % (AUTO) 66.1 % (42-78); TOTAL CELLS COUNTED % (AUTO) 100 %; WHITE BLOOD COUNT 5.5 10^3/uL (4.0-10.5)
[2020-03-03 07:35] LABS: ALBUMIN 3.5 g/dL (3.5-5.0); ALKALINE PHOSPHATASE 85 U/L (38-126); ANION GAP 5 (5-19); ASPARTATE AMINO TRANSFERASE 37 U/L (14-36); BILIRUBIN,DIRECT 0.1 mg/dL (0.0-0.4); BILIRUBIN,TOTAL 0.6 mg/dL (0.2-1.3); BLOOD UREA NITROGEN 7 mg/dL (7-20); CALCIUM 9.1 mg/dL (8.4-10.2); CARBON DIOXIDE 24 mmol/L (22-30); CHLORIDE 104 mmol/L (98-107); CREATINE KINASE 30 U/L (30-135); GLUCOSE 111 mg/dL (75-110); POTASSIUM 3.9 mmol/L (3.6-5.0)
--- NOTE | 2020-03-03 07:54 | ER Document Report ---
Entered by SYLVAIN MCNEIL SCRIBE 03/03/20 0714 Acting as scribe for:BUZZ CANTU MD ED General - General Chief Complaint: Chest Pressure Stated Complaint: CHEST PRESSURE Time Seen by Provider: 03/03/20 07:02 Primary Care Provider: ROSHAN RUBI PA-C [PHYSICIAN JOB SITE SUPERVISOR] - Follow up as needed Mode of Arrival: Medic Information source: Patient, Emergency Med Personnel Notes: This 79-year-old female patient presents to the emergency department this morning with complaints of shortness of breath with associated chest pain. She reports the breathing got bad about 11 PM last night. She states he called EMS because of the chest pain. EMS gave 1 sublingual nitroglycerin and started her on a nitroglycerin drip. At this time she is on BiPAP. She states that her breathing is better and her chest pain is gone. TRAVEL OUTSIDE OF THE [place] IN LAST 30 DAYS: No - Related Data Allergies/Adverse Reactions: latex [Latex] Allergy (Intermediate, Verified 02/02/20 02:11) ITCHING levofloxacin [From Levaquin] Allergy (Unknown, Verified 02/02/20 02:11) saccharin Allergy (Verified 02/02/20 02:11) Penicillins Adverse Reaction (Mild, Verified 02/02/20 02:11) Yeast infections ibuprofen [From Motrin] Adverse Reaction (Verified 02/02/20 02:11) Home Medications: Losartan potassium. Atorvastatin. Singulair. Lexapro. Loratidine. Celexa. Citalopram Past Medical History - General Information source: Patient - Social History Smoking Status: Never Smoker Cigarette use (# per day): No Chew tobacco use (# tins/day): No Smoking Education Provided: No Frequency of alcohol use: None Family History: Reviewed & Not Pertinent, DM, Hypertension, Malignancy - Past Medical History Cardiac Medical History: Reports: Hx Coronary Artery Disease, Hx Heart Attack - nonstemi 2018, Hx Hypercholesterolemia, Hx Hypertension Pulmonary Medical History: Reports: Hx Asthma, Hx Bronchitis, Hx Pneumonia Comment Only: Hx COPD - States she has not been diagnosed with COPD Neurological Medical History: Denies: Hx Cerebrovascular Accident, Hx Migraine, Hx Seizures Renal/ Medical History: Denies: Hx Peritoneal Dialysis GI Medical History: Reports: Hx Gastroesophageal Reflux Disease, Hx Hiatal Hernia. Denies: Hx Hepatitis, Hx Ulcer Musculoskeletal Medical History: Reports Hx Arthritis Psychiatric Medical History: Reports: Hx Depression - on occassion Infectious Medical History: Denies: Hx Hepatitis Past Surgical History: Reports: Hx Abdominal Surgery - ODELL, Hx Appendectomy, Hx Orthopedic Surgery, Hx Tonsillectomy. Denies: Hx Hysterectomy, Hx Mastectomy, Hx Open Heart Surgery, Hx Pacemaker - Immunizations Hx Diphtheria, Pertussis, Tetanus Vaccination: No Hx Pneumococcal Vaccination: 07/10/15 Review of Systems - Review of Systems Constitutional: No symptoms reported EENT: No symptoms reported Cardiovascular: See HPI, Chest pain - last night, now resolved Respiratory: See HPI, Short of breath Gastrointestinal: No symptoms reported Genitourinary: No symptoms reported Female Genitourinary: No symptoms reported Musculoskeletal: No symptoms reported Skin: No symptoms reported Hematologic/Lymphatic: No symptoms reported Neurological/Psychological: No symptoms reported -: Yes All other systems reviewed and negative Physical Exam - Vital signs Vitals: Temp 97.8 F 03/03/20 06:44 Course - Re-evaluation Re-evalutation: 03/03/20 10:07 Dr. Chatman called about the patient. He states she is supposed to see him in the office on Saturday for stress test. He states she has a large hiatal hernia that causes her symptoms. I let him know that her chest x-ray today suggests that her shortness of breath is some mild congestive heart failure. He recommends that she be discharged if she can be diuresed and her breathing improves. 03/03/20 11:26 Reviewing past records shows that the patient had a echo done on 02/03/2020 showing a EF of 45%. An echo done in 2018 which been read showing an EF of 60%. She has had a BNP over thousand before, but never in the range it is today at 7,400. 03/03/20 13:04 The patient was initially transitioned to a nasal cannula which she tolerated well. She is now been off oxygen completely for quite some time and her oxygen saturation is running 95% at rest. 03/03/20 13:43 I discussed the case with Dr. Bai. He wants to see her in the office tomorrow morning to review her medications as she was once on Lasix in the past and he may restart it. Earlier Dr. Chatman had called me back and wanted the patient to be seen in his office on 03/08/2020 rather than Saturday. - Vital Signs Vital signs: Temp Pulse Resp BP Pulse Ox 97.8 F 68 24 H 155/88 H 94 03/03/20 14:05 03/03/20 14:05 03/03/20 14:05 03/03/20 14:05 03/03/20 14:05 - Laboratory Result Diagrams: 03/03/20 06:59 03/03/20 06:59 Laboratory results interpreted by me: 03/03/20 03/03/20 06:59 06:59 Sodium 133.2 L Glucose 111 H AST 37 H NT-Pro-B Natriuret Pep 7420 H Total Protein 6.0 L - Diagnostic Test Radiology reviewed: Image reviewed, Reports reviewed - Cardiomegaly with mild pulmonary edema. - EKG Interpretation by Me EKG shows normal: Sinus rhythm, [place], Intervals, QRS Complexes. abnormal: ST-T Waves - Lateral T wave abnormalities Rate: Normal - 61 Rhythm: NSR When compared to previous EKG there are: No significant change Critical Care Note - Critical Care Note Total time excluding time spent on procedures (mins): 30 Comments: At least 30 minutes was spent evaluating the patient, reviewing old records and comparing to current lab work. [address] Gibson, 1 d iscussion consultation with Dr. Bai. Several re-evaluations during the patient's course in the emergency room. Discharge - Discharge Clinical Impression: Congestive heart failure (CHF) Qualifiers: Heart failure type: unspecified Heart failure chronicity: acute on chronic Qualified Code(s): I50.9 - Heart failure, unspecified Dyspnea Qualifiers: Dyspnea type: unspecified Qualified Code(s): R06.00 - Dyspnea, unspecified Chest pain Qualifiers: Chest pain type: unspecified Qualified Code(s): R07.9 - Chest pain, unspecified Condition: Stable Disposition: HOME, SELF-CARE Additional Instructions: Your evaluation today shows that your shortness of breath was most likely due to congestive heart failure. You are given a dose of Lasix, and have urinated quite a lot and your breathing has improved. Dr. Bai wants to see you in the office tomorrow morning for recheck and to decide about starting you back on Lasix. Dr. Trjuillo wants you to change your appointment time and come in on Saturday rather than Saturday. You should call Dr. Dr. Trujillo's office today to confirm your appointment time next Saturday. Be sure you do go to see Dr. Bai in his office tomorrow morning. RETURN TO THE EMERGENCY ROOM IF ANY NEW OR WORSENING SYMPTOMS. Referrals: ROSHAN RUBI PA-C [PHYSICIAN JOB SITE SUPERVISOR] - Follow up as needed I personally performed the services described in the documentation, reviewed and edited the documentation which was dictated to the scribe in my presence, and it accurately records my words and actions.
--- NOTE | 2020-03-03 08:05 | RADIOLOGY REPORT (SQ) ---
EXAM DESCRIPTION: CHEST SINGLE VIEW IMAGES COMPLETED DATE/TIME: 03/03/2020 7:45 am REASON FOR STUDY: SOB COMPARISON: 02/08/2020 EXAM PARAMETERS: NUMBER OF VIEWS: One view. TECHNIQUE: Single frontal radiographic view of the chest acquired. RADIATION DOSE: NA LIMITATIONS: None. FINDINGS: LUNGS AND PLEURA: Mildly increased interstitial markings. No focal consolidation. No ple ural effusion. No pneumothorax. MEDIASTINUM AND HILAR STRUCTURES: Stable. HEART AND VASCULAR STRUCTURES: Cardiomegaly with central vascular congestion. BONES: No acute findings. HARDWARE: None in the chest. OTHER: No other significant finding. IMPRESSION: Constellation of findings suggest early CHF exacerbation. Infectious etiology is not ex cluded. TECHNICAL DOCUMENTATION: JOB ID: [id number] 2010 [employer]- All Rights Reserved Reading location - IP/workstation name: [email or web address]
[2020-03-03] MEDS ORDERED: FUROSEMIDE INJ/PF 20 MG/2 ML SDV IV ONE (09:26)
--- NOTE | 2020-03-03 10:01 | EKG REPORT ---
SEVERITY:- ABNORMAL ECG - SINUS RHYTHM ABNORMAL T, CONSIDER ISCHEMIA, LATERAL LEADS : Confirmed by: Simran Pulliam 03-Mar-2020 10:00:53
[2020-03-03 10:47] LABS: APPEARANCE,URINE CLEAR; BILIRUBIN,URINE NEGATIVE (NEGATIVE); COLOR,URINE COLORLESS; GLUCOSE, URINE NEGATIVE (NEGATIVE); KETONES,URINE NEGATIVE (NEGATIVE); LEUKOCYTE ESTERASE,URINE NEGATIVE (NEGATIVE); NITRITE,URINE NEGATIVE (NEGATIVE); PROTEIN,URINE NEGATIVE (NEGATIVE); URINE SPECIFIC GRAVITY 1.003; UROBILINOGEN,URINE NEGATIVE mg/dL (<2.0)
[2020-03-03 14:06] VITALS: BP 155/88
--- NOTE | 2020-03-04 19:26 | EKG REPORT ---
SEVERITY:- ABNORMAL ECG - SINUS RHYTHM ABNORMAL T, CONSIDER ISCHEMIA, LATERAL LEADS : Confirmed by: Simran Pulliam 04-Mar-2020 19:25:45
== END 2020-03-03 14:05 | disposition home or self-care (01) ==
LOC: ER 06:44
DX: I11.0 Hypertensive heart disease with heart failure (principal); I50.9 Heart failure, unspecified; K44.9 Diaphragmatic hernia without obstruction or gangrene; R07.89 Other chest pain; J45.909 Unspecified asthma, uncomplicated; R06.02 Shortness of breath; F32.9 Major depressive disorder, single episode, unspecified; I25.10 Atherosclerotic heart disease of native coronary artery without angina pectoris; I25.2 Old myocardial infarction; E78.00 Pure hypercholesterolemia, unspecified; Z79.899 Other long term (current) drug therapy; Z87.01 Personal history of pneumonia (recurrent); Z91.040 Latex allergy status; Z88.1 Allergy status to other antibiotic agents; Z91.018 Allergy to other foods
CPT/HCPCS: 93005; 99291; 96374; 36415; 82550; 85025; 80053; 81001; 84484; 83880; 71045; 93010; J1940

== ENCOUNTER 2020-03-03 17:23 | Emergency (ER) | payer MEDICARE ==
--- NOTE | 2020-03-03 17:53 | ER Document Report ---
ED Medical Screen (RME) - General Chief Complaint: Shortness Of Breath Stated Complaint: SHORTNESS OF BREATH,EPIGASTRIC PAIN Time Seen by Provider: 03/03/20 17:50 Primary Care Provider: RUBI AGUIAR MD [Primary Care Provider] - Follow up as needed Notes: This is a 79-year-old female presented to the emergency room today stating that she is having shortness of breath and some discomfort in her chest. She was seen here this morning with an exacerbation of CHF went home went to lay down and started having even more shortness of breath and returned. TRAVEL OUTSIDE OF THE [place] IN LAST 30 DAYS: No - Related Data Allergies/Adverse Reactions: latex [Latex] Allergy (Intermediate, Verified 02/02/20 02:11) ITCHING levofloxacin [From Levaquin] Allergy (Unknown, Verified 02/02/20 02:11) saccharin Allergy (Verified 02/02/20 02:11) Penicillins Adverse Reaction (Mild, Verified 02/02/20 02:11) Yeast infections ibuprofen [From Motrin] Adverse Reaction (Verified 02/02/20 02:11) Home Medications: losartan, atorvastatin, singulair, ventolin, Past Medical History - Social History Chew tobacco use (# tins/day): No Frequency of alcohol use: Occasional Drug Abuse: None - Past Medical History Cardiac Medical History: Reports: Hx Coronary Artery Disease, Hx Heart Attack - nonstemi 2018, Hx Hypercholesterolemia, Hx Hypertension Denies: Hx Congestive Heart Failure, Hx Pulmonary Embolism Pulmonary Medical History: Reports: Hx Asthma, Hx Bronchitis, Hx Pneumonia Comment Only: Hx COPD - States she has not been diagnosed with COPD Neurological Medical History: Denies: Hx Cerebrovascular Accident, Hx Migraine, Hx Seizures Renal/ Medical History: Denies: Hx Peritoneal Dialysis GI Medical History: Reports: Hx Gastroesophageal Reflux Disease, Hx Hiatal Hernia. Denies: Hx Hepatitis, Hx Ulcer Musculoskeltal Medical History: Reports Hx Arthritis Psychiatric Medical History: Reports: Hx Depression - on occassion Infectious Medical History: Denies: Hx Hepatitis Past Surgical History: Reports: Hx Abdominal Surgery - ODELL, Hx Appendectomy, Hx Orthopedic Surgery, Hx Tonsillectomy. Denies: Hx Hysterectomy, Hx Mastectomy, Hx Open Heart Surgery, Hx Pacemaker - Immunizations Hx Diphtheria, Pertussis, Tetanus Vaccination: No Physical Exam - Vital signs Vitals: Temp Pulse Resp BP Pulse Ox 98.2 F 68 18 148/86 H 95 03/03/20 17:36 03/03/20 17:36 03/03/20 17:36 03/03/20 17:36 03/03/20 17:36 Course - Vital Signs Vital signs: Temp Pulse Resp BP Pulse Ox 98.2 F 68 18 148/86 H 95 03/03/20 17:45 03/03/20 17:36 03/03/20 17:36 03/03/20 17:36 03/03/20 17:36 Doctor's Discharge - Discharge Referrals: RUBI AGUIAR MD [Primary Care Provider] - Follow up as needed
--- NOTE | 2020-03-03 18:23 | RADIOLOGY REPORT (SQ) ---
EXAM DESCRIPTION: CHEST SINGLE VIEW IMAGES COMPLETED DATE/TIME: 03/03/2020 5:05 pm REASON FOR STUDY: pain sp fall COMPARISON: Chest radiograph, 03/03/2020 at 0749 hours. EXAM PARAMETERS: NUMBER OF VIEWS: One view. TECHNIQUE: Single frontal radiographic view of the chest acquired. RADIATION DOSE: NA LIMITATIONS: None. FINDINGS: LUNGS AND PLEURA: There is improving aeration at the lung bases since previous examination . Lungs are hyperinflated. Patchy residual atelectasis at the lung bases. No pneumothorax. MEDIASTINUM AND HILAR STRUCTURES: No masses. Contour normal. HEART AND VASCULAR STRUCTURES: Moderate cardiomegaly. Mild pulmonary edema. BONES: No acute findings. HARDWARE: None in the chest. OTHER: No other significant finding. IMPRESSION: Improved aeration since previous examination. Patchy bibasilar atelectasis remains. Mi ld pulmonary edema. Lungs are hyperinflated which can be seen with obstructive lung disease. TECHNICAL DOCUMENTATION: JOB ID: [id number] 2010 [employer]- All Rights Reserved Reading location - IP/workstation name: [id number]
[2020-03-03 18:44] LABS: ABSOLUTE LYMPHOCYTES (AUTO) 1.6 10^3/uL (0.5-4.7); ABSOLUTE MONOCYTES (AUTO) 0.7 10^3/uL (0.1-1.4); ABSOLUTE NEUT (AUTO) 3.8 10^3/uL (1.7-8.2); BASOPHILS % (AUTO) 0.7 % (0-2); EOSINOPHILS % (AUTO) 0.3 % (0-6); HEMATOCRIT 38.1 % (36.0-47.0); HEMOGLOBIN 13.1 g/dL (12.0-15.5); LYMPHOCYTES % (AUTO) 26.5 % (13-45); MEAN CORPUSCULAR HEMOGLOBIN 29.4 pg (27.0-33.4); MEAN CORPUSCULAR HGB CONC 34.3 g/dL (32.0-36.0); MEAN CORPUSCULAR VOLUME 86 fl (80-97); PLATELET COUNT 275 10^3/uL (150-450); RED BLOOD COUNT 4.46 10^6/uL (3.72-5.28); RED CELL DISTRIBUTION WIDTH 14.1 % (11.5-14.0); SEGMENTED NEUTROPHILS % (AUTO) 61.5 % (42-78); TOTAL CELLS COUNTED % (AUTO) 100 %; WHITE BLOOD COUNT 6.1 10^3/uL (4.0-10.5)
[2020-03-03 18:53] LABS: APPEARANCE,URINE CLEAR; BILIRUBIN,URINE NEGATIVE (NEGATIVE); COLOR,URINE YELLOW; GLUCOSE, URINE NEGATIVE (NEGATIVE); KETONES,URINE NEGATIVE (NEGATIVE); LEUKOCYTE ESTERASE,URINE SMALL (NEGATIVE); NITRITE,URINE NEGATIVE (NEGATIVE); PROTEIN,URINE 30 mg/dL (NEGATIVE); URINE SPECIFIC GRAVITY 1.015; UROBILINOGEN,URINE NEGATIVE mg/dL (<2.0)
[2020-03-03 19:00] LABS: ALBUMIN 3.9 g/dL (3.5-5.0); ALKALINE PHOSPHATASE 92 U/L (38-126); ANION GAP 6 (5-19); ASPARTATE AMINO TRANSFERASE 31 U/L (14-36); BILIRUBIN,DIRECT 0.1 mg/dL (0.0-0.4); BILIRUBIN,TOTAL 0.8 mg/dL (0.2-1.3); BLOOD UREA NITROGEN 8 mg/dL (7-20); CALCIUM 9.7 mg/dL (8.4-10.2); CARBON DIOXIDE 27 mmol/L (22-30); CHLORIDE 101 mmol/L (98-107); GLUCOSE 105 mg/dL (75-110); POTASSIUM 3.8 mmol/L (3.6-5.0); TOTAL PROTEIN 6.5 g/dL (6.3-8.2)
[2020-03-04] MEDS ORDERED: GUAIFENESIN 600 MG TABLET.SA PO ONE (00:18)
[2020-03-04] MEDS ORDERED: LEVALBUTEROL HCL NEB 1.25 MG/3 ML AMPUL NEB ONE (00:19)
[2020-03-04] MEDS ORDERED: PREDNISONE 20 MG TABLET PO ONE (00:19)
--- NOTE | 2020-03-04 00:29 | ER Document Report ---
Entered by CHIP WILD SCRIBE 03/04/20 0019 Acting as scribe for:BRIE HEATON IV, MD ED General - General Chief Complaint: Shortness Of Breath Stated Complaint: SHORTNESS OF BREATH,EPIGASTRIC PAIN Time Seen by Provider: 03/03/20 17:50 Primary Care Provider: RUBI BAI MD [Primary Care Provider] - Follow up as needed Mode of Arrival: Wheelchair Information source: Patient Notes: This 79 year old female patient with a history of asthma, hiatal hernia, and CHF presents to the ED today with complaints of worsening shortness of breath that occurred prior to arrival. Patient states that she was seen here yesterday afternoon for CHF exacerbation and was discharged with instructions to follow up with Dr. Bai this morning and Dr. Trujillo on 03/08/2020. Patient states that she felt better upon discharge yesterday and that she went home for a few hours and took a nap. She states that she felt "congestion in my lungs again" and worsening shortness of breath after her nap, so she decided to come to the ED for evaluation. She also reports epigastric pain, but denies chest pain. She notes that breathing treatments and Guaifenesin usually loosens up the mucus. TRAVEL OUTSIDE OF THE [place] IN LAST 30 DAYS: No - Related Data Allergies/Adverse Reactions: latex [Latex] Allergy (Intermediate, Verified 02/02/20 02:11) ITCHING levofloxacin [From Levaquin] Allergy (Unknown, Verified 02/02/20 02:11) saccharin Allergy (Verified 02/02/20 02:11) Penicillins Adverse Reaction (Mild, Verified 02/02/20 02:11) Yeast infections ibuprofen [From Motrin] Adverse Reaction (Verified 02/02/20 02:11) Home Medications: losartan, atorvastatin, singulair, ventolin, Past Medical History - General Information source: Patient, [facility] Records - Social History Smoking Status: Never Smoker Cigarette use (# per day): No Chew tobacco use (# tins/day): No Smoking Education Provided: No Frequency of alcohol use: Occasional Drug Abuse: None Family History: Reviewed & Not Pertinent, DM, Hypertension, Malignancy Patient has suicidal ideation: No Patient has homicidal ideation: No - Past Medical History Cardiac Medical History: Reports: Hx Congestive Heart Failure, Hx Coronary Artery Disease, Hx Heart Attack - nonstemi 2018, Hx Hypercholesterolemia, Hx Hypertension Pulmonary Medical History: Reports: Hx Asthma, Hx Bronchitis, Hx Pneumonia Comment Only: Hx COPD - States she has not been diagnosed with COPD GI Medical History: Reports: Hx Gastroesophageal Reflux Disease, Hx Hiatal Hernia Musculoskeletal Medical History: Reports Hx Arthritis Psychiatric Medical History: Reports: Hx Depression - on occassion Past Surgical History: Reports: Hx Abdominal Surgery - ODELL, Hx Appendectomy, Hx Orthopedic Surgery, Hx Tonsillectomy - Immunizations Hx Diphtheria, Pertussis, Tetanus Vaccination: No Hx Pneumococcal Vaccination: 07/10/15 Review of Systems - Review of Systems Constitutional: No symptoms reported EENT: No symptoms reported Cardiovascular: See HPI. denies: Chest pain Respiratory: See HPI, Short of breath, Other - Congestion Gastrointestinal: See HPI, Abdominal pain Genitourinary: No symptoms reported Female Genitourinary: No symptoms reported Musculoskeletal: No symptoms reported Skin: No symptoms reported Hematologic/Lymphatic: No symptoms reported Neurological/Psychological: No symptoms reported -: Yes All other systems reviewed and negative Physical Exam - Vital signs Vitals: Temp Pulse Resp BP Pulse Ox 98.2 F 68 18 148/86 H 95 03/03/20 17:36 03/03/20 17:36 03/03/20 17:36 03/03/20 17:36 03/03/20 17:36 - General General appearance: Alert, Other - Speaks in full sentences In distress: None - HEENT Head: Normocephalic, Atraumatic Eyes: Normal Pupils: PERRL - Respiratory Respiratory status: Tachypnea. No: No respiratory distress Chest status: Nontender Breath sounds: Normal Chest palpation: Normal - Cardiovascular Rhythm: Regular Heart sounds: Normal auscultation Murmur: No Friction rub: No Gallop: None auscultated - Abdominal Inspection: Normal Distension: No distension Bowel sounds: Normal Tenderness: Nontender - Abdomen soft Organomegaly: No organomegaly - Back Back: Normal, Nontender - Extremities General upper extremity: Normal inspection General lower extremity: Normal inspection - Neurological Neuro grossly intact: Yes Orientation: AAOx4 [place] Coma Scale Eye Opening: Spontaneous [place] Coma Scale Verbal: Oriented [place] Coma Scale Motor: Obeys Commands [place] Coma Scale Total: 15 - Psychological Associated symptoms: Normal affect, Normal mood - Skin Skin Temperature: Warm Skin Moisture: Dry Skin Color: Normal Course - Re-evaluation Re-evalutation: 03/04/20 04:02 Patient states she is feeling better after receiving a breathing treatment here in the ED. She is requesting to receive a another breathing treatment prior to discharge as well as a prednisone taper. All questions were answered prior to discharge. Emergency signs and symptoms, reasons to return to the emergency department discussed with patient. 03/04/20 04:03 Reports from patient's visit less than 24 hours ago reviewed by this MD. - Vital Signs Vital signs: Temp Pulse Resp BP Pulse Ox 97.8 F 63 19 130/74 H 94 03/04/20 03:12 03/04/20 03:12 03/04/20 03:12 03/04/20 03:12 03/04/20 03:12 - Laboratory Result Diagrams: 03/03/20 18:15 03/03/20 18:15 Laboratory results interpreted by me: 03/03/20 03/03/20 03/03/20 18:15 18:15 18:15 RDW 14.1 H Sodium 134.4 L Urine Protein 30 H Ur Leukocyte Esterase SMALL H Discharge - Discharge Clinical Impression: Dyspnea Qualifiers: Dyspnea type: unspecified Qualified Code(s): R06.00 - Dyspnea, unspecified Condition: Stable Disposition: HOME, SELF-CARE Additional Instructions: Return to the Emergency Department without delay if any worse. Follow-up with Dr. Bai today. HOME CARE INSTRUCTIONS & INFORMATION: Thank you for choosing us for your medical needs. We hope you're satisfied with the care you received. After you leave, you must properly care for your problem and, at the same time, observe its progress. Any condition can change. Some illnesses can change rapidly over hours or days. If your condition worsens, return to the Emergency Department or see your physician promptly. ABOUT YOUR X-RAYS AND EKG'S: If you had an EKG or X-rays taken, they have been read by the Emergency Physician. The X-rays and EKG's will also be read by a Radiologist or Drafting Instructor within 24 hours. If discrepancies are noted, you will be notified by telephone. Please be certain the ED has a correct telephone number & address where you can be reached. Also, realize that some fractures or abnormalities do not show up on initial X-rays. If your symptoms continue, see your physician. ABOUT YOUR LABORATORY TEST: If you had laboratory tests, the results have been reviewed by the Emergency Physician. Some test results (for example cultures) may not be available for several days. You will be contacted if any test result shows you need additional treatment. Please be certain the ED has a correct telephone number and address where you can be reached. ABOUT YOUR MEDICATIONS: You will receive instructions on how to take your medicine on the prescription label you receive. Additional information may be provided by the Pharmacy. If you have questions afterwards, call the ED for clarification or further instructions. Some prescribed medications may cause drowsiness. Do not perform tasks such as driving a car or operating machinery without consulting your Pharmacist. If you feel you need a refill of pain medication, your condition will need re-evaluation. Please do not call for a refill of any medication. ABOUT YOUR SIGNATURE: Signature of this document acknowledges to followin. Understanding that you received emergency treatment and that you may be released before al medical problems are known or treated. Please be certain the ED has a correct phone number & address where you can be reached. 2. Acknowledgement that you will arrange for follow-up care as recommended. 3. Authorization for the Emergency Physician to provide information to your follow-up Physician in order to maximize your care. AT ANY TIME, IF YOUR SYMPTOMS CHANGE SIGNIFICANTLY OR WORSEN OR YOU DEVELOP NEW SYMPTOMS, RETURN TO THE EMERGENCY DEPARTMENT IMMEDIATELY FOR RE-EVALUATION. OUR GOAL IS TO PROVIDE EXCELLENT MEDICAL CARE! WE HOPE THAT WE HAVE MET YOUR EXPECTATIONS DURING YOUR EMERGENCY DEPARTMENT VISIT AND THAT YOU FEEL YOU HAVE RECEIVED EXCELLENT CARE! Prescriptions: Prednisone [Deltasone 10 mg Tablet] 10 mg PO ASDIR PRN #21 tablet PRN Reason: Referrals: RUBI BAI MD [Primary Care Provider] - Follow up as needed I personally performed the services described in the documentation, reviewed and edited the documentation which was dictated to the scribe in my presence, and it accurately records my words and actions.
[2020-03-04] MEDS ORDERED: LEVALBUTEROL HCL NEB 0.63 MG/3 ML AMPUL NEB ONE (03:28)
[2020-03-04 04:42] VITALS: BP 165/83
--- NOTE | 2020-03-04 19:26 | EKG REPORT ---
SEVERITY:- NORMAL ECG - SINUS RHYTHM LVH : Confirmed by: Simran Pulliam 04-Mar-2020 19:25:31
== END 2020-03-04 05:01 | disposition home or self-care (01) ==
LOC: ER 17:23
DX: J45.909 Unspecified asthma, uncomplicated (principal); I11.0 Hypertensive heart disease with heart failure; I50.9 Heart failure, unspecified; R06.02 Shortness of breath; R10.13 Epigastric pain; E78.00 Pure hypercholesterolemia, unspecified; I25.10 Atherosclerotic heart disease of native coronary artery without angina pectoris; I25.2 Old myocardial infarction; Z79.899 Other long term (current) drug therapy; Z91.040 Latex allergy status; Z88.1 Allergy status to other antibiotic agents; Z91.018 Allergy to other foods
CPT/HCPCS: 93005; 94640 ×2; 99283; 36415; 87070; 81001; 84484; 71045; 93010; A9270 ×3; J3490; J7512; J7614

== ENCOUNTER → 2020-03-04 | Outpatient (CLI) | payer MEDICARE ==
--- NOTE | 2020-03-04 14:29 | WOMENS IMAGING REPORT ---
EXAM DESCRIPTION: U/S PELVIS NON-OB IMAGES COMPLETED DATE/TIME: 03/04/2020 1:31 pm REASON FOR STUDY: R93.5 ABNORMAL FINDINGS ON DIAGNOSTIC IMAGING OF OTHER ABDOMINAL REGIONS, I R93.5 ABN FINDINGS ON DX IMAGING OF ABD REGIONS, INC RETROPE COMPARISON: None. TECHNIQUE: Dynamic and static grayscale images acquired of the pelvis via transabdominal approach an d recorded on PACS. Additional selected color Doppler and spectral images recorded. LIMITATIONS: None. FINDINGS: Nondiagnostic study. The patient was unable of fill her bladder uterus and ovaries were n ot able to be seen. IMPRESSION: Nondiagnostic study. TECHNICAL DOCUMENTATION: JOB ID: [id number] 2010 [employer]- All Rights Reserved Rev-01/24 Reading location - IP/workstation name: [email or web address]
== END ==
LOC: RAD 12:23
PROVIDERS: ATTEND Physician Assistant
DX: R93.5 Abnormal findings on diagnostic imaging of other abdominal regions, including retroperitoneum (principal)
CPT/HCPCS: 76856

== ENCOUNTER 2020-03-21 12:08 | Emergency (ER) | payer MEDICARE ==
[2020-03-21 12:59] LABS: ABSOLUTE LYMPHOCYTES (AUTO) 2.1 10^3/uL (0.5-4.7); ABSOLUTE MONOCYTES (AUTO) 0.6 10^3/uL (0.1-1.4); ABSOLUTE NEUT (AUTO) 3.8 10^3/uL (1.7-8.2); BASOPHILS % (AUTO) 0.5 % (0-2); EOSINOPHILS % (AUTO) 0.2 % (0-6); HEMOGLOBIN 12.9 g/dL (12.0-15.5); LYMPHOCYTES % (AUTO) 31.4 % (13-45); MEAN CORPUSCULAR HEMOGLOBIN 28.8 pg (27.0-33.4); MEAN CORPUSCULAR VOLUME 85 fl (80-97); MONOCYTES % (AUTO) 9.3 % (3-13); PLATELET COUNT 183 10^3/uL (150-450); RED BLOOD COUNT 4.49 10^6/uL (3.72-5.28); RED CELL DISTRIBUTION WIDTH 14.4 % (11.5-14.0); SEGMENTED NEUTROPHILS % (AUTO) 58.6 % (42-78); TOTAL CELLS COUNTED % (AUTO) 100 %; WHITE BLOOD COUNT 6.6 10^3/uL (4.0-10.5)
--- NOTE | 2020-03-21 13:01 | RADIOLOGY REPORT (SQ) ---
EXAM DESCRIPTION: CHEST SINGLE VIEW IMAGES COMPLETED DATE/TIME: 03/21/2020 12:49 pm REASON FOR STUDY: shortness of breath COMPARISON: 03/03/2020 EXAM PARAMETERS: NUMBER OF VIEWS: One view. TECHNIQUE: Single frontal radiographic view of the chest acquired. RADIATION DOSE: NA LIMITATIONS: None. FINDINGS: LUNGS AND PLEURA: Patchy atelectasis in the left base. Moderately dense opacification in the right base. MEDIASTINUM AND HILAR STRUCTURES: No masses. Contour normal. HEART AND VASCULAR STRUCTURES: Heart size is borderline. There is no acute pulmonary edema. BONES: No acute findings. HARDWARE: None in the chest. OTHER: No other significant finding. IMPRESSION: Right lower lobe pneumonia. Borderline heart size without pulmonary edema. TECHNICAL DOCUMENTATION: JOB ID: [id number] 2010 [employer]- All Rights Reserved Reading location - IP/workstation name: [email or web address]
[2020-03-21 13:22] LABS: ALBUMIN 4.2 g/dL (3.5-5.0); ALKALINE PHOSPHATASE 50 U/L (38-126); ASPARTATE AMINO TRANSFERASE 27 U/L (14-36); BILIRUBIN,TOTAL 0.9 mg/dL (0.2-1.3); BLOOD UREA NITROGEN 12 mg/dL (7-20); CALCIUM 9.6 mg/dL (8.4-10.2); CARBON DIOXIDE 30 mmol/L (22-30); CHLORIDE 96 mmol/L (98-107); GLUCOSE 102 mg/dL (75-110); POTASSIUM 4.3 mmol/L (3.6-5.0); TOTAL PROTEIN 6.6 g/dL (6.3-8.2)
[2020-03-21 13:39] LABS: ANION GAP 4 (5-19)
--- NOTE | 2020-03-21 13:43 | ER Document Report ---
ED General - General Chief Complaint: Shortness Of Breath Stated Complaint: SHORTNESS OF BREATH Time Seen by Provider: 03/21/20 13:19 Primary Care Provider: RUBI AGUIAR MD [Primary Care Provider] - Follow up as needed TRAVEL OUTSIDE OF THE [place] IN LAST 30 DAYS: No - HPI Notes: Patient is a very pleasant 79-year-old female who presents to the emergency department for evaluation of increased coughing and shortness of breath. She states this really only started today. She thought she "had an infection" so she comes to the emergency department for further evaluation. She denies any fevers or chills. No nausea or vomiting. She has some reflux, but she states that is not a new problem, she gets that nearly daily. She is eating and drinking normally. She is urinating more frequently, but admits of occasionally she is taking extra Lasix if she feels like she has fluid in her lungs. She states that she had some mild dysuria, but is taking [id number] Azo. She states her last dose was last evening. She denies any orthopnea. Mild dyspnea on exertion, which she states does feel slightly worse today than most days. Other than extra Lasix on occasion, the patient states she has been taking her medications as prescribed. She denies any known exposures to COVID-19 patients. - Related Data Allergies/Adverse Reactions: latex [Latex] Allergy (Intermediate, Verified 03/21/20 13:32) ITCHING levofloxacin [From Levaquin] Allergy (Unknown, Verified 03/21/20 13:32) saccharin Allergy (Verified 03/21/20 13:32) Penicillins Adverse Reaction (Mild, Verified 03/21/20 13:32) Yeast infections ibuprofen [From Motrin] Adverse Reaction (Verified 03/21/20 13:32) Home Medications: Advair 500/50 mcg twice a day, albuterol nebulizer twice a day, aspirin 81 mg daily, atorvastatin 20 mg daily, calcium 600 mg daily, Celexa 40 mg daily, folate, losartan 100 mg daily, famotidine 40 mg at bedtime as needed, Patanol 0.1% 1 drop twice a day, nitroglycerin 0.2 mg/h transdermally, singular 10 mg daily, Voltaren transdermal as needed, Myrbetriq 25 mg daily, Toprol 25 mg twice daily, omeprazole 20 mg daily Past Medical History - General Information source: Patient - Social History Smoking Status: Never Smoker Family History: Reviewed & Not Pertinent, DM, Hypertension, Malignancy - Past Medical History Cardiac Medical History: Reports: Hx Congestive Heart Failure, Hx Coronary Artery Disease, Hx Heart Attack - nonstemi 2018, Hx Hypercholesterolemia, Hx Hypertension Denies: Hx Pulmonary Embolism Pulmonary Medical History: Reports: Hx Asthma, Hx Bronchitis, Hx Pneumonia Comment Only: Hx COPD - States she has not been diagnosed with COPD Neurological Medical History: Denies: Hx Cerebrovascular Accident, Hx Migraine, Hx Seizures Renal/ Medical History: Denies: Hx Peritoneal Dialysis GI Medical History: Reports: Hx Gastroesophageal Reflux Disease, Hx Hiatal Hernia. Denies: Hx Hepatitis, Hx Ulcer Musculoskeletal Medical History: Reports Hx Arthritis Psychiatric Medical History: Reports: Hx Depression - on occassion Infectious Medical History: Denies: Hx Hepatitis Past Surgical History: Reports: Hx Abdominal Surgery - ODELL, Hx Appendectomy, Hx Orthopedic Surgery, Hx Tonsillectomy. Denies: Hx Hysterectomy, Hx Mastectomy, Hx Open Heart Surgery, Hx Pacemaker - Immunizations Hx Diphtheria, Pertussis, Tetanus Vaccination: No Hx Pneumococcal Vaccination: 07/10/15 Review of Systems - Review of Systems Gastrointestinal: See HPI Genitourinary: See HPI -: Yes All other systems reviewed and negative Physical Exam - Vital signs Vitals: Temp Resp BP Pulse Ox 98.4 F 18 140/72 H 93 03/21/20 12:14 03/21/20 12:14 03/21/20 12:14 03/21/20 12:14 - Notes Notes: This is a very pleasant 79-year-old female who appears her stated age, no acute distress. She has a significant kyphosis, but is awake and alert, cooperative with examiner, able to ambulate without difficulty. Vital signs reviewed, please refer to chart. Head is normocephalic, atraumatic. Pupils equal round, reactive to light. Neck is supple without meningismus. Heart is regular rate and rhythm. Lungs revealed mildly diminished breath sounds in the bases, right greater than left. Abdomen is soft, nontender, normoactive bowel sounds throughout. Extremities without cyanosis, clubbing. She does have 2+ pitting edema to the ankles and feet. Posterior calves are nontender. Peripheral pulses are equal. Skin is warm and dry. Patient is awake, alert, neurological exam is nonfocal. Course - Re-evaluation Re-evalutation: 03/21/20 13:43 Patient presents to the emergency department for evaluation. Her findings today include a chest x-ray that shows right lower lobe pneumonia. The patient has no leukocytosis, no tachycardia, no hypoxia, no fevers. I think is likely that the patient will do well as an outpatient. I will order a COVID-19 test here. We discussed the fact that Azo can mask the findings of a urinalysis. I will go ahead and send her urine for culture. At this point patient looks comfortable. I talked her about the possible dangers of taking extra Lasix without letting her physician know. I am still awaiting electrolytes and creatinine. Patient is currently stable, we will continue to monitor. 03/21/20 14:49 Patient remained stable. She has white blood cells in her urine. I discussed this case with her primary care provider who believes that doxycycline treatment as an outpatient is appropriate. I agree. The patient looks well, nontoxic, ambulating around the room without difficulty. I will have her follow-up closely with him, return to the ED with worsening. - Vital Signs Vital signs: Temp Pulse Resp BP Pulse Ox 98.4 F 12 140/72 H 95 03/21/20 12:14 03/21/20 13:00 03/21/20 12:14 03/21/20 12:56 - Laboratory Result Diagrams: 03/21/20 12:36 03/21/20 12:36 Laboratory results interpreted by me: 03/21/20 03/21/20 03/21/20 12:20 12:36 12:36 RDW 14.4 H Sodium 130.4 L Chloride 96 L Anion Gap 4 L Ur Leukocyte Esterase LARGE H - Diagnostic Test Radiology reviewed: Reports reviewed Radiology results interpreted by me: 03/21/20 13:44 Chest X-Ray 03/21/20 12:15 IMPRESSION: Right lower lobe pneumonia. Borderline heart size without pulmonary edema. - EKG Interpretation by Me Additional EKG results interpreted by me: 03/21/20 13:44 Sinus arrhythmia with a rate of 57 bpm. Normal axis and intervals. Lateral ST and T wave changes, consistent with ischemia versus LVH with strain. There was no significant change compared to prior study. Discharge - Discharge Clinical Impression: Right lower lobe pneumonia Qualifiers: Pneumonia type: due to unspecified organism Qualified Code(s): J18.9 - Pneumonia, unspecified organism Urinary tract infection Qualifiers: Urinary tract infection type: site unspecified Hematuria presence: without hematuria Qualified Code(s): N39.0 - Urinary tract infection, site not specified Condition: Stable Disposition: HOME, SELF-CARE Instructions: Urinary Tract Infection ([facility]), Pneumonia ([facility]) Additional Instructions: Take doxycycline as directed. Please take all of your medications as they are prescribed. Follow-up with primary care in 1 to 2 weeks. If you develop increased shortness of breath, chest pain, or any other new or concerning sym ptoms, please return immediately to the emergency department for evaluation. Referrals: RUBI AGUIAR MD [Primary Care Provider] - Follow up as needed
[2020-03-21 13:49] LABS: APPEARANCE,URINE CLEAR; BILIRUBIN,URINE NEGATIVE (NEGATIVE); COLOR,URINE YELLOW; GLUCOSE, URINE NEGATIVE (NEGATIVE); KETONES,URINE NEGATIVE (NEGATIVE); LEUKOCYTE ESTERASE,URINE LARGE (NEGATIVE); NITRITE,URINE NEGATIVE (NEGATIVE); PROTEIN,URINE NEGATIVE (NEGATIVE); UROBILINOGEN,URINE NEGATIVE mg/dL (<2.0)
[2020-03-21 15:19] VITALS: BP 148/84
--- NOTE | 2020-03-22 14:29 | EKG REPORT ---
SEVERITY:- ABNORMAL ECG - SINUS RHYTHM ABNORMAL T, CONSIDER ISCHEMIA, LATERAL LEADS : Confirmed by: Wilber Matt MD 22-Mar-2020 14:28:34
== END 2020-03-21 15:17 | disposition home or self-care (01) ==
LOC: ER 12:08
DX: J18.9 Pneumonia, unspecified organism (principal); R06.02 Shortness of breath; R05 Cough; R30.0 Dysuria; R06.00 Dyspnea, unspecified; Z88.1 Allergy status to other antibiotic agents; Z88.0 Allergy status to penicillin; Z88.8 Allergy status to other drugs, medicaments and biological substances; Z79.899 Other long term (current) drug therapy; Z79.82 Long term (current) use of aspirin; N39.0 Urinary tract infection, site not specified; Z20.828 Contact with and (suspected) exposure to other viral communicable diseases
CPT/HCPCS: 93005; 99285; 36415; 87086; 85025; 80053; 81001; 71045; 93010; U0003; C9803; 87635

== ENCOUNTER 2020-06-02 10:28 | Emergency (ER) | payer MEDICARE ==
[2020-06-02 13:16] LABS: APPEARANCE,URINE SLIGHTLY-CLOUDY; BILIRUBIN,URINE NEGATIVE (NEGATIVE); COLOR,URINE YELLOW; GLUCOSE, URINE NEGATIVE (NEGATIVE); KETONES,URINE NEGATIVE (NEGATIVE); LEUKOCYTE ESTERASE,URINE MODERATE (NEGATIVE); NITRITE,URINE NEGATIVE (NEGATIVE); PROTEIN,URINE NEGATIVE (NEGATIVE); URINE SPECIFIC GRAVITY 1.019; UROBILINOGEN,URINE NEGATIVE mg/dL (<2.0)
--- NOTE | 2020-06-02 13:35 | ER Document Report ---
Entered by CHIP WILD SCRIBE 06/02/20 1257 Acting as scribe for:BUZZ CANTU MD ED GI/ - General Chief Complaint: Diarrhea Stated Complaint: DIARRHEA Time Seen by Provider: 06/02/20 12:37 Primary Care Provider: RUBI AGUIAR MD [Primary Care Provider] - Follow up as needed Mode of Arrival: Ambulatory Information source: Patient Notes: This 79 year old female patient presents to the ED today with complaints of diarrhea for the past x2.5 weeks. Patient states that the diarrhea was initially every other day then progressed to every day; last night it was every other hour and has now slowed today. When asked if she noticed that she would have more diarrhea after eating, she states "actually, yes." She was seen by her PCP yes terday and was placed on Septra for a bladder infection. Denies fever. TRAVEL OUTSIDE OF THE [place] IN LAST 30 DAYS: No - Related Data Allergies/Adverse Reactions: latex [Latex] Allergy (Intermediate, Verified 03/21/20 13:32) ITCHING levofloxacin [From Levaquin] Allergy (Unknown, Verified 03/21/20 13:32) saccharin Allergy (Verified 03/21/20 13:32) Penicillins Adverse Reaction (Mild, Verified 03/21/20 13:32) Yeast infections ibuprofen [From Motrin] Adverse Reaction (Verified 03/21/20 13:32) Past Medical History - General Information source: Patient, [facility] Records - Social History Smoking Status: Never Smoker Cigarette use (# per day): No Chew tobacco use (# tins/day): No Smoking Education Provided: No Family History: Reviewed & Not Pertinent, DM, Hypertension, Malignancy Patient has suicidal ideation: No Patient has homicidal ideation: No - Past Medical History Cardiac Medical History: Reports: Hx Congestive Heart Failure, Hx Coronary Artery Disease, Hx Heart Attack - nonstemi 2018, Hx Hypercholesterolemia, Hx Hypertension Pulmonary Medical History: Reports: Hx Asthma, Hx Bronchitis, Hx Pneumonia Comment Only: Hx COPD - States she has not been diagnosed with COPD GI Medical History: Reports: Hx Gastroesophageal Reflux Disease, Hx Hiatal Hernia Musculoskeletal Medical History: Reports Hx Arthritis Psychiatric Medical History: Reports: Hx Depression - on occassion Past Surgical History: Reports: Hx Abdominal Surgery - ODELL, Hx Appendectomy, Hx Orthopedic Surgery, Hx Tonsillectomy - Immunizations Hx Diphtheria, Pertussis, Tetanus Vaccination: No Hx Pneumococcal Vaccination: 07/10/15 Review of Systems - Review of Systems Constitutional: See HPI. denies: Fever EENT: No symptoms reported Cardiovascular: No symptoms reported Respiratory: No symptoms reported Gastrointestinal: See HPI, Diarrhea Genitourinary: No symptoms reported Female Genitourinary: No symptoms reported Musculoskeletal: No symptoms reported Skin: No symptoms reported Hematologic/Lymphatic: No symptoms reported Neurological/Psychological: No symptoms reported -: Yes All other systems reviewed and negative Physical Exam - Vital signs Vitals: Temp Pulse Resp BP Pulse Ox 98.0 F 56 L 20 129/56 H 97 06/02/20 10:34 06/02/20 10:34 06/02/20 10:34 06/02/20 10:34 06/02/20 10:34 - General General appearance: Alert In distress: None - HEENT Head: Normocephalic, Atraumatic Eyes: Normal Pupils: PERRL - Respiratory Respiratory status: No respiratory distress Chest status: Nontender Breath sounds: Normal Chest palpation: Normal - Cardiovascular Rhythm: Regular Heart sounds: Normal auscultation Murmur: No Friction rub: No Gallop: None auscultated - Abdominal Inspection: Normal Distension: No distension Bowel sounds: Hyperactive - Percussion resonant gas Tenderness: Nontender - Abdomen soft Organomegaly: No organomegaly - Back Back: Other - Marked thoracic kyphosis - Extremities General upper extremity: Normal inspection General lower extremity: Normal inspection. No: Edema - Neurological Neuro grossly intact: Yes Orientation: AAOx4 Wall[place] Coma Scale Eye Opening: Spontaneous [place] Coma Scale Verbal: Oriented Umair Coma Scale Motor: Obeys Commands Wall[place] Coma Scale Total: 15 - Psychological Associated symptoms: Normal affect, Normal mood - Skin Skin Temperature: Warm Skin Moisture: Dry Skin Color: Normal Course - Re-evaluation Re-evalutation: 06/02/20 15:37 Patient has been here now for 5 hours and has not had a bowel movement. I think it is safe to send her home with a collection cup for an outpatient stool specimen. 06/02/20 20:28 The patient was evaluated during the global COVID-19 pandemic and that diagnosis was suspected/considered upon their initial presentation. Their evaluation, treatment and testing was consistent with current guidelines for patients who present with complaints or symptoms that may be related to COVID-19. - Vital Signs Vital signs: Temp Pulse Resp BP Pulse Ox 98.0 F 60 18 124/70 95 06/02/20 16:17 06/02/20 16:17 06/02/20 16:17 06/02/20 16:17 06/02/20 16:17 - Laboratory Result Diagrams: 06/02/20 13:30 06/02/20 13:30 Laboratory results interpreted by me: 06/02/20 06/02/20 06/02/20 12:50 13:30 13:30 RDW 14.8 H Sodium 131.3 L Chloride 93 L Est GFR (MDRD) Non-Af 58 L Ur Leukocyte Esterase MODERATE H Discharge - Discharge Clinical Impression: Diarrhea Qualifiers: Diarrhea type: unspecified type Qualified Code(s): R19.7 - Diarrhea, unspecified Condition: Stable Disposition: HOME, SELF-CARE Additional Instructions: Diarrhea Diarrhea means frequent, watery stools. There are many causes. Any problem that keeps the intestinal tract from absorbing water from the stool can lead to diarrhea. A sudden new diarrhea problem is usually caused by a virus, food sensitivit y, toxic bacteria, or drugs. In this case, we expect the problem to go away soon. Testing is done only if you seem seriously ill from the diarrhea. If you have chronic diarrhea, or diarrhea that keeps coming back, we need to find out why. Chronic diarrhea can be due to inflammation of the bowels such as Crohn's disease or ulcerative colitis, food sensitivity such as intolerance to lactose or wheat protein, irritable bowel syndrome, and other problems. If your diarrhea is a significant problem but it's not clear why you have it, we'll refer you to a specialist for further testing. During an episode of diarrhea, drink small amounts (two to six ounces) of clear liquids (soft drinks, sport drinks, herb teas, broth, etc). Take fluids frequently to prevent dehydration. It's usually not a problem to take mild anti- diarrhea medication such as Kaopectate or Pepto-Bismol. As the diarrhea eases, advance to small amounts of bland food (mashed potato, toast) for 24 hours. Call the physician if blood appears in your vomit or stool, if vomiting lasts longer than 24 hours, if the abdominal pain worsens or becomes localized to one area, if you develop high fever, or if you become lightheaded and weak. Collect the stool specimen when you do have diarrhea at home and take to the outpatient lab for analysis. Try Imodium-AD for diarrhea if it continues to be a problem. Drink plenty of fluids. Follow-up with Dr. Aguiar in the office if not improving. RETURN TO THE EMERGENCY ROOM IF ANY NEW OR WORSENING SYMPTOMS. Forms: Follow-Up Laboratory Testing Referrals: RUBI AGUIAR MD [Primary Care Provider] - Follow up as needed I personally performed the services described in the documentation, reviewed and edited the documentation which was dictated to the scribe in my presence, and it accurately records my words and actions.
[2020-06-02 14:00] LABS: ABSOLUTE LYMPHOCYTES (AUTO) 1.4 10^3/uL (0.5-4.7); ABSOLUTE MONOCYTES (AUTO) 0.6 10^3/uL (0.1-1.4); ABSOLUTE NEUT (AUTO) 3.1 10^3/uL (1.7-8.2); BASOPHILS % (AUTO) 0.4 % (0-2); EOSINOPHILS % (AUTO) 0.2 % (0-6); HEMATOCRIT 37.6 % (36.0-47.0); LYMPHOCYTES % (AUTO) 27.3 % (13-45); MEAN CORPUSCULAR HGB CONC 34.6 g/dL (32.0-36.0); MEAN CORPUSCULAR VOLUME 81 fl (80-97); MONOCYTES % (AUTO) 12.1 % (3-13); PLATELET COUNT 208 10^3/uL (150-450); RED BLOOD COUNT 4.64 10^6/uL (3.72-5.28); RED CELL DISTRIBUTION WIDTH 14.8 % (11.5-14.0); TOTAL CELLS COUNTED % (AUTO) 100 %; WHITE BLOOD COUNT 5.2 10^3/uL (4.0-10.5)
[2020-06-02 14:21] LABS: ALBUMIN 4.2 g/dL (3.5-5.0); ALKALINE PHOSPHATASE 62 U/L (38-126); ANION GAP 9 (5-19); ASPARTATE AMINO TRANSFERASE 28 U/L (14-36); BILIRUBIN,DIRECT 0.4 mg/dL (0.0-0.4); BILIRUBIN,TOTAL 0.8 mg/dL (0.2-1.3); BLOOD UREA NITROGEN 17 mg/dL (7-20); CALCIUM 9.7 mg/dL (8.4-10.2); CARBON DIOXIDE 29 mmol/L (22-30); CHLORIDE 93 mmol/L (98-107); GLUCOSE 86 mg/dL (75-110); POTASSIUM 4.1 mmol/L (3.6-5.0); TOTAL PROTEIN 6.6 g/dL (6.3-8.2)
[2020-06-02 16:17] VITALS: BP 124/70
== END 2020-06-02 16:17 | disposition home or self-care (01) ==
LOC: ER 10:28
DX: R19.7 Diarrhea, unspecified (principal); Z88.8 Allergy status to other drugs, medicaments and biological substances; Z88.0 Allergy status to penicillin; I50.9 Heart failure, unspecified; I25.10 Atherosclerotic heart disease of native coronary artery without angina pectoris; I25.2 Old myocardial infarction
CPT/HCPCS: 36415; 80053; 81001; 83735; 85025; 99283

== ENCOUNTER 2020-06-04 11:26 | Emergency (ER) | payer MEDICARE ==
--- NOTE | 2020-06-04 11:52 | ER Document Report ---
ED Medical Screen (RME) - General Chief Complaint: Epigastric Pain Stated Complaint: EPIGASTRIC PAIN,BURPING Time Seen by Provider: 06/04/20 11:45 Primary Care Provider: RUBI AGUIAR MD [Primary Care Provider] - Follow up as needed TRAVEL OUTSIDE OF THE [place] IN LAST 30 DAYS: No - HPI Notes: 06/04/20 11:51 79-year-old female to the emergency department with complaints of upper abdominal pain and chest pain that began today after eating a lifesaver. She states that she denies any shortness of breath. She states that she has not been having any vomiting or nausea. She states that she has had diarrhea for 2 weeks and has been eating predominantly a soft diet. Denies any fevers or chills. History of heart disease and congestive heart failure. Denies feeling particula rly short of breath today. I performed a brief medical screening exam on the patient determined that the patient needs further evaluation and management by main side provider. I have placed initial orders to help expedite care. - Related Data Allergies/Adverse Reactions: latex [Latex] Allergy (Intermediate, Verified 06/04/20 11:45) ITCHING levofloxacin [From Levaquin] Allergy (Unknown, Verified 06/04/20 11:45) saccharin Allergy (Verified 06/04/20 11:45) Penicillins Adverse Reaction (Mild, Verified 06/04/20 11:45) Yeast infections ibuprofen [From Motrin] Adverse Reaction (Verified 06/04/20 11:45) Past Medical History - Past Medical History Cardiac Medical History: Reports: Hx Congestive Heart Failure, Hx Coronary Artery Disease, Hx Heart Attack - nonstemi 2018, Hx Hypercholesterolemia, Hx Hypertension Denies: Hx Pulmonary Embolism Pulmonary Medical History: Reports: Hx Asthma, Hx Bronchitis, Hx Pneumonia Comment Only: Hx COPD - States she has not been diagnosed with COPD Neurological Medical History: Denies: Hx Cerebrovascular Accident, Hx Migraine, Hx Seizures Renal/ Medical History: Denies: Hx Peritoneal Dialysis GI Medical History: Reports: Hx Gastroesophageal Reflux Disease, Hx Hiatal Hernia. Denies: Hx Hepatitis, Hx Ulcer Musculoskeltal Medical History: Reports Hx Arthritis Psychiatric Medical History: Reports: Hx Depression - on occassion Infectious Medical History: Denies: Hx Hepatitis Past Surgical History: Reports: Hx Abdominal Surgery - ODELL, Hx Appendectomy, Hx Orthopedic Surgery, Hx Tonsillectomy. Denies: Hx Hysterectomy, Hx Mastectomy, Hx Open Heart Surgery, Hx Pacemaker - Immunizations Hx Diphtheria, Pertussis, Tetanus Vaccination: No Physical Exam - Vital signs Vitals: Temp Pulse Resp BP Pulse Ox 97.9 F 78 20 171/67 H 94 06/04/20 11:41 06/04/20 11:41 06/04/20 11:41 06/04/20 11:41 06/04/20 11:41 Course - Vital Signs Vital signs: Temp Pulse Resp BP Pulse Ox 97.9 F 78 20 171/67 H 94 06/04/20 11:41 06/04/20 11:41 06/04/20 11:41 06/04/20 11:41 06/04/20 11:41 Doctor's Discharge - Discharge Referrals: RUBI AGUIAR MD [Primary Care Provider] - Follow up as needed
--- NOTE | 2020-06-04 12:32 | ER Document Report ---
ED General - General Chief Complaint: Abdominal Pain Stated Complaint: EPIGASTRIC PAIN,BURPING Time Seen by Provider: 06/04/20 11:45 Primary Care Provider: RUBI AGUIAR MD [Primary Care Provider] - Follow up as needed Notes: This 79-year-old woman presents to the emergency department with a complaint of abdominal pain after eating a lifesaver. She states the pain lasted a little over an hour. Presently she is pain-free, no nausea or vomiting. She ate breakfast this morning without difficulties. She has had normal bowel movements, denies any bowel movement today. She also denies fever, chills, dysuria or back pain. TRAVEL OUTSIDE OF THE [place] IN LAST 30 DAYS: No - Related Data Allergies/Adverse Reactions: latex [Latex] Allergy (Intermediate, Verified 06/04/20 11:45) ITCHING levofloxacin [From Levaquin] Allergy (Unknown, Verified 06/04/20 11:45) saccharin Allergy (Verified 06/04/20 11:45) Penicillins Adverse Reaction (Mild, Verified 06/04/20 11:45) Yeast infections ibuprofen [From Motrin] Adverse Reaction (Verified 06/04/20 11:45) Past Medical History - Social History Smoking Status: Never Smoker Family History: Reviewed & Not Pertinent, DM, Hypertension, Malignancy - Past Medical History Cardiac Medical History: Reports: Hx Congestive Heart Failure, Hx Coronary Artery Disease, Hx Heart Attack - nonstemi 2018, Hx Hypercholesterolemia, Hx Hypertension Denies: Hx Pulmonary Embolism Pulmonary Medical History: Reports: Hx Asthma, Hx Bronchitis, Hx Pneumonia Comment Only: Hx COPD - States she has not been diagnosed with COPD Neurological Medical History: Denies: Hx Cerebrovascular Accident, Hx Migraine, Hx Seizures Renal/ Medical History: Denies: Hx Peritoneal Dialysis GI Medical History: Reports: Hx Gastroesophageal Reflux Disease, Hx Hiatal Hernia. Denies: Hx Hepatitis, Hx Ulcer Musculoskeletal Medical History: Reports Hx Arthritis Psychiatric Medical History: Reports: Hx Depression - on occassion Infectious Medical History: Denies: Hx Hepatitis Past Surgical History: Reports: Hx Abdominal Surgery - ODELL, Hx Appendectomy, Hx Orthopedic Surgery, Hx Tonsillectomy. Denies: Hx Hysterectomy, Hx Mastectomy, Hx Open Heart Surgery, Hx Pacemaker - Immunizations Hx Diphtheria, Pertussis, Tetanus Vaccination: No Hx Pneumococcal Vaccination: 07/10/15 Review of Systems - Review of Systems Notes: Constitutional: Negative for fever. HENT: Negative for sore throat. Eyes: Negative for visual changes. Cardiovascular: Negative for chest pain. Respiratory: Negative for shortness of breath. Gastrointestinal: See HPI Genitourinary: Negative for dysuria. Musculoskeletal: Negative for back pain. Skin: Negative for rash. Neurological: Negative for headaches, weakness or numbness. 10 point ROS negative except as marked above and in HPI. Physical Exam - Vital signs Vitals: Temp Pulse Resp BP Pulse Ox 97.9 F 78 20 171/67 H 94 06/04/20 11:41 06/04/20 11:41 06/04/20 11:41 06/04/20 11:41 06/04/20 11:41 - Notes Notes: PHYSICAL EXAMINATION: Physical Exam: General: Well-nourished well-developed in no acute distress HEENT: NC/AT, pupils equal round and reactive to light, MM moist,nares clear, oropharynx clear, airway patent Neck: supple, no adenopathy, no masses. Good range of motion Lungs: clear, no wheezing, no rales no rhonchi CVS: Regular rate and rhythm no murmur gallop or rub Abdomen: Soft, active, nontender, no masses, no hepatosplenomegaly Ext: No edema, clubbing or cyanosis. Neuro: Alert and responsive, moving all 4 extremities on command, cranial nerves intact, no focal findings Skin: Intact no open lesions, no rash PSYCH: Normal mood, normal affect. Course - Re-evaluation Re-evalutation: 06/04/20 14:33 I have reviewed the chest x-ray KUB and lab data on this patient and all negative. She is asymptomatic at this time. The patient notes that her doctor called a prescription in for a fungus infection however the pharmacy where she was going to pick the medication up that is now closed. She is requesting medi cation for her fungus infection. I am giving her a prescription for Diflucan 150 mg tablets will dispense three 1 tablet daily. - Vital Signs Vital signs: Temp Pulse Resp BP Pulse Ox 97.9 F 78 20 171/67 H 94 06/04/20 11:41 06/04/20 11:41 06/04/20 11:41 06/04/20 11:41 06/04/20 11:41 - Laboratory Result Diagrams: 06/04/20 12:15 06/04/20 12:15 Laboratory results interpreted by me: 06/04/20 06/04/20 12:15 12:15 RDW 14.7 H Lymph % (Auto) 11.1 L Seg Neutrophils % 78.9 H Sodium 128.7 L Chloride 92 L Direct Bilirubin 0.5 H AST 40 H - Diagnostic Test Radiology reviewed: Image reviewed, Reports reviewed Radiology results interpreted by me: 06/04/20 14:34 Chest x-ray: No acute cardiopulmonary findings KUB x-ray: Scattered nonspecific gas pattern, no obvious obstructive findings. - EKG Interpretation by Me Rate: Normal - EKG interpreted by Dr. Doyle: Normal sinus rhythm, rate 77, normal axis, acute ST or T wave abnormalities, no ischemic findings, there is no significant change noted when compared to 03/2020 EKG. Discharge - Discharge Clinical Impression: Pain, abdominal, nonspecific, Sparkle UTI Condition: Good Disposition: HOME, SELF-CARE Instructions: Abdominal Pain ([facility]) Additional Instructions: You were seen in the emergency department with abdominal pain which began after you ate a lifesaver. The x-rays and lab tests are unremarkable. Please use the antifungal medication as prescribed. You may cloth picker the prescription that was sent from your doctors office on Saturday or Saturday depending on when the pharmacy reopens. Push fluids, use Tylenol for pain, and to follow-up with your primary care doctor as needed HOME CARE INSTRUCTIONS & INFORMATION: Thank you for choosing us for your medical needs. We hope you're satisfied with the care you received. After you leave, you must properly care for your problem and, at the same time, observe its progress. Any condition can change. Some illnesses can change rapidly over hours or days. If your condition worsens, return to the Emergency Department or see your physician promptly. ABOUT YOUR X-RAYS AND EKG'S: If you had an EKG or X-rays taken, they have been read by the Emergency Physician. The X-rays and EKG's will also be read by a Radiologist or Make Up Operator within 24 hours. If discrepancies are noted, you will be notified by telephone. Please be certain the ED has a correct telephone number & address where you can be reached. Also, realize that some fractures or abnormalities do not show up on initial X-rays. If your symptoms continue, see your physician. ABOUT YOUR LABORATORY TEST: If you had laboratory tests, the results have been reviewed by the Emergency Physician. Some test results (for example cultures) may not be available for several days. You will be contacted if any test result shows you need additional treatment. Please be certain the ED has a correct telephone number and address where you can be reached. ABOUT YOUR MEDICATIONS: You will receive instructions on how to take your medicine on the prescription label you receive. Additional information may be provided by the Pharmacy. If you have questions afterwards, call the ED for clarification or further instructions. Some prescribed medications may cause drowsiness. Do not perform tasks such as driving a car or operating machinery without consulting your Pharmacist. If you feel you need a refill of pain medication, your condition will need re-evaluation. Please do not call for a refill of any medication. ABOUT YOUR SIGNATURE: Signature of this document acknowledges to followin. Understanding that you received emergency treatment and that you may be released before al medical problems are known or treated. Please be certain the ED has a correct phone number & address where you can be reached. 2. Acknowledgement that you will arrange for follow-up care as recommended. 3. Authorization for the Emergency Physician to provide information to your follow-up Physician in order to maximize your care. AT ANY TIME, IF YOUR SYMPTOMS CHANGE SIGNIFICANTLY OR WORSEN OR YOU DEVELOP NEW SYMPTOMS, RETURN TO THE EMERGENCY DEPARTMENT IMMEDIATELY FOR RE-EVALUATION. OUR GOAL IS TO PROVIDE EXCELLENT MEDICAL CARE! WE HOPE THAT WE HAVE MET YOUR EXPECTATIONS DURING YOUR EMERGENCY DEPARTMENT VISIT AND THAT YOU FEEL YOU HAVE RECEIVED EXCELLENT CARE! Prescriptions: Fluconazole [Diflucan] 150 mg PO DAILY #3 tablet Referrals: RUBI AGUIAR MD [Primary Care Provider] - Follow up as needed
[2020-06-04 12:39] LABS: ABSOLUTE LYMPHOCYTES (AUTO) 0.5 10^3/uL (0.5-4.7); ABSOLUTE MONOCYTES (AUTO) 0.4 10^3/uL (0.1-1.4); ABSOLUTE NEUT (AUTO) 3.6 10^3/uL (1.7-8.2); BASOPHILS % (AUTO) 0.4 % (0-2); EOSINOPHILS % (AUTO) 0.1 % (0-6); HEMATOCRIT 38.5 % (36.0-47.0); HEMOGLOBIN 12.9 g/dL (12.0-15.5); LYMPHOCYTES % (AUTO) 11.1 % (13-45); MEAN CORPUSCULAR HEMOGLOBIN 27.3 pg (27.0-33.4); MEAN CORPUSCULAR HGB CONC 33.6 g/dL (32.0-36.0); MEAN CORPUSCULAR VOLUME 81 fl (80-97); MONOCYTES % (AUTO) 9.5 % (3-13); PLATELET COUNT 227 10^3/uL (150-450); RED BLOOD COUNT 4.74 10^6/uL (3.72-5.28); RED CELL DISTRIBUTION WIDTH 14.7 % (11.5-14.0); SEGMENTED NEUTROPHILS % (AUTO) 78.9 % (42-78); TOTAL CELLS COUNTED % (AUTO) 100 %; WHITE BLOOD COUNT 4.6 10^3/uL (4.0-10.5)
[2020-06-04 12:57] LABS: ALBUMIN 4.4 g/dL (3.5-5.0); ALKALINE PHOSPHATASE 71 U/L (38-126); ANION GAP 12 (5-19); ASPARTATE AMINO TRANSFERASE 40 U/L (14-36); BILIRUBIN,DIRECT 0.5 mg/dL (0.0-0.4); BILIRUBIN,TOTAL 0.8 mg/dL (0.2-1.3); BLOOD UREA NITROGEN 20 mg/dL (7-20); CALCIUM 9.6 mg/dL (8.4-10.2); CARBON DIOXIDE 25 mmol/L (22-30); CHLORIDE 92 mmol/L (98-107); GLUCOSE 102 mg/dL (75-110); POTASSIUM 4.6 mmol/L (3.6-5.0); TOTAL PROTEIN 6.9 g/dL (6.3-8.2)
--- NOTE | 2020-06-04 13:47 | RADIOLOGY REPORT (SQ) ---
EXAM DESCRIPTION: CHEST SINGLE VIEW IMAGES COMPLETED DATE/TIME: 06/04/2020 12:06 pm REASON FOR STUDY: chest pain, epigastric abd pain COMPARISON: 03/21/2020 TECHNIQUE: Single frontal radiographic view of the chest acquired. NUMBER OF VIEWS: One view. LIMITATIONS: None. FINDINGS: LUNGS AND PLEURA: No pneumothorax. Similar scattered basilar scarring. No consolidation or pleural effusion. MEDIASTINUM AND HILAR STRUCTURES: Stable. HEART AND VASCULAR STRUCTURES: Stable. BONES: No acute findings. HARDWARE: None in the chest. OTHER: Similar appearance of right diaphragmatic hernia. IMPRESSION: NO ACUTE FINDINGS. TECHNICAL DOCUMENTATION: JOB ID: [id number] [id number] 2010 [employer]- All Rights Reserved Reading location - IP/workstation name: [email or web address]
--- NOTE | 2020-06-04 14:09 | RADIOLOGY REPORT (SQ) ---
EXAM DESCRIPTION: KUB/ABDOMEN (SINGLE VIEW) IMAGES COMPLETED DATE/TIME: 06/04/2020 1:30 pm REASON FOR STUDY: Abdominal pain COMPARISON: 01/19/2020 NUMBER OF VIEWS: One view. TECHNIQUE: Supine radiographic image of the abdomen acquired. LIMITATIONS: None. FINDINGS: BOWEL GAS PATTERN: Scattered non-dilated small bowel loops. Moderate gas distention of th e cecum, 8.6 cm transverse dimension. CALCIFICATIONS: No suspicious calcifications. SOFT TISSUES: No gross mass or suggestion of organomegaly. HARDWARE: None in the abdomen.. BONES: No acute fracture. No worrisome bone lesions. OTHER: No other significant finding. IMPRESSION: NON-SPECIFIC BOWEL GAS PATTERN. Scattered non-dilated small bowel loops. Moderate gas distention of the cecum, 8.6 cm transverse dimension.. TECHNICAL DOCUMENTATION: JOB ID: [id number] [id number] 2010 [employer]- All Rights Reserved Reading location - IP/workstation name: [email or web address]
[2020-06-04 14:35] LABS: APPEARANCE,URINE CLEAR; BILIRUBIN,URINE NEGATIVE (NEGATIVE); COLOR,URINE YELLOW; GLUCOSE, URINE NEGATIVE (NEGATIVE); KETONES,URINE 20 mg/dL (NEGATIVE); PROTEIN,URINE NEGATIVE (NEGATIVE); UROBILINOGEN,URINE NEGATIVE mg/dL (<2.0)
[2020-06-04 14:53] VITALS: BP 145/74
--- NOTE | 2020-06-04 21:48 | EKG REPORT ---
SEVERITY:- NORMAL ECG - SINUS RHYTHM : Confirmed by: Peg Trujillo MD 04-Jun-2020 21:48:02
== END 2020-06-04 15:24 | disposition home or self-care (01) ==
LOC: ER 11:26
DX: B37.49 Other urogenital candidiasis (principal); R10.9 Unspecified abdominal pain; R14.2 Eructation; Z88.8 Allergy status to other drugs, medicaments and biological substances; Z88.1 Allergy status to other antibiotic agents; Z88.0 Allergy status to penicillin; I50.9 Heart failure, unspecified; I11.0 Hypertensive heart disease with heart failure; I25.10 Atherosclerotic heart disease of native coronary artery without angina pectoris; I25.2 Old myocardial infarction; J45.909 Unspecified asthma, uncomplicated
CPT/HCPCS: 36415; 71045; 74018; 80053; 81001; 83690; 84484; 85025; 87086; 87088; 87186; 93005; 93010; 99285

== ENCOUNTER 2020-06-06 07:54 | Emergency (ER) | payer MEDICARE ==
--- NOTE | 2020-06-06 09:25 | ER Document Report ---
ED GI/ - General Chief Complaint: Diarrhea Stated Complaint: DIARRHEA,ABDOMINAL PAIN Time Seen by Provider: 06/06/20 09:00 Primary Care Provider: RUBI AGUIAR MD [Primary Care Provider] - Follow up as needed Notes: 79-year-old woman presenting to the emergency department history of diarrhea and seen in the emergency department on 2 previous occasions. She presents to the emergency department this morning stating that she has brought in a stool sample and wanted it to be checked. She denies any new symptoms and is here specifically for that reason. TRAVEL OUTSIDE OF THE [place] IN LAST 30 DAYS: No - Related Data Allergies/Adverse Reactions: latex [Latex] Allergy (Intermediate, Verified 06/06/20 08:02) ITCHING levofloxacin [From Levaquin] Allergy (Unknown, Verified 06/06/20 08:02) saccharin Allergy (Verified 06/06/20 08:02) Penicillins Adverse Reaction (Mild, Verified 06/06/20 08:02) Yeast infections ibuprofen [From Motrin] Adverse Reaction (Verified 06/06/20 08:02) Past Medical History - Social History Smoking Status: Never Smoker Chew tobacco use (# tins/day): No Frequency of alcohol use: Occasional Drug Abuse: None Family History: Reviewed & Not Pertinent, DM, Hypertension, Malignancy Patient has homicidal ideation: No - Past Medical History Cardiac Medical History: Reports: Hx Congestive Heart Failure, Hx Coronary Artery Disease, Hx Heart Attack - nonstemi 2018, Hx Hypercholesterolemia, Hx Hypertension Denies: Hx Pulmonary Embolism Pulmonary Medical History: Reports: Hx Asthma, Hx Bronchitis, Hx Pneumonia Comment Only: Hx COPD - States she has not been diagnosed with COPD Neurological Medical History: Denies: Hx Cerebrovascular Accident, Hx Migraine, Hx Seizures Renal/ Medical History: Denies: Hx Peritoneal Dialysis GI Medical History: Reports: Hx Gastroesophageal Reflux Disease, Hx Hiatal Hernia. Denies: Hx Hepatitis, Hx Ulcer Musculoskeletal Medical History: Reports Hx Arthritis Psychiatric Medical History: Reports: Hx Depression - on occassion Infectious Medical History: Denies: Hx Hepatitis Past Surgical History: Reports: Hx Abdominal Surgery - ODELL, Hx Appendectomy, Hx Orthopedic Surgery, Hx Tonsillectomy. Denies: Hx Hysterectomy, Hx Mastectomy, Hx Open Heart Surgery, Hx Pacemaker - Immunizations Hx Diphtheria, Pertussis, Tetanus Vaccination: No Hx Pneumococcal Vaccination: 11/01/15 Review of Systems - Review of Systems Notes: Constitutional: Negative for fever. HENT: Negative for sore throat. Eyes: Negative for visual changes. Cardiovascular: Negative for chest pain. Respiratory: Negative for shortness of breath. Gastrointestinal: See HPI Genitourinary: Negative for dysuria. Musculoskeletal: Negative for back pain. Skin: Negative for rash. Neurological: Negative for headaches, weakness or numbness. 10 point ROS negative except as marked above and in HPI. Physical Exam - Vital signs Vitals: Temp Pulse Resp BP Pulse Ox 97.8 F 57 L 16 148/58 H 96 06/06/20 08:10 06/06/20 08:10 06/06/20 08:10 06/06/20 08:10 06/06/20 08:10 - Notes Notes: PHYSICAL EXAMINATION: Physical Exam: General: Well-nourished well-developed short stature 79-year-old female no acute distress HEENT: NC/AT, pupils equal round and reactive to light, MM moist,nares clear, oropharynx clear, airway patent Neck: supple, no adenopathy, no masses. Good range of motion Lungs: clear, no wheezing, no rales no rhonchi CVS: Regular rate and rhythm no murmur gallop or rub Abdomen: Soft, active, nontender, no masses, no hepatosplenomegaly Ext: No edema, clubbing or cyanosis. Neuro: Alert and responsive, moving all 4 extremities on command, cranial nerves intact, no focal findings Skin: Intact no open lesions, no rash Course - Vital Signs Vital signs: Temp Pulse Resp BP Pulse Ox 97.8 F 57 L 16 148/58 H 96 06/06/20 08:10 06/06/20 08:10 06/06/20 08:10 06/06/20 08:10 06/06/20 08:10 Discharge - Discharge Clinical Impression: Diarrhea Qualifiers: Diarrhea type: unspecified type Qualified Code(s): R19.7 - Diarrhea, unspecified Condition: Good Disposition: HOME, SELF-CARE Instructions: Diarrhea, Nonspecific ([facility]) Additional Instructions: We will send the stool specimen that you brought to the hospital for lab analysis. Your primary care doctor will be able to access today results. Please follow-up with your primary care doctor regarding your ongoing symptoms if needed. HOME CARE INSTRUCTIONS & INFORMATION: Thank you for choosing us for your medical needs. We hope you're satisfied with the care you received. After you leave, you must properly care for your problem and, at the same time, observe its progress. Any condition can change. Some illnesses can change rapidly over hours or days. If your condition worsens, return to the Emergency Department or see your physician promptly. ABOUT YOUR X-RAYS AND EKG'S: If you had an EKG or X-rays taken, they have been read by the Emergency Physician. The X-rays and EKG's will also be read by a Radiologist or Rig Supervisor within 24 hours. If discrepancies are noted, you will be notified by telephone. Please be certain the ED has a correct telephone number & address where you can be reached. Also, realize that some fractures or abnormalities do not show up on initial X-rays. If your symptoms continue, see your physician. ABOUT YOUR LABORATORY TEST: If you had laboratory tests, the results have been reviewed by the Emergency Physician. Some test results (for example cultures) may not be available for several days. You will be contacted if any test result shows you need additional treatment. Please be certain the ED has a correct telephone number and address where you can be reached. ABOUT YOUR MEDICATIONS: You will receive instructions on how to take your medicine on the prescription label you receive. Additional information may be provided by the Pharmacy. If you have questions afterwards, call the ED for clarification or further instructions. Some prescribed medications may cause drowsiness. Do not perform tasks such as driving a car or operating machinery without consulting your Pharmacist. If you feel you need a refill of pain medication, your condition will need re-evaluation. Please do not call for a refill of any medication. ABOUT YOUR SIGNATURE: Signature of this document acknowledges to followin. Understanding that you received emergency treatment and that you may be released before al medical problems are known or treated. Please be certain the ED has a correct phone number & address where you can be reached. 2. Acknowledgement that you will arrange for follow-up care as recommended. 3. Authorization for the Emergency Physician to provide information to your follow-up Physician in order to maximize your care. AT ANY TIME, IF YOUR SYMPTOMS CHANGE SIGNIFICANTLY OR WORSEN OR YOU DEVELOP NEW SYMPTOMS, RETURN TO THE EMERGENCY DEPARTMENT IMMEDIATELY FOR RE-EVALUATION. OUR GOAL IS TO PROVIDE EXCELLENT MEDICAL CARE! WE HOPE THAT WE HAVE MET YOUR EXPECTATIONS DURING YOUR EMERGENCY DEPARTMENT VISIT AND THAT YOU FEEL YOU HAVE RECEIVED EXCELLENT CARE! Referrals: RUBI AGUIAR MD [Primary Care Provider] - Follow up as needed
[2020-06-06 09:48] VITALS: BP 140/60
== END 2020-06-06 09:40 | disposition home or self-care (01) ==
LOC: ER 07:54
DX: R19.7 Diarrhea, unspecified (principal); I25.10 Atherosclerotic heart disease of native coronary artery without angina pectoris; I10 Essential (primary) hypertension; J45.909 Unspecified asthma, uncomplicated; Z91.040 Latex allergy status; Z88.1 Allergy status to other antibiotic agents; Z91.048 Other nonmedicinal substance allergy status; Z88.0 Allergy status to penicillin
CPT/HCPCS: 36415; 87045; 87205; 99282

== ENCOUNTER 2020-07-25 04:10 | Emergency (ER) | payer MEDICARE ==
[2020-07-25 07:19] LABS: APPEARANCE,URINE CLEAR; BILIRUBIN,URINE NEGATIVE (NEGATIVE); COLOR,URINE YELLOW; GLUCOSE, URINE NEGATIVE (NEGATIVE); KETONES,URINE NEGATIVE (NEGATIVE); LEUKOCYTE ESTERASE,URINE LARGE (NEGATIVE); NITRITE,URINE NEGATIVE (NEGATIVE); PROTEIN,URINE NEGATIVE (NEGATIVE); UROBILINOGEN,URINE NEGATIVE mg/dL (<2.0)
[2020-07-25 10:09] LABS: ABSOLUTE LYMPHOCYTES (AUTO) 1.7 10^3/uL (0.5-4.7); ABSOLUTE MONOCYTES (AUTO) 0.6 10^3/uL (0.1-1.4); ABSOLUTE NEUT (AUTO) 3.5 10^3/uL (1.7-8.2); BASOPHILS % (AUTO) 0.4 % (0-2); EOSINOPHILS % (AUTO) 0.1 % (0-6); HEMATOCRIT 38.1 % (36.0-47.0); HEMOGLOBIN 12.8 g/dL (12.0-15.5); LYMPHOCYTES % (AUTO) 29.7 % (13-45); MEAN CORPUSCULAR HGB CONC 33.6 g/dL (32.0-36.0); MEAN CORPUSCULAR VOLUME 83 fl (80-97); MONOCYTES % (AUTO) 9.6 % (3-13); PLATELET COUNT 202 10^3/uL (150-450); RED BLOOD COUNT 4.58 10^6/uL (3.72-5.28); RED CELL DISTRIBUTION WIDTH 16.9 % (11.5-14.0); SEGMENTED NEUTROPHILS % (AUTO) 60.2 % (42-78); TOTAL CELLS COUNTED % (AUTO) 100 %; WHITE BLOOD COUNT 5.8 10^3/uL (4.0-10.5)
--- NOTE | 2020-07-25 10:24 | RADIOLOGY REPORT (SQ) ---
EXAM DESCRIPTION: CHEST SINGLE VIEW IMAGES COMPLETED DATE/TIME: 07/25/2020 10:02 am REASON FOR STUDY: ams/decreased breath sounds COMPARISON: AP view of the chest from 06/04/2020 EXAM PARAMETERS: NUMBER OF VIEWS: One view. TECHNIQUE: An AP view of the chest was obtained. RADIATION DOSE: NA LIMITATIONS: None. FINDINGS: LUNGS AND PLEURA: Apparent right-sided diaphragmatic hernia with superior displacement of the hepatic flexure. There is no consolidation, pleural effusion or pneumothorax. MEDIASTINUM AND HILAR STRUCTURES: Hiatal hernia. HEART AND VASCULAR STRUCTURES: The cardiac silhouette is enlarged. BONES: No acute findings. HARDWARE: None in the chest. OTHER: No other finding. IMPRESSION: No acute cardiopulmonary process. TECHNICAL DOCUMENTATION: JOB ID: [id number] 2010 [employer]- All Rights Reserved Reading location - IP/workstation name: [email or web address]
[2020-07-25 10:32] LABS: ALBUMIN 4.2 g/dL (3.5-5.0); ALKALINE PHOSPHATASE 63 U/L (38-126); ANION GAP 9 (5-19); ASPARTATE AMINO TRANSFERASE 24 U/L (14-36); BILIRUBIN,TOTAL 0.6 mg/dL (0.2-1.3); BLOOD UREA NITROGEN 14 mg/dL (7-20); CALCIUM 10.3 mg/dL (8.4-10.2); CARBON DIOXIDE 29 mmol/L (22-30); CHLORIDE 99 mmol/L (98-107); GLUCOSE 91 mg/dL (75-110); POTASSIUM 3.9 mmol/L (3.6-5.0); TOTAL PROTEIN 6.8 g/dL (6.3-8.2)
--- NOTE | 2020-07-25 11:29 | ER Document Report ---
Entered by AZALIA FRANKEL SCRIBE 07/25/20 0930 Acting as scribe for:HELEN RODGERS MD ED General - General Chief Complaint: Near Syncope Stated Complaint: POSSIBE SYNCOPE Primary Care Provider: RUBI AGUIAR MD [Primary Care Provider] - Follow up as needed Information source: Patient Notes: This 79 year old female patient presents to the emergency department today with episodes of "mini blackouts" last night. Patient states she had short, transient episodes last night where she could not remember how she got somewhere. Patient states these all occurred at home and denies any falls or hitting her head. Patient states she is not experiencing episodes today. Patient reports recent diarrhea with a cold, and a headache last night. Patient states she only takes metoprolol at night and is compliant. TRAVEL OUTSIDE OF THE [place] IN LAST 30 DAYS: No - Related Data Allergies/Adverse Reactions: latex [Latex] Allergy (Intermediate, Verified 06/06/20 08:02) ITCHING levofloxacin [From Levaquin] Allergy (Unknown, Verified 06/06/20 08:02) saccharin Allergy (Verified 06/06/20 08:02) Penicillins Adverse Reaction (Mild, Verified 06/06/20 08:02) Yeast infections ibuprofen [From Motrin] Adverse Reaction (Verified 06/06/20 08:02) Past Medical History - General Information source: Patient - Social History Smoking Status: Never Smoker Cigarette use (# per day): No Lives with: Alone Family History: Reviewed & Not Pertinent, DM, Hypertension, Malignancy - Past Medical History Cardiac Medical History: Reports: Hx Congestive Heart Failure, Hx Coronary Artery Disease, Hx Heart Attack - nonstemi 2018, Hx Hypercholesterolemia, Hx Hypertension Pulmonary Medical History: Reports: Hx Asthma, Hx Bronchitis, Hx Pneumonia Comment Only: Hx COPD - States she has not been diagnosed with COPD GI Medical History: Reports: Hx Gastroesophageal Reflux Disease, Hx Hiatal Hernia Musculoskeletal Medical History: Reports Hx Arthritis Psychiatric Medical History: Reports: Hx Depression - on occassion Past Surgical History: Reports: Hx Abdominal Surgery - ODELL, Hx Appendectomy, Hx Orthopedic Surgery, Hx Tonsillectomy - Immunizations Hx Diphtheria, Pertussis, Tetanus Vaccination: No Hx Pneumococcal Vaccination: 07/10/15 Review of Systems - Review of Systems Constitutional: See HPI, Recent illness - cold EENT: No symptoms reported Cardiovascular: No symptoms reported Respiratory: No symptoms reported Gastrointestinal: See HPI, Diarrhea Genitourinary: No symptoms reported Female Genitourinary: No symptoms reported Musculoskeletal: No symptoms reported Skin: No symptoms reported Hematologic/Lymphatic: No symptoms reported Neurological/Psychological: See HPI, Headaches, Other - memory loss -: Yes All other systems reviewed and negative Physical Exam - Vital signs Vitals: Resp BP Pulse Ox 13 146/81 H 96 07/25/20 08:06 07/25/20 08:06 07/25/20 08:06 - General General appearance: Appears well, Alert - HEENT Head: Normocephalic, Atraumatic Eyes: Normal Extraocular movements intact: Yes Pupils: PERRL - Respiratory Respiratory status: No respiratory distress Chest status: Nontender Breath sounds: Normal Chest palpation: Normal - Cardiovascular Rhythm: Regular Heart sounds: Normal auscultation Murmur: No - Abdominal Inspection: Normal Distension: No distension Bowel sounds: Normal Tenderness: Nontender - Extremities General upper extremity: Normal inspection, Normal ROM General lower extremity: Normal inspection, Normal ROM. No: Edema - Neurological Neuro grossly intact: Yes Cognition: Normal Orientation: AAOx4 Umair Coma Scale Eye Opening: Spontaneous Umair Coma Scale Verbal: Oriented Umair Coma Scale Motor: Obeys Commands [place] Coma Scale Total: 15 Speech: Normal Cranial nerves: Normal Cerebellar coordination: Normal, Other - Normal heel-teran and ringer-nose tests Motor strength normal: LUE, RUE, LLE, RLE Additional motor exam normals: Equal advertising agency manager. No: Pronator drift Sensory: Normal - Psychological Associated symptoms: Normal affect, Normal mood - Skin Skin Temperature: Warm Skin Moisture: Dry Skin Color: Normal Course - Re-evaluation Re-evalutation: 07/25/20 11:23 Patient eating breakfast not showing any signs of distress at this time. Patient is ambulatory in the hallway speech is clear orientation x3 present. Currently has no complaints. - Vital Signs Vital signs: Temp Pulse Resp BP Pulse Ox 98.2 F 13 141/70 H 97 07/25/20 09:00 07/25/20 08:06 07/25/20 09:00 07/25/20 09:00 Vital signs stable - Laboratory Result Diagrams: 07/25/20 09:49 07/25/20 09:49 Laboratory results interpreted by me: 07/25/20 07/25/20 07/25/20 04:25 09:49 09:49 RDW 16.9 H Calcium 10.3 H Ur Leukocyte Esterase LARGE H 07/25/20 11:24 Labs essentially unremarkable, calcium slightly high at 10.3. - Diagnostic Test Radiology reviewed: Image reviewed, Reports reviewed Radiology results interpreted by me: 07/25/20 11:25 Chest X-Ray 07/25/20 09:28 IMPRESSION: No acute cardiopulmonary process. Chest x-ray shows no acute process. Discharge - Discharge Clinical Impression: Short-term memory loss Condition: Stable Disposition: HOME, SELF-CARE Additional Instructions: Last evening you report that you were having loss of space and time and memory of things that were just done. It seems as though that that was a transient event of last evening and today he has been no notice of that problem however he came to the emergency room for further evaluation no neurological exam is completely within normal range. No focal deficit speech clear no headache no problems with gait no motor loss no speech impediment. We are recommending that you do follow-up with your primary care physician for further evaluation should you continue having problems such as this and that there is no change in any of your medications today. Referrals: RUBI AGUIAR MD [Primary Care Provider] - Follow up as needed I personally performed the services described in the documentation, reviewed and edited the documentation which was dictated to the scribe in my presence, and it accurately records my words and actions.
[2020-07-25 12:02] VITALS: BP 154/63
== END 2020-07-25 12:02 | disposition home or self-care (01) ==
LOC: ER 04:10
DX: R41.3 Other amnesia (principal); R55 Syncope and collapse; R19.7 Diarrhea, unspecified; I11.0 Hypertensive heart disease with heart failure; I50.9 Heart failure, unspecified; E78.00 Pure hypercholesterolemia, unspecified; Z91.040 Latex allergy status; Z88.0 Allergy status to penicillin; Z88.6 Allergy status to analgesic agent; I25.2 Old myocardial infarction
CPT/HCPCS: 36415; 71045; 80053; 81001; 85025; 87086; 99284